=== PATIENT | male | born 1960 | race Caucasian/White ===

== ENCOUNTER 2022-05-31 23:31 | Emergency (ER) | payer OTHER, SELFPAY ==
[2022-05-31 23:40] VITALS: BP 111/84; PULSE 88; RESP 16; TEMP 36.9; O2SAT 94
[2022-06-01] MEDS: LIDOCAINE HCL 1% PF 30 ML VIAL (00:05)
[2022-06-01] MEDS: TETANUS/DIPHTHERIA TOXOIDS ADSORB 0.5 ML VIAL (*BKC) IM (00:41)
--- NOTE | 2022-06-01 00:49 | ED.WOUNDLAC ---
HPI - Wound/Laceration General Chief Complaint: Wound/Laceration Stated Complaint: laceration R hand Time Seen by Provider: 05/31/22 23:42 History of Present Illness HPI narrative: 62-year-old male presents the emergency room for evaluation of laceration to his left hand. Patient states that he was using a rubber grinder, when his hand slipped cutting the webbing of his left hand. Patient states he has full range of motion with his index and thumb fingers. Tetanus is not up-to-date injury occurred approximately 7 hours prior to arrival. Related Data Allergies Allergy/AdvReac Type Severity Reaction Status Date / Time latex Allergy Unknown Hives Verified 06/01/22 00:03 Review of Systems Review of Systems: CONSTITUTIONAL: Denies fever, chills, or sweats. EYES: Denies visual changes, redness, or discharge. ENT: Denies rhinorrhea, congestion, sore throat, or otalgia. CARDIOVASCULAR: Denies chest pain, palpitations, or edema. RESPIRATORY: Denies cough or dyspnea. GASTROINTESTINAL: Denies abdominal pain, nausea, vomiting, or diarrhea. GENITOURINARY: Denies dysuria or hematuria. SKIN: Reports laceration to left hand MUSCULOSKELETAL: Denies back pain, joint pain, or myalgia. NEUROLOGIC: Denies headache, numbness, dizziness, or weakness. PSYCHIATRIC: Denies anxiety or depression. [facility] Family History Family History Other Acute myocardial infarction Diabetes mellitus Family history of alcoholism Hypertension Exam Narrative: GENERAL: Well-appearing, well-nourished, no physical limitations, and in no acute distress. HEAD: Normocephalic, atraumatic. EYES: Conjunctivae normal, PERRLA and EOMI. ENT: External nose normal, Nares clear, no rhinorrhea or epistaxis. Mucous membranes moist. Oropharynx without tonsillar hypertrophy exudate or other lesions. External ears normal, bilateral TMs normal bilaterally NECK: Supple. No meningeal signs. No adenopathy or masses. No carotid bruits or JVD CHEST: Clear to auscultation. No respiratory distress. No wheezes rales or rhonchi. No tenderness. HEART: Regular rate and rhythm. No murmur heard. Normal peripheral pulses. EXTREMITIES: Normal range of motion. No edema. No clubbing or cyanosis left hand: Full range of motion of the thumb and index fingers actively and passively. Neurovascular is intact distally SKIN: Left hand: 5 cm laceration to the dorsal aspect of the webbing. NEURO: No focal deficits. Alert and oriented x3. MAEW. CN's II-XI intact bilaterally, normal gait PSYCH: Cooperative. Normal mood and affect. Course Vital Signs Vital signs: Vital Signs Temperature 36.9 C 05/31/22 23:40 Pulse Rate 88 05/31/22 23:40 Respiratory Rate 16 05/31/22 23:40 Blood Pressure 111/84 05/31/22 23:40 Pulse Oximetry 94 05/31/22 23:40 Oxygen Delivery Room Air 05/31/22 23:40 Temperature 36.9 C 05/31/22 23:40 Pulse Rate 88 05/31/22 23:40 Respiratory Rate 16 05/31/22 23:40 Blood Pressure 111/84 05/31/22 23:40 Pulse Oximetry 94 05/31/22 23:40 Oxygen Delivery Room Air 05/31/22 23:40 Procedures Laceration Laceration 1: Date: 06/01/22 Time: 00:53 Site: hand Side (If applicable): left Size (cm): 5 Description: irregular and contaminated Depth: simple, single layer and involves muscle layer Local Anesthetic: lidocaine 1% Amount of anesthesia used (mL): 15 Pre-repair: irrigated, irrigated extensively and extensive debridement ====== Skin Level ====== Skin layer closed with: nylon Size (cm): 4-0 Number of sutures: 11 Technique: simple, interrupted ====== Subcutaneous Layer ====== Subcutaneous layer closed with: vicryl Size: 3-0 Number of sutures: 3 Technique: simple, interrupted ====== Muscle Layer ====== ====== Tendon Layer ====== Discharge Plan Discharge Clini
[2022-06-01 01:20] VITALS: BP 110/74; PULSE 84; RESP 16; O2SAT 96
== END 2022-06-01 01:21 | disposition home or self-care (01) ==
PROVIDERS: Emergency Provider Nurse Practitioner Family
DX: S61.411A Laceration without foreign body of right hand, initial encounter (principal); W31.1XXA Contact with metalworking machines, initial encounter; Z23 Encounter for immunization
CPT/HCPCS: 12042; 90471; 90714; 96365; 99284; J0696

== ENCOUNTER 2023-11-11 06:42 | Inpatient (IN) | payer OTHER, SELFPAY ==
[2023-11-11] VITALS (37 sets, daily range): BP systolic 119–152; BP diastolic 74–105; PULSE 73–98; RESP 13–47; TEMP 36.2–36.7; O2SAT 95–100; BMI 20.8
--- NOTE | ~2023-11-11 | XR_ITS ---
EXAMINATION: XR chest 2V DATE: 11/11/2023 07:43 INDICATION: Hypoxia and shortness of breath TECHNIQUE: frontal and lateral views of the chest were obtained. COMPARISON: None FINDINGS: Increased interstitial pattern and peripheral curly B lines in the bilateral mid and lower lung zones consistent with mild pulmonary edema. There are small bilateral pleural effusions at the posterior s ulci. No pneumothorax. Heart size is normal. Mild to moderate thoracic spondylosis with mild anterior wedging of a couple lower thoracic vertebral bodies. IMPRESSION: 1. Likely congestive heart failure with mild pulmonary edema versus less likely pneumonia. 2. small bilateral pleural effusions. Reviewed, dictated and finalized at location B. PT DEVELOPER
--- NOTE | 2023-11-11 06:46 | ECG_ITS ---
Measurements Intervals [place] Rate: 100 P: [place]: 0 QRS: 102 QRSD: 102 T: 221 QT: 366 QTc: 472 Interpretive Statements ATRIAL FIBRILLATION WITH RAPID VENTRICULAR RESPONSE BASELINE ARTIFACT LIMITS INTERPRETATION NO PREVIOUS ECG AVAILABLE FOR COMPARISON Electronically Signed On 11-11-2023 16:32:38 JET INSPECTOR by Alicia Mena M.D.
--- NOTE | 2023-11-11 07:11 | PC.NURSE ---
Report given to SRI Ro at this time.
[2023-11-11 07:14] LABS: Basophils Absolute Auto 0.1 K/mm3 (0.0-0.1); Basophils Percent Auto 0.9 % (0.2-1.2); Eosinophils Absolute Auto 0.2 K/mm3 (0-0.3); Eosinophils Percent Auto 1.6 % (0-4.4); Hematocrit 41.9 % (42.0-52.0); Hemoglobin 12.9 g/dL (14.0-18.0); Immature Granulocyte Absolute 0.03 K/mm3 (0.00-0.031); Immature Granulocyte Percent A 0.3 % (0-0.5); Lymphocytes Absolute Auto 2.85 K/mm3 (0.9-3.2); Lymphocytes Percent Auto 30.4 % (18.3-44.2); Mean Corpuscular HGB Conc 30.8 g/dl (32-36); Mean Corpuscular Hemoglobin 31.9 pg (26-34); Mean Corpuscular Volume 103.7 fl (80-100); Mean Platelet Volume 9.8 fl (7.4-10.4); Monocytes Absolute Auto 0.8 K/mm3 (0.1-0.6); Monocytes Percent Auto 8.7 % (2.6-8.5); Neutrophils Absolute Auto 5.5 K/mm3 (1.3-6.7); Neutrophils Percent Auto 58.1 % (45.5-73.1); Platelet Count Result 295 k/mm3 (150-375); Red Blood Count 4.04 M/mm3 (4.6-6.20); Red Cell Distribution Width 14.3 % (11.5-14.5); White Blood Count 9.4 K/mm3 (4.5-10.0)
[2023-11-11 07:22] LABS: Alanine Aminotransferase 50 U/L (6-50); Albumin Level 4.2 g/dL (3.5-5.1); Alkaline Phosphatase 91 U/L (38-126); Anion Gap 6 mmol/L (8-16); Aspartate Amino Transferase 78 U/L (17-59); Bilirubin,Total 0.8 mg/dL (0.2-1.3); Blood Urea Nitrogen 12 mg/dL (9-20); Carbon Dioxide 28 mmol/L (22-30); Chloride 106 mmol/L (98-107); Estimated CRCL calculation 71 ml/min; Estimated Glomerular Filt Rate > 60; Glucose 179 mg/dL (65-110); Potassium 4.1 mmol/L (3.4-5.0); Sodium 140 mmol/L (137-145)
--- NOTE | 2023-11-11 07:38 | ED_ITS ---
HPI - General Adult General Chief complaint: Shortness of Breath/Dyspnea Stated complaint: SOB Time Seen by Provider: 11/11/23 06:58 History of Present Illness HPI narrative: Patient is a 63-year-old male who presents ER with shortness of breath. Reports that has been occurring more frequently over last week. It will occur with exertion. Also wakes him mouth out of sleep and he will be sweating and dyspnea. He reports he has history of COPD and this is typical of a flare. No fevers or chills or sweats. Has no chest discomfort. He has tried inhalers without improvement. Related Data Allergies Allergy/AdvReac Type Severity Reaction Status Date / Time latex Allergy Unknown Hives Verified 11/11/23 07:03 Review of Systems Review of Systems: All systems reviewed & are unremarkable except as noted in HPI and below Constitutional: Constitutional: Denies chills, Reports fatigue and Denies fever(s) Comments: Sweats ENT: Reports system reviewed and no additional complaints, except as documented Cardiovascular: Cardiovascular: Reports no additional cardiovascular complaints Respiratory: Respiratory: Denies cough, Reports dyspnea and Denies wheezing Gastrointestinal: Gastrointestinal: Reports no additional gastrointestinal complaints [facility] Past Medical History Medical History (Updated 11/11/23 @ 15:17 by Alec Loera MD) Atrial fibrillation COPD (chronic obstructive pulmonary disease) Family History Family History Other Acute myocardial infarction Diabetes mellitus Family history of alcoholism Hypertension Exam Narrative: GENERAL: Well-appearing, well-nourished, and in no acute distress. HEAD: Normocephalic, atraumatic. ENT: Mucous membranes moist. NECK: Supple. CHEST: diminished bilaterally. No respiratory distress. HEART: irregularly irregular rate and rhythm. Normal peripheral pulses. ABDOMEN: Soft, nontender, nondistended. EXTREMITIES: Normal range of motion. +1 edema. SKIN: Warm, dry, no rash. NEURO: Alert and oriented x3. PSYCH: Normal mood and affect. Course Course Emergency Course: Patient informed of lab and imaging results. Diuresis ordered. Admit to hospitalist service for further treatment evaluation. Patient does not have a char filter tank tender head nor does he report history of heart failure. Vital Signs Vital signs: Vital Signs Temperature 97.8 F 11/11/23 06:42 Pulse Rate 91 11/11/23 06:42 Respiratory Rate 22 H 11/11/23 06:42 Blood Pressure 148/93 H 11/11/23 06:42 Pulse Oximetry 97 11/11/23 06:42 Oxygen Delivery Nasal Cannula 11/11/23 06:42 Oxygen Flow Rate 4 11/11/23 06:42 Temperature 97.9 F 11/11/23 13:47 Pulse Rate 81 11/11/23 13:47 Respiratory Rate 15 11/11/23 13:47 Blood Pressure 135/101 H 11/11/23 13:47 Pulse Oximetry 99 11/11/23 13:47 Oxygen Delivery Nasal Cannula 11/11/23 07:12 Oxygen Flow Rate 3 11/11/23 07:12 Medical Decision Making Vital Signs Vital Signs: Vital Signs Temperature 97.8 F 11/11/23 06:42 Pulse Rate 91 11/11/23 06:42 Respiratory Rate 22 H 11/11/23 06:42 Blood Pressure 148/93 H 11/11/23 06:42 Pulse Oximetry 97 11/11/23 06:42 Oxygen Delivery Nasal Cannula 11/11/23 06:42 Oxygen Flow Rate 4 11/11/23 06:42 Temperature 97.9 F 11/11/23 13:47 Pulse Rate 81 11/11/23 13:47 Respiratory Rate 15 11/11/23 13:47 Blood Pressure 135/101 H 11/11/23 13:47 Pulse Oximetry 99 11/11/23 13:47 Oxygen Delivery Nasal Cannula 11/11/23 07:12 Oxygen Flow Rate 3 11/11/23 07:12 Lab Data 11/11/23 07:05 11/11/23 07:05 Labs: Lab Results 11/11/23 Range/Units 07:05 WBC 9.4 (4.5-10.0) K/mm3 RBC 4.04 L (4.6-6.20) M/mm3 Hgb 12.9 L (14.0-18.0) g/dL Hct 41.9 L (42.0-52.0) % MCV 103.7 H (80-100) fl MCH 31.9 (26-34) pg MCHC 30.8 L (32-36) g/dl RDW 14.3 (11.5-14.5) % Plt Count 295 (150-375) k/mm3 MPV 9.8 (7.4-10.4) fl Immature Gran % (Auto) 0.3 (0-0.5) % Neut % (Auto) 58.1 (45.5-73.1) % Lymph % (Auto) 30.4 (18.3-44.2) % [facility] % (Auto) 8.7 H (2.6-8.5) % Eos % (Auto) 1.6 (0-4.4) % Baso % (Auto) 0.9 (0.2-1.2) % Lymph # (Auto) 2.85 (0.9-3.2) K/mm3 [facility] # (Auto) 0.8 H (0.1-0.6) K/mm3 Eos # (Auto) 0.2 (0-0.3) K/mm3 Baso # (Auto) 0.1 (0.0-0.1) K/mm3 Abs Immat Gran (auto) 0.03 (0.00-0.031) K/mm3 Absolute Neuts (auto) 5.5 (1.3-6.7) K/mm3 Absolute Nucleated RBC 0.0 (0.0-0.012) K/mm3 Nucleated RBC % 0.0 (0.0-0.2) % Sodium 140 (137-145) mmol/L Potassium 4.1 (3.4-5.0) mmol/L Chloride 106 (98-107) mmol/L Carbon Dioxide 28 (22-30) mmol/L Anion Gap 6 L (8-16) mmol/L BUN 12 (9-20) mg/dL Creatinine 0.90 (0.7-1.3) mg/dL Estim Creat Clear Calc 71 ml/min Estimated GFR > 60 (59 - ) Glucose 179 H (65-110) mg/dL Calcium 9.0 (8.4-10.2) mg/dL Total Bilirubin 0.8 (0.2-1.3) mg/dL AST 78 H (17-59) U/L ALT 50 (6-50) U/L Alkaline Phosphatase 91 (38-126) U/L NT-Pro-B Natriuret Pep 6560 H (19.9-100) pg/mL Total Protein 8.0 (6.3-8.2) g/dL Albumin 4.2 (3.5-5.1) g/dL Imaging Data Radiologist's impression: ITS Impressions Chest X-Ray 11/11/23 08:21 IMPRESSION: 1. Likely congestive heart failure with mild pulmonary edema versus less likely pneumonia. 2. small bilateral pleural effusions. ECG Data EKG #1: ECG completion date: 11/11/23 ECG completion time: 06:55 EKG Interpretation: tachycardia (100), atrial fibrillation, non-specific ST changes, normal QRS, normal QT and left axis Critical Care Time Critical Care Time Critical Care Time: Yes Total Critical Care Time: 35 Discharge Plan Discharge Clinical Impression: New onset of congestive heart failure, Acute hypoxic respiratory failure, COPD (chronic obstructive pulmonary disease) Patient Disposition: Still a Patient Condition: Stable
[2023-11-11] MEDS: IPRATROPIUM 0.5 MG/ALBUTEROL SULFATE 2.5 MG AMPUL.NEB 3 ML INHALATION (08:00)
[2023-11-11 10:11] LABS: NT Pro B Type Natriuretic Pept 6560 pg/mL (19.9-100)
[2023-11-11] MEDS: FUROSEMIDE INJ 40 MG/4 ML VIAL IV PUSH ×2 (11:24→20:19)
--- NOTE | 2023-11-11 12:21 | P.HP_ITS ---
H&P: HPI History of Present Illness Date/Time: 11/11/23 12:21 Chief Complaint: shortness of breath Narrative: This is a 63-year-old male with a significant past medical history of COPD, atrial fibrillation who presented to the emergency for evaluation of his shortness of breath. Patient states that he has experiencing worsening shortness of breath over the last week. He also has been experiencing orthopnea sweating and dyspnea at night that wakes him up out of his sleep. Patient does state that he lays flat in the bed and has noticed that he does not have the symptoms whenever he is in the recliner. He tried using his inhalers at home without any improvement in his symptoms. On examination today patient is alert and oriented x3, lying in the bed. He denies any fever, chills, headache, nausea, vomiting, diarrhea, constipation, abdominal pain, chest pain. He endorses shortness of breath, diaphoresis Workup in the hospital includes a chest x-ray which is showing congestive heart failure with mild pulmonary edema, small bilateral pleural effusions, peripheral [place] B lines in the bilateral mid and lower lung zones. EKG showing AFib with RVR with a rate of 100. Labs revealed hemoglobin of 12.9, hematocrit 41.9, AST 78, proBNP 6560. Patient was given a DuoNeb and 40 mg of IV Lasix while in the ED. Patient is afebrile, B/P ranging 129/81-147/96, currently on 3L NC. Cardiology consulted. Plan for echo tomorrow. Review of Systems Review of Systems: All systems reviewed & are unremarkable except as noted in HPI and below Constitutional: Constitutional: Reports as per HPI and Reports no additional constitutional complaints Eyes: Eyes: Reports as per HPI and Reports no additional eye complaints ENT: Reports system reviewed and no additional complaints, except as documented and Reports as per HPI Cardiovascular: Cardiovascular: Reports as per HPI and Reports no additional cardiovascular complaints Respiratory: Respiratory: Reports as per HPI and Reports no additional respiratory complaints Gastrointestinal: Gastrointestinal: Reports as per HPI and Reports no additional gastrointestinal complaints Genitourinary: Genitourinary: Reports no additional male genitourinary complaints and Reports as per HPI Musculoskeletal: Musculoskeletal: Reports no additional musculoskeletal complaints and Reports as per HPI Integumentary/Breasts: Skin/Breast: Reports system reviewed and no additional complaints, except as docu and Reports as per HPI Neurologic: Reports system reviewed and no additional complaints, except as documented and Reports as per HPI Psychiatric: Psychiatric: Reports no additional psychiatric complaints and Reports as per HPI [facility] Past Medical History Medical History (Updated 11/11/23 @ 17:04 by Marce Webb APRN) Alcohol abuse Atrial fibrillation COPD (chronic obstructive pulmonary disease) Opioid abuse Surgical History Surgical History History of hernia surgery Family History Family History Father Diabetes mellitus Hypertension Acute myocardial infarction Sibling Family history of alcoholism Mother Dementia Social History Social History Smoking status: Current some day smoker Alcohol intake: former Substance use: former Substance use type: painkillers Other substance usage details: October 24 was discharge date from hospital for alcoholism. 2 drinks since Do You Feel Safe in your Home?: Yes Lack of Transportation: YES Lack of Food: Never True Current Housing: I Have Housing Concerned About Future Housing: No Difficulty Paying Gas/Electric Bills: No Difficulty Paying for Meds: No Currently Unemployed: No Education: High School Diploma/GED Difficulty w/ Childcare or Family Care: No Spiritual care concerns: No Meds Home Medications and Allergies Home Medications Medication Instructions Recorded Confirmed Type cephalexin 500 mg capsule 500 mg PO Q8H #21 caps 06/01/22 Rx meloxicam 15 mg tablet 15 mg PO DAILY #14 tabs 06/01/22 Rx Allergies Allergy/AdvReac Type Severity Reaction Status Date / Time latex Allergy Unknown Hives Verified 11/11/23 07:03 Vital Signs Vital Signs - 24 hr 11/11/23 06:42 11/11/23 06:58 11/11/23 07:02 Temperature 97.8 F Pulse Rate 91 Respiratory Rate 22 H Blood Pressure 148/93 H Pulse Oximetry 97 96 97 Oxygen Delivery Nasal Cannula Nasal Cannula Nasal Cannula Oxygen Flow Rate 4 4 4 11/11/23 07:02 11/11/23 07:12 11/11/23 07:33 Temperature Pulse Rate 93 83 Respiratory Rate 28 H Blood Pressure 144/99 H Pulse Oximetry 100 99 Oxygen Delivery Nasal Cannula Oxygen Flow Rate 3 11/11/23 08:00 11/11/23 08:10 11/11/23 08:53 Temperature Pulse Rate 86 81 80 Respiratory Rate 24 H 24 H 21 H Blood Pressure 139/100 H Pulse Oximetry 98 Oxygen Delivery Oxygen Flow Rate 11/11/23 09:59 11/11/23 07:42 11/11/23 07:44 Temperature Pulse Rate 90 88 96 Respiratory Rate 19 26 H 24 H Blood Pressure 129/81 152/105 H Pulse Oximetry 97 96 97 Oxygen Delivery Oxygen Flow Rate 11/11/23 07:45 11/11/23 07:46 11/11/23 08:00 Temperature Pulse Rate 92 90 92 Respiratory Rate 25 H 29 H 22 H Blood Pressure 135/102 H Pulse Oximetry 99 99 Oxygen Delivery Oxygen Flow Rate 11/11/23 08:15 11/11/23 08:30 11/11/23 08:31 Temperature Pulse Rate 98 80 73 Respiratory Rate 22 H 47 H 29 H Blood Pressure 139/100 H Pulse Oximetry Oxygen Delivery Oxygen Flow Rate 11/11/23 08:45 11/11/23 09:00 11/11/23 09:15 Temperature Pulse Rate 79 90 83 Respiratory Rate 16 18 18 Blood Pressure Pulse Oximetry 100 96 Oxygen Delivery Oxygen Flow Rate 11/11/23 09:16 11/11/23 09:30 11/11/23 09:45 Temperature Pulse Rate 81 84 77 Respiratory Rate 17 16 15 Blood Pressure 129/81 Pulse Oximetry 99 100 100 Oxygen Delivery Oxygen Flow Rate 11/11/23 10:00 11/11/23 10:01 11/11/23 10:15 Temperature Pulse Rate 79 84 81 Respiratory Rate 19 21 H 16 Blood Pressure 147/96 H Pulse Oximetry 98 98 99 Oxygen Delivery Oxygen Flow Rate 11/11/23 10:34 11/11/23 10:53 11/11/23 11:05 Temperature Pulse Rate 81 78 85 Respiratory Rate 14 13 14 Blood Pressure Pulse Oximetry 99 100 100 Oxygen Delivery Oxygen Flow Rate 11/11/23 11:15 Temperature Pulse Rate 77 Respiratory Rate 13 Blood Pressure 135/97 H Pulse Oximetry 100 Oxygen Delivery Oxygen Flow Rate Exam Narrative: General: In no acute distress, well nourished Head: atraumatic, no encephalopathy Eyes: EOMI, right pupil 2mm and reactive, left pupil 3mm and reactive, sclera clear ENT: moist mucous membranes, nasal passages clear Neck: supple, no JVD, no adenopathy, trachea midline Cardiac: Normal S1 and S2. Currently in A fib No murmur, gallops or friction rubs, peripheral pulses intact. Respiratory: Lungs course, no adventitious lung sounds, no acute respiratory distress or use of accessory muscles, currently on 3L NC Gastrointestinal: soft, slightly distended, non-tender, normoactive bowel sounds. : voiding without difficulty. Extremities: moves all extremities well, no edema, good ROM, strength 5/5 Skin: clean, dry, intact. No wounds or lesions. Neuro: Alert and oriented x4, cranial nerves intact, no neuro deficits. Psych: normal mood, normal affect, interactive H&P: Results Labs Labs: Short CBC 11/11/23 Range/Units 07:05 WBC 9.4 (4.5-10.0) K/mm3 Hgb 12.9 L (14.0-18.0) g/dL Hct 41.9 L (42.0-52.0) % Plt Count 295 (150-375) k/mm3 BMP 11/11/23 07:05 Sodium 140 Potassium 4.1 Chloride 106 Carbon Dioxide 28 BUN 12 Creatinine 0.90 Glucose 179 H Calcium 9.0 Liver Function 11/11/23 Range/Units 07:05 Total Bilirubin 0.8 (0.2-1.3) mg/dL AST 78 H (17-59) U/L ALT 50 (6-50) U/L Alkaline Phosphatase 91 (38-126) U/L Albumin 4.2 (3.5-5.1) g/dL Imaging Chest x-ray: Radiologist's impression: EXAMINATION: XR chest 2V DATE: 11/11/2023 07:43 INDICATION: Hypoxia and shortness of breath TECHNIQUE: frontal and lateral views of the chest were obtained. COMPARISON: None FINDINGS: Increased interstitial pattern and peripheral curly B lines in the bilateral mid and lower lung zones consistent with mild pulmonary edema. There are small bilateral pleural effusions at the posterior sulci. No pneumothorax. Heart size is normal. Mild to moderate thoracic spondylosis with mild anterior wedging of a couple lower thoracic vertebral bodies. IMPRESSION: 1. Likely congestive heart failure with mild pulmonary edema versus less likely pneumonia. 2. small bilateral pleural effusions. Reviewed, dictated and finalized at location B. AL WORKER Assessment and Plan Assessment and plan (1) Acute hypoxic respiratory failure: Code(s): J96.01 - Acute respiratory failure with hypoxia Status: Acute Assessment and Plan: * likely secondary to new onset CHF * patient started on 3 L nasal cannula * wean O2 for an oxygen saturation of greater than 92% * chest x-ray showing congestive heart failure with mild pulmonary edema, small bilateral pleural effusions * he was given 40 mg of IV Lasix while in the ED and a DuoNeb * continue Lasix 40 mg IV push q.12 hour (2) New onset of congestive heart failure: Code(s): I50.9 - Heart failure, unspecified Status: Acute Assessment and Plan: * new onset, patient presented with shortness of breath, orthopnea that has been worsening over the last week * cardiology consult * patient currently on 3 L nasal cannula * he was given 40 mg of IV Lasix well in the ED along with a DuoNeb * continue Lasix 40 mg IV push q.12 hour * heart healthy diet * dietitian consult * EKG showing AFib with RVR with a rate of 100 * echo ordered * continuous cardiac monitoring ordered * daily weight * strict intake and output * Patient takes losartan 50 mg daily, we will go ahead and restart(information obtained pharmacy) (3) COPD (chronic obstructive pulmonary disease): Code(s): J44.9 - Chronic obstructive pulmonary disease, unspecified Status: Chronic Assessment and Plan: * Not on any home O2 or CPAP * Albuterol inhaler ordered shortness of breath p.r.n. (4) Atrial fibrillation: Code(s): I48.91 - Unspecified atrial fibrillation Status: Chronic Assessment and Plan: * EKG showing AFib with RVR, rate of 100 * Currently Xarelto 20 mg p.o. b.i.d. per pharmacy in [place] (5) Alcohol abuse: Code(s): F10.10 - Alcohol abuse, uncomplicated Status: Acute Assessment and Plan: * 175 ml of whiskey a day, recently quit * Patient has no history of withdrawal however he had a recent admission the beginning of October for alcohol intoxication and fentanyl abuse. He was at [facility]. States that he essentially stopped drinking at that point but he did a drinker to since then that he did report to us. * PAWSS score >5 noted by bedside nursing * CIRI protocol ordered * Started thiamin and folic acid * Will check vitamin and folic acid in the morning on lab * Recent admission at [facility] for alcohol intoxication fentanyl overdose * Currently on Suboxone however this is non formulary here and patient did not bring along with him (6) Opioid abuse: Code(s): F11.10 - Opioid abuse, uncomplicated Status: Acute Assessment and Plan: * History of fentanyl abuse * See above Quality VTE Prophylaxis VTE prophylaxis: pharmacologic ordered
[2023-11-11] MEDS: RIVAROXABAN 20 MG TABLET PO (18:15)
[2023-11-11] MEDS: chlordiazePOXIDE (*CRX) 25 MG CAPSULE PO ×2 (18:15→23:17)
--- NOTE | 2023-11-11 19:28 | ADMGEN ---
This patient, Javad Gant, was admitted to IMU Room 205-02 at 1605. Patient/family oriented to hospital policies and general routines including ID bracelet, bed and alarms, visiting hours, pain management, procedures, bathroom and other care routines, personal items, smoking policy, room service/diet, and visiting hours. Information on how to activate the Rapid Response Team has been discussed. Patient/Family are encouraged to report perceived risks to care and to ask questions if they do not understand what they are told or what they should do.
[2023-11-11] MEDS: MONTELUKAST SODIUM 10 MG TABLET PO (20:19)
[2023-11-11 21:00] LABS: Glucose Point of Care 203 mg/dl (65-105)
[2023-11-11] MEDS: NICOTINE (*PBKC) 21 MG PATCH 1 PATCH TRANSDERM (23:15)
[2023-11-11] MEDS: PANTOPRAZOLE 40 MG TABLET PO (23:17)
[2023-11-12] VITALS (18 sets, daily range): BP systolic 108–127; BP diastolic 62–74; PULSE 61–123; RESP 12–16; TEMP 36.1–36.6; O2SAT 92–98; BMI 21.7
[2023-11-12 04:46] LABS: Hematocrit 32.6 % (42.0-52.0); Hemoglobin 10.4 g/dL (14.0-18.0); Mean Corpuscular HGB Conc 31.9 g/dl (32-36); Mean Corpuscular Hemoglobin 31.8 pg (26-34); Mean Corpuscular Volume 99.7 fl (80-100); Mean Platelet Volume 9.7 fl (7.4-10.4); Platelet Count Result 258 k/mm3 (150-375); Red Blood Count 3.27 M/mm3 (4.6-6.20); White Blood Count 7.7 K/mm3 (4.5-10.0)
[2023-11-12 04:57] LABS: Alanine Aminotransferase 31 U/L (6-50); Albumin Level 3.4 g/dL (3.5-5.1); Alkaline Phosphatase 68 U/L (38-126); Anion Gap 3 mmol/L (8-16); Aspartate Amino Transferase 31 U/L (17-59); Bilirubin,Total 0.5 mg/dL (0.2-1.3); Blood Urea Nitrogen 18 mg/dL (9-20); Calcium 8.5 mg/dL (8.4-10.2); Carbon Dioxide 33 mmol/L (22-30); Chloride 100 mmol/L (98-107); Estimated CRCL calculation 77 ml/min; Estimated Glomerular Filt Rate > 60; Glucose 122 mg/dL (65-110); Magnesium 1.8 mg/dL (1.6-2.3); Potassium 3.3 mmol/L (3.4-5.0); Sodium 136 mmol/L (137-145)
[2023-11-12] MEDS: chlordiazePOXIDE (*CRX) 25 MG CAPSULE PO ×3 (05:33→17:27)
--- NOTE | 2023-11-12 06:00 | ECHO_ITS ---
Patient Info Name: Javad Gant Age: 63 years : 1960 Gender: Male Ht: 70 in Wt: 150 lbs BSA: 1.83 m2 HR: 89 bpm BP: 127 / 61 mmHg Heart Rhythm: Sinus Rhythm Technical Quality: Fair Exam Date: 11/12/2023 8:57 AM Exam Location: Echo Lab Patient Status: Inpatient Admit Date: 11/11/2023 Staff Ordering Physician: Alec Loera MD Bb Shot Packer: Vivienne Becerra RDCS Attending Provider: Ralph Velasquez MD Referring Physician: Evaristo TUCKER; Exam Type: CA echo dop color flow w con Study Info Indications - CHF Complete two-dimensional, color flow and Doppler transthoracic echocardiogram is performed with contrast to opacify the left ventricle and to improve the deliniation of the left ventricle endocardial borders. Contrast/Agitated Saline Contrast/Ag. Saline: Definity Amount: 3.00 ml Summary 1. Left ventricular chamber dimension is normal. 2. Left ventricular systolic function is normal, estimated at 50-55%. 3. There is moderately increased left ventricular wall thickness. 4. Right ventricular systolic function is normal. 5. Left atrial chamber dimension is severely enlarged. 6. Right atrial chamber dimension is moderately enlarged. 7. There is moderate to severe mitral valve regurgitation. 8. There is mild tricuspid valve regurgitation. 9. Pulmonary hypertension, estimated pulmonary arterial systolic pressure is 45 mmHg. Left Ventricle Left ventricular chamber dimension is normal. Left ventricular systolic function is normal, estimated at 50-55%. There is moderately increased left ventricular wall thickness. Right Ventricle Right ventricular chamber dimension is normal. Right ventricular systolic function is normal. Left Atria Left atrial chamber dimension is severely enlarged. Right Atria Right atrial chamber dimension is moderately enlarged. Atrial Septum Intact interatrial septum visualized by color flow imaging. Aortic Valve The aortic valve is not well visualized. There is no aortic valve stenosis. There is trace aortic valve regurgitation. There is mild aortic valve calcification. Pulmonic Valve The pulmonic valve is not well visualized. There is trace pulmonic regurgitation. Mitral Valve There is moderate to severe mitral valve regurgitation. Tricuspid Valve There is mild tricuspid valve regurgitation. Pulmonary hypertension, estimated pulmonary arterial systolic pressure is 45 mmHg. Pericardium/Pleural There is no pericardial effusion. Inferior Vena Cava Dilated inferior vena cava with <50% collapse upon inspiration consistent with elevated right atrial pressure, 15 mmHg. Aorta The aortic root size at the sinus of Valsalva is normal. Left Ventricular Outflow Tract Name Value Normal LVOT 2D LVOT Diameter 1.94 cm LVOT Doppler LVOT Peak Gradient 2 mmHg LVOT Mean Gradient 1 mmHg LVOT VTI 14.89 cm LVOT VTI/AV VTI Ratio 0.65 LVOT Stroke Volume 43.89 ml LVOT CO 2.77 l/min LVOT CI 1.51 L/min/m2 Pulmonic Valve Name Value Normal RVOT Doppler RVOT Peak Gradient 1 mmHg PV Doppler PV Peak Gradient 3 mmHg Mitral Valve Name Value Normal MV Doppler MV Decel [place] 323.00 cm/s2 MV PHT 0 s MV Area (PHT) 1.94 cm2 4.00-5.00 MV Regurgitation Doppler MR Peak Gradient 52 mmHg MV Diastolic Function MV E Peak Velocity 126.38 cm/s MV A Peak Velocity 82.20 cm/s MV E/A 1.54 MV Decel Time 0 s MV Annular TDI MV E/e' (Septal) 16.21 <=8.00 MV E/e' (Lateral) 14.34 <=8.00 MV E/e' (Average) 15.27 Tricuspid Valve Name Value Normal TV Regurgitation Doppler TR Peak Velocity 274.03 cm/s TR Peak Gradient 30 mmHg Estimated PAP/RSVP RA Pressure 15 mmHg <=5 PA Systolic Pressure 45 mmHg <36 RV Systolic Pressure 45 mmHg <36 Aortic Valve Name Value Normal AV Doppler AV Peak Velocity 126.03 cm/s AV Peak Gradient 6 mmHg AV Mean Gradient 4 mmHg AV VTI 23.04 cm AV Area (Cont Eq VTI) 1.91 cm2 >=3.00 AV Area (Cont Eq Nestor) 1.67 cm2 AV Regurgitation 2D LVOT Area 2.95 cm2 Ventricles Name Value Normal LV Dimensions 2D/MM IVS Diastolic Thickness (2D) 1.32 cm 0.60-1.00 LVID Diastole (2D) 4.39 cm 4.20-5.80 LVIW Diastolic Thickness (2D) 1.25 cm 0.60-1.00 LVID Systole (2D) 3.19 cm 2.50-4.00 LVOT Diameter 1.94 cm LV Mass (2D Cubed) 210.80 g 88.00-224.00 LV Mass Index (2D Cubed) 0.01 g/cm2 0.00-0.01 Relative Wall Thickness (2D) 0.57 LV Fractional Shortening/Ejection Fraction 2D/MM LV Fractional Shortening (2D) 27 % 25-43 LV EF (2D Teicholz) 53 % 52-72 LV Diastolic Volume (4C MOD) 196.41 ml LV EF (4C MOD) 50 % LV Diastolic Volume (2C MOD) 177.08 ml LV EF (2C MOD) 57 % LV Diastolic Volume (BP MOD) 200.09 ml 62.00-150.00 LV Diastolic Volume Index (BP MOD) 0.11 l/m2 0.03-0.07 LV Systolic Volume (BP MOD) 88.85 ml 21.00-61.00 LV Systolic Volume Index (BP MOD) 0.05 l/m2 0.01-0.03 LV EF (BP MOD) 56 % 52-72 LV Diastolic Length (4C) 11.27 cm LV Systolic Length (4C) 8.97 cm LV Stroke Volume (4C MOD) 98.46 ml Atria Name Value Normal LA Dimensions LA Volume (4C A-L) 106.88 ml RA Dimensions RA Area (4C) 25.62 cm2 <=18.00 Report Signatures
[2023-11-12 06:03] LABS: Folic Acid 12.5 ng/mL (2.76->20)
[2023-11-12 06:40] LABS: Glucose Point of Care 155 mg/dl (65-105)
[2023-11-12] MEDS: NICOTINE (*PBKC) 21 MG PATCH 1 PATCH TRANSDERM (08:08)
[2023-11-12] MEDS: POTASSIUM CHLORIDE 20 MEQ ER TABLET 40 MEQ PO (08:08)
[2023-11-12] MEDS: LOSARTAN POTASSIUM 50 MG TABLET PO (08:08)
[2023-11-12] MEDS: FOLIC ACID 1 MG TABLET PO (08:08)
[2023-11-12] MEDS: GABAPENTIN 300 MG CAPSULE PO (08:08)
[2023-11-12] MEDS: THIAMINE HCL 100 MG TABLET PO (08:08)
[2023-11-12] MEDS: FUROSEMIDE INJ 40 MG/4 ML VIAL IV PUSH ×2 (08:08→20:05)
[2023-11-12] MEDS: PANTOPRAZOLE 40 MG TABLET PO (08:08)
--- NOTE | 2023-11-12 08:55 | P.CONCA_ITS ---
Assessment and Plan Assessment and plan (1) Cardiomyopathy: Code(s): I42.9 - Cardiomyopathy, unspecified Status: Acute Assessment and Plan: EF 40% on previous echo from September. Repeat echo today showed EF 50-55%, mod-severe MR * Etiology unclear - alcohol induced CMY, or 2/2 valvular disease. * Cannot exclude underlying CAD * Continue losartan * Will also add spironolactone (2) New onset of congestive heart failure: Code(s): I50.9 - Heart failure, unspecified Status: Acute Assessment and Plan: Secondary to above. Improving with IV furosemide. * Monitor I&O * Daily weights * Heart healthy diet * CHF counseling (3) Atrial fibrillation: Code(s): I48.91 - Unspecified atrial fibrillation Status: Chronic Assessment and Plan: Atrial fibrillation with controlled ventricular response. Continue Xarelto for cardioembolic risk reduction. (4) Acute hypoxic respiratory failure: Code(s): J96.01 - Acute respiratory failure with hypoxia Status: Acute Assessment and Plan: Improved with furosemide and DuoNebs. History of Present Illness History of Present Illness Consult date/time: 11/12/23 08:55 Reason For Visit: New onset CHF, Hypoxia, Pulmonary edema Narrative: Javad Gant is a 63 year old male with history of alcohol abuse, opiate abuse, COPD, hypertension, atrial fibrillation, and systolic heart failure, EF 40%. He comes to the hospital with significant shortness of breath. States he has been experiencing orthopnea and paroxysmal nocturnal dyspnea for a few nights but day of presentation was very short of breath during the day. Patient states he couldn't get any air. He does have intermittent lower extremity edema. Denies any chest pain or palpitations. He has been given IV furosemide and his breathing has improved. Currently lying comfortably in bed with no complaints. Review of Systems Review of Systems: All systems reviewed & are unremarkable except as noted in HPI and below PMFSH Past Medical History Medical History Alcohol abuse Atrial fibrillation COPD (chronic obstructive pulmonary disease) Opioid abuse Surgical History Surgical History History of hernia surgery Family History Family History Father Diabetes mellitus Hypertension Acute myocardial infarction Sibling Family history of alcoholism Mother Dementia Social History Social History Smoking status: Current some day smoker Alcohol intake: former Substance use: former Substance use type: painkillers Other substance usage details: October 24 was discharge date from hospital for alcoholism. 2 drinks since Do You Feel Safe in your Home?: Yes Lack of Transportation: YES Lack of Food: Never True Current Housing: I Have Housing Concerned About Future Housing: No Difficulty Paying Gas/Electric Bills: No Difficulty Paying for Meds: No Currently Unemployed: No Education: High School Diploma/GED Difficulty w/ Childcare or Family Care: No Spiritual care concerns: No Meds Home Medications and Allergies Home Medications Medication Instructions Recorded Confirmed Type albuterol sulfate 90 mcg/actuation 2 puff inhalation DAILY 11/11/23 11/11/23 History aerosol inhaler buprenorphine 8 mg-naloxone 2 mg 1 tablet sublingual DAILY 11/11/23 11/11/23 History sublingual tablet gabapentin 300 mg capsule 300 mg PO DAILY 11/11/23 11/11/23 History losartan 50 mg tablet 50 mg PO DAILY 11/11/23 11/11/23 History rivaroxaban 20 mg tablet (Xarelto) 20 mg PO DAILY 11/11/23 11/11/23 History umeclidinium 62.5 mcg-vilanterol 1 inh inhalation DAILY 11/11/23 11/11/23 History 25 mcg/actuation powdr for inhalation (Anoro Ellipta) Allergies Allergy/AdvReac Type Severity Reaction Status Date / Time latex Allergy Unknown Hives Verified 11/11/23 07:03 Vital Signs Vital Signs - 24 hr 11/11/23 09:59 11/11/23 09:00 11/11/23 09:15 Temperature Pulse Rate 90 90 83 Respiratory Rate 19 18 18 Blood Pressure 129/81 Pulse Oximetry 97 100 96 Oxygen Delivery Oxygen Flow Rate 11/11/23 09:16 11/11/23 09:30 11/11/23 09:45 Temperature Pulse Rate 81 84 77 Respiratory Rate 17 16 15 Blood Pressure 129/81 Pulse Oximetry 99 100 100 Oxygen Delivery Oxygen Flow Rate 11/11/23 10:00 11/11/23 10:01 11/11/23 10:15 Temperature Pulse Rate 79 84 81 Respiratory Rate 19 21 H 16 Blood Pressure 147/96 H Pulse Oximetry 98 98 99 Oxygen Delivery Oxygen Flow Rate 11/11/23 10:34 11/11/23 10:53 11/11/23 11:05 Temperature Pulse Rate 81 78 85 Respiratory Rate 14 13 14 Blood Pressure Pulse Oximetry 99 100 100 Oxygen Delivery Oxygen Flow Rate 11/11/23 11:15 11/11/23 12:53 11/11/23 13:47 Temperature 36.6 C Pulse Rate 77 91 81 Respiratory Rate 13 14 15 Blood Pressure 135/97 H 144/87 H 135/101 H Pulse Oximetry 100 99 99 Oxygen Delivery Oxygen Flow Rate 11/11/23 15:52 11/11/23 16:05 11/11/23 18:00 Temperature 36.2 C L Pulse Rate 78 77 78 Respiratory Rate 20 17 Blood Pressure 119/74 130/74 Pulse Oximetry 99 99 Oxygen Delivery Oxygen Flow Rate 11/11/23 20:00 11/11/23 20:00 11/11/23 20:00 Temperature 36.7 C Pulse Rate 85 76 Respiratory Rate 16 Blood Pressure 123/77 Pulse Oximetry 99 95 Oxygen Delivery Nasal Cannula Oxygen Flow Rate 3 11/12/23 00:00 11/11/23 21:26 11/11/23 22:00 Temperature 36.3 C L Pulse Rate 69 75 Respiratory Rate 16 Blood Pressure 108/62 Pulse Oximetry 98 95 Oxygen Delivery Nasal Cannula Oxygen Flow Rate 3 11/12/23 00:00 11/12/23 00:00 11/12/23 02:00 Temperature Pulse Rate 71 78 Respiratory Rate Blood Pressure Pulse Oximetry 97 Oxygen Delivery Nasal Cannula Oxygen Flow Rate 3 11/12/23 04:00 11/12/23 04:00 11/12/23 04:00 Temperature 36.4 C Pulse Rate 62 61 Respiratory Rate 16 Blood Pressure 127/63 Pulse Oximetry 98 98 Oxygen Delivery Nasal Cannula Oxygen Flow Rate 3 11/12/23 06:00 11/12/23 07:42 Temperature 36.6 C Pulse Rate 66 73 Respiratory Rate 16 Blood Pressure 115/71 Pulse Oximetry 98 Oxygen Delivery Oxygen Flow Rate Exam Const: General: comfortable, no acute distress, alert and awake Orientat ion/consciousness: patient oriented x3 HENMT: Head: normal to inspection Eyes: General: appearance normal, both eyes and all related structures Pupils: Equal, round and reactive pupils present Neck: Neck: normal visual inspection, supple and no JVD Carotids: normal carotid upstroke Resp: Effort & Inspection: normal respiratory effort Auscultation: not clear to auscultation bilaterally and rales Cardio: Rate: regular rate Rhythm: abnormal rhythm irregularly irregular Heart sounds: S1 normal heart sound present, S2 normal heart sound present and Murmur heart sound present GI: Auscultation: normal bowel sounds Skin: General skin exam: normal color Neuro: General: patient oriented x3 Cranial nerves: Yes Equal, round and reactive pupils present Extrem: General: normal to inspection Psych: Appearance: grossly normal Mental Status: mental status grossly normal Results Labs and Meds 11/13/23 04:05 11/13/23 04:05 Lab results: Cardiac Enzymes 11/12/23 Range/Units 04:23 AST 31 (17-59) U/L CBC 11/12/23 Range/Units 04:23 WBC 7.7 (4.5-10.0) K/mm3 RBC 3.27 L (4.6-6.20) M/mm3 Hgb 10.4 L (14.0-18.0) g/dL Hct 32.6 L (42.0-52.0) % Plt Count 258 (150-375) k/mm3 Comprehensive Metabolic Panel 11/12/23 Range/Units 04:23 Sodium 136 L (137-145) mmol/L Potassium 3.3 L (3.4-5.0) mmol/L Chloride 100 (98-107) mmol/L Carbon Dioxide 33 H (22-30) mmol/L BUN 18 (9-20) mg/dL Creatinine 0.80 (0.7-1.3) mg/dL Glucose 122 H (65-110) mg/dL Calcium 8.5 (8.4-10.2) mg/dL AST 31 (17-59) U/L ALT 31 (6-50) U/L Alkaline Phosphatase 68 (38-126) U/L Total Protein 6.0 L (6.3-8.2) g/dL Albumin 3.4 L (3.5-5.1) g/dL Intake and Output 11/11/23 11/12/23 11/12/23 23:59 07:59 15:59 Intake Total 490 644 Output Total 700 1300 Balance -210 -656 Intake: Oral 490 644 Output: Urine 700 1300 Patient Weight 11/12/23 23:59 Weight 68.6 kg
[2023-11-12] MEDS: PERFLUTREN LIPID MICROSPHERES 1.5 ML VIAL DILUTED TO 10 ML TOTAL VOLUME IV PUSH (09:30)
--- NOTE | 2023-11-12 11:09 | IVDEFINITY ---
Prior to administration of IV Definity the patient was educated on the risks and benefits of the imaging enhancing agent including potential adverse side effects. The patient verbalized understanding. Allergies were verified. No exclusion criteria were identified and at least one of the following inclusion criteria were met: 1) physician request, 2) patient technically difficult to image (per the [place] [employer] guidelines of two or more segments not discernable within the apical view), or 3) questionable left ventricular function. ?
[2023-11-12 11:46] LABS: Glucose Point of Care 94 mg/dl (65-105)
[2023-11-12 16:27] LABS: Glucose Point of Care 105 mg/dl (65-105)
[2023-11-12] MEDS: RIVAROXABAN 20 MG TABLET PO (17:27)
--- NOTE | 2023-11-12 17:31 | PM.IMPN ---
Progress Note: A&P Assessment and Plan (1) Acute hypoxic respiratory failure: Code(s): J96.01 - Acute respiratory failure with hypoxia Status: Acute Assessment and Plan: Patient presents with SOB and found to be hypoxic. CXR showing pulmonary edema vs PNA. Likely hypoxia secondary to new onset CHF lasix IV started Patient started on 4L nasal cannula but weaned to 3L so far. Wean O2 for an oxygen saturation of greater than 92% (2) New onset of congestive heart failure: Code(s): I50.9 - Heart failure, unspecified Status: Acute Assessment and Plan: Patient presented with shortness of breath and orthopnea that has been worsening over the last week. He was found to be hypoxic and CXR consistent with pulmonary edema. BNP 6560 EKG showing AFib with RVR (100) with baseline artifact. Lasix started with good UOP. Heart healthy diet and dietitian consulted Echo EF 50-55%, normal RV fxn, biatrial enlargement, mod-severe MR and pHTN (45) Strict I/Os. Daily weights. CHF related to valvular disease? Cardiology consulted. Wean O2 as tolerated (3) COPD (chronic obstructive pulmonary disease): Code(s): J44.9 - Chronic obstructive pulmonary disease, unspecified Status: Chronic Assessment and Plan: Patient with COPD but not on any home O2 or CPAP Albuterol inhaler ordered PRN for shortness of breath (4) Atrial fibrillation: Code(s): I48.91 - Unspecified atrial fibrillation Status: Chronic Assessment and Plan: Patient with known chronic AFib. EKG showing AFib with RVR, rate of 100 Not on rate controlling agents. On Xarelto which was continued (5) Alcohol abuse: Code(s): F10.10 - Alcohol abuse, uncomplicated Status: Acute Assessment and Plan: Patient drinks about 175 ml of whiskey a day and has recently quit Patient has no history of withdrawal however he had a recent admission the beginning of October for alcohol intoxication and fentanyl abuse. He was at [facility]. States that he essentially stopped drinking at that point but he did have a drink since then that he did report to us. PAWSS score >5 noted by bedside nursing CIWA protocol ordered Started thiamin and folic acid Vitamin B12 and folic acid were normal Librium scheduled. Monitor (6) Opioid abuse: Code(s): F11.10 - Opioid abuse, uncomplicated Status: Acute Assessment and Plan: Recent admission at [facility] for alcohol intoxication and fentanyl overdose Currently on Suboxone however this is non formulary here and patient did not bring along with him As above Home with Narcan Rx Plan DVT prophylaxis - Xarelto Code status - full Subjective Date/time seen: 11/12/23 17:31 Interval history: 63yo male with COPD, alcoholism and AFib who presented to the emergency for evaluation of his shortness of breath.?? He feels well today. No SOB or RIVERA. No CP. Was hospitalized 10/03-10/24/23 for detox from alcohol and fentanyl. He admits to last drinking on 10/26/23 but nothing since. He was having orthopnea prior to admission but slept better last night. Exam Narrative: AF 97.2 115/74 74 16 95% 3L Gen - NARD Chest - distant BS, nml RR CV - irregularly irregular. Abd - Soft, NT/ND, Positive BS Ext - No pedal edema Psych - Nml mood and affect. no tremors Skin - Warm and dry Objective Data Vital Signs Vital Signs: Vital Signs - 24 hr 11/11/23 18:00 11/11/23 20:00 11/11/23 20:00 Temperature 98.1 F Pulse Rate 78 85 76 Respiratory Rate 16 Blood Pressure 123/77 Pulse Oximetry 99 Oxygen Delivery Oxygen Flow Rate 11/11/23 20:00 11/12/23 00:00 11/11/23 21:26 Temperature 97.4 F L Pulse Rate 69 Respiratory Rate 16 Blood Pressure 108/62 Pulse Oximetry 95 98 95 Oxygen Delivery Nasal Cannula Nasal Cannula Oxygen Flow Rate 3 3 11/11/23 22:00 11/12/23 00:00 11/12/23 00:00 Temperature Pulse Rate 75 71 Respiratory Rate Blood Pressure Pulse Oximetry 97 Oxygen Delivery Nasal Cannula Oxygen Flow Rate 3 11/12/23 02:00 11/12/23 04:00 11/12/23 04:00 Temperature Pulse Rate 78 62 Respiratory Rate Blood Pressure Pulse Oximetry 98 Oxygen Delivery Nasal Cannula Oxygen Flow Rate 3 11/12/23 04:00 11/12/23 06:00 11/12/23 07:42 Temperature 97.6 F 97.8 F Pulse Rate 61 66 73 Respiratory Rate 16 16 Blood Pressure 127/63 115/71 Pulse Oximetry 98 98 Oxygen Delivery Oxygen Flow Rate 11/12/23 08:00 11/12/23 08:00 11/12/23 10:00 Temperature Pulse Rate 71 72 Respiratory Rate Blood Pressure Pulse Oximetry 98 Oxygen Delivery Nasal Cannula Oxygen Flow Rate 3 11/12/23 11:25 11/12/23 12:00 11/12/23 12:00 Temperature 97.4 F L Pulse Rate 86 123 H Respiratory Rate 16 Blood Pressure 116/73 Pulse Oximetry 95 95 Oxygen Delivery Nasal Cannula Oxygen Flow Rate 3 11/12/23 14:00 11/12/23 16:00 11/12/23 16:00 Temperature Pulse Rate 81 74 Respiratory Rate Blood Pressure Pulse Oximetry 95 Oxygen Delivery Nasal Cannula Oxygen Flow Rate 3 11/12/23 15:36 Temperature 97.2 F L Pulse Rate 75 Respiratory Rate 16 Blood Pressure 115/74 Pulse Oximetry 97 Oxygen Delivery Oxygen Flow Rate Intake/Output Intake/Output: Intake & Output 11/09/23 11/10/23 11/11/23 11/12/23 23:59 23:59 23:59 23:59 Intake Total 490 1674 Output Total 2807 7715 Balance -2310 -1201 Meds/Results Medications: Active Medications Generic Name Dose Route Start Last Admin Trade Name Freq PRN Reason Stop Dose Admin Acetaminophen 650 mg 11/11/23 12:45 Acetaminophen 325 Mg Tablet PO Q4H PRN Mild Pain (1-3) or Fever Hydrocodone Bitart/Acetaminophen 1 tab 11/11/23 10:44 Hydrocodone/Acetaminophen (*Crx) 5-325 Mg Tablet PO Q4H PRN Pain Rated 4-6 Albuterol 2 puff 11/11/23 16:58 Albuterol Sulfate (*Sp) Aerosol 1 Puff INHALATION Q6HRT PRN Shortness Of Breath Bisacodyl 10 mg 11/11/23 12:45 Bisacodyl 10 Mg Suppository RECTAL ONCE PRN Constipation Bisacodyl 5 mg 11/11/23 12:45 Bisacodyl 5 Mg Tablet Ec PO DAILY PRN Constipation Chlordiazepoxide HCl 25 mg 11/11/23 18:00 11/12/23 17:27 Chlordiazepoxide (*Crx) 25 Mg Capsule PO 25 mg Q6HR MIGUEL A Administration Folic Acid 1 mg 11/12/23 09:00 11/12/23 08:08 Folic Acid 1 Mg Tablet PO 1 mg DAILY MIGUEL A Administration Furosemide 40 mg 11/11/23 21:00 11/12/23 08:08 Furosemide Inj 40 Mg/4 Ml Vial IV PUSH 40 mg Q12HR MIGUEL A Administration Gabapentin 300 mg 11/12/23 09:00 11/12/23 08:08 Gabapentin 300 Mg Capsule PO 300 mg DAILY MIGUEL A Administration Haloperidol Lactate 2 mg 11/11/23 17:28 Haloperidol Lactate 5 Mg/Ml Vial IV PUSH Q2H PRN Delirium Lorazepam 2 mg 11/11/23 17:28 Lorazepam Inj (*Crx) 2 Mg/Ml Vial IV PUSH Q2H PRN CIWA > 15 Losartan Potassium 50 mg 11/12/23 09:00 11/12/23 08:08 Losartan Potassium 50 Mg Tablet PO 50 mg DAILY MIGUEL A Administration Montelukast Sodium 10 mg 11/11/23 21:00 11/11/23 20:19 Montelukast Sodium 10 Mg Tablet PO 10 mg HS MIGUEL A Administration Morphine Sulfate 2 mg 11/11/23 10:44 Morphine Sulfate (*Crx) 2 Mg/Ml Inj IV PUSH Q2H PRN Pain Rated 7-10 Nicotine 1 patch 11/11/23 20:35 11/12/23 08:08 Nicotine (*Pbkc) 21 Mg Patch TRANSDERM 1 patch DAILY [facility] Administration Ondansetron HCl 4 mg 11/11/23 17:28 Ondansetron Inj 4 Mg/2 Ml Vial IV PUSH Q6H PRN Nausea And Vomiting Pantoprazole Sodium 40 mg 11/11/23 20:35 11/12/23 08:08 Pantoprazole 40 Mg Tablet PO 40 mg QAM MIGUEL A Administration Rivaroxaban 20 mg 11/11/23 17:00 11/12/23 17:27 Rivaroxaban 20 Mg Tablet PO 20 mg DAILY@1700 [facility] Administration Spironolactone 12.5 mg 11/13/23 09:00 Spironolactone 12.5 Mg Tablet PO QAM [facility] Thiamine HCl 100 mg 11/12/23 09:00 11/12/23 08:08 Thiamine Hcl 100 Mg Tablet PO 100 mg QAM [facility] Administration Radiology Results: ITS Impressions Chest X-Ray 11/11/23 08:21 IMPRESSION: 1. Likely congestive heart failure with mild pulmonary edema versus less likely pneumonia. 2. small bilateral pleural effusions. Labs Labs: Laboratory Results - last 24 hr 11/11/23 11/12/23 11/12/23 20:42 00:28 04:23 WBC 7.7 RBC 3.27 L Hgb 10.4 L Hct 32.6 L MCV 99.7 MCH 31.8 MCHC 31.9 L RDW 14.0 Plt Count 258 MPV 9.7 Sodium 136 L Potassium 3.3 L Chloride 100 Carbon Dioxide 33 H Anion Gap 3 L BUN 18 Creatinine 0.80 Estim Creat Clear Calc 77 Estimated GFR > 60 Glucose 122 H POC Capillary Glucose 203 H 155 H Calcium 8.5 Magnesium 1.8 Total Bilirubin 0.5 AST 31 ALT 31 Alkaline Phosphatase 68 Total Protein 6.0 L Albumin 3.4 L Vitamin B12 446.0 Folate 12.5 11/12/23 11/12/23 11:16 16:15 WBC RBC Hgb Hct MCV MCH MCHC RDW Plt Count MPV Sodium Potassium Chloride Carbon Dioxide Anion Gap BUN Creatinine Estim Creat Clear Calc Estimated GFR Glucose POC Capillary Glucose 94 105 Calcium Magnesium Total Bilirubin AST ALT Alkaline Phosphatase Total Protein Albumin Vitamin B12 Folate
[2023-11-12] MEDS: MONTELUKAST SODIUM 10 MG TABLET PO (20:05)
[2023-11-12 20:25] LABS: Glucose Point of Care 101 mg/dl (65-105)
[2023-11-13] VITALS (19 sets, daily range): BP systolic 105–127; BP diastolic 60–94; PULSE 75–114; RESP 16–20; TEMP 35.9–36.3; O2SAT 93–97
[2023-11-13] MEDS: chlordiazePOXIDE (*CRX) 25 MG CAPSULE PO ×2 (00:09→11:47)
[2023-11-13 04:41] LABS: Hematocrit 38.7 % (42.0-52.0); Hemoglobin 12.2 g/dL (14.0-18.0); Mean Corpuscular HGB Conc 31.5 g/dl (32-36); Mean Corpuscular Hemoglobin 31.4 pg (26-34); Mean Corpuscular Volume 99.5 fl (80-100); Mean Platelet Volume 9.6 fl (7.4-10.4); Platelet Count Result 276 k/mm3 (150-375); Red Blood Count 3.89 M/mm3 (4.6-6.20); Red Cell Distribution Width 13.6 % (11.5-14.5); White Blood Count 6.6 K/mm3 (4.5-10.0)
[2023-11-13 04:53] LABS: Alanine Aminotransferase 31 U/L (6-50); Albumin Level 3.6 g/dL (3.5-5.1); Alkaline Phosphatase 72 U/L (38-126); Anion Gap 5 mmol/L (8-16); Aspartate Amino Transferase 26 U/L (17-59); Bilirubin,Total 0.5 mg/dL (0.2-1.3); Blood Urea Nitrogen 24 mg/dL (9-20); Calcium 9.1 mg/dL (8.4-10.2); Carbon Dioxide 36 mmol/L (22-30); Chloride 97 mmol/L (98-107); Estimated CRCL calculation 80 ml/min; Estimated Glomerular Filt Rate > 60; Glucose 87 mg/dL (65-110); Magnesium 1.8 mg/dL (1.6-2.3); Potassium 3.3 mmol/L (3.4-5.0); Sodium 138 mmol/L (137-145)
[2023-11-13 07:43] LABS: Glucose Point of Care 111 mg/dl (65-105)
[2023-11-13] MEDS: SPIRONOLACTONE 12.5 MG TABLET PO (08:26)
[2023-11-13] MEDS: THIAMINE HCL 100 MG TABLET PO (08:26)
[2023-11-13] MEDS: NICOTINE (*PBKC) 21 MG PATCH 1 PATCH TRANSDERM (08:26)
[2023-11-13] MEDS: PANTOPRAZOLE 40 MG TABLET PO (08:26)
[2023-11-13] MEDS: LOSARTAN POTASSIUM 50 MG TABLET PO (08:27)
[2023-11-13] MEDS: FUROSEMIDE INJ 40 MG/4 ML VIAL IV PUSH (08:27)
[2023-11-13] MEDS: GABAPENTIN 300 MG CAPSULE PO (08:27)
[2023-11-13] MEDS: POTASSIUM CHLORIDE 20 MEQ PACKET (FOR LIQUID) 40 MEQ PO (08:27)
[2023-11-13] MEDS: FOLIC ACID 1 MG TABLET PO (08:27)
--- NOTE | 2023-11-13 09:34 | P.CDI_ITS ---
CDI Query Clarification Request CHF noted in the assessment and plan. Elevated BNP on 11/11/23 lab work. 11/11/23 chest xray notes pulmonary edema. Patient presented with increasing shortness of breath and orthopnea. Patient receiving Lasix IV. 11/12/23 Echo notes EF 50-55%. Please specify type and acuity of heart failure if known. * Acute * Chronic * Acute on Chronic * Unknown * Systolic * Diastolic * Combined Systolic and Diastolic * Unknown
--- NOTE | 2023-11-13 10:47 | P.PNCA_ITS ---
Progress Note: A&P Assessment and Plan (1) New onset of congestive heart failure: Code(s): I50.9 - Heart failure, unspecified Status: Acute Assessment and Plan: Secondary to above. Improving with IV furosemide. * Will shift to p.o. furosemide today 40mg b.i.d. * Monitor I&O * Daily weights * Heart healthy diet * CHF counseling * Wean O2 as tolerated, goal SpO2 >92% * Check BMP in a.m. (2) Cardiomyopathy: Code(s): I42.9 - Cardiomyopathy, unspecified Status: Acute Assessment and Plan: EF 40% on previous echo from September. Repeat echo today showed EF 50-55%, mod-severe MR * Continue losartan * Continue spironolactone * Could consider jardiance if affordable (3) Atrial fibrillation: Code(s): I48.91 - Unspecified atrial fibrillation Status: Chronic Assessment and Plan: Had been rate controlled, but has had some RVR in the past 24 hours, rates up to 150's. He denies any symptoms. * Will add metoprolol tartrate 25mg q12h. This can be titrated as needed * Continue Xarelto for cardioembolic risk reduction. * Continue telemetry (4) Acute hypoxic respiratory failure: Code(s): J96.01 - Acute respiratory failure with hypoxia Status: Acute Assessment and Plan: Improved with furosemide and DuoNebs. Wean O2 as tolerated Subjective Date/time seen: 11/13/23 10:47 Interval history: Cardiology follow up for CHF, AF, MR Feeling better today. Remains on O2 per nasal cannula. States he took oxygen off to go to the bathroom and became short of breath. No chest pain or palpitations. Review of Systems Review of Systems: All systems reviewed & are unremarkable except as noted in HPI and below Exam Const: General: comfortable, no acute distress, alert and awake Orientation/consciousness: patient oriented x3 HENMT: Head: normal to inspection Eyes: General: appearance normal, both eyes and all related structures Pupils: Equal, round and reactive pupils present Neck: Neck: normal visual inspection, supple and no JVD Carotids: normal carotid upstroke Resp: Effort & Inspection: normal respiratory effort Auscultation: not clear to auscultation bilaterally and rales Cardio: Rate: regular rate Rhythm: regular rhythm and abnormal rhythm irregularly irregular Heart sounds: S1 normal heart sound present, S2 normal heart sound present and Murmur heart sound present GI: Auscultation: normal bowel sounds Skin: General skin exam: normal color Neuro: General: patient oriented x3 Cranial nerves: Yes Equal, round and reactive pupils present Extrem: General: normal to inspection Psych: Appearance: grossly normal Mental Status: mental status grossly normal Objective Data Vital Signs Vital Signs: Vital Signs - 24 hr 11/12/23 11:25 11/12/23 12:00 11/12/23 12:00 Temperature 36.3 C L Pulse Rate 86 123 H Pulse Rate [Bilateral Pedal (Dorsalis Pedis)] Respiratory Rate 16 Blood Pressure 116/73 Pulse Oximetry 95 95 Oxygen Delivery Nasal Cannula Oxygen Flow Rate 3 11/12/23 14:00 11/12/23 16:00 11/12/23 16:00 Temperature Pulse Rate 81 74 Pulse Rate [Bilateral Pedal (Dorsalis Pedis)] Respiratory Rate Blood Pressure Pulse Oximetry 95 Oxygen Delivery Nasal Cannula Oxygen Flow Rate 3 11/12/23 15:36 11/12/23 18:00 11/12/23 19:55 Temperature 36.2 C L 36.2 C L Pulse Rate 75 87 83 Pulse Rate [Bilateral Pedal (Dorsalis Pedis)] Respiratory Rate 16 16 Blood Pressure 115/74 116/71 Pulse Oximetry 97 92 Oxygen Delivery Oxygen Flow Rate 11/12/23 19:58 11/12/23 20:00 11/12/23 23:44 Temperature 36.1 C L Pulse Rate 87 Pulse Rate [Bilateral Pedal (Dorsalis Pedis)] 81 Respiratory Rate 12 Blood Pressure 118/71 Pulse Oximetry 95 94 Oxygen Delivery Nasal Cannula Oxygen Flow Rate 3 11/13/23 00:00 11/12/23 20:00 11/12/23 22:00 Temperature Pulse Rate 78 87 Pulse Rate [Bilateral Pedal (Dorsalis Pedis)] Respiratory Rate Blood Pressure Pulse Oximetry 95 Oxygen Delivery Nasal Cannula Oxygen Flow Rate 3 11/13/23 00:00 11/13/23 02:00 11/13/23 04:00 Temperature 36.3 C L Pulse Rate 97 82 85 Pulse Rate [Bilateral Pedal (Dorsalis Pedis)] Respiratory Rate 16 Blood Pressure 127/94 H Pulse Oximetry 94 Oxygen Delivery Oxygen Flow Rate 11/13/23 04:00 11/13/23 04:00 11/13/23 04:00 Temperature Pulse Rate 82 Pulse Rate [Bilateral Pedal (Dorsalis Pedis)] 76 Respiratory Rate Blood Pressure Pulse Oximetry 96 Oxygen Delivery Nasal Cannula Oxygen Flow Rate 3 11/13/23 06:00 11/13/23 07:44 11/13/23 08:00 Temperature 35.9 C L Pulse Rate 77 77 Pulse Rate [Bilateral Pedal (Dorsalis Pedis)] Respiratory Rate 20 Blood Pressure 125/75 Pulse Oximetry 95 95 Oxygen Delivery Nasal Cannula Oxygen Flow Rate 2 Intake/Output Intake/Output: Intake & Output 11/10/23 11/11/23 11/12/23 11/13/23 23:59 23:59 23:59 23:59 Intake Total 490 1914 720 Output Total 2800 2075 Balance -2310 -961 720 Meds/Results Medications: Active Medications Generic Name Dose Route Start Last Admin Trade Name Freq PRN Reason Stop Dose Admin Acetaminophen 650 mg 11/11/23 12:45 Acetaminophen 325 Mg Tablet PO Q4H PRN Mild Pain (1-3) or Fever Hydrocodone Bitart/Acetaminophen 1 tab 11/11/23 10:44 Hydrocodone/Acetaminophen (*Crx) 5-325 Mg Tablet PO Q4H PRN Pain Rated 4-6 Albuterol 2 puff 11/11/23 16:58 Albuterol Sulfate (*Sp) Aerosol 1 Puff INHALATION Q6HRT PRN Shortness Of Breath Bisacodyl 10 mg 11/11/23 12:45 Bisacodyl 10 Mg Suppository RECTAL ONCE PRN Constipation Bisacodyl 5 mg 11/11/23 12:45 Bisacodyl 5 Mg Tablet Ec PO DAILY PRN Constipation Chlordiazepoxide HCl 25 mg 11/11/23 18:00 11/13/23 08:19 Chlordiazepoxide (*Crx) 25 Mg Capsule PO Not Given Q6HR MIGUEL A Folic Acid 1 mg 11/12/23 09:00 11/13/23 08:27 Folic Acid 1 Mg Tablet PO 1 mg DAILY MIGUEL A Administration Furosemide 40 mg 11/11/23 21:00 11/13/23 08:27 Furosemide Inj 40 Mg/4 Ml Vial IV PUSH 40 mg Q12HR MIGUEL A Administration Gabapentin 300 mg 11/12/23 09:00 11/13/23 08:27 Gabapentin 300 Mg Capsule PO 300 mg DAILY MIGUEL A Administration Haloperidol Lactate 2 mg 11/11/23 17:28 Haloperidol Lactate 5 Mg/Ml Vial IV PUSH Q2H PRN Delirium Lorazepam 2 mg 11/11/23 17:28 Lorazepam Inj (*Crx) 2 Mg/Ml Vial IV PUSH Q2H PRN CIWA > 15 Losartan Potassium 50 mg 11/12/23 09:00 11/13/23 08:27 Losartan Potassium 50 Mg Tablet PO 50 mg DAILY MIGUEL A Administration Montelukast Sodium 10 mg 11/11/23 21:00 11/12/23 20:05 Montelukast Sodium 10 Mg Tablet PO 10 mg HS MIGUEL A Administration Morphine Sulfate 2 mg 11/11/23 10:44 Morphine Sulfate (*Crx) 2 Mg/Ml Inj IV PUSH Q2H PRN Pain Rated 7-10 Nicotine 1 patch 11/11/23 20:35 11/13/23 08:26 Nicotine (*Pbkc) 21 Mg Patch TRANSDERM 1 patch DAILY MIGUEL A Administration Ondansetron HCl 4 mg 11/11/23 17:28 Ondansetron Inj 4 Mg/2 Ml Vial IV PUSH Q6H PRN Nausea And Vomiting Pantoprazole Sodium 40 mg 11/11/23 20:35 11/13/23 08:26 Pantoprazole 40 Mg Tablet PO 40 mg QAM MIGUEL A Administration Rivaroxaban 20 mg 11/11/23 17:00 11/12/23 17:27 Rivaroxaban 20 Mg Tablet PO 20 mg DAILY@1700 [facility] Administration Spironolactone 12.5 mg 11/13/23 09:00 11/13/23 08:26 Spironolactone 12.5 Mg Tablet PO 12.5 mg QAM [facility] Administration Thiamine HCl 100 mg 11/12/23 09:00 11/13/23 08:26 Thiamine Hcl 100 Mg Tablet PO 100 mg QAM [facility] Administration Radiology Results: ITS Impressions Chest X-Ray 11/11/23 08:21 IMPRESSION: 1. Likely congestive heart failure with mild pulmonary edema versus less likely pneumonia. 2. small bilateral pleural effusions. Labs Labs: Laboratory Results - last 24 hr 11/12/23 11/12/23 11/12/23 11:16 16:15 19:58 WBC RBC Hgb Hct MCV MCH MCHC RDW Plt Count MPV Sodium Potassium Chloride Carbon Dioxide Anion Gap BUN Creatinine Estim Creat Clear Calc Estimated GFR Glucose POC Capillary Glucose 94 105 101 Calcium Magnesium Total Bilirubin AST ALT Alkaline Phosphatase Total Protein Albumin 11/13/23 11/13/23 04:05 07:38 WBC 6.6 RBC 3.89 L Hgb 12.2 L Hct 38.7 L MCV 99.5 MCH 31.4 MCHC 31.5 L RDW 13.6 Plt Count 276 MPV 9.6 Sodium 138 Potassium 3.3 L Chloride 97 L Carbon Dioxide 36 H Anion Gap 5 L BUN 24 H Creatinine 0.80 Estim Creat Clear Calc 80 Estimated GFR > 60 Glucose 87 POC Capillary Glucose 111 H Calcium 9.1 Magnesium 1.8 Total Bilirubin 0.5 AST 26 ALT 31 Alkaline Phosphatase 72 Total Protein 7.0 Albumin 3.6 Quality VTE Prophylaxis VTE prophylaxis: pharmacologic ordered
[2023-11-13] MEDS: METOPROLOL TARTRATE 25 MG TABLET PO ×2 (11:47→20:11)
[2023-11-13 12:31] LABS: Glucose Point of Care 90 mg/dl (65-105)
--- NOTE | 2023-11-13 15:46 | PM.IMPN ---
Progress Note: A&P Assessment and Plan (1) Acute hypoxic respiratory failure: Code(s): J96.01 - Acute respiratory failure with hypoxia Status: Acute Assessment and Plan: Patient presents with SOB and found to be hypoxic. CXR showing pulmonary edema vs PNA. Likely hypoxia secondary to new onset CHF Lasix IV started Patient started on 4L nasal cannula but weaned to 1L Wean O2 for an oxygen saturation of greater than 92% (2) New onset of congestive heart failure: Code(s): I50.9 - Heart failure, unspecified Status: Acute Assessment and Plan: Patient presented with shortness of breath and orthopnea that has been worsening over the last week. He was found to be hypoxic and CXR consistent with pulmonary edema. BNP 6560 EKG showing AFib with RVR (100) with baseline artifact. Echo EF 50-55%, normal RV fxn, biatrial enlargement, mod-severe MR and pHTN (45) Lasix started with good UOP. [place] has acute diastolic CHF. CHF related to valvular disease? Heart healthy diet and dietitian consulted Strict I/Os. Daily weights. Cardiology consulted and appreciate their input Wean O2 as tolerated (3) Mitral regurgitation: Code(s): I34.0 - Nonrheumatic mitral (valve) insufficiency Status: Acute Assessment and Plan: Patient found to have moderte to sever MR. Could be playing a part in his CHF. Will need to be followed for this with serial checks. (4) COPD (chronic obstructive pulmonary disease): Code(s): J44.9 - Chronic obstructive pulmonary disease, unspecified Status: Chronic Assessment and Plan: Patient with COPD but not on any home O2 or CPAP Albuterol inhaler ordered PRN for shortness of breath (5) Atrial fibrillation: Code(s): I48.91 - Unspecified atrial fibrillation Status: Chronic Assessment and Plan: Patient with known chronic AFib. EKG showing AFib with RVR, rate of 100 Home meds clarified: he is on Metoprolol succinate 100mg daily and Digoxin 0.125mg daily at home On Xarelto which was continued Metoprolol added back at lower dose. Follow (6) Alcohol abuse: Code(s): F10.10 - Alcohol abuse, uncomplicated Status: Acute Assessment and Plan: Patient drinks about 175 ml of whiskey a day and has recently quit Patient has no history of withdrawal however he had a recent admission the beginning of October for alcohol intoxication and fentanyl abuse. He was at [facility]. States that he did have a drink since discharge then that he did report to us. Vitamin B12 and folic acid were normal PAWSS score >5 noted by bedside nursing. CIWA score = 0 Continue thiamine and folic acid Librium scheduled but will change this to prn Monitor (7) Opioid abuse: Code(s): F11.10 - Opioid abuse, uncomplicated Status: Acute Assessment and Plan: Recent admission at [facility] for alcohol intoxication and fentanyl overdose Currently on Suboxone however this is non formulary here and patient did not bring along with him As above Home with Narcan Rx Plan DVT prophylaxis - Xarelto Code status - full Subjective Date/time seen: 11/13/23 15:46 Interval history: 63yo male with COPD, alcoholism and AFib who presented to the emergency for evaluation of his shortness of breath.?? No problems overnight. Voiding well. SOB improved. Exam Narrative: AF 97.1 119/66 75 20 97% 1L Gen - NARD Chest - distant BS, nml RR CV - irregularly irregular. Tele showing AFib with mostly controlled rate. Abd - Soft, NT/ND, Positive BS Ext - No pedal edema Psych - Nml mood and affect. Skin - Warm and dry Objective Data Vital Signs Vital Signs: Vital Signs - 24 hr 11/12/23 16:00 11/12/23 16:00 11/12/23 18:00 Temperature Pulse Rate 74 87 Pulse Rate [Bilateral Pedal (Dorsalis Pedis)] Respiratory Rate Blood Pressure Pulse Oximetry 95 Oxygen Delivery Nasal Cannula Oxygen Flow Rate 3 11/12/23 19:55 11/12/23 19:58 11/12/23 20:00 Temperature 97.1 F L Pulse Rate 83 Pulse Rate [Bilateral Pedal (Dorsalis Pedis)] 81 Respiratory Rate 16 Blood Pressure 116/71 Pulse Oximetry 92 95 Oxygen Delivery Nasal Cannula Oxygen Flow Rate 3 11/12/23 23:44 11/13/23 00:00 11/12/23 20:00 Temperature 96.9 F L Pulse Rate 87 78 Pulse Rate [Bilateral Pedal (Dorsalis Pedis)] Respiratory Rate 12 Blood Pressure 118/71 Pulse Oximetry 94 95 Oxygen Delivery Nasal Cannula Oxygen Flow Rate 3 11/12/23 22:00 11/13/23 00:00 11/13/23 02:00 Temperature Pulse Rate 87 97 82 Pulse Rate [Bilateral Pedal (Dorsalis Pedis)] Respiratory Rate Blood Pressure Pulse Oximetry Oxygen Delivery Oxygen Flow Rate 11/13/23 04:00 11/13/23 04:00 11/13/23 04:00 Temperature 97.3 F L Pulse Rate 85 Pulse Rate [Bilateral Pedal (Dorsalis Pedis)] 76 Respiratory Rate 16 Blood Pressure 127/94 H Pulse Oximetry 94 96 Oxygen Delivery Nasal Cannula Oxygen Flow Rate 3 11/13/23 04:00 11/13/23 06:00 11/13/23 07:44 Temperature 96.6 F L Pulse Rate 82 77 77 Pulse Rate [Bilateral Pedal (Dorsalis Pedis)] Respiratory Rate 20 Blood Pressure 125/75 Pulse Oximetry 95 Oxygen Delivery Oxygen Flow Rate 11/13/23 08:00 11/13/23 08:00 11/13/23 10:00 Temperature Pulse Rate 103 H 97 Pulse Rate [Bilateral Pedal (Dorsalis Pedis)] Respiratory Rate Blood Pressure Pulse Oximetry 95 Oxygen Delivery Nasal Cannula Oxygen Flow Rate 2 11/13/23 11:38 11/13/23 11:47 11/13/23 12:00 Temperature 97.1 F L Pulse Rate 99 103 H 114 H Pulse Rate [Bilateral Pedal (Dorsalis Pedis)] Respiratory Rate 20 Blood Pressure 119/66 Pulse Oximetry 97 Oxygen Delivery Oxygen Flow Rate 11/13/23 12:00 11/13/23 14:00 Temperature Pulse Rate 75 Pulse Rate [Bilateral Pedal (Dorsalis Pedis)] Respiratory Rate Blood Pressure Pulse Oximetry 97 Oxygen Delivery Nasal Cannula Oxygen Flow Rate 1 Intake/Output Intake/Output: Intake & Output 11/10/23 11/11/23 11/12/23 11/13/23 23:59 23:59 23:59 23:59 Intake Total 730 4954 1440 Output Total 8252 5951 Pkxaobt -1369 -477 1440 Meds/Results Medications: Active Medications Generic Name Dose Route Start Last Admin Trade Name Freq PRN Reason Stop Dose Admin Acetaminophen 650 mg 11/11/23 12:45 Acetaminophen 325 Mg Tablet PO Q4H PRN Mild Pain (1-3) or Fever Hydrocodone Bitart/Acetaminophen 1 tab 11/11/23 10:44 Hydrocodone/Acetaminophen (*Crx) 5-325 Mg Tablet PO Q4H PRN Pain Rated 4-6 Albuterol 2 puff 11/11/23 16:58 Albuterol Sulfate (*Sp) Aerosol 1 Puff INHALATION Q6HRT PRN Shortness Of Breath Bisacodyl 10 mg 11/11/23 12:45 Bisacodyl 10 Mg Suppository RECTAL ONCE PRN Constipation Bisacodyl 5 mg 11/11/23 12:45 Bisacodyl 5 Mg Tablet Ec PO DAILY PRN Constipation Chlordiazepoxide HCl 25 mg 11/11/23 18:00 11/13/23 11:47 Chlordiazepoxide (*Crx) 25 Mg Capsule PO 25 mg Q6HR MIGUEL A Administration Folic Acid 1 mg 11/12/23 09:00 11/13/23 08:27 Folic Acid 1 Mg Tablet PO 1 mg DAILY MIGUEL A Administration Furosemide 40 mg 11/13/23 17:00 Furosemide 40 Mg Tablet PO BID MIGUEL A Gabapentin 300 mg 11/12/23 09:00 11/13/23 08:27 Gabapentin 300 Mg Capsule PO 300 mg DAILY MIGUEL A Administration Haloperidol Lactate 2 mg 11/11/23 17:28 Haloperidol Lactate 5 Mg/Ml Vial IV PUSH Q2H PRN Delirium Lorazepam 2 mg 11/11/23 17:28 Lorazepam Inj (*Crx) 2 Mg/Ml Vial IV PUSH Q2H PRN CIWA > 15 Losartan Potassium 50 mg 11/12/23 09:00 11/13/23 08:27 Losartan Potassium 50 Mg Tablet PO 50 mg DAILY MIGUEL A Administration Metoprolol Tartrate 25 mg 11/13/23 11:05 11/13/23 11:47 Metoprolol Tartrate 25 Mg Tablet PO 25 mg Q12HR MIGUEL A Administration Montelukast Sodium 10 mg 11/11/23 21:00 11/12/23 20:05 Montelukast Sodium 10 Mg Tablet PO 10 mg HS MIGUEL A Administration Morphine Sulfate 2 mg 11/11/23 10:44 Morphine Sulfate (*Crx) 2 Mg/Ml Inj IV PUSH Q2H PRN Pain Rated 7-10 Nicotine 1 patch 11/11/23 20:35 11/13/23 08:26 Nicotine (*Pbkc) 21 Mg Patch TRANSDERM 1 patch DAILY MIGUEL A Administration Ondansetron HCl 4 mg 11/11/23 17:28 Ondansetron Inj 4 Mg/2 Ml Vial IV PUSH Q6H PRN Nausea And Vomiting Pantoprazole Sodium 40 mg 11/11/23 20:35 11/13/23 08:26 Pantoprazole 40 Mg Tablet PO 40 mg QAM [facility] Administration Rivaroxaban 20 mg 11/11/23 17:00 11/12/23 17:27 Rivaroxaban 20 Mg Tablet PO 20 mg DAILY@1700 [facility] Administration Spironolactone 12.5 mg 11/13/23 09:00 11/13/23 08:26 Spironolactone 12.5 Mg Tablet PO 12.5 mg QAM [facility] Administration Thiamine HCl 100 mg 11/12/23 09:00 11/13/23 08:26 Thiamine Hcl 100 Mg Tablet PO 100 mg QAM [facility] Administration Radiology Results: ITS Impressions Chest X-Ray 11/11/23 08:21 IMPRESSION: 1. Likely congestive heart failure with mild pulmonary edema versus less likely pneumonia. 2. small bilateral pleural effusions. Labs Labs: Laboratory Results - last 24 hr 11/12/23 11/12/23 11/13/23 16:15 19:58 04:05 WBC 6.6 RBC 3.89 L Hgb 12.2 L Hct 38.7 L MCV 99.5 MCH 31.4 MCHC 31.5 L RDW 13.6 Plt Count 276 MPV 9.6 Sodium 138 Potassium 3.3 L Chloride 97 L Carbon Dioxide 36 H Anion Gap 5 L BUN 24 H Creatinine 0.80 Estim Creat Clear Calc 80 Estimated GFR > 60 Glucose 87 POC Capillary Glucose 105 101 Calcium 9.1 Magnesium 1.8 Total Bilirubin 0.5 AST 26 ALT 31 Alkaline Phosphatase 72 Total Protein 7.0 Albumin 3.6 11/13/23 11/13/23 07:38 11:36 WBC RBC Hgb Hct MCV MCH MCHC RDW Plt Count MPV Sodium Potassium Chloride Carbon Dioxide Anion Gap BUN Creatinine Estim Creat Clear Calc Estimated GFR Glucose POC Capillary Glucose 111 H 90 Calcium Magnesium Total Bilirubin AST ALT Alkaline Phosphatase Total Protein Albumin
[2023-11-13 16:06] LABS: Glucose Point of Care 112 mg/dl (65-105)
[2023-11-13] MEDS: FUROSEMIDE 40 MG TABLET PO (17:50)
[2023-11-13] MEDS: RIVAROXABAN 20 MG TABLET PO (17:50)
[2023-11-13] MEDS: MONTELUKAST SODIUM 10 MG TABLET PO (20:12)
[2023-11-13 20:35] LABS: Glucose Point of Care 130 mg/dl (65-105)
[2023-11-14] VITALS (19 sets, daily range): BP systolic 98–140; BP diastolic 44–90; PULSE 64–122; RESP 15–28; TEMP 35.9–36.6; O2SAT 93–97
[2023-11-14 05:10] LABS: Hemoglobin 13.4 g/dL (14.0-18.0); Mean Corpuscular HGB Conc 31.9 g/dl (32-36); Mean Corpuscular Hemoglobin 31.8 pg (26-34); Mean Corpuscular Volume 99.5 fl (80-100); Mean Platelet Volume 9.8 fl (7.4-10.4); Platelet Count Result 300 k/mm3 (150-375); Red Blood Count 4.22 M/mm3 (4.6-6.20); Red Cell Distribution Width 13.6 % (11.5-14.5); White Blood Count 7.3 K/mm3 (4.5-10.0)
[2023-11-14 05:16] LABS: Alanine Aminotransferase 24 U/L (6-50); Albumin Level 3.7 g/dL (3.5-5.1); Alkaline Phosphatase 73 U/L (38-126); Anion Gap 4 mmol/L (8-16); Aspartate Amino Transferase 24 U/L (17-59); Bilirubin,Total 0.5 mg/dL (0.2-1.3); Blood Urea Nitrogen 32 mg/dL (9-20); Calcium 9.2 mg/dL (8.4-10.2); Carbon Dioxide 35 mmol/L (22-30); Chloride 96 mmol/L (98-107); Estimated CRCL calculation 72 ml/min; Estimated Glomerular Filt Rate > 60; Glucose 115 mg/dL (65-110); Potassium 3.7 mmol/L (3.4-5.0); Sodium 135 mmol/L (137-145)
[2023-11-14] MEDS: THIAMINE HCL 100 MG TABLET PO (09:16)
[2023-11-14] MEDS: NICOTINE (*PBKC) 21 MG PATCH 1 PATCH TRANSDERM (09:17)
[2023-11-14] MEDS: SPIRONOLACTONE 12.5 MG TABLET PO (09:17)
[2023-11-14] MEDS: PANTOPRAZOLE 40 MG TABLET PO (09:17)
[2023-11-14] MEDS: METOPROLOL TARTRATE 25 MG TABLET PO (09:17)
[2023-11-14] MEDS: FUROSEMIDE 40 MG TABLET PO ×2 (09:18→17:31)
[2023-11-14] MEDS: GABAPENTIN 300 MG CAPSULE PO (09:18)
[2023-11-14] MEDS: FOLIC ACID 1 MG TABLET PO (09:18)
[2023-11-14] MEDS: LOSARTAN POTASSIUM 50 MG TABLET PO (09:18)
--- NOTE | 2023-11-14 11:32 | PM.PNCARD ---
Progress Note: A&P Assessment and Plan (1) New onset of congestive heart failure: Code(s): I50.9 - Heart failure, unspecified Status: Acute Assessment and Plan: Secondary to above. Continue current b.i.d. dosing of furosemide today Monitor I&O Daily weights Heart healthy diet CHF counseling Wean O2 as tolerated, goal SpO2 >92% Potassium 3.7 today. KCL 40 mEq p.o. times (2) Cardiomyopathy: Code(s): I42.9 - Cardiomyopathy, unspecified Status: Acute Assessment and Plan: EF 40% on previous echo from September. Repeat echo today showed EF 50-55%, mod-severe MR Continue losartan Continue spironolactone Could consider jardiance if affordable (3) Atrial fibrillation: Code(s): I48.91 - Unspecified atrial fibrillation Status: Chronic Assessment and Plan: Had been rate controlled, but has had some RVR in the past 24 hours, rates up to 150's. He denies any symptoms. Will transition to long-acting Toprol succinate 50 mg p.o. daily Continue Xarelto for cardioembolic risk reduction. Continue telemetry (4) Acute hypoxic respiratory failure: Code(s): J96.01 - Acute respiratory failure with hypoxia Status: Acute Assessment and Plan: Improved with furosemide and DuoNebs. Wean O2 as tolerated Subjective Date/time seen: 11/14/23 11:32 Interval history: Cardiology follow up for CHF, AF, MR Date of service 11/14/2023: Anxious to go home. No chest pain or significant shortness of breath. Breathing has significantly improved Review of Systems Review of Systems: All systems reviewed & are unremarkable except as noted in HPI and below Constitutional: Constitutional: Denies body ache(s) ENT: Denies epistaxis Cardiovascular: Cardiovascular: Denies chest pain and Denies palpitations Respiratory: Respiratory: Reports dyspnea Gastrointestinal: Gastrointestinal: Denies abdominal pain Neurologic: Denies confusion Hematologic/Lymphatic: Hematologic/Lymphatic: Denies easy bleeding Exam Narrative: Unkempt Const: General: comfortable, no acute distress, alert and awake Orientation/consciousness: patient oriented x3 HENMT: Head: normal to inspection Eyes: General: appearance normal, both eyes and all related structures Sclera: sclerae normal Neck: Neck: normal visual inspection, supple and no JVD Carotids: normal carotid upstroke Resp: Effort & Inspection: normal respiratory effort Auscultation: not clear to auscultation bilaterally, rales and wheezes Cardio: Rate: tachycardic Rhythm: abnormal rhythm irregularly irregular Heart sounds: S1 normal heart sound present, S2 normal heart sound present and Murmur heart sound present GI: Auscultation: normal bowel sounds Skin: General skin exam: normal color Neuro: General: patient oriented x3 and gait normal Extrem: General: normal to inspection Psych: Appearance: grossly normal Mental Status: mental status grossly normal Objective Data Vital Signs Vital Signs: Vital Signs - 24 hr 11/13/23 11:38 11/13/23 11:47 11/13/23 12:00 Temperature 36.2 C L Pulse Rate 99 103 H 114 H Respiratory Rate 20 Blood Pressure 119/66 Pulse Oximetry 97 Oxygen Delivery Oxygen Flow Rate 11/13/23 12:00 11/13/23 14:00 11/13/23 15:51 Temperature 36.3 C L Pulse Rate 75 80 Respiratory Rate 20 Blood Pressure 108/73 Pulse Oximetry 97 93 Oxygen Delivery Nasal Cannula Oxygen Flow Rate 1 11/13/23 16:00 11/13/23 18:21 11/13/23 16:00 Temperature 35.9 C L Pulse Rate 90 81 Respiratory Rate 18 Blood Pressure 105/60 Pulse Oximetry 93 94 Oxygen Delivery Nasal Cannula Oxygen Flow Rate 1 11/13/23 18:00 11/13/23 19:45 11/13/23 20:11 Temperature Pulse Rate 87 97 Respiratory Rate Blood Pressure Pulse Oximetry 93 Oxygen Delivery Nasal Cannula Oxygen Flow Rate 1 11/14/23 00:00 11/14/23 00:00 11/14/23 04:00 Temperature 35.9 C L 36.3 C L Pulse Rate 87 79 Respiratory Rate 18 15 Blood Pressure 113/68 140/90 Pulse Oximetry 93 93 97 Oxygen Delivery Nasal Cannula Oxygen Flow Rate 1 11/13/23 20:00 11/13/23 22:00 11/14/23 00:00 Temperature Pulse Rate 107 H 91 86 Respiratory Rate Blood Pressure Pulse Oximetry Oxygen Delivery Oxygen Flow Rate 11/14/23 02:00 11/14/23 04:00 11/14/23 05:27 Temperature Pulse Rate 77 86 88 Respiratory Rate Blood Pressure Pulse Oximetry Oxygen Delivery Oxygen Flow Rate 11/14/23 04:00 11/14/23 09:05 11/14/23 09:09 Temperature 36.6 C Pulse Rate 84 Respiratory Rate 20 Blood Pressure 119/58 L Pulse Oximetry 95 93 94 Oxygen Delivery Nasal Cannula Room Air Oxygen Flow Rate 1 11/14/23 09:17 11/14/23 08:00 11/14/23 10:00 Temperature Pulse Rate 109 H 93 122 H Respiratory Rate Blood Pressure Pulse Oximetry Oxygen Delivery Oxygen Flow Rate 11/14/23 08:00 Temperature Pulse Rate Respiratory Rate Blood Pressure Pulse Oximetry 93 Oxygen Delivery Room Air Oxygen Flow Rate Intake/Output Intake/Output: Intake & Output 11/11/23 11/12/23 11/13/23 11/14/23 23:59 23:59 23:59 23:59 Intake Total 490 1914 2180 540 Output Total 2800 2875 Balance -2310 -961 2180 540 Meds/Results Medications: Active Medications Generic Name Dose Route Start Last Admin Trade Name Freq PRN Reason Stop Dose Admin Acetaminophen 650 mg 11/11/23 12:45 Acetaminophen 325 Mg Tablet PO Q4H PRN Mild Pain (1-3) or Fever Hydrocodone Bitart/Acetaminophen 1 tab 11/11/23 10:44 Hydrocodone/Acetaminophen (*Crx) 5-325 Mg Tablet PO Q4H PRN Pain Rated 4-6 Albuterol 2 puff 11/11/23 16:58 Albuterol Sulfate (*Sp) Aerosol 1 Puff INHALATION Q6HRT PRN Shortness Of Breath Bisacodyl 10 mg 11/11/23 12:45 Bisacodyl 10 Mg Suppository RECTAL ONCE PRN Constipation Bisacodyl 5 mg 11/11/23 12:45 Bisacodyl 5 Mg Tablet Ec PO DAILY PRN Constipation Chlordiazepoxide HCl 25 mg 11/13/23 15:53 Chlordiazepoxide (*Crx) 25 Mg Capsule PO Q6HR PRN Alcohol Withdrawal Folic Acid 1 mg 11/12/23 09:00 11/14/23 09:18 Folic Acid 1 Mg Tablet PO 1 mg DAILY MIGEUL A Administration Furosemide 40 mg 11/13/23 17:00 11/14/23 09:18 Furosemide 40 Mg Tablet PO 40 mg BID MIGUEL A Administration Gabapentin 300 mg 11/12/23 09:00 11/14/23 09:18 Gabapentin 300 Mg Capsule PO 300 mg DAILY MIGUEL A Administration Haloperidol Lactate 2 mg 11/11/23 17:28 Haloperidol Lactate 5 Mg/Ml Vial IV PUSH Q2H PRN Delirium Lorazepam 2 mg 11/11/23 17:28 Lorazepam Inj (*Crx) 2 Mg/Ml Vial IV PUSH Q2H PRN CIWA > 15 Losartan Potassium 50 mg 11/12/23 09:00 11/14/23 09:18 Losartan Potassium 50 Mg Tablet PO 50 mg DAILY MIGUEL A Administration Metoprolol Tartrate 25 mg 11/13/23 11:05 11/14/23 09:17 Metoprolol Tartrate 25 Mg Tablet PO 25 mg Q12HR MIGUEL A Administration Montelukast Sodium 10 mg 11/11/23 21:00 11/13/23 20:12 Montelukast Sodium 10 Mg Tablet PO 10 mg HS MIGUEL A Administration Morphine Sulfate 2 mg 11/11/23 10:44 Morphine Sulfate (*Crx) 2 Mg/Ml Inj IV PUSH Q2H PRN Pain Rated 7-10 Nicotine 1 patch 11/11/23 20:35 11/14/23 09:17 Nicotine (*Pbkc) 21 Mg Patch TRANSDERM 1 patch DAILY MIGUEL A Administration Ondansetron HCl 4 mg 11/11/23 17:28 Ondansetron Inj 4 Mg/2 Ml Vial IV PUSH Q6H PRN Nausea And Vomiting Pantoprazole Sodium 40 mg 11/11/23 20:35 11/14/23 09:17 Pantoprazole 40 Mg Tablet PO 40 mg QAM [facility] Administration Rivaroxaban 20 mg 11/11/23 17:00 11/13/23 17:50 Rivaroxaban 20 Mg Tablet PO 20 mg DAILY@1700 [facility] Administration Spironolactone 12.5 mg 11/13/23 09:00 11/14/23 09:17 Spironolactone 12.5 Mg Tablet PO 12.5 mg QAM MIGUEL A Administration Thiamine HCl 100 mg 11/12/23 09:00 11/14/23 09:16 Thiamine Hcl 100 Mg Tablet PO 100 mg QAM [facility] Administration Radiology Results: ITS Impressions Chest X-Ray 11/11/23 08:21 IMPRESSION: 1. Likely congestive heart failure with mild pulmonary edema versus less likely pneumonia. 2. small bilateral pleural effusions. Labs Labs: Laboratory Results - last 24 hr 11/13/23 11/13/23 11/13/23 11:36 15:41 20:32 WBC RBC Hgb Hct MCV MCH MCHC RDW Plt Count MPV Sodium Potassium Chloride Carbon Dioxide Anion Gap BUN Creatinine Estim Creat Clear Calc Estimated GFR Glucose POC Capillary Glucose 90 112 H 130 H Calcium Total Bilirubin AST ALT Alkaline Phosphatase Total Protein Albumin 11/14/23 04:12 WBC 7.3 RBC 4.22 L Hgb 13.4 L Hct 42.0 MCV 99.5 MCH 31.8 MCHC 31.9 L RDW 13.6 Plt Count 300 MPV 9.8 Sodium 135 L Potassium 3.7 Chloride 96 L Carbon Dioxide 35 H Anion Gap 4 L BUN 32 H Creatinine 0.90 Estim Creat Clear Calc 72 Estimated GFR > 60 Glucose 115 H POC Capillary Glucose Calcium 9.2 Total Bilirubin 0.5 AST 24 ALT 24 Alkaline Phosphatase 73 Total Protein 7.0 Albumin 3.7
[2023-11-14] MEDS: METOPROLOL SUCCINATE EXT REL 50 MG TABCR PO (12:20)
[2023-11-14] MEDS: POTASSIUM CHLORIDE 20 MEQ ER TABLET 40 MEQ PO (12:21)
--- NOTE | 2023-11-14 14:12 | PM.IMPN ---
Progress Note: A&P Assessment and Plan (1) Acute hypoxic respiratory failure: Code(s): J96.01 - Acute respiratory failure with hypoxia Status: Acute Assessment and Plan: Patient presents with SOB and found to be hypoxic. CXR showing pulmonary edema vs PNA. Likely hypoxia secondary to new onset CHF Lasix IV started Patient started on 4L nasal cannula but weaned to room air (but now back to 1L) Wean O2 for an oxygen saturation of greater than 92% (2) New onset of congestive heart failure: Code(s): I50.9 - Heart failure, unspecified Status: Acute Assessment and Plan: Patient presented with shortness of breath and orthopnea that has been worsening over the last week. He was found to be hypoxic and CXR consistent with pulmonary edema. BNP 6560 EKG showing AFib with RVR (100) with baseline artifact. Echo EF 50-55%, normal RV fxn, biatrial enlargement, mod-severe MR and pHTN (45) Lasix started with good UOP. [place] has acute diastolic CHF. CHF related to valvular disease? Related to uncontrolled AFib? Heart healthy diet and dietitian consulted Strict I/Os. Daily weights. Cardiology consulted and appreciate their input Lasix changed to oral route. Wean O2 as tolerated (3) Atrial fibrillation: Code(s): I48.91 - Unspecified atrial fibrillation Status: Chronic Assessment and Plan: Patient with known chronic AFib. EKG showing AFib with RVR, rate of 100 Home meds clarified: he is on Metoprolol succinate 100mg daily and Digoxin 0.125mg daily at home On Xarelto which was continued Metoprolol added back at lower dose. HR higher today probably related to patient being more active. Follow for now but if persistent, will advance metoprolol to his home dose of 100mg if BP okay (4) Mitral regurgitation: Code(s): I34.0 - Nonrheumatic mitral (valve) insufficiency Status: Acute Assessment and Plan: Patient found to have moderate to severe MR. Could be playing a part in his CHF. Will need to be followed for this with serial checks. (5) COPD (chronic obstructive pulmonary disease): Code(s): J44.9 - Chronic obstructive pulmonary disease, unspecified Status: Chronic Assessment and Plan: Patient with COPD but not on any home O2 or CPAP Albuterol inhaler ordered PRN for shortness of breath No wheezing to suggest acute flare (6) Alcohol abuse: Code(s): F10.10 - Alcohol abuse, uncomplicated Status: Acute Assessment and Plan: Patient drinks about 175 ml of whiskey a day and has recently quit Patient has no history of withdrawal however he had a recent admission the beginning of October for alcohol intoxication and fentanyl abuse. He was at [facility]. States that he did have a drink since discharge then that he did report to us. Vitamin B12 and folic acid were normal PAWSS score >5 noted by bedside nursing. CIWA score = 0 Continue thiamine and folic acid Librium scheduled but now changed to prn Patient was educated about the benefits of abstaining from alcohol Monitor (7) Opioid abuse: Code(s): F11.10 - Opioid abuse, uncomplicated Status: Acute Assessment and Plan: Recent admission at [facility] for alcohol intoxication and fentanyl overdose Currently on Suboxone however this is non formulary here and patient did not bring along with him Patient was educated about the benefits of abstaining from drug use Home with Narcan Rx Plan DVT prophylaxis - Xarelto Code status - full Subjective Date/time seen: 11/14/23 14:12 Interval history: 63yo male with COPD, alcoholism and AFib who presented to the emergency for evaluation of his shortness of breath.?? Feels weak. hs had weakness in the legs prior to admission. [place] related to recent prolonged hospitalization. Has been up walking to the bathroom her No CP or SOB. +RIVERA. Off o2 today earlier today. Exam Narrative: AF 97.8 107/44 100 20 96% 1L Gen - NARD Chest - scattered expiratory rhonchi o/w clear. nml RR CV - irregularly irregular. Tele showing AFib with elevated heart rate Abd - Soft, NT/ND, Positive BS Ext - No pedal edema Psych - Nml mood and affect. Skin - Warm and dry Objective Data Vital Signs Vital Signs: Vital Signs - 24 hr 11/13/23 15:51 11/13/23 16:00 11/13/23 18:21 Temperature 97.3 F L 96.6 F L Pulse Rate 80 90 Respiratory Rate 20 18 Blood Pressure 108/73 105/60 Pulse Oximetry 93 93 94 Oxygen Delivery Nasal Cannula Oxygen Flow Rate 1 11/13/23 16:00 11/13/23 18:00 11/13/23 19:45 Temperature Pulse Rate 81 87 Respiratory Rate Blood Pressure Pulse Oximetry 93 Oxygen Delivery Nasal Cannula Oxygen Flow Rate 1 11/13/23 20:11 11/14/23 00:00 11/14/23 00:00 Temperature 96.7 F L Pulse Rate 97 87 Respiratory Rate 18 Blood Pressure 113/68 Pulse Oximetry 93 93 Oxygen Delivery Nasal Cannula Oxygen Flow Rate 1 11/14/23 04:00 11/13/23 20:00 11/13/23 22:00 Temperature 97.3 F L Pulse Rate 79 107 H 91 Respiratory Rate 15 Blood Pressure 140/90 Pulse Oximetry 97 Oxygen Delivery Oxygen Flow Rate 11/14/23 00:00 11/14/23 02:00 11/14/23 04:00 Temperature Pulse Rate 86 77 86 Respiratory Rate Blood Pressure Pulse Oximetry Oxygen Delivery Oxygen Flow Rate 11/14/23 05:27 11/14/23 04:00 11/14/23 09:05 Temperature Pulse Rate 88 Respiratory Rate Blood Pressure Pulse Oximetry 95 93 Oxygen Delivery Nasal Cannula Room Air Oxygen Flow Rate 1 11/14/23 09:09 11/14/23 09:17 11/14/23 08:00 Temperature 97.9 F Pulse Rate 84 109 H 93 Respiratory Rate 20 Blood Pressure 119/58 L Pulse Oximetry 94 Oxygen Delivery Oxygen Flow Rate 11/14/23 10:00 11/14/23 08:00 11/14/23 12:00 Temperature 97.8 F Pulse Rate 122 H 64 Respiratory Rate 20 Blood Pressure 107/44 L Pulse Oximetry 93 96 Oxygen Delivery Room Air Oxygen Flow Rate 11/14/23 12:20 11/14/23 12:00 11/14/23 12:00 Temperature Pulse Rate 100 101 H Respiratory Rate Blood Pressure Pulse Oximetry 96 Oxygen Delivery Nasal Cannula Oxygen Flow Rate 1 Intake/Output Intake/Output: Intake & Output 11/11/23 11/12/23 11/13/23 11/14/23 23:59 23:59 23:59 23:59 Intake Total 376 2004 2180 540 Output Total 9079 8773 Balance -3831 -961 2180 540 Meds/Results Medications: Active Medications Generic Name Dose Route Start Last Admin Trade Name Freq PRN Reason Stop Dose Admin Acetaminophen 650 mg 11/11/23 12:45 Acetaminophen 325 Mg Tablet PO Q4H PRN Mild Pain (1-3) or Fever Hydrocodone Bitart/Acetaminophen 1 tab 11/11/23 10:44 Hydrocodone/Acetaminophen (*Crx) 5-325 Mg Tablet PO Q4H PRN Pain Rated 4-6 Albuterol 2 puff 11/11/23 16:58 Albuterol Sulfate (*Sp) Aerosol 1 Puff INHALATION Q6HRT PRN Shortness Of Breath Bisacodyl 10 mg 11/11/23 12:45 Bisacodyl 10 Mg Suppository RECTAL ONCE PRN Constipation Bisacodyl 5 mg 11/11/23 12:45 Bisacodyl 5 Mg Tablet Ec PO DAILY PRN Constipation Chlordiazepoxide HCl 25 mg 11/13/23 15:53 Chlordiazepoxide (*Crx) 25 Mg Capsule PO Q6HR PRN Alcohol Withdrawal Folic Acid 1 mg 11/12/23 09:00 11/14/23 09:18 Folic Acid 1 Mg Tablet PO 1 mg DAILY MIGUEL A Administration Furosemide 40 mg 11/13/23 17:00 11/14/23 09:18 Furosemide 40 Mg Tablet PO 40 mg BID MIGUEL A Administration Gabapentin 300 mg 11/12/23 09:00 11/14/23 09:18 Gabapentin 300 Mg Capsule PO 300 mg DAILY MIGUEL A Administration Haloperidol Lactate 2 mg 11/11/23 17:28 Haloperidol Lactate 5 Mg/Ml Vial IV PUSH Q2H PRN Delirium Lorazepam 2 mg 11/11/23 17:28 Lorazepam Inj (*Crx) 2 Mg/Ml Vial IV PUSH Q2H PRN CIWA > 15 Losartan Potassium 50 mg 11/12/23 09:00 11/14/23 09:18 Losartan Potassium 50 Mg Tablet PO 50 mg DAILY MIGUEL A Administration Metoprolol Succinate 50 mg 11/14/23 11:40 11/14/23 12:20 Metoprolol Succinate Ext Rel 50 Mg Tabcr PO 50 mg QAM MIGUEL A Administration Montelukast Sodium 10 mg 11/11/23 21:00 11/13/23 20:12 Montelukast Sodium 10 Mg Tablet PO 10 mg HS MIGUEL A Administration Morphine Sulfate 2 mg 11/11/23 10:44 Morphine Sulfate (*Crx) 2 Mg/Ml Inj IV PUSH Q2H PRN Pain Rated 7-10 Nicotine 1 patch 11/11/23 20:35 11/14/23 09:17 Nicotine (*Pbkc) 21 Mg Patch TRANSDERM 1 patch DAILY MIGUEL A Administration Ondansetron HCl 4 mg 11/11/23 17:28 Ondansetron Inj 4 Mg/2 Ml Vial IV PUSH Q6H PRN Nausea And Vomiting Pantoprazole Sodium 40 mg 11/11/23 20:35 11/14/23 09:17 Pantoprazole 40 Mg Tablet PO 40 mg QAM [facility] Administration Rivaroxaban 20 mg 11/11/23 17:00 11/13/23 17:50 Rivaroxaban 20 Mg Tablet PO 20 mg DAILY@1700 [facility] Administration Spironolactone 12.5 mg 11/13/23 09:00 11/14/23 09:17 Spironolactone 12.5 Mg Tablet PO 12.5 mg QAM [facility] Administration Thiamine HCl 100 mg 11/12/23 09:00 11/14/23 09:16 Thiamine Hcl 100 Mg Tablet [facility] Radiology Results: ITS Impressions Chest X-Ray 11/11/23 08:21 IMPRESSION: 1. Likely congestive heart failure with mild pulmonary edema versus less likely pneumonia. 2. small bilateral pleural effusions. Labs Labs: Laboratory Results - last 24 hr 11/13/23 11/13/23 11/14/23 15:41 20:32 04:12 WBC 7.3 RBC 4.22 L Hgb 13.4 L Hct 42.0 MCV 99.5 MCH 31.8 MCHC 31.9 L RDW 13.6 Plt Count 300 MPV 9.8 Sodium 135 L Potassium 3.7 Chloride 96 L Carbon Dioxide 35 H Anion Gap 4 L BUN 32 H Creatinine 0.90 Estim Creat Clear Calc 72 Estimated GFR > 60 Glucose 115 H POC Capillary Glucose 112 H 130 H Calcium 9.2 Total Bilirubin 0.5 AST 24 ALT 24 Alkaline Phosphatase 73 Total Protein 7.0 Albumin 3.7
[2023-11-14] MEDS: RIVAROXABAN 20 MG TABLET PO (17:31)
[2023-11-14] MEDS: MONTELUKAST SODIUM 10 MG TABLET PO (20:14)
[2023-11-15] VITALS (9 sets, daily range): BP systolic 105–121; BP diastolic 60–89; PULSE 82–97; RESP 18–19; TEMP 36.1–36.9; O2SAT 92–98
[2023-11-15 04:33] LABS: Hematocrit 38.5 % (42.0-52.0); Hemoglobin 12.3 g/dL (14.0-18.0); Mean Corpuscular HGB Conc 31.9 g/dl (32-36); Mean Corpuscular Hemoglobin 31.3 pg (26-34); Mean Platelet Volume 9.1 fl (7.4-10.4); Platelet Count Result 274 k/mm3 (150-375); Red Blood Count 3.93 M/mm3 (4.6-6.20); Red Cell Distribution Width 13.4 % (11.5-14.5); White Blood Count 7.7 K/mm3 (4.5-10.0)
[2023-11-15 04:43] LABS: Alanine Aminotransferase 20 U/L (6-50); Albumin Level 3.7 g/dL (3.5-5.1); Alkaline Phosphatase 69 U/L (38-126); Anion Gap 6 mmol/L (8-16); Aspartate Amino Transferase 19 U/L (17-59); Bilirubin,Total 0.5 mg/dL (0.2-1.3); Blood Urea Nitrogen 26 mg/dL (9-20); Calcium 9.3 mg/dL (8.4-10.2); Carbon Dioxide 31 mmol/L (22-30); Chloride 99 mmol/L (98-107); Estimated CRCL calculation 71 ml/min; Estimated Glomerular Filt Rate > 60; Glucose 126 mg/dL (65-110); Potassium 4.1 mmol/L (3.4-5.0); Sodium 136 mmol/L (137-145)
[2023-11-15] MEDS: PANTOPRAZOLE 40 MG TABLET PO (09:30)
[2023-11-15] MEDS: GABAPENTIN 300 MG CAPSULE PO (09:30)
[2023-11-15] MEDS: METOPROLOL SUCCINATE EXT REL 50 MG TABCR PO (09:30)
[2023-11-15] MEDS: FOLIC ACID 1 MG TABLET PO (09:30)
[2023-11-15] MEDS: NICOTINE (*PBKC) 21 MG PATCH 1 PATCH TRANSDERM (09:30)
[2023-11-15] MEDS: THIAMINE HCL 100 MG TABLET PO (09:30)
[2023-11-15] MEDS: LOSARTAN POTASSIUM 50 MG TABLET PO (09:30)
[2023-11-15] MEDS: SPIRONOLACTONE 12.5 MG TABLET PO (09:30)
--- NOTE | 2023-11-15 09:53 | PM.PNCARD ---
Progress Note: A&P Assessment and Plan (1) New onset of congestive heart failure: Code(s): I50.9 - Heart failure, unspecified Status: Acute Assessment and Plan: Secondary to above. Will reduce his furosemide down to 40 mg once daily. Continue metoprolol at current dose. Continue losartan. (2) Cardiomyopathy: Code(s): I42.9 - Cardiomyopathy, unspecified Status: Acute Assessment and Plan: EF 40% on previous echo from September. Repeat echo today showed EF 50-55%, mod-severe MR Continue losartan Continue spironolactone Could consider jardiance if affordable Continue meds as detailed above (3) Atrial fibrillation: Code(s): I48.91 - Unspecified atrial fibrillation Status: Chronic Assessment and Plan: Had been rate controlled, but has had some RVR in the past 24 hours, rates up to 150's. He denies any symptoms. Continue Toprol XL Continue Xarelto for cardioembolic risk reduction. Continue telemetry (4) Acute hypoxic respiratory failure: Code(s): J96.01 - Acute respiratory failure with hypoxia Status: Acute Assessment and Plan: Improved with furosemide and DuoNebs. Wean O2 as tolerated Subjective Date/time seen: 11/15/23 09:53 Interval history: Cardiology follow up for CHF, AF, MR Date of service 11/14/2023: Anxious to go home. No chest pain or significant shortness of breath. Breathing has significantly improved Date of service 11/15/2023: He feels okay today. No chest pain. Teen breathing better. No swelling. Review of Systems Review of Systems: All systems reviewed & are unremarkable except as noted in HPI and below Constitutional: Constitutional: Denies body ache(s) ENT: Denies epistaxis Cardiovascular: Cardiovascular: Denies chest pain, Denies palpitations and Reports dyspnea Respiratory: Respiratory: Reports dyspnea Gastrointestinal: Gastrointestinal: Denies abdominal pain Neurologic: Denies confusion Psychiatric: Psychiatric: Denies confusion Endocrine: Endocrine: Denies palpitations Hematologic/Lymphatic: Hematologic/Lymphatic: Denies easy bleeding Exam Narrative: Unkempt Const: General: comfortable, no acute distress, alert and awake; No confusion Orientation/consciousness: patient oriented x3 and No confusion HENMT: Head: normal to inspection Eyes: General: appearance normal, both eyes and all related structures Sclera: sclerae normal Neck: Neck: normal visual inspection, supple and no JVD Carotids: normal carotid upstroke Resp: Effort & Inspection: normal respiratory effort Auscultation: not clear to auscultation bilaterally and wheezes Cardio: Rate: regular rate Rhythm: abnormal rhythm irregularly irregular Heart sounds: S1 normal heart sound present, S2 normal heart sound present and Murmur heart sound present GI: Auscultation: normal bowel sounds Skin: General skin exam: normal color Neuro: General: patient oriented x3, gait normal and No confusion Speech: normal speech Extrem: General: normal to inspection Psych: Appearance: grossly normal Mental Status: mental status grossly normal Objective Data Vital Signs Vital Signs: Vital Signs - 24 hr 11/14/23 10:00 11/14/23 12:00 11/14/23 12:20 Temperature 36.6 C Pulse Rate 122 H 64 100 Respiratory Rate 20 Blood Pressure 107/44 L Pulse Oximetry 96 Oxygen Delivery Oxygen Flow Rate Fraction of Inspired Oxygen 11/14/23 12:00 11/14/23 12:00 11/14/23 14:01 Temperature Pulse Rate 101 H Respiratory Rate Blood Pressure Pulse Oximetry 96 Oxygen Delivery Nasal Cannula Room Air Oxygen Flow Rate 1 Fraction of Inspired Oxygen 11/14/23 15:18 11/14/23 14:00 11/14/23 17:30 Temperature Pulse Rate 107 H Respiratory Rate Blood Pressure 102/68 Pulse Oximetry Oxygen Delivery Room Air Oxygen Flow Rate Fraction of Inspired Oxygen 11/14/23 16:00 11/14/23 18:00 11/14/23 19:23 Temperature 36.5 C Pulse Rate 92 93 96 Respiratory Rate 28 H Blood Pressure 98/57 L Pulse Oximetry 94 Oxygen Delivery Oxygen Flow Rate Fraction of Inspired Oxygen 11/14/23 16:00 11/14/23 20:00 11/14/23 22:00 Temperature Pulse Rate 98 92 Respiratory Rate Blood Pressure Pulse Oximetry 96 Oxygen Delivery Nasal Cannula Oxygen Flow Rate 1 Fraction of Inspired Oxygen 11/15/23 00:48 11/15/23 00:00 11/15/23 02:00 Temperature 36.5 C Pulse Rate 91 97 92 Respiratory Rate 18 Blood Pressure 105/60 Pulse Oximetry 98 Oxygen Delivery Oxygen Flow Rate Fraction of Inspired Oxygen 11/15/23 04:00 11/14/23 21:49 11/15/23 06:00 Temperature Pulse Rate 82 84 Respiratory Rate Blood Pressure Pulse Oximetry 95 Oxygen Delivery Nasal Cannula Oxygen Flow Rate 1 Fraction of Inspired Oxygen 11/15/23 04:00 11/15/23 07:24 11/15/23 08:44 Temperature 36.1 C L 36.9 C Pulse Rate 83 85 Respiratory Rate 18 19 Blood Pressure 111/75 121/89 Pulse Oximetry 98 95 92 Oxygen Delivery Room Air Oxygen Flow Rate Fraction of Inspired Oxygen 21 Intake/Output Intake/Output: Intake & Output 11/12/23 11/13/23 11/14/23 11/15/23 23:59 23:59 23:59 23:59 Intake Total 1914 2180 1320 Output Total 2875 700 1500 Balance -961 2180 620 -1500 Meds/Results Medications: Active Medications Generic Name Dose Route Start Last Admin Trade Name Freq PRN Reason Stop Dose Admin Acetaminophen 650 mg 11/11/23 12:45 Acetaminophen 325 Mg Tablet PO Q4H PRN Mild Pain (1-3) or Fever Hydrocodone Bitart/Acetaminophen 1 tab 11/11/23 10:44 Hydrocodone/Acetaminophen (*Crx) 5-325 Mg Tablet PO Q4H PRN Pain Rated 4-6 Albuterol 2 puff 11/11/23 16:58 Albuterol Sulfate (*Sp) Aerosol 1 Puff INHALATION Q6HRT PRN Shortness Of Breath Bisacodyl 10 mg 11/11/23 12:45 Bisacodyl 10 Mg Suppository RECTAL ONCE PRN Constipation Bisacodyl 5 mg 11/11/23 12:45 Bisacodyl 5 Mg Tablet Ec PO DAILY PRN Constipation Chlordiazepoxide HCl 25 mg 11/13/23 15:53 Chlordiazepoxide (*Crx) 25 Mg Capsule PO Q6HR PRN Alcohol Withdrawal Folic Acid 1 mg 11/12/23 09:00 11/14/23 09:18 Folic Acid 1 Mg Tablet PO 1 mg DAILY MIGUEL A Administration Furosemide 40 mg 11/13/23 17:00 11/14/23 17:31 Furosemide 40 Mg Tablet PO 40 mg BID MIGUEL A Administration Gabapentin 300 mg 11/12/23 09:00 11/14/23 09:18 Gabapentin 300 Mg Capsule PO 300 mg DAILY MIGUEL A Administration Haloperidol Lactate 2 mg 11/11/23 17:28 Haloperidol Lactate 5 Mg/Ml Vial IV PUSH Q2H PRN Delirium Lorazepam 2 mg 11/11/23 17:28 Lorazepam Inj (*Crx) 2 Mg/Ml Vial IV PUSH Q2H PRN CIWA > 15 Losartan Potassium 50 mg 11/12/23 09:00 11/14/23 09:18 Losartan Potassium 50 Mg Tablet PO 50 mg DAILY MIGUEL A Administration Metoprolol Succinate 50 mg 11/14/23 11:40 11/14/23 12:20 Metoprolol Succinate Ext Rel 50 Mg Tabcr PO 50 mg QAM MIGUEL A Administration Montelukast Sodium 10 mg 11/11/23 21:00 11/14/23 20:14 Montelukast Sodium 10 Mg Tablet PO 10 mg HS MIGUEL A Administration Morphine Sulfate 2 mg 11/11/23 10:44 Morphine Sulfate (*Crx) 2 Mg/Ml Inj IV PUSH Q2H PRN Pain Rated 7-10 Nicotine 1 patch 11/11/23 20:35 11/14/23 09:17 Nicotine (*Pbkc) 21 Mg Patch TRANSDERM 1 patch DAILY [facility] Administration Ondansetron HCl 4 mg 11/11/23 17:28 Ondansetron Inj 4 Mg/2 Ml Vial IV PUSH Q6H PRN Nausea And Vomiting Pantoprazole Sodium 40 mg 11/11/23 20:35 11/14/23 09:17 Pantoprazole 40 Mg Tablet PO 40 mg QAM [facility] Administration Rivaroxaban 20 mg 11/11/23 17:00 11/14/23 17:31 Rivaroxaban 20 Mg Tablet PO 20 mg DAILY@1700 [facility] Administration Spironolactone 12.5 mg 11/13/23 09:00 11/14/23 09:17 Spironolactone 12.5 Mg Tablet PO 12.5 mg QAM [facility] Administration Thiamine HCl 100 mg 11/12/23 09:00 11/14/23 09:16 Thiamine Hcl 100 Mg Tablet PO 100 mg QAM [facility] Administration Radiology Results: ITS Impressions Chest X-Ray 11/11/23 08:21 IMPRESSION: 1. Likely congestive heart failure with mild pulmonary edema versus less likely pneumonia. 2. small bilateral pleural effusions. Labs Labs: Laboratory Results - last 24 hr 11/15/23 04:20 WBC 7.7 RBC 3.93 L Hgb 12.3 L Hct 38.5 L MCV 98.0 MCH 31.3 MCHC 31.9 L RDW 13.4 Plt Count 274 MPV 9.1 Sodium 136 L Potassium 4.1 Chloride 99 Carbon Dioxide 31 H Anion Gap 6 L BUN 26 H Creatinine 0.90 Estim Creat Clear Calc 71 Estimated GFR > 60 Glucose 126 H Calcium 9.3 Total Bilirubin 0.5 AST 19 ALT 20 Alkaline Phosphatase 69 Total Protein 7.0 Albumin 3.7
--- NOTE | 2023-11-15 10:31 | P.DS_ITS ---
DS: Admitting Diagnosis Discharge Date 11/15/23 Admitting Diagnosis Shortness of breath DS: Discharge Diagnosis Discharge Diagnosis (1) Acute hypoxic respiratory failure: Code(s): J96.01 - Acute respiratory failure with hypoxia Status: Acute (2) New onset of congestive heart failure: Code(s): I50.9 - Heart failure, unspecified Status: Acute (3) Atrial fibrillation: Code(s): I48.91 - Unspecified atrial fibrillation Status: Chronic (4) Mitral regurgitation: Code(s): I34.0 - Nonrheumatic mitral (valve) insufficiency Status: Acute (5) COPD (chronic obstructive pulmonary disease): Code(s): J44.9 - Chronic obstructive pulmonary disease, unspecified Status: Chronic (6) Alcohol abuse: Code(s): F10.10 - Alcohol abuse, uncomplicated Status: Acute (7) Opioid abuse: Code(s): F11.10 - Opioid abuse, uncomplicated Status: Acute DS: Summary Hospital Course Reason for hospitalization: 63yo male with COPD, alcoholism and AFib who presented to the emergency for evaluation of his shortness of breath. Please see H&P for details. Hospital Course: Patient presents with SOB and orthopnea and found to be hypoxic. CXR showing pulmonary edema vs PNA. BNP 6560. Likely hypoxia secondary to new onset CHF. Lasix IV started. Patient was started on 4L nasal cannula but weaned to room air. EKG showing AFib with RVR (100) with baseline artifact. Echo EF 50-55%, normal RV fxn, biatrial enlargement, mod-severe MR and pHTN (45). [place] he has? acute diastolic CHF.?CHF related to valvular disease? Related to uncontrolled AFib? Heart healthy diet and dietitian consulted. We did strict I/Os. Daily weights. Cardiology consulted and appreciate their input. Patient with known chronic AFib. EKG showing AFib with RVR, rate of 100. He was on Digoxin and Metoprolol at home. On Xarelto at home which was continued. Metoprolol added back at lower dose. Other medications started for his CHF. Patient found to have moderate to severe MR. Could be playing a part in his CHF. He was informed of this. He will need to be followed for this with serial checks. Patient with COPD but not on home O2 or NIV. Albuterol inhaler ordered PRN for shortness of breath. No wheezing to suggest acute flare. Patient drinks about 175 ml of whiskey a day and has recently quit.Patient has no history of withdrawal however he had a recent admission the beginning of October for alcohol intoxication and fentanyl abuse.? He was at [facility].? States that he did drink alcohol since discharge that he did report to us. Vitamin B12 and folic acid were normal. PAWSS score >5 noted by bedside nursing.? CIWA score = 0. Treated with thiamine and folic acid. He was started on Librium scheduled but then changed to prn. Patient was educated about the benefits of abstaining from alcohol. Recent had a recent admission at [facility] for alcohol intoxication and fentanyl abuse. Currently on Suboxone however this is non formulary here and patient did not bring it along with him (later discovered that wojciech may be out of this medication altogether). Patient was educated about the benefits of abstaining from drug use. Home with Narcan Rx. He overall did well and was able to be discharged home on 11/15/23. Status at Discharge Cognitive/behavioral status at discharge: stable Time Spent with Patient Time attestation: Total time spent providing and/or coordinating discharge services: 35 minutes Time spent: Greater than 30 minutes Specific discharge activities: patient education Exam Narrative: AF 98.5 121/89 85 19 92% ra Gen - NARD Chest - CTA bilaterally, nml RR CV - irregularly irregular. Tele showing AFib with controlled rate Abd - Soft, NT/ND, Positive BS Ext - No pedal edema Psych - Nml mood and affect. Skin - Warm and dry DS: Data Data Completed and Pending Labs on day of discharge: Labs from last 24 hours 11/15/23 04:20 WBC 7.7 RBC 3.93 L Hgb 12.3 L Hct 38.5 L MCV 98.0 MCH 31.3 MCHC 31.9 L RDW 13.4 Plt Count 274 MPV 9.1 Sodium 136 L Potassium 4.1 Chloride 99 Carbon Dioxide 31 H Anion Gap 6 L BUN 26 H Creatinine 0.90 Estim Creat Clear Calc 71 Estimated GFR > 60 Glucose 126 H Calcium 9.3 Total Bilirubin 0.5 AST 19 ALT 20 Alkaline Phosphatase 69 Total Protein 7.0 Albumin 3.7 Discharge Plan Discharge Attending physician on discharge: Toni Pardo Consulting providers: Nella Barillas Discharging Clinician: Toni Pardo Anticipated Discharge Date/Time: 11/15/23 10:41 Patient Disposition: Home, Self-Care Activity: as tolerated Diet: heart healthy Discharge Instructions: Take precautions to avoid falls. Rise slowly from a lying or sitting position. Pause before standing or walking. Check daily morning weights after voiding. Call your doctor if you gain more than 3 lb in 2 days or 5 lb in 1 week. Contact your doctor or call 911 and come to the Emergency Room if you have fevers, lightheadedness with standing or other worrisome symptoms. Avoid NSAIDs (ibuprofen, naproxen, Aleve). Tylenol is safe to take. Follow-up with your primary care provider in 1-2 weeks. Please call for appointment. Follow-up with Cardiology i 2-3 weeks. Please call for an appointment. Thank you for using [facility] for your health care needs. Patient Instructions: Antibiotic Form, Rivaroxaban (By mouth) Stand Alone Forms: General Discharge Information Follow-up/Referrals: UNKNOWN,DOCTOR [Primary Care Provider] - Call for Appointment Nella Barillas MD [Physician] - Call for Appointment Discharge Medications: New thiamine HCl (vitamin B1) [Vitamin B-1] 100 mg Tablet 100 mg PO QAM Qty: 30 0RF metoprolol succinate 50 mg Tablet Extended Release 24 Hr 50 mg PO QAM Qty: 30 1RF furosemide 40 mg Tablet 40 mg PO DAILY Qty: 30 1RF folic acid 1 mg Tablet 1 mg PO DAILY Qty: 30 0RF naloxone [Narcan] 4 mg/actuation spray,non-aerosol 4 mg intranasal Q2M PRN (Reason: opioid overdose) Qty: 2 0RF Rx Instructions: spray 1 dose into ONE nostril; alternate nostrils w each dose until help arrives spironolactone 25 mg tablet 12.5 mg PO DAILY Qty: 30 1RF Continued losartan 50 mg tablet 50 mg PO DAILY gabapentin 300 mg capsule 300 mg PO DAILY albuterol sulfate 90 mcg/actuation HFA aerosol inhaler 2 puff INHALATION DAILY buprenorphine-naloxone 8-2 mg tablet, sublingual 1 tablet SUBLINGUAL DAILY Xarelto 20 mg tablet 20 mg PO DAILY Anoro Ellipta 62.5-25 mcg/actuation blister with device 1 inh INHALATION DAILY Date of admission: 11/12/23 16:21 Primary Care Provider: UNKNOWN,DOCTOR Admitting Provider: Ralph Velasquez Attending physician on admission: Ralph Velasquez Condition: Stable
== END 2023-11-15 12:29 | disposition home or self-care (01) | DRG 194 ==
LOC: ANHED 07:50 → ANHIMU 11:18
PROVIDERS: Nurse Practitioner Acute Care; Admitting Provider Family Medicine; Emergency Provider Emergency Medicine; Visit Provider Internal Medicine
DX: I50.31 Acute diastolic (congestive) heart failure (principal); I48.20 Chronic atrial fibrillation, unspecified; I34.0 Nonrheumatic mitral (valve) insufficiency; I42.9 Cardiomyopathy, unspecified; J44.9 Chronic obstructive pulmonary disease, unspecified; F10.10 Alcohol abuse, uncomplicated; F11.10 Opioid abuse, uncomplicated
CPT/HCPCS: 36415; 71046; 80053; 82607; 82746; 82948; 83735; 83880; 85025; 85027; 93005; 94640; 96374; 96375; 97161; 97165; 99291; A9270; C8929; G0378; G0379; J1940; Q9957

== ENCOUNTER 2024-05-12 17:32 | Emergency (ER) | payer OTHER, SELFPAY ==
--- NOTE | ~2024-05-12 | XR_ITS ---
EXAMINATION: XR finger 4th LT min 2V DATE: 05/12/2024 18:05 INDICATION: Fracture of left hand fourth digit. TECHNIQUE: 3 views of left hand fourth digit were obtained. COMPARISON: None. FINDINGS: There is an open comminuted fracture of tuft of fourth distal phalanx. The main distal frac ture fragment demonstrates 1 mm distraction. 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 There are punctate periarticular calcificati ons at fourth proximal and distal interphalangeal joints. IMPRESSION: 1. Open comminuted fracture of tuft of fourth distal phalanx. Reviewed, dictated and finalized at location A.
[2024-05-12 17:43] VITALS: BP 151/110; PULSE 91; RESP 18; TEMP 36.3; O2SAT 96
--- NOTE | 2024-05-12 17:58 | ED.UPPEXIN ---
HPI - Extremity Injury (Upper) General Chief Complaint: Extremity Injury, Upper Stated Complaint: cut finger Time Seen by Provider: 05/12/24 17:58 Source: patient Mode of arrival: ambulatory Limitations: no limitations History of Present Illness HPI narrative: Patient came by private car complaining of electric fan injury to left ring finger prior to arrival. He denies other injuries Related Data Home Medications Medication Instructions Recorded Confirmed albuterol sulfate 90 mcg/actuation 2 puff inhalation DAILY 11/11/23 11/11/23 aerosol inhaler buprenorphine 8 mg-naloxone 2 mg 1 tablet sublingual DAILY 11/11/23 11/11/23 sublingual tablet gabapentin 300 mg capsule 300 mg PO DAILY 11/11/23 11/11/23 losartan 50 mg tablet 50 mg PO DAILY 11/11/23 11/11/23 rivaroxaban 20 mg tablet (Xarelto) 20 mg PO DAILY 11/11/23 11/11/23 umeclidinium 62.5 mcg-vilanterol 1 inh inhalation DAILY 11/11/23 11/11/23 25 mcg/actuation powdr for inhalation (Anoro Ellipta) Allergies Allergy/AdvReac Type Severity Reaction Status Date / Time latex Allergy Unknown Hives Verified 05/12/24 17:43 Review of Systems Review of Systems: All systems reviewed & are unremarkable except as noted in HPI and below PMFSH Past Medical History Medical History Alcohol abuse Atrial fibrillation COPD (chronic obstructive pulmonary disease) Mitral regurgitation Opioid abuse Surgical History Surgical History History of hernia surgery Family History Family History Father Diabetes mellitus Hypertension Acute myocardial infarction Sibling Family history of alcoholism Mother Dementia Social History Social History Smoking status: Current some day smoker Alcohol intake: former Substance use: former Substance use type: painkillers Other substance usage details: October 24 was discharge date from hospital for alcoholism. 2 drinks since Do You Feel Safe in your Home?: Yes Lack of Transportation: YES Lack of Food: Never True Current Housing: I Have Housing Concerned About Future Housing: No Difficulty Paying Gas/Electric Bills: No Difficulty Paying for Meds: No Currently Unemployed: No Education: High School Diploma/GED Difficulty w/ Childcare or Family Care: No Spiritual care concerns: No Exam Narrative: General appearance: Well-developed, well-nourished Skin: Normal color Head: Normocephalic, nontraumatic Vascular: Normal peripheral pulses, normal capillary refill. Musculoskeletal: Left ring finger showed laceration at the tip almost old way around. Neurologic: Alert and oriented ?3, Course Consultations Consultation #1: Dr. Marino, hand surgeon at [facility] Date: 05/12/24 Consultation #2: Dr. Cantu, ED at [facility] who accepted patient transfer Date: 05/12/24 Vital Signs Vital signs: Vital Signs Temperature 36.3 C L 05/12/24 17:43 Pulse Rate 91 05/12/24 17:43 Respiratory Rate 18 05/12/24 17:43 Blood Pressure 151/110 H 05/12/24 17:43 Pulse Oximetry 96 05/12/24 17:43 Oxygen Delivery Room Air 05/12/24 17:43 Temperature 36.3 C L 05/12/24 17:43 Pulse Rate 91 05/12/24 17:43 Respiratory Rate 18 05/12/24 17:43 Blood Pressure 151/110 H 05/12/24 17:43 Pulse Oximetry 96 05/12/24 17:43 Oxygen Delivery Room Air 05/12/24 17:43 MDM - Extremity Injury (Upper) MDM Narrative Medical decision making narrative: Left ring finger injury by an electric fan, Unknown last tetanus shot X-ray showed comminuted fracture of the tuft, The ED patient received Dilaudid, Zofran,
[2024-05-12] MEDS: ceFAZolin SODIUM 1 GM VIAL 2 GM IV PUSH (18:55)
[2024-05-12] MEDS: ONDANSETRON INJ 4 MG/2 ML VIAL IV PUSH (18:55)
[2024-05-12] MEDS: TETANUS,DIPHTHERIA,AC PERTUSSIS ADULT (0.5 ML) BOOSTRIX IM (18:55)
[2024-05-12] MEDS: WATER, STERILE FOR INJECTION 10 ML VIAL XX (18:55)
[2024-05-12] MEDS: HYDROmorphone HCL INJ (*CRX) 1 MG/ML SYR 0.5 MG IV PUSH (19:00)
[2024-05-12 19:56] VITALS: BP 153/99; PULSE 73; RESP 16; TEMP 36.7; O2SAT 95
== END 2024-05-12 20:00 | disposition short-term general hospital (02) ==
PROVIDERS: Emergency Provider Emergency Medicine; PCP Hospitalist
DX: S62.635B Displaced fracture of distal phalanx of left ring finger, initial encounter for open fracture (principal); Z23 Encounter for immunization; I48.91 Unspecified atrial fibrillation; I34.0 Nonrheumatic mitral (valve) insufficiency; J44.9 Chronic obstructive pulmonary disease, unspecified; F17.200 Nicotine dependence, unspecified, uncomplicated; Z79.899 Other long term (current) drug therapy; Z79.01 Long term (current) use of anticoagulants; W29.2XXA Contact with other powered household machinery, initial encounter
CPT/HCPCS: 73140; 90471; 90715; 96374; 96375; 99284; J0690; J1170; J2405

== ENCOUNTER 2024-11-25 18:23 | Inpatient (IN) | payer OTHER, SELFPAY ==
[2024-11-25] VITALS (12 sets, daily range): BP systolic 128–160; BP diastolic 82–105; PULSE 97–154; RESP 16–28; O2SAT 92–99
--- NOTE | ~2024-11-25 | XR_ITS ---
CHEST RADIOGRAPH CLINICAL HISTORY: overdose . COMPARISON: 11/11/2023 TECHNIQUE: Single portable view of the chest. FINDINGS The cardiomediastinal silhouette is unremarkable. Centrilobular emphysematous change is detected bilaterally with bibasilar bulla. The remainder the lungs are clear. IMPRESSION: Severe centrilobular emphysema without focal infiltrate or effusion. Reviewed, dictated and finalized at location A.
--- NOTE | ~2024-11-25 | XR_ITS ---
XR chest 1V portable Ordering provider: Flip Lilly MD History: 64 years Male with . CHF . Comparison: None November 25, 2024 FINDINGS: MEDIASTINUM: The cardiac silhouette is not enlarged. LUNGS: No infiltrates, effusions or pneumothorax. Underlying emphysematous changes. OTHER: No free air under the diaphragm. Degenerative changes of the spine. IMPRESSION: Emphysematous changes of the lungs. No acute cardiopulmonary pathology. Reviewed, dictated and finalized at location A.
--- NOTE | 2024-11-25 18:27 | ECG_ITS ---
Test Date: 2024-11-25 18:31:00 Measurements Intervals [place] Rate: 116 P: 0 WI: 0 QRS: 91 QRSD: 88 T: 62 QT: 323 QTc: 450 Interpretive Statements ATRIAL FIBRILLATION WITH RAPID VENTRICULAR RESPONSE WITH ABERRANT CONDUCTION OR VENTRICULAR PREMATURE COMPLEXES ANTEROLATERAL MYOCARDIAL INFARCTION , OF INDETERMINATE AGE Electronically Signed On 11-27-2024 13:53:05 CDT by Puma Vazquez D.O
--- OUTSIDE RECORDS SUMMARY | 2024-11-25 19:11 | XMS_ITS | Clinical Summary ---
Author Organization [facility] Address [address] [place] [address] Care Team Providers Care Clinical Director Name Role Phone Rios Samuel MD Primary Care Provider [phone] Allergies Active Allergy Reactions Criticality Noted Date Comments Latex Rash Medium 06/10/2024 Medications acetaminophen (TYLENOL) 325 mg tablet Take 2 tablets (650 mg total) by mouth every 4 (four) hours as needed for pain 30 tablet 12/06/19 23 Active Additional Information Patient not taking.Reported on 10/27/2024 naloxone (NARCAN) 4 mg/actuation spray,non-aeros ol Administer 1 spray into affected nostril(s) as needed for opioid reversal or respiratory depression Call 911. Administer a single spray in one nostril. Repeat every 3 minutes as needed if no or minimal response. 2 each 10/29/19 24 Active fluticasone-ume clidin-vilanter (Trelegy Ellipta) 200-62.5-25 mcg inhaler Inhale 1 puff daily 30 each 5 12/07/19 24 Active spironolactone (ALDACTONE) 25 mg tablet Take 1 tablet (25 mg total) by mouth daily 30 tablet 11 12/07/19 24 025 Active rivaroxaban (XARELTO) 20 mg tabletIndicatio ns:Paroxysmal atrial fibrillation (HCC) Take 1 tablet (20 mg total) by mouth daily with dinner 30 tablet 11 12/07/19 24 025 Active metoprolol XL (TOPROL-XL) 100 mg 24 hr tablet Take 1 tablet (100 mg total) by mouth daily 30 tablet 11 12/07/19 24 025 Active lisinopriL (PRINIVIL,ZESTR IL) 5 mg tablet Take 1 tablet (5 mg total) by mouth daily 30 tablet 12/07/19 24 025 Active gabapentin (NEURONTIN) 300 mg capsuleIndicati ons:Numbness and tingling of lower extremity,Sciat ic nerve pain, left Take 1 capsule (300 mg total) by mouth 3 (three) times a day 90 capsule 12/07/19 24 025 Active digoxin (LANOXIN) 125 mcg (0.125 mg) tablet Take 1 tablet (125 mcg total) by mouth daily 30 tablet 11 12/07/19 24 025 Active tamsulosin (FLOMAX) 0.4 mg extended release capsule Take 2 capsules (0.8 mg total) by mouth daily with dinner 01/01/20 24 025 Active albuterol HFA (PROVENTIL HFA,VENTOLIN HFA,PROAIR HFA) 90 mcg/actuation inhalerIndicati ons:Pulmonary emphysema, unspecified emphysema type (HCC) Inhale 2 puffs every 4 (four) hours as needed for wheezing or shortness of breath 3 each 3 05/09/20 24 Active topiramate (TOPAMAX) 25 mg tablet TAKE 1 TABLET(25 MG) BY MOUTH TWICE DAILY 120 tablet 06/29/20 24 Active Additional Information Patient taking differently:25 mg oralDaily, Reported on 10/27/2024 folic acid (FOLVITE) 1 mg tablet Take 1 tablet (1 mg total) by mouth daily 30 tablet 06/30/20 24 Active thiamine (VITAMIN B-1) 250 mg tablet Take 1 tablet (250 mg total) by mouth daily for 5 days 5 tablet 06/30/20 24 Active mirtazapine (REMERON) 15 mg tablet Take 1 tablet (15 mg total) by mouth nightly 90 tablet 4 07/14/20 24 026 Active buprenorphine-n aloxone (SUBOXONE) 8-[address] 1 Film under the tongue 4 (four) times a day for 28 days 112 Film 09/22/19 25 Active sertraline (ZOLOFT) 100 mg tablet Take 2 tablets (200 mg total) by mouth daily 180 tablet 3 09/22/19 25 026 Active sulfamethoxazol e-trimethoprim (BACTRIM DS) 800-160 mg per tablet Take 1 tablet by mouth 2 (two) times a day for 7 days 14 tablet 10/27/19 25 025 Discontinued sulfamethoxazol e-trimethoprim (BACTRIM DS) 800-160 mg per tablet Take 1 tablet by mouth 2 (two) times a day for 14 days 28 tablet 10/27/19 25 025 Active Problems Problem Noted Date Diagnosed Date Opioid dependence 07/04/2024 Assessment & Plan (10/27/2024 8:57 PM JEWELRY COATER): Not well controlled; patient reports recent use of fentanyl; has sensation if currently breathing better, likely opioid side effects of decreasing oxygen Recommend discontinuing fentanyl; continue Suboxone 8 mg q.i.d. Assessment & Plan (09/29/2024 1:23 PM JEWELRY COATER): Stable, well controlled; no use of any fentanyl; no desire to use Good relief with medications Continue buprenorphine 8 mg q.i.d. 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 Cramping and weakness in legs, poss iron deficiency. - Check for anemia, vitamin/electrolyte deficiencies - Resume supplementation, encouraged increased po nutritional intake - Suspect underlying PVD, 1+ PD and PT pulses, check arterial dopplers. 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 Assessment & Plan (10/27/2024 8:57 PM JEWELRY COATER): Stable, patient reports some improvement in cognition; though has acute worsening due to recent fentanyl use Assessment & Plan (06/13/2024 3:34 PM CDT): Stable, susan Barney; has some forgetfulness and difficulty with organization focus Assessment & Plan (05/27/2024 3:55 PM CDT): Not well controlled, continues to have some difficulty with word finding, difficulty with names; mental changes have occurred since hospitalization Continue to encourage cessation of alcohol and other substances Assessment & Plan (01/28/2024 1:35 PM CDT): Not well controlled, patient continues to have difficulty with completing thoughts; poor memory in organization Will continue to monitor Assessment & Plan (01/01/2024 4:41 PM CDT): Continues to have difficulty with focus and concentration; Continue folate, thiamine and B12 supplements Assessment & Plan (11/17/2023 2:51 PM JEWELRY COATER): Not well controlled, patient continues to have some confusion, difficulty with focus and concentration; unclear if related to multiple prolonged hospitalizations verses prolonged encephalopathy Will continue to monitor, encouraged continued alcohol cessation Alcohol abuse 10/10/2023 Elevated brain natriuretic peptide (BNP) level 0 10/10/2023 New onset of congestive heart failure 10/10/2023 Assessment & Plan (07/28/2024 1:27 PM JEWELRY COATER): Stable, no significant peripheral edema; has some shortness of breath, unclear if related to COPD versus heart failure; will continue to optimize medications to reduce symptoms Normocytic anemia 10/09/2023 Thrombocytosis 10/09/2023 Acute systolic congestive heart failure 10/09/19 Assessment & Plan (05/27/2024 3:55 PM CDT): Stable, no major worsening disease; no peripheral edema Last echo demonstrated global systolic dysfunction with an LVEF of 40%; may be toxic cardiomyopathy secondary to alcohol or other substances Continue spironolactone 25 mg daily Assessment & Plan (01/28/2024 1:35 PM CDT): Gets short of breath easily; difficulty with walking or being engaged in activities for extended duration time Continue spironolactone 25 mg daily, metoprolol 100 mg daily, lisinopril 5 mg daily Would benefit from addition of Jardiance Assessment & Plan (01/01/2024 4:41 PM CDT): Stable, well controlled; no significant peripheral edema, has some dyspnea; but low concern for pleural effusions at this time Continue spironolactone 25 mg daily, metoprolol 100 mg daily, lisinopril 5 mg daily Assessment & Plan (11/17/2023 2:51 PM JEWELRY COATER): Stable, well controlled; no significant peripheral edema, LVEF was 40%, global systolic dysfunction; may be alcohol related heart disease Continue lisinopril 5 mg daily, metoprolol 100 mg daily, spironolactone 25 mg daily; may benefit from SGLT2 inhibitor Assessment & Plan (11/07/2023 5:41 PM JEWELRY COATER): - TTE (09/24/23)- mild LV systolic dysfunction; LVEF 40 %, moderate left atrial enlargement. - Meds as above, optimize nutrition; reduce Na+; avoid smoking, EtOH and illicit substances - No LE edema, pulmonary crackles - Needs f/up appt with cardiology Atrial fibrillation 09/23/2023 Assessment & Plan (06/13/2024 3:34 PM CDT): Regular rate and rhythm; will continue to monitor closely, continue Xarelto 20 mg daily Assessment & Plan (05/27/2024 3:54 PM CDT): Stable, rate controlled; continue digoxin 125 mcg daily, rivaroxaban 20 mg daily Assessment & Plan (01/28/2024 1:34 PM CDT): Rate controlled today; irregular rhythm Continue metoprolol 100 mg daily, digoxin 125 mcg daily Assessment & Plan (01/01/2024 4:40 PM CDT): Stable, rate and rhythm controlled today; continue digoxin 125 mcg daily; metoprolol 100 mg daily Has easy bruising or bleeding; continue Xarelto 20 mg daily Assessment & Plan (12/17/2023 4:02 PM CDT): Stable, rate controlled today; no major side effects from medications; continue digoxin 125 mcg daily, metoprolol 100 mg daily, Xarelto 20 mg daily Assessment & Plan (11/17/2023 2:50 PM JEWELRY COATER): Stable, rate controlled; no major side effects associated with medication Continue digoxin 125 mcg daily, Xarelto 20 mg daily, metoprolol 100 mg daily Moderate protein-calorie malnutrition 12/03/2022 Assessment & Plan (07/28/2024 1:27 PM JEWELRY COATER): Stable, improving; patient reports improving appetite, though still typically only eats 1 meal per day; encouraged patient to take meal supplements between meals are in replacement if he is not currently eating rare Pristiq Continue mirtazapine 15 mg nightly Assessment & Plan (11/07/2023 5:44 PM JEWELRY COATER): - Optimize diet, eat at least 3 meals daily - Continue supplementation w multivitamin, B12, folate, thiamine Opioid withdrawal 12/01/2022 Assessment & Plan (01/01/2024 4:40 PM CDT): Stable, well controlled; no use of opioids; continues to have some episodes of cravings for opioids due to chronic pain Will increase bupropion to 8 mg Sciatic nerve pain, left 01/21/2022 Assessment & Plan (12/17/2023 4:02 PM CDT): Continues to have left lower back pain; improved relief with Suboxone; encouraged continued physical activity exercises as tolerated Buprenorphine; gabapentin 300 mg t.i.d. Assessment & Plan (11/07/2023 5:44 PM JEWELRY COATER): - Start gabapentin 300 mg TID Alcohol dependence with withdrawal 01/16/2022 Assessment & Plan (10/27/2024 8:56 PM JEWELRY COATER): Not well controlled; patient reports recent use of alcohol, 1 pt for several days; patient reports use was related to wanting to limits withdrawal symptoms Recommend continued cessation of all alcohol given history of cardiomyopathy likely secondary to alcohol use Assessment & Plan (09/29/2024 1:23 PM JEWELRY COATER): Not well controlled; patient reports he has returned to drinking; drinking daily, though reports he has been drinking less than he used to; encourage work towards complete cessation; returned to regular meetings, especially with ability to distract patient from desire to drink Assessment & Plan (07/19/2024 3:16 PM JEWELRY COATER): Stable, has been alcohol and drug-free since hospitalization; starting to attend AA meetings Encouraged continued engagement with Peer neonatal specialist, mutual support groups to maintain sobriety Continue with treating underlying opioid use disorder Assessment & Plan (06/13/2024 3:33 PM CDT): Not well controlled; patient has increased stressors; caring for self, has been drinking more than prior Would recommend patient be evaluated for inpatient detox Assessment & Plan (01/28/2024 1:33 PM CDT): Stable, well controlled; no use of any alcohol since last visit; patient remains sober from alcohol Assessment & Plan (01/01/2024 4:39 PM CDT): Stable, improving; patient reports no use of alcohol since recent hospital stay; understands health risk associated with alcohol; who is friends who are engaged in AA; has good support system Not currently engaged in mutual support groups Will continue to monitor, encourage complete cessation from alcohol; would encourage follow-up with peer neonatal specialist; engagement mutual support Assessment & Plan (12/17/2023 4:03 PM CDT): Stable, improving; last use of alcohol was around October 29 Patient continues to work on complete cessation of alcohol use Continue treatment buprenorphine to help reduce cravings and desire for other substances and encourage abstinence Assessment & Plan (11/17/2023 2:50 PM JEWELRY COATER): Stable, generally well controlled; patient reports required 20 day hospitalization to detox from alcohol; after discharge had 2 drinks and has had no desire to drink since then Last alcohol use of approximately to 1224 Encouraged continued cessation of alcohol; encouraged patient to engage with individual therapy, continue gabapentin 300 mg t.i.d. Assessment & Plan (01/12/2023 5:14 PM CDT): Stable, continues to have difficulty, trouble sleeping; patient reports no alcohol in the last month, has been going to meetings, having difficulty with future, thinking about the day with not having a drink Encouraged patient to continue to engage with mutual support meetings, as well as individual counseling peer neonatal specialist Assessment & Plan (12/22/2022 12:07 PM CDT): Not well controlled; patient reports m issing alcohol; no current recovery engagement; unsure if he needs it, but does have people who can accompany him Previously drinking about 1/5 per day; passes by [employer] in every day for work Encouraged continue changes to reduce alcohol use Encouraged counseling with peer neonatal specialist Will evaluate opportunities to start other treatment options including naltrexone at future appointments Assessment & Plan (01/16/2022 1:03 AM CDT): Continue CIWA, MV, FA and thiamine. Warm handoff following. Polysubstance abuse 01/16/2022 Assessment & Plan (10/27/2024 8:55 PM JEWELRY COATER): Not well controlled, patient reports recent use of substances; continue to encourage cessation Assessment & Plan (09/29/2024 1:23 PM JEWELRY COATER): Check urine drug screen; continues to all:, No use of opioids Assessment & Plan (07/28/2024 1:26 PM JEWELRY COATER): Stable, generally well controlled, no use of alcohol or fentanyl; not as much relief from cravings, though does have improvement with breathing Continue Suboxone 8 mg q.i.d., gabapentin 300 mg t.i.d. Assessment & Plan (06/13/2024 3:32 PM CDT): Not well controlled; patient continues to use fentanyl regular; provide some relief from COPD; likely improves oxygen hunger similar to how morphine is used in end of life care Discussed with patient importance of better control of COPD to reduce need for fentanyl; would recommend patient be evaluated for inpatient detox and possible residential rehab Assessment & Plan (05/27/2024 3:53 PM CDT): Not well controlled; patient has been drinking, up to 6 pack of beer daily; occasional episodes with liquor Symptoms have been present over the past few months, drinking daily Patient also continues to use substances including fentanyl; patient has multiple complications which impacts his ability to get sober at this time Had initial relief with Suboxone; but had relapse Patient is not ready to go to detox at this time Encouraged continue limitations of use; would encourage patient to work on stressors as well as ability to go into hospital for medically assisted detox Assessment & Plan (01/28/2024 1:33 PM CDT): Not well controlled, has used fentanyl 3 times since last visit; patient reports he has been having some cravings at current dose; likely related to anxiety Patient reports limited engagement with mutual support groups, patient reports reluctance to re-engage Encouraged patient to engage with mutual support groups, engage in active recovery Continue Suboxone 8 mg t.i.d. Assessment & Plan (12/17/2023 4:01 PM CDT): Stable currently well controlled; no cravings or withdrawals for fentanyl; has improved management of pain Occasional taking 3 doses Suboxone Continue Suboxone 8 mg b.i.d. Assessment & Plan (01/16/2022 1:02 AM CDT): Patient also uses cocaine and benzos. Supportive care. He smokes 1.5PPD and has a nicotine patch. Anxiety and depression 01/16/2022 Assessment & Plan (09/29/2024 1:24 PM JEWELRY COATER): Well controlled, has been taking higher doses of sertraline Continue sertraline 200 mg daily Assessment & Plan (07/28/2024 1:28 PM JEWELRY COATER): Not well controlled, worsening; has sense of dread and anxiety Multiple complicated medical conditions; taking care of mother who has multiple physical issues Continue mirtazapine 50 mg nightly, increase sertraline to 100 mg daily, continue quetiapine 50 mg nightly Assessment & Plan (06/13/2024 3:34 PM CDT): Not well controlled, feels like the end as needed; feeling hopeless Currently on probation for substances; working with counselor [facility] Continue Seroquel 50 mg nightly, topiramate 25 mg b.i.d., sertraline 50 mg daily Assessment & Plan (01/28/2024 1:34 PM CDT): Stable, well controlled Continue sertraline 50 mg daily, quetiapine 150 mg nightly Assessment & Plan (11/07/2023 5:51 PM JEWELRY COATER): - On seroquel - Meds that were discontinued: clonidine, mirtazapine, duloxetine, and sertraline- continue to hold until evaluated by Dr. Samuel. Assessment & Plan (01/12/2023 5:14 PM CDT): Some improvement with mirtazapine; the patient reports some tolerance Increase mirtazapine to 30 mg daily COPD (chronic obstructive pulmonary disease) 01/2022 Assessment & Plan (10/27/2024 8:56 PM JEWELRY COATER): Not well controlled; continues to have difficulty with breathing; patient has not been using inhaler frequently; has been using fentanyl to control symptoms related to oxygen hunger Recommend continued use of inhalers for symptom relief Assessment & Plan (07/28/2024 1:27 PM JEWELRY COATER): Not well controlled; continues episodes of shortness of breaths; currently having productive cough Will start doxycycline; continue Trelegy Ellipta 1 puff daily, albuterol p.r.n. 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 No current wheezing; no need for acute inflammation Patient not using Trelegy Recommend patient to start Trelegy Ellipta 1 puff daily; would recommend PFTs to evaluate for benefit for possible oxygen therapy Assessment & Plan (05/27/2024 3:54 PM CDT): Stable, well controlled; patient continues to use inhaler regularly; has some difficulty with breathing; per patient it is improved with fentanyl, though that may due to opioid induced decreased respiratory rate Continue albuterol p.r.n., Trelegy Ellipta 1 puff daily Assessment & Plan (01/28/2024 1:34 PM CDT): Not well controlled, had episode 10 days ago, use fentanyl to help calm down Has episodes of breathing even sitting down; albuterol provides relief for 1-2 hours at a time Continue albuterol p.r.n.; continue Trelegy 1 puff daily Assessment & Plan (01/01/2024 4:39 PM CDT): Not well controlled, continues to have shortness of breath every day; occasional episodes of dizziness; improvement with rest Continue Trelegy Ellipta 1 puff daily; albuterol 2 puffs p.r.n. Assessment & Plan (12/17/2023 4:02 PM CDT): Not well controlled, has mixed issues; works closely in around a lot of dust which can trigger worsening symptoms Continue Trelegy Ellipta 1 puff daily; albuterol p.r.n. Assessment & Plan (01/12/2023 5:14 PM CDT): Stable, generally well controlled, improving per patient Accels through pursed lips Continue Anoro Ellipta 1 puff daily Assessment & Plan (01/16/2022 1:02 AM CDT): Continue prn albuterol Weakness 01/16/2022 Assessment & Plan (01/01/2024 4:40 PM CDT): Not well controlled; continues have significant weakness; episodes of vertigo; varies from day-to-day Living related to malnutrition; given patient has poor dietary intake; recommend patient eat at least 3-4 times per day; small snacks in 1 large meal Encouraged patient to look for convenient foods to eat in order to ensure that he is getting appropriate calories through the day Assessment & Plan (12/22/2022 12:08 PM CDT): Not well controlled; patient feels exhausted all the time; unclear if related to poor nutritional status due to alcohol and opioid use; verses other underlying conditions Will work on sobriety; begin to workup other causes of anorexia and fatigue Assessment & Plan (01/16/2022 1:00 AM CDT): Subjective weakness. Motor strength symmetric 5/5 B/L. Will consult PT for evaluation and check CK and TSH. HTN (hypertension) 01/16/2022 Assessment & Plan (10/27/2024 8:57 PM JEWELRY COATER): Stable, well controlled, blood pressure at goal Continue lisinopril 5 mg daily, metoprolol 100 mg daily, spironolactone 25 mg Assessment & Plan (07/28/2024 1:26 PM JEWELRY COATER): Stable, well controlled, blood pressure at goal; patient reports no chest pain or pressure Continue spironolactone 25 mg daily, metoprolol 100 mg daily, lisinopril 5 mg daily Assessment & Plan (06/13/2024 3:34 PM CDT): Stable, well controlled, blood pressure low, no orthostatics Continue lisinopril 5 mg daily, metoprolol 100 mg daily, will adjust medications to reduce side effects Assessment & Plan (05/27/2024 3:54 PM CDT): Stable, well controlled, blood pressure at goal; no chest pain or pressure , lisinopril 5 mg daily, spironolactone 25 mg daily Assessment & Plan (11/07/2023 5:46 PM JEWELRY COATER): - BP stable, meds as above Assessment & Plan (01/12/2023 5:13 PM CDT): Blood pressure mildly elevated this morning; patient reports he just recently woke up, had overslept; recently took DEXA alanine for sleep initiation Continue monitor closely, continue losartan 50 mg daily, clonidine 0.1 mg b.i.d. Assessment & Plan (12/22/2022 12:06 PM CDT): Blood pressure mildly elevated today; no chest pain Continue losartan 50 mg daily, clonidine 0.1 mg b.i.d. Assessment & Plan (01/16/2022 1:01 AM CDT): Continue lisinopril. Improved. Unintentional weight loss 01/16/2022 Assessment & Plan (07/19/2024 3:17 PM JEWELRY COATER): Patient continues to have poor appetite; depression; will start mirtazapine 15 mg daily to help with sleep initiation and appetite stimulation Assessment & Plan (01/16/2022 1:04 AM CDT): Patient states he lost 30lbs in 3months unintentionally. Will consult masonry inspector for malnutrition assessment. Opioid abuse 01/16/2022 Assessment & Plan (11/17/2023 2:49 PM JEWELRY COATER): Stable, well controlled; patient reports no current desire to use, tolerating current medication well Continue buprenorphine 8 mg b.i.d. Assessment & Plan (11/07/2023 5:45 PM JEWELRY COATER): - UDS today - F/up with Dr. Samuel for MAT appt later this week - On Suboxone Assessment & Plan (01/12/2023 5:13 PM CDT): Stable, improving; patient reports no use of any opioids in the past month Continue buprenorphine 8 mg b.i.d. Discussed with patient since he is still having cravings have a would not recommend tapering medication at this time, but will taper in future when patient is ready Assessment & Plan (12/22/2022 12:06 PM CDT): Stable, improving; currently taking Suboxone 2 mg b.i.d., had previously used up to 10 beats per day fentanyl; down to 4 beans prior to admission for detox Continue Suboxone 8 mg b.i.d.; will work with patient to taper as patient would like to switch to naltrexone long-term Assessment & Plan (01/16/2022 1:12 AM CDT): Patient uses up to 15 capsules of fentanyl daily. His last use was the morning of presentation. Continue supportive care. Resolved Problems Problem Noted Date Diagnosed Date Resolved Date Aspiration pneumonia 10/13/2023 02/02/2 024 Leg edema, right 10/10/2023 10/16/2023 Pleural effusion 10/10/2023 10/16/2023 Hypokalemia 10/09/2023 10/12/2023 Diarrhea 10/09/2023 10/13/2023 Urinary retention 10/09/2023 10/16/2023 Agitation 10/09/2023 10/16/2023 Acute respiratory failure with hypoxia 10/09/2023 10/09/2023 Moderate malnutrition 01/17/20222022 Delirium tremens 01/17/2022 12/03/2022 Encounters Date Type Department Care Team Description 11/25/2024 [facility] Initial Eligibility [facility] [address] [place], [place] [phone] Laura Ferreira 11/03/2024 Results Follow-Up [facility] [address] [phone] Rios Samuel MD 10/28/2024 Telephone [facility] [address] [phone] Rios Samuel MD Update on Test results 10/27/2024 2:30 PM JEWELRY COATER Office Visit [facility] [address] [phone] Rios Samuel MD Polysubstance abuse (HCC) (Primary Dx); Alcohol dependence with withdrawal delirium (HCC); Centrilobular emphysema (HCC); Uncomplicated opioid dependence (HCC); Primary hypertension; Alcoholic encephalopathy; Acute cystitis without hematuria 10/27/2024 Documentation [facility] [address] [place], [place] [phone] Partha Valle 10/25/2024 1:30 PM JEWELRY COATER Lab [facility] Outpatient Lab at [address] [phone] Antidepressant type abuse, continuous (HCC) (Primary Dx); Screening examination for poliomyelitis; Genitourinary symptoms 10/25/2024 1:26 PM JEWELRY COATER - 10/25/2024 11:59 PM JEWELRY COATER Hospital Encounter [address] [phone] Polysubstance abuse (HCC); Need for hepatitis B screening test; UTI symptoms Discharge Disposition: Discharge to home or self care 10/10/2024 Nurse Triage [facility] [address] [phone] Rios Samuel MD UTI symptoms (Primary Dx) 10/05/2024 Nurse Triage [facility] [address] [phone] Rios Samuel MD 09/22/2024 4:34 PM JEWELRY COATER - 09/22/2024 11:59 PM JEWELRY COATER Hospital Encounter [address] [phone] Polysubstance abuse (HCC) Discharge Disposition: Discharge to home or self care 09/22/2024 3:30 PM JEWELRY COATER Office Visit [facility] [address] [phone] Rios Samuel MD Polysubstance abuse (HCC) (Primary Dx); Alcohol dependence with withdrawal delirium (HCC); Uncomplicated opioid dependence (HCC); DCM (dilated cardiomyopathy) (HCC); Anxiety and depression 09/22/2024 Documentation [facility] [address] [place], [place] [phone] Partha Valle 09/13/2024 Nurse Triage [facility] [address] [phone] Rios Samuel MD from Last 3 Months Immunizations Immunization Administration Dates Next Due Influenza, Unspecified 10/27/2024(Deferr ed: Patient Refused),07/28/2024(Deferred: Patient Refused),07/14/2024(Deferred: Patient Refused),11/05/2023(Deferred: Patient Refused),08/24/2023(Deferred: Patient Refused),09/14/2022(Deferred: Patient Refused),09/14/2022(Deferred: Patient Refused),06/14/2022(Deferred: Patient Refused),09/14/2021(Deferred: Patient Refused),09/14/2021(Deferred: Patient Refused),06/14/2021(Deferred: Patient Refused) Surgical History Surgery Date Site/Laterality Comments HAND SURGERY left hand ring finger procedure Medical History Medical History Date Comments Delirium tremens (HCC) 01/17/2022 COPD (chronic obstructive pulmonary disease) (HC C) Social History Tobacco Use Types Packs/Day Years Used Date Smoking Tobacco: Every Day Cigarettes 1 15 Tobacco Cessation:Ready to Q uit: Yes; Counseling Given: Not Answered Alcohol Use Standard Drinks/Week Comments Yes 0 (1 standard drink = 0.6 oz pur e alcohol) fifth/day [facility] Utilities Answer Date Recorded In the past 12 months has e [employer], gas, oil, or water [employer] threatened to shut off services in your home? No 07/05/2024 Social Connection and Isolat ion Panel [NHANES] Answer Date Recorded In a typical week, how many times do you talk on the phone with family, friends, or neighbors? More than three times a week 07/05/2024 How often do you get togethe r with friends or relatives? More than three times a week 07/05/2024 How often do you attend chur ch or restorationism services? Never 07/05/2024 Do you belong to any clubs o r organizations such as baptist groups, unions, fraternal or athletic groups, or school groups? No 07/05/2024 How often do you attend meet ings of the clubs or organizations you belong to? Never 07/05/2024 Are you , , di vorced, , never , or living with a partner? Never 07/05/2024 Overall Financial Resource Strain (CARDIA) Answe r Date Recorded How hard is it for you to pa y for the very basics like food, housing, medical care, and heating? Very hard 07/05/2024 PHQ-2 Answer Date Recorded PHQ-2 Total Score (If total score is 3 or more points, staff should administer the PHQ-9) 2 07/14/2024 Hunger Vital Sign Answer Date Recorded Within the past 12 months, y ou worried that your food would run out before you got the money to buy more. Sometimes true Within the past 12 months, t he food you bought just didn't last and you didn't have money to get more. Sometimes true PRAPARE - Transportation Answer Date Re corded In the past 12 months, has l ack of transportation kept you from medical appointments or from getting medications? Yes 06/15 In the past 12 months, has l ack of transportation kept you from meetings, work, or from getting things needed for daily living? Yes 07/05/2024 Housing Stability Vital Sign Answer Jeffrey e Recorded In the last 12 months, was t here a time when you were not able to pay the mortgage or rent on time? No 09/24/2023 In the last 12 months, how many places have you lived? 1 09/24/2023 In the last 12 months, was t here a time when you did not have a steady place to sleep or slept in a nursing home (including now)? No 09/24/2023 Housing Stability Vital Sign Answer Jeffrey e Recorded In the last 12 months, was t here a time when you were not able to pay the mortgage or rent on time? No 07/05/2024 In the past 12 months, how m any times have you moved where you were living? 0 07/05/2024 At any time in the past 12 m [facility], were you homeless or living in a nursing home (including now)? No 07/05/2024 Personal Safety Answer Date Recorded Have you ever been in or are you currently in a harmful physical or emotional relationship or is someone making you feel afraid or unsafe? Denies 06/27/2024 Education Answer Date Recorded What is the highest level of school you have completed or the highest degree you have received? 12th grade 09/24/2023 Sex and Gender Information Value Date Recorded Sex Assigned at Not on file Legal Sex Male 4:58 AM JEWELRY COATER Gender Identity Not on file Sexual Orientation Not on file Obstetrics History Last Filed Vital Signs Vital Sign Reading Time Taken Comments Blood Pressure 96/60 10/27/2024 2:43 PM JEWELRY COATER Pulse 78 10/27/2024 2:43 PM JEWELRY COATER Temperature 36.7 C (98.1 F) 10/27/2024 2:43 PM JEWELRY COATER Respiratory Rate 18 10/27/2024 2:43 PM JEWELRY COATER Oxygen Saturation 94% 10/27/2024 2:4 3 PM JEWELRY COATER pt hands are cold Inhaled Oxygen Concentration - - Weight 60.8 kg (134 lb) 10/27/2024 2:43 PM JEWELRY COATER Height 177.8 cm (5' 10 ) 10/27/2024 2:4 3 PM JEWELRY COATER Body Mass Index 19.23 10/27/2024 2:43 PM JEWELRY COATER Plan of Treatment Health Maintenance Due Date Last Done Comments Colon Cancer Screening-Colonoscopy 1960 DTaP/Tdap/Td Vaccine (1 - Tdap) 1971 Hepatitis B Screening 1978 Regular Well Visit/Exam 18-64 1978 Pneumococcal vaccine <65 (1 of 2 - PCV) 1979 Zoster Vaccine (1 of 2) 2010 Covid-19 Vaccine (3 - 2023-2 5 season) 2024 08/22/2021, 11/20/2020 Influenza Vaccine (#1) 2024 Depression Screening 07/14/2025 07/14/2024, 01/12/2023, 12/10/2022, Additional history exists Prostate Cancer Screening-PSA 12/06/2025 12/07/2023 Hepatitis C Screening Completed 12/07/2023 Procedures Procedure Name Priority Date/Time Associated Diagnosis Comments FENTANYL CONFIRMATION, MS URINE Routine 10/25/2024 1:26 PM JEWELRY COATER Polysubstance abuse (HCC) URINALYSIS, MICROSCOPIC ONLY Routine 10/25/2024 1:26 PM JEWELRY COATER UTI symptoms DRUGS OF ABUSE SCREEN, URINE WITH REFLEX CONFIRMATION Routine 10/25/2024 1:26 PM JEWELRY COATER Polysubstance abuse (HCC) BUPRENORPHINE AND NORBUPRENORPHINE, RANDOM, URINE Routine 10/25/2024 1:26 PM JEWELRY COATER Polysubstance abuse (HCC) URINE CULTURE Routine 10/25/2024 1:26 PM JEWELRY COATER URINALYSIS AND REFLEX TO MICROSCOPIC AND CULTURE Routine 10/25/2024 1:26 PM JEWELRY COATER UTI symptoms HEPATITIS B SURFACE ANTIGEN Routine 10/25/2024 1:26 PM JEWELRY COATER Need for hepatitis B screening test DRUGS OF ABUSE SCREEN, URINE WITH REFLEX CONFIRMATION Routine 09/22/2024 4:34 PM JEWELRY COATER Polysubstance abuse (HCC) BUPRENORPHINE AND NORBUPRENORPHINE, RANDOM, URINE Routine 09/22/2024 4:34 PM JEWELRY COATER Polysubstance abuse (HCC) HEPATITIS C ANTIBODY Routine 12/07/2023 3:52 PM CDT Encounter for hepatitis C screening test for low risk patient PSA SCREEN Routine 12/07/2023 3:52 PM CDT Screening PSA (prostate specific antigen) from Last 3 Months or Most Recently Relevant to Health Maintenance Results * Fentanyl Confirmation, Urine (10/25/2024 1:26 PM JEWELRY COATER) Fentanyl Conf, Ur Does Not Confirm Cutoff 0.3ng/mL Comment:Testing performed by : [facility], [address] [place] [address]., [id number] Acetylfentanyl Conf, Ur Does Not Confirm Cutoff 1 ng/mL CERNER Comment:Testing performed by : [facility], [address] [place] [address]., [id number] Acrylfentanyl Conf, Ur Does Not Confirm Cutoff 1 ng/mL CERNER Comment:Testing performed by : [facility], [address] [place] [address], [place]., [address] Furanylfentanyl Conf, Ur Does Not Confirm Cutoff 1 ng/mL CERNER Comment:Testing performed by : [facility], [address] [place] [address]., [id number] Fentanyl Metabolite (Norfentanyl) Conf, Ur Does Not Confirm CutOff 5 ng/mL CERNER Comment:Testing performed by : [facility], [address] [place]., [address] Xylazine MS Does Not Confirm Cutoff 1 ng/mL CERNER Comment: Interpretive Data This test detects the presence or absence of drug compounds using LC Tandem mass spectrometry and is not intended to assess compliance with prescribed medications. While this test is highly specific, false positive and false negative results may occur in very rare circumstances. Contact the laboratory for consultation, if needed. Performance characteristics were determined by the [facility] in a manner consistent with CLIA requirement and has not been cleared or approved by the U.S. Food and Drug Administration. Current interpretive data was last revised 2020. Testing performed by: [facility], [address] [place]., [address] Urine 10/25/2024 1:26 PM JEWELRY COATER 10/26/2024 3:47 PM JEWELRY COATER us Rios Samuel MD LAB URINE ORDERABLES Tran killian Result KELSEY [id number] [address] Department [place] [address] * (ABNORMAL) Drugs of Abuse Screen, Urine with Reflex Confirmation (10/25/2024 1:26 PM JEWELRY COATER) Amphetamine, ur Not Detected CutOff 500ng/mL Comment: Interpretive Data - Amphetamines: Samples containing greater than 500 ng/mL d-methamphetamine or other cross-reacting amphetamine compounds are reported as positive. Amphetamine immunoassays are subject to significant false positive rates due to cross-reactivity of non-amphetamine drugs. Confirmatory testing required for definitive results. Current Interpretive Data was last reviewed 2023. Barbiturates, ur Not Detected CutOff 200ng/mL KELSEY SHELL Comment: Interpretive Data - Barbiturates: Samples containing greater than 200 ng/mL secobarbital or other cross-reacting barbiturate compounds are reported as positive. False positive and false negative results are possible. Confirmatory testing required for definitive results. Current Interpretive Data was last reviewed 2023. Benzodiazepines, ur Not Detected CutOff 100ng/mL KELSEY SHELL Comment: Interpretive Data - Benzodiazepines: Samples containing greater than 100 ng/mL nordiazepam or other cross-reacting compounds are reported as positive. False positive and false negative results are possible. Confirmatory testing required for definitive results. Current Interpretive Data was last reviewed 2023. Cannabinoids, ur Screen Positive, presumptive (A) CutOff 50 ng/mL CERNER Comment: Interpretive Data - Cannabinoids: Samples containing greater than 50 ng/mL delta-9 THC -COOH or other cross- reacting compounds are reported as positive. False positive and false negative results are possible. Confirmatory testing required for definitive results. Current Interpretive Data was last reviewed 2023. Cocaine, ur Not Detected CutOff 150ng/mL CERNER Comment: Interpretive Data - Cocaine: Samples containing greater than 150 ng/mL benzoylecgonine or other cross- reacting compounds are reported as positive. False positive and false negative results are possible. Confirmatory testing required for definitive results. Current Interpretive Data was last reviewed 2023. Fentanyl, Ur Screen Positive, presumptive (A) CutOff 5 ng/mL CERNER Comment: Interpretive Data - Fentanyl: Samples containing greater than 5 ng/mL norfentanyl, fentanyl, or other cross-reacting fentanyl compounds are reported as positive. False positive and false negative results are possible. Confirmatory testing required for definitive results. Current Interpretive Data was last reviewed 2024. Methadone, ur Not Detected CutOff 300ng/mL CERNER Comment: Interpretive Data - Methadone: Samples containing greater than 300 ng/mL d,l-methadone or other cross-reacting compounds are reported as positive. False positive and false negative results are possible. Confirmatory testing required for definitive results. Current Interpretive Data was last reviewed 2023. Opiates, ur Not Detected CutOff 300ng/mL CERNER Comment: Interpretive Data - Opiates: Samples containing greater than 300 ng/mL morphine or other cross-reacting compounds are reported as positive. False positive and false negative results are possible. Confirmatory testing required for definitive results. Current Interpretive Data was last reviewed 2023. Oxycodone, ur Not Detected CutOff 100ng/mL CERNER Comment: Interpretive Data - Oxycodone: Samples containing greater than 100 ng/mL oxycodone or other cross-reacting compounds are reported as positive. False positive and false negative results are possible. Confirmatory testing required for definitive results. Current Interpretive Data was last reviewed 2023. Phencyclidine, ur Not Detected CutOff 25 ng/mL CERNER Comment: Interpretive Data - Phencyclidine: Samples containing greater than 25 ng/mL phencyclidine or other cross-reacting compounds are reported as positive. False positive and false negative results are possible. Confirmatory testing required for definitive results. Current Interpretive Data was last reviewed 2023. Urine Creatinine 162 mg/dL KELSEY Comment: Interpretive Data Urine Creatinine: < 10 mg/dL is extremely dilute = or > 10 but < 20 mg/dL is dilute = or > 20 mg/dL is normal Current Interpretive Data was last revised on 2017. Urine 10/25/2024 1:26 PM JEWELRY COATER 10/25/2024 6:57 PM JEWELRY COATER Narrative [facility] - 10/25/2024 9:56 PM JEWELRY COATER Drug of Abuse screening is performed by immunoassay for medical purposes only. This is not to be used for Pain Management purposes. If Detected, confirmation testing will be performed for Amphetamines, Cocaine, Fentanyl, Methadone, Opiates, Oxycodone or Phencyclidine. Rios Samuel MD LAB URINE ORDERABLES Tran killian Result KELSEY [id number] [address] Department [place] [address] * Buprenorphine and Norbuprenorphine, Random, Urine (10/25/2024 1:26 PM JEWELRY COATER) [facility] Pain mgt Buprenorphine, Ur Negative Cutoff: 5.0 ng/mL [place] [facility] Pain mgt Buprenorphine metabolite (Norbuprenorphine), Ur 90.1 Cutoff: 2.5 ng/mL KELSEY Comment: ADDITIONAL INFORMATION Testing performed by Liquid Chromatography-Tandem Mass Spectrometry (LC-MS/MS). This test was developed and its performance characteristics determined by [facility] in a manner consistent with CLIA requirements. This test has not been cleared or approved by the U.S. Food and Drug Administration. Test Performed by: [facility] - [address] [address] Ladle Liner: Lyric Coronado Ph.D.; CLIA# [id number] Urine 10/25/2024 1:26 PM JEWELRY COATER 10/25/2024 6:57 PM JEWELRY COATER Rios Samuel MD LAB URINE ORDERABLES Tran l Result KELSEY [id number] [address] Department [place] [address] [facility] * (ABNORMAL) Urinalysis reflex to microscopic and culture Urine, clean voided (10/25/2024 1:26 PM JEWELRY COATER) Color, ur Dorene Yellow Clarity, ur Turbid(A) Clear CERNER CH Specific gravity, ur 1.022 1.003 - 1.030 CERNER CH pH, urine 6.5 CERNER CH Comment: Interpretive Data U rine pH is affected by diet, medications, systemic acid-base disturbances, and renal tubular function. pH may affect urinary stone formation. For example, urine pH below 6.0 may help reduce the tendency for calcium phosphate stones and pH greater than 6.0 may reduce the tendency for uric acid stone formation. Source: [facility] Current Interpretive Data was last revised on 2017 Protein, ur ql Trace Negative CERNER CH Glucose, ur ql Negative Negative CERNER CH Ketones, ur Negative Negative CERNER CH Bilirubin, ur Negative Negative CERNER CH Blood, ur Negative Negative CERNER CH Urobilinogen, ur <2.0 <2.0 mg/dL CERNER CH Nitrite, ur Positive(A) Negative CERNER CH Leukocyte esterase, ur 4+(A) Negative CERNER CH UA reflex comment Reflex to microscopic [facility] will be performed. [facility] Urine, clean voided 10/25/2024 1:26 PM JEWELRY COATER 10/25/2024 6:57 PM JEWELRY COATER Rios Samuel MD LAB MICROBIOLOGY - GENERA L ORDERABLES Final Result KELSEY [address] [address] Department [place] [address] * Hepatitis B Surface Antigen Blood (10/25/2024 1:26 PM JEWELRY COATER) HepBsAg Nonreactive Nonreactive Blood 10/25/2024 1:26 PM JEWELRY COATER 10/25/2024 6:57 PM JEWELRY COATER Rios Samuel MD LAB MICROBIOLOGY - GENERA L ORDERABLES Final Result Performing Organization Address [facility] Co de Phone Number KELSEY SHELL [phone] [address] Department Laboratories [place], [place] [id number] * (ABNORMAL) Urinalysis, microscopic only (10/25/2024 1:26 PM JEWELRY COATER) WBC, ur >50(A) 0 - 5 /HPF RBC, ur 0-2 0 - 2 /HPF CERNER Bacteria, ur 1+(A) CERNER Calcium oxalate crystals, ur 1+(A) CERNER Culture Reflex Comment Reflex to urine culture will be performed. [facility] Urine, clean voided 10/25/2024 1:26 PM JEWELRY COATER 10/25/2024 6:57 PM JEWELRY COATER Rios Samuel MD LAB URINE ORDERABLES Tran l Result Performing Organization Address [facility] Co de Phone Number YANHAYDEN SHELL [phone] [address] Department [place] [address] * (ABNORMAL) Urine culture Urine, clean voided (10/25/2024 1:26 PM JEWELRY COATER) Pathologist [facility] Report Final Report: Greater than or equal to 100,000 colonies/mL of Escherichia coli Greater than or equal to 100,000 colonies/mL of Proteus mirabilis (.) Comment:Testing performed by : [facility], [address] [place]., [address] Organism [facility]ERICHIA COLI [facility] Organism PROTEUS MIRABILIS CERNER Urine, clean voided 10/25/2024 1:26 PM JEWELRY COATER 10/26/2024 12:17 AM JEWELRY COATER Narrative CERNER - 10/28/2024 9:32 AM JEWELRY COATER Urine culture reflexed based upon urinalysis results. Testing performed by [facility] Microbiology Laboratory ([phone]) Organism Antibiotic Method Susceptibility Escherichia coli Ampicillin INTERPRETATION Intermediate Escherichia coli Cefazolin INTERPRETATION Susceptible Escherichia coli Nitrofurantoin INTERPRETATION Susceptible Escherichia coli Gentamicin INTERPRETATION Susceptible Escherichia coli Trimethoprim with Sulfamethoxazole IN TERPRETATION Susceptible Escherichia coli Meropenem INTERPRETATION Susceptible Escherichia coli Cefepime INTERPRETATION Susceptible Escherichia coli Ciprofloxacin INTERPRETATION Susceptible Escherichia coli Ceftazidime INTERPRETATION Susceptible Escherichia coli Ceftriaxone INTERPRETATION Susceptible Escherichia coli Piperacillin/Tazobactam INTERPRETATIO N Susceptible Escherichia coli Cephalexin INTERPRETATION Susceptible Escherichia coli Cefuroxime-axetil INTERPRETATION Susceptible Escherichia coli Cefdinir INTERPRETATION Susceptible Proteus mirabilis Ampicillin INTERPRETATION Susceptible Proteus mirabilis Cefazolin INTERPRETATION Susceptible Proteus mirabilis Nitrofurantoin INTERPRETATION Resistant Proteus mirabilis Gentamicin INTERPRETATION Susceptible Proteus mirabilis Trimethoprim with Sulfamethoxazole I NTERPRETATION Susceptible Proteus mirabilis Meropenem INTERPRETATION Susceptible Proteus mirabilis Cefepime INTERPRETATION Susceptible Proteus mirabilis Ciprofloxacin INTERPRETATION Susceptible Proteus mirabilis Ceftazidime INTERPRETATION Susceptible Proteus mirabilis Ceftriaxone INTERPRETATION Susceptible Proteus mirabilis Piperacillin/Tazobactam INTERPRETATI ON Susceptible Proteus mirabilis Cephalexin INTERPRETATION Susceptible Proteus mirabilis Cefuroxime-axetil INTERPRETATION Susceptible Proteus mirabilis Cefdinir INTERPRETATION Susceptible us Rios Samuel MD LAB MICROBIOLOGY - GENERA L ORDERABLES Final Result KELSEY SHELL [address] [address] Department [place] [address] * Drugs of Abuse Screen, Urine with Reflex Confirmation (09/22/2024 4:34 PM JEWELRY COATER) [facility] Amphetamine, ur Not Detected CutOff 500ng/mL Comment: Interpretive Data - Amphetamines: Samples containing greater than 500 ng/mL d-methamphetamine or other cross-reacting amphetamine compounds are reported as positive. Amphetamine immunoassays are subject to significant false positive rates due to cross-reactivity of non-amphetamine drugs. Confirmatory testing required for definitive results. Current Interpretive Data was last reviewed 2023. Barbiturates, ur Not Detected CutOff 200ng/mL KELSEY SHELL Comment: Interpretive Data - Barbiturates: Samples containing greater than 200 ng/mL secobarbital or other cross-reacting barbiturate compounds are reported as positive. False positive and false negative results are possible. Confirmatory testing required for definitive results. Current Interpretive Data was last reviewed 2023. Benzodiazepines, ur Not Detected CutOff 100ng/mL CERNER Comment: Interpretive Data - Benzodiazepines: Samples containing greater than 100 ng/mL nordiazepam or other cross-reacting compounds are reported as positive. False positive and false negative results are possible. Confirmatory testing required for definitive results. Current Interpretive Data was last reviewed 2023. Cannabinoids, ur Not Detected CutOff 50 ng/mL CERNER Comment: Interpretive Data - Cannabinoids: Samples containing greater than 50 ng/mL delta-9 THC -COOH or other cross- reacting compounds are reported as positive. False positive and false negative results are possible. Confirmatory testing required for definitive results. Current Interpretive Data was last reviewed 2023. Cocaine, ur Not Detected CutOff 150ng/mL CERNER Comment: Interpretive Data - Cocaine: Samples containing greater than 150 ng/mL benzoylecgonine or other cross- reacting compounds are reported as positive. False positive and false negative results are possible. Confirmatory testing required for definitive results. Current Interpretive Data was last reviewed 2023. Fentanyl, Ur Not Detected CutOff 5 ng/mL CERNER Comment: Interpretive Data - Fentanyl: Samples containing greater than 5 ng/mL norfentanyl, fentanyl, or other cross-reacting fentanyl compounds are reported as positive. False positive and false negative results are possible. Confirmatory testing required for definitive results. Current Interpretive Data was last reviewed 2024. Methadone, ur Not Detected CutOff 300ng/mL CERNER Comment: Interpretive Data - Methadone: Samples containing greater than 300 ng/mL d,l-methadone or other cross-reacting compounds are reported as positive. False positive and false negative results are possible. Confirmatory testing required for definitive results. Current Interpretive Data was last reviewed 2023. Opiates, ur Not Detected CutOff 300ng/mL CERNER Comment: Interpretive Data - Opiates: Samples containing greater than 300 ng/mL morphine or other cross-reacting compounds are reported as positive. False positive and false negative results are possible. Confirmatory testing required for definitive results. Current Interpretive Data was last reviewed 2023. Oxycodone, ur Not Detected CutOff 100ng/mL [facility] Comment: Interpretive Data - Oxycodone: Samples containing greater than 100 ng/mL oxycodone or other cross-reacting compounds are reported as positive. False positive and false negative results are possible. Confirmatory testing required for definitive results. Current Interpretive Data was last reviewed 2023. Phencyclidine, ur Not Detected CutOff 25 ng/mL [facility] Comment: Interpretive Data - Phencyclidine: Samples containing greater than 25 ng/mL phencyclidine or other cross-reacting compounds are reported as positive. False positive and false negative results are possible. Confirmatory testing required for definitive results. Current Interpretive Data was last reviewed 2023. Urine Creatinine 86 mg/dL [facility] Comment: Interpretive Data Urine Creatinine: < 10 mg/dL is extremely dilute = or > 10 but < 20 mg/dL is dilute = or > 20 mg/dL is normal Current Interpretive Data was last revised on 2017. Urine 09/22/2024 4:34 PM JEWELRY COATER 09/22/2024 8:28 PM JEWELRY COATER Narrative [facility] - 09/22/2024 9:21 PM JEWELRY COATER Drug of Abuse screening is performed by immunoassay for medical purposes only. This is not to be used for Pain Management purposes. If Detected, confirmation testing will be performed for Amphetamines, Cocaine, Fentanyl, Methadone, Opiates, Oxycodone or Phencyclidine. Rios Samuel MD LAB URINE ORDERABLES Tran killian Result [facility] [id number] Department [place] [address] * Buprenorphine and Norbuprenorphine, Random, Urine (09/22/2024 4:34 PM JEWELRY COATER) [facility] Pain mgt Buprenorphine metabolite (Norbuprenorphine), Ur 1847.4 Cutoff: 2.5 ng/mL [facility] Comment: ADDITIONAL INFORMATION Testing performed by Liquid Chromatography-Tandem Mass Spectrometry (LC-MS/MS). This test was developed and its performance characteristics determined by [facility] in a manner consistent with CLIA requirements. This test has not been cleared or approved by the U.S. Food and Drug Administration. Test Performed by: [facility] [address] [place] [address] Ladle Liner: Lyric Coronado Ph.D.; CLIA# [id number] Pain mgt Buprenorphine, Ur 293.9 Cutoff: 5.0 ng/mL [facility] Urine 09/22/2024 4:34 PM JEWELRY COATER 09/22/2024 8:28 PM JEWELRY COATER Rios Samuel MD LAB URINE ORDERABLES Tran l Result [facility] [id number] [employer] [place] [address] [facility] * (ABNORMAL) PSA screen (12/07/2023 3:52 PM CDT) Pathologist [facility] PSA-Total 6.18(H) <=5.40 ng/mL Comment: Interpretive Data AGE SEX REFERENCE INTERVAL 0 minutes-150 years Female None 0 minutes-49 years Male None 50-59 years Male 0-3.90 60-69 years Male 0-5.40 70-79 years Male 0-6.20 80-150 years Male 0-6.20 The Yesi PSA Total assay procedure was used. Results from different manufacturers or methods may not be comparable. Serial testing should be performed using the same method. Current interpretive data last revised 22. Blood 12/07/2023 3:52 PM CDT 12/07/2023 8:51 PM CDT Rios Samuel MD LAB BLOOD ORDERABLES Tran l Result [facility] [id number] [employer] [place] [address] * (ABNORMAL) Hepatitis C antibody Blood (12/07/2023 3:52 PM CDT) Hep C Ab Reactive( A) Nonreactive Comment: Critical Result Interpretive Data Nonreactive: Antibodies to HCV not detected. Does NOT exclude the possibility of recent exposure to HCV. Equivocal: Equivocal for HCV antibodies. Supplemental molecular testing will be automatically performed to determine infection status in accordance with current CDC screening recommendations. Reactive: Positive for HCV antibodies. This may represent current or past HCV infection. Supplemental molecular testing will be automatically performed to determine current infection status in accordance with current CDC screening recommendations. Interpretive data was last revised on 2019. Blood 12/07/2023 3:52 PM CDT 12/07/2023 8:51 PM CDT us Rios Samuel MD LAB MICROBIOLOGY - GENERA L ORDERABLES Final Result [facility] [id number] Department of Laboratories [place], [place] [id number] from Last 3 Months or Most Recently Relevant to Health Maintenance Insurance [facility] Advance Directives For more information, please contact: [phone] * Full Code (Latest Code Status on File) Date Activated Date Inactivated Comments 06/27/2024 10:56 PM 06/30/2024 6:25 PM * Full Code Date Activated Date Inactivated Comments 06/23/2024 4:09 PM 06/26/2024 12:49 PM * Full Code Date Activated Date Inactivated Comments 09/24/2023 12:54 AM 10/16/2023 9:19 PM * Full Code Date Activated Date Inactivated Comments 12/01/2022 9:30 PM 12/05/2022 7:19 PM * Full Code Date Activated Date Inactivated Comments 12/01/2022 5:36 PM 12/01/2022 9:30 PM Care Teams Clinical Director Relationship Specialty Start Date End [place] [address] PCP - General Family Medicine 12/11/22
--- OUTSIDE RECORDS SUMMARY | 2024-11-25 19:11 | XMS_ITS | Referral Summary ---
Author Organization [facility] Address [address] [place] [address] Care Team Providers Care Health Manager Name Role Phone Rios Samuel MD Primary Care Provider [phone] Encounters Date Type Department Care Team Description 11/25/2024 [facility] Initial Eligibility [facility] [address] [place], [place] [phone] Laura Ferreira 11/03/2024 Results Follow-Up [facility] [address] [phone] Rios Samuel MD 10/28/2024 Telephone [facility] [address] [phone] Rios Samuel MD Update on Test results 10/27/2024 Documentation [facility] [address] [place], [place] [phone] Partha Valle 10/27/2024 2:30 PM UNDERGROUND PRODUCTION FOREPERSON Office Visit [facility] [address] [phone] Rios Samuel MD Polysubstance abuse (HCC) (Primary Dx); Alcohol dependence with withdrawal delirium (HCC); Centrilobular emphysema (HCC); Uncomplicated opioid dependence (HCC); Primary hypertension; Alcoholic encephalopathy; Acute cystitis without hematuria 10/25/2024 1:26 PM UNDERGROUND PRODUCTION FOREPERSON - 10/25/2024 11:59 PM UNDERGROUND PRODUCTION FOREPERSON Hospital Encounter [address] [address] Polysubstance abuse (HCC); Need for hepatitis B screening test; UTI symptoms Discharge Disposition: Discharge to home or self care 10/25/2024 1:30 PM UNDERGROUND PRODUCTION FOREPERSON Lab [facility] at [address] [phone] Antidepressant type abuse, continuous (HCC) (Primary Dx); Screening examination for poliomyelitis; Genitourinary symptoms 10/10/2024 Nurse Triage [facility] [address] [phone] Rios Samuel MD UTI symptoms (Primary Dx) 10/05/2024 Nurse Triage [facility] [address] [phone] Rios Samuel MD 09/22/2024 4:34 PM UNDERGROUND PRODUCTION FOREPERSON - 09/22/2024 11:59 PM UNDERGROUND PRODUCTION FOREPERSON Hospital Encounter [address] [address] Polysubstance abuse (HCC) Discharge Disposition: Discharge to home or self care 09/22/2024 Documentation [facility] [address] [place], [place] [phone] Partha Valle 09/22/2024 3:30 PM UNDERGROUND PRODUCTION FOREPERSON Office Visit [facility] [address] [phone] Rios Samuel MD Polysubstance abuse (HCC) (Primary Dx); Alcohol dependence with withdrawal delirium (HCC); Uncomplicated opioid dependence (HCC); DCM (dilated cardiomyopathy) (HCC); Anxiety and depression 09/13/2024 Nurse Triage [facility] [address] [phone] Rios Samuel MD from Last 3 Months Allergies Active Allergy Reactions Criticality Noted Date [...] no or minimal response. 2 each 10/29/19 Active fluticasone-ume clidin-vilanter (Trelegy Ellipta) 200-62.5-25 mcg inhaler Inhale 1 puff daily 30 each 12/07/19 Active spironolactone (ALDACTONE) 25 mg tablet Take 1 tablet (25 mg total) by mouth daily 30 tablet 12/07/19 Active rivaroxaban (XARELTO) 20 mg tabletIndicatio ns:Paroxysmal atrial fibrillation (HCC) Take 1 tablet (20 mg total) by mouth daily with dinner 30 tablet 12/07/19 Active metoprolol XL (TOPROL-XL) 100 mg 24 hr tablet Take 1 tablet (100 mg total) by mouth daily 30 tablet 12/07/19 Active lisinopriL (PRINIVIL,ZESTR IL) 5 mg tablet Take 1 tablet (5 mg total) by mouth daily 30 tablet 12/07/19 025 Active gabapentin (NEURONTIN) 300 mg capsuleIndicati ons:Numbness and tingling of lower extremity,Sciat ic nerve pain, left Take 1 capsule (300 mg total) by mouth 3 (three) times a day 90 capsule 12/07/19 025 Active digoxin (LANOXIN) 125 mcg (0.125 mg) tablet Take 1 tablet (125 mcg total) by mouth daily 30 tablet 12/07/19 025 Active tamsulosin (FLOMAX) 0.4 mg extended release capsule Take 2 capsules (0.8 mg total) by mouth daily with dinner 01/01/20 025 Active albuterol HFA (PROVENTIL HFA,VENTOLIN HFA,PROAIR [...] 07/04/2024 Assessment & Plan (10/27/2024 8:57 PM UNDERGROUND PRODUCTION FOREPERSON): Not well controlled; patient reports recent use of fentanyl; has sensation if currently breathing better, likely opioid side effects of decreasing oxygen Recommend discontinuing fentanyl; continue Suboxone 8 mg q.i.d. Assessment & Plan (09/29/2024 1:23 PM UNDERGROUND PRODUCTION FOREPERSON): Stable, well controlled; no use of any fentanyl; no desire to use Good relief with medications Continue buprenorphine 8 mg q.i.d. 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 Cramping and weakness in legs, poss iron deficiency. - Check for anemia, vitamin/electrolyte deficiencies - Resume supplementation, encouraged increased po nutritional intake - Suspect underlying PVD, 1+ PD and PT pulses, check arterial dopplers. DCM (dilated cardiomyopathy) 10/26/2023 Assessment & Plan (09/29/2024 1:24 PM UNDERGROUND PRODUCTION FOREPERSON): No peripheral edema, last echo demonstrated global [...] 10/10/2023 Assessment & Plan (10/27/2024 8:57 PM UNDERGROUND PRODUCTION FOREPERSON): Stable, patient reports some improvement in cognition; though has acute worsening due to recent fentanyl use Assessment & Plan (06/13/2024 3:34 PM CDT): Stable, low Dr.; has some forgetfulness and difficulty with organization [...] supplements Assessment & Plan (11/17/2023 2:51 PM UNDERGROUND PRODUCTION FOREPERSON): Not well controlled, patient continues to have some confusion, difficulty with focus and concentration; unclear if related to multiple prolonged hospitalizations verses prolonged encephalopathy Will continue to monitor, encouraged continued alcohol cessation Alcohol abuse 10/10/2023 Elevated brain natriuretic peptide (BNP) level 0 10/10/2023 New onset of congestive heart failure 10/10/2023 Assessment & Plan (07/28/2024 1:27 PM UNDERGROUND PRODUCTION FOREPERSON): Stable, no significant peripheral edema; has some shortness of breath, unclear if related to COPD versus heart failure; will continue to optimize medications to reduce symptoms Normocytic anemia 10/09/2023 Thrombocytosis 10/09/2023 Acute systolic congestive heart failure 10/09/19 24 Assessment & Plan (05/27/2024 3:55 PM CDT): [...] daily Assessment & Plan (11/17/2023 2:51 PM UNDERGROUND PRODUCTION FOREPERSON): Stable, well controlled; no significant peripheral edema, LVEF was 40%, global systolic dysfunction; may be alcohol related heart disease Continue lisinopril 5 mg daily, metoprolol 100 mg daily, spironolactone 25 mg daily; may benefit from SGLT2 inhibitor Assessment & Plan (11/07/2023 5:41 PM UNDERGROUND PRODUCTION FOREPERSON): - TTE (09/24/23)- mild LV systolic dysfunction; [...] daily Assessment & Plan (11/17/2023 2:50 PM UNDERGROUND PRODUCTION FOREPERSON): Stable, rate controlled; no major side effects associated with medication Continue digoxin 125 mcg daily, Xarelto 20 mg daily, metoprolol 100 mg daily Moderate protein-calorie malnutrition 12/03/2022 Assessment & Plan (07/28/2024 1:27 PM UNDERGROUND PRODUCTION FOREPERSON): Stable, improving; patient reports improving appetite, though still typically only eats 1 meal per day; encouraged patient to take meal supplements between meals are in replacement if he is not currently eating rare Pristiq Continue mirtazapine 15 mg nightly Assessment & Plan (11/07/2023 5:44 PM UNDERGROUND PRODUCTION FOREPERSON): - Optimize diet, eat at least 3 [...] t.i.d. Assessment & Plan (11/07/2023 5:44 PM UNDERGROUND PRODUCTION FOREPERSON): - Start gabapentin 300 mg TID Alcohol dependence with withdrawal 01/16/2022 Assessment & Plan (10/27/2024 8:56 PM UNDERGROUND PRODUCTION FOREPERSON): Not well controlled; patient reports recent use of alcohol, 1 pt for several days; patient reports use was related to wanting to limits withdrawal symptoms Recommend continued cessation of all alcohol given history of cardiomyopathy likely secondary to alcohol use Assessment & Plan (09/29/2024 1:23 PM UNDERGROUND PRODUCTION FOREPERSON): Not well controlled; patient reports he has returned to drinking; drinking daily, though reports he has been drinking less than he used to; encourage work towards complete cessation; returned to regular meetings, especially with ability to distract patient from desire to drink Assessment & Plan (07/19/2024 3:16 PM UNDERGROUND PRODUCTION FOREPERSON): Stable, has been alcohol and drug-free since hospitalization; starting to attend AA meetings Encouraged continued engagement with Peer recovery operator helper, mutual support groups to maintain sobriety Continue [...] from alcohol; would encourage follow-up with peer recovery operator helper; engagement mutual support Assessment & Plan (12/17/2023 4:03 PM CDT): Stable, improving; last use of alcohol was around October 29 Patient continues to work on complete cessation of alcohol use Continue treatment buprenorphine to help reduce cravings and desire for other substances and encourage abstinence Assessment & Plan (11/17/2023 2:50 PM UNDERGROUND PRODUCTION FOREPERSON): Stable, generally well controlled; patient reports required [...] meetings, as well as individual counseling peer recovery operator helper Assessment & Plan (12/22/2022 12:07 PM CDT): Not well controlled; patient reports m issing alcohol; no current recovery engagement; unsure if he needs it, but does have people who can accompany him Previously drinking about 1/5 per day; passes by [employer] in every day for work Encouraged continue changes to reduce alcohol use Encouraged counseling with peer recovery operator helper Will evaluate opportunities to start other treatment options including naltrexone at future appointments Assessment & Plan (01/16/2022 1:03 AM CDT): Continue CIWA, MV, FA and thiamine. Warm handoff following. Polysubstance abuse 01/16/2022 Assessment & Plan (10/27/2024 8:55 PM UNDERGROUND PRODUCTION FOREPERSON): Not well controlled, patient reports recent use of substances; continue to encourage cessation Assessment & Plan (09/29/2024 1:23 PM UNDERGROUND PRODUCTION FOREPERSON): Check urine drug screen; continues to all:, No use of opioids Assessment & Plan (07/28/2024 1:26 PM UNDERGROUND PRODUCTION FOREPERSON): Stable, generally well controlled, no use of [...] 01/16/2022 Assessment & Plan (09/29/2024 1:24 PM UNDERGROUND PRODUCTION FOREPERSON): Well controlled, has been taking higher doses of sertraline Continue sertraline 200 mg daily Assessment & Plan (07/28/2024 1:28 PM UNDERGROUND PRODUCTION FOREPERSON): Not well controlled, worsening; has sense of [...] on probation for substances; working with counselor [facility] Continue Seroquel 50 mg nightly, topiramate 25 mg b.i.d., sertraline 50 mg daily Assessment & Plan (01/28/2024 1:34 PM CDT): Stable, well controlled Continue sertraline 50 mg daily, quetiapine 150 mg nightly Assessment & Plan (11/07/2023 5:51 PM UNDERGROUND PRODUCTION FOREPERSON): - On seroquel - Meds that were discontinued: clonidine, mirtazapine, duloxetine, and sertraline- continue to hold until evaluated by Dr. Samuel. Assessment & Plan (01/12/2023 5:14 PM CDT): Some improvement with mirtazapine; the patient reports some tolerance Increase mirtazapine to 30 mg daily COPD (chronic obstructive pulmonary disease) 01/2022 Assessment & Plan (10/27/2024 8:56 PM UNDERGROUND PRODUCTION FOREPERSON): Not well controlled; continues to have difficulty with breathing; patient has not been using inhaler frequently; has been using fentanyl to control symptoms related to oxygen hunger Recommend continued use of inhalers for symptom relief Assessment & Plan (07/28/2024 1:27 PM UNDERGROUND PRODUCTION FOREPERSON): Not well controlled; continues episodes of shortness of breaths; currently having productive cough Will start doxycycline; continue Trelegy Ellipta 1 puff daily, albuterol p.r.n. Assessment & Plan (07/19/2024 3:16 PM UNDERGROUND PRODUCTION FOREPERSON): Has been having irritation with limited chest; [...] 01/16/2022 Assessment & Plan (10/27/2024 8:57 PM UNDERGROUND PRODUCTION FOREPERSON): Stable, well controlled, blood pressure at goal Continue lisinopril 5 mg daily, metoprolol 100 mg daily, spironolactone 25 mg Assessment & Plan (07/28/2024 1:26 PM UNDERGROUND PRODUCTION FOREPERSON): Stable, well controlled, blood pressure at goal; [...] daily Assessment & Plan (11/07/2023 5:46 PM UNDERGROUND PRODUCTION FOREPERSON): - BP stable, meds as above Assessment [...] 01/16/2022 Assessment & Plan (07/19/2024 3:17 PM UNDERGROUND PRODUCTION FOREPERSON): Patient continues to have poor appetite; depression; will start mirtazapine 15 mg daily to help with sleep initiation and appetite stimulation Assessment & Plan (01/16/2022 1:04 AM CDT): Patient states he lost 30lbs in 3months unintentionally. Will consult floor clerk for malnutrition assessment. Opioid abuse 01/16/2022 Assessment & Plan (11/17/2023 2:49 PM UNDERGROUND PRODUCTION FOREPERSON): Stable, well controlled; patient reports no current desire to use, tolerating current medication well Continue buprenorphine 8 mg b.i.d. Assessment & Plan (11/07/2023 5:45 PM UNDERGROUND PRODUCTION FOREPERSON): - UDS today - F/up with Dr. [...] Diagnosed Date Resolved Date Aspiration pneumonia 10/13/2023 024 Leg edema, right 10/10/2023 10/16/2023 Pleural effusion 10/10/2023 10/16/2023 Hypokalemia 10/09/2023 10/12/2023 Diarrhea 10/09/2023 10/13/2023 Urinary retention 10/09/2023 10/16/2023 Agitation 10/09/2023 10/16/2023 Acute respiratory failure with hypoxia 10/09/2023 10/09/2023 Moderate malnutrition 01/17/20222022 Delirium tremens 01/17/2022 12/03/2022 Immunizations Immunization Administration Dates Next Due Influenza, Unspecified 10/27/2024(Deferr ed: Patient Refused),07/28/2024(Deferred: Patient Refused),07/14/2024(Deferred: Patient Refused),11/05/2023(Deferred: Patient Refused),08/24/2023(Deferred: Patient Refused),09/14/2022(Deferred: Patient Refused),09/14/2022(Deferred: Patient Refused),06/14/2022(Deferred: Patient Refused),09/14/2021(Deferred: Patient Refused),09/14/2021(Deferred: Patient Refused),06/14/2021(Deferred: Patient Refused) Social History Tobacco Use Types Packs/Day Years Used Date Smoking Tobacco: Every Day Cigarettes 1 15 Tobacco Cessation:Ready to Q uit: Yes; Counseling Given: Not Answered Alcohol Use Standard Drinks/Week Comments Yes 0 (1 standard drink = 0.6 oz pur e alcohol) fifth/day [facility] Utilities Answer Date Recorded In the past 12 months has e [employer], gas, oil, or water [employer] threatened to shut off services in your [...] often do you attend chur ch or church services? Never 07/05/2024 Do you belong to any clubs o r organizations such as congregational groups, unions, fraternal or athletic groups, or [...] place to sleep or slept in a penitentiary (including now)? No 09/24/2023 Housing Stability Vital Sign Answer Jeffrey e Recorded In the last 12 months, was t here a time when you were not able to pay the mortgage or rent on time? No 07/05/2024 In the past 12 months, how m any times have you moved where you were living? 0 07/05/2024 At any time in the past 12 m [facility], were you homeless or living in a penitentiary (including now)? No 07/05/2024 Personal Safety Answer [...] on file Legal Sex Male 4:58 AM UNDERGROUND PRODUCTION FOREPERSON Gender Identity Not on file Sexual Orientation Not on file Last Filed Vital Signs Vital Sign Reading Time Taken Comments Blood Pressure 96/60 10/27/2024 2:43 PM UNDERGROUND PRODUCTION FOREPERSON Pulse 78 10/27/2024 2:43 PM UNDERGROUND PRODUCTION FOREPERSON Temperature 36.7 C (98.1 F) 10/27/2024 2:43 PM UNDERGROUND PRODUCTION FOREPERSON Respiratory Rate 18 10/27/2024 2:43 PM UNDERGROUND PRODUCTION FOREPERSON Oxygen Saturation 94% 10/27/2024 2:4 3 PM UNDERGROUND PRODUCTION FOREPERSON pt hands are cold Inhaled Oxygen Concentration - - Weight 60.8 kg (134 lb) 10/27/2024 2:43 PM UNDERGROUND PRODUCTION FOREPERSON Height 177.8 cm (5' 10 ) 10/27/2024 2:4 3 PM UNDERGROUND PRODUCTION FOREPERSON Body Mass Index 19.23 10/27/2024 2:43 PM UNDERGROUND PRODUCTION FOREPERSON Plan of Treatment Not on file Procedures Procedure Name Priority Date/Time Associated Diagnosis Comments FENTANYL CONFIRMATION, MS URINE Routine 10/25/2024 1:26 PM UNDERGROUND PRODUCTION FOREPERSON Polysubstance abuse (HCC) URINALYSIS, MICROSCOPIC ONLY Routine 10/25/2024 1:26 PM UNDERGROUND PRODUCTION FOREPERSON UTI symptoms DRUGS OF ABUSE SCREEN, URINE WITH REFLEX CONFIRMATION Routine 10/25/2024 1:26 PM UNDERGROUND PRODUCTION FOREPERSON Polysubstance abuse (HCC) BUPRENORPHINE AND NORBUPRENORPHINE, RANDOM, URINE Routine 10/25/2024 1:26 PM UNDERGROUND PRODUCTION FOREPERSON Polysubstance abuse (HCC) URINE CULTURE Routine 10/25/2024 1:26 PM UNDERGROUND PRODUCTION FOREPERSON URINALYSIS AND REFLEX TO MICROSCOPIC AND CULTURE Routine 10/25/2024 1:26 PM UNDERGROUND PRODUCTION FOREPERSON UTI symptoms HEPATITIS B SURFACE ANTIGEN Routine 10/25/2024 1:26 PM UNDERGROUND PRODUCTION FOREPERSON Need for hepatitis B screening test DRUGS OF ABUSE SCREEN, URINE WITH REFLEX CONFIRMATION Routine 09/22/2024 4:34 PM UNDERGROUND PRODUCTION FOREPERSON Polysubstance abuse (HCC) BUPRENORPHINE AND NORBUPRENORPHINE, RANDOM, URINE Routine 09/22/2024 4:34 PM UNDERGROUND PRODUCTION FOREPERSON Polysubstance abuse (HCC) HEPATITIS C ANTIBODY Routine 12/07/2023 3:52 PM CDT Encounter for hepatitis C screening test for low risk patient PSA SCREEN Routine 12/07/2023 3:52 PM CDT Screening PSA (prostate specific antigen) from Last 3 Months or Most Recently Relevant to Health Maintenance Results * Fentanyl Confirmation, Urine (10/25/2024 1:26 PM UNDERGROUND PRODUCTION FOREPERSON) Fentanyl Conf, Ur Does Not Confirm Cutoff 0.3ng/mL Comment:Testing performed by : [facility], [address] [place]., [address] Acetylfentanyl Conf, Ur Does Not Confirm Cutoff 1 ng/mL [facility]ERNER CH Comment:Testing performed by : [facility], [address] [place]., [address] Acrylfentanyl Conf, Ur Does Not Confirm Cutoff 1 ng/mL [facility] CH Comment:Testing performed by : [facility], [address] [place]., [address] Furanylfentanyl Conf, Ur Does Not Confirm Cutoff 1 ng/mL [facility] CH Comment:Testing performed by : [facility], [address] [place]., [address] Fentanyl Metabolite (Norfentanyl) Conf, Ur Does Not Confirm CutOff 5 ng/mL [facility] CH Comment:Testing performed by : [facility], [address] [place]., [address] Xylazine MS Does Not Confirm Cutoff 1 ng/mL [facility] Comment: Interpretive Data This test detects the presence or absence of drug compounds using LC Tandem mass spectrometry and is not intended to assess compliance with prescribed medications. While this test is highly specific, false positive and false negative results may occur in very rare circumstances. Contact the laboratory for consultation, if needed. Performance characteristics were determined by the [facility] in a manner consistent with CLIA requirement and has not been cleared or approved by the U.S. Food and Drug Administration. Current interpretive data was last revised 2020. Testing performed by: [facility], [address] [place]., [address] Urine 10/25/2024 1:26 PM UNDERGROUND PRODUCTION FOREPERSON 10/26/2024 3:47 PM UNDERGROUND PRODUCTION FOREPERSON us Rios Samuel MD LAB URINE ORDERABLES Tran killian Result KLESE[facility] [id number] [address] [place] [address] * (ABNORMAL) Drugs of Abuse Screen, Urine with Reflex Confirmation (10/25/2024 1:26 PM UNDERGROUND PRODUCTION FOREPERSON) Amphetamine, ur Not Detected CutOff 500ng/mL Comment: Interpretive Data - Amphetamines: Samples containing greater than 500 ng/mL d-methamphetamine or other cross-reacting amphetamine compounds are reported as positive. Amphetamine immunoassays are subject to significant false positive rates due to cross-reactivity of non-amphetamine drugs. Confirmatory testing required for definitive results. Current Interpretive Data was last reviewed 2023. Barbiturates, ur Not Detected CutOff 200ng/mL CERNER Comment: Interpretive Data - Barbiturates: Samples containing [...] 2024. Methadone, ur Not Detected CutOff 300ng/mL [facility] Comment: Interpretive Data - Methadone: Samples containing greater than 300 ng/mL d,l-methadone or other cross-reacting compounds are reported as positive. False positive and false negative results are possible. Confirmatory testing required for definitive results. Current Interpretive Data was last reviewed 2023. Opiates, ur Not Detected CutOff 300ng/mL [facility] Comment: Interpretive Data - Opiates: Samples containing greater than 300 ng/mL morphine or other cross-reacting compounds are reported as positive. False positive and false negative results are possible. Confirmatory testing required for definitive results. Current Interpretive Data was last reviewed 2023. Oxycodone, ur Not Detected CutOff 100ng/mL [facility] Comment: Interpretive Data - Oxycodone: Samples containing greater than 100 ng/mL oxycodone or other cross-reacting compounds are reported as positive. False positive and false negative results are possible. Confirmatory testing required for definitive results. Current Interpretive Data was last reviewed 2023. Phencyclidine, ur Not Detected CutOff 25 ng/mL [facility] Comment: Interpretive Data - Phencyclidine: Samples containing greater than 25 ng/mL phencyclidine or other cross-reacting compounds are reported as positive. False positive and false negative results are possible. Confirmatory testing required for definitive results. Current Interpretive Data was last reviewed 2023. Urine Creatinine 162 mg/dL [facility] Comment: Interpretive Data Urine Creatinine: < 10 mg/dL is extremely dilute = or > 10 but < 20 mg/dL is dilute = or > 20 mg/dL is normal Current Interpretive Data was last revised on 2017. Urine 10/25/2024 1:26 PM UNDERGROUND PRODUCTION FOREPERSON 10/25/2024 6:57 PM UNDERGROUND PRODUCTION FOREPERSON Narrative [facility] - 10/25/2024 9:56 PM UNDERGROUND PRODUCTION FOREPERSON Drug of Abuse screening is performed by immunoassay for medical purposes only. This is not to be used for Pain Management purposes. If Detected, confirmation testing will be performed for Amphetamines, Cocaine, Fentanyl, Methadone, Opiates, Oxycodone or Phencyclidine. Rios Samuel MD LAB URINE ORDERABLES Tran l Result Performing Organization Address [facility] Co de Phone Number KELSEY [id number] [address] Department [place] [address] * Buprenorphine and Norbuprenorphine, Random, Urine (10/25/2024 1:26 PM UNDERGROUND PRODUCTION FOREPERSON) Pain mgt Buprenorphine, Ur Negative Cutoff: 5.0 ng/mL [facility] Lab Pain mgt Buprenorphine metabolite (Norbuprenorphine), Ur 90.1 Cutoff: 2.5 ng/mL [facility] Comment: ADDITIONAL INFORMATION Testing performed by Liquid Chromatography-Tandem Mass Spectrometry (LC-MS/MS). This test was developed and its performance characteristics determined by [facility] in a manner consistent with CLIA requirements. This test has not been cleared or approved by the U.S. Food and Drug Administration. Test Performed by: [place] [address] Senior Media Buyer: Lyric Coronado Ph.D.; CLIA# [id number] Urine 10/25/2024 1:26 PM UNDERGROUND PRODUCTION FOREPERSON 10/25/2024 6:57 PM UNDERGROUND PRODUCTION FOREPERSON Rios Samuel MD LAB URINE ORDERABLES Tran l Result Performing Organization Address [facility] Co de Phone Number KELSEY SHELL [address] [place] [address] [facility] * (ABNORMAL) Urinalysis reflex to microscopic and culture Urine, clean voided (10/25/2024 1:26 PM UNDERGROUND PRODUCTION FOREPERSON) Color, ur Dorene Yellow Clarity, ur Turbid(A) Clear [facility] Specific gravity, ur 1.022 1.003 - 1.030 [facility] pH, urine 6.5 [facility] Comment: Interpretive Data U rine pH is affected by diet, medications, systemic acid-base disturbances, and renal tubular function. pH may affect urinary stone formation. For example, urine pH below 6.0 may help reduce the tendency for calcium phosphate stones and pH greater than 6.0 may reduce the tendency for uric acid stone formation. Source: [facility] Current Interpretive Data was last revised on 2017 Protein, ur ql Trace Negative [facility] Glucose, ur ql Negative Negative [facility] Ketones, ur Negative Negative [facility] Bilirubin, ur Negative Negative [facility] Blood, ur Negative Negative [facility] Urobilinogen, ur <2.0 <2.0 mg/dL [facility] Nitrite, ur Positive(A) Negative [facility] Leukocyte esterase, ur 4+(A) Negative [facility] UA reflex comment Reflex to microscopic UA will be performed. [facility] Urine, clean voided 10/25/2024 1:26 PM UNDERGROUND PRODUCTION FOREPERSON 10/25/2024 6:57 PM UNDERGROUND PRODUCTION FOREPERSON Rios Samuel MD LAB MICROBIOLOGY - GENERA L ORDERABLES Final Result Performing Organization Address [facility] de Phone Number [facility] [address] [facility] [place] [address] * Hepatitis B Surface Antigen Blood (10/25/2024 1:26 PM UNDERGROUND PRODUCTION FOREPERSON) HepBsAg Nonreactive Nonreactive Blood 10/25/2024 1:26 PM UNDERGROUND PRODUCTION FOREPERSON 10/25/2024 6:57 PM UNDERGROUND PRODUCTION FOREPERSON Rios Samuel MD LAB MICROBIOLOGY - GENERA L ORDERABLES Final Result Performing Organization Address [facility] de Phone Number [facility] [address] [place] [address] * (ABNORMAL) Urinalysis, microscopic only (10/25/2024 1:26 PM UNDERGROUND PRODUCTION FOREPERSON) WBC, ur >50(A) 0 - 5 /HPF RBC, ur 0-2 0 - 2 /HPF [facility] Bacteria, ur 1+(A) CERNER Calcium oxalate crystals, ur 1+(A) [facility] Culture Reflex Comment Reflex to urine culture will be performed. [facility] Urine, clean voided 10/25/2024 1:26 PM UNDERGROUND PRODUCTION FOREPERSON 10/25/2024 6:57 PM UNDERGROUND PRODUCTION FOREPERSON us Rios Samuel MD LAB URINE ORDERABLES Tran maria d Result KELSEY [address] [place] [address] * (ABNORMAL) Urine culture Urine, clean voided (10/25/2024 1:26 PM UNDERGROUND PRODUCTION FOREPERSON) Report Final Report: Greater than or equal to 100,000 colonies/mL of Escherichia coli Greater than or equal to 100,000 colonies/mL of Proteus mirabilis (.) Comment:Testing performed by : [facility], [address] [place]., [address] Organism ESCHERICHIA COLI [facility] Organism PROTEUS MIRABILIS [facility] Urine, clean voided 10/25/2024 1:26 PM UNDERGROUND PRODUCTION FOREPERSON 10/26/2024 12:17 AM UNDERGROUND PRODUCTION FOREPERSON Narrative KELSEY - 10/28/2024 9:32 AM UNDERGROUND PRODUCTION FOREPERSON Urine culture reflexed based upon urinalysis results. Testing performed by [facility] ([phone]) Organism Antibiotic Method Susceptibility Escherichia coli Ampicillin [...] MICROBIOLOGY - GENERA L ORDERABLES Final Result [facility] [address] [facility] [place] [address] * Drugs of Abuse Screen, Urine with Reflex Confirmation (09/22/2024 4:34 PM UNDERGROUND PRODUCTION FOREPERSON) Amphetamine, ur Not Detected CutOff 500ng/mL Comment: Interpretive Data - Amphetamines: Samples containing greater than 500 ng/mL d-methamphetamine or other cross-reacting amphetamine compounds are reported as positive. Amphetamine immunoassays are subject to significant false positive rates due to cross-reactivity of non-amphetamine drugs. Confirmatory testing required for definitive results. Current Interpretive Data was last reviewed 2023. Barbiturates, ur Not Detected CutOff 200ng/mL KELSEY Comment: Interpretive Data - Barbiturates: Samples containing greater than 200 ng/mL secobarbital or other cross-reacting barbiturate compounds are reported as positive. False positive and false negative results are possible. Confirmatory testing required for definitive results. Current Interpretive Data was last reviewed 2023. Benzodiazepines, ur Not Detected CutOff 100ng/mL KELSEY Comment: Interpretive Data - Benzodiazepines: Samples containing greater than 100 ng/mL nordiazepam or other cross-reacting compounds are reported as positive. False positive and false negative results are possible. Confirmatory testing required for definitive results. Current Interpretive Data was last reviewed 2023. Cannabinoids, ur Not Detected CutOff 50 ng/mL KELSEY Comment: Interpretive Data - Cannabinoids: Samples containing greater than 50 ng/mL delta-9 THC -COOH or other cross- reacting compounds are reported as positive. False positive and false negative results are possible. Confirmatory testing required for definitive results. Current Interpretive Data was last reviewed 2023. Cocaine, ur Not Detected CutOff 150ng/mL KELSEY Comment: Interpretive Data - Cocaine: Samples containing greater than 150 ng/mL benzoylecgonine or other cross- reacting compounds are reported as positive. False positive and false negative results are possible. Confirmatory testing required for definitive results. Current Interpretive Data was last reviewed 2023. Fentanyl, Ur Not Detected CutOff 5 ng/mL [facility] Comment: Interpretive Data - Fentanyl: Samples containing greater than 5 ng/mL norfentanyl, fentanyl, or other cross-reacting fentanyl compounds are reported as positive. False positive and false negative results are possible. Confirmatory testing required for definitive results. Current Interpretive Data was last reviewed 2024. Methadone, ur Not Detected CutOff 300ng/mL [facility] Comment: Interpretive Data - Methadone: Samples containing greater than 300 ng/mL d,l-methadone or other cross-reacting compounds are reported as positive. False positive and false negative results are possible. Confirmatory testing required for definitive results. Current Interpretive Data was last reviewed 2023. Opiates, ur Not Detected CutOff 300ng/mL [facility] Comment: Interpretive Data - Opiates: Samples containing greater than 300 ng/mL morphine or other cross-reacting compounds are reported as positive. False positive and false negative results are possible. Confirmatory testing required for definitive results. Current Interpretive Data was last reviewed 2023. Oxycodone, ur Not Detected CutOff 100ng/mL [facility] Comment: Interpretive Data - Oxycodone: Samples containing greater than 100 ng/mL oxycodone or other cross-reacting compounds are reported as positive. False positive and false negative results are possible. Confirmatory testing required for definitive results. Current Interpretive Data was last reviewed 2023. Phencyclidine, ur Not Detected CutOff 25 ng/mL [facility] Comment: Interpretive Data - Phencyclidine: Samples containing greater than 25 ng/mL phencyclidine or other cross-reacting compounds are reported as positive. False positive and false negative results are possible. Confirmatory testing required for definitive results. Current Interpretive Data was last reviewed 2023. Urine Creatinine 86 mg/dL [facility] Comment: Interpretive Data Urine Creatinine: < 10 mg/dL is extremely dilute = or > 10 but < 20 mg/dL is dilute = or > 20 mg/dL is normal Current Interpretive Data was last revised on 2017. Urine 09/22/2024 4:34 PM UNDERGROUND PRODUCTION FOREPERSON 09/22/2024 8:28 PM UNDERGROUND PRODUCTION FOREPERSON Narrative [facility] - 09/22/2024 9:21 PM UNDERGROUND PRODUCTION FOREPERSON Drug of Abuse screening is performed by immunoassay for medical purposes only. This is not to be used for Pain Management purposes. If Detected, confirmation testing will be performed for Amphetamines, Cocaine, Fentanyl, Methadone, Opiates, Oxycodone or Phencyclidine. Rios Samuel MD LAB URINE ORDERABLES Tran l Result Performing Organization Address City/[facility] Co de Phone Number KELSEY [address] [employer] [place], [place] [id number] * Buprenorphine and Norbuprenorphine, Random, Urine (09/22/2024 4:34 PM UNDERGROUND PRODUCTION FOREPERSON) [facility] Pain mgt Buprenorphine metabolite (Norbuprenorphine), Ur 1847.4 Cutoff: 2.5 ng/mL [facility] Comment: ADDITIONAL INFORMATION Testing performed by Liquid Chromatography-Tandem Mass Spectrometry (LC-MS/MS). This test was developed and its performance characteristics determined by [facility] in a manner consistent with CLIA requirements. This test has not been cleared or approved by the U.S. Food and Drug Administration. Test Performed by: [facility] [place] [address] Senior Media Buyer: Lyric Coronado Ph.D.; CLIA# [id number] Pain mgt Buprenorphine, Ur 293.9 Cutoff: 5.0 ng/mL [facility] Urine 09/22/2024 4:34 PM UNDERGROUND PRODUCTION FOREPERSON 09/22/2024 8:28 PM UNDERGROUND PRODUCTION FOREPERSON Rios Samuel MD LAB URINE ORDERABLES Tran l Result Performing Organization Address City/[facility] Co de Phone Number KELSEY [address] Department [place], [place] [id number] [place] * (ABNORMAL) PSA screen (12/07/2023 3:52 PM CDT) PSA-Total 6.18(H) <=5.40 ng/mL Comment: Interpretive Data [...] MD LAB BLOOD ORDERABLES Tran l Result Performing Organization Address [facility] de Phone Number [facility] [address] [place] [address] * (ABNORMAL) Hepatitis C antibody [...] 8:51 PM CDT Rios Samuel MD LAB MICROBIOLOGY - GENERA L ORDERABLES Final Result Performing Organization Address [facility] Co de Phone Number [facility] [address] [place] [address] from Last 3 Months or Most Recently Relevant to Health Maintenance Insurance [facility] Advance Directives For more information, please contact: [phone] * Full Code (Latest Code Status on [...] 5:36 PM 12/01/2022 9:30 PM Care Teams Health Manager Relationship Specialty Start Date End Date Rios Samuel MD [address] [place] [address] PCP - General Family Medicine 12/11/22
--- OUTSIDE RECORDS SUMMARY | 2024-11-25 19:11 | XMS_ITS | Encounter Summary ---
Author Organization [facility] Healthcare Address [address] [place] [id number] Care Team Providers Care Biofuels Production Technician Name Role Phone Rios Samuel MD Primary Care Provider [phone] Encounter Details Date Type Department Care Team (Late st Contact Info) Description 11/25/2024 [facility] Initial Eligibility [facility] [address] [place], [place] [phone] Laura Ferreira Social History Tobacco Use Types Packs/Day Years Used Date Smoking Tobacco: Every Day Cigarettes 1 15 Alcohol Use Standard Drinks/Week Comments Yes 0 (1 standard drink = 0.6 oz pur e alcohol) fifth/day [facility] Utilities Answer Date Recorded In the past 12 months has e electric, gas, oil, or water company threatened to shut off services in your [...] often do you attend chur ch or zoroastrianism services? Never 07/05/2024 Do you belong to any clubs o r organizations such as worship groups, unions, fraternal or athletic groups, or [...] place to sleep or slept in a half-way (including now)? No 09/24/2023 Housing Stability Vital Sign Answer Jeffrey e Recorded In the last 12 months, was t here a time when you were not able to pay the mortgage or rent on time? No 07/05/2024 In the past 12 months, how m any times have you moved where you were living? 0 07/05/2024 At any time in the past 12 m [facility], were you homeless or living in a half-way (including now)? 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 Pt &brother are well-known to [facility] Hand[facility] program from several previous admissions & Dr. Samuel. I requested to speak to Pt to complete screening. Pt states he is actively vomiting and would like to call an ambulance to bring him to ED for evaluation for admission. Pt has cardiac hx. Also noted thatPt has opioid & alcohol w/d hx w/significant delirium - has required restraints during admissions. Pt states he may request ambulance to [facility] or [facility]. Pt & brother bothseem confused throughout phone call, requires several prompts and repeat sentences. documented in this encounter Plan of Treatment Not on file documented as of this encounter Visit Diagnoses Not on filedocumented in this encounter Care Teams Biofuels Production Technician Relationship Specialty Start Date End [place] [address] PCP - General Family Medicine 12/11/22 documented as of this encounter
--- OUTSIDE RECORDS SUMMARY | 2024-11-25 19:11 | XMS_ITS | Encounter Summary ---
Author Organization [facility] Healthcare Address [address] [place] [address] Care Team Providers Care Hydraulic Corrugating Machine Operator Name Role Phone Rios Samuel MD Primary Care Provider [phone] Encounter Details Date Type Department Care Team (Late st Contact Info) Description 11/03/2024 Results Follow-Up [facility] [place] [address] [facility] [place] [address] Rios Samuel MD [address] [facility] [place] [address] Social History Tobacco Use Types Packs/Day Years Used Date Smoking Tobacco: Every Day Cigarettes 1 15 Alcohol Use Standard Drinks/Week Comments Yes 0 (1 standard drink = 0.6 oz pur e alcohol) fifth/day [facility] Utilities Answer Date Recorded In the past 12 months has [employer], gas, oil, or water company threatened to [...] often do you attend chur ch or pentecostal services? Never 07/05/2024 Do you belong to any clubs o r organizations such as episcopalian groups, unions, fraternal or athletic groups, or [...] place to sleep or slept in a longterm (including now)? No 09/24/2023 Housing Stability Vital Sign Answer Jeffrey e Recorded In the last 12 months, was t here a time when you were not able to pay the mortgage or rent on time? No 07/05/2024 In the past 12 months, how m any times have you moved where you were living? 0 07/05/2024 At any time in the past 12 m [facility], were you homeless or living in a longterm (including now)? 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
--- OUTSIDE RECORDS SUMMARY | 2024-11-25 19:12 | XMS_ITS | Clinical Summary ---
Author Organization [facility] Address [address] [facility] [place] [address] Care Team Providers Care Orthopedics Pediatric Physician Name Role Phone Unavailable Primary Care Provider Unavailabl e Source Comments [facility],non-owned Affiliates and Associated Physician Practices is amultiple site organization consisting of ambulatory clinics and hospital sitesin [place], [place], [place] and [place]. This disclosure is being madepursuant to the Care Everywhere program and may not contain all information available regarding this patient. Last updated 18.[facility] [employer] Allergies No known active allergies Medications * Be aware that medications may not be up to date on this document. Alwaysverify current medications with the patient. Medication Sig Dispensed Refills Start Date End Date Status Ibuprofen 200 MG CAPS Take by mouth. Active IMITREX 50 MG TABS Take 50 mg by mouth once as needed for Migraine. Active metaxalone (SKELAXIN) 800 MG tablet Take 1 Tab by mouth 3 times daily as needed for Muscle Spasms. 30 0 11/29/2008 Active terazosin (HYTRIN) 1 MG capsule Take 1 Cap by mouth at bedtime. Week 1: 1 tablet nightly. Week 2: 2 tablets nightly. Week 3: 3 tablets nightly 42 0 12/07/2008 Active sumatriptan (IMITREX) 100 MG tablet Take 1 Tab by mouth once as needed for Migraine. 9 5 03/19/2010 Active paroxetine (PAXIL) 10 MG tablet Take 1 Tab by mouth daily. 30 Tab 0 08/12/2010 Active Family History Medical History Relation Name Comments Diabetes Father Heart Failure Father Relation Name Status Comments Father Social History Tobacco Use Types Packs/Day Years Used Date Smoking Tobacco: Every Day Cigarettes 2 30 Alcohol Use Standard Drinks/Week Comments No 0 (1 standard drink = 0.6 oz pur e alcohol) Sex and Gender Information Value Date Recorded Sex Assigned at Not on file Gender Identity Not on file Sexual Orientation Not on file Last Filed Vital Signs Vital Sign Reading Time Taken Comments Blood Pressure 110/70 12/26/2009 4:06 PM CDT Pulse 75 12/26/2009 4:06 PM CDT Temperature 36.8 C (98.3 F) 12/26/2009 4:06 PM CDT Respiratory Rate - - Oxygen Saturation 96% 12/26/2009 4:06 PM CDT Inhaled Oxygen Concentration - - Weight 69.4 kg (153 lb) 12/26/2009 4:06 PM CDT Height 180.3 cm (5' 11 ) 12/26/2009 4:06 PM CDT Body Mass Index 21.34 12/26/2009 4:06 PM CDT Plan of Treatment Health Maintenance Due Date Last Done Comments COLOGUARD (AGES 45-75) - COL ON CA SCREENING 1960 COLON MONITORING 1960 COLONOSCOPY - COLON CA SCREENING 1960 CT COLONOGRAPHY - COLON CA SCREENING 1960 Colorectal Cancer Screening 1960 FIT - COLON CA SCREENING 1960 FLEX SIG - COLON CA SCREENING 1960 LIPID TESTING 1960 HIV SCREENING 1975 HEPATITIS C SCREENING 04/08/1978 DTAP/TDAP/TD VACCINES (1 - Tdap) 1979 PNEUMOCOCCAL VACCINE 50+ (1 of 2 - PCV) 1979 PNEUMOCOCCAL VACCINE (1 of 2 - PCV) 1979 ZOSTER VACCINE (1 of 2) 2010 COVID-19 VACCINE ( - 2023-2 5 season) 2024 INFLUENZA VACCINE (#1) 2024 DEPRESSION SCREENING 09/14/2024 Respiratory Syncytial Virus (RSV) Vaccine Pt: or over 60 yrs (1 - 1-dose 75+ series) 2035 HEPATITIS B VACCINE Aged Out No longe r eligible based on patient's age to complete this topic HIB VACCINE Aged Out No longer eligi ble based on patient's age to complete this topic HPV VACCINE Aged Out No longer eligi ble based on patient's age to complete this topic MENINGOCOCCAL (Group B) VACC INE SHARED DECISION-MAKING Aged Out No longer eligibl e based on patient's age to complete this topic MENINGOCOCCAL GROUPS A/C/Y/W VACCINE Aged Out No longer eligible b ased on patient's age to complete this topic
--- OUTSIDE RECORDS SUMMARY | 2024-11-25 19:12 | XMS_ITS | Encounter Summary ---
Author Organization [facility] Healthcare Address [address] [place] [address] Care Team Providers Care Public Employment Mediator Name Role Phone Rios Samuel MD Primary Care Provider [phone] Velma Peña RN Unavailable [phone] Naheed Mayers LCSW Unavailable Unavaila ble Encounter Details Date Type Department Care Team (Late st Contact Info) Description 09/23/2023 [facility] Enrollment [facility] Warm Hand Off Program [address] [place] [address] Pablito Ochoa Social History Tobacco Use Types Packs/Day Years Used Date Smoking Tobacco: Every Day Cigarettes 1 15 [facility] Utilities Answer Date Recorded In the past 12 months has e electric, gas, oil, or water company threatened to shut off services in your home? No 09/24/2023 Social Connection and Isolat ion Panel [NHANES] Answer Date Recorded In a typical week, how many times do you talk on the phone with family, friends, or neighbors? More than three times a week 09/24/2023 How often do you get togethe r with friends or relatives? More than three times a week 09/24/2023 How often do you attend chur ch or sabianist services? Never 09/24/2023 Do you belong to any clubs o r organizations such as worship groups, unions, fraternal or athletic groups, or school groups? Yes 09/24/2023 How often do you attend meet ings of the clubs or organizations you belong to? More than 4 times per year 09/24/2023 Are you , , di vorced, , never , or living with a partner? Never 09/24/2023 Overall Financial Resource Strain (CARDIA) Answe r Date Recorded How hard is it for you to pa y for the very basics like food, housing, medical care, and heating? Very hard 09/24/2023 PHQ-2 Answer Date Recorded PHQ-2 Total Score (If total score is 3 or more points, staff should administer the PHQ-9) 0 01/12/2023 Hunger Vital Sign Answer Date Recorded Within the past 12 months, y ou worried that your food would run out before you got the money to buy more. Never true 09/24/19 24 Within the past 12 months, t he food you bought just didn't last and you didn't have money to get more. Never true 09/24/2023 PRAPARE - Transportation Answer Date Re corded In the past 12 months, has l ack of transportation kept you from medical appointments or from getting medications? Yes 09/14 In the past 12 months, has l ack of transportation kept you from meetings, work, or from getting things needed for daily living? Yes 09/24/2023 Housing Stability Vital Sign Answer Jeffrey [...] place to sleep or slept in a skilled nursing (including now)? No 09/24/2023 Personal Safety Answer Date Recorded Have you ever been in or are you currently in a harmful physical or emotional relationship or is someone making you feel afraid or unsafe? 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 Gender Identity Not on file Sexual Orientation Not on file documented as of this encounter Last Filed Vital Signs Vital Sign Reading Time Taken Comments Blood Pressure 122/89 09/23/2023 2:12 PM STEEL SPAR OPERATOR Pulse 121 09/23/2023 2:12 PM STEEL SPAR OPERATOR Temperature - - Respiratory Rate - - Oxygen Saturation - - Inhaled Oxygen Concentration - - Weight - - Height - - Body Mass Index - - documented in this encounter Plan of Treatment Not on file documented as of this encounter Visit Diagnoses Not on filedocumented in this encounter Additional Health Concerns Infection Onset Date Last Indicated Resolved Time Diarrhea 10/08/2023 10/08/2023 10/15/2023 9:46 AM STEEL SPAR OPERATOR COVID: Suspected 10/13/2023 10/13/2023 10/13/2023 3:37 AM STEEL SPAR OPERATOR documented as of this encounter Care Teams Public Employment Mediator Relationship Specialty Start Date End Date [place] [address] PCP - General Family Medicine 12/11/22 Velma Peña, RN [address] [place] [address] DR DUNN [address] [place] [id number] Asbestos Shingle Roofer 07/01/24 08/04/24 Naheed Mayers LCSW Chipper Machine Operator 07/05/24 08/17/24 documented as of this encounter
--- OUTSIDE RECORDS SUMMARY | 2024-11-25 19:12 | XMS_ITS | Referral Summary ---
Author Organization [facility] Address [address] [facility] [place] [address] Care Team Providers Care Casing Man Name Role Phone Unavailable Primary Care Provider Unavailabl e Source Comments [facility],non-owned Affiliates and Associated Physician Practices is amultiple site organization consisting of ambulatory clinics and hospital sitesin [place], [place], [place] and [place]. This disclosure is being madepursuant to the Care Everywhere program and may not contain all information available regarding this patient. Last updated 18.[facility] [employer] Allergies No known active allergies Medications * [...] mouth daily. 30 Tab 0 08/12/2010 Active Social History Tobacco Use Types Packs/Day Years [...] 12/26/2009 4:06 PM CDT Plan of Treatment Not on file
--- OUTSIDE RECORDS SUMMARY | 2024-11-25 19:12 | XMS_ITS | Patient Health Record ---
Author Organization [facility] Address [address] [place] [address] Care Team Providers Care Scale Model Maker Name Role Phone Yvonne Majornica Primary Care Provider [phone] Allergies No Known Allergies Reason For Referral No Information Medications Medication SIG (Take, Route, Fr equency, Duration) Notes Start Date End Date Status Mirtazapine 15 MG 1 tablet at bedtime Orally Once a day 08/01/2022 Active Losartan Potassium A ctive Sertraline HCl 100 MG 2 tablet Orally Once a day Active Social History Tobacco Use: Social History Observation Description Date Details (start date - stop date) Current Smoker NA - NA Sex Assigned At : Social History Observation Description Sex Assigned At Male Dont use, Tobacco Use/Smoking Question Answer Notes Are you a current every day smoker Additional Findings: Tobacco User Moderate cigar ette smoker (10-19 cigs/day) Problems Problem Type SNOMED Code ICD Code Onset Dates Problem Status W/U Status Risk Notes Problem Major depressive disorder (937945755) Major depressive disorder (F32.9) Active confirmed Problem Generalized anxiety disorder (64786717) BLANCA (generalized anxiety disorder) (F41.1) Active confirmed Problem Alcohol dependence (33207210) Alcohol dependence (F10.20) Active confirmed Problem Opioid dependence (84148086) Opioid dependence (F11.20) Active confirmed Problem Sedative, 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) Active confirmed Problem Opioid abuse (0997731) Opioid abuse (F11.10) Active confirmed Plan Of Treatment No Information Insurance Providers Payer Name Payer Address Payer Phone Subscriber Number Group Number Insured Name Patient Relationship to Insured Coverage Start Date Coverage End Date [facility] Claims Department [address] [place] [phone] [facility] [id number] Javad Gant Self - patient is the insured 3 MEDICAID [facility] [place] [address] [id number] Javad Gant Self - patient is the insured 1 [employer] [address] [place] [address] [id number] Javad Gant Self - patient is the insured 2 [facility] Claims Department [address] [place] [address] [phone] Javad Gant Self - patient is the insured 3 Medical (General) History Medical History History ICD Code hypertension Surgical History Surgery Date(Month/Year) hernia repair 2015 Hospitalization History Reason Date(Month/Year)
--- OUTSIDE RECORDS SUMMARY | 2024-11-25 19:12 | XMS_ITS | Patient Health Summary ---
Author Organization [facility] Address [address] [facility] [place] [address] Care Team Providers Care Parachute Mender Name Role Phone Unavailable Primary Care Provider Unavailabl e Note from [facility],non-owned Affiliates and Associated Physician Practices is amultiple site organization consisting of ambulatory clinics and hospital sitesin [place], [place], [place] and [place]. This disclosure is being madepursuant to the Care Everywhere program and may not contain all information available regarding this patient. Last updated 18.[facility] Allergies No known active allergies Medications * Be aware that medications may not be up to date on this document. Alwaysverify current medications with the patient. * Ibuprofen 200 MG CAPS Take by mouth. * IMITREX 50 MG TABS Take 50 mg by mouth once as needed for Migraine. * metaxalone (SKELAXIN) 800 MG tablet(Started 11/29/2008) Take 1 Tab by mouth 3 times daily as needed for Muscle Spasms. * terazosin (HYTRIN) 1 MG capsule(Started 12/07/2008) Take 1 Cap by mouth at bedtime. Week 1: 1 tablet nightly. Week 2: 2 tablets nightly. Week 3: 3 tablets nightly * sumatriptan (IMITREX) 100 MG tablet(Started 03/19/2010) Take 1 Tab by mouth once as needed for Migraine. 5 refills left * paroxetine (PAXIL) 10 MG tablet(Started 08/12/2010) Take 1 Tab by mouth daily. Social History Tobacco Use Types Packs/Day Years [...] Mass Index 21.34 12/26/2009 4:06 PM CDT Procedures * CHLAMYDIA + GC AMPLIFIED PROBE(Performed 12/26/2009) Performed for Exposure to Sexually Transmitted Disease (STD) * RPR W REFLEX CONFIRM(Performed 12/26/2009) Performed for Exposure to Sexually Transmitted Disease (STD) * URINE MICROSCOPIC ONLY(Performed 12/06/2008) Performed for Dysuria * UA/M W REFLEX CULTURE(Performed 12/06/2008) Performed for Dysuria Results * CHLAMYDIA + GC DNA PROBE AMPLIFIED (12/26/2009 5:05 PM CDT) Chlamydia BRITTNY Urine Negative Negative [facility] ACCOUNT BILL GC BRITTNY Urine Negative Negative [facility] ACCOUNT BILL Please Note [facility] ACCOUNT BILL Comment: Acceptable specimens for this test are male urethral swab, endocervical swab and liquid based pap specimens, vaginal swabs in APTIMA transports and first void urine. See online Directory of Services for test number for rectal and pharyngeal specimens. URINE / Unknown 12/26/2009 5 :05 PM CDT 12/26/2009 10:41 PM CDT Narrative Resulting Agency Comment [facility] [address] [facility] [id number] Kyle Frye MD LAB - MICROBIOLOGY O RDERABLES [facility] ACCOUNT BILL * RPR W REFLEX CONFIRM (12/26/2009 4:42 PM CDT) RPR Non Reactive Non Reactive [facility] ACCOUNT BILL BLOOD SPECIMEN / Unknown 12/26/2009 4:42 PM CDT 12/26/2009 9:20 PM CDT Narrative Resulting Agency Comment [facility] [address] [facility] [id number] Kyle Frye MD LAB - CHEMISTRY ORDE BA Performing Organization Address City/[facility]/ZIP Co de Phone Number [facility] ACCOUNT BILL * (ABNORMAL) UA/M W REFLEX CULTURE (PO REF LAB) (12/06/2008 12:36 PM CDT) Urinalysis Gross Exam [facility] ACCOUNT BILL Specific Ono UA 1.022 1.005 - 1.030 [facility] ACCOUNT BILL pH UA 7.0 5.0 - 7.5 [facility] ACCOUNT BILL Color UA Yellow Yellow [facility] ACCOUNT BILL Appearance Cloudy(A) Clear [facility] ACCOUNT BILL Leukocyte UA Negative Negative [facility] ACCOUNT BILL Protein UA Negative Negative/Tra ce [facility] ACCOUNT BILL Glucose UA Negative Negative [facility] ACCOUNT BILL Ketone UA Negative Negative [facility] ACCOUNT BILL Occult Blood Urine Negative Negative [facility] ACCOUNT BILL Bilirubin UA Negative Negative [facility] ACCOUNT BILL Urobilinogen 0.2 0.0 - 1.9 mg/dL [facility] ACCOUNT BILL Nitrite UA Negative Negative [facility] ACCOUNT BILL Microscopic Examination Urine See below: [facility] ACCOUNT BILL Microscopic Examination Urine NOT AVAIL. [facility] ACCOUNT BILL Urinalysis Reflex [facility] ACCOUNT BILL Comment:This specimen will n ot reflex to a Urine Culture. URINE / Unknown 12/06/2008 1 2:36 PM CDT 12/06/2008 5:24 PM CDT Narrative [facility] ACCOUNT BILL - 12/07/2008 6:09 AM CDT Additional Result Information MICROSCOPIC EXAMINATION URINE ([facility]): RESULT NOT AVAILABLE Resulting Agency Comment [facility] [address] [facility] [id number] Kyle Frye MD LAB - URINE CHEMISTR Y ORDERABLES [facility] ACCOUNT BILL * (ABNORMAL) URINALYSIS MICROSCOPIC ONLY (12/06/2008 12:36 PM CDT) WBC UA None seen 0 - 5 /hpf [facility] ACCOUNT BILL RBC UA 0-3 0 - 3 /hpf [facility] ACCOUNT BILL Epithelial Cells (non renal) None seen 0 - 10 /hpf [facility] ACCOUNT BILL Epithelial Cells (renal) NOT AVAIL. [facility] ACCOUNT BILL Casts ua NOT AVAIL. [facility] ACCOUNT BILL Casts UA NOT AVAIL. [facility] ACCOUNT BILL Crystals UA Present(A) N/A [facility] ACCOUNT BILL Crystals UA Amorphous Sediment N/A [facility] ACCOUNT BILL Mucus UA NOT AVAIL. [facility] ACCOUNT BILL Bacteria UA None seen None seen/Few [facility] ACCOUNT BILL Yeast UA NOT AVAIL. [facility] ACCOUNT BILL Sperm UA NOT AVAIL. [facility] ACCOUNT BILL Trichomonas UA NOT AVAIL. [facility] ACCOUNT BILL Comment Urine NOT AVAIL. [facility] ACCOUNT BILL 12/06/2008 12:3 6 PM CDT 12/06/2008 5:24 PM CDT Narrative [facility] ACCOUNT BILL - 12/07/2008 6:09 AM CDT Additional Result Information EPITHELIAL CELLS (RENAL) /HPF URINE ([facility]): RESULT NOT AVAILABLE CASTS /LPF URINE ([facility]): RESULT NOT AVAILABLE CAST TYPE URINE ([facility]): RESULT NOT AVAILABLE MUCUS THREADS URINE ([facility]): RESULT NOT AVAILABLE YEAST URINE ([facility]): RESULT NOT AVAILABLE SPERM URINE ([facility]): RESULT NOT AVAILABLE TRICHOMONAS URINE ([facility]): RESULT NOT AVAILABLE COMMENT URINE ([facility]): RESULT NOT AVAILABLE Resulting Agency Comment [facility] [address] [id number] Kyle Frye MD LAB - URINALYSIS ORD ERABLES [facility] ACCOUNT BILL
--- OUTSIDE RECORDS SUMMARY | 2024-11-25 19:12 | XMS_ITS | Encounter Summary ---
Author Organization [facility] Healthcare Address [address] [place] [address] Care Team Providers Care Rope Silica Machine Operator Name Role Phone Rios Samuel MD Primary Care Provider [phone] Velma Peña RN Unavailable [phone] Naheed Mayers LCSW Unavailable Unavaila ble Encounter Details Date Type Department Care Team (Late st Contact Info) Description 10/30/2023 Documentation [facility] Warm Hand Off Program [address] [place] [address] Laura Ferreira Social History Tobacco Use Types Packs/Day Years Used Date Smoking Tobacco: Every Day Cigarettes 1 15 [facility] Utilities Answer Date Recorded In the past 12 months has [employer] electric, gas, oil, or water company threatened [...] often do you attend chur ch or temple services? Never 09/24/2023 Do you belong to any clubs o r organizations such as sikhism groups, unions, fraternal or athletic groups, or [...] in a penitentiary (including now)? No 09/24/2023 Personal Safety Answer Date Recorded Have you ever been in or are you currently in a harmful physical or emotional relationship or is someone making you feel afraid or unsafe? Denies 09/24/2023 Education Answer Date Recorded What is the highest level of school you have completed or the highest degree you have received? 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 Gender Identity Not on file Sexual Orientation Not on file documented as of this encounter Plan of Treatment Not on file documented as of this encounter Visit Diagnoses Not on filedocumented in this encounter Care Teams Rope Silica Machine Operator Relationship Specialty Start Date End [place] [address] PCP - General Family Medicine 12/11/22 Velma Peña, RN [address] [place] [address] DR DUNN [address] [place] [id number] Book Publisher 07/01/24 08/04/24 Naheed Mayers, SOFTLINES SUPERVISOR Sustainable Design Coordinator 07/05/24 08/17/24 documented as of this encounter
[2024-11-25] MEDS: SODIUM CHLORIDE 0.9% IV 1,000 ML 999 ML IV CONT ×3 (19:28→22:48)
[2024-11-25] MEDS: ONDANSETRON INJ 4 MG/2 ML VIAL IV PUSH ×2 (19:30→21:58)
[2024-11-25] MEDS: METOPROLOL TARTRATE INJ 5 MG/5 ML VIAL IV PUSH ×3 (19:32→21:55)
--- NOTE | 2024-11-25 19:39 | ED.OVERDOSE ---
HPI - Overdose General Chief Complaint: Overdose Stated Complaint: overdose Time Seen by Provider: 11/25/24 18:24 History of Present Illness HPI Narrative: 64-year-old male with a past medical history including atrial fibrillation, COPD, chronic alcohol and opiate abuse, congestive heart failure. Patient presents to the emergency department today with an opiate overdose. He was found at home after a wellness check with police arrival. Patient was administered a total 6 mg of intravenous Narcan by EMS with return of mentation and spontaneous breathing. Found to be tachycardic in the 180s, diaphoretic, nauseous and vomiting. Patient admits to using fentanyl into his venous system earlier today with left upper extremity injection. Previously on Suboxone for long time. Endorses alcohol use today but no other substances aside from fentanyl. No headache, vision changes, chest pain, shortness a breath. He states he has a history of heart failure and AFib, not taking his medications. On review of the EMR patient has been on metoprolol and Xarelto for rate control and anticoagulation. Patient denies any injury or falls. He was otherwise in his normal state of health. Related Data Home Medications ?Medication ?Instructions ?Recorded ?Confirmed ?Last Taken ?Type albuterol sulfate 90 mcg/actuation 2 puff inhalation DAILY 11/11/23 11/11/23 Unknown History aerosol inhaler buprenorphine 8 mg-naloxone 2 mg 1 tablet sublingual DAILY 11/11/23 11/11/23 Unknown History sublingual tablet gabapentin 300 mg capsule 300 mg PO DAILY 11/11/23 11/11/23 Unknown History losartan 50 mg tablet 50 mg PO DAILY 11/11/23 11/11/23 Unknown History rivaroxaban 20 mg tablet (Xarelto) 20 mg PO DAILY 11/11/23 11/11/23 11/11/23 History umeclidinium 62.5 mcg-vilanterol 1 inh inhalation DAILY 11/11/23 11/11/23 Unknown History 25 mcg/actuation powdr for inhalation (Anoro Ellipta) Allergies Allergy/AdvReac Type Severity Reaction Status Date / Time latex Allergy Unknown Hives Verified 05/12/24 17:43 Review of Systems Review of Systems: As reviewed above in HPI [facility] Past Medical History Medical History Mitral regurgitation Opioid abuse Alcohol abuse Atrial fibrillation COPD (chronic obstructive pulmonary disease) Surgical History Surgical History History of hernia surgery Family History Family History Father Diabetes mellitus Hypertension Acute myocardial infarction Sibling Family history of alcoholism Mother Dementia Social History Social History Smoking status: Current some day smoker Alcohol intake: former Substance use: former Substance use type: other Other substance usage details: October 24 was discharge date from hospital for alcoholism. 2 drinks since Do You Feel Safe in your Home?: Yes Lack of Transportation: YES Lack of Food: Never True Current Housing: I Have Housing Concerned About Future Housing: No Difficulty Paying Gas/Electric Bills: No Difficulty Paying for Meds: No Currently Unemployed: No Education: High School Diploma/GED Difficulty w/ Childcare or Family Care: No Spiritual care concerns: No Exam Narrative: GENERAL: Uncomfortable appearing, mildly tachypneic, not any acute distress. Awake alert answering questions. HEAD: [Normocephalic, atraumatic.] EYES: [PERRLA and EOMI.] ENT: Nares clear, no rhinorrhea or epistaxis. Mucous membranes moist. NECK: Supple. CHEST: Coarse bibasilar breath sounds, no respiratory distress, mild tachypnea HEART: Tachycardic rate, irregular rhythm. No murmur heard. [Normal peripheral pulses.] ABDOMEN: [Soft, nondistended], [nontender], [No rigidity or guarding] EXTREMITIES: Normal range of motion. [No edema.] SKIN: Dirt and grime on his extremities but otherwise warm without any rash NEURO: [No focal deficits]. Alert and oriented [x3.] PSYCH: [Normal mood and affect.] Course Vital Signs Vital signs: Vital Signs Pulse Rate 140 H 11/25/24 18:27 Respiratory Rate 20 11/25/24 18:27 Blood Pressure 138/84 11/25/24 18:27 Pulse Oximetry 92 11/25/24 18:27 Oxygen Delivery Room Air 11/25/24 18:27 Pulse Rate 131 H 11/25/24 21:55 Respiratory Rate 18 11/25/24 21:52 Blood Pressure 128/82 11/25/24 21:52 Pulse Oximetry 97 11/25/24 21:52 Oxygen Delivery Room Air 11/25/24 18:41 Procedures EJ/Peripheral Line Arm R: EJ/Peripheral Line Date: 11/25/24 EJ/Peripheral Line Time: 19:43 Time Out Performed: Yes Skin Cleansed in Sterile Fashion: Yes Ultrasound Guided: Yes Size (gauge): 20 IV Secured and Dressing Applied: Yes Patient Tolerated Procedure: well and no complications MDM - Overdose MDM Narrative Medical decision making narrative: 64-year-old male presenting for opiate overdose with intravenous Narcan administered by EMS. Total 6 mg of Narcan was given approximately 10 minutes prior to arrival to the ED. Patient presently is anxious appearing, nauseous, tachycardic and tachypneic. He denies any chest pain shortness a breath but is tachycardic in the 120s to 180s. Blood pressure within normal limits, no hypoxia. He appears unwell and likely and precipitated withdrawal as he was just using fentanyl. Patient is tachycardic but has a history of atrial fibrillation. Appears to be in rapid ventricular response. Given he is hemodynamically stable his heart rate could be secondary to his acute withdrawal. Will dose him with 5 mg IV Lopressor to see if his heart rate comes down to appropriate range. IV was established with ultrasound guidance in the right upper extremity. He was given a fluid bolus and Zofran and placed on plant operations engineer. Laboratory studies were obtained including toxicological screenings, alcohol level, CBC, CMP. Chest x-ray and EKG ordered. Patient was frequently re-evaluated, did received 2 doses of 5 mg Lopressor with improvement in his heart rate down into the 80s to 90s but he did have rebound back into the 130s. Was given oral dose of his home medications that he has missed including 50 mg of metoprolol and Xarelto. Additional fluid boluses were provided is his laboratory studies show severe dehydration a clinically appears very dry. Patient upon re-evaluation felt significantly improved but still some nausea from the withdrawal. He was provide additional Zofran with improvement. Patient's laboratory studies show hemoconcentration with elevated hemoglobin of 18.1, white count of 14.5 likely concentrated not actually true infection. Normal coagulation panel. Electrolytes show high anion gap, likely combination starvation ketosis and potentially lactic acidosis for which he lactic acid was drawn. Normal glucose. Normal creatinine and elevated BUN consistent with dehydration. Normal LFTs. Urinalysis without any overt convincing infection. Some ketosis and protein consistent with dehydration. Toxicological panel shows he is intoxicated with alcohol of 203. Amphetamines positive but negative UDS otherwise. Fentanyl usually does not show up on UDS however. Negative salicylate and Tylenol. Chest x-ray shows emphysema but no infiltrate. Initial EKG shows AFib RVR consistent with monitor and his pulse rate. Spoke to the hospitalist to accept the patient for an observation admission to the IMU for continued evaluation treatment of his AFib RVR and to monitor him for his opiate withdrawal and overdose requiring high-dose Narcan. Did not receive any additional Narcan while here in the emergency department and presently mentating appropriately without any deficits. Breathing comfortably. Medical Records Attestation: I reviewed the patient's medical records. Lab Data Attestation: I reviewed the patient's lab results. 11/25/24 19:26 11/25/24 19:26 Labs: Lab Results 11/25/24 11/25/24 Range/Units 19:26 20:59 WBC 14.5 H (4.5-10.0) K/mm3 RBC 6.02 (4.6-6.20) M/mm3 Hgb 18.1 H D (14.0-18.0) g/dL Hct 53.9 H (42.0-52.0) % MCV 89.5 (80-100) fl MCH 30.1 (26-34) pg MCHC 33.6 (32-36) g/dl RDW 16.0 H (11.5-14.5) % Plt Count 280 (150-375) k/mm3 MPV 9.6 (7.4-10.4) fl Immature Gran % (Auto) 0.3 (0-0.5) % Neut % (Auto) 79.3 H (45.5-73.1) % Lymph % (Auto) 14.0 L (18.3-44.2) % [place] % (Auto) 6.1 (2.6-8.5) % Eos % (Auto) 0.0 (0-4.4) % Baso % (Auto) 0.3 (0.2-1.2) % Lymph # (Auto) 2.03 (0.9-3.2) K/mm3 [place] # (Auto) 0.9 H (0.1-0.6) K/mm3 Eos # (Auto) 0.0 (0-0.3) K/mm3 Baso # (Auto) 0.0 (0.0-0.1) K/mm3 Abs Immat Gran (auto) 0.05 H (0.00-0.031) K/mm3 Absolute Neuts (auto) 11.5 H (1.3-6.7) K/mm3 Absolute Nucleated RBC 0.000 (0.0-0.012) K/mm3 Nucleated RBC % 0.0 (0.0-0.2) % PT 14.1 (11.1-14.7) Seconds INR 1.0 APTT 27.2 (22.3-36.8) Seconds Sodium 139 (137-145) mmol/L Potassium 3.7 (3.4-5.0) mmol/L Chloride 95 L (98-107) mmol/L Carbon Dioxide 18 L (22-30) mmol/L Anion Gap 26 H (4-12) mmol/L BUN 41 H D (9-20) mg/dL Creatinine 0.97 (0.7-1.3) mg/dL Estim Creat Clear Calc Not Reportable Estimated GFR > 60 (59 - ) Glucose 105 (65-110) mg/dL Calcium 9.1 (8.4-10.2) mg/dL Magnesium 1.9 (1.6-2.3) mg/dL Total Bilirubin 0.9 (0.2-1.3) mg/dL AST 42 (17-59) U/L ALT 28 (6-50) U/L Alkaline Phosphatase 98 (38-126) U/L Total Protein 9.0 H (6.3-8.2) g/dL Albumin 4.8 (3.5-5.1) g/dL Urine Color Yellow (Yellow) Urine Appearance Clear (Clear) Urine pH 5.5 (5.0-9.0) Ur Specific [place] 1.020 (1.001-1.035) Urine Protein 2+ H (Negative) mg/dL Urine Glucose (UA) Negative (Negative) mg/dL Urine Ketones 1+ H (Negative) mg/dL Ur Blood (Man) 1+ H (Negative) Urine Nitrate Positive H (Negative) Urine Bilirubin Negative (Negative) Urine Urobilinogen 0.2 (<2.0) mg/dL Leukocyte Esterase Rfl Trace H (Negative) MEAGHAN/UL Urine RBC 0-2 (0-2) /hpf Urine WBC 6-10 H (0-3) /hpf Ur Squamous Epith Cells None seen (Few) /hpf Urine Bacteria 1+ H /hpf Urine Casts 3-5 Salicylates < 1.0 L (2-20) mg/dL Urine Opiates Screen Negative (Negative) Urine Methadone Screen Negative (Negative) Acetaminophen < 10 L (10-30) ug/mL Ur Barbiturates Screen Negative (Negative) Ur Phencyclidine Scrn Negative (Negative) Ur Amphetamine Screen Positive A (Negative) U Benzodiazepines Scrn Negative (Negative) Urine Cocaine Screen Negative (Negative) U Cannabinoids Screen Negative (Negative) Ethyl Alcohol 203 (<10) mg/dL Imaging Data Attestation: I personally reviewed and interpreted this imaging study as follows: My impression: Impressions Chest X-Ray 11/25/24 19:08 IMPRESSION: Severe centrilobular emphysema without focal infiltrate or effusion. Critical Care Time Critical Care Time Critical Care Time: Yes Total Critical Care Time: 75 Discharge Plan Discharge Clinical Impression: Atrial fibrillation with rapid ventricular response, Opiate overdose, Opiate withdrawal, Acute dehydration Patient Disposition: Still a Patient Condition: Stable Patient Language: Malaysian Prescriptions: No Action losartan 50 mg tablet 50 mg PO DAILY gabapentin 300 mg capsule 300 mg PO DAILY albuterol sulfate 90 mcg/actuation HFA aerosol inhaler 2 puff INHALATION DAILY buprenorphine-naloxone 8-2 mg tablet, sublingual 1 tablet SUBLINGUAL DAILY Xarelto 20 mg tablet 20 mg PO DAILY Anoro Ellipta 62.5-25 mcg/actuation blister with device 1 inh INHALATION DAILY naloxone [Narcan] 4 mg/actuation spray,non-aerosol 4 mg intranasal Q2M PRN (Reason: opioid overdose) Qty: 2 0RF Rx Instructions: spray 1 dose into ONE nostril; alternate nostrils w each dose until help arrives spironolactone 25 mg tablet 12.5 mg PO DAILY Qty: 30 1RF furosemide 40 mg Tablet 40 mg PO DAILY Qty: 30 1RF metoprolol succinate 50 mg Tablet Extended Release 24 Hr 50 mg PO QAM Qty: 30 1RF thiamine HCl (vitamin B1) [Vitamin B-1] 100 mg Tablet 100 mg PO QAM Qty: 30 0RF folic acid 1 mg Tablet 1 mg PO DAILY Qty: 30 0RF Follow-up/Referrals: Lizzie,MD Rios [Primary Care Provider] - Time of Disposition: 22:47
[2024-11-25 19:52] LABS: Basophils Percent Auto 0.3 % (0.2-1.2); Hematocrit 53.9 % (42.0-52.0); Hemoglobin 18.1 g/dL (14.0-18.0); Immature Granulocyte Absolute 0.05 K/mm3 (0.00-0.031); Immature Granulocyte Percent A 0.3 % (0-0.5); Lymphocytes Absolute Auto 2.03 K/mm3 (0.9-3.2); Mean Corpuscular HGB Conc 33.6 g/dl (32-36); Mean Corpuscular Hemoglobin 30.1 pg (26-34); Mean Corpuscular Volume 89.5 fl (80-100); Mean Platelet Volume 9.6 fl (7.4-10.4); Monocytes Absolute Auto 0.9 K/mm3 (0.1-0.6); Monocytes Percent Auto 6.1 % (2.6-8.5); Neutrophils Absolute Auto 11.5 K/mm3 (1.3-6.7); Neutrophils Percent Auto 79.3 % (45.5-73.1); Platelet Count Result 280 k/mm3 (150-375); Red Blood Count 6.02 M/mm3 (4.6-6.20); White Blood Count 14.5 K/mm3 (4.5-10.0)
[2024-11-25 20:03] LABS: Acetaminophen < 10 ug/mL (10-30); Ethanol 203 mg/dL (<10); Partial Thromboplastin Time 27.2 Seconds (22.3-36.8); Prothrombin Time 14.1 Seconds (11.1-14.7); Salicylate < 1.0 mg/dL (2-20)
[2024-11-25 20:05] LABS: Alanine Aminotransferase 28 U/L (6-50); Albumin Level 4.8 g/dL (3.5-5.1); Alkaline Phosphatase 98 U/L (38-126); Anion Gap 26 mmol/L (4-12); Aspartate Amino Transferase 42 U/L (17-59); Bilirubin,Total 0.9 mg/dL (0.2-1.3); Blood Urea Nitrogen 41 mg/dL (9-20); Calcium 9.1 mg/dL (8.4-10.2); Carbon Dioxide 18 mmol/L (22-30); Chloride 95 mmol/L (98-107); Estimated Glomerular Filt Rate > 60; Glucose 105 mg/dL (65-110); Magnesium 1.9 mg/dL (1.6-2.3); Potassium 3.7 mmol/L (3.4-5.0); Sodium 139 mmol/L (137-145)
--- NOTE | 2024-11-25 20:56 | PC.NURSE ---
Patiet unable to provide urine sample despite multiple attempts with urinal.
[2024-11-25 21:17] LABS: Add Urine Microscopic? YES; Appearance Urine Clear (Clear); Bacteria Urine 1+ /hpf; Bilirubin Urine Negative (Negative); Blood Urine 1+ (Negative); Color Urine Yellow (Yellow); Glucose Urine UA Negative (Negative); Ketones Urine 1+ mg/dL (Negative); Leukocyte Esterase Ur Trace LEU/UL (Negative); Nitrate Urine Positive (Negative); Protein Urine 2+ mg/dL (Negative); RBC Urine 0-2 /hpf (0-2); Squamous Epithelial Cell Urine None Seen /hpf (Few); Urobilinogen Urine 0.2 mg/dL (<2.0); pH Urine 5.5 (5.0-9.0)
[2024-11-25 21:30] LABS: Amphetamine Screen Urine Positive (Negative); Barbiturate Screen Urine Negative (Negative); Benzodiazepines Screen Urine Negative (Negative); Cannabinoid Screen Urine Negative (Negative); Cocaine Screen Urine Negative (Negative); Methadone Screen Urine Negative (Negative); Opiate Screen Urine Negative (Negative); Phencyclidine Screen Urine Negative (Negative)
--- NOTE | 2024-11-25 22:32 | PC.NURSE ---
Patient to BR via wheelchair with tech. Pt tolerated well. Pt returned to monitor and bed alarm.
[2024-11-25] MEDS: RIVAROXABAN 20 MG TABLET PO (23:37)
[2024-11-25] MEDS: METOPROLOL SUCCINATE EXT REL 50 MG TABCR PO (23:37)
[2024-11-26] VITALS (32 sets, daily range): BP systolic 110–159; BP diastolic 72–110; PULSE 58–129; RESP 16–37; TEMP 36.6–37.9; O2SAT 88–97; BMI 18.3
[2024-11-26 00:26] LABS: Anion Gap 22 mmol/L (4-12); Blood Urea Nitrogen 37 mg/dL (9-20); Calcium 7.7 mg/dL (8.4-10.2); Carbon Dioxide 14 mmol/L (22-30); Chloride 102 mmol/L (98-107); Estimated CRCL calculation 84 ml/min; Estimated Glomerular Filt Rate > 60; Glucose 106 mg/dL (65-110); Potassium 4.2 mmol/L (3.4-5.0); Sodium 138 mmol/L (137-145)
[2024-11-26 01:00] LABS: Lactic Acid Reflex 4.9 mmol/L (0.7-2.0)
--- NOTE | 2024-11-26 01:11 | ADMGEN ---
This patient, Javad Gant, was admitted to IMU Room 205-01 on 11/26/24 at 0107. Patient/family oriented to hospital policies and general routines including ID bracelet, bed and alarms, visiting hours, pain management, procedures, bathroom and other care routines, personal items, smoking policy, room service/diet, and visiting hours. Information on how to activate the Rapid Response Team has been discussed. Patient/Family are encouraged to report perceived risks to care and to ask questions if they do not understand what they are told or what they should do.
[2024-11-26] MEDS: SODIUM BICARBONATE 8.4% 150 MEQ in DEXTROSE 5% 1,000 ML 950 ML 100 MEQ IV CONT (01:50)
[2024-11-26 02:09] LABS: Reflex Lactic Acid Yes or No Add Lactic
[2024-11-26 02:41] LABS: Basophils Percent Auto 0.1 % (0.2-1.2); Hematocrit 46.8 % (42.0-52.0); Hemoglobin 15.9 g/dL (14.0-18.0); Immature Granulocyte Absolute 0.04 K/mm3 (0.00-0.031); Immature Granulocyte Percent A 0.3 % (0-0.5); Lymphocytes Percent Auto 8.9 % (18.3-44.2); Mean Corpuscular Hemoglobin 30.6 pg (26-34); Mean Corpuscular Volume 90.2 fl (80-100); Mean Platelet Volume 9.3 fl (7.4-10.4); Monocytes Absolute Auto 0.8 K/mm3 (0.1-0.6); Monocytes Percent Auto 5.9 % (2.6-8.5); Neutrophils Absolute Auto 11.4 K/mm3 (1.3-6.7); Neutrophils Percent Auto 84.8 % (45.5-73.1); Platelet Count Result 201 k/mm3 (150-375); Red Blood Count 5.19 M/mm3 (4.6-6.20); Red Cell Distribution Width 15.6 % (11.5-14.5); White Blood Count 13.4 K/mm3 (4.5-10.0)
[2024-11-26 02:54] LABS: Lactic Acid 3.9 mmol/L (0.7-2.0)
[2024-11-26 02:55] LABS: Alanine Aminotransferase 26 U/L (6-50); Alkaline Phosphatase 80 U/L (38-126); Anion Gap 17 mmol/L (4-12); Aspartate Amino Transferase 36 U/L (17-59); Bilirubin,Total 0.8 mg/dL (0.2-1.3); Blood Urea Nitrogen 38 mg/dL (9-20); Calcium 8.1 mg/dL (8.4-10.2); Carbon Dioxide 17 mmol/L (22-30); Chloride 101 mmol/L (98-107); Estimated CRCL calculation 70 ml/min; Estimated Glomerular Filt Rate > 60; Glucose 154 mg/dL (65-110); Potassium 4.3 mmol/L (3.4-5.0); Sodium 135 mmol/L (137-145)
[2024-11-26] MEDS: dilTIAZem HCl INJ 25 MG/5 ML VIAL 10 MG IV PUSH (03:47)
[2024-11-26] MEDS: dilTIAZem 100 MG/100 ML 100 MG/100 ML BAG IV CONT ×2 (03:52→19:10)
--- NOTE | 2024-11-26 05:17 | PM.IMHP ---
H&P: HPI History of Present Illness Date/Time: 11/26/24 05:17 Chief Complaint: Unintentional Fentanyl overdose Narrative: 64-year-old male with a past medical history of polysubstance abuse, alcohol abuse, tobacco dependence cardiomyopathy, atrial fibrillation and COPD who presented to the ER from home via EMS due to being found unresponsive. Patient has history of fentanyl abuse either snorting or IV injection. He denies history of amphetamine abuse but urine drug screen was also positive for amphetamines. Evidently used fentanyl this morning and overdosed. Someone called for a wellness check and found the patient unresponsive he received 6 mg of IV Narcan with return of mentation and breathing. He was noted to be tachycardic with heart rates in the 180s in the field. After he received Narcan he began having anticipated nausea vomiting as well as diaphoresis. The patient had been treated previously with Suboxone but this had not been refilled since September 22. The patient also has history of heavy alcohol use and was actively intoxicated on arrival to the ER with alcohol level greater than 200. He reports that he drinks at least a pt of whiskey a day The patient had not been taking his medications since at least November 17 but he thinks is been more likely close to 1 month. He reports chronic sinus congestion due to snorting fentanyl. He has had significant sinus drainage but no purulence. He reports that he has been struggling with UTIs on and off since August. Your last treated with Bactrim for UTI in October. He reports chronic sensation of incomplete bladder emptying. At the time my evaluation the patient reported that his bladder was full. He used the urinal but still had over 600 in residual on bladder scan. He has been having dysuria with occasional hematuria. He reports hard time starting his urine stream. He states he does have a history of BPH looks like his Flomax has not been filled since February. Review of Systems Review of Systems: 12 systems were reviewed with pertinent positives and negatives per HPI. Except as documented in the HPI, all other systems were reviewed and are negative. [facility] Past Medical History Medical History (Updated 11/26/24 @ 09:24 by Ginny Zepeda DO) BPH (benign prostatic hyperplasia) Tobacco abuse disorder Cardiomyopathy Mitral regurgitation Opioid abuse Alcohol abuse Atrial fibrillation COPD (chronic obstructive pulmonary disease) Surgical History Surgical History History of hernia surgery Family History Family History Father Diabetes mellitus Hypertension Acute myocardial infarction Sibling Family history of alcoholism Mother Dementia Social History Social History (Updated 11/26/24 @ 07:00 by Ginny Zepeda DO) Social History: The patient lives with his mother. 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 He smoked a pack of cigarettes per day since he was a teenager. He has had difficulty with alcohol dependence since he was young. He reports that he was in recovery for 20 years but started drinking again within the last year. He reports that he was on Suboxone but her started using fentanyl again October 2024. Code status: Full code Surrogate decision maker: Mother Smoking packs per day: 1 Smoking cigarettes per day: 20.0 Years smoked: 20 Smoking pack-years: 20.00 Smoking status: Current every day smoker Tobacco type: cigarettes Alcohol intake: current Substance use: current Substance use type: marijuana and opiates Other substance usage details: Fentanyl IV last use 11/24/24 at 12pm, marijuana last use 11/17/24. Last use: Pt drinks 1/5 whiskey daily. Last drink was on 11/25/24 at 12pm. Do You Feel Safe in your Home?: Yes Lack of Transportation: No Lack of Food: Never True Current Housing: I Have Housing Concerned About Future Housing: No Difficulty Paying Gas/Electric Bills: No Difficulty Paying for Meds: No Currently Unemployed: No Education: High School Diploma/GED Difficulty w/ Childcare or Family Care: No Spiritual care concerns: No Meds Home Medications and Allergies Home Medications ?Medication ?Instructions ?Recorded ?Confirmed ?Type albuterol sulfate 90 mcg/actuation 2 puff inhalation DAILY PRN 11/11/23 11/26/24 History aerosol inhaler shortness of breath or wheezing buprenorphine 8 mg-naloxone 2 mg 1 tablet sublingual DAILY 11/11/23 11/26/24 History sublingual tablet losartan 50 mg tablet 50 mg PO DAILY 11/11/23 11/26/24 History rivaroxaban 20 mg tablet (Xarelto) 20 mg PO DAILY 11/11/23 11/26/24 History umeclidinium 62.5 mcg-vilanterol 1 inh inhalation DAILY 11/11/23 11/26/24 History 25 mcg/actuation powdr for inhalation (Anoro Ellipta) folic acid 1 mg tablet 1 mg PO DAILY #30 tabs 11/15/23 11/26/24 Rx furosemide 40 mg tablet 40 mg PO DAILY #30 tabs 11/15/23 11/26/24 Rx metoprolol succinate 50 mg 50 mg PO QAM #30 tabs 11/15/23 11/26/24 Rx tablet,extended release 24 hr naloxone 4 mg/actuation nasal 4 mg intranasal Q2M PRN opioid 11/15/23 11/26/24 Rx spray (Narcan) overdose #2 ea thiamine HCl (vitamin B1) 100 mg 100 mg PO QAM #30 tabs 11/15/23 11/26/24 Rx tablet (Vitamin B-1) digoxin 125 mcg (0.125 mg) tablet 0.125 mg PO DAILY 11/26/24 11/26/24 History fluticasone fur. 200 mcg-umeclid 1 inh inhalation Q24H 11/26/24 11/26/24 History 62.5 mcg-vilant 25 mcg inhalat.powder (Trelegy Ellipta) gabapentin 300 mg capsule 300 mg PO DAILY 11/26/24 11/26/24 History mirtazapine 15 mg tablet 15 mg PO DAILY 11/26/24 11/26/24 History sertraline 100 mg tablet 100 mg PO DAILY 11/26/24 11/26/24 History spironolactone 25 mg tablet 12.5 mg PO DAILY 11/26/24 11/26/24 History Allergies Allergy/AdvReac Type Severity Reaction Status Date / Time latex Allergy Unknown Hives Verified 11/26/24 01:27 Vital Signs Vital Signs - 24 hr 11/25/24 18:27 11/25/24 18:41 11/25/24 18:41 Temperature Pulse Rate 140 H Respiratory Rate 20 16 Blood Pressure 138/84 Pulse Oximetry 92 95 Oxygen Delivery Room Air Room Air 11/25/24 19:31 11/25/24 19:32 11/25/24 20:24 Temperature Pulse Rate 147 H 154 H 133 H Respiratory Rate 16 28 H Blood Pressure 150/100 H 160/96 H Pulse Oximetry 98 99 Oxygen Delivery 11/25/24 21:11 11/25/24 21:20 11/25/24 21:52 Temperature Pulse Rate 122 H 97 122 H Respiratory Rate 18 Blood Pressure 139/105 H 128/82 Pulse Oximetry 98 97 Oxygen Delivery 11/25/24 21:55 11/25/24 22:40 11/25/24 22:46 Temperature Pulse Rate 131 H 107 H 110 H Respiratory Rate Blood Pressure Pulse Oximetry Oxygen Delivery 11/25/24 23:37 11/26/24 01:10 11/26/24 01:11 Temperature 98.4 F Pulse Rate 108 H 129 H Respiratory Rate Blood Pressure Pulse Oximetry Oxygen Delivery 11/26/24 01:15 11/26/24 01:16 11/26/24 02:00 Temperature 98.3 F Pulse Rate 71 71 123 H Respiratory Rate 18 18 Blood Pressure 156/81 H Pulse Oximetry 94 94 Oxygen Delivery Room Air 11/26/24 03:46 11/26/24 03:52 11/26/24 03:52 Temperature 100.3 F H Pulse Rate 119 H 119 H 119 H Respiratory Rate 16 16 Blood Pressure 156/110 H 156/110 H Pulse Oximetry 95 95 Oxygen Delivery Room Air Exam Narrative: Weight 59.6 kg BMI 18.3 Const: Other: Appears older than stated age, thin body habitus, disheveled HENMT: Other: Mucous membranes are tacky, no oral pharyngeal erythema, poor dentition Eyes: Other: Pupils are equal and reactive, no scleral icterus, no conjunctival pallor Neck: Other: No lymphadenopathy, trachea midline, no JVD Resp: Other: Clear to auscultation bilaterally, no increased work of breathing Cardio: Other: Irregularly irregular, tachycardic, 2+ bilateral radial pedal pulses GI: Other: Soft, hypoactive bowel sounds, markedly distended bladder on palpation : Other: Markedly distended bladder on palpation Skin: Other: Scab to the posterior left hand, scattered bruising to the arms, multiple areas of scarring could be consistent with track ly Neuro: Other: Alert oriented, speech is clear, no facial asymmetry Extrem: Other: No clubbing, cyanosis or edema, Psych: Other: Mildly anxious, restless, otherwise pleasant and cooperative, poor judgment and insight H&P: Results Labs Labs: Short CBC 11/25/24 11/26/24 Range/Units 19:26 02:37 WBC 14.5 H 13.4 H (4.5-10.0) K/mm3 Hgb 18.1 H D 15.9 (14.0-18.0) g/dL Hct 53.9 H 46.8 (42.0-52.0) % Plt Count 280 201 (150-375) k/mm3 BMP 11/25/24 11/26/24 11/26/24 19:26 00:01 02:37 Sodium 139 138 135 L Potassium 3.7 4.2 4.3 Chloride 95 L 102 101 Carbon Dioxide 18 L 14 L 17 L BUN 41 H D 37 H 38 H Creatinine 0.97 0.83 0.78 Glucose 105 106 154 H Calcium 9.1 7.7 L 8.1 L Liver Function 11/25/24 11/26/24 Range/Units 19:26 02:37 Total Bilirubin 0.9 0.8 (0.2-1.3) mg/dL AST 42 36 (17-59) U/L ALT 28 26 (6-50) U/L Alkaline Phosphatase 98 80 (38-126) U/L Albumin 4.8 4.0 (3.5-5.1) g/dL Urine 11/25/24 Range/Units 20:59 Urine Color Yellow (Yellow) Urine Appearance Clear (Clear) Urine pH 5.5 (5.0-9.0) Ur Specific [place] 1.020 (1.001-1.035) Urine Protein 2+ H (Negative) mg/dL Urine Glucose (UA) Negative (Negative) mg/dL Laboratory Tests 11/25/24 11/25/24 11/26/24 19:26 20:59 00:01 WBC 14.5 H RBC 6.02 Hgb 18.1 H D Hct 53.9 H MCV 89.5 MCH 30.1 MCHC 33.6 RDW 16.0 H Plt Count 280 MPV 9.6 Immature Gran % (Auto) 0.3 Neut % (Auto) 79.3 H Lymph % (Auto) 14.0 L [place] % (Auto) 6.1 Eos % (Auto) 0.0 Baso % (Auto) 0.3 Lymph # (Auto) 2.03 Norman # (Auto) 0.9 H Eos # (Auto) 0.0 Baso # (Auto) 0.0 Abs Immat Gran (auto) 0.05 H Absolute Neuts (auto) 11.5 H Absolute Nucleated RBC 0.000 Nucleated RBC % 0.0 PT 14.1 INR 1.0 APTT 27.2 Sodium 139 138 Potassium 3.7 4.2 Chloride 95 L 102 Carbon Dioxide 18 L 14 L Anion Gap 26 H 22 H BUN 41 H D 37 H Creatinine 0.97 0.83 Estim Creat Clear Calc Not Reportable 84 Estimated GFR > 60 > 60 Glucose 105 106 Lactic Acid 4.9 H* Calcium 9.1 7.7 L Magnesium 1.9 Total Bilirubin 0.9 AST 42 ALT 28 Alkaline Phosphatase 98 Total Protein 9.0 H Albumin 4.8 Urine Color Yellow Urine Appearance Clear Urine pH 5.5 Ur Specific [place] 1.020 Urine Protein 2+ H Urine Glucose (UA) Negative Urine Ketones 1+ H Ur Blood (Man) 1+ H Urine Nitrate Positive H Urine Bilirubin Negative Urine Urobilinogen 0.2 Leukocyte Esterase Rfl Trace H Urine RBC 0-2 Urine WBC 6-10 H Ur Squamous Epith Cells None seen Urine Bacteria 1+ H Urine Casts 3-5 Salicylates < 1.0 L Urine Opiates Screen Negative Urine Methadone Screen Negative Acetaminophen < 10 L Ur Barbiturates Screen Negative Ur Phencyclidine Scrn Negative Ur Amphetamine Screen Positive A U Benzodiazepines Scrn Negative Urine Cocaine Screen Negative U Cannabinoids Screen Negative Ethyl Alcohol 203 11/26/24 02:37 WBC 13.4 H RBC 5.19 Hgb 15.9 Hct 46.8 MCV 90.2 MCH 30.6 MCHC 34.0 RDW 15.6 H Plt Count 201 MPV 9.3 Immature Gran % (Auto) 0.3 Neut % (Auto) 84.8 H Lymph % (Auto) 8.9 L Norman % (Auto) 5.9 Eos % (Auto) 0.0 Baso % (Auto) 0.1 L Lymph # (Auto) 1.20 Norman # (Auto) 0.8 H Eos # (Auto) 0.0 Baso # (Auto) 0.0 Abs Immat Gran (auto) 0.04 H Absolute Neuts (auto) 11.4 H Absolute Nucleated RBC 0.000 Nucleated RBC % 0.0 PT INR APTT Sodium 135 L Potassium 4.3 Chloride 101 Carbon Dioxide 17 L Anion Gap 17 H BUN 38 H Creatinine 0.78 Estim Creat Clear Calc 70 Estimated GFR > 60 Glucose 154 H Lactic Acid 3.9 H Calcium 8.1 L Magnesium Total Bilirubin 0.8 AST 36 ALT 26 Alkaline Phosphatase 80 Total Protein 7.0 Albumin 4.0 Urine Color Urine Appearance Urine pH Ur Specific [place] Urine Protein Urine Glucose (UA) Urine Ketones Ur Blood (Man) Urine Nitrate Urine Bilirubin Urine Urobilinogen Leukocyte Esterase Rfl Urine RBC Urine WBC Ur Squamous Epith Cells Urine Bacteria Urine Casts Salicylates Urine Opiates Screen Urine Methadone Screen Acetaminophen Ur Barbiturates Screen Ur Phencyclidine Scrn Ur Amphetamine Screen U Benzodiazepines Scrn Urine Cocaine Screen U Cannabinoids Screen Ethyl Alcohol Impressions Chest X-Ray 11/25/24 19:08 IMPRESSION: Severe centrilobular emphysema without focal infiltrate or effusion. EKG: AFib RVR rate 116 QTC 450 premature ventricular complexes right axis deviation anterior lateral HI age indeterminate All imaging and EKGs personally reviewed and interpreted. And unless stated otherwise agree with radiologic and cardiology interpretation. Assessment and Plan Assessment and plan (1) Atrial fibrillation with rapid ventricular response: Code(s): I48.91 - Unspecified atrial fibrillation Status: Acute (2) Sepsis: Qualifiers: Sepsis type: sepsis due to unspecified organism Sepsis acute organ dysfunction status: without acute organ dysfunction Qualified Code(s): A41.9 - Sepsis, unspecified organism Code(s): A41.9 - Sepsis, unspecified organism Status: Acute (3) Acute dehydration: Code(s): E86.0 - Dehydration Status: Acute (4) Lactic acidosis: Code(s): E87.20 - Acidosis, unspecified Status: Acute (5) BPH with urinary obstruction: Code(s): N40.1 - Benign prostatic hyperplasia with lower urinary tract symptoms; N13.8 - Other obstructive and reflux uropathy Status: Acute (6) Opiate overdose: Qualifiers: Encounter type: initial encounter Injury intent: accidental or unintentional Qualified Code(s): T40.601A - Poisoning by unspecified narcotics, accidental (unintentional), initial encounter Code(s): T40.601A - Poisoning by unspecified narcotics, accidental (unintentional), initial encounter Status: Acute (7) Cardiomyopathy: Qualifiers: Cardiomyopathy type: unspecified Qualified Code(s): I42.9 - Cardiomyopathy, unspecified Code(s): I42.9 - Cardiomyopathy, unspecified Status: Acute (8) Alcohol abuse: Code(s): F10.10 - Alcohol abuse, uncomplicated Status: Acute (9) Tobacco abuse disorder: Code(s): Z72.0 - Tobacco use Status: Acute Plan Patient has sepsis likely due to UTI. Will start patient on Rocephin. Will obtain blood cultures. Urine cultures already obtained and pending. The patient had postvoid residual greater than 600 mL Lua catheter has subsequently been placed. Will start the patient on Flomax. Patient appears to be markedly volume depleted with elevation in hemoglobin of 6 g above his baseline from last year. The patient. Clinically volume depleted with dry mucous membranes as well. He received 30 mL/kilos bolus in the ER and when admission was discussed I recommended 1/3 L bolus which he also received. With bolus patient's heart rate did improve but he still remained in AFib RVR due to medication noncompliance. He was given a dose of his oral metoprolol after he had already received 2 doses of IV Lopressor. His heart rate did improve with medications. However by the time the patient arrived to the IMU he was still having intermittent tachycardia with heart rate up into the 140s. Subsequently patient was placed on a Cardizem drip. Labs did demonstrate marked metabolic acidosis with a serum bicarb of 14 with lactic acidosis and anion gap. The patient was subsequently started on a bicarb drip. Patient has had subsequent improvement in serum bicarb and lactic acidosis. Will resume the patient's home metoprolol. The importance of compliance with medication cold therapy was discussed with patient in detail. The patient does have known history of atrial fibrillation and is tachycardia is likely due to component of dehydration, medication nonadherence and utilization of street drugs and or withdrawal from both opiate and alcohol. The patient had BPH and had urinary retention Lau catheter was placed. Will monitor strict I&O's and daily weights. The patient does have history of opiate dependence with both IV and snorting of fentanyl. Urine drug screen was also positive for amphetamines which is not helping the patient's underlying atrial fibrillation. It patient also is at acutely intoxicated with alcohol but at the time my evaluation he was also diaphoretic and slightly tremulous. The patient is demonstrating early symptoms of alcohol withdrawal and does have heavy daily alcohol use. Patient has been started on thiamin and folic acid supplementation. Will order Ativan based on CIWA scores and will start the patient on scheduled Librium. Care coordination consult has been ordered. Will provide nicotine patch as needed. Will repeat CBC, CMP and lactic acid levels with a.m. labs. 45 minute spent in critical care activities Due to a high probability of clinically significant, life threatening deterioration, the patient required my highest level of preparedness to intervene emergently and I personally spent this critical care time directly and personally managing the patient. This critical care time included obtaining a history; examining the patient; pulse oximetry; ordering and review of studies; arranging urgent treatment with development of a management plan; evaluation of patient's response to treatment; frequent reassessment; and discussions with other providers. It was exclusive of separately billable procedures and treating other patients and teaching time. Please see Assessment and Plan section and the rest of the note for further information on patient assessment and treatment. Quality VTE Prophylaxis VTE prophylaxis: pharmacologic ordered (Resume home Xarelto.) Hospitalist [facility] Advance Care Plan I have confirmed that the patient's Advanced Care Plan is present, code status is documented, or surrogate decision maker is listed in patient medical record.: Yes Medication Reconciliation I have utilized all available resources to obtain, update and review the patients current medications (includes all prescriptions, OTC, herbals, cannabis, and nutritional supplements).: Yes
[2024-11-26] MEDS: LIDOCAINE 2% GEL UROJET 10 ML PKG MUCOUS MEM (07:05)
--- NOTE | 2024-11-26 08:21 | PM.IMPN ---
Progress Note: A&P Assessment and Plan (1) Atrial fibrillation with rapid ventricular response: Code(s): I48.91 - Unspecified atrial fibrillation Status: Acute (2) Sepsis: Code(s): A41.9 - Sepsis, unspecified organism Status: Acute (3) Opiate overdose: Code(s): T40.601A - Poisoning by unspecified narcotics, accidental (unintentional), initial encounter Status: Acute (4) Acute dehydration: Code(s): E86.0 - Dehydration Status: Acute (5) Alcohol abuse: Code(s): F10.10 - Alcohol abuse, uncomplicated Status: Acute (6) Lactic acidosis: Code(s): E87.20 - Acidosis, unspecified Status: Acute (7) Cardiomyopathy: Qualifiers: Cardiomyopathy type: unspecified Qualified Code(s): I42.9 - Cardiomyopathy, unspecified Code(s): I42.9 - Cardiomyopathy, unspecified Status: Acute (8) Tobacco abuse disorder: Code(s): Z72.0 - Tobacco use Status: Acute (9) BPH with urinary obstruction: Code(s): N40.1 - Benign prostatic hyperplasia with lower urinary tract symptoms; N13.8 - Other obstructive and reflux uropathy Status: Acute (10) Opiate withdrawal: Code(s): F11.93 - Opioid use, unspecified with withdrawal Status: Acute (11) Alcohol withdrawal: Code(s): F10.939 - Alcohol use, unspecified with withdrawal, unspecified Status: Acute (12) Atrial fibrillation: Code(s): I48.91 - Unspecified atrial fibrillation Status: Chronic Plan 64-year-old male with a past medical history of polysubstance abuse, alcohol abuse, tobacco dependence cardiomyopathy, atrial fibrillation and COPD who presented to the ER from home via EMS due to being found unresponsive. Patient has history of fentanyl abuse either snorting or IV injection. he received 6 mg of IV Narcan with return of mentation and breathing. He was noted to be tachycardic with heart rates in the 180s in the field. 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 Patient still agitated, diaphoretic Discussed the case with accountant auditor, move patient to ICU for close monitoring and start better diet as for sedation Also provide thiamine folic acid Sepsis Patient is a tachycardia tachypnea, leukocytosis, lactic acidosis, meeting criteria of sepsis UA shows pyuria Pending blood culture urine culture Provide fluid resuscitation Ceftriaxone 1 mg IV daily Complicated UTI Patient has BPH UA showed pyuria Antibiotics see above Pending urine culture AFib RVR Uncontrolled heart rate Likely secondary to alcohol withdrawal, opioid withdrawal, dehydration, infection Start Cardizem drip Continue Xarelto p.o. Continue metoprolol p.o. COPD exacerbation Start bronchodilators Start O2 therapy to keep pulse of 92 Dehydration ELEVATED BUN CREATININE RATIO 41/0.68 Started lactated Ringer IV 100 mL/hour Appreciate accountant auditor consultation, continue monitor patient closely in ICU Subjective Date/time seen: 11/26/24 08:21 Exam Narrative: GENERAL: Ill-appearing, diaphoresis,, in no acute distress. Well-nourished. - EYES: EOMI. Anicteric. - HENT: Moist mucous membranes. - LUNGS: Clear to auscultation bilaterally, no wheezing, rhonchi, or rales. - CARDIOVASCULAR: Irregular irregular rhythm, tachycardia. No murmur. No JVD. - ABDOMEN: Soft, non-tender and non-distended. No palpable masses. - EXTREMITIES: No edema. Peripheral pulses 2+. Non-tender. - NEUROLOGIC: No focal neurological deficits. CN II-XII grossly intact. - PSYCHIATRIC: Somnolent,, Alert and oriented x 3. mood and affect: Agitated. - SKIN: No rashes or lesions. Warm. - LYMPH: No cervical lymphadenopathy. Objective Data Vital Signs Vital Signs: Vital Signs - 24 hr 11/25/24 18:27 11/25/24 18:41 11/25/24 18:41 Temperature Pulse Rate 140 H Pulse Rate [Monitor] Respiratory Rate 20 16 Blood Pressure 138/84 Pulse Oximetry 92 95 Oxygen Delivery Room Air Room Air 11/25/24 19:31 11/25/24 19:32 11/25/24 20:24 Temperature Pulse Rate 147 H 154 H 133 H Pulse Rate [Monitor] Respiratory Rate 16 28 H Blood Pressure 150/100 H 160/96 H Pulse Oximetry 98 99 Oxygen Delivery 11/25/24 21:11 11/25/24 21:20 11/25/24 21:52 Temperature Pulse Rate 122 H 97 122 H Pulse Rate [Monitor] Respiratory Rate 18 Blood Pressure 139/105 H 128/82 Pulse Oximetry 98 97 Oxygen Delivery 11/25/24 21:55 11/25/24 22:40 11/25/24 22:46 Temperature Pulse Rate 131 H 107 H 110 H Pulse Rate [Monitor] Respiratory Rate Blood Pressure Pulse Oximetry Oxygen Delivery 11/25/24 23:37 11/26/24 01:10 11/26/24 01:11 Temperature 98.4 F Pulse Rate 108 H 129 H Pulse Rate [Monitor] Respiratory Rate Blood Pressure Pulse Oximetry Oxygen Delivery 11/26/24 01:15 11/26/24 01:16 11/26/24 02:00 Temperature 98.3 F Pulse Rate 71 71 123 H Pulse Rate [Monitor] Respiratory Rate 18 18 Blood Pressure 156/81 H Pulse Oximetry 94 94 Oxygen Delivery Room Air 11/26/24 03:46 11/26/24 03:52 11/26/24 03:52 Temperature 100.3 F H Pulse Rate 119 H 119 H 119 H Pulse Rate [Monitor] Respiratory Rate 16 16 Blood Pressure 156/110 H 156/110 H Pulse Oximetry 95 95 Oxygen Delivery Room Air 11/26/24 04:00 11/26/24 05:52 11/26/24 05:52 Temperature Pulse Rate 99 115 H 102 H Pulse Rate [Monitor] Respiratory Rate Blood Pressure 159/94 H 159/94 H Pulse Oximetry 90 Oxygen Delivery 11/26/24 06:00 11/26/24 07:10 11/26/24 07:36 Temperature 98.6 F Pulse Rate 102 H 95 Pulse Rate [Monitor] 102 H Respiratory Rate 16 Blood Pressure 152/90 H Pulse Oximetry 94 Oxygen Delivery Intake/Output Intake/Output: Intake & Output 11/23/24 11/24/24 11/25/24 11/26/24 23:59 23:59 23:59 23:59 Intake Total 1999 1232 Output Total 180 Balance 1999 1052 Meds/Results Medications: Active Medications Generic Name Dose Route Start Last Admin Trade Name Freq PRN Reason Stop Dose Admin Acetaminophen 650 mg 11/25/24 22:08 Acetaminophen 325 Mg Tablet PO Q4H PRN Mild Pain (1-3) or Fever Chlordiazepoxide HCl 25 mg 11/26/24 12:00 Chlordiazepoxide (*Crx) 25 Mg Capsule PO Q6HR [facility] Digoxin 125 mcg 11/26/24 09:00 Digoxin Tab 125 Mcg Tablet PO DAILY [facility] Fluticasone/Umeclidinium/Vilanterol 1 puff 11/26/24 08:00 Fluticasone/Umeclidin/Vilanter 200-62.5-25 Mcg Ellipta INHALATION DAILYRT [facility] Folic Acid 1 mg 11/26/24 09:00 Folic Acid 1 Mg Tablet PO DAILY [facility] Gabapentin 300 mg 11/26/24 09:00 Gabapentin 300 Mg Capsule PO DAILY [facility] Sodium Bicarbonate 150 meq/ 1,100 mls @ 100 mls/hr 11/26/24 01:05 11/26/24 01:50 Dextrose IV CONT 100 mls/hr .Q11H MIGUEL A Administration Diltiazem HCl 100 mg in 100 mls @ 5 mls/hr 11/26/24 03:10 11/26/24 05:52 Cardizem 100 Mg/100 Ml IV CONT 5 mg/hr .Q20H MIGUEL A 5 mls/hr Infusion 5 MG/HR Ceftriaxone Sodium 1 gm in 50 mls @ 100 mls/hr 11/26/24 07:00 Rocephin 1 Gm/Ns 50 Ml IVPB Q24H [facility] Lorazepam 2 mg 11/26/24 07:10 Lorazepam Inj (*Crx) 2 Mg/Ml Vial IV PUSH Q2H PRN CIWA > 15 Lorazepam 2 mg 11/26/24 07:10 Lorazepam Inj (*Crx) 2 Mg/Ml Vial IV PUSH Q4H PRN CIWA 8-15 Losartan Potassium 50 mg 11/26/24 09:00 Losartan Potassium 50 Mg Tablet PO DAILY [facility] Metoprolol Succinate 50 mg 11/26/24 09:00 Metoprolol Succinate Ext Rel 50 Mg Tabcr PO QAM [facility] Metoprolol Tartrate 5 mg 11/25/24 19:26 11/25/24 21:55 Metoprolol Tartrate Inj 5 Mg/5 Ml Vial IV PUSH 5 mg Q5M PRN Administration Afib RVR HR >110 Mirtazapine 15 mg 11/26/24 09:00 Mirtazapine 15 Mg Tablet PO DAILY [facility] Ondansetron HCl 4 mg 11/25/24 22:08 Ondansetron Inj 4 Mg/2 Ml Vial IV PUSH Q4H PRN Nausea Rivaroxaban 20 mg 11/26/24 09:00 Rivaroxaban 20 Mg Tablet PO DAILY [facility] Sertraline HCl 100 mg 11/26/24 09:00 Sertraline Hcl 50 Mg Tablet PO DAILY [facility] Thiamine HCl 100 mg 11/26/24 09:00 Thiamine Hcl 100 Mg Tablet PO QAM [facility] Radiology Results: ITS Impressions Chest X-Ray 11/25/24 19:08 IMPRESSION: Severe centrilobular emphysema without focal infiltrate or effusion. Labs Labs: Laboratory Results - last 24 hr 11/25/24 11/25/24 11/26/24 19:26 20:59 00:01 WBC 14.5 H RBC 6.02 Hgb 18.1 H D Hct 53.9 H MCV 89.5 MCH 30.1 MCHC 33.6 RDW 16.0 H Plt Count 280 MPV 9.6 Immature Gran % (Auto) 0.3 Neut % (Auto) 79.3 H Lymph % (Auto) 14.0 L [place] % (Auto) 6.1 Eos % (Auto) 0.0 Baso % (Auto) 0.3 Lymph # (Auto) 2.03 [place] # (Auto) 0.9 H Eos # (Auto) 0.0 Baso # (Auto) 0.0 Abs Immat Gran (auto) 0.05 H Absolute Neuts (auto) 11.5 H Absolute Nucleated RBC 0.000 Nucleated RBC % 0.0 PT 14.1 INR 1.0 APTT 27.2 Sodium 139 138 Potassium 3.7 4.2 Chloride 95 L 102 Carbon Dioxide 18 L 14 L Anion Gap 26 H 22 H BUN 41 H D 37 H Creatinine 0.97 0.83 Estim Creat Clear Calc Not Reportable 84 Estimated GFR > 60 > 60 Glucose 105 106 Lactic Acid 4.9 H* Calcium 9.1 7.7 L Magnesium 1.9 Total Bilirubin 0.9 AST 42 ALT 28 Alkaline Phosphatase 98 Total Protein 9.0 H Albumin 4.8 Urine Color Yellow Urine Appearance Clear Urine pH 5.5 Ur Specific [place] 1.020 Urine Protein 2+ H Urine Glucose (UA) Negative Urine Ketones 1+ H Ur Blood (Man) 1+ H Urine Nitrate Positive H Urine Bilirubin Negative Urine Urobilinogen 0.2 Leukocyte Esterase Rfl Trace H Urine RBC 0-2 Urine WBC 6-10 H Ur Squamous Epith Cells None seen Urine Bacteria 1+ H Urine Casts 3-5 Salicylates < 1.0 L Urine Opiates Screen Negative Urine Methadone Screen Negative Acetaminophen < 10 L Ur Barbiturates Screen Negative Ur Phencyclidine Scrn Negative Ur Amphetamine Screen Positive A U Benzodiazepines Scrn Negative Urine Cocaine Screen Negative U Cannabinoids Screen Negative Ethyl Alcohol 203 11/26/24 02:37 WBC 13.4 H RBC 5.19 Hgb 15.9 Hct 46.8 MCV 90.2 MCH 30.6 MCHC 34.0 RDW 15.6 H Plt Count 201 MPV 9.3 Immature Gran % (Auto) 0.3 Neut % (Auto) 84.8 H Lymph % (Auto) 8.9 L [place] % (Auto) 5.9 Eos % (Auto) 0.0 Baso % (Auto) 0.1 L Lymph # (Auto) 1.20 [place] # (Auto) 0.8 H Eos # (Auto) 0.0 Baso # (Auto) 0.0 Abs Immat Gran (auto) 0.04 H Absolute Neuts (auto) 11.4 H Absolute Nucleated RBC 0.000 Nucleated RBC % 0.0 PT INR APTT Sodium 135 L Potassium 4.3 Chloride 101 Carbon Dioxide 17 L Anion Gap 17 H BUN 38 H Creatinine 0.78 Estim Creat Clear Calc 70 Estimated GFR > 60 Glucose 154 H Lactic Acid 3.9 H Calcium 8.1 L Magnesium Total Bilirubin 0.8 AST 36 ALT 26 Alkaline Phosphatase 80 Total Protein 7.0 Albumin 4.0 Urine Color Urine Appearance Urine pH Ur Specific [place] Urine Protein Urine Glucose (UA) Urine Ketones Ur Blood (Man) Urine Nitrate Urine Bilirubin Urine Urobilinogen Leukocyte Esterase Rfl Urine RBC Urine WBC Ur Squamous Epith Cells Urine Bacteria Urine Casts Salicylates Urine Opiates Screen Urine Methadone Screen Acetaminophen Ur Barbiturates Screen Ur Phencyclidine Scrn Ur Amphetamine Screen U Benzodiazepines Scrn Urine Cocaine Screen U Cannabinoids Screen Ethyl Alcohol
[2024-11-26] MEDS: chlordiazePOXIDE (*CRX) 25 MG CAPSULE PO ×3 (09:01→17:40)
[2024-11-26] MEDS: RIVAROXABAN 20 MG TABLET PO (09:01)
[2024-11-26] MEDS: FOLIC ACID 1 MG TABLET PO (09:01)
[2024-11-26] MEDS: SERTRALINE HCL 50 MG TABLET 100 MG PO (09:01)
[2024-11-26] MEDS: DIGOXIN TAB 125 MCG TABLET PO (09:01)
[2024-11-26] MEDS: THIAMINE HCL 100 MG TABLET PO (09:02)
[2024-11-26] MEDS: MIRTAZAPINE 15 MG TABLET PO (09:02)
[2024-11-26] MEDS: GABAPENTIN 300 MG CAPSULE PO (09:02)
[2024-11-26] MEDS: METOPROLOL SUCCINATE EXT REL 50 MG TABCR PO (09:02)
[2024-11-26] MEDS: LOSARTAN POTASSIUM 50 MG TABLET PO (09:02)
[2024-11-26] MEDS: LORazepam INJ (*CRX) 2 MG/ML VIAL IV PUSH ×2 (09:21→11:49)
[2024-11-26 10:47] LABS: Lactic Acid Reflex 2.9 mmol/L (0.7-2.0)
[2024-11-26] MEDS: TAMSULOSIN HCL 0.4 MG CAPSULE PO (11:52)
[2024-11-26 12:18] LABS: Glucose Point of Care 162 mg/dl (65-105)
[2024-11-26 12:28] LABS: MRSA (PCR) NOT DETECTED (NOT DETECTE)
[2024-11-26 12:31] LABS: Anion Gap 12 mmol/L (4-12); Blood Urea Nitrogen 37 mg/dL (9-20); Calcium 8.2 mg/dL (8.4-10.2); Carbon Dioxide 28 mmol/L (22-30); Chloride 94 mmol/L (98-107); Estimated CRCL calculation 80 ml/min; Estimated Glomerular Filt Rate > 60; Glucose 166 mg/dL (65-110); Potassium 3.6 mmol/L (3.4-5.0); Sodium 134 mmol/L (137-145)
[2024-11-26] MEDS: LORazepam INJ (*CRX) 2 MG/ML VIAL 1 MG IV PUSH (13:31)
--- NOTE | 2024-11-26 14:00 | PC.NURSE ---
Pt experiencing worsening of withdrawl symptoms. Found attempting to climb out of bed and covered in blood. The IV was was pulled out. Visibly sweating, disoriented to place and time and agitated. CIWA score 20. Dr. Arreola called to bedside. PT transferred to ICU 6, report to [facility]
--- NOTE | 2024-11-26 14:05 | P.CONIN_ITS ---
Assessment and Plan Assessment and plan (1) Sepsis: Code(s): A41.9 - Sepsis, unspecified organism Status: Acute Assessment and Plan: Patient presented with dehydration, opioid overdose, was given Narcan 6 mg by EMS after which she woke up and had normal respirations. -patient had leukocytosis, lactic acidosis, tachypnea, nausea, vomiting -UA reflective of UTI -patient started on ceftriaxone (11/26) -blood pressures remained stable -renal function is normal -11/26: Blood cultures have been obtained and pending -11/25: Urine cultures have been obtained and pending (2) Alcohol withdrawal: Code(s): F10.939 - Alcohol use, unspecified with withdrawal, unspecified Status: Acute Assessment and Plan: Patient now in alcohol withdrawal for which he is being transferred to the ICU -CIWA scores have gone from 8 to22 patient has received multiple doses of Ativan, also on Librium -patient is getting agitated, trying to pull on lines and has removed 1 line, removing leads as well as O2 sat monitor -patient brought to the ICU, started on Precedex infusion will maintain RASS of 0 to -1 -continue folic acid and thiamine (3) Opiate withdrawal: Code(s): F11.93 - Opioid use, unspecified with withdrawal Status: Acute Assessment and Plan: Will continue to monitor for opiate withdrawal -according to the records, patient had been treated previously with Suboxone but this had not been refilled since September 22. (4) Atrial fibrillation with rapid ventricular response: Code(s): I48.91 - Unspecified atrial fibrillation Status: Acute Assessment and Plan: Patient has a history of AFib, patient was in AFib RVR on admission, improved with IV fluids as patient was dehydrated, also methamphetamine use along with opioid use. -patient started on Cardizem infusion after receiving IV fluids -continue Xarelto -continue metoprolol (5) BPH with urinary obstruction: Code(s): N40.1 - Benign prostatic hyperplasia with lower urinary tract symptoms; N13.8 - Other obstructive and reflux uropathy Status: Acute Assessment and Plan: Patient's bladder scan at over 600 mL in urine, Lau catheter was inserted. (6) COPD (chronic obstructive pulmonary disease): Code(s): J44.9 - Chronic obstructive pulmonary disease, unspecified Status: Chronic Assessment and Plan: Patient with history of COPD -will start bronchodilators, -patient also on Eliquis the at home (7) Acute dehydration: Code(s): E86.0 - Dehydration Status: Acute (8) Hypertension: Code(s): I10 - Essential (primary) hypertension Status: Acute Assessment and Plan: Continue losartan and metoprolol Plan DVT prophylaxis: Xarelto Stress ulcer prophylaxis: Not indicated Nutrition: Heart healthy diet Code Status: Full code Critical Care Time Spent: 48 minutes Due to a high probability of clinically significant, life threatening deterioration, the patient required my highest level of preparedness to intervene emergently and I personally spent this critical care time directly and personally managing the patient. This critical care time included obtaining a history; examining the patient; pulse oximetry; ordering and review of studies; arranging urgent treatment with development of a management plan; evaluation of patient's response to treatment; frequent reassessment; and discussions with other providers. It was exclusive of separately billable procedures and treating other patients and teaching time. Please see Assessment and Plan section and the rest of the note for further information on patient assessment and treatment This dictation may have been done utilizing a voice recognition system. Attempts have been made to correct errors. However, there may be uncorrected grammatical, spelling, and recognitions errors present. Sales Coordinator Consult Note Consult date: 11/26/24 Reason for consult: Alcohol withdrawal, methamphetamine abuse, AFib RVR HPI: Javad Gant is a 64 year old male polysubstance abuse, alcohol abuse, drinks 1/5 of cheap whiskey daily, tobacco dependence, cardiomyopathy, atrial fibrillation, COPD after being found unresponsive at home after wellness check with police arrival. Once EMS arrived to 8 minutes says 6 mg of intravenous Narcan with return of mentation and spontaneous breathing. Patient was tachycardic in the 180s, diaphoretic, also had some nausea and vomiting. He told me that patient admitted to using fentanyl IV, otherwise he puts it on a hour glass and snorts it. Patient was started on Cardizem infusion, given 2.5 L IV fluid bolus in the ED patient was also given Lopressor 5 mg IV x1 in the ER. Patient's hemoglobin was 18.1, WBC 14.5, platelets 280, BUN of 41 and creatinine of 0.97, CO2 of 18. UA was positive for urine nitrates, trace leukocyte esterase, 1+ urine bacteria. Urine drug screen was positive for amphetamines. Chest x-ray on admission showed severe centrilobular emphysema without focal infiltrate or effusion. Patient was started on ceftriaxone, CIWA protocol with Librium and Ativan and transferred to intermediate Unit for further management. Over the course of the day patient has become more agitated, pulling on lines and removed 1 of them. A CIWA gem from 8 to 2, he has received multiple doses of Ativan, also started on Librium. I was asked to evaluate the patient, transferred him to the ICU for Precedex infusion Patient seen and examined in the ICU on arrival, is awake, alert, oriented x3, able to answer questions appropriately with sometimes is tangential and incoherent. He states that he has drinks 1/5 of a cheap whiskey on a daily basis, inhales fentanyl. He has smoked weed in the past but not anymore. He does not remember if he took methamphetamine when I asked him it was positive in his urine drug screen. 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 Patient does get little confusion was to get out of the bed, pulling on his O2 sat monitor. Denies any chest pain, shortness of breath, nausea vomiting at this time Review of Systems 2 Review of Systems: All systems reviewed & are unremarkable except as noted in HPI and below PMFSH Past Medical History Medical History (Updated 11/26/24 @ 14:40 by Flip Lilly MD) BPH (benign prostatic hyperplasia) Tobacco abuse disorder Cardiomyopathy Mitral regurgitation Opioid abuse Alcohol abuse Atrial fibrillation COPD (chronic obstructive pulmonary disease) Surgical History Surgical History History of hernia surgery Family History Family History Father Diabetes mellitus Hypertension Acute myocardial infarction Sibling Family history of alcoholism Mother Dementia Social History Social History (Updated 11/26/24 @ 07:00 by Ginny Zepeda DO) Social History: The patient lives with his mother. 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 He smoked a pack of cigarettes per day since he was a teenager. He has had difficulty with alcohol dependence since he was young. He reports that he was in recovery for 20 years but started drinking again within the last year. He reports that he was on Suboxone but her started using fentanyl again October 2024. Code status: Full code Surrogate decision maker: Mother Smoking packs per day: 1 Smoking cigarettes per day: 20.0 Years smoked: 20 Smoking pack-years: 20.00 Smoking status: Current every day smoker Tobacco type: cigarettes Alcohol intake: current Substance use: current Substance use type: marijuana and opiates Other substance usage details: Fentanyl IV last use 11/24/24 at 12pm, marijuana last use 11/17/24. Last use: Pt drinks 1/5 whiskey daily. Last drink was on 11/25/24 at 12pm. Do You Feel Safe in your Home?: Yes Lack of Transportation: No Lack of Food: Never True Current Housing: I Have Housing Concerned About Future Housing: No Difficulty Paying Gas/Electric Bills: No Difficulty Paying for Meds: No Currently Unemployed: No Education: High School Diploma/GED Difficulty w/ Childcare or Family Care: No Spiritual care concerns: No Meds Home Medications and Allergies Home Medications ?Medication ?Instructions ?Recorded ?Confirmed ?Type albuterol sulfate 90 mcg/actuation 2 puff inhalation DAILY PRN 11/11/23 11/26/24 History aerosol inhaler shortness of breath or wheezing buprenorphine 8 mg-naloxone 2 mg 1 tablet sublingual DAILY 11/11/23 11/26/24 History sublingual tablet losartan 50 mg tablet 50 mg PO DAILY 11/11/23 11/26/24 History rivaroxaban 20 mg tablet (Xarelto) 20 mg PO DAILY 11/11/23 11/26/24 History umeclidinium 62.5 mcg-vilanterol 1 inh inhalation DAILY 11/11/23 11/26/24 History 25 mcg/actuation powdr for inhalation (Anoro Ellipta) folic acid 1 mg tablet 1 mg PO DAILY #30 tabs 11/15/23 11/26/24 Rx furosemide 40 mg tablet 40 mg PO DAILY #30 tabs 11/15/23 11/26/24 Rx metoprolol succinate 50 mg 50 mg PO QAM #30 tabs 11/15/23 11/26/24 Rx tablet,extended release 24 hr naloxone 4 mg/actuation nasal 4 mg intranasal Q2M PRN opioid 11/15/23 11/26/24 Rx spray (Narcan) overdose #2 ea thiamine HCl (vitamin B1) 100 mg 100 mg PO QAM #30 tabs 11/15/23 11/26/24 Rx tablet (Vitamin B-1) digoxin 125 mcg (0.125 mg) tablet 0.125 mg PO DAILY 11/26/24 11/26/24 History fluticasone fur. 200 mcg-umeclid 1 inh inhalation Q24H 11/26/24 11/26/24 History 62.5 mcg-vilant 25 mcg inhalat.powder (Trelegy Ellipta) gabapentin 300 mg capsule 300 mg PO DAILY 11/26/24 11/26/24 History mirtazapine 15 mg tablet 15 mg PO DAILY 11/26/24 11/26/24 History sertraline 100 mg tablet 100 mg PO DAILY 11/26/24 11/26/24 History spironolactone 25 mg tablet 12.5 mg PO DAILY 11/26/24 11/26/24 History Allergies Allergy/AdvReac Type Severity Reaction Status Date / Time latex Allergy Unknown Hives Verified 11/26/24 01:27 Vital Signs Vital Signs - 24 hr 11/25/24 18:27 11/25/24 18:41 11/25/24 18:41 Temperature Pulse Rate 140 H Pulse Rate [Monitor] Respiratory Rate 20 16 Blood Pressure 138/84 Pulse Oximetry 92 95 Oxygen Delivery Room Air Room Air 11/25/24 19:31 11/25/24 19:32 11/25/24 20:24 Temperature Pulse Rate 147 H 154 H 133 H Pulse Rate [Monitor] Respiratory Rate 16 28 H Blood Pressure 150/100 H 160/96 H Pulse Oximetry 98 99 Oxygen Delivery 11/25/24 21:11 11/25/24 21:20 11/25/24 21:52 Temperature Pulse Rate 122 H 97 122 H Pulse Rate [Monitor] Respiratory Rate 18 Blood Pressure 139/105 H 128/82 Pulse Oximetry 98 97 Oxygen Delivery 11/25/24 21:55 11/25/24 22:40 11/25/24 22:46 Temperature Pulse Rate 131 H 107 H 110 H Pulse Rate [Monitor] Respiratory Rate Blood Pressure Pulse Oximetry Oxygen Delivery 11/25/24 23:37 11/26/24 01:10 11/26/24 01:11 Temperature 98.4 F Pulse Rate 108 H 129 H Pulse Rate [Monitor] Respiratory Rate Blood Pressure Pulse Oximetry Oxygen Delivery 11/26/24 01:15 11/26/24 01:16 11/26/24 02:00 Temperature 98.3 F Pulse Rate 71 71 123 H Pulse Rate [Monitor] Respiratory Rate 18 18 Blood Pressure 156/81 H Pulse Oximetry 94 94 Oxygen Delivery Room Air 11/26/24 03:46 11/26/24 03:52 11/26/24 03:52 Temperature 100.3 F H Pulse Rate 119 H 119 H 119 H Pulse Rate [Monitor] Respiratory Rate 16 16 Blood Pressure 156/110 H 156/110 H Pulse Oximetry 95 95 Oxygen Delivery Room Air 11/26/24 04:00 11/26/24 05:52 11/26/24 05:52 Temperature Pulse Rate 99 115 H 102 H Pulse Rate [Monitor] Respiratory Rate Blood Pressure 159/94 H 159/94 H Pulse Oximetry 90 Oxygen Delivery 11/26/24 06:00 11/26/24 07:10 11/26/24 07:36 Temperature 98.6 F Pulse Rate 102 H 95 Pulse Rate [Monitor] 102 H Respiratory Rate 16 Blood Pressure 152/90 H Pulse Oximetry 94 Oxygen Delivery 11/26/24 08:00 11/26/24 08:00 11/26/24 08:00 Temperature Pulse Rate 104 H 87 Pulse Rate [Monitor] 104 H Respiratory Rate Blood Pressure 152/90 H Pulse Oximetry 97 Oxygen Delivery Room Air 11/26/24 10:00 11/26/24 10:00 11/26/24 10:04 Temperature 98.1 F Pulse Rate 98 98 84 Pulse Rate [Monitor] Respiratory Rate 24 H Blood Pressure 152/97 H 152/97 H 140/91 H Pulse Oximetry 97 Oxygen Delivery 11/26/24 10:18 11/26/24 11:28 11/26/24 12:00 Temperature 98.3 F Pulse Rate 87 Pulse Rate [Monitor] 87 Respiratory Rate 16 Blood Pressure 154/96 H Pulse Oximetry 94 97 Oxygen Delivery Room Air 11/26/24 12:00 11/26/24 12:00 Temperature Pulse Rate 87 Pulse Rate [Monitor] 83 Respiratory Rate Blood Pressure 154/96 H Pulse Oximetry Oxygen Delivery Exam 2 Narrative: General: Disheveled and malnourished individual currently in no acute distress HEENT:? Pupils equal and reactive, sclerae is flushed, dry oral mucosa Neck:? Supple Respiratory:? Clear to auscultation bilateral, no wheezing, adequate air entry Cardiac:? Irregularly irregular, rate controlled Abdomen:? Soft, nontender, nondistended, normoactive bowel sounds Extremities:? No edema, palpable pedal pulses Neuro:? Patient is awake, alert, oriented x3, intermittently incoherent and gets confused, easily redirectable Skin:? Scabs on lower extremities, bruising on upper extremities, Psych:? Intermittently confused and agitated Results Labs 11/26/24 02:37 11/26/24 12:13 Labs: Short CBC 11/25/24 11/26/24 Range/Units 19:26 02:37 WBC 14.5 H 13.4 H (4.5-10.0) K/mm3 Hgb 18.1 H D 15.9 (14.0-18.0) g/dL Hct 53.9 H 46.8 (42.0-52.0) % Plt Count 280 201 (150-375) k/mm3 BMP 11/25/24 11/26/24 11/26/24 19:26 00:01 02:37 Sodium 139 138 135 L Potassium 3.7 4.2 4.3 Chloride 95 L 102 101 Carbon Dioxide 18 L 14 L 17 L BUN 41 H D 37 H 38 H Creatinine 0.97 0.83 0.78 Glucose 105 106 154 H Calcium 9.1 7.7 L 8.1 L 11/26/24 12:13 Sodium 134 L Potassium 3.6 Chloride 94 L Carbon Dioxide 28 BUN 37 H Creatinine 0.68 L Glucose 166 H Calcium 8.2 L Liver Function 11/25/24 11/26/24 Range/Units 19:26 02:37 Total Bilirubin 0.9 0.8 (0.2-1.3) mg/dL AST 42 36 (17-59) U/L ALT 28 26 (6-50) U/L Alkaline Phosphatase 98 80 (38-126) U/L Albumin 4.8 4.0 (3.5-5.1) g/dL Urine 11/25/24 Range/Units 20:59 Urine Color Yellow (Yellow) Urine Appearance Clear (Clear) Urine pH 5.5 (5.0-9.0) Ur Specific [place] 1.020 (1.001-1.035) Urine Protein 2+ H (Negative) mg/dL Urine Glucose (UA) Negative (Negative) mg/dL Quality VTE Prophylaxis VTE prophylaxis: pharmacologic ordered Hospitalist MIPS Advance Care Plan I have confirmed that the patient's Advanced Care Plan is present, code status is documented, or surrogate decision maker is listed in patient medical record.: Yes Medication Reconciliation I have utilized all available resources to obtain, update and review the patients current medications (includes all prescriptions, OTC, herbals, cannabis, and nutritional supplements).: Yes
[2024-11-26] MEDS: dexmedeTOMIDine 400 MCG/100 ML 400 MCG/100 ML BAG IV CONT (14:09)
[2024-11-26] MEDS: LACTATED RINGERS 1,000 ML 100 ML IV CONT (15:09)
[2024-11-26 17:28] LABS: Glucose Point of Care 158 mg/dl (65-105)
[2024-11-26] MEDS: IPRATROPIUM BR 0.02% INH SOLN 0.5 MG/2.5 ML VIAL INHALATION (20:40)
[2024-11-26] MEDS: LEVALBUTEROL NEB 1.25 MG/3 ML 0.63 MG INHALATION (20:40)
[2024-11-27] VITALS (29 sets, daily range): BP systolic 97–144; BP diastolic 62–123; PULSE 57–117; RESP 16–28; TEMP 36.5–36.8; O2SAT 90–98
[2024-11-27] MEDS: chlordiazePOXIDE (*CRX) 25 MG CAPSULE PO ×2 (00:03→06:07)
[2024-11-27] MEDS: ONDANSETRON INJ 4 MG/2 ML VIAL IV PUSH ×2 (00:08→09:15)
[2024-11-27 00:09] LABS: Glucose Point of Care 148 mg/dl (65-105)
[2024-11-27] MEDS: LACTATED RINGERS 1,000 ML 100 ML IV CONT (01:00)
[2024-11-27] MEDS: NICOTINE (*PBKC) 21 MG PATCH 1 PATCH TRANSDERM (02:14)
[2024-11-27] MEDS: LEVALBUTEROL NEB 1.25 MG/3 ML 0.63 MG INHALATION ×4 (02:37→20:10)
[2024-11-27] MEDS: IPRATROPIUM BR 0.02% INH SOLN 0.5 MG/2.5 ML VIAL INHALATION ×4 (02:37→20:10)
[2024-11-27 06:15] LABS: Basophils Percent Auto 0.2 % (0.2-1.2); Eosinophils Percent Auto 0.1 % (0-4.4); Hematocrit 44.9 % (42.0-52.0); Hemoglobin 15.2 g/dL (14.0-18.0); Immature Granulocyte Absolute 0.07 K/mm3 (0.00-0.031); Immature Granulocyte Percent A 0.6 % (0-0.5); Lymphocytes Absolute Auto 1.82 K/mm3 (0.9-3.2); Lymphocytes Percent Auto 14.5 % (18.3-44.2); Mean Corpuscular HGB Conc 33.9 g/dl (32-36); Mean Corpuscular Hemoglobin 30.3 pg (26-34); Mean Corpuscular Volume 89.6 fl (80-100); Monocytes Absolute Auto 1.2 K/mm3 (0.1-0.6); Monocytes Percent Auto 9.8 % (2.6-8.5); Neutrophils Absolute Auto 9.4 K/mm3 (1.3-6.7); Neutrophils Percent Auto 74.8 % (45.5-73.1); Platelet Count Result 170 k/mm3 (150-375); Red Blood Count 5.01 M/mm3 (4.6-6.20); Red Cell Distribution Width 14.8 % (11.5-14.5); White Blood Count 12.5 K/mm3 (4.5-10.0)
[2024-11-27 06:28] LABS: Lactic Acid Reflex 1.2 mmol/L (0.7-2.0)
[2024-11-27 06:31] LABS: Alanine Aminotransferase 20 U/L (6-50); Albumin Level 3.2 g/dL (3.5-5.1); Alkaline Phosphatase 68 U/L (38-126); Anion Gap 6 mmol/L (4-12); Aspartate Amino Transferase 27 U/L (17-59); Bilirubin,Total 1.7 mg/dL (0.2-1.3); Blood Urea Nitrogen 28 mg/dL (9-20); Calcium 8.2 mg/dL (8.4-10.2); Carbon Dioxide 29 mmol/L (22-30); Chloride 98 mmol/L (98-107); Estimated CRCL calculation 80 ml/min; Estimated Glomerular Filt Rate > 60; Glucose 139 mg/dL (65-110); Magnesium 1.8 mg/dL (1.6-2.3); Phosphorus 2.8 mg/dL (2.5-4.5); Potassium 3.7 mmol/L (3.4-5.0); Sodium 133 mmol/L (137-145)
[2024-11-27] MEDS: dexmedeTOMIDine 400 MCG/100 ML 400 MCG/100 ML BAG IV CONT (06:38)
--- NOTE | 2024-11-27 07:56 | P.PNINT_ITS ---
Progress Note: A&P Assessment and Plan (1) Sepsis: Code(s): A41.9 - Sepsis, unspecified organism Status: Acute Assessment and Plan: Patient presented with dehydration, opioid overdose, was given Narcan 6 mg by EMS after which she woke up and had normal respirations. -patient had leukocytosis, lactic acidosis, tachypnea, nausea, vomiting -UA reflective of UTI -patient started on ceftriaxone (11/26) -blood pressures remained stable -renal function is normal -11/26: Blood cultures have been obtained and pending -11/25: Urine cultures have been obtained and pending (2) Alcohol withdrawal: Code(s): F10.939 - Alcohol use, unspecified with withdrawal, unspecified Status: Acute Assessment and Plan: Patient now in alcohol withdrawal for which he is being transferred to the ICU -CIWA scores have gone from 8 to22 patient has received multiple doses of Ati van, also on Librium -patient is getting agitated, trying to pull on lines and has removed 1 line, removing leads as well as O2 sat monitor -patient brought to the ICU, started on Precedex infusion will maintain RASS of 0 to -1 11/27: Continue to wean Precedex infusion, increased Librium -continue folic acid and thiamine (3) Opiate withdrawal: Code(s): F11.93 - Opioid use, unspecified with withdrawal Status: Acute Assessment and Plan: Will continue to monitor for opiate withdrawal -according to the records, patient had been treated previously with Suboxone but this had not been refilled since September 22. -will restart Suboxone at half the dose, discussed with pharmacy, to avoid withdrawal (4) Atrial fibrillation with rapid ventricular response: Code(s): I48.91 - Unspecified atrial fibrillation Status: Acute Assessment and Plan: Patient has a history of AFib, patient was in AFib RVR on admission, improved with IV fluids as patient was dehydrated, also methamphetamine use along with opioid use. -OFF Cardizem infusion -continue Xarelto -continue metoprolol (5) BPH with urinary obstruction: Code(s): N40.1 - Benign prostatic hyperplasia with lower urinary tract symptoms; N13.8 - Other obstructive and reflux uropathy Status: Acute Assessment and Plan: Patient's bladder scan at over 600 mL in urine, Lau catheter was inserted. (6) COPD (chronic obstructive pulmonary disease): Code(s): J44.9 - Chronic obstructive pulmonary disease, unspecified Status: Chronic Assessment and Plan: Patient with history of COPD -continue bronchodilators, -continue Ellipta (7) Acute dehydration: Code(s): E86.0 - Dehydration Status: Acute Assessment and Plan: Adequately fluid-resuscitated (8) Hypertension: Code(s): I10 - Essential (primary) hypertension Status: Acute Assessment and Plan: Continue losartan and metoprolol Plan DVT prophylaxis: Xarelto Stress ulcer prophylaxis: Not indicated Nutrition: Heart healthy diet Code Status: Full code Critical Care Time Spent: 32 minutes Due to a high probability of clinically significant, life threatening deterioration, the patient required my highest level of preparedness to intervene emergently and I personally spent this critical care time directly and personally managing the patient. This critical care time included obtaining a history; examining the patient; pulse oximetry; ordering and review of studies; arranging urgent treatment with development of a management plan; evaluation of patient's response to treatment; frequent reassessment; and discussions with other providers. It was exclusive of separately billable procedures and treating other patients and teaching time. Please see Assessment and Plan section and the rest of the note for further information on patient assessment and treatment This dictation may have been done utilizing a voice recognition system. Attempts have been made to correct errors. However, there may be uncorrected grammatical, spelling, and recognitions errors present. Subjective Date/time seen: 11/27/24 07:56 Interval history: Reason for consult: Alcohol withdrawal, methamphetamine abuse, AFib RVR 11/27/2024: Patient seen and examined the ICU, remains on Precedex infusion, is calm, not agitated, more awake, alert, oriented x3. Patient states he feels much better, had a good night sleep, requesting for Suboxone. Is off Cardizem infusion, remains in AFib, rate controlled. Adequate urine output, afebrile, hemodynamically stable Review of Systems Review of Systems: All systems reviewed & are unremarkable except as noted in HPI and below Exam Narrative: General: Disheveled and malnourished individual currently in no acute distress HEENT:? Pupils equal and reactive, sclerae is flushed, dry oral mucosa Neck:? Supple Respiratory:? Clear to auscultation bilateral, no wheezing, adequate air entry Cardiac:? Irregularly irregular, rate controlled Abdomen:? Soft, nontender, nondistended, normoactive bowel sounds Extremities:? No edema, palpable pedal pulses Neuro:? Patient is awake, alert, oriented x3, intermittently incoherent and gets confused, easily redirectable Skin:? Scabs on lower extremities, bruising on upper extremities, Psych:? Intermittently confused and agitated Objective Data Vital Signs Vital Signs: Vital Signs - 24 hr 11/26/24 08:00 11/26/24 08:00 11/26/24 08:00 Temperature Pulse Rate 104 H 87 Pulse Rate [Monitor] 104 H Respiratory Rate Blood Pressure 152/90 H Pulse Oximetry 97 Oxygen Delivery Room Air Oxygen Flow Rate 11/26/24 08:00 11/26/24 10:00 11/26/24 10:00 Temperature 98.1 F Pulse Rate 92 98 98 Pulse Rate [Monitor] Respiratory Rate 24 H Blood Pressure 152/97 H 152/97 H Pulse Oximetry 97 Oxygen Delivery Oxygen Flow Rate 11/26/24 10:00 11/26/24 10:04 11/26/24 10:18 Temperature Pulse Rate 92 84 Pulse Rate [Monitor] Respiratory Rate Blood Pressure 140/91 H Pulse Oximetry 94 Oxygen Delivery Room Air Oxygen Flow Rate 11/26/24 11:28 11/26/24 12:00 11/26/24 12:00 Temperature 98.3 F Pulse Rate 87 87 Pulse Rate [Monitor] 87 Respiratory Rate 16 Blood Pressure 154/96 H 154/96 H Pulse Oximetry 97 Oxygen Delivery Oxygen Flow Rate 11/26/24 12:00 11/26/24 12:00 11/26/24 12:00 Temperature Pulse Rate 87 Pulse Rate [Monitor] 83 Respiratory Rate Blood Pressure Pulse Oximetry 88 L Oxygen Delivery Nasal Cannula Oxygen Flow Rate 2 11/26/24 14:00 11/26/24 14:00 11/26/24 14:00 Temperature Pulse Rate 97 91 89 Pulse Rate [Monitor] Respiratory Rate Blood Pressure 156/110 H 145/100 H Pulse Oximetry Oxygen Delivery Oxygen Flow Rate 11/26/24 14:09 11/26/24 14:53 11/26/24 16:00 Temperature 98.4 F Pulse Rate 81 90 85 Pulse Rate [Monitor] Respiratory Rate 21 H 37 H 29 H Blood Pressure 129/79 Pulse Oximetry 92 Oxygen Delivery Oxygen Flow Rate 11/26/24 16:00 11/26/24 16:00 11/26/24 16:00 Temperature Pulse Rate 91 Pulse Rate [Monitor] 97 Respiratory Rate Blood Pressure Pulse Oximetry Oxygen Delivery Room Air Oxygen Flow Rate 11/26/24 16:00 11/26/24 16:00 11/26/24 17:24 Temperature Pulse Rate 81 79 81 Pulse Rate [Monitor] Respiratory Rate 31 H 26 H Blood Pressure 137/100 H Pulse Oximetry Oxygen Delivery Oxygen Flow Rate 11/26/24 18:00 11/26/24 18:00 11/26/24 18:04 Temperature Pulse Rate 75 70 71 Pulse Rate [Monitor] Respiratory Rate 20 Blood Pressure 116/82 116/82 Pulse Oximetry 93 Oxygen Delivery Oxygen Flow Rate 11/26/24 18:05 11/26/24 19:10 11/26/24 19:10 Temperature Pulse Rate 71 70 70 Pulse Rate [Monitor] Respiratory Rate 20 Blood Pressure 110/83 110/83 Pulse Oximetry Oxygen Delivery Oxygen Flow Rate 11/26/24 20:00 11/26/24 20:00 11/26/24 20:00 Temperature 98 F Pulse Rate 73 73 Pulse Rate [Monitor] 69 Respiratory Rate 24 H 24 H Blood Pressure 114/72 114/72 Pulse Oximetry 94 Oxygen Delivery Oxygen Flow Rate 11/26/24 20:00 11/26/24 20:00 11/26/24 20:00 Temperature Pulse Rate 73 58 L Pulse Rate [Monitor] Respiratory Rate Blood Pressure 114/72 Pulse Oximetry Oxygen Delivery Room Air Oxygen Flow Rate 11/26/24 20:45 11/26/24 21:34 11/26/24 21:34 Temperature Pulse Rate 72 69 69 Pulse Rate [Monitor] Respiratory Rate 20 22 H 22 H Blood Pressure Pulse Oximetry 96 Oxygen Delivery Room Air Oxygen Flow Rate 11/26/24 22:00 11/26/24 22:00 11/26/24 22:00 Temperature Pulse Rate 62 62 62 Pulse Rate [Monitor] Respiratory Rate 25 H Blood Pressure 112/85 Pulse Oximetry Oxygen Delivery Oxygen Flow Rate 11/26/24 22:00 11/26/24 23:20 11/27/24 00:00 Temperature Pulse Rate 62 61 Pulse Rate [Monitor] 62 Respiratory Rate 25 H 21 H Blood Pressure 112/85 102/75 Pulse Oximetry 92 Oxygen Delivery Oxygen Flow Rate 11/27/24 00:00 11/27/24 00:00 11/27/24 00:00 Temperature Pulse Rate 57 L 57 L 65 Pulse Rate [Monitor] Respiratory Rate 23 H Blood Pressure 102/75 Pulse Oximetry Oxygen Delivery Oxygen Flow Rate 11/27/24 00:00 11/27/24 00:01 11/27/24 02:00 Temperature Pulse Rate 71 65 Pulse Rate [Monitor] Respiratory Rate 24 H 25 H Blood Pressure 102/75 Pulse Oximetry 94 Oxygen Delivery Room Air Oxygen Flow Rate 11/27/24 02:00 11/27/24 02:00 11/27/24 02:37 Temperature Pulse Rate 65 65 67 Pulse Rate [Monitor] Respiratory Rate 25 H 20 Blood Pressure 116/73 Pulse Oximetry 93 Oxygen Delivery Oxygen Flow Rate 11/27/24 02:45 11/27/24 04:00 11/27/24 04:00 Temperature 97.9 F Pulse Rate 76 68 68 Pulse Rate [Monitor] Respiratory Rate 20 24 H Blood Pressure 125/86 Pulse Oximetry 93 Oxygen Delivery Oxygen Flow Rate 11/27/24 04:00 11/27/24 04:00 11/27/24 04:00 Temperature Pulse Rate 68 Pulse Rate [Monitor] 68 Respiratory Rate 24 H Blood Pressure 125/86 Pulse Oximetry Oxygen Delivery Room Air Oxygen Flow Rate 11/27/24 06:00 11/27/24 06:00 11/27/24 06:00 Temperature Pulse Rate 80 89 89 Pulse Rate [Monitor] Respiratory Rate 25 H 25 H Blood Pressure 125/102 H Pulse Oximetry 95 Oxygen Delivery Oxygen Flow Rate 11/27/24 06:19 11/27/24 06:38 11/27/24 06:38 Temperature Pulse Rate 84 84 Pulse Rate [Monitor] Respiratory Rate 23 H 23 H Blood Pressure 136/99 H Pulse Oximetry Oxygen Delivery Oxygen Flow Rate Intake/Output Intake/Output: Intake & Output 11/24/24 11/25/24 11/26/24 11/27/24 23:59 23:59 23:59 23:59 Intake Total 1999 1570.0 1642.5 Output Total 405 600 Balance 1999 1165.0 1042.5 Meds/Results Medications: Active Medications Generic Name Dose Route Start Last Admin Trade Name Freq PRN Reason Stop Dose Admin Acetaminophen 650 mg 11/25/24 22:08 Acetaminophen 325 Mg Tablet PO Q4H PRN Mild Pain (1-3) or Fever Chlordiazepoxide HCl 50 mg 11/27/24 12:00 Chlordiazepoxide (*Crx) 25 Mg Capsule PO Q6HR MIGUEL A Digoxin 125 mcg 11/26/24 09:00 11/26/24 09:01 Digoxin Tab 125 Mcg Tablet PO 125 mcg DAILY MIGUEL A Administration Fluticasone/Umeclidinium/Vilanterol 1 puff 11/26/24 08:00 11/26/24 15:56 Fluticasone/Umeclidin/Vilanter 200-62.5-25 Mcg Ellipta INHALATION Not Given DAILYRT MIGUEL A Folic Acid 1 mg 11/26/24 09:00 11/26/24 09:01 Folic Acid 1 Mg Tablet PO 1 mg DAILY MIGUEL A Administration Gabapentin 300 mg 11/26/24 09:00 11/26/24 09:02 Gabapentin 300 Mg Capsule PO 300 mg DAILY MIGUEL A Administration Diltiazem HCl 100 mg in 100 mls @ 0 mls/hr 11/26/24 03:10 11/27/24 00:00 Cardizem 100 Mg/100 Ml IV CONT 0 mg/hr .Q0M MIGUEL A 0 mls/hr Infusion 0 MG/HR Ceftriaxone Sodium 1 gm in 50 mls @ 100 mls/hr 11/26/24 07:00 11/27/24 06:38 Rocephin 1 Gm/Ns 50 Ml IVPB Infused Q24H MIGUEL A Infusion Dexmedetomidine HCl 400 mcg in 100 mls @ 4.47 mls/hr 11/26/24 13:35 11/27/24 06:38 Precedex 400 Mcg/100 Ml IV CONT 0.3 mcg/kg/hr .[id number] MIGUEL A 4.47 mls/hr Administration Protocol 0.3 MCG/KG/HR Ipratropium [place] 0.5 mg 11/26/24 20:00 11/27/24 02:37 Ipratropium Br 0.02% Inh Soln 0.5 Mg/2.5 Ml Vial INHALATION 0.5 mg Q6HRT MIGUEL A Administration Levalbuterol HCl 0.63 mg 11/26/24 20:00 11/27/24 02:37 Levalbuterol Neb 1.25 Mg/3 Ml INHALATION 0.63 mg Q6HRT MIGUEL A Administration Lorazepam 2 mg 11/26/24 07:10 11/26/24 11:49 Lorazepam Inj (*Crx) 2 Mg/Ml Vial IV PUSH 2 mg Q2H PRN Administration CIWA > 15 Lorazepam 2 mg 11/26/24 07:10 11/26/24 09:21 Lorazepam Inj (*Crx) 2 Mg/Ml Vial IV PUSH 2 mg Q4H PRN Administration CIWA 8-15 Lorazepam 1 mg 11/26/24 08:30 11/26/24 13:31 Lorazepam Inj (*Crx) 2 Mg/Ml Vial IV PUSH 1 mg ONCE PRN Administration Anxiety Losartan Potassium 50 mg 11/26/24 09:00 11/26/24 09:02 Losartan Potassium 50 Mg Tablet PO 50 mg DAILY MIGUEL A Administration Metoprolol Succinate 50 mg 11/26/24 09:00 11/26/24 09:02 Metoprolol Succinate Ext Rel 50 Mg Tabcr PO 50 mg QAM MIGUEL A Administration Metoprolol Tartrate 5 mg 11/25/24 19:26 11/25/24 21:55 Metoprolol Tartrate Inj 5 Mg/5 Ml Vial IV PUSH 5 mg Q5M PRN Administration Afib RVR HR >110 Mirtazapine 15 mg 11/26/24 09:00 11/26/24 09:02 Mirtazapine 15 Mg Tablet PO 15 mg DAILY MIGUEL A Administration Multi-Ingred Cream/Lotion/Oil/Oint 1 applic 11/26/24 13:40 11/26/24 20:00 Mineral Oil/White Petrolatum Ointment EACH EYE Not Given Q12HR MIGUEL A Nicotine 1 patch 11/26/24 09:27 11/27/24 02:14 Nicotine (*Pbkc) 21 Mg Patch TRANSDERM 1 patch DAILY PRN Administration Nicotine withdrawal Ondansetron HCl 4 mg 11/25/24 22:08 11/27/24 00:08 Ondansetron Inj 4 Mg/2 Ml Vial IV PUSH 4 mg Q4H PRN Administration Nausea Rivaroxaban 20 mg 11/26/24 09:00 11/26/24 09:01 Rivaroxaban 20 Mg Tablet PO 20 mg DAILY MIGUEL A Administration Sertraline HCl 100 mg 11/26/24 09:00 11/26/24 09:01 Sertraline Hcl 50 Mg Tablet PO 100 mg DAILY MIGUEL A Administration Tamsulosin HCl 0.4 mg 11/26/24 09:20 11/26/24 11:52 Tamsulosin Hcl 0.4 Mg Capsule PO 0.4 mg QAM MIGUEL A Administration Thiamine HCl 100 mg 11/26/24 09:00 11/26/24 09:02 Thiamine Hcl 100 Mg Tablet PO 100 mg QAM MIGUEL A Administration Radiology Results: ITS Impressions Chest X-Ray 11/25/24 19:08 IMPRESSION: Severe centrilobular emphysema without focal infiltrate or effusion. Labs Labs: Laboratory Results - last 24 hr 11/26/24 11/26/24 11/26/24 07:08 08:25 12:13 WBC RBC Hgb Hct MCV MCH MCHC RDW Plt Count MPV Immature Gran % (Auto) Neut % (Auto) Lymph % (Auto) [place] % (Auto) Eos % (Auto) Baso % (Auto) Lymph # (Auto) [place] # (Auto) Eos # (Auto) Baso # (Auto) Abs Immat Gran (auto) Absolute Neuts (auto) Absolute Nucleated RBC Nucleated RBC % Sodium 134 L Potassium 3.6 Chloride 94 L Carbon Dioxide 28 Anion Gap 12 BUN 37 H Creatinine 0.68 L Estim Creat Clear Calc 80 Estimated GFR > 60 Glucose 166 H POC Capillary Glucose Lactic Acid 2.9 H Calcium 8.2 L Phosphorus Magnesium 2.0 Total Bilirubin AST ALT Alkaline Phosphatase Total Protein Albumin Nasal MRSA (PCR) Not detected 11/26/24 11/26/24 11/27/24 12:16 17:16 00:02 WBC RBC Hgb Hct MCV MCH MCHC RDW Plt Count MPV Immature Gran % (Auto) Neut % (Auto) Lymph % (Auto) [place] % (Auto) Eos % (Auto) Baso % (Auto) Lymph # (Auto) [place] # (Auto) Eos # (Auto) Baso # (Auto) Abs Immat Gran (auto) Absolute Neuts (auto) Absolute Nucleated RBC Nucleated RBC % Sodium Potassium Chloride Carbon Dioxide Anion Gap BUN Creatinine Estim Creat Clear Calc Estimated GFR Glucose POC Capillary Glucose 162 H 158 H 148 H Lactic Acid Calcium Phosphorus Magnesium Total Bilirubin AST ALT Alkaline Phosphatase Total Protein Albumin Nasal MRSA (PCR) 11/27/24 06:07 WBC 12.5 H RBC 5.01 Hgb 15.2 Hct 44.9 MCV 89.6 MCH 30.3 MCHC 33.9 RDW 14.8 H Plt Count 170 MPV 9.0 Immature Gran % (Auto) 0.6 H Neut % (Auto) 74.8 H Lymph % (Auto) 14.5 L [place] % (Auto) 9.8 H Eos % (Auto) 0.1 Baso % (Auto) 0.2 Lymph # (Auto) 1.82 [place] # (Auto) 1.2 H Eos # (Auto) 0.0 Baso # (Auto) 0.0 Abs Immat Gran (auto) 0.07 H Absolute Neuts (auto) 9.4 H Absolute Nucleated RBC 0.000 Nucleated RBC % 0.0 Sodium 133 L Potassium 3.7 Chloride 98 Carbon Dioxide 29 Anion Gap 6 BUN 28 H Creatinine 0.67 L Estim Creat Clear Calc 80 Estimated GFR > 60 Glucose 139 H POC Capillary Glucose Lactic Acid 1.2 Calcium 8.2 L Phosphorus 2.8 Magnesium 1.8 Total Bilirubin 1.7 H AST 27 ALT 20 Alkaline Phosphatase 68 Total Protein 6.0 L Albumin 3.2 L Nasal MRSA (PCR) Quality VTE Prophylaxis VTE prophylaxis: pharmacologic ordered
[2024-11-27] MEDS: FLUTICASONE/UMECLIDIN/VILANTER 200-62.5-25 MCG ELLIPTA 1 PUFF INHALATION (08:27)
[2024-11-27] MEDS: RIVAROXABAN 20 MG TABLET PO (09:19)
[2024-11-27] MEDS: SERTRALINE HCL 50 MG TABLET 100 MG PO (09:19)
[2024-11-27] MEDS: GABAPENTIN 300 MG CAPSULE PO (09:19)
[2024-11-27] MEDS: THIAMINE HCL 100 MG TABLET PO (09:19)
[2024-11-27] MEDS: METOPROLOL SUCCINATE EXT REL 50 MG TABCR PO (09:19)
[2024-11-27] MEDS: MIRTAZAPINE 15 MG TABLET PO (09:19)
[2024-11-27] MEDS: TAMSULOSIN HCL 0.4 MG CAPSULE PO (09:19)
[2024-11-27] MEDS: DIGOXIN TAB 125 MCG TABLET PO (09:19)
[2024-11-27] MEDS: LOSARTAN POTASSIUM 50 MG TABLET PO (09:19)
[2024-11-27] MEDS: FOLIC ACID 1 MG TABLET PO (09:19)
[2024-11-27] MEDS: BUPRENORPHINE/NALOXONE (*CRX) 4 MG/1 MG SL FILM 1 EACH SUBLINGUAL ×4 (09:20→20:59)
[2024-11-27] MEDS: ACETAMINOPHEN 325 MG TABLET 650 MG PO ×2 (09:22→17:27)
[2024-11-27] MEDS: chlordiazePOXIDE (*CRX) 25 MG CAPSULE 50 MG PO ×3 (11:13→23:57)
[2024-11-27 11:47] LABS: Anion Gap 5 mmol/L (4-12); Blood Urea Nitrogen 27 mg/dL (9-20); Calcium 8.5 mg/dL (8.4-10.2); Carbon Dioxide 30 mmol/L (22-30); Chloride 98 mmol/L (98-107); Estimated CRCL calculation 73 ml/min; Estimated Glomerular Filt Rate > 60; Glucose 166 mg/dL (65-110); Potassium 3.6 mmol/L (3.4-5.0); Sodium 133 mmol/L (137-145)
[2024-11-27 12:39] LABS: Glucose Point of Care 184 mg/dl (65-105)
--- NOTE | 2024-11-27 14:03 | PM.IMPN ---
Progress Note: A&P Assessment and Plan (1) Atrial fibrillation with rapid ventricular response: Code(s): I48.91 - Unspecified atrial fibrillation Status: Acute (2) Sepsis: Qualifiers: Sepsis type: sepsis due to unspecified organism Sepsis acute organ dysfunction status: without acute organ dysfunction Qualified Code(s): A41.9 - Sepsis, unspecified organism Code(s): A41.9 - Sepsis, unspecified organism Status: Acute (3) Opiate overdose: Qualifiers: Encounter type: initial encounter Injury intent: accidental or unintentional Qualified Code(s): T40.601A - Poisoning by unspecified narcotics, accidental (unintentional), initial encounter Code(s): T40.601A - Poisoning by unspecified narcotics, accidental (unintentional), initial encounter Status: Acute (4) Acute dehydration: Code(s): E86.0 - Dehydration Status: Acute (5) Alcohol abuse: Code(s): F10.10 - Alcohol abuse, uncomplicated Status: Acute (6) Lactic acidosis: Code(s): E87.20 - Acidosis, unspecified Status: Acute (7) Cardiomyopathy: Qualifiers: Cardiomyopathy type: unspecified Qualified Code(s): I42.9 - Cardiomyopathy, unspecified Code(s): I42.9 - Cardiomyopathy, unspecified Status: Acute (8) Tobacco abuse disorder: Code(s): Z72.0 - Tobacco use Status: Acute (9) BPH with urinary obstruction: Code(s): N40.1 - Benign prostatic hyperplasia with lower urinary tract symptoms; N13.8 - Other obstructive and reflux uropathy Status: Acute (10) Opiate withdrawal: Code(s): F11.93 - Opioid use, unspecified with withdrawal Status: Acute (11) Alcohol withdrawal: Code(s): F10.939 - Alcohol use, unspecified with withdrawal, unspecified Status: Acute (12) Atrial fibrillation: Code(s): I48.91 - Unspecified atrial fibrillation Status: Chronic Plan 64-year-old male with a past medical history of polysubstance abuse, alcohol abuse, tobacco dependence cardiomyopathy, atrial fibrillation and COPD who presented to the ER from home via EMS due to being found unresponsive. Patient has history of fentanyl abuse either snorting or IV injection. he received 6 mg of IV Narcan with return of mentation and breathing. He was noted to be tachycardic with heart rates in the 180s in the field. Alcohol withdrawal and fentanyl withdrawal When I saw exam patient, patient was somnolent, agitated, patient was diaphoretic,pulling lines Patient also has a tachycardia tachypnea, patient has visual hallucination Patient has severe high alcohol withdrawal and opiate withdrawal Patient received different p.o., Ativan push 2 mg x 2 and 1 mg IV push in public transportation inspector Patient still agitated, diaphoretic Discussed the case with golf cart repairer, move patient to ICU for close monitoring and start better diet as for sedation Also provide thiamine folic acid Anxiety is well controlled today, patient is still Precedex infusion that is tapered down 11/27 Sepsis Patient is a tachycardia tachypnea, leukocytosis, lactic acidosis, meeting criteria of sepsis UA shows pyuria No bacterial growth from blood culture urine culture Provide fluid resuscitation Ceftriaxone 1 mg IV daily Complicated UTI Patient has BPH UA showed pyuria Antibiotics see above No growth from urine culture AFib RVR Uncontrolled heart rate Likely secondary to alcohol withdrawal, opioid withdrawal, dehydration, infection Started Cardizem drip Continue Xarelto p.o. Continue metoprolol p.o. rate is controlled off Cardizem drip 11/27 COPD exacerbation Start bronchodilators Start O2 therapy to keep pulse of 92 Dehydration ELEVATED BUN CREATININE RATIO 41/0.68 Started lactated Ringer IV 100 mL/hour Corrected Appreciate golf cart repairer consultation, continue monitor patient closely in ICU today Subjective Date/time seen: 11/27/24 14:03 Interval history: I saw examined patient today, patient is lethargic but able cancer question, oriented x3, patient feels anxiety is well controlled, denies flow sedation. Patient is not diaphoretic. Telemetry showed AFib RVR but rated better controlled. Patient afebrile. Exam Narrative: GENERAL: Ill-appearing, diaphoresis,, in no acute distress. Well-nourished. - EYES: EOMI. Anicteric. - HENT: Moist mucous membranes. - LUNGS: Clear to auscultation bilaterally, no wheezing, rhonchi, or rales. - CARDIOVASCULAR: Irregular irregular rhythm, tachycardia. No murmur. No JVD. - ABDOMEN: Soft, non-tender and non-distended. No palpable masses. - EXTREMITIES: No edema. Peripheral pulses 2+. Non-tender. - NEUROLOGIC: No focal neurological deficits. CN II-XII grossly intact. - PSYCHIATRIC: Somnolent,, Alert and oriented x 3. mood and affect: Agitated. - SKIN: No rashes or lesions. Warm. - LYMPH: No cervical lymphadenopathy. Objective Data Vital Signs Vital Signs: Vital Signs - 24 hr 11/26/24 14:09 11/26/24 14:53 11/26/24 16:00 Temperature 98.4 F Pulse Rate 81 90 85 Pulse Rate [Bilateral Radial Palpation] Pulse Rate [Monitor] Respiratory Rate 21 H 37 H 29 H Blood Pressure 129/79 Pulse Oximetry 92 Oxygen Delivery 11/26/24 16:00 11/26/24 16:00 11/26/24 16:00 Temperature Pulse Rate 91 Pulse Rate [Bilateral Radial Palpation] Pulse Rate [Monitor] 97 Respiratory Rate Blood Pressure Pulse Oximetry Oxygen Delivery Room Air 11/26/24 16:00 11/26/24 16:00 11/26/24 17:24 Temperature Pulse Rate 81 79 81 Pulse Rate [Bilateral Radial Palpation] Pulse Rate [Monitor] Respiratory Rate 31 H 26 H Blood Pressure 137/100 H Pulse Oximetry Oxygen Delivery 11/26/24 18:00 11/26/24 18:00 11/26/24 18:04 Temperature Pulse Rate 75 70 71 Pulse Rate [Bilateral Radial Palpation] Pulse Rate [Monitor] Respiratory Rate 20 Blood Pressure 116/82 116/82 Pulse Oximetry 93 Oxygen Delivery 11/26/24 18:05 11/26/24 19:10 11/26/24 19:10 Temperature Pulse Rate 71 70 70 Pulse Rate [Bilateral Radial Palpation] Pulse Rate [Monitor] Respiratory Rate 20 Blood Pressure 110/83 110/83 Pulse Oximetry Oxygen Delivery 11/26/24 20:00 11/26/24 20:00 11/26/24 20:00 Temperature 98 F Pulse Rate 73 73 Pulse Rate [Bilateral Radial Palpation] Pulse Rate [Monitor] 69 Respiratory Rate 24 H 24 H Blood Pressure 114/72 114/72 Pulse Oximetry 94 Oxygen Delivery 11/26/24 20:00 11/26/24 20:00 11/26/24 20:00 Temperature Pulse Rate 73 58 L Pulse Rate [Bilateral Radial Palpation] Pulse Rate [Monitor] Respiratory Rate Blood Pressure 114/72 Pulse Oximetry Oxygen Delivery Room Air 11/26/24 20:45 11/26/24 21:34 11/26/24 21:34 Temperature Pulse Rate 72 69 69 Pulse Rate [Bilateral Radial Palpation] Pulse Rate [Monitor] Respiratory Rate 20 22 H 22 H Blood Pressure Pulse Oximetry 96 Oxygen Delivery Room Air 11/26/24 22:00 11/26/24 22:00 11/26/24 22:00 Temperature Pulse Rate 62 62 62 Pulse Rate [Bilateral Radial Palpation] Pulse Rate [Monitor] Respiratory Rate 25 H Blood Pressure 112/85 Pulse Oximetry Oxygen Delivery 11/26/24 22:00 11/26/24 23:20 11/27/24 00:00 Temperature Pulse Rate 62 61 Pulse Rate [Bilateral Radial Palpation] Pulse Rate [Monitor] 62 Respiratory Rate 25 H 21 H Blood Pressure 112/85 102/75 Pulse Oximetry 92 Oxygen Delivery 11/27/24 00:00 11/27/24 00:00 11/27/24 00:00 Temperature Pulse Rate 57 L 57 L 65 Pulse Rate [Bilateral Radial Palpation] Pulse Rate [Monitor] Respiratory Rate 23 H Blood Pressure 102/75 Pulse Oximetry Oxygen Delivery 11/27/24 00:00 11/27/24 00:01 11/27/24 02:00 Temperature Pulse Rate 71 65 Pulse Rate [Bilateral Radial Palpation] Pulse Rate [Monitor] Respiratory Rate 24 H 25 H Blood Pressure 102/75 Pulse Oximetry 94 Oxygen Delivery Room Air 11/27/24 02:00 11/27/24 02:00 11/27/24 02:37 Temperature Pulse Rate 65 65 67 Pulse Rate [Bilateral Radial Palpation] Pulse Rate [Monitor] Respiratory Rate 25 H 20 Blood Pressure 116/73 Pulse Oximetry 93 Oxygen Delivery 11/27/24 02:45 11/27/24 04:00 11/27/24 04:00 Temperature 97.9 F Pulse Rate 76 68 68 Pulse Rate [Bilateral Radial Palpation] Pulse Rate [Monitor] Respiratory Rate 20 24 H Blood Pressure 125/86 Pulse Oximetry 93 Oxygen Delivery 11/27/24 04:00 11/27/24 04:00 11/27/24 04:00 Temperature Pulse Rate 68 Pulse Rate [Bilateral Radial Palpation] Pulse Rate [Monitor] 68 Respiratory Rate 24 H Blood Pressure 125/86 Pulse Oximetry Oxygen Delivery Room Air 11/27/24 06:00 11/27/24 06:00 11/27/24 06:00 Temperature Pulse Rate 80 89 89 Pulse Rate [Bilateral Radial Palpation] Pulse Rate [Monitor] Respiratory Rate 25 H 25 H Blood Pressure 125/102 H Pulse Oximetry 95 Oxygen Delivery 11/27/24 06:19 11/27/24 06:38 11/27/24 06:38 Temperature Pulse Rate 84 84 Pulse Rate [Bilateral Radial Palpation] Pulse Rate [Monitor] Respiratory Rate 23 H 23 H Blood Pressure 136/99 H Pulse Oximetry Oxygen Delivery 11/27/24 08:00 11/27/24 08:00 11/27/24 08:00 Temperature Pulse Rate 88 Pulse Rate [Bilateral Radial Palpation] Pulse Rate [Monitor] 85 Respiratory Rate Blood Pressure 136/106 H Pulse Oximetry 95 Oxygen Delivery Room Air 11/27/24 08:00 11/27/24 08:00 11/27/24 08:00 Temperature 98.1 F 98.1 F Pulse Rate 85 93 85 Pulse Rate [Bilateral Radial Palpation] Pulse Rate [Monitor] Respiratory Rate 16 28 H 16 Blood Pressure 136/106 H 144/123 H Pulse Oximetry 96 94 Oxygen Delivery 11/27/24 08:28 11/27/24 08:28 11/27/24 08:38 Temperature Pulse Rate 83 85 Pulse Rate [Bilateral Radial Palpation] Pulse Rate [Monitor] Respiratory Rate 21 H 17 Blood Pressure Pulse Oximetry 95 Oxygen Delivery Room Air 11/27/24 09:19 11/27/24 09:19 11/27/24 10:00 Temperature Pulse Rate 96 91 91 Pulse Rate [Bilateral Radial Palpation] Pulse Rate [Monitor] Respiratory Rate Blood Pressure Pulse Oximetry Oxygen Delivery 11/27/24 10:00 11/27/24 10:00 11/27/24 12:00 Temperature 98.1 F Pulse Rate 91 91 97 Pulse Rate [Bilateral Radial Palpation] Pulse Rate [Monitor] Respiratory Rate 28 H 28 H 18 Blood Pressure 144/123 H 132/78 Pulse Oximetry 94 94 Oxygen Delivery 11/27/24 12:00 11/27/24 12:00 11/27/24 12:00 Temperature Pulse Rate 104 H Pulse Rate [Bilateral Radial Palpation] 97 Pulse Rate [Monitor] 94 Respiratory Rate 16 Blood Pressure 132/78 Pulse Oximetry 94 Oxygen Delivery Room Air Intake/Output Intake/Output: Intake & Output 11/24/24 11/25/24 11/26/24 11/27/24 23:59 23:59 23:59 23:59 Intake Total 1999 1570.0 1666.4 Output Total 405 600 Balance 1999 1165.0 1066.4 Meds/Results Medications: Active Medications Generic Name Dose Route Start Last Admin Trade Name Fidelq PRN Reason Stop Dose Admin Acetaminophen 650 mg 11/25/24 22:08 11/27/24 09:22 Acetaminophen 325 Mg Tablet PO 650 mg Q4H PRN Administration Mild Pain (1-3) or Fever Buprenorphine/Naloxone 1 each 11/27/24 09:00 11/27/24 13:51 Buprenorphine/Naloxone (*Crx) 4 Mg/1 Mg Sl Film SUBLINGUAL 1 each QID MIGUEL A Administration Chlordiazepoxide HCl 50 mg 11/27/24 12:00 11/27/24 11:13 Chlordiazepoxide (*Crx) 25 Mg Capsule PO 50 mg Q6HR MIGUEL A Administration Digoxin 125 mcg 11/26/24 09:00 11/27/24 09:19 Digoxin Tab 125 Mcg Tablet PO 125 mcg DAILY MIGUEL A Administration Fluticasone/Umeclidinium/Vilanterol 1 puff 11/26/24 08:00 11/27/24 08:27 Fluticasone/Umeclidin/Vilanter 200-62.5-25 Mcg Ellipta INHALATION 1 puff DAILYRT MIGUEL A Administration Folic Acid 1 mg 11/26/24 09:00 11/27/24 09:19 Folic Acid 1 Mg Tablet PO 1 mg DAILY MIGUEL A Administration Gabapentin 300 mg 11/26/24 09:00 11/27/24 09:19 Gabapentin 300 Mg Capsule PO 300 mg DAILY MIGUEL A Administration Diltiazem HCl 100 mg in 100 mls @ 0 mls/hr 11/26/24 03:10 11/27/24 00:00 Cardizem 100 Mg/100 Ml IV CONT 0 mg/hr .Q0M MIGUEL A 0 mls/hr Infusion 0 MG/HR Ceftriaxone Sodium 1 gm in 50 mls @ 100 mls/hr 11/26/24 07:00 11/27/24 06:38 Rocephin 1 Gm/Ns 50 Ml IVPB Infused Q24H MIGUEL A Infusion Dexmedetomidine HCl 400 mcg in 100 mls @ 2.98 mls/hr 11/26/24 13:35 11/27/24 12:00 Precedex 400 Mcg/100 Ml IV CONT 0.2 mcg/kg/hr .[id number] MIGUEL A 2.98 mls/hr Titration Protocol 0.2 MCG/KG/HR Ipratropium [place] 0.5 mg 11/26/24 20:00 11/27/24 08:27 Ipratropium Br 0.02% Inh Soln 0.5 Mg/2.5 Ml Vial INHALATION 0.5 mg Q6HRT MIGUEL A Administration Levalbuterol HCl 0.63 mg 11/26/24 20:00 11/27/24 08:27 Levalbuterol Neb 1.25 Mg/3 Ml INHALATION 0.63 mg Q6HRT MIGUEL A Administration Lorazepam 2 mg 11/26/24 07:10 11/26/24 11:49 Lorazepam Inj (*Crx) 2 Mg/Ml Vial IV PUSH 2 mg Q2H PRN Administration CIWA > 15 Lorazepam 2 mg 11/26/24 07:10 11/26/24 09:21 Lorazepam Inj (*Crx) 2 Mg/Ml Vial IV PUSH 2 mg Q4H PRN Administration CIWA 8-15 Lorazepam 1 mg 11/26/24 08:30 11/26/24 13:31 Lorazepam Inj (*Crx) 2 Mg/Ml Vial IV PUSH 1 mg ONCE PRN Administration Anxiety Losartan Potassium 50 mg 11/26/24 09:00 11/27/24 09:19 Losartan Potassium 50 Mg Tablet PO 50 mg DAILY MIGUEL A Administration Metoprolol Succinate 50 mg 11/26/24 09:00 11/27/24 09:19 Metoprolol Succinate Ext Rel 50 Mg Tabcr PO 50 mg QAM MIGUEL A Administration Metoprolol Tartrate 5 mg 11/25/24 19:26 11/25/24 21:55 Metoprolol Tartrate Inj 5 Mg/5 Ml Vial IV PUSH 5 mg Q5M PRN Administration Afib RVR HR >110 Mirtazapine 15 mg 11/26/24 09:00 11/27/24 09:19 Mirtazapine 15 Mg Tablet PO 15 mg DAILY MIGUEL A Administration Multi-Ingred Cream/Lotion/Oil/Oint 1 applic 11/26/24 13:40 11/27/24 09:20 Mineral Oil/White Petrolatum Ointment EACH EYE Not Given Q12HR [facility] Nicotine 1 patch 11/26/24 09:27 11/27/24 02:14 Nicotine (*Pbkc) 21 Mg Patch TRANSDERM 1 patch DAILY PRN Administration Nicotine withdrawal Ondansetron HCl 4 mg 11/25/24 22:08 11/27/24 09:15 Ondansetron Inj 4 Mg/2 Ml Vial IV PUSH 4 mg Q4H PRN Administration Nausea Rivaroxaban 20 mg 11/26/24 09:00 11/27/24 09:19 Rivaroxaban 20 Mg Tablet PO 20 mg DAILY MIGUEL A Administration Sertraline HCl 100 mg 11/26/24 09:00 11/27/24 09:19 Sertraline Hcl 50 Mg Tablet PO 100 mg DAILY MIGUEL A Administration Tamsulosin HCl 0.4 mg 11/26/24 09:20 11/27/24 09:19 Tamsulosin Hcl 0.4 Mg Capsule PO 0.4 mg QAM MIGUEL A Administration Thiamine HCl 100 mg 11/26/24 09:00 11/27/24 09:19 Thiamine Hcl 100 Mg Tablet PO 100 mg QAM MIGUEL A Administration Radiology Results: ITS Impressions Chest X-Ray 11/25/24 19:08 IMPRESSION: Severe centrilobular emphysema without focal infiltrate or effusion. Labs Labs: Laboratory Results - last 24 hr 11/26/24 11/27/24 11/27/24 17:16 00:02 06:07 WBC 12.5 H RBC 5.01 Hgb 15.2 Hct 44.9 MCV 89.6 MCH 30.3 MCHC 33.9 RDW 14.8 H Plt Count 170 MPV 9.0 Immature Gran % (Auto) 0.6 H Neut % (Auto) 74.8 H Lymph % (Auto) 14.5 L [place] % (Auto) 9.8 H Eos % (Auto) 0.1 Baso % (Auto) 0.2 Lymph # (Auto) 1.82 [place] # (Auto) 1.2 H Eos # (Auto) 0.0 Baso # (Auto) 0.0 Abs Immat Gran (auto) 0.07 H Absolute Neuts (auto) 9.4 H Absolute Nucleated RBC 0.000 Nucleated RBC % 0.0 Sodium 133 L Potassium 3.7 Chloride 98 Carbon Dioxide 29 Anion Gap 6 BUN 28 H Creatinine 0.67 L Estim Creat Clear Calc 80 Estimated GFR > 60 Glucose 139 H POC Capillary Glucose 158 H 148 H Lactic Acid 1.2 Calcium 8.2 L Phosphorus 2.8 Magnesium 1.8 Total Bilirubin 1.7 H AST 27 ALT 20 Alkaline Phosphatase 68 Total Protein 6.0 L Albumin 3.2 L 11/27/24 11/27/24 11:26 12:35 WBC RBC Hgb Hct MCV MCH MCHC RDW Plt Count MPV Immature Gran % (Auto) Neut % (Auto) Lymph % (Auto) [place] % (Auto) Eos % (Auto) Baso % (Auto) Lymph # (Auto) [place] # (Auto) Eos # (Auto) Baso # (Auto) Abs Immat Gran (auto) Absolute Neuts (auto) Absolute Nucleated RBC Nucleated RBC % Sodium 133 L Potassium 3.6 Chloride 98 Carbon Dioxide 30 Anion Gap 5 BUN 27 H Creatinine 0.74 Estim Creat Clear Calc 73 Estimated GFR > 60 Glucose 166 H POC Capillary Glucose 184 H Lactic Acid Calcium 8.5 Phosphorus Magnesium Total Bilirubin AST ALT Alkaline Phosphatase Total Protein Albumin
[2024-11-27] MEDS: LORazepam INJ (*CRX) 2 MG/ML VIAL IV PUSH (21:05)
[2024-11-27] MEDS: METOPROLOL TARTRATE INJ 5 MG/5 ML VIAL IV PUSH (23:22)
--- NOTE | 2024-11-27 23:26 | PC.NURSE ---
[address] Zepeda about heart rate 120-130s as high as 155. Order received for metoprolol 5mg IV push q5min over 15min PRN and to make sure potassium and mag were drawn today.
[2024-11-28] VITALS (18 sets, daily range): BP systolic 121–148; BP diastolic 79–102; PULSE 69–117; RESP 14–18; TEMP 36.7–37.2; O2SAT 91–97
[2024-11-28 00:08] LABS: Glucose Point of Care 133 mg/dl (65-105)
[2024-11-28] MEDS: LEVALBUTEROL NEB 1.25 MG/3 ML 0.63 MG INHALATION ×3 (02:02→20:30)
[2024-11-28] MEDS: IPRATROPIUM BR 0.02% INH SOLN 0.5 MG/2.5 ML VIAL INHALATION ×4 (02:02→20:30)
[2024-11-28 03:59] LABS: Basophils Percent Auto 0.5 % (0.2-1.2); Eosinophils Absolute Auto 0.1 K/mm3 (0-0.3); Eosinophils Percent Auto 0.8 % (0-4.4); Hematocrit 42.3 % (42.0-52.0); Immature Granulocyte Absolute 0.02 K/mm3 (0.00-0.031); Immature Granulocyte Percent A 0.2 % (0-0.5); Lymphocytes Absolute Auto 2.45 K/mm3 (0.9-3.2); Lymphocytes Percent Auto 29.2 % (18.3-44.2); Mean Corpuscular HGB Conc 33.1 g/dl (32-36); Mean Corpuscular Hemoglobin 30.1 pg (26-34); Mean Platelet Volume 9.9 fl (7.4-10.4); Monocytes Absolute Auto 0.8 K/mm3 (0.1-0.6); Monocytes Percent Auto 9.1 % (2.6-8.5); Neutrophils Percent Auto 60.2 % (45.5-73.1); Platelet Count Result 150 k/mm3 (150-375); Red Blood Count 4.65 M/mm3 (4.6-6.20); Red Cell Distribution Width 14.6 % (11.5-14.5); White Blood Count 8.4 K/mm3 (4.5-10.0)
[2024-11-28 04:12] LABS: Alanine Aminotransferase 21 U/L (6-50); Albumin Level 3.2 g/dL (3.5-5.1); Alkaline Phosphatase 62 U/L (38-126); Anion Gap 7 mmol/L (4-12); Aspartate Amino Transferase 26 U/L (17-59); Bilirubin,Total 1.1 mg/dL (0.2-1.3); Blood Urea Nitrogen 30 mg/dL (9-20); Calcium 8.2 mg/dL (8.4-10.2); Carbon Dioxide 30 mmol/L (22-30); Chloride 98 mmol/L (98-107); Estimated CRCL calculation 65 ml/min; Estimated Glomerular Filt Rate > 60; Glucose 129 mg/dL (65-110); Magnesium 1.9 mg/dL (1.6-2.3); Phosphorus 2.9 mg/dL (2.5-4.5); Potassium 3.2 mmol/L (3.4-5.0); Sodium 135 mmol/L (137-145)
[2024-11-28] MEDS: ACETAMINOPHEN 325 MG TABLET 650 MG PO (04:33)
[2024-11-28] MEDS: chlordiazePOXIDE (*CRX) 25 MG CAPSULE 50 MG PO ×3 (06:10→18:05)
[2024-11-28 06:20] LABS: Glucose Point of Care 154 mg/dl (65-105)
[2024-11-28] MEDS: METOPROLOL SUCCINATE EXT REL 25 MG TABCR 75 MG PO (08:09)
[2024-11-28] MEDS: THIAMINE HCL 100 MG TABLET PO (08:09)
[2024-11-28] MEDS: RIVAROXABAN 20 MG TABLET PO (08:09)
[2024-11-28] MEDS: SERTRALINE HCL 50 MG TABLET 100 MG PO (08:09)
[2024-11-28] MEDS: GABAPENTIN 300 MG CAPSULE PO (08:09)
[2024-11-28] MEDS: FOLIC ACID 1 MG TABLET PO (08:09)
[2024-11-28] MEDS: DIGOXIN TAB 125 MCG TABLET PO (08:09)
[2024-11-28] MEDS: LOSARTAN POTASSIUM 50 MG TABLET PO (08:10)
[2024-11-28] MEDS: MIRTAZAPINE 15 MG TABLET PO (08:10)
[2024-11-28] MEDS: FUROSEMIDE 40 MG TABLET PO (08:10)
[2024-11-28] MEDS: POTASSIUM CHLORIDE 20 MEQ ER TABLET PO (08:10)
[2024-11-28] MEDS: TAMSULOSIN HCL 0.4 MG CAPSULE PO (08:10)
[2024-11-28] MEDS: POTASSIUM CHLORIDE 20 MEQ ER TABLET 40 MEQ PO (08:10)
[2024-11-28] MEDS: BUPRENORPHINE/NALOXONE (*CRX) 4 MG/1 MG SL FILM 1 EACH SUBLINGUAL ×4 (08:11→22:01)
[2024-11-28] MEDS: FLUTICASONE/UMECLIDIN/VILANTER 200-62.5-25 MCG ELLIPTA 1 PUFF INHALATION (08:33)
[2024-11-28] MEDS: ONDANSETRON INJ 4 MG/2 ML VIAL IV PUSH (08:38)
--- NOTE | 2024-11-28 09:04 | WPDINTPN ---
Progress Note: A&P Assessment and Plan (1) Sepsis: Code(s): A41.9 - Sepsis, unspecified organism Status: Acute Assessment and Plan: Patient presented with dehydration, opioid overdose, was given Narcan 6 mg by EMS after which she woke up and had normal respirations. -patient had leukocytosis, lactic acidosis, tachypnea, nausea, vomiting -UA reflective of UTI -continue ceftriaxone (11/26) -blood pressures remained stable -renal function is normal -11/26: Blood cultures negative x2 so far -11/25: Urine cultures: Gram-negative bacilli (2) Alcohol withdrawal: Code(s): F10.939 - Alcohol use, unspecified with withdrawal, unspecified Status: Acute Assessment and Plan: Patient now in alcohol withdrawal for which he is being transferred to the ICU -CIWA scores have gone from 8 to22 patient has received multiple doses of Ativan, also on Librium -patient is getting agitated, trying to pull on lines and has removed 1 line, removing leads as well as O2 sat monitor -patient brought to the ICU, started on Precedex infusion will maintain RASS of 0 to -1 11/27: Continue to wean Precedex infusion, increased Librium 11/28: Has been off Precedex infusion since 3:00 p.m. on 11/27. Continue CIWA protocol, Librium, p.r.n. Ativan -continue folic acid and thiamine (3) Opiate withdrawal: Code(s): F11.93 - Opioid use, unspecified with withdrawal Status: Acute Assessment and Plan: Will continue to monitor for opiate withdrawal -according to the records, patient had been treated previously with Suboxone but this had not been refilled since September 22. -continue Suboxone at half the dose, discussed with pharmacy, to avoid withdrawal (4) Atrial fibrillation with rapid ventricular response: Code(s): I48.91 - Unspecified atrial fibrillation Status: Acute Assessment and Plan: Patient has a history of AFib, patient was in AFib RVR on admission, improved with IV fluids as patient was dehydrated, also methamphetamine use along with opioid use. -OFF Cardizem infusion -continue Xarelto, digoxin and Lasix -increase metoprolol (5) BPH with urinary obstruction: Code(s): N40.1 - Benign prostatic hyperplasia with lower urinary tract symptoms; N13.8 - Other obstructive and reflux uropathy Status: Acute Assessment and Plan: Patient's bladder scan at over 600 mL in urine, Lau catheter was inserted. (6) COPD (chronic obstructive pulmonary disease): Code(s): J44.9 - Chronic obstructive pulmonary disease, unspecified Status: Chronic Assessment and Plan: Patient with history of COPD -continue bronchodilators, -continue Ellipta (7) Acute dehydration: Code(s): E86.0 - Dehydration Status: Acute Assessment and Plan: Adequately fluid-resuscitated (8) Hypertension: Code(s): I10 - Essential (primary) hypertension Status: Acute Assessment and Plan: Continue losartan and metoprolol Plan DVT prophylaxis: Xarelto Stress ulcer prophylaxis: Not indicated Nutrition: Heart healthy diet Code Status: Full code Critical Care Time Spent: 32 minutes Patient may transfer the ICU if okay with hospitalist Due to a high probability of clinically significant, life threatening deterioration, the patient required my highest level of preparedness to intervene emergently and I personally spent this critical care time directly and personally managing the patient. This critical care time included obtaining a history; examining the patient; pulse oximetry; ordering and review of studies; arranging urgent treatment with development of a management plan; evaluation of patient's response to treatment; frequent reassessment; and discussions with other providers. It was exclusive of separately billable procedures and treating other patients and teaching time. Please see Assessment and Plan section and the rest of the note for further information on patient assessment and treatment This dictation may have been done utilizing a voice recognition system. Attempts have been made to correct errors. However, there may be uncorrected grammatical, spelling, and recognitions errors present. Subjective Date/time seen: 11/28/24 09:04 Interval history: Reason for consult: Alcohol withdrawal, methamphetamine abuse, AFib RVR 11/28/2024: Patient seen and examined the ICU, has been off Precedex infusion since 3:00 p.m. on 11/27/2024. Is awake, alert, oriented x3, pleasant gentleman in no acute distress, not agitated, is calm and answers to questions appropriately. Denies any chest pain, shortness of breath, abdominal pain, nausea, vomiting at this time. Urine output has been adequate, patient is afebrile and hemodynamically stable. Patient is tachycardic Review of Systems Review of Systems: All systems reviewed & are unremarkable except as noted in HPI and below Exam Narrative: General: Disheveled and malnourished individual currently in no acute distress HEENT:? Pupils equal and reactive, sclerae is flushed, dry oral mucosa Neck:? Supple Respiratory:? Clear to auscultation bilateral, no wheezing, adequate air entry Cardiac:? Irregularly irregular, tachycardia Abdomen:? Soft, nontender, nondistended, normoactive bowel sounds Extremities:? No edema, palpable pedal pulses Neuro:? Patient is awake, alert, oriented x3, is able to answer questions appropriately, follows simple commands Skin:? Scabs on lower extremities, bruising on upper extremities, Psych:? Control mentation and affect Objective Data Vital Signs Vital Signs: Vital Signs - 24 hr 11/27/24 09:19 11/27/24 09:19 11/27/24 10:00 Temperature Pulse Rate 96 91 91 Pulse Rate [Bilateral Radial Palpation] Pulse Rate [Monitor] Respiratory Rate Blood Pressure Pulse Oximetry Oxygen Delivery Oxygen Flow Rate 11/27/24 10:00 11/27/24 10:00 11/27/24 12:00 Temperature 98.1 F Pulse Rate 91 91 97 Pulse Rate [Bilateral Radial Palpation] Pulse Rate [Monitor] Respiratory Rate 28 H 28 H 18 Blood Pressure 144/123 H 132/78 Pulse Oximetry 94 94 Oxygen Delivery Oxygen Flow Rate 11/27/24 12:00 11/27/24 12:00 11/27/24 12:00 Temperature Pulse Rate 104 H Pulse Rate [Bilateral Radial Palpation] 97 Pulse Rate [Monitor] 94 Respiratory Rate 16 Blood Pressure 132/78 Pulse Oximetry 94 Oxygen Delivery Room Air Oxygen Flow Rate 11/27/24 12:00 11/27/24 14:00 11/27/24 14:00 Temperature 97.9 F Pulse Rate 102 H 111 H 111 H Pulse Rate [Bilateral Radial Palpation] Pulse Rate [Monitor] Respiratory Rate 19 19 Blood Pressure 97/68 L Pulse Oximetry 95 Oxygen Delivery Oxygen Flow Rate 11/27/24 14:00 11/27/24 14:44 11/27/24 14:57 Temperature Pulse Rate 105 H 94 91 Pulse Rate [Bilateral Radial Palpation] Pulse Rate [Monitor] Respiratory Rate 16 17 Blood Pressure Pulse Oximetry Oxygen Delivery Oxygen Flow Rate 11/27/24 15:00 11/27/24 16:00 11/27/24 16:00 Temperature Pulse Rate 108 H 97 Pulse Rate [Bilateral Radial Palpation] Pulse Rate [Monitor] 97 Respiratory Rate 18 21 H Blood Pressure 117/80 Pulse Oximetry Oxygen Delivery Oxygen Flow Rate 11/27/24 16:00 11/27/24 16:00 11/27/24 16:00 Temperature 98.3 F Pulse Rate 94 97 Pulse Rate [Bilateral Radial Palpation] Pulse Rate [Monitor] Respiratory Rate 21 H Blood Pressure 117/80 Pulse Oximetry 95 98 Oxygen Delivery Room Air Oxygen Flow Rate 11/27/24 18:00 11/27/24 18:00 11/27/24 18:35 Temperature Pulse Rate 94 94 94 Pulse Rate [Bilateral Radial Palpation] Pulse Rate [Monitor] Respiratory Rate 20 20 Blood Pressure 124/75 Pulse Oximetry 97 Oxygen Delivery Oxygen Flow Rate 11/27/24 20:00 11/27/24 20:00 11/27/24 20:00 Temperature Pulse Rate 93 99 Pulse Rate [Bilateral Radial Palpation] Pulse Rate [Monitor] 116 H Respiratory Rate 18 Blood Pressure 123/90 127/90 Pulse Oximetry Oxygen Delivery Oxygen Flow Rate 11/27/24 20:00 11/27/24 20:10 11/27/24 20:13 Temperature Pulse Rate 71 Pulse Rate [Bilateral Radial Palpation] Pulse Rate [Monitor] Respiratory Rate 20 Blood Pressure Pulse Oximetry 94 93 Oxygen Delivery Room Air Room Air Oxygen Flow Rate 11/27/24 20:28 11/27/24 21:00 11/27/24 22:00 Temperature 97.7 F Pulse Rate 96 115 H 105 H Pulse Rate [Bilateral Radial Palpation] Pulse Rate [Monitor] Respiratory Rate 22 H 18 Blood Pressure 123/90 Pulse Oximetry 94 Oxygen Delivery Oxygen Flow Rate 11/27/24 22:00 11/27/24 23:22 11/28/24 00:00 Temperature Pulse Rate 105 H 117 H Pulse Rate [Bilateral Radial Palpation] Pulse Rate [Monitor] 101 H Respiratory Rate 17 Blood Pressure 108/62 134/88 Pulse Oximetry 90 Oxygen Delivery Oxygen Flow Rate 11/28/24 00:00 11/28/24 00:00 11/28/24 00:00 Temperature 98.4 F Pulse Rate 99 101 H Pulse Rate [Bilateral Radial Palpation] Pulse Rate [Monitor] Respiratory Rate 15 Blood Pressure 134/88 Pulse Oximetry 94 94 Oxygen Delivery Room Air Oxygen Flow Rate 11/28/24 01:46 11/28/24 02:00 11/28/24 02:00 Temperature Pulse Rate 101 H 101 H Pulse Rate [Bilateral Radial Palpation] Pulse Rate [Monitor] Respiratory Rate 17 Blood Pressure 132/96 H Pulse Oximetry 93 96 Oxygen Delivery Nasal Cannula Oxygen Flow Rate 2 11/28/24 02:02 11/28/24 02:20 11/28/24 04:35 Temperature Pulse Rate 103 H 69 101 H Pulse Rate [Bilateral Radial Palpation] Pulse Rate [Monitor] Respiratory Rate 15 18 15 Blood Pressure Pulse Oximetry 97 Oxygen Delivery Room Air Oxygen Flow Rate 11/28/24 04:35 11/28/24 04:35 11/28/24 04:35 Temperature 98.4 F Pulse Rate 101 H 101 H Pulse Rate [Bilateral Radial Palpation] Pulse Rate [Monitor] 101 H Respiratory Rate 15 Blood Pressure 135/81 135/81 Pulse Oximetry 97 Oxygen Delivery Oxygen Flow Rate 11/28/24 06:00 11/28/24 06:00 11/28/24 08:00 Temperature 98.1 F Pulse Rate 106 H 106 H 117 H Pulse Rate [Bilateral Radial Palpation] Pulse Rate [Monitor] Respiratory Rate 18 14 Blood Pressure 148/102 H 141/82 H Pulse Oximetry 91 92 Oxygen Delivery Oxygen Flow Rate 11/28/24 08:00 11/28/24 08:00 11/28/24 08:39 Temperature Pulse Rate 112 H 108 H Pulse Rate [Bilateral Radial Palpation] Pulse Rate [Monitor] Respiratory Rate 15 Blood Pressure Pulse Oximetry Oxygen Delivery Room Air Oxygen Flow Rate 11/28/24 08:40 Temperature Pulse Rate Pulse Rate [Bilateral Radial Palpation] Pulse Rate [Monitor] Respiratory Rate Blood Pressure Pulse Oximetry 97 Oxygen Delivery Room Air Oxygen Flow Rate Intake/Output Intake/Output: Intake & Output 11/25/24 11/26/24 11/27/24 11/28/24 23:59 23:59 23:59 23:59 Intake Total 1999 1570.0 2273.9 530 Output Total 405 1075 325 Balance 1999 1165.0 1198.9 205 Meds/Results Medications: Active Medications Generic Name Dose Route Start Last Admin Trade Name Freq PRN Reason Stop Dose Admin Acetaminophen 650 mg 11/25/24 22:08 11/28/24 04:33 Acetaminophen 325 Mg Tablet PO 650 mg Q4H PRN Administration Mild Pain (1-3) or Fever Buprenorphine/Naloxone 1 each 11/27/24 09:00 11/28/24 08:11 Buprenorphine/Naloxone (*Crx) 4 Mg/1 Mg Sl Film SUBLINGUAL 1 each QID MIGUEL A Administration Chlordiazepoxide HCl 50 mg 11/27/24 12:00 11/28/24 06:10 Chlordiazepoxide (*Crx) 25 Mg Capsule PO 50 mg Q6HR MIGUEL A Administration Digoxin 125 mcg 11/26/24 09:00 11/28/24 08:09 Digoxin Tab 125 Mcg Tablet PO 125 mcg DAILY MIGUEL A Administration Fluticasone/Umeclidinium/Vilanterol 1 puff 11/26/24 08:00 11/28/24 08:33 Fluticasone/Umeclidin/Vilanter 200-62.5-25 Mcg Ellipta INHALATION 1 puff DAILYRT MIGUEL A Administration Folic Acid 1 mg 11/26/24 09:00 11/28/24 08:09 Folic Acid 1 Mg Tablet PO 1 mg DAILY MIGUEL A Administration Furosemide 40 mg 11/28/24 09:00 11/28/24 08:10 Furosemide 40 Mg Tablet PO 40 mg DAILY MIGUEL A Administration Gabapentin 300 mg 11/26/24 09:00 11/28/24 08:09 Gabapentin 300 Mg Capsule PO 300 mg DAILY MIGUEL A Administration Diltiazem HCl 100 mg in 100 mls @ 0 mls/hr 11/26/24 03:10 11/27/24 00:00 Cardizem 100 Mg/100 Ml IV CONT 0 mg/hr .Q0M MIGUEL A 0 mls/hr Infusion 0 MG/HR Ceftriaxone Sodium 1 gm in 50 mls @ 100 mls/hr 11/26/24 07:00 11/28/24 06:59 Rocephin 1 Gm/Ns 50 Ml IVPB Infused Q24H MIGUEL A Infusion Ipratropium [place] 0.5 mg 11/26/24 20:00 11/28/24 08:33 Ipratropium Br 0.02% Inh Soln 0.5 Mg/2.5 Ml Vial INHALATION 0.5 mg Q6HRT MIGUEL A Administration Levalbuterol HCl 0.63 mg 11/26/24 20:00 11/28/24 08:33 Levalbuterol Neb 1.25 Mg/3 Ml INHALATION 0.63 mg Q6HRT MIGUEL A Administration Lorazepam 2 mg 11/26/24 07:10 11/26/24 11:49 Lorazepam Inj (*Crx) 2 Mg/Ml Vial IV PUSH 2 mg Q2H PRN Administration CIWA > 15 Lorazepam 2 mg 11/26/24 07:10 11/27/24 21:05 Lorazepam Inj (*Crx) 2 Mg/Ml Vial IV PUSH 2 mg Q4H PRN Administration CIWA 8-15 Lorazepam 1 mg 11/26/24 08:30 11/26/24 13:31 Lorazepam Inj (*Crx) 2 Mg/Ml Vial IV PUSH 1 mg ONCE PRN Administration Anxiety Losartan Potassium 50 mg 11/26/24 09:00 11/28/24 08:10 Losartan Potassium 50 Mg Tablet PO 50 mg DAILY MIGUEL A Administration Metoprolol Succinate 75 mg 11/28/24 09:00 11/28/24 08:09 Metoprolol Succinate Ext Rel 25 Mg Tabcr PO 75 mg QAM MIGUEL A Administration Metoprolol Tartrate 5 mg 11/28/24 07:56 Metoprolol Tartrate Inj 5 Mg/5 Ml Vial IV PUSH Q4H PRN Tachyarrhythmias Mirtazapine 15 mg 11/26/24 09:00 11/28/24 08:10 Mirtazapine 15 Mg Tablet PO 15 mg DAILY MIGUEL A Administration Multi-Ingred Cream/Lotion/Oil/Oint 1 applic 11/26/24 13:40 11/28/24 08:10 Mineral Oil/White Petrolatum Ointment EACH EYE Not Given Q12HR [facility] Nicotine 1 patch 11/26/24 09:27 11/27/24 02:14 Nicotine (*Pbkc) 21 Mg Patch TRANSDERM 1 patch DAILY PRN Administration Nicotine withdrawal Ondansetron HCl 4 mg 11/25/24 22:08 11/28/24 08:38 Ondansetron Inj 4 Mg/2 Ml Vial IV PUSH 4 mg Q4H PRN Administration Nausea Rivaroxaban 20 mg 11/26/24 09:00 11/28/24 08:09 Rivaroxaban 20 Mg Tablet PO 20 mg DAILY MIGUEL A Administration Sertraline HCl 100 mg 11/26/24 09:00 11/28/24 08:09 Sertraline Hcl 50 Mg Tablet PO 100 mg DAILY MIGUEL A Administration Tamsulosin HCl 0.4 mg 11/26/24 09:20 11/28/24 08:10 Tamsulosin Hcl 0.4 Mg Capsule PO 0.4 mg QAM MIGUEL A Administration Thiamine HCl 100 mg 11/26/24 09:00 11/28/24 08:09 Thiamine Hcl 100 Mg Tablet PO 100 mg QAM MIGUEL A Administration Radiology Results: ITS Impressions Chest X-Ray 11/25/24 19:08 IMPRESSION: Severe centrilobular emphysema without focal infiltrate or effusion. Labs Labs: Laboratory Results - last 24 hr 11/27/24 11/27/24 11/27/24 11:26 12:35 23:56 WBC RBC Hgb Hct MCV MCH MCHC RDW Plt Count MPV Immature Gran % (Auto) Neut % (Auto) Lymph % (Auto) [place] % (Auto) Eos % (Auto) Baso % (Auto) Lymph # (Auto) [place] # (Auto) Eos # (Auto) Baso # (Auto) Abs Immat Gran (auto) Absolute Neuts (auto) Absolute Nucleated RBC Nucleated RBC % Sodium 133 L Potassium 3.6 Chloride 98 Carbon Dioxide 30 Anion Gap 5 BUN 27 H Creatinine 0.74 Estim Creat Clear Calc 73 Estimated GFR > 60 Glucose 166 H POC Capillary Glucose 184 H 133 H Calcium 8.5 Phosphorus Magnesium Total Bilirubin AST ALT Alkaline Phosphatase Total Protein Albumin 11/28/24 11/28/24 03:31 06:14 WBC 8.4 RBC 4.65 Hgb 14.0 Hct 42.3 MCV 91.0 MCH 30.1 MCHC 33.1 RDW 14.6 H Plt Count 150 MPV 9.9 Immature Gran % (Auto) 0.2 Neut % (Auto) 60.2 Lymph % (Auto) 29.2 [place] % (Auto) 9.1 H Eos % (Auto) 0.8 Baso % (Auto) 0.5 Lymph # (Auto) 2.45 [place] # (Auto) 0.8 H Eos # (Auto) 0.1 Baso # (Auto) 0.0 Abs Immat Gran (auto) 0.02 Absolute Neuts (auto) 5.0 Absolute Nucleated RBC 0.000 Nucleated RBC % 0.0 Sodium 135 L Potassium 3.2 L Chloride 98 Carbon Dioxide 30 Anion Gap 7 BUN 30 H Creatinine 0.84 Estim Creat Clear Calc 65 Estimated GFR > 60 Glucose 129 H POC Capillary Glucose 154 H Calcium 8.2 L Phosphorus 2.9 Magnesium 1.9 Total Bilirubin 1.1 AST 26 ALT 21 Alkaline Phosphatase 62 Total Protein 6.0 L Albumin 3.2 L Quality VTE Prophylaxis VTE prophylaxis: pharmacologic ordered
--- NOTE | 2024-11-28 09:18 | PM.IMPN ---
Progress Note: A&P Assessment and Plan (1) Atrial fibrillation with rapid ventricular response: Code(s): I48.91 - Unspecified atrial fibrillation Status: Acute (2) Sepsis: Qualifiers: Sepsis acute organ dysfunction status: without acute organ dysfunction Sepsis type: sepsis due to unspecified organism Qualified Code(s): A41.9 - Sepsis, unspecified organism Code(s): A41.9 - Sepsis, unspecified organism Status: Acute (3) Opiate overdose: Qualifiers: Encounter type: initial encounter Injury intent: accidental or unintentional Qualified Code(s): T40.601A - Poisoning by unspecified narcotics, accidental (unintentional), initial encounter Code(s): T40.601A - Poisoning by unspecified narcotics, accidental (unintentional), initial encounter Status: Acute (4) Acute dehydration: Code(s): E86.0 - Dehydration Status: Acute (5) Alcohol abuse: Code(s): F10.10 - Alcohol abuse, uncomplicated Status: Acute (6) Lactic acidosis: Code(s): E87.20 - Acidosis, unspecified Status: Acute (7) Cardiomyopathy: Qualifiers: Cardiomyopathy type: unspecified Qualified Code(s): I42.9 - Cardiomyopathy, unspecified Code(s): I42.9 - Cardiomyopathy, unspecified Status: Acute (8) Tobacco abuse disorder: Code(s): Z72.0 - Tobacco use Status: Acute (9) BPH with urinary obstruction: Code(s): N40.1 - Benign prostatic hyperplasia with lower urinary tract symptoms; N13.8 - Other obstructive and reflux uropathy Status: Acute (10) Opiate withdrawal: Code(s): F11.93 - Opioid use, unspecified with withdrawal Status: Acute (11) Alcohol withdrawal: Code(s): F10.939 - Alcohol use, unspecified with withdrawal, unspecified Status: Acute (12) Atrial fibrillation: Code(s): I48.91 - Unspecified atrial fibrillation Status: Chronic Plan 64-year-old male with a past medical history of polysubstance abuse, alcohol abuse, tobacco dependence cardiomyopathy, atrial fibrillation and COPD who presented to the ER from home via EMS due to being found unresponsive. Patient has history of fentanyl abuse either snorting or IV injection. he received 6 mg of IV Narcan with return of mentation and breathing. He was noted to be tachycardic with heart rates in the 180s in the field. 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 on 11/27. Continue CIWA protocol, Librium, p.r.n. Ativan. continue folic acid and thiamine 11/28 Sepsis Patient is a tachycardia tachypnea, leukocytosis, lactic acidosis, meeting criteria of sepsis UA shows pyuria No bacterial growth from blood culture urine culture Provide fluid resuscitation Ceftriaxone 1 mg IV daily Complicated UTI Patient has BPH UA showed pyuria Antibiotics see above No growth from urine culture AFib RVR Uncontrolled heart rate Likely secondary to alcohol withdrawal, opioid withdrawal, dehydration, infection Started Cardizem drip Continue Xarelto p.o. Continue metoprolol p.o. rate is controlled off Cardizem drip 11/27 COPD exacerbation Start bronchodilators Start O2 therapy to keep pulse of 92 Dehydration ELEVATED BUN CREATININE RATIO 41/0.68 Started lactated Ringer IV 100 mL/hour Corrected Appreciate inspector repairer consultation, continue monitor patient closely in ICU today Subjective Date/time seen: 11/28/24 09:18 Interval history: off Precedex infusion. he denies visual hallucination, anxiety, chest pain, shortness of breath, abdominal pain, nausea, vomiting at this time. Urine output has been adequate, patient is afebrile and hemodynamically stable. Patient is tachycardic Exam Narrative: GENERAL: Ill-appearing, diaphoresis,, in no acute distress. Well-nourished. - EYES: EOMI. Anicteric. - HENT: Moist mucous membranes. - LUNGS: Clear to auscultation bilaterally, no wheezing, rhonchi, or rales. - CARDIOVASCULAR: Irregular irregular rhythm. No murmur. No JVD. - ABDOMEN: Soft, non-tender and non-distended. No palpable masses. - EXTREMITIES: No edema. Peripheral pulses 2+. Non-tender. - NEUROLOGIC: No focal neurological deficits. CN II-XII grossly intact. - PSYCHIATRIC: Somnolent,, Alert and oriented x 3. mood and affect: Normal - SKIN: No rashes or lesions. Warm. - LYMPH: No cervical lymphadenopathy. Objective Data Vital Signs Vital Signs: Vital Signs - 24 hr 11/27/24 09:19 11/27/24 09:19 11/27/24 10:00 Temperature Pulse Rate 96 91 91 Pulse Rate [Bilateral Radial Palpation] Pulse Rate [Monitor] Respiratory Rate Blood Pressure Pulse Oximetry Oxygen Delivery Oxygen Flow Rate 11/27/24 10:00 11/27/24 10:00 11/27/24 12:00 Temperature 98.1 F Pulse Rate 91 91 97 Pulse Rate [Bilateral Radial Palpation] Pulse Rate [Monitor] Respiratory Rate 28 H 28 H 18 Blood Pressure 144/123 H 132/78 Pulse Oximetry 94 94 Oxygen Delivery Oxygen Flow Rate 11/27/24 12:00 11/27/24 12:00 11/27/24 12:00 Temperature Pulse Rate 104 H Pulse Rate [Bilateral Radial Palpation] 97 Pulse Rate [Monitor] 94 Respiratory Rate 16 Blood Pressure 132/78 Pulse Oximetry 94 Oxygen Delivery Room Air Oxygen Flow Rate 11/27/24 12:00 11/27/24 14:00 11/27/24 14:00 Temperature 97.9 F Pulse Rate 102 H 111 H 111 H Pulse Rate [Bilateral Radial Palpation] Pulse Rate [Monitor] Respiratory Rate 19 19 Blood Pressure 97/68 L Pulse Oximetry 95 Oxygen Delivery Oxygen Flow Rate 11/27/24 14:00 11/27/24 14:44 11/27/24 14:57 Temperature Pulse Rate 105 H 94 91 Pulse Rate [Bilateral Radial Palpation] Pulse Rate [Monitor] Respiratory Rate 16 17 Blood Pressure Pulse Oximetry Oxygen Delivery Oxygen Flow Rate 11/27/24 15:00 11/27/24 16:00 11/27/24 16:00 Temperature Pulse Rate 108 H 97 Pulse Rate [Bilateral Radial Palpation] Pulse Rate [Monitor] 97 Respiratory Rate 18 21 H Blood Pressure 117/80 Pulse Oximetry Oxygen Delivery Oxygen Flow Rate 11/27/24 16:00 11/27/24 16:00 11/27/24 16:00 Temperature 98.3 F Pulse Rate 94 97 Pulse Rate [Bilateral Radial Palpation] Pulse Rate [Monitor] Respiratory Rate 21 H Blood Pressure 117/80 Pulse Oximetry 95 98 Oxygen Delivery Room Air Oxygen Flow Rate 11/27/24 18:00 11/27/24 18:00 11/27/24 18:35 Temperature Pulse Rate 94 94 94 Pulse Rate [Bilateral Radial Palpation] Pulse Rate [Monitor] Respiratory Rate 20 20 Blood Pressure 124/75 Pulse Oximetry 97 Oxygen Delivery Oxygen Flow Rate 11/27/24 20:00 11/27/24 20:00 11/27/24 20:00 Temperature Pulse Rate 93 99 Pulse Rate [Bilateral Radial Palpation] Pulse Rate [Monitor] 116 H Respiratory Rate 18 Blood Pressure 123/90 127/90 Pulse Oximetry Oxygen Delivery Oxygen Flow Rate 11/27/24 20:00 11/27/24 20:10 11/27/24 20:13 Temperature Pulse Rate 71 Pulse Rate [Bilateral Radial Palpation] Pulse Rate [Monitor] Respiratory Rate 20 Blood Pressure Pulse Oximetry 94 93 Oxygen Delivery Room Air Room Air Oxygen Flow Rate 11/27/24 20:28 11/27/24 21:00 11/27/24 22:00 Temperature 97.7 F Pulse Rate 96 115 H 105 H Pulse Rate [Bilateral Radial Palpation] Pulse Rate [Monitor] Respiratory Rate 22 H 18 Blood Pressure 123/90 Pulse Oximetry 94 Oxygen Delivery Oxygen Flow Rate 11/27/24 22:00 11/27/24 23:22 11/28/24 00:00 Temperature Pulse Rate 105 H 117 H Pulse Rate [Bilateral Radial Palpation] Pulse Rate [Monitor] 101 H Respiratory Rate 17 Blood Pressure 108/62 134/88 Pulse Oximetry 90 Oxygen Delivery Oxygen Flow Rate 11/28/24 00:00 11/28/24 00:00 11/28/24 00:00 Temperature 98.4 F Pulse Rate 99 101 H Pulse Rate [Bilateral Radial Palpation] Pulse Rate [Monitor] Respiratory Rate 15 Blood Pressure 134/88 Pulse Oximetry 94 94 Oxygen Delivery Room Air Oxygen Flow Rate 11/28/24 01:46 11/28/24 02:00 11/28/24 02:00 Temperature Pulse Rate 101 H 101 H Pulse Rate [Bilateral Radial Palpation] Pulse Rate [Monitor] Respiratory Rate 17 Blood Pressure 132/96 H Pulse Oximetry 93 96 Oxygen Delivery Nasal Cannula Oxygen Flow Rate 2 11/28/24 02:02 11/28/24 02:20 11/28/24 04:35 Temperature Pulse Rate 103 H 69 101 H Pulse Rate [Bilateral Radial Palpation] Pulse Rate [Monitor] Respiratory Rate 15 18 15 Blood Pressure Pulse Oximetry 97 Oxygen Delivery Room Air Oxygen Flow Rate 11/28/24 04:35 11/28/24 04:35 11/28/24 04:35 Temperature 98.4 F Pulse Rate 101 H 101 H Pulse Rate [Bilateral Radial Palpation] Pulse Rate [Monitor] 101 H Respiratory Rate 15 Blood Pressure 135/81 135/81 Pulse Oximetry 97 Oxygen Delivery Oxygen Flow Rate 11/28/24 06:00 11/28/24 06:00 11/28/24 08:00 Temperature 98.1 F Pulse Rate 106 H 106 H 117 H Pulse Rate [Bilateral Radial Palpation] Pulse Rate [Monitor] Respiratory Rate 18 14 Blood Pressure 148/102 H 141/82 H Pulse Oximetry 91 92 Oxygen Delivery Oxygen Flow Rate 11/28/24 08:00 11/28/24 08:00 11/28/24 08:39 Temperature Pulse Rate 112 H 108 H Pulse Rate [Bilateral Radial Palpation] Pulse Rate [Monitor] Respiratory Rate 15 Blood Pressure Pulse Oximetry Oxygen Delivery Room Air Oxygen Flow Rate 11/28/24 08:40 Temperature Pulse Rate Pulse Rate [Bilateral Radial Palpation] Pulse Rate [Monitor] Respiratory Rate Blood Pressure Pulse Oximetry 97 Oxygen Delivery Room Air Oxygen Flow Rate Intake/Output Intake/Output: Intake & Output 11/25/24 11/26/24 11/27/24 11/28/24 23:59 23:59 23:59 23:59 Intake Total 1999 1570.0 2273.9 530 Output Total 405 1075 325 Balance 1999 1165.0 1198.9 205 Meds/Results Medications: Active Medications Generic Name Dose Route Start Last Admin Trade Name Freq PRN Reason Stop Dose Admin Acetaminophen 650 mg 11/25/24 22:08 11/28/24 04:33 Acetaminophen 325 Mg Tablet PO 650 mg Q4H PRN Administration Mild Pain (1-3) or Fever Buprenorphine/Naloxone 1 each 11/27/24 09:00 11/28/24 08:11 Buprenorphine/Naloxone (*Crx) 4 Mg/1 Mg Sl Film SUBLINGUAL 1 each QID MIGUEL A Administration Chlordiazepoxide HCl 50 mg 11/27/24 12:00 11/28/24 06:10 Chlordiazepoxide (*Crx) 25 Mg Capsule PO 50 mg Q6HR MIGUEL A Administration Digoxin 125 mcg 11/26/24 09:00 11/28/24 08:09 Digoxin Tab 125 Mcg Tablet PO 125 mcg DAILY MIGUEL A Administration Fluticasone/Umeclidinium/Vilanterol 1 puff 11/26/24 08:00 11/28/24 08:33 Fluticasone/Umeclidin/Vilanter 200-62.5-25 Mcg Ellipta INHALATION 1 puff DAILYRT MIGUEL A Administration Folic Acid 1 mg 11/26/24 09:00 11/28/24 08:09 Folic Acid 1 Mg Tablet PO 1 mg DAILY MIGUEL A Administration Furosemide 40 mg 11/28/24 09:00 11/28/24 08:10 Furosemide 40 Mg Tablet PO 40 mg DAILY MIGUEL A Administration Gabapentin 300 mg 11/26/24 09:00 11/28/24 08:09 Gabapentin 300 Mg Capsule PO 300 mg DAILY MIGUEL A Administration Diltiazem HCl 100 mg in 100 mls @ 0 mls/hr 11/26/24 03:10 11/27/24 00:00 Cardizem 100 Mg/100 Ml IV CONT 0 mg/hr .Q0M MIGUEL A 0 mls/hr Infusion 0 MG/HR Ceftriaxone Sodium 1 gm in 50 mls @ 100 mls/hr 11/26/24 07:00 11/28/24 06:59 Rocephin 1 Gm/Ns 50 Ml IVPB Infused Q24H MIGUEL A Infusion Ipratropium [place] 0.5 mg 11/26/24 20:00 11/28/24 08:33 Ipratropium Br 0.02% Inh Soln 0.5 Mg/2.5 Ml Vial INHALATION 0.5 mg Q6HRT MIGUEL A Administration Levalbuterol HCl 0.63 mg 11/26/24 20:00 11/28/24 08:33 Levalbuterol Neb 1.25 Mg/3 Ml INHALATION 0.63 mg Q6HRT MIGUEL A Administration Lorazepam 2 mg 11/26/24 07:10 11/26/24 11:49 Lorazepam Inj (*Crx) 2 Mg/Ml Vial IV PUSH 2 mg Q2H PRN Administration CIWA > 15 Lorazepam 2 mg 11/26/24 07:10 11/27/24 21:05 Lorazepam Inj (*Crx) 2 Mg/Ml Vial IV PUSH 2 mg Q4H PRN Administration CIWA 8-15 Lorazepam 1 mg 11/26/24 08:30 11/26/24 13:31 Lorazepam Inj (*Crx) 2 Mg/Ml Vial IV PUSH 1 mg ONCE PRN Administration Anxiety Losartan Potassium 50 mg 11/26/24 09:00 11/28/24 08:10 Losartan Potassium 50 Mg Tablet PO 50 mg DAILY MIGUEL A Administration Metoprolol Succinate 75 mg 11/28/24 09:00 11/28/24 08:09 Metoprolol Succinate Ext Rel 25 Mg Tabcr PO 75 mg QAM MIGUEL A Administration Metoprolol Tartrate 5 mg 11/28/24 07:56 Metoprolol Tartrate Inj 5 Mg/5 Ml Vial IV PUSH Q4H PRN Tachyarrhythmias Mirtazapine 15 mg 11/26/24 09:00 11/28/24 08:10 Mirtazapine 15 Mg Tablet PO 15 mg DAILY MIGUEL A Administration Multi-Ingred Cream/Lotion/Oil/Oint 1 applic 11/26/24 13:40 11/28/24 08:10 Mineral Oil/White Petrolatum Ointment EACH EYE Not Given Q12HR [facility] Nicotine 1 patch 11/26/24 09:27 11/27/24 02:14 Nicotine (*Pbkc) 21 Mg Patch TRANSDERM 1 patch DAILY PRN Administration Nicotine withdrawal Ondansetron HCl 4 mg 11/25/24 22:08 11/28/24 08:38 Ondansetron Inj 4 Mg/2 Ml Vial IV PUSH 4 mg Q4H PRN Administration Nausea Rivaroxaban 20 mg 11/26/24 09:00 11/28/24 08:09 Rivaroxaban 20 Mg Tablet PO 20 mg DAILY MIGUEL A Administration Sertraline HCl 100 mg 11/26/24 09:00 11/28/24 08:09 Sertraline Hcl 50 Mg Tablet PO 100 mg DAILY MIGUEL A Administration Tamsulosin HCl 0.4 mg 11/26/24 09:20 11/28/24 08:10 Tamsulosin Hcl 0.4 Mg Capsule PO 0.4 mg QAM MIGUEL A Administration Thiamine HCl 100 mg 11/26/24 09:00 11/28/24 08:09 Thiamine Hcl 100 Mg Tablet PO 100 mg QAM MIGUEL A Administration Radiology Results: ITS Impressions Chest X-Ray 11/25/24 19:08 IMPRESSION: Severe centrilobular emphysema without focal infiltrate or effusion. Labs Labs: Laboratory Results - last 24 hr 11/27/24 11/27/24 11/27/24 11:26 12:35 23:56 WBC RBC Hgb Hct MCV MCH MCHC RDW Plt Count MPV Immature Gran % (Auto) Neut % (Auto) Lymph % (Auto) [place] % (Auto) Eos % (Auto) Baso % (Auto) Lymph # (Auto) [place] # (Auto) Eos # (Auto) Baso # (Auto) Abs Immat Gran (auto) Absolute Neuts (auto) Absolute Nucleated RBC Nucleated RBC % Sodium 133 L Potassium 3.6 Chloride 98 Carbon Dioxide 30 Anion Gap 5 BUN 27 H Creatinine 0.74 Estim Creat Clear Calc 73 Estimated GFR > 60 Glucose 166 H POC Capillary Glucose 184 H 133 H Calcium 8.5 Phosphorus Magnesium Total Bilirubin AST ALT Alkaline Phosphatase Total Protein Albumin 11/28/24 11/28/24 03:31 06:14 WBC 8.4 RBC 4.65 Hgb 14.0 Hct 42.3 MCV 91.0 MCH 30.1 MCHC 33.1 RDW 14.6 H Plt Count 150 MPV 9.9 Immature Gran % (Auto) 0.2 Neut % (Auto) 60.2 Lymph % (Auto) 29.2 [place] % (Auto) 9.1 H Eos % (Auto) 0.8 Baso % (Auto) 0.5 Lymph # (Auto) 2.45 [place] # (Auto) 0.8 H Eos # (Auto) 0.1 Baso # (Auto) 0.0 Abs Immat Gran (auto) 0.02 Absolute Neuts (auto) 5.0 Absolute Nucleated RBC 0.000 Nucleated RBC % 0.0 Sodium 135 L Potassium 3.2 L Chloride 98 Carbon Dioxide 30 Anion Gap 7 BUN 30 H Creatinine 0.84 Estim Creat Clear Calc 65 Estimated GFR > 60 Glucose 129 H POC Capillary Glucose 154 H Calcium 8.2 L Phosphorus 2.9 Magnesium 1.9 Total Bilirubin 1.1 AST 26 ALT 21 Alkaline Phosphatase 62 Total Protein 6.0 L Albumin 3.2 L
[2024-11-28 11:43] LABS: Anion Gap 3 mmol/L (4-12); Blood Urea Nitrogen 23 mg/dL (9-20); Calcium 8.4 mg/dL (8.4-10.2); Carbon Dioxide 33 mmol/L (22-30); Chloride 98 mmol/L (98-107); Estimated CRCL calculation 68 ml/min; Estimated Glomerular Filt Rate > 60; Glucose 127 mg/dL (65-110); Potassium 3.7 mmol/L (3.4-5.0); Sodium 134 mmol/L (137-145)
[2024-11-28 12:32] LABS: Glucose Point of Care 129 mg/dl (65-105)
--- NOTE | 2024-11-28 18:01 | PCRCNOTE ---
Window of time for administration has passed. See next scheduled administration.
[2024-11-28 18:14] LABS: Glucose Point of Care 185 mg/dl (65-105)
[2024-11-28] MEDS: MINERAL OIL/WHITE PETROLATUM OINTMENT 1 APPLIC EACH EYE (22:01)
[2024-11-29] VITALS (14 sets, daily range): BP systolic 107–128; BP diastolic 71–83; PULSE 86–123; RESP 11–20; TEMP 36.6–37.1; O2SAT 92–100; BMI 18.1
[2024-11-29] MEDS: chlordiazePOXIDE (*CRX) 25 MG CAPSULE 50 MG PO ×4 (00:40→17:43)
[2024-11-29] MEDS: IPRATROPIUM BR 0.02% INH SOLN 0.5 MG/2.5 ML VIAL INHALATION ×4 (01:55→19:39)
[2024-11-29] MEDS: LEVALBUTEROL NEB 1.25 MG/3 ML 0.63 MG INHALATION ×4 (01:55→19:39)
[2024-11-29 04:39] LABS: Basophils Absolute Auto 0.1 K/mm3 (0.0-0.1); Basophils Percent Auto 0.5 % (0.2-1.2); Eosinophils Absolute Auto 0.3 K/mm3 (0-0.3); Eosinophils Percent Auto 2.8 % (0-4.4); Hematocrit 41.3 % (42.0-52.0); Hemoglobin 13.2 g/dL (14.0-18.0); Immature Granulocyte Absolute 0.04 K/mm3 (0.00-0.031); Immature Granulocyte Percent A 0.4 % (0-0.5); Lymphocytes Absolute Auto 2.78 K/mm3 (0.9-3.2); Lymphocytes Percent Auto 29.9 % (18.3-44.2); Mean Corpuscular Hemoglobin 30.5 pg (26-34); Mean Corpuscular Volume 95.4 fl (80-100); Mean Platelet Volume 9.8 fl (7.4-10.4); Monocytes Absolute Auto 0.8 K/mm3 (0.1-0.6); Monocytes Percent Auto 8.2 % (2.6-8.5); Neutrophils Absolute Auto 5.4 K/mm3 (1.3-6.7); Neutrophils Percent Auto 58.2 % (45.5-73.1); Platelet Count Result 156 k/mm3 (150-375); Red Blood Count 4.33 M/mm3 (4.6-6.20); Red Cell Distribution Width 14.5 % (11.5-14.5); White Blood Count 9.3 K/mm3 (4.5-10.0)
[2024-11-29 04:53] LABS: Alanine Aminotransferase 23 U/L (6-50); Albumin Level 3.4 g/dL (3.5-5.1); Alkaline Phosphatase 58 U/L (38-126); Anion Gap 6 mmol/L (4-12); Aspartate Amino Transferase 25 U/L (17-59); Bilirubin,Total 0.5 mg/dL (0.2-1.3); Blood Urea Nitrogen 27 mg/dL (9-20); Calcium 8.7 mg/dL (8.4-10.2); Carbon Dioxide 31 mmol/L (22-30); Chloride 99 mmol/L (98-107); Estimated CRCL calculation 66 ml/min; Estimated Glomerular Filt Rate > 60; Glucose 132 mg/dL (65-110); Magnesium 1.9 mg/dL (1.6-2.3); Phosphorus 3.8 mg/dL (2.5-4.5); Potassium 4.1 mmol/L (3.4-5.0); Sodium 136 mmol/L (137-145)
--- NOTE | 2024-11-29 08:34 | PM.IMPN ---
Progress Note: A&P Assessment and Plan (1) Sepsis: Code(s): A41.9 - Sepsis, unspecified organism Status: Acute Assessment and Plan: Patient presented with dehydration, opioid overdose, was given Narcan 6 mg by EMS after which she woke up and had normal respirations. -patient had leukocytosis, lactic acidosis, tachypnea, nausea, vomiting -UA reflective of UTI -continue ceftriaxone (11/26) -blood pressures remained stable -renal function is normal -11/26: Blood cultures negative x2 so far -11/25: Urine cultures: Proteus mirabilis - pansensitive (2) Alcohol withdrawal: Code(s): F10.939 - Alcohol use, unspecified with withdrawal, unspecified Status: Acute Assessment and Plan: Patient now in alcohol withdrawal for which he is being transferred to the ICU -CIWA scores have gone from 8 to22 patient has received multiple doses of Ativan, also on Librium -patient is getting agitated, trying to pull on lines and has removed 1 line, removing leads as well as O2 sat monitor -patient brought to the ICU, started on Precedex infusion will maintain RASS of 0 to -1 11/27: Continue to wean Precedex infusion, increased Librium 11/28: Has been off Precedex infusion since 3:00 p.m. on 11/27. Continue CIWA protocol, Librium, p.r.n. Ativan -remains off Precedex infusion, continue CIWA protocol, Librium and p.r.n. Ativan -continue folic acid and thiamine (3) Opiate withdrawal: Code(s): F11.93 - Opioid use, unspecified with withdrawal Status: Acute Assessment and Plan: Will continue to monitor for opiate withdrawal -according to the records, patient had been treated previously with Suboxone but this had not been refilled since September 22. -continue Suboxone at half the dose, discussed with pharmacy, to avoid withdrawal (4) Atrial fibrillation with rapid ventricular response: Code(s): I48.91 - Unspecified atrial fibrillation Status: Acute Assessment and Plan: Patient has a history of AFib, patient was in AFib RVR on admission, improved with IV fluids as patient was dehydrated, also methamphetamine use along with opioid use. -OFF Cardizem infusion -continue Xarelto, digoxin and Lasix -metoprolol was increased, will have Cardiology evaluate the patient (5) BPH with urinary obstruction: Code(s): N40.1 - Benign prostatic hyperplasia with lower urinary tract symptoms; N13.8 - Other obstructive and reflux uropathy Status: Acute Assessment and Plan: Patient's bladder scan at over 600 mL in urine, Lau catheter was inserted. -urine output has been good (6) COPD (chronic obstructive pulmonary disease): Code(s): J44.9 - Chronic obstructive pulmonary disease, unspecified Status: Chronic Assessment and Plan: Patient with history of COPD -continue bronchodilators, -continue Ellipta (7) Acute dehydration: Code(s): E86.0 - Dehydration Status: Acute Assessment and Plan: Adequately fluid-resuscitated (8) Hypertension: Code(s): I10 - Essential (primary) hypertension Status: Acute Assessment and Plan: Continue losartan and metoprolol Plan DVT prophylaxis: Xarelto Stress ulcer prophylaxis: Not indicated Nutrition: Heart healthy diet Code Status: Full code Due to a high probability of clinically significant, life threatening deterioration, the patient required my highest level of preparedness to intervene emergently and I personally spent this critical care time directly and personally managing the patient. This critical care time included obtaining a history; examining the patient; pulse oximetry; ordering and review of studies; arranging urgent treatment with development of a management plan; evaluation of patient's response to treatment; frequent reassessment; and discussions with other providers. It was exclusive of separately billable procedures and treating other patients and teaching time. Please see Assessment and Plan section and the rest of the note for further information on patient assessment and treatment This dictation may have been done utilizing a voice recognition system. Attempts have been made to correct errors. However, there may be uncorrected grammatical, spelling, and recognitions errors present. Subjective Date/time seen: 11/29/24 08:34 Interval history: Interval history: Reason for consult: Alcohol withdrawal, methamphetamine abuse, AFib RVR, status post Precedex 11/29/2024: Patient being seen for the hospitalist group Patient is awake, alert, pleasant, denies any chest pain, shortness of breath, abdominal pain, nausea, vomiting at this time. States he feels better, no tremors noted, patient is calm and coherent. Able to answer questions appropriately and follows simple commands Review of Systems Review of Systems: All systems reviewed & are unremarkable except as noted in HPI and below Exam Narrative: General: Disheveled and malnourished individual currently in no acute distress HEENT:? Pupils equal and reactive, sclerae is flushed, dry oral mucosa Neck:? Supple Respiratory:? Clear to auscultation bilateral, no wheezing, adequate air entry Cardiac:? Irregularly irregular, tachycardia Abdomen:? Soft, nontender, nondistended, normoactive bowel sounds Extremities:? No edema, palpable pedal pulses Neuro:? Patient is awake, alert, oriented x3, is able to answer questions appropriately, follows simple commands Skin:? Scabs on lower extremities, bruising on upper extremities, Psych:? Normal mentation and affect Objective Data Vital Signs Vital Signs: Vital Signs - 24 hr 11/28/24 08:39 11/28/24 08:40 11/28/24 10:00 Temperature Pulse Rate 108 H 96 Pulse Rate [Bilateral Radial Palpation] Pulse Rate [Monitor] Respiratory Rate 15 Blood Pressure Pulse Oximetry 97 Oxygen Delivery Room Air 11/28/24 12:00 11/28/24 12:00 11/28/24 14:00 Temperature Pulse Rate 99 96 Pulse Rate [Bilateral Radial Palpation] Pulse Rate [Monitor] 107 H Respiratory Rate Blood Pressure 144/95 H Pulse Oximetry Oxygen Delivery 11/28/24 16:00 11/28/24 16:00 11/28/24 16:00 Temperature 98.9 F Pulse Rate 101 H 112 H Pulse Rate [Bilateral Radial Palpation] Pulse Rate [Monitor] 112 H Respiratory Rate 18 Blood Pressure 121/79 121/79 Pulse Oximetry 93 Oxygen Delivery 11/28/24 18:00 11/28/24 20:00 11/28/24 20:30 Temperature Pulse Rate 99 74 74 Pulse Rate [Bilateral Radial Palpation] Pulse Rate [Monitor] Respiratory Rate 18 18 Blood Pressure Pulse Oximetry 93 Oxygen Delivery Room Air 11/28/24 20:51 11/28/24 20:51 11/29/24 00:00 Temperature Pulse Rate 74 Pulse Rate [Bilateral Radial Palpation] 97 Pulse Rate [Monitor] 112 H Respiratory Rate 18 Blood Pressure 121/79 Pulse Oximetry 93 Oxygen Delivery Room Air 11/29/24 00:00 11/29/24 00:00 11/29/24 01:55 Temperature 98.8 F Pulse Rate 108 H 108 H 95 Pulse Rate [Bilateral Radial Palpation] Pulse Rate [Monitor] Respiratory Rate 11 L 16 Blood Pressure 107/77 Pulse Oximetry 100 Oxygen Delivery 11/29/24 02:05 11/29/24 04:00 11/29/24 04:00 Temperature Pulse Rate 95 95 Pulse Rate [Bilateral Radial Palpation] 97 Pulse Rate [Monitor] 112 H Respiratory Rate 16 Blood Pressure 107/77 Pulse Oximetry Oxygen Delivery 11/29/24 07:55 11/29/24 07:55 11/29/24 08:12 Temperature Pulse Rate 86 89 Pulse Rate [Bilateral Radial Palpation] Pulse Rate [Monitor] Respiratory Rate 20 20 Blood Pressure Pulse Oximetry 96 Oxygen Delivery Room Air Intake/Output Intake/Output: Intake & Output 11/26/24 11/27/24 11/28/24 11/29/24 23:59 23:59 23:59 23:59 Intake Total 1570.0 2273.9 980 Output Total 405 1075 2325 650 Balance 1165.0 1198.9 -1345 -650 Meds/Results Medications: Active Medications Generic Name Dose Route Start Last Admin Trade Name Freq PRN Reason Stop Dose Admin Acetaminophen 650 mg 11/25/24 22:08 11/28/24 04:33 Acetaminophen 325 Mg Tablet PO 650 mg Q4H PRN Administration Mild Pain (1-3) or Fever Amoxicillin/Clavulanate Potassium 1 tablet 11/29/24 09:00 Amoxicillin/Clavulanate K 875-125 Mg Tab PO 12/02/24 21:01 Q12HR [facility] Buprenorphine/Naloxone 1 each 11/27/24 09:00 11/28/24 22:01 Buprenorphine/Naloxone (*Crx) 4 Mg/1 Mg Sl Film SUBLINGUAL 1 each QID MIGUEL A Administration Chlordiazepoxide HCl 50 mg 11/27/24 12:00 11/29/24 06:35 Chlordiazepoxide (*Crx) 25 Mg Capsule PO 50 mg Q6HR MIGUEL A Administration Digoxin 125 mcg 11/26/24 09:00 11/28/24 08:09 Digoxin Tab 125 Mcg Tablet PO 125 mcg DAILY MIGUEL A Administration Fluticasone/Umeclidinium/Vilanterol 1 puff 11/26/24 08:00 11/29/24 08:20 Fluticasone/Umeclidin/Vilanter 200-62.5-25 Mcg Ellipta INHALATION Not Given DAILYRT [facility] Folic Acid 1 mg 11/26/24 09:00 11/28/24 08:09 Folic Acid 1 Mg Tablet PO 1 mg DAILY MIGUEL A Administration Furosemide 40 mg 11/28/24 09:00 11/28/24 08:10 Furosemide 40 Mg Tablet PO 40 mg DAILY MIGUEL A Administration Gabapentin 300 mg 11/26/24 09:00 11/28/24 08:09 Gabapentin 300 Mg Capsule PO 300 mg DAILY MIGUEL A Administration Diltiazem HCl 100 mg in 100 mls @ 0 mls/hr 11/26/24 03:10 11/27/24 00:00 Cardizem 100 Mg/100 Ml IV CONT 0 mg/hr .Q0M MIGUEL A 0 mls/hr Infusion 0 MG/HR Ipratropium [place] 0.5 mg 11/26/24 20:00 11/29/24 07:53 Ipratropium Br 0.02% Inh Soln 0.5 Mg/2.5 Ml Vial INHALATION 0.5 mg Q6HRT MIGUEL A Administration Levalbuterol HCl 0.63 mg 11/26/24 20:00 11/29/24 07:53 Levalbuterol Neb 1.25 Mg/3 Ml INHALATION 0.63 mg Q6HRT MIGUEL A Administration Lorazepam 2 mg 11/26/24 07:10 11/26/24 11:49 Lorazepam Inj (*Crx) 2 Mg/Ml Vial IV PUSH 2 mg Q2H PRN Administration CIWA > 15 Lorazepam 2 mg 11/26/24 07:10 11/27/24 21:05 Lorazepam Inj (*Crx) 2 Mg/Ml Vial IV PUSH 2 mg Q4H PRN Administration CIWA 8-15 Lorazepam 1 mg 11/26/24 08:30 11/26/24 13:31 Lorazepam Inj (*Crx) 2 Mg/Ml Vial IV PUSH 1 mg ONCE PRN Administration Anxiety Losartan Potassium 50 mg 11/26/24 09:00 11/28/24 08:10 Losartan Potassium 50 Mg Tablet PO 50 mg DAILY MIGUEL A Administration Metoprolol Succinate 75 mg 11/28/24 09:00 11/28/24 08:09 Metoprolol Succinate Ext Rel 25 Mg Tabcr PO 75 mg QAM MIGUEL A Administration Metoprolol Tartrate 5 mg 11/28/24 07:56 Metoprolol Tartrate Inj 5 Mg/5 Ml Vial IV PUSH Q4H PRN Tachyarrhythmias Mirtazapine 15 mg 11/26/24 09:00 11/28/24 08:10 Mirtazapine 15 Mg Tablet PO 15 mg DAILY MIGUEL A Administration Multi-Ingred Cream/Lotion/Oil/Oint 1 applic 11/26/24 13:40 11/28/24 22:01 Mineral Oil/White Petrolatum Ointment EACH EYE 1 applic Q12HR MIGUEL A Administration Nicotine 1 patch 11/26/24 09:27 11/27/24 02:14 Nicotine (*Pbkc) 21 Mg Patch TRANSDERM 1 patch DAILY PRN Administration Nicotine withdrawal Ondansetron HCl 4 mg 11/25/24 22:08 11/28/24 08:38 Ondansetron Inj 4 Mg/2 Ml Vial IV PUSH 4 mg Q4H PRN Administration Nausea Rivaroxaban 20 mg 11/26/24 09:00 11/28/24 08:09 Rivaroxaban 20 Mg Tablet PO 20 mg DAILY MIGUEL A Administration Sertraline HCl 100 mg 11/26/24 09:00 11/28/24 08:09 Sertraline Hcl 50 Mg Tablet PO 100 mg DAILY MIGUEL A Administration Tamsulosin HCl 0.4 mg 11/26/24 09:20 11/28/24 08:10 Tamsulosin Hcl 0.4 Mg Capsule PO 0.4 mg QAM MIGUEL A Administration Thiamine HCl 100 mg 11/26/24 09:00 11/28/24 08:09 Thiamine Hcl 100 Mg Tablet PO 100 mg QAM MIGUEL A Administration Radiology Results: ITS Impressions Chest X-Ray 11/25/24 19:08 IMPRESSION: Severe centrilobular emphysema without focal infiltrate or effusion. Labs Labs: Laboratory Results - last 24 hr 11/28/24 11/28/24 11/28/24 11:21 12:25 17:57 WBC RBC Hgb Hct MCV MCH MCHC RDW Plt Count MPV Immature Gran % (Auto) Neut % (Auto) Lymph % (Auto) [place] % (Auto) Eos % (Auto) Baso % (Auto) Lymph # (Auto) [place] # (Auto) Eos # (Auto) Baso # (Auto) Abs Immat Gran (auto) Absolute Neuts (auto) Absolute Nucleated RBC Nucleated RBC % Sodium 134 L Potassium 3.7 Chloride 98 Carbon Dioxide 33 H Anion Gap 3 L BUN 23 H Creatinine 0.84 Estim Creat Clear Calc 68 Estimated GFR > 60 Glucose 127 H POC Capillary Glucose 129 H 185 H Calcium 8.4 Phosphorus Magnesium Total Bilirubin AST ALT Alkaline Phosphatase Total Protein Albumin 11/29/24 04:20 WBC 9.3 RBC 4.33 L Hgb 13.2 L Hct 41.3 L MCV 95.4 MCH 30.5 MCHC 32.0 RDW 14.5 Plt Count 156 MPV 9.8 Immature Gran % (Auto) 0.4 Neut % (Auto) 58.2 Lymph % (Auto) 29.9 [place] % (Auto) 8.2 Eos % (Auto) 2.8 Baso % (Auto) 0.5 Lymph # (Auto) 2.78 [place] # (Auto) 0.8 H Eos # (Auto) 0.3 Baso # (Auto) 0.1 Abs Immat Gran (auto) 0.04 H Absolute Neuts (auto) 5.4 Absolute Nucleated RBC 0.000 Nucleated RBC % 0.0 Sodium 136 L Potassium 4.1 Chloride 99 Carbon Dioxide 31 H Anion Gap 6 BUN 27 H Creatinine 0.87 Estim Creat Clear Calc 66 Estimated GFR > 60 Glucose 132 H POC Capillary Glucose Calcium 8.7 Phosphorus 3.8 Magnesium 1.9 Total Bilirubin 0.5 AST 25 ALT 23 Alkaline Phosphatase 58 Total Protein 6.0 L Albumin 3.4 L Quality VTE Prophylaxis VTE prophylaxis: pharmacologic ordered
[2024-11-29] MEDS: SERTRALINE HCL 50 MG TABLET 100 MG PO (09:46)
[2024-11-29] MEDS: TAMSULOSIN HCL 0.4 MG CAPSULE PO (09:46)
[2024-11-29] MEDS: LOSARTAN POTASSIUM 50 MG TABLET PO (09:46)
[2024-11-29] MEDS: THIAMINE HCL 100 MG TABLET PO (09:46)
[2024-11-29] MEDS: DIGOXIN TAB 125 MCG TABLET PO (09:46)
[2024-11-29] MEDS: GABAPENTIN 300 MG CAPSULE PO (09:46)
[2024-11-29] MEDS: AMOXICILLIN/CLAVULANATE K 875-125 MG TAB 1 TABLET PO ×2 (09:47→20:23)
[2024-11-29] MEDS: FUROSEMIDE 40 MG TABLET PO (09:47)
[2024-11-29] MEDS: RIVAROXABAN 20 MG TABLET PO (09:47)
[2024-11-29] MEDS: FOLIC ACID 1 MG TABLET PO (09:47)
[2024-11-29] MEDS: BUPRENORPHINE/NALOXONE (*CRX) 4 MG/1 MG SL FILM 1 EACH SUBLINGUAL ×4 (09:47→20:23)
[2024-11-29] MEDS: MIRTAZAPINE 15 MG TABLET PO (09:47)
[2024-11-29] MEDS: ACETAMINOPHEN 325 MG TABLET 650 MG PO (09:47)
[2024-11-29] MEDS: METOPROLOL SUCCINATE EXT REL 25 MG TABCR 75 MG PO (09:47)
--- NOTE | 2024-11-29 10:35 | P.CONCA_ITS ---
Assessment and Plan Assessment and plan (1) Atrial fibrillation with rapid ventricular response: Code(s): I48.91 - Unspecified atrial fibrillation Status: Acute Plan 1. Atrial fibrillation with RVR. In setting of alcohol withdrawal, amphetamine use, sepsis. 2. Sepsis 3. Alcohol withdrawal 4. Cardiomyopathy. LVEF in the past in the 40s, last echo with LVEF 50-55%. 5. Hypertension 6. COPD 7. Alcohol abuse 8. Polysubstance abuse. UDS this admission positive for amphetamine. PLAN: -I am going to stop Digoxin. Given alcohol abuse, polysubstance abuse, concern for medication noncompliance, would prefer not to use Digoxin in this patient. -Proceed with rate control strategy. Will increase Toprol to 100mg once daily. Can uptitrate it for additional rate control if needed. -Continue Xarelto. -Will check TSH level. -Continue Losartan, Toprol, Lasix for cardiomyopathy. Currently appears euvolemic. Recommendations and plan discussed with ICU Physician. History of Present Illness History of Present Illness Consult date/time: 11/29/24 10:35 Requesting physician: Flip Lilly MD Consult reason: atrial fibrillation Reason For Visit: Opiate overdose, AFib RVR, dehydration Narrative: We are consulted for atrial fibrillation with RVR. Javad is a 64 year old male with cardiomyopathy, atrial fibrillation, hypertension, COPD, alcohol abuse, polysubstance abuse who was admitted to [facility] on 11/26 after being found unresponsive at home after a wellness check. Given Narcan with improvement. Admitted to the ICU for alcohol withdrawal, sepsis, atrial fibrillation with RVR. Initially started on IV Diltiazem drip, which is now off. UDS positive for amphetamine. Last echocardiogram 11/12/2023 shows LVEF 50-55%, severe left atrial enlargement, moderate right atrial enlargement, moderate-severe mitral regurgitation. Patient states he feels lazy today. Denies chest pain, palpitations. Overall fairly decently rate controlled on tele, occasional RVR. Review of Systems 2 Review of Systems: All systems reviewed & are unremarkable except as noted in HPI and below (HPI) [facility] Past Medical History Medical History BPH (benign prostatic hyperplasia) Tobacco abuse disorder Cardiomyopathy Mitral regurgitation Opioid abuse Alcohol abuse Atrial fibrillation COPD (chronic obstructive pulmonary disease) Surgical History Surgical History History of hernia surgery Family History Family History Father Diabetes mellitus Hypertension Acute myocardial infarction Sibling Family history of alcoholism Mother Dementia Social History Social History Social History: The patient lives with his mother. 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 He smoked a pack of cigarettes per day since he was a teenager. He has had difficulty with alcohol dependence since he was young. He reports that he was in recovery for 20 years but started drinking again within the last year. He reports that he was on Suboxone but her started using fentanyl again October 2024. Code status: Full code Surrogate decision maker: Mother Smoking packs per day: 1 Smoking cigarettes per day: 20.0 Years smoked: 20 Smoking pack-years: 20.00 Smoking status: Current every day smoker Tobacco type: cigarettes Alcohol intake: current Substance use: current Substance use type: marijuana and opiates Other substance usage details: Fentanyl IV last use 11/24/24 at 12pm, marijuana last use 11/17/24. Last use: Pt drinks 1/5 whiskey daily. Last drink was on 11/25/24 at 12pm. Do You Feel Safe in your Home?: Yes Lack of Transportation: No Lack of Food: Never True Current Housing: I Have Housing Concerned About Future Housing: No Difficulty Paying Gas/Electric Bills: No Difficulty Paying for Meds: No Currently Unemployed: No Education: High School Diploma/GED Difficulty w/ Childcare or Family Care: No Spiritual care concerns: No Meds Home Medications and Allergies Home Medications ?Medication ?Instructions ?Recorded ?Confirmed ?Type albuterol sulfate 90 mcg/actuation 2 puff inhalation DAILY PRN 11/11/23 11/26/24 History aerosol inhaler shortness of breath or wheezing buprenorphine 8 mg-naloxone 2 mg 1 tablet sublingual DAILY 11/11/23 11/26/24 History sublingual tablet losartan 50 mg tablet 50 mg PO DAILY 11/11/23 11/26/24 History rivaroxaban 20 mg tablet (Xarelto) 20 mg PO DAILY 11/11/23 11/26/24 History umeclidinium 62.5 mcg-vilanterol 1 inh inhalation DAILY 11/11/23 11/26/24 History 25 mcg/actuation powdr for inhalation (Anoro Ellipta) folic acid 1 mg tablet 1 mg PO DAILY #30 tabs 11/15/23 11/26/24 Rx furosemide 40 mg tablet 40 mg PO DAILY #30 tabs 11/15/23 11/26/24 Rx metoprolol succinate 50 mg 50 mg PO QAM #30 tabs 11/15/23 11/26/24 Rx tablet,extended release 24 hr naloxone 4 mg/actuation nasal 4 mg intranasal Q2M PRN opioid 11/15/23 11/26/24 Rx spray (Narcan) overdose #2 ea thiamine HCl (vitamin B1) 100 mg 100 mg PO QAM #30 tabs 11/15/23 11/26/24 Rx tablet (Vitamin B-1) digoxin 125 mcg (0.125 mg) tablet 0.125 mg PO DAILY 11/26/24 11/26/24 History fluticasone fur. 200 mcg-umeclid 1 inh inhalation Q24H 11/26/24 11/26/24 History 62.5 mcg-vilant 25 mcg inhalat.powder (Trelegy Ellipta) gabapentin 300 mg capsule 300 mg PO DAILY 11/26/24 11/26/24 History mirtazapine 15 mg tablet 15 mg PO DAILY 11/26/24 11/26/24 History sertraline 100 mg tablet 100 mg PO DAILY 11/26/24 11/26/24 History spironolactone 25 mg tablet 12.5 mg PO DAILY 11/26/24 11/26/24 History Allergies Allergy/AdvReac Type Severity Reaction Status Date / Time latex Allergy Unknown Hives Verified 11/26/24 01:27 Vital Signs Vital Signs - 24 hr 11/28/24 12:00 11/28/24 12:00 11/28/24 14:00 Temperature Pulse Rate 99 96 Pulse Rate [Bilateral Radial Palpation] Pulse Rate [Monitor] 107 H Respiratory Rate Blood Pressure 144/95 H Pulse Oximetry Oxygen Delivery 11/28/24 16:00 11/28/24 16:00 11/28/24 16:00 Temperature 37.2 C Pulse Rate 101 H 112 H Pulse Rate [Bilateral Radial Palpation] Pulse Rate [Monitor] 112 H Respiratory Rate 18 Blood Pressure 121/79 121/79 Pulse Oximetry 93 Oxygen Delivery 11/28/24 18:00 11/28/24 20:00 11/28/24 20:30 Temperature Pulse Rate 99 74 74 Pulse Rate [Bilateral Radial Palpation] Pulse Rate [Monitor] Respiratory Rate 18 18 Blood Pressure Pulse Oximetry 93 Oxygen Delivery Room Air 11/28/24 20:51 11/28/24 20:51 11/29/24 00:00 Temperature Pulse Rate 74 Pulse Rate [Bilateral Radial Palpation] 97 Pulse Rate [Monitor] 112 H Respiratory Rate 18 Blood Pressure 121/79 Pulse Oximetry 93 Oxygen Delivery Room Air 11/29/24 00:00 11/29/24 00:00 11/29/24 01:55 Temperature 37.1 C Pulse Rate 108 H 108 H 95 Pulse Rate [Bilateral Radial Palpation] Pulse Rate [Monitor] Respiratory Rate 11 L 16 Blood Pressure 107/77 Pulse Oximetry 100 Oxygen Delivery 11/29/24 02:05 11/29/24 04:00 11/29/24 04:00 Temperature Pulse Rate 95 95 Pulse Rate [Bilateral Radial Palpation] 97 Pulse Rate [Monitor] 112 H Respiratory Rate 16 Blood Pressure 107/77 Pulse Oximetry Oxygen Delivery 11/29/24 07:55 11/29/24 07:55 11/29/24 08:00 Temperature Pulse Rate 86 Pulse Rate [Bilateral Radial Palpation] Pulse Rate [Monitor] 109 H Respiratory Rate 20 Blood Pressure Pulse Oximetry 96 Oxygen Delivery Room Air 11/29/24 08:00 11/29/24 08:00 11/29/24 08:12 Temperature 36.6 C Pulse Rate 107 H 89 Pulse Rate [Bilateral Radial Palpation] Pulse Rate [Monitor] Respiratory Rate 16 20 Blood Pressure 128/71 Pulse Oximetry 94 Oxygen Delivery Room Air Exam 2 Const: General: no acute distress Eyes: General: appearance normal, both eyes and all related structures S clera: sclerae normal Cardio: Rate: tachycardic Rhythm: abnormal rhythm irregularly irregular Heart sounds: Murmur heart sound present systolic Neuro: Speech: normal speech Psych: Mental Status: mental status grossly normal Affect: normal affect Results Labs and Meds 11/29/24 04:20 11/29/24 04:20 Lab results: Cardiac Enzymes 11/29/24 Range/Units 04:20 AST 25 (17-59) U/L CBC 11/29/24 Range/Units 04:20 WBC 9.3 (4.5-10.0) K/mm3 RBC 4.33 L (4.6-6.20) M/mm3 Hgb 13.2 L (14.0-18.0) g/dL Hct 41.3 L (42.0-52.0) % Plt Count 156 (150-375) k/mm3 Lymph # (Auto) 2.78 (0.9-3.2) K/mm3 [place] # (Auto) 0.8 H (0.1-0.6) K/mm3 Eos # (Auto) 0.3 (0-0.3) K/mm3 Baso # (Auto) 0.1 (0.0-0.1) K/mm3 Comprehensive Metabolic Panel 11/28/24 11/29/24 Range/Units 11:21 04:20 Sodium 134 L 136 L (137-145) mmol/L Potassium 3.7 4.1 (3.4-5.0) mmol/L Chloride 98 99 (98-107) mmol/L Carbon Dioxide 33 H 31 H (22-30) mmol/L BUN 23 H 27 H (9-20) mg/dL Creatinine 0.84 0.87 (0.7-1.3) mg/dL Glucose 127 H 132 H (65-110) mg/dL Calcium 8.4 8.7 (8.4-10.2) mg/dL AST 25 (17-59) U/L ALT 23 (6-50) U/L Alkaline Phosphatase 58 (38-126) U/L Total Protein 6.0 L (6.3-8.2) g/dL Albumin 3.4 L (3.5-5.1) g/dL Intake and Output 11/28/24 11/29/24 11/29/24 23:59 07:59 15:59 Intake Total 150 500 Output Total 1999 650 Balance -1850 -650 500 Intake: Oral 150 500 Output: Catheter Urine 1999 650 Urethral Catheter 1999 650 Patient Weight 11/29/24 23:59 Weight 59 kg
[2024-11-29 11:49] LABS: Glucose Point of Care 144 mg/dl (65-105)
[2024-11-29 12:55] LABS: Thyroid Stimulating Hormone 0.729 uIU/mL (0.465-4.680)
--- NOTE | 2024-11-29 14:12 | P.CDI_ITS ---
CDI Query Clarification Request BMI: 18.1 Nutritional Diagnostic Statement: Please refer to the comprehensive nutrition assessment for further information. If you agree with diagnosis of Severe Protein Calorie Malnutrition as related to inadequate protein-energy intake with increased protein-energy needs in setting of chronic disease as evidenced by minimal oral intake for > 1-2 months; severe subcutaneous fat loss (orbital pads) and muscle wasting (temporalis, clavicle). Please specify severity if known: * Mild * Moderate * Severe * Other/Unknown <Laura Liriano RN - Last Filed: 11/29/24 14:14> Clarified Diagnosis Clarified Diagnosis: mild to moderate <Rudolph Arreola MD - Last Filed: 11/29/24 15:21>
[2024-11-29 18:15] LABS: Glucose Point of Care 155 mg/dl (65-105)
[2024-11-29] MEDS: MINERAL OIL/WHITE PETROLATUM OINTMENT 1 APPLIC EACH EYE (20:23)
[2024-11-30] VITALS (20 sets, daily range): BP systolic 74–102; BP diastolic 53–68; PULSE 85–103; RESP 12–21; TEMP 36.6–36.7; O2SAT 93–96
[2024-11-30] MEDS: chlordiazePOXIDE (*CRX) 25 MG CAPSULE 50 MG PO ×4 (00:03→18:09)
[2024-11-30 00:08] LABS: Glucose Point of Care 243 mg/dl (65-105)
[2024-11-30] MEDS: INSULIN ASPART (*BKC) 100 UNITS/ML SUB-Q (01:02)
[2024-11-30] MEDS: LORazepam INJ (*CRX) 2 MG/ML VIAL 1 MG IV PUSH (01:20)
[2024-11-30] MEDS: IPRATROPIUM BR 0.02% INH SOLN 0.5 MG/2.5 ML VIAL INHALATION ×4 (01:31→20:11)
[2024-11-30] MEDS: LEVALBUTEROL NEB 1.25 MG/3 ML 0.63 MG INHALATION ×4 (01:31→20:10)
[2024-11-30 04:45] LABS: Basophils Absolute Auto 0.1 K/mm3 (0.0-0.1); Basophils Percent Auto 0.5 % (0.2-1.2); Eosinophils Absolute Auto 0.5 K/mm3 (0-0.3); Eosinophils Percent Auto 4.5 % (0-4.4); Hematocrit 41.7 % (42.0-52.0); Immature Granulocyte Absolute 0.04 K/mm3 (0.00-0.031); Immature Granulocyte Percent A 0.4 % (0-0.5); Lymphocytes Absolute Auto 3.29 K/mm3 (0.9-3.2); Lymphocytes Percent Auto 32.4 % (18.3-44.2); Mean Corpuscular HGB Conc 31.2 g/dl (32-36); Mean Corpuscular Hemoglobin 29.7 pg (26-34); Mean Corpuscular Volume 95.2 fl (80-100); Mean Platelet Volume 9.3 fl (7.4-10.4); Monocytes Absolute Auto 0.8 K/mm3 (0.1-0.6); Neutrophils Absolute Auto 5.5 K/mm3 (1.3-6.7); Neutrophils Percent Auto 54.2 % (45.5-73.1); Platelet Count Result 154 k/mm3 (150-375); Red Blood Count 4.38 M/mm3 (4.6-6.20); Red Cell Distribution Width 14.1 % (11.5-14.5); White Blood Count 10.1 K/mm3 (4.5-10.0)
[2024-11-30 05:03] LABS: Alanine Aminotransferase 22 U/L (6-50); Albumin Level 3.6 g/dL (3.5-5.1); Alkaline Phosphatase 63 U/L (38-126); Anion Gap 4 mmol/L (4-12); Aspartate Amino Transferase 24 U/L (17-59); Bilirubin,Total 0.4 mg/dL (0.2-1.3); Blood Urea Nitrogen 41 mg/dL (9-20); Calcium 8.9 mg/dL (8.4-10.2); Carbon Dioxide 36 mmol/L (22-30); Chloride 94 mmol/L (98-107); Estimated CRCL calculation 53 ml/min; Estimated Glomerular Filt Rate > 60; Glucose 103 mg/dL (65-110); Phosphorus 4.9 mg/dL (2.5-4.5); Potassium 4.5 mmol/L (3.4-5.0); Sodium 134 mmol/L (137-145)
[2024-11-30 05:26] LABS: Glucose Point of Care 117 mg/dl (65-105)
[2024-11-30] MEDS: SERTRALINE HCL 50 MG TABLET 100 MG PO (08:03)
[2024-11-30] MEDS: GABAPENTIN 300 MG CAPSULE PO (08:03)
[2024-11-30] MEDS: RIVAROXABAN 20 MG TABLET PO (08:03)
[2024-11-30] MEDS: AMOXICILLIN/CLAVULANATE K 875-125 MG TAB 1 TABLET PO ×2 (08:03→21:36)
[2024-11-30] MEDS: FOLIC ACID 1 MG TABLET PO (08:04)
[2024-11-30] MEDS: THIAMINE HCL 100 MG TABLET PO (08:04)
[2024-11-30] MEDS: METOPROLOL SUCCINATE EXT REL 100 MG TABCR PO (08:33)
[2024-11-30] MEDS: BUPRENORPHINE/NALOXONE (*CRX) 4 MG/1 MG SL FILM 1 EACH SUBLINGUAL ×4 (08:33→21:36)
[2024-11-30] MEDS: TAMSULOSIN HCL 0.4 MG CAPSULE PO (08:33)
--- NOTE | 2024-11-30 08:34 | PC.NURSE ---
Spoke with Dr. Oro regarding pt's blood pressure of 91/62. Order received to administer the 100 mg PO Metoprolol now and to hold on the other medications at this time (40mg PO Furosemide, 50mg PO Losartan). May administer other medications as BP tolerates throughout the day.
--- NOTE | 2024-11-30 09:34 | P.PNCA_ITS ---
Progress Note: A&P Assessment and Plan (1) Atrial fibrillation with rapid ventricular response: Code(s): I48.91 - Unspecified atrial fibrillation Status: Acute Assessment and Plan: Continue metoprolol and Xarelto. Heart rate seems to be controlled without digoxin (2) Hypertension: Code(s): I10 - Essential (primary) hypertension Status: Acute Assessment and Plan: Continue losartan 50 mg daily. Metoprolol was increased and will need to assess tolerance given hypotension. (3) Cardiomyopathy: Qualifiers: Cardiomyopathy type: unspecified Qualified Code(s): I42.9 - Cardiomyopathy, unspecified Code(s): I42.9 - Cardiomyopathy, unspecified Status: Acute Assessment and Plan: Improved. Add back spironolactone when able. Will reduce his furosemide at 20 mg daily. Plan 1. Atrial fibrillation with RVR. In setting of alcohol withdrawal, amphetamine use, sepsis. 2. Sepsis 3. Alcohol withdrawal 4. Cardiomyopathy. LVEF in the past in the 40s, last echo with LVEF 50-55%. 5. Hypertension 6. COPD 7. Alcohol abuse 8. Polysubstance abuse. UDS this admission positive for amphetamine. Subjective Date/time seen: 11/30/24 09:34 Interval history: Interval history: Reason for consult: Alcohol withdrawal, methamphetamine abuse, AFib RVR, status post Precedex Date of service 11/30/2024: Heart rate generally controlled. Patient feels better. No chest pain or shortness of breath. Review of Systems Review of Systems: All systems reviewed & are unremarkable except as noted in HPI and below Cardiovascular: Cardiovascular: Denies chest pain and Denies palpitations Respiratory: Respiratory: Denies chest congestion Gastrointestinal: Gastrointestinal: Denies abdominal pain Exam Const: General: no acute distress Eyes: General: appearance normal, both eyes and all related structures Sclera: sclerae normal Cardio: Rate: tachycardic Rhythm: abnormal rhythm irregularly irregular Heart sounds: Murmur heart sound present systolic Neuro: Speech: normal speech Psych: Mental Status: mental status grossly normal Affect: normal affect Objective Data Vital Signs Vital Signs: Vital Signs - 24 hr 11/29/24 12:00 11/29/24 12:00 11/29/24 14:35 Temperature Pulse Rate 101 H 110 H Pulse Rate [Monitor] 96 Respiratory Rate 20 Blood Pressure Pulse Oximetry Oxygen Delivery Oxygen Flow Rate Fraction of Inspired Oxygen 11/29/24 14:53 11/29/24 16:00 11/29/24 16:00 Temperature Pulse Rate 101 H 117 H Pulse Rate [Monitor] 117 H Respiratory Rate 20 Blood Pressure 107/83 Pulse Oximetry Oxygen Delivery Oxygen Flow Rate Fraction of Inspired Oxygen 11/29/24 16:00 11/29/24 19:39 11/29/24 19:39 Temperature 36.8 C Pulse Rate 123 H 102 H Pulse Rate [Monitor] Respiratory Rate 19 18 Blood Pressure 107/83 Pulse Oximetry 92 95 Oxygen Delivery Room Air Oxygen Flow Rate Fraction of Inspired Oxygen 21 11/29/24 19:52 11/29/24 20:00 11/29/24 20:00 Temperature Pulse Rate 98 Pulse Rate [Monitor] 106 H Respiratory Rate 18 Blood Pressure Pulse Oximetry 92 Oxygen Delivery Room Air Oxygen Flow Rate Fraction of Inspired Oxygen 11/29/24 20:00 11/30/24 00:00 11/30/24 00:00 Temperature 36.6 C Pulse Rate 102 H 101 H Pulse Rate [Monitor] 101 H Respiratory Rate 14 Blood Pressure 96/66 L Pulse Oximetry 96 Oxygen Delivery Oxygen Flow Rate Fraction of Inspired Oxygen 11/30/24 00:00 11/30/24 01:31 11/30/24 01:31 Temperature Pulse Rate 101 H 99 Pulse Rate [Monitor] Respiratory Rate 18 Blood Pressure Pulse Oximetry 94 Oxygen Delivery Nasal Cannula Oxygen Flow Rate 2 Fraction of Inspired Oxygen 28 11/30/24 01:40 11/30/24 04:00 11/30/24 04:00 Temperature Pulse Rate 99 99 Pulse Rate [Monitor] 99 Respiratory Rate 16 Blood Pressure Pulse Oximetry Oxygen Delivery Oxygen Flow Rate Fraction of Inspired Oxygen 11/30/24 08:00 11/30/24 08:00 11/30/24 08:33 Temperature 36.7 C Pulse Rate 86 97 92 Pulse Rate [Monitor] Respiratory Rate 17 14 Blood Pressure 91/62 L Pulse Oximetry 93 93 Oxygen Delivery Room Air Oxygen Flow Rate Fraction of Inspired Oxygen 11/30/24 08:43 11/30/24 08:56 Temperature Pulse Rate 87 97 Pulse Rate [Monitor] Respiratory Rate 14 14 Blood Pressure Pulse Oximetry Oxygen Delivery Oxygen Flow Rate Fraction of Inspired Oxygen Intake/Output Intake/Output: Intake & Output 11/27/24 11/28/24 11/29/24 11/30/24 23:59 23:59 23:59 23:59 Intake Total 2273.9 980 1050 740 Output Total 9695 8087 1400 550 Balance 1198.9 -1345 -350 190 Meds/Results Medications: Active Medications Generic Name Dose Route Start Last Admin Trade Name Freq PRN Reason Stop Dose Admin Acetaminophen 650 mg 11/25/24 22:08 11/29/24 09:47 Acetaminophen 325 Mg Tablet PO 650 mg Q4H PRN Administration Mild Pain (1-3) or Fever Amoxicillin/Clavulanate Potassium 1 tablet 11/29/24 09:00 11/30/24 08:03 Amoxicillin/Clavulanate K 875-125 Mg Tab PO 12/02/24 21:01 1 tablet Q12HR MIGUEL A Administration Buprenorphine/Naloxone 1 each 11/27/24 09:00 11/30/24 08:33 Buprenorphine/Naloxone (*Crx) 4 Mg/1 Mg Sl Film SUBLINGUAL 1 each QID MIGUEL A Administration Chlordiazepoxide HCl 50 mg 11/27/24 12:00 11/30/24 05:18 Chlordiazepoxide (*Crx) 25 Mg Capsule PO 50 mg Q6HR MIGUEL A Administration Dextrose 12.5 gm 11/30/24 00:34 Dextrose 50% 25 Gm/50 Ml Syringe IV PUSH PRN PRN Hypoglycemia Protocol Fluticasone/Umeclidinium/Vilanterol 1 puff 11/26/24 08:00 11/29/24 08:20 Fluticasone/Umeclidin/Vilanter 200-62.5-25 Mcg Ellipta INHALATION Not Given DAILYRT MIGUEL A Folic Acid 1 mg 11/26/24 09:00 11/30/24 08:04 Folic Acid 1 Mg Tablet PO 1 mg DAILY MIGUEL A Administration Furosemide 40 mg 11/28/24 09:00 11/29/24 09:47 Furosemide 40 Mg Tablet PO 40 mg DAILY MIGUEL A Administration Gabapentin 300 mg 11/26/24 09:00 11/30/24 08:03 Gabapentin 300 Mg Capsule PO 300 mg DAILY MIGUEL A Administration Glucagon 1 mg 11/30/24 00:34 Glucagon For Inj 1 Mg Vial IM PRN PRN Hypoglycemia Protocol Glucose 15 gm 11/30/24 00:34 Glucose Oral Gel 15 Gm Of Glucse In 37.5 Gm Tube PO PRN PRN Hypoglycemia Protocol Dextrose 1,000 mls @ 100 mls/hr 11/30/24 00:34 Dextrose 5% 1,000 Ml IVPB PRN PRN Hypoglycemia Protocol Insulin Aspart 3 - 6 units 11/30/24 01:00 11/30/24 05:22 Insulin Aspart (*Bkc) 100 Units/Ml SUB-Q Not Given Q6HR [facility] Protocol Ipratropium [place] 0.5 mg 11/26/24 20:00 11/30/24 08:39 Ipratropium Br 0.02% Inh Soln 0.5 Mg/2.5 Ml Vial INHALATION 0.5 mg Q6HRT MIGUEL A Administration Levalbuterol HCl 0.63 mg 11/26/24 20:00 11/30/24 08:40 Levalbuterol Neb 1.25 Mg/3 Ml INHALATION 0.63 mg Q6HRT MIGUEL A Administration Lorazepam 2 mg 11/26/24 07:10 11/26/24 11:49 Lorazepam Inj (*Crx) 2 Mg/Ml Vial IV PUSH 2 mg Q2H PRN Administration CIWA > 15 Lorazepam 2 mg 11/26/24 07:10 11/27/24 21:05 Lorazepam Inj (*Crx) 2 Mg/Ml Vial IV PUSH 2 mg Q4H PRN Administration CIWA 8-15 Losartan Potassium 50 mg 11/26/24 09:00 11/29/24 09:46 Losartan Potassium 50 Mg Tablet PO 50 mg DAILY MIGUEL A Administration Metoprolol Succinate 100 mg 11/30/24 09:00 11/30/24 08:33 Metoprolol Succinate Ext Rel 100 Mg Tabcr PO 100 mg QAM MIGUEL A Administration Metoprolol Tartrate 5 mg 11/28/24 07:56 Metoprolol Tartrate Inj 5 Mg/5 Ml Vial IV PUSH Q4H PRN Tachyarrhythmias Mirtazapine 15 mg 11/30/24 21:00 Mirtazapine 15 Mg Tablet PO HS MIGUEL A Nicotine 1 patch 11/26/24 09:27 11/27/24 02:14 Nicotine (*Pbkc) 21 Mg Patch TRANSDERM 1 patch DAILY PRN Administration Nicotine withdrawal Ondansetron HCl 4 mg 11/25/24 22:08 11/28/24 08:38 Ondansetron Inj 4 Mg/2 Ml Vial IV PUSH 4 mg Q4H PRN Administration Nausea Rivaroxaban 20 mg 11/26/24 09:00 11/30/24 08:03 Rivaroxaban 20 Mg Tablet PO 20 mg DAILY MIGUELA Administration Sertraline HCl 100 mg 11/26/24 09:00 11/30/24 08:03 Sertraline Hcl 50 Mg Tablet PO 100 mg DAILY MIGUEL A Administration Tamsulosin HCl 0.4 mg 11/26/24 09:20 11/30/24 08:33 Tamsulosin Hcl 0.4 Mg Capsule PO 0.4 mg QAM MIGUEL A Administration Thiamine HCl 100 mg 11/26/24 09:00 11/30/24 08:04 Thiamine Hcl 100 Mg Tablet PO 100 mg QAM MIGUEL A Administration Radiology Results: ITS Impressions Chest X-Ray 11/25/24 19:08 IMPRESSION: Severe centrilobular emphysema without focal infiltrate or effusion. Labs Labs: Laboratory Results - last 24 hr 11/29/24 11/29/24 11/29/24 10:48 11:46 17:46 WBC RBC Hgb Hct MCV MCH MCHC RDW Plt Count MPV Immature Gran % (Auto) Neut % (Auto) Lymph % (Auto) [place] % (Auto) Eos % (Auto) Baso % (Auto) Lymph # (Auto) [place] # (Auto) Eos # (Auto) Baso # (Auto) Abs Immat Gran (auto) Absolute Neuts (auto) Absolute Nucleated RBC Nucleated RBC % Sodium Potassium Chloride Carbon Dioxide Anion Gap BUN Creatinine Estim Creat Clear Calc Estimated GFR Glucose POC Capillary Glucose 144 H 155 H Calcium Phosphorus Magnesium Total Bilirubin AST ALT Alkaline Phosphatase Total Protein Albumin TSH 0.729 11/30/24 11/30/24 11/30/24 00:02 04:30 05:20 WBC 10.1 H RBC 4.38 L Hgb 13.0 L Hct 41.7 L MCV 95.2 MCH 29.7 MCHC 31.2 L RDW 14.1 Plt Count 154 MPV 9.3 Immature Gran % (Auto) 0.4 Neut % (Auto) 54.2 Lymph % (Auto) 32.4 [place] % (Auto) 8.0 Eos % (Auto) 4.5 H Baso % (Auto) 0.5 Lymph # (Auto) 3.29 H [place] # (Auto) 0.8 H Eos # (Auto) 0.5 H Baso # (Auto) 0.1 Abs Immat Gran (auto) 0.04 H Absolute Neuts (auto) 5.5 Absolute Nucleated RBC 0.000 Nucleated RBC % 0.0 Sodium 134 L Potassium 4.5 Chloride 94 L Carbon Dioxide 36 H Anion Gap 4 BUN 41 H D Creatinine 1.05 Estim Creat Clear Calc 53 Estimated GFR > 60 Glucose 103 POC Capillary Glucose 243 H 117 H Calcium 8.9 Phosphorus 4.9 H Magnesium 2.0 Total Bilirubin 0.4 AST 24 ALT 22 Alkaline Phosphatase 63 Total Protein 7.0 Albumin 3.6 TSH
[2024-11-30 11:27] LABS: Glucose Point of Care 139 mg/dl (65-105)
[2024-11-30 12:24] LABS: Hemoglobin A1C 5.6 % (<5.7)
[2024-11-30] MEDS: LOSARTAN POTASSIUM 50 MG TABLET PO (12:55)
--- NOTE | 2024-11-30 13:12 | PC.NURSE ---
Assumed care of this patient at 1230. Received report from Lis. Labs, medications, and orders reviewed. Upon assessment vital signs are stable, patient is alert and oriented, no acute distress note, skin warm and dry, no acute changes, pain assessed and managed per orders.. IVs intact and functioning as expected.
[2024-11-30 16:26] LABS: Glucose Point of Care 132 mg/dl (65-105)
--- NOTE | 2024-11-30 17:56 | P.PNIM_ITS ---
Progress Note: A&P Assessment and Plan (1) Atrial fibrillation with rapid ventricular response: Code(s): I48.91 - Unspecified atrial fibrillation Status: Acute (2) Sepsis: Qualifiers: Sepsis type: sepsis due to unspecified organism Sepsis acute organ dysfunction status: without acute organ dysfunction Qualified Code(s): A41.9 - Sepsis, unspecified organism Code(s): A41.9 - Sepsis, unspecified organism Status: Acute (3) Opiate overdose: Qualifiers: Encounter type: initial encounter Injury intent: accidental or unintentional Qualified Code(s): T40.601A - Poisoning by unspecified narcotics, accidental (unintentional), initial encounter Code(s): T40.601A - Poisoning by unspecified narcotics, accidental (unintentional), initial encounter Status: Acute (4) Acute dehydration: Code(s): E86.0 - Dehydration Status: Acute (5) Alcohol abuse: Code(s): F10.10 - Alcohol abuse, uncomplicated Status: Acute (6) Lactic acidosis: Code(s): E87.20 - Acidosis, unspecified Status: Acute (7) Cardiomyopathy: Qualifiers: Cardiomyopathy type: unspecified Qualified Code(s): I42.9 - Cardiomyopathy, unspecified Code(s): I42.9 - Cardiomyopathy, unspecified Status: Acute (8) Tobacco abuse disorder: Code(s): Z72.0 - Tobacco use Status: Acute (9) BPH with urinary obstruction: Code(s): N40.1 - Benign prostatic hyperplasia with lower urinary tract symptoms; N13.8 - Other obstructive and reflux uropathy Status: Acute (10) Opiate withdrawal: Code(s): F11.93 - Opioid use, unspecified with withdrawal Status: Acute (11) Alcohol withdrawal: Code(s): F10.939 - Alcohol use, unspecified with withdrawal, unspecified Status: Acute (12) Atrial fibrillation: Code(s): I48.91 - Unspecified atrial fibrillation Status: Chronic Plan 64-year-old male with a past medical history of polysubstance abuse, alcohol abuse, tobacco dependence cardiomyopathy, atrial fibrillation and COPD who presented to the ER from home via EMS due to being found unresponsive. Patient has history of fentanyl abuse either snorting or IV injection. he received 6 mg of IV Narcan with return of mentation and breathing. He was noted to be tachycardic with heart rates in the 180s in the field. Alcohol withdrawal and fentanyl withdrawal When I saw exam patient, patient was somnolent, agitated, patient was diaphoretic,pulling lines Patient also has a tachycardia tachypnea, patient has visual hallucination Patient has severe high alcohol withdrawal and opiate withdrawal Patient received different p.o., Ativan push 2 mg x 2 and 1 mg IV push in coke [place] Patient still agitated, diaphoretic Discussed the case with regional climate change analyst, move patient to ICU for close monitoring and start better diet as for sedation Also provide thiamine folic acid Anxiety is well controlled today, patient is still Precedex infusion that is tapered down 11/27 off Precedex infusion since 3:00 p.m. on 11/27. Continue CIWA protocol, Judy chowdhury p.r.nMigue Ativan. continue folic acid and thiamine 11/28 Sepsis Patient is a tachycardia tachypnea, leukocytosis, lactic acidosis, meeting criteria of sepsis UA shows pyuria No bacterial growth from blood culture urine culture Provide fluid resuscitation Ceftriaxone 1 mg IV daily Complicated UTI Patient has BPH UA showed pyuria Antibiotics see above No growth from urine culture AFib RVR Uncontrolled heart rate Likely secondary to alcohol withdrawal, opioid withdrawal, dehydration, infection Started Cardizem drip Continue Xarelto p.o. Continue metoprolol p.o. rate is controlled off Cardizem drip 11/27 COPD exacerbation Start bronchodilators Start O2 therapy to keep pulse of 92 Dehydration ELEVATED BUN CREATININE RATIO 41/0.68 Started lactated Ringer IV 100 mL/hour Corrected off Precedex infusion. he denies visual hallucination, anxiety, chest pain, shortness of breath, abdominal pain, nausea, vomiting at this time. Urine output has been adequate, patient is afebrile and hemodynamically stable. Patient is tachycardic patient is doing better today does not show any sign or symptoms of alcohol withdrawal, patient develped A. fib RVR now the rate is controlled, with BB and anticoagulated with Xarelto. patient is clinically stable. patient is seen by regional climate change analyst and assistant maintenance manager. Appreciate regional climate change analyst consultation, continue monitor patient closely in ICU today Subjective Date/time seen: 11/30/24 17:56 Interval history: off Precedex infusion. he denies visual hallucination, anxiety, chest pain, shortness of breath, abdominal pain, nausea, vomiting at this time. Urine output has been adequate, patient is afebrile and hemodynamically stable. Patient is tachycardic patient is doing better today does not show any sign or symptoms of alcohol withdrawal, patient develped A. fib RVR now the rate is controlled, with BB and anticoagulated with Xarelto. patient is clinically stable. patient is seen by regional climate change analyst and assistant maintenance manager. Review of Systems Review of Systems: 12 systems were reviewed with pertinent positives and negatives per HPI. Except as documented in the HPI, all other systems were reviewed and are negative. All systems reviewed & are unremarkable except as noted in HPI and below Exam Narrative: Patient is comfortable, NAD HEENT: eyes are clear and none icteric LUNGS:CTA HEART: RR S1S2 ABD: BS+, Soft and nontender Lower extremities: no edema SKIN: nonjaundiced Neuro: grossly intact. Objective Data Vital Signs Vital Signs: Vital Signs - 24 hr 11/29/24 19:39 11/29/24 19:39 11/29/24 19:52 Temperature Pulse Rate 102 H 98 Pulse Rate [Monitor] Respiratory Rate 18 18 Blood Pressure Pulse Oximetry 95 Oxygen Delivery Room Air Oxygen Flow Rate Fraction of Inspired Oxygen 21 11/29/24 20:00 11/29/24 20:00 11/29/24 20:00 Temperature Pulse Rate 102 H Pulse Rate [Monitor] 106 H Respiratory Rate Blood Pressure Pulse Oximetry 92 Oxygen Delivery Room Air Oxygen Flow Rate Fraction of Inspired Oxygen 11/30/24 00:00 11/30/24 00:00 11/30/24 00:00 Temperature 36.6 C Pulse Rate 101 H 101 H Pulse Rate [Monitor] 101 H Respiratory Rate 14 Blood Pressure 96/66 L Pulse Oximetry 96 Oxygen Delivery Oxygen Flow Rate Fraction of Inspired Oxygen 11/30/24 01:31 11/30/24 01:31 11/30/24 01:40 Temperature Pulse Rate 99 99 Pulse Rate [Monitor] Respiratory Rate 18 16 Blood Pressure Pulse Oximetry 94 Oxygen Delivery Nasal Cannula Oxygen Flow Rate 2 Fraction of Inspired Oxygen 28 11/30/24 04:00 11/30/24 04:00 11/30/24 08:00 Temperature 36.7 C Pulse Rate 99 86 Pulse Rate [Monitor] 99 Respiratory Rate 17 Blood Pressure 91/62 L Pulse Oximetry 93 Oxygen Delivery Oxygen Flow Rate Fraction of Inspired Oxygen 11/30/24 08:00 11/30/24 08:00 11/30/24 08:33 Temperature Pulse Rate 97 103 H 92 Pulse Rate [Monitor] Respiratory Rate 14 Blood Pressure Pulse Oximetry 93 Oxygen Delivery Room Air Oxygen Flow Rate Fraction of Inspired Oxygen 11/30/24 08:43 11/30/24 08:56 11/30/24 12:00 Temperature Pulse Rate 87 97 103 H Pulse Rate [Monitor] Respiratory Rate 14 14 Blood Pressure Pulse Oximetry Oxygen Delivery Oxygen Flow Rate Fraction of Inspired Oxygen 11/30/24 12:12 11/30/24 14:14 11/30/24 14:14 Temperature Pulse Rate 94 Pulse Rate [Monitor] Respiratory Rate 14 Blood Pressure 102/62 Pulse Oximetry 96 Oxygen Delivery Room Air Oxygen Flow Rate Fraction of Inspired Oxygen 11/30/24 14:30 11/30/24 16:00 11/30/24 16:00 Temperature 36.7 C Pulse Rate 91 90 97 Pulse Rate [Monitor] Respiratory Rate 14 12 Blood Pressure 90/68 L Pulse Oximetry 94 Oxygen Delivery Oxygen Flow Rate Fraction of Inspired Oxygen Intake/Output Intake/Output: Intake & Output 11/27/24 11/28/24 11/29/24 11/30/24 23:59 23:59 23:59 23:59 Intake Total 2273.9 980 1050 890 Output Total 1075 2325 1400 1000 Balance 1198.9 -1345 -350 -110 Meds/Results Medications: Active Medications Generic Name Dose Route Start Last Admin Trade Name Freq PRN Reason Stop Dose Admin Acetaminophen 650 mg 11/25/24 22:08 11/29/24 09:47 Acetaminophen 325 Mg Tablet PO 650 mg Q4H PRN Administration Mild Pain (1-3) or Fever Amoxicillin/Clavulanate Potassium 1 tablet 11/29/24 09:00 11/30/24 08:03 Amoxicillin/Clavulanate K 875-125 Mg Tab PO 12/02/24 21:01 1 tablet Q12HR MIGUEL A Administration Buprenorphine/Naloxone 1 each 11/27/24 09:00 11/30/24 12:55 Buprenorphine/Naloxone (*Crx) 4 Mg/1 Mg Sl Film SUBLINGUAL 1 each QID MIGUEL A Administration Chlordiazepoxide HCl 50 mg 11/27/24 12:00 11/30/24 12:55 Chlordiazepoxide (*Crx) 25 Mg Capsule PO 50 mg Q6HR MIGUEL A Administration Dextrose 12.5 gm 11/30/24 00:34 Dextrose 50% 25 Gm/50 Ml Syringe IV PUSH PRN PRN Hypoglycemia Protocol Fluticasone/Umeclidinium/Vilanterol 1 puff 11/26/24 08:00 11/30/24 14:17 Fluticasone/Umeclidin/Vilanter 200-62.5-25 Mcg Ellipta INHALATION Not Given DAILYRT MIGUEL A Folic Acid 1 mg 11/26/24 09:00 11/30/24 08:04 Folic Acid 1 Mg Tablet PO 1 mg DAILY MIGUEL A Administration Furosemide 20 mg 12/01/24 09:00 Furosemide 20 Mg Tablet PO DAILY MIGUEL A Gabapentin 300 mg 11/26/24 09:00 11/30/24 08:03 Gabapentin 300 Mg Capsule PO 300 mg DAILY MIGUEL A Administration Glucagon 1 mg 11/30/24 00:34 Glucagon For Inj 1 Mg Vial IM PRN PRN Hypoglycemia Protocol Glucose 15 gm 11/30/24 00:34 Glucose Oral Gel 15 Gm Of Glucse In 37.5 Gm Tube PO PRN PRN Hypoglycemia Protocol Dextrose 1,000 mls @ 100 mls/hr 11/30/24 00:34 Dextrose 5% 1,000 Ml IVPB PRN PRN Hypoglycemia Protocol Insulin Aspart 3 - 6 units 11/30/24 12:00 11/30/24 12:14 Insulin Aspart (*Bkc) 100 Units/Ml SUB-Q Not Given TIDWM [facility] Protocol Ipratropium [place] 0.5 mg 11/26/24 20:00 11/30/24 14:14 Ipratropium Br 0.02% Inh Soln 0.5 Mg/2.5 Ml Vial INHALATION 0.5 mg Q6HRT MIGUEL A Administration Levalbuterol HCl 0.63 mg 11/26/24 20:00 11/30/24 14:13 Levalbuterol Neb 1.25 Mg/3 Ml INHALATION 0.63 mg Q6HRT MIGUEL A Administration Lorazepam 2 mg 11/26/24 07:10 11/26/24 11:49 Lorazepam Inj (*Crx) 2 Mg/Ml Vial IV PUSH 2 mg Q2H PRN Administration CIWA > 15 Lorazepam 2 mg 11/26/24 07:10 11/27/24 21:05 Lorazepam Inj (*Crx) 2 Mg/Ml Vial IV PUSH 2 mg Q4H PRN Administration CIWA 8-15 Losartan Potassium 50 mg 11/26/24 09:00 11/30/24 12:55 Losartan Potassium 50 Mg Tablet PO 50 mg DAILY MIGUEL A Administration Metoprolol Succinate 100 mg 11/30/24 09:00 11/30/24 08:33 Metoprolol Succinate Ext Rel 100 Mg Tabcr PO 100 mg QAM MIGUEL A Administration Metoprolol Tartrate 5 mg 11/28/24 07:56 Metoprolol Tartrate Inj 5 Mg/5 Ml Vial IV PUSH Q4H PRN Tachyarrhythmias Mirtazapine 15 mg 11/30/24 21:00 Mirtazapine 15 Mg Tablet PO HS [facility] Nicotine 1 patch 11/26/24 09:27 11/27/24 02:14 Nicotine (*[place]) 21 Mg Patch TRANSDERM 1 patch DAILY PRN Administration Nicotine withdrawal Ondansetron HCl 4 mg 11/25/24 22:08 11/28/24 08:38 Ondansetron Inj 4 Mg/2 Ml Vial IV PUSH 4 mg Q4H PRN Administration Nausea Rivaroxaban 20 mg 11/26/24 09:00 11/30/24 08:03 Rivaroxaban 20 Mg Tablet PO 20 mg DAILY MIGUEL A Administration Sertraline HCl 100 mg 11/26/24 09:00 11/30/24 08:03 Sertraline Hcl 50 Mg Tablet PO 100 mg DAILY MIGUEL A Administration Tamsulosin HCl 0.4 mg 11/26/24 09:20 11/30/24 08:33 Tamsulosin Hcl 0.4 Mg Capsule PO 0.4 mg QAM MIGUEL A Administration Thiamine HCl 100 mg 11/26/24 09:00 11/30/24 08:04 Thiamine Hcl 100 Mg Tablet PO 100 mg QAM MIGUEL A Administration Radiology Results: ITS Impressions Chest X-Ray 11/25/24 19:08 IMPRESSION: Severe centrilobular emphysema without focal infiltrate or effusion. Labs Labs: Laboratory Results - last 24 hr 11/29/24 11/30/24 11/30/24 17:46 00:02 04:23 WBC RBC Hgb Hct MCV MCH MCHC RDW Plt Count MPV Immature Gran % (Auto) Neut % (Auto) Lymph % (Auto) [place] % (Auto) Eos % (Auto) Baso % (Auto) Lymph # (Auto) [place] # (Auto) Eos # (Auto) Baso # (Auto) Abs Immat Gran (auto) Absolute Neuts (auto) Absolute Nucleated RBC Nucleated RBC % Sodium Potassium Chloride Carbon Dioxide Anion Gap BUN Creatinine Estim Creat Clear Calc Estimated GFR Glucose POC Capillary Glucose 155 H 243 H Hemoglobin A1c 5.6 Calcium Phosphorus Magnesium Total Bilirubin AST ALT Alkaline Phosphatase Total Protein Albumin 11/30/24 11/30/24 11/30/24 04:30 05:20 11:25 WBC 10.1 H RBC 4.38 L Hgb 13.0 L Hct 41.7 L MCV 95.2 MCH 29.7 MCHC 31.2 L RDW 14.1 Plt Count 154 MPV 9.3 Immature Gran % (Auto) 0.4 Neut % (Auto) 54.2 Lymph % (Auto) 32.4 [place] % (Auto) 8.0 Eos % (Auto) 4.5 H Baso % (Auto) 0.5 Lymph # (Auto) 3.29 H [place] # (Auto) 0.8 H Eos # (Auto) 0.5 H Baso # (Auto) 0.1 Abs Immat Gran (auto) 0.04 H Absolute Neuts (auto) 5.5 Absolute Nucleated RBC 0.000 Nucleated RBC % 0.0 Sodium 134 L Potassium 4.5 Chloride 94 L Carbon Dioxide 36 H Anion Gap 4 BUN 41 H D Creatinine 1.05 Estim Creat Clear Calc 53 Estimated GFR > 60 Glucose 103 POC Capillary Glucose 117 H 139 H Hemoglobin A1c Calcium 8.9 Phosphorus 4.9 H Magnesium 2.0 Total Bilirubin 0.4 AST 24 ALT 22 Alkaline Phosphatase 63 Total Protein 7.0 Albumin 3.6 11/30/24 16:22 WBC RBC Hgb Hct MCV MCH MCHC RDW Plt Count MPV Immature Gran % (Auto) Neut % (Auto) Lymph % (Auto) [place] % (Auto) Eos % (Auto) Baso % (Auto) Lymph # (Auto) [place] # (Auto) Eos # (Auto) Baso # (Auto) Abs Immat Gran (auto) Absolute Neuts (auto) Absolute Nucleated RBC Nucleated RBC % Sodium Potassium Chloride Carbon Dioxide Anion Gap BUN Creatinine Estim Creat Clear Calc Estimated GFR Glucose POC Capillary Glucose 132 H Hemoglobin A1c Calcium Phosphorus Magnesium Total Bilirubin AST ALT Alkaline Phosphatase Total Protein Albumin Quality VTE Prophylaxis VTE prophylaxis: pharmacologic ordered
[2024-11-30] MEDS: SODIUM CHLORIDE 0.9% IV 500 ML IV CONT (20:22)
[2024-11-30] MEDS: MIRTAZAPINE 15 MG TABLET PO (21:36)
--- NOTE | 2024-11-30 22:00 | PC.NURSE ---
Patient able to void 500ml.
--- NOTE | 2024-11-30 22:15 | PC.NURSE ---
Nikky Ly PSYCHOLOGIST PERSONNEL notified regarding hypotension. Medications reviewed, new orders to be received. Patient also unable to void > 700 on bladder scan. Patient refusing catheter at this time.
--- NOTE | 2024-11-30 22:30 | PC.NURSE ---
Nikky Ly LINE REPAIRER TOWER notified regarding persistent Hypotension
[2024-12-01] VITALS (14 sets, daily range): BP systolic 83–116; BP diastolic 61–77; PULSE 80–101; RESP 12–22; TEMP 36.6–36.7; O2SAT 93–97
--- NOTE | 2024-12-01 00:01 | PC.NURSE ---
Updated Nikky Ly regarding current vital signs. Hold midnight dose of Librium
[2024-12-01] MEDS: LEVALBUTEROL NEB 1.25 MG/3 ML 0.63 MG INHALATION ×4 (02:15→21:00)
[2024-12-01] MEDS: IPRATROPIUM BR 0.02% INH SOLN 0.5 MG/2.5 ML VIAL INHALATION ×4 (02:15→21:20)
[2024-12-01] MEDS: AMOXICILLIN/CLAVULANATE K 875-125 MG TAB 1 TABLET PO ×2 (08:14→20:12)
[2024-12-01] MEDS: LACTATED RINGERS 500 ML IV CONT (08:14)
[2024-12-01] MEDS: ALBUMIN HUMAN 25% 25 GM/100 ML 100 ML IVPB ×3 (08:14→17:51)
[2024-12-01] MEDS: BUPRENORPHINE/NALOXONE (*CRX) 4 MG/1 MG SL FILM 1 EACH SUBLINGUAL ×4 (08:14→20:12)
[2024-12-01] MEDS: SERTRALINE HCL 50 MG TABLET 100 MG PO (08:15)
[2024-12-01] MEDS: THIAMINE HCL 100 MG TABLET PO (08:15)
[2024-12-01] MEDS: FOLIC ACID 1 MG TABLET PO (08:15)
[2024-12-01] MEDS: GABAPENTIN 300 MG CAPSULE PO (08:15)
[2024-12-01] MEDS: RIVAROXABAN 20 MG TABLET PO (08:15)
[2024-12-01] MEDS: TAMSULOSIN HCL 0.4 MG CAPSULE PO (08:15)
[2024-12-01 08:27] LABS: Glucose Point of Care 149 mg/dl (65-105)
[2024-12-01] MEDS: FLUTICASONE/UMECLIDIN/VILANTER 200-62.5-25 MCG ELLIPTA 1 PUFF INHALATION (09:43)
[2024-12-01 10:55] LABS: Lactic Acid Reflex 1.3 mmol/L (0.7-2.0)
[2024-12-01 11:38] LABS: Procalcitonin 0.1 ng/mL
[2024-12-01 11:42] LABS: Glucose Point of Care 188 mg/dl (65-105)
--- NOTE | 2024-12-01 12:01 | P.PNIM_ITS ---
Progress Note: A&P Assessment and Plan (1) Sepsis: Code(s): A41.9 - Sepsis, unspecified organism Status: Acute Assessment and Plan: Patient presented with dehydration, opioid overdose, was given Narcan 6 mg by EMS after which she woke up and had normal respirations. -patient had leukocytosis, lactic acidosis, tachypnea, nausea, vomiting -UA reflective of UTI -blood pressures have been low yesterday and overnight likely related to Cozaar, metoprolol and furosemide -renal function is normal -11/26: Blood cultures negative x2 so far -11/25: Urine cultures: Proteus mirabilis - pansensitive -patient was switched to Augmentin on 11/29 prior to which he was on ceftriaxone -12/01: Blood pressures are low, requiring IV fluids 500 mL bolus x2 and albumin for intravascular volume expansion. Likely related to increase in metoprolol by Cardiology and also adding Cozaar and furosemide. Patient has had adequate urine output -lactic acid 1.3 and procalcitonin 0.1, are within normal limits -continue to monitor blood pressures (2) Alcohol withdrawal: Code(s): F10.939 - Alcohol use, unspecified with withdrawal, unspecified Status: Acute Assessment and Plan: Patient now in alcohol withdrawal for which he is being transferred to the ICU -CIWA scores have gone from 8 to22 patient has received multiple doses of Ativan, also on Librium -patient is getting agitated, trying to pull on lines and has removed 1 line, removing leads as well as O2 sat monitor -patient brought to the ICU, started on Precedex infusion will maintain RASS of 0 to -1 11/27: Continue to wean Precedex infusion, increased Librium 11/28: Has been off Precedex infusion since 3:00 p.m. on 11/27. Continue CIWA protocol, Librium, p.r.n. Ativan -remains off Precedex infusion, continue CIWA protocol, Librium and p.r.n. Ativan -continue folic acid and thiamine (3) Opiate withdrawal: Code(s): F11.93 - Opioid use, unspecified with withdrawal Status: Acute Assessment and Plan: Will continue to monitor for opiate withdrawal -according to the records, patient had been treated previously with Suboxone but this had not been refilled since September 22. -continue Suboxone at half the dose, discussed with pharmacy, to avoid withdrawal (4) Atrial fibrillation with rapid ventricular response: Code(s): I48.91 - Unspecified atrial fibrillation Status: Acute Assessment and Plan: Patient has a history of AFib, patient was in AFib RVR on admission, improved with IV fluids as patient was dehydrated, also methamphetamine use along with opioid use. -OFF Cardizem infusion -continue Xarelto, -metoprolol was increased by Cardiology, digoxin was discontinued -Cozaar was added on 11/30 along with Lasix which currently on hold due to low blood pressure -heart rates a currently rate control, will continue to monitor (5) BPH with urinary obstruction: Code(s): N40.1 - Benign prostatic hyperplasia with lower urinary tract symptoms; N13.8 - Other obstructive and reflux uropathy Status: Acute Assessment and Plan: Patient's bladder scan at over 600 mL in urine, Lau catheter was inserted. 11/30: Lau catheter was removed, patient had 700 bladder scan, he did have good urine output after that -urine output has been good (6) COPD (chronic obstructive pulmonary disease): Code(s): J44.9 - Chronic obstructive pulmonary disease, unspecified Status: Chronic Assessment and Plan: Patient with history of COPD -continue bronchodilators, -continue Ellipta (7) Acute dehydration: Code(s): E86.0 - Dehydration Status: Acute Assessment and Plan: Adequately fluid-resuscitated (8) Hypertension: Code(s): I10 - Essential (primary) hypertension Status: Acute Assessment and Plan: Will hold losartan and metoprolol since blood pressures are low Plan DVT prophylaxis: Xarelto Stress ulcer prophylaxis: Not indicated Nutrition: Heart healthy diet Code Status: Full code Due to a high probability of clinically significant, life threatening deterioration, the patient required my highest level of preparedness to intervene emergently and I personally spent this critical care time directly and personally managing the patient. This critical care time included obtaining a history; examining the patient; pulse oximetry; ordering and review of studies; arranging urgent treatment with development of a management plan; evaluation of patient's response to treatment; frequent reassessment; and discussions with other providers. It was exclusive of separately billable procedures and treating other patients and teaching time. Please see Assessment and Plan section and the rest of the note for further information on patient assessment and treatment This dictation may have been done utilizing a voice recognition system. Attempts have been made to correct errors. However, there may be uncorrected grammatical, spelling, and recognitions errors present. Subjective Date/time seen: 12/01/24 12:01 Interval history: Patient remains off Precedex infusion for the last 3 days, feels better, denies any chest pain, shortness a breath, abdominal pain, nausea, vomiting at this time. Urine output has been adequate, patient is afebrile. Low blood pressures likely related to starting Cozaar yesterday and increasing metoprolol. Patient required 500 mL IV fluid bolus x2. Holding all antihypertensives and diuretics. Review of Systems Review of Systems: All systems reviewed & are unremarkable except as noted in HPI and below Exam Narrative: General: Disheveled and malnourished individual currently in no acute distress HEENT:? Pupils equal and reactive, sclerae is flushed, dry oral mucosa Neck:? Supple Respiratory:? Clear to auscultation bilateral, no wheezing, adequate air entry Cardiac:? Irregularly irregular, rate controlled Abdomen:? Soft, nontender, nondistended, normoactive bowel sounds Extremities:? No edema, palpable pedal pulses Neuro:? Patient is awake, alert, oriented x3, is able to answer questions appropriately, follows simple commands Skin:? Scabs on lower extremities, bruising on upper extremities, Psych:? Normal mentation and affect Objective Data Vital Signs Vital Signs: Vital Signs - 24 hr 11/30/24 12:12 11/30/24 14:14 11/30/24 14:14 Temperature Pulse Rate 94 Respiratory Rate 14 Blood Pressure 102/62 Pulse Oximetry 96 Oxygen Delivery Room Air 11/30/24 14:30 11/30/24 16:00 11/30/24 16:00 Temperature 98.1 F Pulse Rate 91 90 97 Respiratory Rate 14 12 Blood Pressure 90/68 L Pulse Oximetry 94 Oxygen Delivery 11/30/24 20:00 11/30/24 20:00 11/30/24 20:00 Temperature Pulse Rate 101 H 91 99 Respiratory Rate 18 21 H Blood Pressure 82/65 L Pulse Oximetry 94 95 Oxygen Delivery Room Air 11/30/24 20:03 11/30/24 20:12 11/30/24 20:12 Temperature Pulse Rate 101 H 85 Respiratory Rate 12 Blood Pressure 74/53 L Pulse Oximetry 94 Oxygen Delivery Room Air 11/30/24 20:21 11/30/24 21:00 11/30/24 22:00 Temperature Pulse Rate 101 H 90 86 Respiratory Rate 18 Blood Pressure 85/60 L 81/65 L Pulse Oximetry Oxygen Delivery 11/30/24 22:30 12/01/24 00:00 12/01/24 00:00 Temperature 97.8 F Pulse Rate 88 96 88 Respiratory Rate 17 Blood Pressure 76/56 L 83/62 L Pulse Oximetry 94 Oxygen Delivery 12/01/24 02:00 12/01/24 02:15 12/01/24 02:30 Temperature Pulse Rate 83 83 97 Respiratory Rate 15 12 18 Blood Pressure 90/67 L Pulse Oximetry 93 Oxygen Delivery 12/01/24 04:00 12/01/24 08:00 12/01/24 08:00 Temperature 97.8 F Pulse Rate 81 88 80 Respiratory Rate 16 Blood Pressure 85/62 L Pulse Oximetry 94 Oxygen Delivery 12/01/24 08:00 12/01/24 09:29 12/01/24 09:30 Temperature Pulse Rate 87 Respiratory Rate 16 Blood Pressure Pulse Oximetry 94 96 Oxygen Delivery Room Air Room Air 12/01/24 09:44 Temperature Pulse Rate 92 Respiratory Rate 22 H Blood Pressure Pulse Oximetry Oxygen Delivery Intake/Output Intake/Output: Intake & Output 11/28/24 11/29/24 11/30/24 12/01/24 23:59 23:59 23:59 23:59 Intake Total 980 1050 1240 1300 Output Total 2325 1400 1000 1900 Balance -1345 -350 240 -600 Meds/Results Medications: Active Medications Generic Name Dose Route Start Last Admin Trade Name Berto PRN Reason Stop Dose Admin Acetaminophen 650 mg 11/25/24 22:08 11/29/24 09:47 Acetaminophen 325 Mg Tablet PO 650 mg Q4H PRN Administration Mild Pain (1-3) or Fever Amoxicillin/Clavulanate Potassium 1 tablet 11/29/24 09:00 12/01/24 08:14 Amoxicillin/Clavulanate K 875-125 Mg Tab PO 12/02/24 21:01 1 tablet Q12HR MIGUEL A Administration Buprenorphine/Naloxone 1 each 11/27/24 09:00 12/01/24 08:14 Buprenorphine/Naloxone (*Crx) 4 Mg/1 Mg Sl Film SUBLINGUAL 1 each QID MIGUEL A Administration Chlordiazepoxide HCl 50 mg 11/27/24 12:00 12/01/24 06:18 Chlordiazepoxide (*Crx) 25 Mg Capsule PO Not Given Q6HR MIGUEL A Dextrose 12.5 gm 11/30/24 00:34 Dextrose 50% 25 Gm/50 Ml Syringe IV PUSH PRN PRN Hypoglycemia Protocol Fluticasone/Umeclidinium/Vilanterol 1 puff 11/26/24 08:00 12/01/24 09:43 Fluticasone/Umeclidin/Vilanter 200-62.5-25 Mcg Ellipta INHALATION 1 puff DAILYRT MIGUEL A Administration Folic Acid 1 mg 11/26/24 09:00 12/01/24 08:15 Folic Acid 1 Mg Tablet PO 1 mg DAILY MIGUEL A Administration Furosemide 20 mg 12/01/24 09:00 Furosemide 20 Mg Tablet PO DAILY MIGUEL A Gabapentin 300 mg 11/26/24 09:00 12/01/24 08:15 Gabapentin 300 Mg Capsule PO 300 mg DAILY MIGUEL A Administration Glucagon 1 mg 11/30/24 00:34 Glucagon For Inj 1 Mg Vial IM PRN PRN Hypoglycemia Protocol Glucose 15 gm 11/30/24 00:34 Glucose Oral Gel 15 Gm Of Glucse In 37.5 Gm Tube PO PRN PRN Hypoglycemia Protocol Dextrose 1,000 mls @ 100 mls/hr 11/30/24 00:34 Dextrose 5% 1,000 Ml IVPB PRN PRN Hypoglycemia Protocol Albumin Human 100 mls @ 60 mls/hr 12/01/24 07:46 12/01/24 11:37 Albutein IVPB 12/02/24 01:39 60 mls/hr Q6HR MIGUEL A Administration Insulin Aspart 3 - 6 units 11/30/24 12:00 12/01/24 11:37 Insulin Aspart (*Bkc) 100 Units/Ml SUB-Q Not Given TIDWM [facility] Protocol Ipratropium [place] 0.5 mg 11/26/24 20:00 12/01/24 09:25 Ipratropium Br 0.02% Inh Soln 0.5 Mg/2.5 Ml Vial INHALATION 0.5 mg Q6HRT MIGUEL A Administration Levalbuterol HCl 0.63 mg 11/26/24 20:00 12/01/24 09:25 Levalbuterol Neb 1.25 Mg/3 Ml INHALATION 0.63 mg Q6HRT MIGUEL A Administration Lorazepam 2 mg 11/26/24 07:10 11/26/24 11:49 Lorazepam Inj (*Crx) 2 Mg/Ml Vial IV PUSH 2 mg Q2H PRN Administration CIWA > 15 Lorazepam 2 mg 11/26/24 07:10 11/27/24 21:05 Lorazepam Inj (*Crx) 2 Mg/Ml Vial IV PUSH 2 mg Q4H PRN Administration CIWA 8-15 Losartan Potassium 50 mg 11/26/24 09:00 11/30/24 12:55 Losartan Potassium 50 Mg Tablet PO 50 mg DAILY MIGUEL A Administration Metoprolol Succinate 100 mg 11/30/24 09:00 11/30/24 08:33 Metoprolol Succinate Ext Rel 100 Mg Tabcr PO 100 mg QAM MIGUEL A Administration Metoprolol Tartrate 2.5 mg 12/01/24 07:46 Metoprolol Tartrate Inj 5 Mg/5 Ml Vial IV PUSH Q4H PRN Tachyarrhythmias Mirtazapine 15 mg 11/30/24 21:00 11/30/24 21:36 Mirtazapine 15 Mg Tablet PO 15 mg HS MIGUEL A Administration Nicotine 1 patch 11/26/24 09:27 11/27/24 02:14 Nicotine (*Pbkc) 21 Mg Patch TRANSDERM 1 patch DAILY PRN Administration Nicotine withdrawal Ondansetron HCl 4 mg 11/25/24 22:08 11/28/24 08:38 Ondansetron Inj 4 Mg/2 Ml Vial IV PUSH 4 mg Q4H PRN Administration Nausea Rivaroxaban 20 mg 11/26/24 09:00 12/01/24 08:15 Rivaroxaban 20 Mg Tablet PO 20 mg DAILY MIGUEL A Administration Sertraline HCl 100 mg 11/26/24 09:00 12/01/24 08:15 Sertraline Hcl 50 Mg Tablet PO 100 mg DAILY MIGUEL A Administration Tamsulosin HCl 0.4 mg 11/26/24 09:20 12/01/24 08:15 Tamsulosin Hcl 0.4 Mg Capsule PO 0.4 mg QAM MIGUEL A Administration Thiamine HCl 100 mg 11/26/24 09:00 12/01/24 08:15 Thiamine Hcl 100 Mg Tablet PO 100 mg QAM MIGUEL A Administration Radiology Results: ITS Impressions Chest X-Ray 12/01/24 08:10 IMPRESSION: Emphysematous changes of the lungs. No acute cardiopulmonary pathology. Labs Labs: Laboratory Results - last 24 hr 11/30/24 11/30/24 12/01/24 04:23 16:22 08:13 POC Capillary Glucose 132 H 149 H Hemoglobin A1c 5.6 Lactic Acid Procalcitonin 12/01/24 12/01/24 10:33 11:36 POC Capillary Glucose 188 H Hemoglobin A1c Lactic Acid 1.3 Procalcitonin 0.1 Quality VTE Prophylaxis VTE prophylaxis: pharmacologic ordered
--- NOTE | 2024-12-01 16:24 | P.PNIM_ITS ---
Subjective Date/time seen: 12/01/24 16:24 Objective Data Vital Signs Vital Signs: Vital Signs - 24 hr 11/30/24 20:00 11/30/24 20:00 11/30/24 20:00 Temperature Pulse Rate 101 H 91 99 Respiratory Rate 18 21 H Blood Pressure 82/65 L Pulse Oximetry 94 95 Oxygen Delivery Room Air 11/30/24 20:03 11/30/24 20:12 11/30/24 20:12 Temperature Pulse Rate 101 H 85 Respiratory Rate 12 Blood Pressure 74/53 L Pulse Oximetry 94 Oxygen Delivery Room Air 11/30/24 20:21 11/30/24 21:00 11/30/24 22:00 Temperature Pulse Rate 101 H 90 86 Respiratory Rate 18 Blood Pressure 85/60 L 81/65 L Pulse Oximetry Oxygen Delivery 11/30/24 22:30 12/01/24 00:00 12/01/24 00:00 Temperature 36.6 C Pulse Rate 88 96 88 Respiratory Rate 17 Blood Pressure 76/56 L 83/62 L Pulse Oximetry 94 Oxygen Delivery 12/01/24 02:00 12/01/24 02:15 12/01/24 02:30 Temperature Pulse Rate 83 83 97 Respiratory Rate 15 12 18 Blood Pressure 90/67 L Pulse Oximetry 93 Oxygen Delivery 12/01/24 04:00 12/01/24 08:00 12/01/24 08:00 Temperature 36.6 C Pulse Rate 81 88 80 Respiratory Rate 16 Blood Pressure 85/62 L Pulse Oximetry 94 Oxygen Delivery 12/01/24 08:00 12/01/24 09:29 12/01/24 09:30 Temperature Pulse Rate 87 Respiratory Rate 16 Blood Pressure Pulse Oximetry 94 96 Oxygen Delivery Room Air Room Air 12/01/24 09:44 12/01/24 12:00 12/01/24 12:00 Temperature Pulse Rate 92 93 93 Respiratory Rate 22 H 16 Blood Pressure 89/61 L Pulse Oximetry 94 Oxygen Delivery 12/01/24 13:50 12/01/24 14:02 12/01/24 16:00 Temperature Pulse Rate 89 86 89 Respiratory Rate 20 20 Blood Pressure Pulse Oximetry Oxygen Delivery Intake/Output Intake/Output: Intake & Output 11/28/24 11/29/24 11/30/24 12/01/24 23:59 23:59 23:59 23:59 Intake Total 980 1050 1240 1600 Output Total 2325 1400 1000 2400 Balance -1345 -350 240 -800 Meds/Results Medications: Active Medications Generic Name Dose Route Start Last Admin Trade Name Freq PRN Reason Stop Dose Admin Acetaminophen 650 mg 11/25/24 22:08 11/29/24 09:47 Acetaminophen 325 Mg Tablet PO 650 mg Q4H PRN Administration Mild Pain (1-3) or Fever Amoxicillin/Clavulanate Potassium 1 tablet 11/29/24 09:00 12/01/24 08:14 Amoxicillin/Clavulanate K 875-125 Mg Tab PO 12/02/24 21:01 1 tablet Q12HR MIGUEL A Administration Buprenorphine/Naloxone 1 each 11/27/24 09:00 12/01/24 12:43 Buprenorphine/Naloxone (*Crx) 4 Mg/1 Mg Sl Film SUBLINGUAL 1 each QID MIGUEL A Administration Chlordiazepoxide HCl 50 mg 11/27/24 12:00 12/01/24 12:44 Chlordiazepoxide (*Crx) 25 Mg Capsule PO Not Given Q6HR MIGUEL A Dextrose 12.5 gm 11/30/24 00:34 Dextrose 50% 25 Gm/50 Ml Syringe IV PUSH PRN PRN Hypoglycemia Protocol Fluticasone/Umeclidinium/Vilanterol 1 puff 11/26/24 08:00 12/01/24 09:43 Fluticasone/Umeclidin/Vilanter 200-62.5-25 Mcg Ellipta INHALATION 1 puff DAILYRT MIGUEL A Administration Folic Acid 1 mg 11/26/24 09:00 12/01/24 08:15 Folic Acid 1 Mg Tablet PO 1 mg DAILY MIGUEL A Administration Furosemide 20 mg 12/01/24 09:00 Furosemide 20 Mg Tablet PO DAILY MIGUEL A Gabapentin 300 mg 11/26/24 09:00 12/01/24 08:15 Gabapentin 300 Mg Capsule PO 300 mg DAILY MIGUEL A Administration Glucagon 1 mg 11/30/24 00:34 Glucagon For Inj 1 Mg Vial IM PRN PRN Hypoglycemia Protocol Glucose 15 gm 11/30/24 00:34 Glucose Oral Gel 15 Gm Of Glucse In 37.5 Gm Tube PO PRN PRN Hypoglycemia Protocol Dextrose 1,000 mls @ 100 mls/hr 11/30/24 00:34 Dextrose 5% 1,000 Ml IVPB PRN PRN Hypoglycemia Protocol Albumin Human 100 mls @ 60 mls/hr 12/01/24 07:46 12/01/24 13:20 Albutein IVPB 12/02/24 01:39 Infused Q6HR [facility] Infusion Insulin Aspart 3 - 6 units 11/30/24 12:00 12/01/24 11:37 Insulin Aspart (*Bkc) 100 Units/Ml SUB-Q Not Given TIDWM [facility] Protocol Ipratropium [place] 0.5 mg 11/26/24 20:00 12/01/24 13:49 Ipratropium Br 0.02% Inh Soln 0.5 Mg/2.5 Ml Vial INHALATION 0.5 mg Q6HRT [facility] Administration Levalbuterol HCl 0.63 mg 11/26/24 20:00 12/01/24 13:49 Levalbuterol Neb 1.25 Mg/3 Ml INHALATION 0.63 mg Q6HRT [facility] Administration Lorazepam 2 mg 11/26/24 07:10 11/26/24 11:49 Lorazepam Inj (*Crx) 2 Mg/Ml Vial IV PUSH 2 mg Q2H PRN Administration CIWA > 15 Lorazepam 2 mg 11/26/24 07:10 11/27/24 21:05 Lorazepam Inj (*Crx) 2 Mg/Ml Vial IV PUSH 2 mg Q4H PRN Administration CIWA 8-15 Losartan Potassium 50 mg 11/26/24 09:00 11/30/24 12:55 Losartan Potassium 50 Mg Tablet PO 50 mg DAILY [facility] Administration Metoprolol Succinate 100 mg 11/30/24 09:00 11/30/24 08:33 Metoprolol Succinate Ext Rel 100 Mg Tabcr PO 100 mg QAM [facility] Administration Metoprolol Tartrate 2.5 mg 12/01/24 07:46 Metoprolol Tartrate Inj 5 Mg/5 Ml Vial IV PUSH Q4H PRN Tachyarrhythmias Mirtazapine 15 mg 11/30/24 21:00 11/30/24 21:36 Mirtazapine 15 Mg Tablet PO 15 mg HS [facility] Administration Nicotine 1 patch 11/26/24 09:27 11/27/24 02:14 Nicotine (*Pbkc) 21 Mg Patch TRANSDERM 1 patch DAILY PRN Administration Nicotine withdrawal Ondansetron HCl 4 mg 11/25/24 22:08 11/28/24 08:38 Ondansetron Inj 4 Mg/2 Ml Vial IV PUSH 4 mg Q4H PRN Administration Nausea Rivaroxaban 20 mg 11/26/24 09:00 12/01/24 08:15 Rivaroxaban 20 Mg Tablet PO 20 mg DAILY MIGUEL A Administration Sertraline HCl 100 mg 11/26/24 09:00 12/01/24 08:15 Sertraline Hcl 50 Mg Tablet PO 100 mg DAILY MIGUEL A Administration Tamsulosin HCl 0.4 mg 11/26/24 09:20 12/01/24 08:15 Tamsulosin Hcl 0.4 Mg Capsule PO 0.4 mg QAM MIGUEL A Administration Thiamine HCl 100 mg 11/26/24 09:00 12/01/24 08:15 Thiamine Hcl 100 Mg Tablet PO 100 mg QAM MIGUEL A Administration Radiology Results: ITS Impressions Chest X-Ray 12/01/24 08:10 IMPRESSION: Emphysematous changes of the lungs. No acute cardiopulmonary pathology. Labs Labs: Laboratory Results - last 24 hr 11/30/24 12/01/24 12/01/24 16:22 08:13 10:33 POC Capillary Glucose 132 H 149 H Lactic Acid 1.3 Procalcitonin 0.1 12/01/24 11:36 POC Capillary Glucose 188 H Lactic Acid Procalcitonin
[2024-12-01 16:37] LABS: Glucose Point of Care 112 mg/dl (65-105)
[2024-12-01] MEDS: NICOTINE (*PBKC) 21 MG PATCH 1 PATCH TRANSDERM (18:57)
[2024-12-01] MEDS: MIRTAZAPINE 15 MG TABLET PO (20:12)
[2024-12-01 20:42] LABS: Glucose Point of Care 129 mg/dl (65-105)
[2024-12-02] VITALS (13 sets, daily range): BP systolic 106–151; BP diastolic 65–87; PULSE 90–122; RESP 14–22; TEMP 36.3–36.6; O2SAT 95–98
[2024-12-02] MEDS: ALBUMIN HUMAN 25% 25 GM/100 ML 100 ML IVPB (00:06)
[2024-12-02] MEDS: chlordiazePOXIDE (*CRX) 25 MG CAPSULE 50 MG PO ×4 (00:06→17:49)
[2024-12-02] MEDS: LEVALBUTEROL NEB 1.25 MG/3 ML 0.63 MG INHALATION ×3 (02:49→13:39)
[2024-12-02] MEDS: IPRATROPIUM BR 0.02% INH SOLN 0.5 MG/2.5 ML VIAL INHALATION ×3 (02:49→13:39)
[2024-12-02] MEDS: ACETAMINOPHEN 325 MG TABLET 650 MG PO (03:34)
[2024-12-02 03:57] LABS: Basophils Percent Auto 0.5 % (0.2-1.2); Eosinophils Absolute Auto 0.4 K/mm3 (0-0.3); Eosinophils Percent Auto 4.2 % (0-4.4); Hematocrit 34.7 % (42.0-52.0); Hemoglobin 11.3 g/dL (14.0-18.0); Immature Granulocyte Absolute 0.03 K/mm3 (0.00-0.031); Immature Granulocyte Percent A 0.4 % (0-0.5); Lymphocytes Absolute Auto 1.83 K/mm3 (0.9-3.2); Lymphocytes Percent Auto 21.5 % (18.3-44.2); Mean Corpuscular HGB Conc 32.6 g/dl (32-36); Mean Corpuscular Hemoglobin 30.6 pg (26-34); Mean Platelet Volume 9.9 fl (7.4-10.4); Monocytes Absolute Auto 0.9 K/mm3 (0.1-0.6); Monocytes Percent Auto 10.9 % (2.6-8.5); Neutrophils Absolute Auto 5.3 K/mm3 (1.3-6.7); Neutrophils Percent Auto 62.5 % (45.5-73.1); Platelet Count Result 170 k/mm3 (150-375); Red Blood Count 3.69 M/mm3 (4.6-6.20); Red Cell Distribution Width 14.3 % (11.5-14.5); White Blood Count 8.5 K/mm3 (4.5-10.0)
[2024-12-02 04:12] LABS: Alanine Aminotransferase 15 U/L (6-50); Albumin Level 4.5 g/dL (3.5-5.1); Alkaline Phosphatase 47 U/L (38-126); Anion Gap 8 mmol/L (4-12); Aspartate Amino Transferase 19 U/L (17-59); Bilirubin,Total 0.4 mg/dL (0.2-1.3); Blood Urea Nitrogen 29 mg/dL (9-20); Calcium 9.5 mg/dL (8.4-10.2); Carbon Dioxide 29 mmol/L (22-30); Chloride 98 mmol/L (98-107); Estimated CRCL calculation 63 ml/min; Estimated Glomerular Filt Rate > 60; Glucose 114 mg/dL (65-110); Magnesium 2.1 mg/dL (1.6-2.3); Phosphorus 3.3 mg/dL (2.5-4.5); Potassium 4.7 mmol/L (3.4-5.0); Sodium 135 mmol/L (137-145)
--- NOTE | 2024-12-02 06:33 | PC.NURSE ---
This patient, Javad Gant, was transferred to [facility] on 12/02/24 at 0600. Personal belongings sent with patient. Appropriate documentation sent with patient.
[2024-12-02 07:09] LABS: Glucose Point of Care 85 mg/dl (65-105)
[2024-12-02] MEDS: FLUTICASONE/UMECLIDIN/VILANTER 200-62.5-25 MCG ELLIPTA 1 PUFF INHALATION (08:43)
--- NOTE | 2024-12-02 10:18 | P.PNCA_ITS ---
Progress Note: A&P Assessment and Plan (1) Atrial fibrillation with rapid ventricular response: Code(s): I48.91 - Unspecified atrial fibrillation Status: Acute Assessment and Plan: Resume metoprolol as his blood pressure is now stable. Continue anticoagulation with Xarelto. Hold losartan to give blood pressure room for rate control medications. (2) Hypertension: Code(s): I10 - Essential (primary) hypertension Status: Acute Assessment and Plan: As above, hold losartan. Continue metoprolol. Resume spironolactone when able. (3) Cardiomyopathy: Qualifiers: Cardiomyopathy type: unspecified Qualified Code(s): I42.9 - Cardiomyopathy, unspecified Code(s): I42.9 - Cardiomyopathy, unspecified Status: Acute Assessment and Plan: Improved. Add back spironolactone when able. Will reduce his furosemide at 20 mg daily. Plan 1. Atrial fibrillation with RVR. In setting of alcohol withdrawal, amphetamine use, sepsis. 2. Sepsis 3. Alcohol withdrawal 4. Cardiomyopathy. LVEF in the past in the 40s, last echo with LVEF 50-55%. 5. Hypertension 6. COPD 7. Alcohol abuse 8. Polysubstance abuse. UDS this admission positive for amphetamine. Subjective Date/time seen: 12/02/24 10:18 Interval history: Interval history: Reason for consult: Alcohol withdrawal, methamphetamine abuse, AFib RVR, status post Precedex Date of service 11/30/2024: Heart rate generally controlled. Patient feels better. No chest pain or shortness of breath. Date of service 12/02/2024: Metoprolol was held because of hypotension and he is now back in A fib with RVR. He does not feel any chest pain, shortness of breath. He does feel palpitations occasionally. Review of Systems Review of Systems: All systems reviewed & are unremarkable except as noted in HPI and below Cardiovascular: Cardiovascular: Denies chest pain and Denies palpitations Respiratory: Respiratory: Denies chest congestion Gastrointestinal: Gastrointestinal: Denies abdominal pain Endocrine: Endocrine: Denies palpitations Exam Const: General: no acute distress Eyes: General: appearance normal, both eyes and all related structures Sclera: sclerae normal Cardio: Rate: tachycardic Rhythm: abnormal rhythm irregularly irregular Heart sounds: Murmur heart sound present systolic Neuro: Speech: normal speech Psych: Mental Status: mental status grossly normal Affect: normal affect Objective Data Vital Signs Vital Signs: Vital Signs - 24 hr 12/01/24 12:00 12/01/24 12:00 12/01/24 13:50 Temperature Pulse Rate 93 93 89 Respiratory Rate 16 20 Blood Pressure 89/61 L Pulse Oximetry 94 Oxygen Delivery 12/01/24 14:02 12/01/24 16:00 12/01/24 16:00 Temperature 36.7 C Pulse Rate 86 89 101 H Respiratory Rate 20 18 Blood Pressure 116/77 Pulse Oximetry 97 Oxygen Delivery 12/01/24 20:00 12/01/24 20:00 12/02/24 00:00 Temperature Pulse Rate 87 94 Respiratory Rate 22 H Blood Pressure 151/87 H Pulse Oximetry 94 98 Oxygen Delivery Room Air 12/02/24 00:00 12/02/24 02:49 12/02/24 03:00 Temperature Pulse Rate 119 H 95 97 Respiratory Rate 19 19 Blood Pressure Pulse Oximetry Oxygen Delivery 12/02/24 04:00 12/02/24 07:56 12/02/24 09:11 Temperature 36.3 C L Pulse Rate 122 H 93 Respiratory Rate 20 Blood Pressure 115/65 Pulse Oximetry 98 Oxygen Delivery Room Air Intake/Output Intake/Output: Intake & Output 11/29/24 11/30/24 12/01/24 12/02/24 23:59 23:59 23:59 23:59 Intake Total 1050 1240 1900 800 Output Total 1400 1000 3100 825 Balance -350 240 -1200 -25 Meds/Results Medications: Active Medications Generic Name Dose Route Start Last Admin Trade Name Freq PRN Reason Stop Dose Admin Acetaminophen 650 mg 11/25/24 22:08 12/02/24 03:34 Acetaminophen 325 Mg Tablet PO 650 mg Q4H PRN Administration Mild Pain (1-3) or Fever Amoxicillin/Clavulanate Potassium 1 tablet 11/29/24 09:00 12/01/24 20:12 Amoxicillin/Clavulanate K 875-125 Mg Tab PO 12/02/24 21:01 1 tablet Q12HR MIGUEL A Administration Buprenorphine/Naloxone 1 each 11/27/24 09:00 12/01/24 20:12 Buprenorphine/Naloxone (*Crx) 4 Mg/1 Mg Sl Film SUBLINGUAL 1 each QID MIGUEL A Administration Chlordiazepoxide HCl 50 mg 11/27/24 12:00 12/02/24 05:46 Chlordiazepoxide (*Crx) 25 Mg Capsule PO 50 mg Q6HR MIGUEL A Administration Dextrose 12.5 gm 11/30/24 00:34 Dextrose 50% 25 Gm/50 Ml Syringe IV PUSH PRN PRN Hypoglycemia Protocol Fluticasone/Umeclidinium/Vilanterol 1 puff 11/26/24 08:00 12/01/24 09:43 Fluticasone/Umeclidin/Vilanter 200-62.5-25 Mcg Ellipta INHALATION 1 puff DAILYRT MIGUEL A Administration Folic Acid 1 mg 11/26/24 09:00 12/01/24 08:15 Folic Acid 1 Mg Tablet PO 1 mg DAILY MIGUEL A Administration Furosemide 20 mg 12/01/24 09:00 Furosemide 20 Mg Tablet PO DAILY MIGUEL A Gabapentin 300 mg 11/26/24 09:00 12/01/24 08:15 Gabapentin 300 Mg Capsule PO 300 mg DAILY MIGUEL A Administration Glucagon 1 mg 11/30/24 00:34 Glucagon For Inj 1 Mg Vial IM PRN PRN Hypoglycemia Protocol Glucose 15 gm 11/30/24 00:34 Glucose Oral Gel 15 Gm Of Glucse In 37.5 Gm Tube PO PRN PRN Hypoglycemia Protocol Dextrose 1,000 mls @ 100 mls/hr 11/30/24 00:34 Dextrose 5% 1,000 Ml IVPB PRN PRN Hypoglycemia Protocol Insulin Aspart 3 - 6 units 11/30/24 12:00 12/02/24 09:13 Insulin Aspart (*Bkc) 100 Units/Ml SUB-Q Not Given TIDWM [facility] Protocol Ipratropium [place] 0.5 mg 11/26/24 20:00 12/02/24 08:33 Ipratropium Br 0.02% Inh Soln 0.5 Mg/2.5 Ml Vial INHALATION 0.5 mg Q6HRT MIGUEL A Administration Levalbuterol HCl 0.63 mg 11/26/24 20:00 12/02/24 08:33 Levalbuterol Neb 1.25 Mg/3 Ml INHALATION 0.63 mg Q6HRT MIGUEL A Administration Lorazepam 2 mg 11/26/24 07:10 11/26/24 11:49 Lorazepam Inj (*Crx) 2 Mg/Ml Vial IV PUSH 2 mg Q2H PRN Administration CIWA > 15 Lorazepam 2 mg 11/26/24 07:10 11/27/24 21:05 Lorazepam Inj (*Crx) 2 Mg/Ml Vial IV PUSH 2 mg Q4H PRN Administration CIWA 8-15 Losartan Potassium 50 mg 11/26/24 09:00 11/30/24 12:55 Losartan Potassium 50 Mg Tablet PO 50 mg DAILY MIGUEL A Administration Metoprolol Succinate 100 mg 11/30/24 09:00 11/30/24 08:33 Metoprolol Succinate Ext Rel 100 Mg Tabcr PO 100 mg QAM MIGUEL A Administration Metoprolol Tartrate 2.5 mg 12/01/24 07:46 Metoprolol Tartrate Inj 5 Mg/5 Ml Vial IV PUSH Q4H PRN Tachyarrhythmias Mirtazapine 15 mg 11/30/24 21:00 12/01/24 20:12 Mirtazapine 15 Mg Tablet PO 15 mg HS MIGUEL A Administration Nicotine 1 patch 11/26/24 09:27 12/01/24 18:57 Nicotine (*Pbkc) 21 Mg Patch TRANSDERM 1 patch DAILY PRN Administration Nicotine withdrawal Ondansetron HCl 4 mg 11/25/24 22:08 11/28/24 08:38 Ondansetron Inj 4 Mg/2 Ml Vial IV PUSH 4 mg Q4H PRN Administration Nausea Rivaroxaban 20 mg 11/26/24 09:00 12/01/24 08:15 Rivaroxaban 20 Mg Tablet PO 20 mg DAILY MIGUEL A Administration Sertraline HCl 100 mg 11/26/24 09:00 12/01/24 08:15 Sertraline Hcl 50 Mg Tablet PO 100 mg DAILY MIGUEL A Administration Tamsulosin HCl 0.4 mg 11/26/24 09:20 12/01/24 08:15 Tamsulosin Hcl 0.4 Mg Capsule PO 0.4 mg QAM MIGUEL A Administration Thiamine HCl 100 mg 11/26/24 09:00 12/01/24 08:15 Thiamine Hcl 100 Mg Tablet PO 100 mg QAM MIGUEL A Administration Radiology Results: ITS Impressions Chest X-Ray 12/01/24 08:10 IMPRESSION: Emphysematous changes of the lungs. No acute cardiopulmonary pathology. Labs Labs: Laboratory Results - last 24 hr 12/01/24 12/01/24 12/01/24 10:33 11:36 16:35 WBC RBC Hgb Hct MCV MCH MCHC RDW Plt Count MPV Immature Gran % (Auto) Neut % (Auto) Lymph % (Auto) [place] % (Auto) Eos % (Auto) Baso % (Auto) Lymph # (Auto) [place] # (Auto) Eos # (Auto) Baso # (Auto) Abs Immat Gran (auto) Absolute Neuts (auto) Absolute Nucleated RBC Nucleated RBC % Sodium Potassium Chloride Carbon Dioxide Anion Gap BUN Creatinine Estim Creat Clear Calc Estimated GFR Glucose POC Capillary Glucose 188 H 112 H Lactic Acid 1.3 Calcium Phosphorus Magnesium Total Bilirubin AST ALT Alkaline Phosphatase Total Protein Albumin Procalcitonin 0.1 12/01/24 12/02/24 12/02/24 20:39 03:29 07:07 WBC 8.5 RBC 3.69 L Hgb 11.3 L Hct 34.7 L MCV 94.0 MCH 30.6 MCHC 32.6 RDW 14.3 Plt Count 170 MPV 9.9 Immature Gran % (Auto) 0.4 Neut % (Auto) 62.5 Lymph % (Auto) 21.5 [place] % (Auto) 10.9 H Eos % (Auto) 4.2 Baso % (Auto) 0.5 Lymph # (Auto) 1.83 [place] # (Auto) 0.9 H Eos # (Auto) 0.4 H Baso # (Auto) 0.0 Abs Immat Gran (auto) 0.03 Absolute Neuts (auto) 5.3 Absolute Nucleated RBC 0.000 Nucleated RBC % 0.0 Sodium 135 L Potassium 4.7 Chloride 98 Carbon Dioxide 29 Anion Gap 8 BUN 29 H D Creatinine 0.85 Estim Creat Clear Calc 63 Estimated GFR > 60 Glucose 114 H POC Capillary Glucose 129 H 85 Lactic Acid 1.0 Calcium 9.5 Phosphorus 3.3 Magnesium 2.1 Total Bilirubin 0.4 AST 19 ALT 15 Alkaline Phosphatase 47 Total Protein 7.0 Albumin 4.5 Procalcitonin Quality VTE Prophylaxis VTE prophylaxis: pharmacologic ordered
[2024-12-02] MEDS: GABAPENTIN 300 MG CAPSULE PO (10:34)
[2024-12-02] MEDS: AMOXICILLIN/CLAVULANATE K 875-125 MG TAB 1 TABLET PO (10:34)
[2024-12-02] MEDS: SERTRALINE HCL 50 MG TABLET 100 MG PO (10:34)
[2024-12-02] MEDS: FOLIC ACID 1 MG TABLET PO (10:34)
[2024-12-02] MEDS: THIAMINE HCL 100 MG TABLET PO (10:35)
[2024-12-02] MEDS: METOPROLOL TARTRATE 25 MG TABLET PO (10:35)
[2024-12-02] MEDS: TAMSULOSIN HCL 0.4 MG CAPSULE PO (10:35)
[2024-12-02] MEDS: RIVAROXABAN 20 MG TABLET PO (10:35)
[2024-12-02] MEDS: BUPRENORPHINE/NALOXONE (*CRX) 4 MG/1 MG SL FILM 1 EACH SUBLINGUAL (10:37)
[2024-12-02 11:40] LABS: Glucose Point of Care 149 mg/dl (65-105)
--- NOTE | 2024-12-02 14:26 | P.PNIM_ITS ---
Progress Note: A&P Assessment and Plan (1) Atrial fibrillation with rapid ventricular response: Code(s): I48.91 - Unspecified atrial fibrillation Status: Acute (2) Sepsis: Qualifiers: Sepsis acute organ dysfunction status: without acute organ dysfunction Sepsis type: sepsis due to unspecified organism Qualified Code(s): A41.9 - Sepsis, unspecified organism Code(s): A41.9 - Sepsis, unspecified organism Status: Acute (3) Opiate overdose: Qualifiers: Encounter type: initial encounter Injury intent: accidental or unintentional Qualified Code(s): T40.601A - Poisoning by unspecified narcotics, accidental (unintentional), initial encounter Code(s): T40.601A - Poisoning by unspecified narcotics, accidental (unintentional), initial encounter Status: Acute (4) Acute dehydration: Code(s): E86.0 - Dehydration Status: Acute (5) Alcohol abuse: Code(s): F10.10 - Alcohol abuse, uncomplicated Status: Acute (6) Lactic acidosis: Code(s): E87.20 - Acidosis, unspecified Status: Acute (7) Cardiomyopathy: Qualifiers: Cardiomyopathy type: unspecified Qualified Code(s): I42.9 - Cardiomyopathy, unspecified Code(s): I42.9 - Cardiomyopathy, unspecified Status: Acute (8) Tobacco abuse disorder: Code(s): Z72.0 - Tobacco use Status: Acute (9) BPH with urinary obstruction: Code(s): N40.1 - Benign prostatic hyperplasia with lower urinary tract symptoms; N13.8 - Other obstructive and reflux uropathy Status: Acute (10) Opiate withdrawal: Code(s): F11.93 - Opioid use, unspecified with withdrawal Status: Acute (11) Alcohol withdrawal: Code(s): F10.939 - Alcohol use, unspecified with withdrawal, unspecified Status: Acute (12) Atrial fibrillation: Code(s): I48.91 - Unspecified atrial fibrillation Status: Chronic Plan 64-year-old male with a past medical history of polysubstance abuse, alcohol abuse, tobacco dependence cardiomyopathy, atrial fibrillation and COPD who presented to the ER from home via EMS due to being found unresponsive. Patient has history of fentanyl abuse either snorting or IV injection. he received 6 mg of IV Narcan with return of mentation and breathing. He was noted to be tachycardic with heart rates in the 180s in the field. Severe Alcohol withdrawal and fentanyl withdrawal Patient was initially admitted to IMU with Ativan p.r.n. CIWA protocol however patient continued to be agitated and diaphoretic. Patient was then moved to ICU and was placed on Precedex drip. Precedex drip has been off since 11/28/2024. Continue thiamine folic acid Sepsis Patient presented with leukocytosis lactic acidosis tachypnea. UA reflective of UTI. Urine culture Proteus mirabilis pansensitive. Treated with ceftriaxone and then switched to Augmentin. Complicated UTI Patient has BPH UA showed pyuria Antibiotics see above Urine culture with Proteus mirabilis pansensitive blood culture negative to date Lactic acidosis resolved with IV hydration AFib RVR Uncontrolled heart rate Likely secondary to alcohol withdrawal, opioid withdrawal, dehydration, infection Started Cardizem drip. Cardiology consulted Continue Xarelto p.o. Continue metoprolol p.o. Off Cardizem drip since 11/27/2024 COPD exacerbation Continue bronchodilators BPH: Patient had Lau catheter during hospital stay now removed and voiding well. Dehydration ELEVATED BUN CREATININE RATIO 41/0.68 Started lactated Ringer IV 100 mL/hour Corrected Hypertension losartan metoprolol per home DVT prophylaxis: Xarelto Code status full code Subjective Date/time seen: 12/02/24 14:26 Interval history: Patient moved out of the ICU today. Cardiology following. Went into AFib with RVR earlier today. Now controlled on metoprolol. History of AFib. Feels well. No signs of withdrawal currently. Used to be on Suboxone and plans to be back on it. Review of Systems Review of Systems: All systems reviewed & are unremarkable except as noted in HPI and below Exam Narrative: General: Disheveled and malnourished individual currently in no acute distress HEENT:? Pupils equal and reactive, Neck:? Supple Respiratory:? Clear to auscultation bilateral, no wheezing, adequate air entry Cardiac:? Irregularly irregular, rate controlled Abdomen:? Soft, nontender, nondistended, normoactive bowel sounds Extremities:? No edema, palpable pedal pulses Neuro:? Patient is awake, alert, oriented x3, is able to answer questions appropriately, follows simple commands Skin:? Scabs on lower extremities, bruising on upper extremities, Psych:? Normal mentation and affect Objective Data Vital Signs Vital Signs: Vital Signs - 24 hr 12/01/24 16:00 12/01/24 16:00 12/01/24 20:00 Temperature 98.0 F Pulse Rate 89 101 H Respiratory Rate 18 Blood Pressure 116/77 Pulse Oximetry 97 94 Oxygen Delivery Room Air 12/01/24 20:00 12/02/24 00:00 12/02/24 00:00 Temperature Pulse Rate 87 94 119 H Respiratory Rate 22 H Blood Pressure 151/87 H Pulse Oximetry 98 Oxygen Delivery 12/02/24 02:49 12/02/24 03:00 12/02/24 04:00 Temperature Pulse Rate 95 97 122 H Respiratory Rate 19 19 Blood Pressure Pulse Oximetry Oxygen Delivery 12/02/24 07:56 12/02/24 08:00 12/02/24 08:00 Temperature 97.3 F L Pulse Rate 93 117 H Respiratory Rate 20 Blood Pressure 115/65 Pulse Oximetry 98 Oxygen Delivery Room Air 12/02/24 08:36 12/02/24 08:49 12/02/24 09:11 Temperature Pulse Rate 97 95 Respiratory Rate 18 18 Blood Pressure Pulse Oximetry Oxygen Delivery Room Air 12/02/24 10:35 12/02/24 10:56 12/02/24 12:00 Temperature Pulse Rate 117 H 90 Respiratory Rate Blood Pressure Pulse Oximetry Oxygen Delivery Room Air 12/02/24 13:39 12/02/24 13:50 Temperature Pulse Rate 90 94 Respiratory Rate 18 18 Blood Pressure Pulse Oximetry Oxygen Delivery Intake/Output Intake/Output: Intake & Output 11/29/24 11/30/24 12/01/24 12/02/24 23:59 23:59 23:59 23:59 Intake Total 1050 1240 1900 1040 Output Total 1400 1000 3100 1325 Balance -350 240 1200 -245 Meds/Results Medications: Active Medications Generic Name Dose Route Start Last Admin Trade Name Freq PRN Reason Stop Dose Admin Acetaminophen 650 mg 11/25/24 22:08 12/02/24 03:34 Acetaminophen 325 Mg Tablet PO 650 mg Q4H PRN Administration Mild Pain (1-3) or Fever Amoxicillin/Clavulanate Potassium 1 tablet 11/29/24 09:00 12/02/24 10:34 Amoxicillin/Clavulanate K 875-125 Mg Tab PO 12/02/24 21:01 1 tablet Q12HR MIGUEL A Administration Buprenorphine/Naloxone 1 each 11/27/24 09:00 12/02/24 10:37 Buprenorphine/Naloxone (*Crx) 4 Mg/1 Mg Sl Film SUBLINGUAL 1 each QID MIGUEL A Administration Chlordiazepoxide HCl 50 mg 11/27/24 12:00 12/02/24 12:01 Chlordiazepoxide (*Crx) 25 Mg Capsule PO 50 mg Q6HR MIGUEL A Administration Dextrose 12.5 gm 11/30/24 00:34 Dextrose 50% 25 Gm/50 Ml Syringe IV PUSH PRN PRN Hypoglycemia Protocol Fluticasone/Umeclidinium/Vilanterol 1 puff 11/26/24 08:00 12/02/24 08:43 Fluticasone/Umeclidin/Vilanter 200-62.5-25 Mcg Ellipta INHALATION 1 puff DAILYRT MIGUEL A Administration Folic Acid 1 mg 11/26/24 09:00 12/02/24 10:34 Folic Acid 1 Mg Tablet PO 1 mg DAILY MIGUEL A Administration Furosemide 20 mg 12/01/24 09:00 Furosemide 20 Mg Tablet PO DAILY MIGUEL A Gabapentin 300 mg 11/26/24 09:00 12/02/24 10:34 Gabapentin 300 Mg Capsule PO 300 mg DAILY MIGUEL A Administration Glucagon 1 mg 11/30/24 00:34 Glucagon For Inj 1 Mg Vial IM PRN PRN Hypoglycemia Protocol Glucose 15 gm 11/30/24 00:34 Glucose Oral Gel 15 Gm Of Glucse In 37.5 Gm Tube PO PRN PRN Hypoglycemia Protocol Dextrose 1,000 mls @ 100 mls/hr 11/30/24 00:34 Dextrose 5% 1,000 Ml IVPB PRN PRN Hypoglycemia Protocol Insulin Aspart 3 - 6 units 11/30/24 12:00 12/02/24 12:02 Insulin Aspart (*Bkc) 100 Units/Ml SUB-Q Not Given TIDWM MIGUEL A Protocol Ipratropium [place] 0.5 mg 11/26/24 20:00 12/02/24 13:39 Ipratropium Br 0.02% Inh Soln 0.5 Mg/2.5 Ml Vial INHALATION 0.5 mg Q6HRT MIGUEL A Administration Levalbuterol HCl 0.63 mg 11/26/24 20:00 12/02/24 13:39 Levalbuterol Neb 1.25 Mg/3 Ml INHALATION 0.63 mg Q6HRT MIGUEL A Administration Lorazepam 2 mg 11/26/24 07:10 11/26/24 11:49 Lorazepam Inj (*Crx) 2 Mg/Ml Vial IV PUSH 2 mg Q2H PRN Administration CIWA > 15 Lorazepam 2 mg 11/26/24 07:10 11/27/24 21:05 Lorazepam Inj (*Crx) 2 Mg/Ml Vial IV PUSH 2 mg Q4H PRN Administration CIWA 8-15 Losartan Potassium 50 mg 11/26/24 09:00 11/30/24 12:55 Losartan Potassium 50 Mg Tablet PO 50 mg DAILY MIGUEL A Administration Metoprolol Succinate 100 mg 11/30/24 09:00 11/30/24 08:33 Metoprolol Succinate Ext Rel 100 Mg Tabcr PO 100 mg QAM MIGUEL A Administration Metoprolol Tartrate 2.5 mg 12/01/24 07:46 Metoprolol Tartrate Inj 5 Mg/5 Ml Vial IV PUSH Q4H PRN Tachyarrhythmias Metoprolol Tartrate 25 mg 12/02/24 10:20 12/02/24 10:35 Metoprolol Tartrate 25 Mg Tablet PO 25 mg Q12HR MIGUEL A Administration Mirtazapine 15 mg 11/30/24 21:00 12/01/24 20:12 Mirtazapine 15 Mg Tablet PO 15 mg HS MIGUEL A Administration Nicotine 1 patch 11/26/24 09:27 12/01/24 18:57 Nicotine (*Pbkc) 21 Mg Patch TRANSDERM 1 patch DAILY PRN Administration Nicotine withdrawal Ondansetron HCl 4 mg 11/25/24 22:08 11/28/24 08:38 Ondansetron Inj 4 Mg/2 Ml Vial IV PUSH 4 mg Q4H PRN Administration Nausea Rivaroxaban 20 mg 11/26/24 09:00 12/02/24 10:35 Rivaroxaban 20 Mg Tablet PO 20 mg DAILY MIGUEL A Administration Sertraline HCl 100 mg 11/26/24 09:00 12/02/24 10:34 Sertraline Hcl 50 Mg Tablet PO 100 mg DAILY MIGUEL A Administration Tamsulosin HCl 0.4 mg 11/26/24 09:20 12/02/24 10:35 Tamsulosin Hcl 0.4 Mg Capsule PO 0.4 mg QAM MIGUEL A Administration Thiamine HCl 100 mg 11/26/24 09:00 12/02/24 10:35 Thiamine Hcl 100 Mg Tablet PO 100 mg QAM MIGUEL A Administration Radiology Results: ITS Impressions Chest X-Ray 12/01/24 08:10 IMPRESSION: Emphysematous changes of the lungs. No acute cardiopulmonary pathology. Labs Labs: Laboratory Results - last 24 hr 12/01/24 12/01/24 12/02/24 16:35 20:39 03:29 WBC 8.5 RBC 3.69 L Hgb 11.3 L Hct 34.7 L MCV 94.0 MCH 30.6 MCHC 32.6 RDW 14.3 Plt Count 170 MPV 9.9 Immature Gran % (Auto) 0.4 Neut % (Auto) 62.5 Lymph % (Auto) 21.5 [place] % (Auto) 10.9 H Eos % (Auto) 4.2 Baso % (Auto) 0.5 Lymph # (Auto) 1.83 [place] # (Auto) 0.9 H Eos # (Auto) 0.4 H Baso # (Auto) 0.0 Abs Immat Gran (auto) 0.03 Absolute Neuts (auto) 5.3 Absolute Nucleated RBC 0.000 Nucleated RBC % 0.0 Sodium 135 L Potassium 4.7 Chloride 98 Carbon Dioxide 29 Anion Gap 8 BUN 29 H D Creatinine 0.85 Estim Creat Clear Calc 63 Estimated GFR > 60 Glucose 114 H POC Capillary Glucose 112 H 129 H Lactic Acid 1.0 Calcium 9.5 Phosphorus 3.3 Magnesium 2.1 Total Bilirubin 0.4 AST 19 ALT 15 Alkaline Phosphatase 47 Total Protein 7.0 Albumin 4.5 12/02/24 12/02/24 07:07 11:08 WBC RBC Hgb Hct MCV MCH MCHC RDW Plt Count MPV Immature Gran % (Auto) Neut % (Auto) Lymph % (Auto) [place] % (Auto) Eos % (Auto) Baso % (Auto) Lymph # (Auto) [place] # (Auto) Eos # (Auto) Baso # (Auto) Abs Immat Gran (auto) Absolute Neuts (auto) Absolute Nucleated RBC Nucleated RBC % Sodium Potassium Chloride Carbon Dioxide Anion Gap BUN Creatinine Estim Creat Clear Calc Estimated GFR Glucose POC Capillary Glucose 85 149 H Lactic Acid Calcium Phosphorus Magnesium Total Bilirubin AST ALT Alkaline Phosphatase Total Protein Albumin
[2024-12-02 16:13] LABS: Glucose Point of Care 112 mg/dl (65-105)
--- NOTE | 2024-12-02 16:51 | PM.DS ---
DS: Admitting Diagnosis Discharge Date 12/02/2024 Admitting Diagnosis Alcohol withdrawal DS: Discharge Diagnosis Discharge Diagnosis (1) Atrial fibrillation with rapid ventricular response: Code(s): I48.91 - Unspecified atrial fibrillation Status: Acute (2) Sepsis: Qualifiers: Sepsis type: sepsis due to unspecified organism Sepsis acute organ dysfunction status: without acute organ dysfunction Qualified Code(s): A41.9 - Sepsis, unspecified organism Code(s): A41.9 - Sepsis, unspecified organism Status: Acute (3) Opiate overdose: Qualifiers: Encounter type: initial encounter Injury intent: accidental or unintentional Qualified Code(s): T40.601A - Poisoning by unspecified narcotics, accidental (unintentional), initial encounter Code(s): T40.601A - Poisoning by unspecified narcotics, accidental (unintentional), initial encounter Status: Acute (4) Acute dehydration: Code(s): E86.0 - Dehydration Status: Acute (5) Alcohol abuse: Code(s): F10.10 - Alcohol abuse, uncomplicated Status: Acute (6) Lactic acidosis: Code(s): E87.20 - Acidosis, unspecified Status: Acute (7) Cardiomyopathy: Qualifiers: Cardiomyopathy type: unspecified Qualified Code(s): I42.9 - Cardiomyopathy, unspecified Code(s): I42.9 - Cardiomyopathy, unspecified Status: Acute (8) Tobacco abuse disorder: Code(s): Z72.0 - Tobacco use Status: Acute (9) BPH with urinary obstruction: Code(s): N40.1 - Benign prostatic hyperplasia with lower urinary tract symptoms; N13.8 - Other obstructive and reflux uropathy Status: Acute (10) Opiate withdrawal: Code(s): F11.93 - Opioid use, unspecified with withdrawal Status: Acute (11) Alcohol withdrawal: Code(s): F10.939 - Alcohol use, unspecified with withdrawal, unspecified Status: Acute (12) Atrial fibrillation: Code(s): I48.91 - Unspecified atrial fibrillation Status: Chronic DS: Summary Hospital Course Hospital Course: 64-year-old male with a past medical history of polysubstance abuse, alcohol abuse, tobacco dependence cardiomyopathy, atrial fibrillation and COPD who presented to the ER from home via EMS due to being found unresponsive. Patient has history of fentanyl abuse either snorting or IV injection. he received 6 mg of IV Narcan with return of mentation and breathing. He was noted to be tachycardic with heart rates in the 180s in the field. Severe Alcohol withdrawal and fentanyl withdrawal Patient was initially admitted to IMU with Ativan p.r.n. CIWA protocol however patient continued to be agitated and diaphoretic. Patient was then moved to ICU and was placed on Precedex drip. Precedex drip has been off since 11/28/2024. Continue thiamine folic acid On scheduled Librium will be tapered at discharge Sepsis Patient presented with leukocytosis lactic acidosis tachypnea. UA reflective of UTI. Urine culture Proteus mirabilis pansensitive. Treated with ceftriaxone and then switched to Augmentin. Completed course of antibiotic during the hospital stay Complicated UTI Patient has BPH UA showed pyuria Antibiotics see above Urine culture with Proteus mirabilis pansensitive blood culture negative to date Lactic acidosis resolved with IV hydration AFib RVR Uncontrolled heart rate Likely secondary to alcohol withdrawal, opioid withdrawal, dehydration, infection Started Cardizem drip. Cardiology consulted Continue Xarelto p.o. Continue metoprolol p.o. was switched to metoprolol tartrate 25 b.i.d. due to hypotension. Off Cardizem drip since 11/27/2024 COPD exacerbation Continue bronchodilators BPH: Patient had Lau catheter during hospital stay now removed and voiding well. Dehydration ELEVATED BUN CREATININE RATIO 41/0.68 Started lactated Ringer IV 100 mL/hour Corrected Hypertension losartan metoprolol per home however on hold due to hypotension during the hospital. Only on metoprolol tartrate at discharge along with spironolactone. DVT prophylaxis: Xarelto Code status full code Time Spent with Patient Time attestation: Total time spent providing and/or coordinating discharge services: 40 minutes Exam Narrative: General: Disheveled and malnourished individual currently in no acute distress HEENT:? Pupils equal and reactive, Neck:? Supple Respiratory:? Clear to auscultation bilateral, no wheezing, adequate air entry Cardiac:? Irregularly irregular, rate controlled Abdomen:? Soft, nontender, nondistended, normoactive bowel sounds Extremities:? No edema, palpable pedal pulses Neuro:? Patient is awake, alert, oriented x3, is able to answer questions appropriately, follows simple commands Skin:? Scabs on lower extremities, bruising on upper extremities, Psych:? Normal mentation and affect DS: Data Data Completed and Pending Labs on day of discharge: Labs from last 24 hours 12/02/24 12/02/24 12/02/24 16:11 11:08 07:07 WBC RBC Hgb Hct MCV MCH MCHC RDW Plt Count MPV Immature Gran % (Auto) Neut % (Auto) Lymph % (Auto) Collier % (Auto) Eos % (Auto) Baso % (Auto) Lymph # (Auto) Collier # (Auto) Eos # (Auto) Baso # (Auto) Abs Immat Gran (auto) Absolute Neuts (auto) Absolute Nucleated RBC Nucleated RBC % Sodium Potassium Chloride Carbon Dioxide Anion Gap BUN Creatinine Estim Creat Clear Calc Estimated GFR Glucose POC Capillary Glucose 112 H 149 H 85 Lactic Acid Calcium Phosphorus Magnesium Total Bilirubin AST ALT Alkaline Phosphatase Total Protein Albumin 12/02/24 12/01/24 03:29 20:39 WBC 8.5 RBC 3.69 L Hgb 11.3 L Hct 34.7 L MCV 94.0 MCH 30.6 MCHC 32.6 RDW 14.3 Plt Count 170 MPV 9.9 Immature Gran % (Auto) 0.4 Neut % (Auto) 62.5 Lymph % (Auto) 21.5 Collier % (Auto) 10.9 H Eos % (Auto) 4.2 Baso % (Auto) 0.5 Lymph # (Auto) 1.83 Collier # (Auto) 0.9 H Eos # (Auto) 0.4 H Baso # (Auto) 0.0 Abs Immat Gran (auto) 0.03 Absolute Neuts (auto) 5.3 Absolute Nucleated RBC 0.000 Nucleated RBC % 0.0 Sodium 135 L Potassium 4.7 Chloride 98 Carbon Dioxide 29 Anion Gap 8 BUN 29 H D Creatinine 0.85 Estim Creat Clear Calc 63 Estimated GFR > 60 Glucose 114 H POC Capillary Glucose 129 H Lactic Acid 1.0 Calcium 9.5 Phosphorus 3.3 Magnesium 2.1 Total Bilirubin 0.4 AST 19 ALT 15 Alkaline Phosphatase 47 Total Protein 7.0 Albumin 4.5 Imaging Radiologist's impression: ITS Impressions Chest X-Ray 11/25/24 19:08 IMPRESSION: Severe centrilobular emphysema without focal infiltrate or effusion. Chest X-Ray 12/01/24 08:10 IMPRESSION: Emphysematous changes of the lungs. No acute cardiopulmonary pathology. Discharge Plan Discharge Attending physician on discharge: Jack Barahona Consulting providers: Flip Lilly; Alicia Mena Discharging Clinician: Jack Barahona Anticipated Discharge Date/Time: 12/02/24 16:53 Patient Disposition: Home, Self-Care Activity: as tolerated Diet: heart healthy Discharge Instructions: Most to be blood pressure medications are hold. These need to be slowly resumed as an outpatient basis. Follow-up with PCP in 1 week call for appointment. Follow up with Cardiology as an outpatient basis for your AFib and cardiomyopathy Patient Instructions: Antibiotic Form, Rivaroxaban (By mouth), Heart Failure (DC), A-fib (Atrial Fibrillation) (DC), Opioid Withdrawal (DC), Opioid Safety (DC) Patient Language: Maori Stand Alone Forms: General Discharge Information Follow-up/Referrals: Lizzie,MD Rios [Primary Care Provider] - 1 Week Alicia Mena MD [Physician] - 4 Weeks Discharge Medications: New chlordiazepoxide HCl 25 mg capsule See Rx Instructions .ROUTE .COMPLEX PRN (Reason: anxiety) Qty: 6 0RF Rx Instructions: 25 mg orally three times daily x 1 day then 25 mg twice daily x 1 day then once daily x 1 day metoprolol tartrate 25 mg Tablet 25 mg PO Q12HR Qty: 60 0RF tamsulosin 0.4 mg Capsule 0.4 mg PO QAM Qty: 30 0RF Continued albuterol sulfate 90 mcg/actuation HFA aerosol inhaler 2 puff INHALATION DAILY PRN (Reason: shortness of breath or wheezing) buprenorphine-naloxone 8-2 mg tablet, sublingual 1 tablet SUBLINGUAL DAILY Xarelto 20 mg tablet 20 mg PO DAILY Anoro Ellipta 62.5-25 mcg/actuation blister with device 1 inh INHALATION DAILY naloxone [Narcan] 4 mg/actuation spray,non-aerosol 4 mg intranasal Q2M PRN (Reason: opioid overdose) Qty: 2 0RF Rx Instructions: spray 1 dose into ONE nostril; alternate nostrils w each dose until help arrives thiamine HCl (vitamin B1) [Vitamin B-1] 100 mg Tablet 100 mg PO QAM Qty: 30 0RF folic acid 1 mg Tablet 1 mg PO DAILY Qty: 30 0RF Trelegy Ellipta 200-62.5-25 mcg blister with device 1 inh INHALATION Q24H mirtazapine 15 mg tablet 15 mg PO DAILY sertraline 100 mg tablet 100 mg PO DAILY spironolactone 25 mg tablet 12.5 mg PO DAILY gabapentin 300 mg capsule 300 mg PO DAILY Discontinued losartan 50 mg tablet 50 mg PO DAILY furosemide 40 mg Tablet 40 mg PO DAILY Qty: 30 1RF metoprolol succinate 50 mg Tablet Extended Release 24 Hr 50 mg PO QAM Qty: 30 1RF digoxin 125 mcg (0.125 mg) tablet 0.125 mg PO DAILY Date of admission: 11/27/24 12:39 Primary Care Provider: LizzieRios Admitting Provider: Ginny Zepeda Attending physician on admission: Ginny Zepeda Condition: Stable Hospitalist MIPS Heart Failure (Exclusion) Patient has history of Heart Transplant or Left Ventricular Assistive Device?: No IF YES, STOP HERE Heart Failure (Qualifier) Patient has current or prior documentation of LVEF less than or equal to 40%, or mod/servere depressed LVSF?: No IF NO, STOP HERE
== END 2024-12-02 17:57 | disposition home or self-care (01) | DRG 812 ==
LOC: ANHED 22:47 → ANHIMU 11-26 00:52 → ANHICU 11-26 13:54 → ANHIMU 12-02 16:53 → ANHICU 12-05 09:31 → ANHIMU 12-05 09:31
PROVIDERS: Family Medicine; Hospitalist; Internal Medicine; Admitting Provider Internal Medicine; Emergency Provider Student in an Organized Health Care Education/Training Program; PCP Hospitalist; Visit Provider Internal Medicine
DX: T40.411A Poisoning by fentanyl or fentanyl analogs, accidental (unintentional), initial encounter (principal); A41.9 Sepsis, unspecified organism; N39.0 Urinary tract infection, site not specified; F10.139 Alcohol abuse with withdrawal, unspecified; F11.13 Opioid abuse with withdrawal; F19.10 Other psychoactive substance abuse, uncomplicated; F10.10 Alcohol abuse, uncomplicated; I48.20 Chronic atrial fibrillation, unspecified; R44.1 Visual hallucinations; J44.1 Chronic obstructive pulmonary disease with (acute) exacerbation; B96.4 Proteus (mirabilis) (morganii) as the cause of diseases classified elsewhere; I42.8 Other cardiomyopathies; F17.210 Nicotine dependence, cigarettes, uncomplicated; E86.0 Dehydration; E87.21 Acute metabolic acidosis; N40.1 Benign prostatic hyperplasia with lower urinary tract symptoms; N13.8 Other obstructive and reflux uropathy; R33.8 Other retention of urine; I42.9 Cardiomyopathy, unspecified; Z91.148 Patient's other noncompliance with medication regimen for other reason; E44.0 Moderate protein-calorie malnutrition; Z68.1 Body mass index [BMI] 19.9 or less, adult
CPT/HCPCS: 36415; 71045; 80048; 80053; 80143; 80179; 80307; 81001; 82077; 82948; 83036; 83605; 83735; 84100; 84145; 84443; 85025; 85610; 85730; 87040; 87086; 87186; 87641; 93005; 94640; 96361; 96365; 96366; 96368; 96374; 96375; 96376; 97161; 97165; 99285; A9270; G0378; G0379; J0696; J1815; J2060; J2250; J2405; J3010; J7030; J7040; J7070; J7120; P9047

== ENCOUNTER 2025-07-15 20:52 | Inpatient (IN) | payer MEDICARE, MEDICAID, SELFPAY ==
[2025-07-15] VITALS (27 sets, daily range): BP systolic 133–165; BP diastolic 90–120; PULSE 108–165; RESP 14–33; TEMP 35.8–36.6; O2SAT 97–100
--- NOTE | ~2025-07-15 | XR_ITS ---
EXAMINATION: XR chest 1V portable 07/20/2025 10:22 INDICATION: Respiratory distress PROCEDURE: AP portable chest COMPARISON: Comparison to multiple prior studies sequentially, with oldest reviewed study dated 07/17/2025. FINDINGS: There is a left-sided chest tube, position unchanged. No pneumothorax identified. There is subcutaneous gas left lateral chest wall. The lungs are hyperinflated which is consistent with, but not diagnostic of chronic obstructive pulmonary disease. Left IJ central line tip in the SVC. No focal air space disease, pulmonary edema, pleural effusion or suspected pneumothorax. IMPRESSION: 1: NO ACUTE CARDIOPULMONARY DISEASE. Reviewed, dictated and finalized at location O. ICIAN PRESIDENT
--- NOTE | ~2025-07-15 | XR_ITS ---
EXAMINATION: XR chest 1V portable COMPARISON: Comparison 07/18/2025. HISTORY: Resp Failure FINDINGS: Mild pulmonary venous congestion. Scattered small infiltrates. No pneumothorax. Heart is normal size. Mediastinal and hilar contours are within normal limits. Bony thorax no acute abnormality. Miscellaneous: ETT 3 cm above the ang[place], nasogastric tube in the stomach, left central line in the SVC. Impression: No significant change Reviewed, dictated and finalized at location P. ROOM HELPER Impression: No significant change
--- NOTE | ~2025-07-15 | CT_ITS ---
EXAMINATION: CTA chest PE protocol DATE: 07/15/2025 23:21 INDICATION: Respiratory distress. TECHNIQUE: Computed tomography angiography (CTA) of the chest was performed with 100 mL Omnipaque-350 intravenous contrast timed to evaluate the pulmonary arteries. Coronal maximum intensity projection 3D-reconstructions were created by the technologist. Automated exposure control and iterative reconstruction technique were employed. The dose-length product was 447.16 mGy-cm. COMPARISON: None. FINDINGS: There is moderate emphysema. There is a moderate-sized left pneumothorax. There is septal thickening lungs, consistent with mild pulmonary edema. There is mild atelectasis bilaterally. There is a 1.9 cm nodule in left upper lobe. There is a 1.8 cm nodule in left upper lobe. There are 7 mm and 8 mm nodules left upper lobe. There is a trace left pleural effusion. The heart size is normal. No pericardial effusion. There is no pulmonary embolus. The central pulmonary arteries are enlarged, consistent with pulmonary arterial hypertension. There is a gallstone in the gallbladder. The nasogastric tube tip is beyond the inferior margin of the scan, but at least to the stomach. There is an endotracheal tube tip in expected position. A left internal jugular central venous catheter is seen with tip in the superior vena cava. There is moderate thoracic spondylosis. There is mild chronic anterior wedging of multiple vertebral bodies. IMPRESSION: 1. No pulmonary embolus. 2. Moderate-sized left pneumothorax. 3. Mild pulmonary edema. 4. Left lung upper lobe nodules, which may be infection or less likely metastatic disease. 5. Moderate emphysema. Reviewed, dictated and finalized at location E. ATIONS PROJECT MANAGER IMPRESSION: 1. No pulmonary embolus. 2. Moderate-sized left pneumothorax. 3. Mild pulmonary edema. 4. Left lung upper lobe nodules, which may be infection or less likely metastat ic disease. 5. Moderate emphysema.
--- NOTE | ~2025-07-15 | XR_ITS ---
Examination: XR chest 1V portable Clinical History: Acute SOB Comparison: 2 hour prior Technique: Portable AP Findings: Heart size normal. No pneumothorax identified. Lungs otherwise clear, with hyperinflation. Subcutaneous emphysema along left lateral chest wall and neck. No acute bony abnormality. IMPRESSION: 1. No pneumothorax or other acute cardiopulmonary findings given portable technique. Reviewed, dictated and finalized at location R. PEDIATRIC ALLERGIST IMPRESSION: 1. No pneumothorax or other acute cardiopulmonary findings given portable tech nique.
--- NOTE | ~2025-07-15 | XR_ITS ---
EXAMINATION: XR chest 1V portable DATE: 07/22/2025 10:50 INDICATION: Status post chest tube removal TECHNIQUE: frontal view of the chest was obtained. COMPARISON: 07/22/2025 FINDINGS: Interval removal of the left chest tube with reaccumulation of a small left pleural effusion with 2.3 cm separation of the pleural margins at the apex. Hyperexpansion lungs with increased lucency and architectural torsion in the right lower lung zones consistent with emphysema. No airspace opacities, p ulmonary edema, pleural effusion or right-sided pneumothorax. The cardiomediastinal silhouette is normal and midline. IMPRESSION: 1. Reaccumulation of a small left pneumothorax post left chest tube removal. 2. Emphysema. Reviewed, dictated and finalized at location A. ITY ASSURANCE ANALYST
--- NOTE | ~2025-07-15 | XR_ITS ---
Examination: XR chest 1V portable Clinical History: f/u left PTX, chest tube Comparison: 1 day prior Technique: Portable AP Findings: Left chest tube. Heart size normal. Lungs clear. No acute bony abnormality. IMPRESSION: 1. No change or acute cardiopulmonary findings given portable technique. 2. No pneumothorax identified with chest tube in place. Reviewed, dictated and finalized at location R. WORKER
--- NOTE | ~2025-07-15 | XR_ITS ---
Examination: XR chest ET placement Clinical History: ET PLACEMENT Comparison: 1 hour prior Technique: Portable AP Findings/impression: 1. ET tube tip between clavicles and angeles. 2. Lower thorax excluded from exam. Reviewed, dictated and finalized at location R. FICIAL BREEDING RANCH SUPERVISOR
--- NOTE | ~2025-07-15 | XR_ITS ---
Examination: XR chest port-a-cath/central Clinical History: CENTRAL LINE Comparison: 10 minutes prior Technique: Portable AP Findings: ET tube, NG tube, left neck central line. Heart size normal. Left apical pneumothorax. No acute bony abnormality. IMPRESSION: 1. New left apical pneumothorax. Reviewed, dictated and finalized at location R. RACT MODELER
--- NOTE | ~2025-07-15 | XR_ITS ---
Examination: XR chest-chest tube insert/pos Clinical History: CHEST TUBE PLACEMENT Comparison: X-ray and CT 1 day prior Technique: Portable AP Findings: ET tube, NG tube, left neck central line, left chest tube. Heart size normal. Left pneumothorax persists. Severe emphysema with hyperinflation. No acute bony abnormality. IMPRESSION: 1. Left pneumothorax persists despite chest tube placement. Reviewed, dictated and finalized at location R. ESSOR OF JOURNALISM
--- NOTE | ~2025-07-15 | XR_ITS ---
Examination: XR chest 1V portable Clinical History: pneumothorax (left)/ INTUBATED Comparison: Several hours prior Technique: Portable AP Findings: ET tube, NG tube, left neck central line, left chest tube. Heart size normal. Small left apical pneumothorax persists. Severe emphysema with hyperinflation. No acute bony abnormality. IMPRESSION: 1. Small left pneumothorax persists. Reviewed, dictated and finalized at location R. RUMENT INSPECTOR
--- NOTE | ~2025-07-15 | XR_ITS ---
Examination: XR chest 1V portable Clinical History: f/u left PTX, RECENT chest tube Comparison: 1 day prior Technique: Portable AP Findings: Heart size normal. Curvilinear interface left lateral upper lobe. Mild hyperinflation. Persistent subcutaneous emphysema left lateral chest wall. No acute bony abnormality. IMPRESSION: 1. Probably skinfold rather than pneumothorax along left upper lobe. But recommend repeat films with deep inspiration and expiration. Reviewed, dictated and finalized at location R. FIC SIGN ERECTION SUPERVISOR IMPRESSION: 1. Probably skinfold rather than pneumothorax along left upper lobe. But recom mend repeat films with deep inspiration and expiration.
--- NOTE | ~2025-07-15 | XR_ITS ---
EXAMINATION: XR chest 1V portable COMPARISON: No comparisons available. HISTORY: CHEST TUBE CHANGED TO WATER SEAL FINDINGS: The lungs are clear, no effusion. No pneumothorax. Heart is normal size. Mediastinal and hilar contours are within normal limits. Bony thorax no acute abnormality. Miscellaneous: Left central line terminates in the SVC. Left chest tube terminates in the left hemithorax. Impression: Chest tube placement detailed above, no pneumothorax is identified Reviewed, dictated and finalized at location P. SYCHOLOGIST Impression: Chest tube placement detailed above, no pneumothorax is identified
--- NOTE | ~2025-07-15 | XR_ITS ---
EXAMINATION: XR chest 1V portable DATE: 07/21/2025 05:34 INDICATION: Pneumothorax TECHNIQUE: A single frontal view of the chest was obtained. COMPARISON: Yesterday FINDINGS: Left-sided chest tube remains in place. No pneumothorax seen. Subcutaneous emphysema in the left chest wall again noted. Left internal jugular central catheter unchanged in position. No pneumothorax or subphrenic free air seen. Heart size normal. IMPRESSION: 1. Stable exam compared to yesterday. No pneumothorax seen and left-sided chest tube remains unchanged in position. Reviewed, dictated and finalized at location A. TRICAL ASSEMBLER
--- NOTE | ~2025-07-15 | XR_ITS ---
EXAMINATION: XR chest 1V portable COMPARISON: No comparisons available. HISTORY: Resp Failure FINDINGS: Mild pulmonary venous congestion. No pneumothorax. Mild cardiomegaly. Mediastinal and hilar contours are within normal limits. Bony thorax no acute abnormality. Miscellaneous: ET tube 3 cm above the angeles, nasogastric tube in the stomach, left central line in the SVC. Impression: Mild CHF Reviewed, dictated and finalized at location P. HANDLER Impression: Mild CHF
--- NOTE | ~2025-07-15 | XR_ITS ---
EXAMINATION: XR chest 1V portable COMPARISON: No comparisons available. HISTORY: Resp Failure FINDINGS: Mild pulmonary venous congestion. No pneumothorax. Heart is normal size. Mediastinal and hilar contours are within normal limits. Bony thorax no acute abnormality. Miscellaneous: Nasogastric tube terminates in the stomach. ET tube 2 cm above the angeles. Left chest tube in the upper hemithorax. A central line terminates in the SVC. Impression: Mild CHF Reviewed, dictated and finalized at location P. RTING CONSULTANT Impression: Mild CHF
--- NOTE | ~2025-07-15 | XR_ITS ---
Examination: XR chest 1V portable Clinical History: COPD Comparison: 12/01/2024 Technique: Portable AP Findings: Heart size normal. Emphysema, hyperinflation. No acute bony abnormality. IMPRESSION: 1. No acute cardiopulmonary findings given portable technique. Reviewed, dictated and finalized at location R. ELLER TESTER
--- NOTE | ~2025-07-15 | XR_ITS ---
Examination: XR chest 1V portable Clinical History: Resp Failure Comparison: 1 day prior Technique: Portable AP Findings: Left neck central line, left chest tube. Heart size normal. Emphysema. No large pleural effusion or pneumothorax identified. No acute bony abnormality. IMPRESSION: 1. No change or acute cardiopulmonary findings given portable technique. Reviewed, dictated and finalized at location R. AL TECHNICIAN
--- NOTE | 2025-07-15 21:00 | ECG_ITS ---
Test Date: 2025-07-15 21:02:36 Measurements Intervals [place] Rate: 144 P: 0 WA: 0 QRS: 89 QRSD: 93 T: 102 QT: 333 QTc: 517 Interpretive Statements ATRIAL FIBRILLATION WITH RAPID VENTRICULAR RESPONSE POSSIBLE RIGHT VENTRICULAR CONDUCTION DELAY [RSR (QR) IN V1/V2] ANTERIOR MYOCARDIAL INFARCTION , PROBABLY RECENT [40+ ms Q WAVE AND/OR ST/T ABNORMALITY IN V3/V4] ACUTE AL Compared to ECG 11/25/2024 18:31:00 Ventricular premature complex(es) no longer present Aberrant conduction of supraventricular beat(s) no longer present Myocardial infarct finding still present Electronically Signed On 07-16-2025 03:10:28 [employer] by Jordana Joshua M.D.
--- NOTE | 2025-07-15 21:01 | ED.SOB ---
HPI - SOB/Dyspnea General Chief Complaint: Shortness of Breath/Dyspnea Stated Complaint: sob Time Seen by Provider: 07/15/25 20:59 History of Present Illness HPI Narrative: 65-year-old male with history of significant COPD, atrial fibrillation on Xarelto metoprolol noncompliant with treatment. Patient also has a history of drug and alcohol abuse. Drinks daily for last few days and history of opiate addiction. Presents to the emergency department in respiratory extremis. Patient initially called EMS earlier today for respiratory distress but refuse transport after evaluation. Later on the day he was having worsening respiratory distress and EMS arrived to find the patient diaphoretic, tripod positioning, barely able to converse without significant dyspnea with retractions. They administered albuterol, ipratropium, magnesium and Solu-Medrol and placed patient on CPAP with significant improvement prior to arrival to the ED. Patient presently is still retracting but conversational. No longer conversationally dyspneic and feels much improved. Heart rate between 150 and 180 with AFib RVR on the monitor. States that he does not know medications he is supposed to be taking and tells me he has not been taking them regularly. Denies any cough, chest pain, abdominal pain, back pain, fever, chills. Feels much better after interventions. RT called to bedside for transition to BiPAP therapy for continued treatment. Related Data Home Medications ?Medication ?Instructions ?Recorded ?Confirmed ?Last Taken ?Type albuterol sulfate 90 mcg/actuation 2 puff inhalation DAILY PRN 11/11/23 11/26/24 11/25/24 History aerosol inhaler shortness of breath or wheezing buprenorphine 8 mg-naloxone 2 mg 1 tablet sublingual DAILY 11/11/23 11/26/24 Unknown History sublingual tablet rivaroxaban 20 mg tablet (Xarelto) 20 mg PO DAILY 11/11/23 11/26/24 11/25/24 23:40 History umeclidinium 62.5 mcg-vilanterol 1 inh inhalation DAILY 11/11/23 11/26/24 11/17/24 History 25 mcg/actuation powdr for inhalation (Anoro Ellipta) fluticasone fur. 200 mcg-umeclid 1 inh inhalation Q24H 11/26/24 11/26/24 11/25/24 History 62.5 mcg-vilant 25 mcg inhalat.powder (Trelegy Ellipta) gabapentin 300 mg capsule 300 mg PO DAILY 11/26/24 11/26/24 Unknown History mirtazapine 15 mg tablet 15 mg PO DAILY 11/26/24 11/26/24 11/17/24 History sertraline 100 mg tablet 100 mg PO DAILY 11/26/24 11/26/24 11/17/24 History spironolactone 25 mg tablet 12.5 mg PO DAILY 11/26/24 11/26/24 11/17/24 History Allergies Allergy/AdvReac Type Severity Reaction Status Date / Time latex Allergy Unknown Hives Verified 07/15/25 21:54 Review of Systems Review of Systems: As reviewed above in HPI [facility] Past Medical History Medical History BPH (benign prostatic hyperplasia) Tobacco abuse disorder Cardiomyopathy Mitral regurgitation Opioid abuse Alcohol abuse Atrial fibrillation COPD (chronic obstructive pulmonary disease) Surgical History Surgical History History of hernia surgery Family History Family History Father Diabetes mellitus Hypertension Acute myocardial infarction Sibling Family history of alcoholism Mother Dementia Social History Social History Social History: The patient lives with his mother. 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 He smoked a pack of cigarettes per day since he was a teenager. He has had difficulty with alcohol dependence since he was young. He reports that he was in recovery for 20 years but started drinking again within the last year. He reports that he was on Suboxone but her started using fentanyl again October 2024. Code status: Full code Surrogate decision maker: Mother Smoking packs per day: 1 Smoking cigarettes per day: 20.0 Years smoked: 20 Smoking pack-years: 20.00 Smoking status: Current every day smoker Tobacco type: cigarettes Alcohol intake: current Substance use: current Substance use type: marijuana and opiates Other substance usage details: Fentanyl IV last use 11/24/24 at 12pm, marijuana last use 11/17/24. Last use: Pt drinks 1/5 whiskey daily. Last drink was on 11/25/24 at 12pm. Do You Feel Safe in your Home?: Yes Lack of Transportation: No Lack of Food: Never True Current Housing: I Have Housing Concerned About Future Housing: No Difficulty Paying Gas/Electric Bills: No Difficulty Paying for Meds: No Currently Unemployed: No Education: High School Diploma/GED Difficulty w/ Childcare or Family Care: No Spiritual care concerns: No Exam Narrative: GENERAL: Ill-appearing, dyspneic with retractions, able to converse. HEAD: Normocephalic and atraumatic EYES: [PERRLA and EOMI.] ENT: Nares clear, no rhinorrhea or epistaxis. Mucous membranes moist. NECK: Supple. CHEST: Coarse bilateral breath sounds with wheezing and retractions noted. No conversational dyspnea. HEART: Irregular rate and rapid rhythm]. No murmur heard. [Normal peripheral pulses.] ABDOMEN: [Soft, nondistended], [nontender], [No rigidity or guarding] EXTREMITIES: Normal range of motion. No extremity edema SKIN: Warm, dry, no rash. NEURO: [No focal deficits]. Alert and oriented [x3.] PSYCH: [Normal mood and affect.] Course Vital Signs Vital signs: Vital Signs Temperature 36.4 C L 07/15/25 20:52 Pulse Rate 141 H 07/15/25 20:52 Respiratory Rate 15 07/15/25 20:52 Blood Pressure 141/106 H 07/15/25 20:52 Pulse Oximetry 98 07/15/25 20:52 Oxygen Delivery BiPAP 07/15/25 20:52 Temperature 36.2 C L 07/16/25 00:31 Pulse Rate 105 H 07/16/25 01:00 CHEESE SUPERVISOR Respiratory Rate 20 07/16/25 01:00 CHEESE SUPERVISOR Blood Pressure 95/62 L 07/16/25 01:45 CDT Pulse Oximetry 100 07/16/25 00:22 Oxygen Delivery Mechanical Ventilation 07/15/25 23:55 Fraction of Inspired Oxygen 100 07/15/25 23:55 Procedures Central Line Placement Left IJ: Central Line Date: 07/15/25 Central Line Time: 22:57 Performed Emergently - Given emergent patient condition, temporal constraints may have precluded informed consent.: Yes Time Out Performed: Yes Patient Placed on Monitor/Pulse Ox: Yes Max. Sterile Barrier Technique: Caps, large sterile sheet and hand hygiene Central Line Prep: 2% chlorhexidine scrub and sterile drapes applied Technique: US-Guided Local Anesthetic: none Ultrasound Used for Placement: Yes Central Line Lumen Inserted: triple Post Procedure: sutured in place, good blood return, all ports aspirated, flushed, capped and sterile dressing applied Post Procedure X-Ray: tip of catheter in good position and no pneumothorax seen Patient Tolerated Procedure: well and no complications Complications: none Additional Comments: Two left-sided subclavian catheter attempts unsuccessful after kinking of wire. Chest Tube Chest Tube 1: Chest Tube Date: 07/16/25 Chest Tube Time: 00:05 Chest Tube Location: left, anterior axillary line and fifth interspace Tube Type: standard Size of Tube (cm): 15 Chest Tube Prep: Yes betadine prep and sterile drapes applied Anesthetic: none Incision Made With: #10 blade Procedure: sterile prep/drape Post Procedure: sutured to skin, sterile dressing applied and connected to Pluero Vac Tube Drainage: beard of air Post Procedure CXR?: Yes Post Procedure: post CXR reviewed, placement appropriate and pneumo resolved Patient Tolerated Procedure: Yes Intubation Intubation #1: Intubation Date: 07/15/25 Intubation Time: 22:30 Time out performed: Yes sedative: Ketamine Mg Given: 120 paralytic: Rocuronium Mg Given: 100 Laryngoscope: fiber optic video scope Tube Size (cm): 8.0 Method of Intubation: orotracheal Number of Attempts: 1 Tube Secured Depth (cm): 24 Tube Secured Location: lips Tube Placement Confirmation: visualized tube passing through cords, equal breath sounds bilaterally, no breath sounds over epigastrium and confirmation by capnometry Patient Tolerated Procedure: well and no complications Intubation Complications: none MDM - SOB/Dyspnea MDM Narrative Medical decision making narrative: 65-year-old male with history of significant COPD, atrial fibrillation on Xarelto metoprolol noncompliant with treatment. Patient also has a history of drug and alcohol abuse. Drinks daily for last few days and history of opiate addiction. Presents to the emergency department in respiratory extremis. Patient initially called EMS earlier today for respiratory distress but refuse transport after evaluation. Later on the day he was having worsening respiratory distress and EMS arrived to find the patient diaphoretic, tripod positioning, barely able to converse without significant dyspnea with retractions. They administered albuterol, ipratropium, magnesium and Solu-Medrol and placed patient on CPAP with significant improvement prior to arrival to the ED. Patient presently is still retracting but conversational. No longer conversationally dyspneic and feels much improved. Heart rate between 150 and 180 with AFib RVR on the monitor. States that he does not know medications he is supposed to be taking and tells me he has not been taking them regularly. Denies any cough, chest pain, abdominal pain, back pain, fever, chills. Feels much better after interventions. RT called to bedside for transition to BiPAP therapy for continued treatment. Patient is noted to be AFib RVR on the monitor. Hypoxic he for EMS 70% on room air improved to 97% on CPAP/BiPAP. Will hold off on treatment of the rapid AFib is likely reactive and not because of source at this time given his significant COPD history and improvement with current therapies. Will evaluate and see if his heart rate slows down with continued treatment. If patient does not have any significant improvement will consider regions for rate/rhythm control but currently he is much improved and stabilizing with current interventions. BiPAP applied with continuous albuterol and Atrovent. Laboratory studies troponin EKG and chest x-ray obtained. Patient placed on quality assurance monitor chassis infrequently reassessed. On repeat evaluation did request medications for withdrawal symptoms as he was thinking he was going through opiate in alcohol withdrawal. IV buprenorphine administer given he is on BiPAP with improvement. Heart rate still in the 140s to 160s. Given him a low-dose diltiazem infusion which dropped him down to the 120s heart rate and blood pressure remains still in the 160s. Patient also inquired about leaving against medical advice as he felt improved but was still on BiPAP and heart rate still high. Told him that that would be a poor choice and that he would decompensate further. Agreed to stay for further evaluation. Patient re-evaluated and states he is having more difficulty breathing even on BiPAP. RT at bedside and titrating vent settings at this time. Patient ripping off the BiPAP and having difficulty breathing. Wheezing seems improveded but still very tachypneic and now very dyspneic with 2 word dyspnea. He was given Versed IV for some anxiolysis to help him breathe better and this did not have any affect. Given IM epi to help open him up as he was still wheezing on auscultation. No improvement. Patient now head bobbing and not able to answer questions decision made to emergently intubate patient for respiratory distress. Heart rate spiking into the 150s to 170s. Improved after additional bolus of diltiazem and started on effusion heparin. Intubated with an 8-0 tube on 1st pass success. Left-sided subclavian central venous catheter failed x2 with kinking of the wire likely from distorted anatomy, successfully placed left-sided IJ under ultrasound guidance. X-ray confirms placement of central line and catheter as well as ET tube and OG tube. No pneumothorax evident. Stat CTA ordered to rule out thromboembolic event given he is having worsening respiratory function and AFib. Sedation with Versed drip, diltiazem drip and heparin drip ongoing for AFib RVR. Tidal volumes improving on ventilator. Settings of 16, 400, 100, peep 5. Repeat ABG obtained afterwards. After patient returned from CT scan I did review the imaging and he does have a left-sided pneumothorax. Went and re-evaluated patient and he is hemodynamically stable and saturating well. Placement of a 28 [place] chest tube with sterile technique on the left side returned beard of air and decompression of pneumothorax on repeat imaging with slight persistent apical component, air-leak present. He does have emphysematous blebs on both lungs on the CT scan and likely one had burst leading to his sudden decompensation and worsening respiratory/cardiac status prior to the intubation and central line placement, however cannot exclude central line complication. Postprocedural ABG obtained and chest x-ray shows improvement in pneumothorax with tidling on the Pleur-evac with appropriate suction. No bleeding. Sutured to skin sterilely and consulted General surgery for management of chest tube in patient. Dr. Yen agreed to see the patient in the ICU for management of this. Spoke to the hospitalist Dr. Menendez and the hvac mechanical engineer Dr. Hernandez. Melting Operator recommended starting him on antibiotics including Levaquin empirically and will see him in the ICU. Patient is waking up after sedation and still requiring higher doses of sedation to keep him comfortable. Does a history of significant drug abuse likely why he is undergoing high doses of Versed and currently getting fentanyl bolus and drip. Did respond nicely to ketamine during induction so might benefit from a ketamine infusion. Additional fluids given as well as maintenance infusion started. Awaiting ICU bed at this time. Patient did require escalating doses of sedation as he is thrashing about and trying to rip out his support system lines and ET/chest tube. Given fentanyl Versed and given a bolus of ketamine as that he seemed to help him previously while he was markell intubation. Diltiazem infusion stopped given rate control and underlying process improvement. Patient transferred upstairs to ICU at this time. Medical Records Attestation: I reviewed the patient's medical records. Lab Data Attestation: I reviewed the patient's lab results. 07/16/25 00:41 07/15/25 21:11 Labs: Lab Results 07/15/25 07/15/25 07/15/25 Range/Units 21:11 23:42 23:50 WBC 12.2 H Pending (4.5-10.0) K/mm3 RBC 5.11 Pending (4.6-6.20) M/mm3 Hgb 14.9 D Pending (14.0-18.0) g/dL Hct 47.9 Pending (42.0-52.0) % MCV 93.7 Pending (80-100) fl MCH 29.2 Pending (26-34) pg MCHC 31.1 L Pending (32-36) g/dl RDW 16.1 H Pending (11.5-14.5) % Plt Count 209 Pending (150-375) k/mm3 MPV 9.2 Pending (7.4-10.4) fl Immature Gran % (Auto) 0.4 Pending (0-0.5) % Neut % (Auto) 59.6 Pending (45.5-73.1) % Lymph % (Auto) 29.3 Pending (18.3-44.2) % [place] % (Auto) 8.3 Pending (2.6-8.5) % Eos % (Auto) 1.6 Pending (0-4.4) % Baso % (Auto) 0.8 Pending (0.2-1.2) % Lymph # (Auto) 3.56 H Pending (0.9-3.2) K/mm3 [place] # (Auto) 1.0 H Pending (0.1-0.6) K/mm3 Eos # (Auto) 0.2 Pending (0-0.3) K/mm3 Baso # (Auto) 0.1 Pending (0.0-0.1) K/mm3 Abs Immat Gran (auto) 0.05 H Pending (0.00-0.031) K/mm3 Absolute Neuts (auto) 7.3 H Pending (1.3-6.7) K/mm3 Absolute Nucleated RBC 0.000 Pending (0.0-0.012) K/mm3 Nucleated RBC % 0.0 Pending (0.0-0.2) % PT 13.6 (11.1-14.7) Seconds INR 1.0 APTT 27.3 (22.3-36.8) Seconds Methemoglobin 0.3 0.6 (0-1.5) %THb Minute Volume Not Reportable Vent Mode Cmv Expiratory Pressure Pending Tidal Volume 400 ml PEEP 5 cmH2O Inspiratory Pressure Pending Peak Inspir Pressure Not Reportable Pressure Support Not Reportable Sodium 136 L (137-145) mmol/L Potassium 4.6 (3.4-5.0) mmol/L Chloride 99 (98-107) mmol/L Carbon Dioxide 25 (22-30) mmol/L Anion Gap 12 (4-12) mmol/L BUN 19 D (9-20) mg/dL Creatinine 0.72 (0.7-1.3) mg/dL Estim Creat Clear Calc 80 ml/min Estimated GFR > 60 (59 - ) Glucose 86 (65-110) mg/dL Calcium 9.0 (8.4-10.2) mg/dL Total Bilirubin 0.9 (0.2-1.3) mg/dL AST 73 H (17-59) U/L ALT 39 (6-50) U/L Alkaline Phosphatase 83 (38-126) U/L Troponin I 0.022 (0.000-0.034) ng/mL Total Protein 8.2 (6.3-8.2) g/dL Albumin 4.6 (3.5-5.1) g/dL Lipase 42 (23-300) U/L ABG Data ABG results: 07/15/25 07/15/25 21:11 23:50 Puncture Site Right radial Right radial ABG pH 7.314 L 7.008 L* ABG pCO2 40.4 103.9 H* ABG pO2 140.2 H 489.5 H ABG PO2/FiO2 Ratio 4.67 4.89 ABG HCO3 20.1 L 25.5 ABG O2 Saturation 98.6 99.7 ABG O2 Content 20.1 22.2 H ABG Base Excess -5.7 -8.5 A-a Gradient 26.2 119.6 Oxyhemoglobin 97.0 97.8 Carboxyhemoglobin 1.4 1.3 Reduced Hemoglobin 1.3 0.3 Total Hemoglobin 14.6 15.2 O2 Delivery Device Bipap Ventilator O2 Liters/Min Not Reportable Not Reportable Vent Rate 16 FiO2 30 100 Attestation: I personally reviewed and interpreted this ABG as follows: Interpretation: Respiratory acidosis pCO2 100, pH 7.0, increase tidal volumes and nebs. That ABG was pre chest tube, repeating afterwards with an changes and continuous nebs. Imaging Data Attestation: I personally reviewed and interpreted this imaging study as follows: My impression: Initial chest x-ray unremarkable. CTA shows left apical pneumothorax and appropriate positioning ET tube and central venous catheter. Postprocedural x-ray shows improvement in pneumothorax with residual apical in component and chest tube in appropriate position. Critical Care Time Critical Care Time Critical Care Time: Yes Total Critical Care Time: 145 (Critical care time is exclusive of the separately billable procedures above.) Discharge Plan Discharge Clinical Impression: Respiratory failure requiring intubation, Acute exacerbation of chronic obstructive pulmonary disease, Atrial fibrillation with rapid ventricular response, Pneumothorax, left, Opiate withdrawal, Polysubstance abuse, Alcohol abuse Patient Disposition: Still a Patient Condition: Serious Time of Disposition: 01:20
[2025-07-15] MEDS: IPRATROPIUM BR 0.02% INH SOLN 0.5 MG/2.5 ML VIAL 1 MG INHALATION (21:13)
[2025-07-15] MEDS: ALBUTEROL SULFATE NEB 2.5 MG/3 ML INH 10 MG INHALATION (21:13)
[2025-07-15 21:18] LABS: Hematocrit 47.9 % (42.0-52.0); Hemoglobin 14.9 g/dL (14.0-18.0); Immature Granulocyte Percent A 0.4 % (0-0.5); Lymphocytes Absolute Auto 3.56 K/mm3 (0.9-3.2); Mean Corpuscular HGB Conc 31.1 g/dl (32-36); Mean Corpuscular Hemoglobin 29.2 pg (26-34); Mean Corpuscular Volume 93.7 fl (80-100); Nucleated Red Blood Cells Absolute Auto 0.000 K/mm3 (0.0-0.012); Nucleated Red Blood Cells Perc 0.0 % (0.0-0.2); Platelet Count Result 209 k/mm3 (150-375); Red Blood Count 5.11 M/mm3 (4.6-6.20); White Blood Count 12.2 K/mm3 (4.5-10.0)
[2025-07-15 21:28] LABS: Alveolar/Arterial O2 Gradient 26.2 mmHg; Carboxyhemoglobin 1.4 % THb (0-2.0); Fractional Inspired Oxygen 30 %; HCO3 ABG 20.1 mEq/l (22.0-26.0); Methemoglobin ABG 0.3 %THb (0-1.5); Oxygen Content ABG 20.1 %vol (16.0-22.0); Oxygen Saturation ABG 98.6 % (95.0-100.0); PCO2 ABG 40.4 mmHg (35.0-45.0); PO2 ABG 140.2 mmHg (80.0-100.0); PO2 FiO2 Ratio Arterial Blood 4.67 %; Reduced Hemoglobin 1.3 %THb (0-5.0)
[2025-07-15 21:29] LABS: INR 1.0; Prothrombin Time 13.6 Seconds (11.1-14.7)
[2025-07-15] MEDS: LACTATED RINGERS 1,000 ML 999 ML IV CONT (21:29)
[2025-07-15 21:30] LABS: Partial Thromboplastin Time 27.3 Seconds (22.3-36.8)
[2025-07-15 21:31] LABS: Alanine Aminotransferase 39 U/L (6-50); Albumin Level 4.6 g/dL (3.5-5.1); Alkaline Phosphatase 83 U/L (38-126); Anion Gap 12 mmol/L (4-12); Aspartate Amino Transferase 73 U/L (17-59); Bilirubin,Total 0.9 mg/dL (0.2-1.3); Blood Urea Nitrogen 19 mg/dL (9-20); Calcium 9.0 mg/dL (8.4-10.2); Carbon Dioxide 25 mmol/L (22-30); Chloride 99 mmol/L (98-107); Estimated CRCL calculation 80 ml/min; Estimated Glomerular Filt Rate > 60; Glucose 86 mg/dL (65-110); Lipase 42 U/L (23-300); Potassium 4.6 mmol/L (3.4-5.0); Sodium 136 mmol/L (137-145); Total Protein 8.2 g/dL (6.3-8.2)
[2025-07-15 21:43] LABS: Troponin I 0.022 ng/mL (0.000-0.034)
[2025-07-15] MEDS: BUPRENORPHINE 0.3 MG/ML IV PUSH (21:58)
[2025-07-15] MEDS: MIDAZOLAM HCL (*CRX) 2 MG/2 ML VIAL (22:10)
[2025-07-15] MEDS: EPINEPHrine HCL INJ 1 MG/ML AMPUL (22:10)
--- NOTE | 2025-07-15 22:19 | PC.NURSE ---
Pt called out stating he could not breathe @ 2204 Pt labored with severe retractions and heavy labor in breathing Per MD Pt recieved 2 of versed and 0.35 IM Epi @ 2209 Decision to intubate made @ 2219 120 mg Ketamine @2219 100 Rocc 10 ml total @ 2222 Pt Intubated @ 2222 24 at the lip Bilateral breath sounds and color change noted by MD Garvin drip ordered for sedation
[2025-07-15] MEDS: RAPID SEQUENCE INTUBATION KIT 1 EACH (22:30)
[2025-07-15] MEDS: KETAMINE HCL (*CRX) 500 MG/10 ML VIAL (22:30)
--- NOTE | 2025-07-15 22:32 | PC.NURSE ---
Pt recieved 25 of Dilt 2229 Dilt drip started at 5 mL/ per hr
[2025-07-15] MEDS: HEPARIN SOD/D5W 100 UNITS/ML 25,000 UNITS/250 ML BAG 12 UNITS IV CONT (22:57)
[2025-07-15] MEDS: dilTIAZem 100 MG/100 ML 100 MG/100 ML BAG IV CONT (22:58)
[2025-07-15] MEDS: MIDAZOLAM 100MG/NS 100ML(*CRX) 100 MG/100 ML BAG IV CONT (22:59)
--- NOTE | 2025-07-15 23:41 | PC.NURSE ---
Pt ET tube advanced to 27 at the [facility] @ 1257
--- NOTE | 2025-07-15 23:48 | PC.NURSE ---
Per MD decision for chest tubes made based on CT findings @ 8286
--- NOTE | 2025-07-15 23:59 | PC.NURSE ---
left chest tube placed in the 5th intercostal space. set to suction at 20
[2025-07-16] VITALS (80 sets, daily range): BP systolic 79–161; BP diastolic 62–107; PULSE 73–147; RESP 15–37; TEMP 36.2–38.2; O2SAT 95–100; BMI 18.6
--- NOTE | 2025-07-16 00:10 | PC.NURSE ---
chest tube at 15vat chest wall. 18 at dressing line
[2025-07-16] MEDS: MIDAZOLAM HCL (*CRX) 2 MG/2 ML VIAL 4 MG (00:15)
[2025-07-16] MEDS: levoFLOXacin 750 MG/D5W 150 ML 750 MG/150 ML BAG 100 MG IVPB (00:23)
[2025-07-16 00:28] LABS: HCO3 ABG 25.5 mEq/l (22.0-26.0); PCO2 ABG 103.9 mmHg (35.0-45.0); PO2 ABG 489.5 mmHg (80.0-100.0)
[2025-07-16 00:29] LABS: Alveolar/Arterial O2 Gradient 119.6 mmHg; Carboxyhemoglobin 1.3 % THb (0-2.0); Fractional Inspired Oxygen 100 %; Methemoglobin ABG 0.6 %THb (0-1.5); Oxygen Content ABG 22.2 %vol (16.0-22.0); Oxygen Saturation ABG 99.7 % (95.0-100.0); PO2 FiO2 Ratio Arterial Blood 4.89 %; Reduced Hemoglobin 0.3 %THb (0-5.0)
[2025-07-16 00:30] LABS: Modified Allen's Test Pass; Site Drawn RIGHT RADIAL
[2025-07-16 00:33] LABS: Arterial Blood Gas Tidal Volume 400 ml; Arterial Blood Gas Ventilator rate 16 /MIN
[2025-07-16] MEDS: FENTANYL 2,500MCG/NS250ML(*CRX 2,500 MCG/250 ML BAG IV CONT (00:40)
[2025-07-16 00:47] LABS: Hematocrit 45.5 % (42.0-52.0); Hemoglobin 13.9 g/dL (14.0-18.0); Immature Granulocyte Percent A 0.8 % (0-0.5); Lymphocytes Absolute Auto 1.22 K/mm3 (0.9-3.2); Mean Corpuscular HGB Conc 30.5 g/dl (32-36); Mean Corpuscular Hemoglobin 28.9 pg (26-34); Mean Corpuscular Volume 94.6 fl (80-100); Nucleated Red Blood Cells Absolute Auto 0.000 K/mm3 (0.0-0.012); Nucleated Red Blood Cells Perc 0.0 % (0.0-0.2); Platelet Count Result 216 k/mm3 (150-375); Red Blood Count 4.81 M/mm3 (4.6-6.20); White Blood Count 14.7 K/mm3 (4.5-10.0)
--- NOTE | 2025-07-16 00:53 | PC.NURSE ---
tracey lisether placed due to lowered temp
[2025-07-16] MEDS: KETAMINE HCL (*CRX) 500 MG/10 ML VIAL 120 MG IV PUSH (00:57)
[2025-07-16] MEDS: LACTATED RINGERS 1,000 ML 999 ML IV CONT (00:58)
--- NOTE | 2025-07-16 01:12 | PM.IMHP ---
H&P: HPI History of Present Illness Date/Time: 07/16/25 01:12 Chief Complaint: Shortness of breath Narrative: History is taken via chart review and report from ER physician. Patient intubated and unable to provide history. 65-year-old male with PMH BPH, tobacco use disorder, alcohol abuse, fentanyl abuse, AFib on Xarelto and metoprolol but noncompliant, cardiomyopathy, history of UTI, hypertension, presenting to [place] [facility] on 07/15/2025 complaining of shortness of breath. Apparently he had called EMS several times in the past few days for similar symptom but refused to be transferred to the hospital. EMS finally transferred him and the patient was tripoding with O2 saturation 70% on room air., in the ER he received albuterol, ipratropium, magnesium, Solu-Medrol, placed on BiPAP with significant improvement. Patient noted to be in AFib with RVR with heart rate 150-180. He was ready to check out of the ER in spite of being told to stay. Patient also thought he was going through opiate and alcohol withdrawal. IV buprenorphine administered. Patient given diltiazem 25 mg IV x1, eventually placed on 5 milligram/hour GTT due to refractory RVR. Given 1 L lactated Ringer bolus. Then, patient began to deteriorate reporting severe shortness of breath. Wheezing. He ripped off his BiPAP. Patient was given Versed IV for some anxiolysis but that did not work. Patient given IM epinephrine as he was wheezing. Started on heparin GTT for AFib. Patient was then intubated for respiratory failure. A left-sided subclavian central venous catheter failed x2 with kinking of the wire, afterwards a left IJ successfully placed under ultrasound guidance. X-ray confirmed placement of central line, ET tube, OG tube. Stat CTA ordered to rule out thromboembolic event. Patient started on Versed drip. Vent settings at 16, 400, 100 FiO2, peep 5. ABG shortly after demonstrated pH 7.00, pCO2 100, tidal volume increased to 500. Repeat ABG pending. PO2 489.5, FiO2 being weaned down. Otherwise is initial labs demonstrate white count 14.7, hemoglobin 13.9, platelets 209, sodium 136, BUN 19, serum creatinine 0.72, AST 73, troponin 0.022. The CT chest above did demonstrate left-sided pneumothorax. The ER physician and myself reviewed this. Patient also has emphysematous blebs. Official radiology interpretation pending. No PE apparent. Pulmonary edema or consolidations apparent. The patient was still saturating well on 100% FiO2 and hemodynamically stable on the vent. ER physician placed 28 [place] chest tube on left side, revealing decompression on repeat imaging. General surgery consulted for management of chest tube. Web Design Specialist consulted. Advised to start Levaquin empirically. While on max dose Versed 10 mg per hour patient has a RASS of 1-2. Fentanyl 50 mcg per hour started. Patient responded to ketamine well during rapid sequence induction, was given another dose by ER physician as he began to thrash. Blood pressure 96/60, second liter of isotonic fluid bolus being infused. Diltiazem GTT then stop due to improvement of heart rate and improvement of underlying process. Urinary catheter placed. Review of Systems Review of Systems: ROS unobtainable: Yes unobtainable due to endotracheal tube, unobtainable due to medical condition and unobtainable due to mental status PMFSH Past Medical History Medical History BPH (benign prostatic hyperplasia) Tobacco abuse disorder Cardiomyopathy Mitral regurgitation Opioid abuse Alcohol abuse Atrial fibrillation COPD (chronic obstructive pulmonary disease) Surgical History Surgical History History of hernia surgery Family History Family History Father Diabetes mellitus Hypertension Acute myocardial infarction Sibling Family history of alcoholism Mother Dementia Social History Social History Social History: The patient lives with his mother. 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 He smoked a pack of cigarettes per day since he was a teenager. He has had difficulty with alcohol dependence since he was young. He reports that he was in recovery for 20 years but started drinking again within the last year. He reports that he was on Suboxone but her started using fentanyl again October 2024. Code status: Full code Surrogate decision maker: Mother Smoking packs per day: 1 Smoking cigarettes per day: 20.0 Years smoked: 20 Smoking pack-years: 20.00 Smoking status: Current every day smoker Tobacco type: cigarettes Alcohol intake: current Substance use: current Substance use type: marijuana and opiates Other substance usage details: Fentanyl IV last use 11/24/24 at 12pm, marijuana last use 11/17/24. Last use: Pt drinks 1/5 whiskey daily. Last drink was on 11/25/24 at 12pm. Do You Feel Safe in your Home?: Yes Lack of Transportation: No Lack of Food: Never True Current Housing: I Have Housing Concerned About Future Housing: No Difficulty Paying Gas/Electric Bills: No Difficulty Paying for Meds: No Currently Unemployed: No Education: High School Diploma/GED Difficulty w/ Childcare or Family Care: No Spiritual care concerns: No Meds Home Medications and Allergies Home Medications ?Medication ?Instructions ?Recorded ?Confirmed ?Type albuterol sulfate 90 mcg/actuation 2 puff inhalation DAILY PRN 11/11/23 11/26/24 History aerosol inhaler shortness of breath or wheezing buprenorphine 8 mg-naloxone 2 mg 1 tablet sublingual DAILY 11/11/23 11/26/24 History sublingual tablet rivaroxaban 20 mg tablet (Xarelto) 20 mg PO DAILY 11/11/23 11/26/24 History umeclidinium 62.5 mcg-vilanterol 1 inh inhalation DAILY 11/11/23 11/26/24 History 25 mcg/actuation powdr for inhalation (Anoro Ellipta) folic acid 1 mg tablet 1 mg PO DAILY #30 tabs 11/15/23 11/26/24 Rx naloxone 4 mg/actuation nasal 4 mg intranasal Q2M PRN opioid 11/15/23 11/26/24 Rx spray (Narcan) overdose #2 ea thiamine HCl (vitamin B1) 100 mg 100 mg PO QAM #30 tabs 11/15/23 11/26/24 Rx tablet (Vitamin B-1) fluticasone fur. 200 mcg-umeclid 1 inh inhalation Q24H 11/26/24 11/26/24 History 62.5 mcg-vilant 25 mcg inhalat.powder (Trelegy Ellipta) gabapentin 300 mg capsule 300 mg PO DAILY 11/26/24 11/26/24 History mirtazapine 15 mg tablet 15 mg PO DAILY 11/26/24 11/26/24 History sertraline 100 mg tablet 100 mg PO DAILY 11/26/24 11/26/24 History spironolactone 25 mg tablet 12.5 mg PO DAILY 11/26/24 11/26/24 History chlordiazepoxide HCl 25 mg capsule See Rx Instructions .Route 12/02/24 Rx .COMPLEX PRN anxiety #6 caps metoprolol tartrate 25 mg tablet 25 mg PO Q12HR #60 tabs 12/02/24 Rx tamsulosin 0.4 mg capsule 0.4 mg PO QAM #30 caps 12/02/24 Rx Allergies Allergy/AdvReac Type Severity Reaction Status Date / Time latex Allergy Unknown Hives Verified 07/15/25 21:54 Vital Signs Vital Signs - 24 hr 07/15/25 20:52 07/15/25 20:55 07/15/25 21:03 Temperature 97.5 F L Pulse Rate 141 H 145 H 145 H Respiratory Rate 15 19 19 Blood Pressure 141/106 H Pulse Oximetry 98 97 100 Oxygen Delivery BiPAP BiPAP BiPAP Fraction of Inspired Oxygen 50 07/15/25 21:04 07/15/25 21:04 07/15/25 21:14 Temperature Pulse Rate 145 H Respiratory Rate 19 Blood Pressure Pulse Oximetry 100 Oxygen Delivery BiPAP BiPAP Fraction of Inspired Oxygen 07/15/25 22:00 07/15/25 22:10 07/15/25 22:15 Temperature Pulse Rate 149 H 145 H 142 H Respiratory Rate 33 H 33 H Blood Pressure 160/91 H Pulse Oximetry 100 100 Oxygen Delivery Mechanical Ventilation Fraction of Inspired Oxygen 100 07/15/25 22:16 07/15/25 22:17 07/15/25 22:26 Temperature Pulse Rate 147 H 140 H 163 H Respiratory Rate 33 H 31 H 17 Blood Pressure 159/120 H 165/111 H Pulse Oximetry 100 100 Oxygen Delivery Fraction of Inspired Oxygen 07/15/25 22:30 07/15/25 22:53 07/15/25 22:56 Temperature Pulse Rate 165 H 141 H 124 H Respiratory Rate 16 16 16 Blood Pressure 150/97 H Pulse Oximetry 100 100 100 Oxygen Delivery Fraction of Inspired Oxygen 07/15/25 22:58 07/15/25 22:59 07/15/25 23:00 Temperature 96.4 F L Pulse Rate 123 H 114 H 123 H Respiratory Rate 16 16 Blood Pressure Pulse Oximetry Oxygen Delivery Fraction of Inspired Oxygen 07/15/25 23:01 07/15/25 23:24 07/15/25 23:25 Temperature 96.7 F L 97.7 F 97.8 F Pulse Rate 108 H 117 H 118 H Respiratory Rate 16 16 16 Blood Pressure 155/94 H 147/104 H Pulse Oximetry 99 100 Oxygen Delivery Fraction of Inspired Oxygen 07/15/25 23:33 07/15/25 23:36 07/15/25 23:41 Temperature 97.8 F 97.8 F 97.8 F Pulse Rate 113 H 113 H 117 H Respiratory Rate 17 16 16 Blood Pressure 148/92 H 152/97 H Pulse Oximetry 100 99 99 Oxygen Delivery Fraction of Inspired Oxygen 07/15/25 23:45 07/15/25 23:46 07/15/25 23:55 Temperature 97.7 F 97.8 F Pulse Rate 114 H 128 H 109 H Respiratory Rate 16 14 Blood Pressure 140/90 Pulse Oximetry 99 99 98 Oxygen Delivery Mechanical Ventilation Fraction of Inspired Oxygen 100 07/15/25 23:56 07/16/25 00:00 07/16/25 00:01 Temperature 97.7 F 97.7 F 97.7 F Pulse Rate 116 H 105 H 107 H Respiratory Rate 14 19 19 Blood Pressure 133/90 130/88 Pulse Oximetry 99 99 99 Oxygen Delivery Fraction of Inspired Oxygen 07/16/25 00:14 07/16/25 00:21 07/16/25 00:22 Temperature 97.4 F L 97.3 F L Pulse Rate 112 H 130 H 124 H Respiratory Rate 26 H 23 H 24 H Blood Pressure 99/72 L Pulse Oximetry 100 100 Oxygen Delivery Fraction of Inspired Oxygen 07/16/25 00:26 07/16/25 00:30 07/16/25 00:31 Temperature 97.3 F L 97.2 F L 97.2 F L Pulse Rate 109 H 121 H 111 H Respiratory Rate 24 H 25 H 29 H Blood Pressure 94/66 L 79/65 L Pulse Oximetry Oxygen Delivery Fraction of Inspired Oxygen 07/16/25 00:40 07/16/25 00:59 07/16/25 01:00 CDT Temperature Pulse Rate 102 H 105 H 98 Respiratory Rate 15 24 H Blood Pressure Pulse Oximetry Oxygen Delivery Fraction of Inspired Oxygen Exam Const: Other: Cam positive, RASS 2 HENMT: Other: OG and ET tube in place Eyes: Pupils: Equal, round and reactive pupils present (5 mm bilaterally) Neck: Neck: supple Resp: Other: Mechanical breath sounds Cardio: Rate: tachycardic Rhythm: abnormal rhythm GI: Inspection: non-distended GI Palp: Yes Soft to palpation and No Tenderness to palpation present (GI) : General: Yes bladder normal to palpation Neuro: Other: Moves all 4 extremities freely Extrem: General: no edema Other: Pedal pulses faint, feet cool to touch. H&P: Results Labs Labs: Short CBC 07/15/25 07/16/25 Range/Units 21:11 00:41 WBC 12.2 H 14.7 H (4.5-10.0) K/mm3 Hgb 14.9 D 13.9 L (14.0-18.0) g/dL Hct 47.9 45.5 (42.0-52.0) % Plt Count 209 216 (150-375) k/mm3 BMP 07/15/25 21:11 Sodium 136 L Potassium 4.6 Chloride 99 Carbon Dioxide 25 BUN 19 D Creatinine 0.72 Glucose 86 Calcium 9.0 Cardiac Enzymes 07/15/25 Range/Units 21:11 Troponin I 0.022 (0.000-0.034) ng/mL Liver Function 07/15/25 Range/Units 21:11 Total Bilirubin 0.9 (0.2-1.3) mg/dL AST 73 H (17-59) U/L ALT 39 (6-50) U/L Alkaline Phosphatase 83 (38-126) U/L Albumin 4.6 (3.5-5.1) g/dL Assessment and Plan Assessment and plan (1) Alcohol abuse: Code(s): F10.10 - Alcohol abuse, uncomplicated Status: Acute (2) Opioid abuse: Code(s): F11.10 - Opioid abuse, uncomplicated Status: Acute (3) Hypertension: Code(s): I10 - Essential (primary) hypertension Status: Acute (4) Cardiomyopathy: Qualifiers: Cardiomyopathy type: unspecified Qualified Code(s): I42.9 - Cardiomyopathy, unspecified Code(s): I42.9 - Cardiomyopathy, unspecified Status: Acute (5) Atrial fibrillation with rapid ventricular response: Code(s): I48.91 - Unspecified atrial fibrillation Status: Acute (6) Acute dehydration: Code(s): E86.0 - Dehydration Status: Acute (7) COPD (chronic obstructive pulmonary disease): Code(s): J44.9 - Chronic obstructive pulmonary disease, unspecified Status: Chronic (8) Tobacco abuse disorder: Code(s): Z72.0 - Tobacco use Status: Acute (9) Respiratory failure with hypoxia and hypercapnia: Code(s): J96.91 - Respiratory failure, unspecified with hypoxia; J96.92 - Respiratory failure, unspecified with hypercapnia Status: Acute (10) Pneumothorax, left: Code(s): J93.9 - Pneumothorax, unspecified Status: Acute Plan History is taken via chart review and report from ER physician. Patient intubated and unable to provide history. 65-year-old male with PMH BPH, tobacco use disorder, alcohol abuse, fentanyl abuse, AFib on Xarelto and metoprolol but noncompliant, cardiomyopathy, history of UTI, hypertension, presenting to [place] [facility] on 07/15/2025 complaining of shortness of breath. Apparently he had called EMS several times in the past few days for similar symptom but refused to be transferred to the hospital. EMS finally transferred him and the patient was tripoding with O2 saturation 70% on room air., in the ER he received albuterol, ipratropium, magnesium, Solu-Medrol, placed on BiPAP with significant improvement. Patient noted to be in AFib with RVR with heart rate 150-180. He was ready to check out of the ER in spite of being told to stay. Patient also thought he was going through opiate and alcohol withdrawal. IV buprenorphine administered. Patient given diltiazem 25 mg IV x1, eventually placed on 5 milligram/hour GTT due to refractory RVR. Given 1 L lactated Ringer bolus. Then, patient began to deteriorate reporting severe shortness of breath. Wheezing. He ripped off his BiPAP. Patient was given Versed IV for some anxiolysis but that did not work. Patient given IM epinephrine as he was wheezing. Started on heparin GTT for AFib. Patient was then intubated for respiratory failure. A left-sided subclavian central venous catheter failed x2 with kinking of the wire, afterwards a left IJ successfully placed under ultrasound guidance. X-ray confirmed placement of central line, ET tube, OG tube. Stat CTA ordered to rule out thromboembolic event. Patient started on Versed drip. Vent settings at 16, 400, 100 FiO2, peep 5. ABG shortly after demonstrated pH 7.00, pCO2 100, tidal volume increased to 500. Repeat ABG pending. PO2 489.5, FiO2 being weaned down. Otherwise is initial labs demonstrate white count 14.7, hemoglobin 13.9, platelets 209, sodium 136, BUN 19, serum creatinine 0.72, AST 73, troponin 0.022. The CT chest above did demonstrate left-sided pneumothorax. The ER physician and myself reviewed this. Patient also has emphysematous blebs. Official radiology interpretation pending. No PE apparent. Pulmonary edema or consolidations apparent. The patient was still saturating well on 100% FiO2 and hemodynamically stable on the vent. ER physician placed 28 [place] chest tube on left side, revealing decompression on repeat imaging. General surgery consulted for management of chest tube. Web Design Specialist consulted. Advised to start Levaquin empirically. While on max dose Versed 10 mg per hour patient has a RASS of 1-2. Fentanyl 50 mcg per hour started. Patient responded to ketamine well during rapid sequence induction, was given another dose by ER physician as he began to thrash. Blood pressure 96/60, second liter of isotonic fluid bolus being infused. Diltiazem GTT then stop due to improvement of heart rate and improvement of underlying process. Urinary catheter placed. ----- Repeat chest x-ray daily. General surgery to manage chest tube. On max Versed GTT. Fentanyl GTT started. Received ketamine during rapid sequence intubation and again thereafter as patient was thrashing. Titrate to RASS -1 unless otherwise directed by assistant manager quality management. Appreciate assistant manager quality management recommendations and management. Currently vent settings at 500, 16, 100% FiO2 being titrated down, peep 5. Repeat ABG daily. Alcohol, fentanyl, tobacco use disorder. On Versed, fentanyl. Buprenorphine p.r.n. for withdrawal symptoms. Counseling to be provided when extubated. Check urine drug screen, serum ethanol level. Leukocytosis, no evidence of overt infection, afebrile, patient is on Levaquin. Could be reactive and/or due to Solu-Medrol use. Continue to trend. Check procalcitonin if needed. Continue Solu-Medrol. Ipratropium nebulization only for now. Check quad viral screen. AFib with RVR. Noncompliant. Continue heparin GTT. Diltiazem GTT discontinued due to lower blood pressure and improvement of heart rate after decompression of pneumothorax. Patient appeared clinically dehydrated on presentation, received 2 L isotonic fluid bolus, continue lactated Ringer's at 125 cc/hour. Monitor volume status, last echocardiogram 11/12/2023 with EF 50-55%, reportedly had a EF of 40% prior. Daily weights, strict intake/output monitoring. ----- ETT, OG, urinary catheter placed, intubated on 07/15/2025. Left-sided chest tube placed on 07/15/2025. Left IJ central venous catheter placed on 07/15/2025. Full code. Heparin GTT, SCDs. General surgery, assistant manager quality management consultation. Daily weights, strict intake and output monitoring. Polysubstance abuse, care coordination consultation when extubated. Admit to ICU. Hospitalist [facility] Advance Care Plan I have confirmed that the patient's Advanced Care Plan is present, code status is documented, or surrogate decision maker is listed in patient medical record.: Yes Medication Reconciliation I have utilized all available resources to obtain, update and review the patients current medications (includes all prescriptions, OTC, herbals, cannabis, and nutritional supplements).: No The patient is not eligible for med reconciliation; the patient is in a emergent medical situation where delaying treatment would jeopardize the patients health.: Yes
[2025-07-16 01:19] LABS: Modified Allen's Test Pass; Site Drawn RIGHT RADIAL
[2025-07-16] MEDS: LACTATED RINGERS 1,000 ML 125 ML IV CONT ×3 (01:23→17:12)
--- NOTE | 2025-07-16 01:25 | ADMGEN ---
This patient, Javad Gant, was admitted to Intensive Care Unit-6 at 0130. Patient (intubated/sedated)/family (not at bedside) oriented to hospital policies and general routines including ID bracelet, bed and alarms, visiting hours, pain management, procedures, bathroom and other care routines, personal items, smoking policy, room service/diet, and visiting hours. Information on how to activate the Rapid Response Team has been discussed. Patient/Family are encouraged to report perceived risks to care and to ask questions if they do not understand what they are told or what they should do.
[2025-07-16 01:26] LABS: Alveolar/Arterial O2 Gradient 96.7 mmHg; Carboxyhemoglobin 0.5 % THb (0-2.0); Fractional Inspired Oxygen 70 %; HCO3 ABG 23.0 mEq/l (22.0-26.0); Methemoglobin ABG 0.3 %THb (0-1.5); Oxygen Content ABG 18.7 %vol (16.0-22.0); Oxygen Saturation ABG 99.7 % (95.0-100.0); PCO2 ABG 48.9 mmHg (35.0-45.0); PO2 ABG 349.8 mmHg (80.0-100.0); PO2 FiO2 Ratio Arterial Blood 5.00 %; Reduced Hemoglobin 0.2 %THb (0-5.0)
[2025-07-16 01:30] LABS: Arterial Blood Gas Tidal Volume 500 ml; Arterial Blood Gas Ventilator rate 16 /MIN; Modified Allen's Test Pass; Site Drawn RIGHT RADIAL
[2025-07-16] MEDS: IPRATROPIUM BR 0.02% INH SOLN 0.5 MG/2.5 ML VIAL INHALATION ×2 (01:37→07:09)
--- NOTE | 2025-07-16 01:38 | PC.NURSE ---
0124 Spoke with patient's contact, brother, Carter Gant. Glendaaime states he does not think patient has been taking any home meds, although he does state patient has been prescribed some. Glendaaime states Javad lives at home with him as well as their mother. Carter states Javad drinks about a fifth of alcohol daily and uses drugs, stating mostly fentanyl. Carter believes the patient's last use was 07/15/25 just prior to admission. Unable to answer further admissions questions at this time.
--- NOTE | 2025-07-16 01:55 | PC.NURSE ---
Daylight Savings Time For Daylight Savings Time Ending in the Fall - Clocks are moved back. For Daylight Savings Time Beginning in the Spring - Clocks are moved ahead. For [facility], the time of change occurs at 0200 hrs. Time is taken from the toll service observer. This entry on the patient's chart recognizes the change in time reflected during documentation. Example: 2 entries for vital signs may be charted for 0200 hrs.
[2025-07-16] MEDS: ALBUTEROL SULFATE NEB 2.5 MG/3 ML INH 10 MG INHALATION (02:00)
[2025-07-16 02:08] LABS: MRSA (PCR) NOT DETECTED (NOT DETECTE)
[2025-07-16 02:11] LABS: Cannabinoid Screen Urine Negative (Negative)
[2025-07-16 02:15] LABS: Troponin I 0.016 ng/mL (0.000-0.034)
[2025-07-16 02:28] LABS: Influenza A QL RT-PCR Negative (Negative); Influenza B QL RT-PCR Negative (Negative); RSV RNA, RT-PCR Negative (Negative); SARS-CoV-2 RNA PCR Negative (Negative)
[2025-07-16 04:20] LABS: Hematocrit 37.7 % (42.0-52.0); Hemoglobin 11.8 g/dL (14.0-18.0); Immature Granulocyte Percent A 0.6 % (0-0.5); Lymphocytes Absolute Auto 0.42 K/mm3 (0.9-3.2); Mean Corpuscular HGB Conc 31.3 g/dl (32-36); Mean Corpuscular Hemoglobin 29.1 pg (26-34); Mean Corpuscular Volume 93.1 fl (80-100); Nucleated Red Blood Cells Absolute Auto 0.000 K/mm3 (0.0-0.012); Nucleated Red Blood Cells Perc 0.0 % (0.0-0.2); Platelet Count Result 163 k/mm3 (150-375); Red Blood Count 4.05 M/mm3 (4.6-6.20); White Blood Count 13.7 K/mm3 (4.5-10.0)
[2025-07-16 05:01] LABS: Anisocytosis 1+; Ovalocytes Occasional; Schistocytes None Seen
[2025-07-16 05:11] LABS: Alveolar/Arterial O2 Gradient 94.2 mmHg; Carboxyhemoglobin 0.4 % THb (0-2.0); Fractional Inspired Oxygen 40 %; HCO3 ABG 25.2 mEq/l (22.0-26.0); Methemoglobin ABG 0.4 %THb (0-1.5); Oxygen Content ABG 18.3 %vol (16.0-22.0); Oxygen Saturation ABG 98.8 % (95.0-100.0); PCO2 ABG 42.8 mmHg (35.0-45.0); PO2 ABG 141.8 mmHg (80.0-100.0); PO2 FiO2 Ratio Arterial Blood 3.55 %; Reduced Hemoglobin 1.2 %THb (0-5.0)
[2025-07-16 05:18] LABS: Arterial Blood Gas Ventilator rate 16 /MIN; Modified Allen's Test Pass; Site Drawn RIGHT RADIAL
[2025-07-16 05:19] LABS: Arterial Blood Gas Tidal Volume 500 ml
[2025-07-16] MEDS: PROPOFOL IV EMULSION 100 ML 1.87 MG IV CONT (05:40)
[2025-07-16] MEDS: dilTIAZem 100 MG/100 ML 100 MG/100 ML BAG IV CONT (05:45)
[2025-07-16 06:06] LABS: Partial Thromboplastin Time 91.3 Seconds (22.3-36.8)
[2025-07-16 06:10] LABS: Alanine Aminotransferase 51 U/L (6-50); Albumin Level 3.9 g/dL (3.5-5.1); Alkaline Phosphatase 68 U/L (38-126); Anion Gap 11 mmol/L (4-12); Aspartate Amino Transferase 74 U/L (17-59); Bilirubin,Total 1.0 mg/dL (0.2-1.3); Blood Urea Nitrogen 25 mg/dL (9-20); Calcium 8.4 mg/dL (8.4-10.2); Carbon Dioxide 23 mmol/L (22-30); Chloride 98 mmol/L (98-107); Estimated CRCL calculation 80 ml/min; Estimated Glomerular Filt Rate > 60; Glucose 224 mg/dL (65-110); Magnesium 1.5 mg/dL (1.6-2.3); Potassium 4.2 mmol/L (3.4-5.0); Sodium 132 mmol/L (137-145); Total Protein 6.9 g/dL (6.3-8.2); Troponin I 0.030 ng/mL (0.000-0.034)
[2025-07-16] MEDS: MIDAZOLAM 100MG/NS 100ML(*CRX) 100 MG/100 ML BAG 10 MG IV CONT (07:25)
[2025-07-16] MEDS: dilTIAZem 100 MG/100 ML 100 MG/100 ML BAG 15 MG IV CONT ×3 (07:30→17:20)
--- NOTE | 2025-07-16 08:15 | PM.IMPN ---
Progress Note: A&P Assessment and Plan (1) Respiratory failure with hypoxia and hypercapnia: Code(s): J96.91 - Respiratory failure, unspecified with hypoxia; J96.92 - Respiratory failure, unspecified with hypercapnia Status: Acute Assessment and Plan: Due to COPD, left pneumothorax, possible sepsis (fever, leukocytosis, respiratory failure, ABNL U/A) Continue support on vent with sedation 07/16 CXR reviewed Await culture results (2) Pneumothorax, left: Code(s): J93.9 - Pneumothorax, unspecified Status: Acute Assessment and Plan: Left chest tube managed by general surgery (3) COPD (chronic obstructive pulmonary disease): Code(s): J44.9 - Chronic obstructive pulmonary disease, unspecified Status: Chronic Assessment and Plan: Solu-Medrol, Levaquin SSI while on steroids (4) Alcohol abuse: Code(s): F10.10 - Alcohol abuse, uncomplicated Status: Acute Assessment and Plan: Continue propafol (5) Opioid abuse: Code(s): F11.10 - Opioid abuse, uncomplicated Status: Acute Assessment and Plan: Continue prn buprenorphine (6) Hypertension: Code(s): I10 - Essential (primary) hypertension Status: Acute Assessment and Plan: IV diltiazem, consider prn hydralazine (7) Cardiomyopathy: Qualifiers: Cardiomyopathy type: unspecified Qualified Code(s): I42.9 - Cardiomyopathy, unspecified Code(s): I42.9 - Cardiomyopathy, unspecified Status: Acute Assessment and Plan: Echo pending (8) Atrial fibrillation with rapid ventricular response: Code(s): I48.91 - Unspecified atrial fibrillation Status: Acute Assessment and Plan: Continue heparin, diltiazem (9) Acute dehydration: Code(s): E86.0 - Dehydration Status: Acute Assessment and Plan: IVF (10) Tobacco abuse disorder: Code(s): Z72.0 - Tobacco use Status: Acute Subjective Date/time seen: 07/16/25 08:15 Interval history: Intubated and sedated. History is taken via chart review. 65-year-old male with PMH BPH, tobacco use disorder, alcohol abuse, fentanyl abuse, AFib on Xarelto and metoprolol but noncompliant, cardiomyopathy, history of UTI, hypertension, presenting to [place] [facility] on 07/15/2025 complaining of shortness of breath. In ED, O2 saturation was 70% on room air and he received albuterol, ipratropium, magnesium, Solu-Medrol, placed on BiPAP with significant improvement. Patient noted to be in AFib with RVR with heart rate 150-180. Patient also thought he was going through opiate and alcohol withdrawal. IV buprenorphine was administered. Patient given diltiazem 25 mg IV x1, eventually placed on 5 milligram/hour GTT due to refractory RVR. Given 1 L lactated Ringer bolus. His respiratory status deteriorated and he required intubation. CT chest did demonstrate left-sided pneumothorax. ETT, OG, urinary catheter placed, intubated on 07/15/2025. Left-sided chest tube placed on 07/15/2025. Left IJ central venous catheter placed on 07/15/2025. Full code. Heparin GTT, SCDs. Review of Systems Review of Systems: ROS unobtainable: Yes unobtainable due to medical condition Exam Narrative: HEENT: Pupils meiotic, sclerae nonicteric, pharyngeal mucosa pink and intact, OG and ET tubes in place NECK: No JVD CHEST: Coarse BS HEART: NL S1/S2, irregular, no murmur ABDOMEN: BS hypoactive, soft, nontender, no mass, no bruits EXTREMITIES: No cyanosis, edema, or clubbing NEUROLOGIC: CN intact and symmetric to inspection. MUSCULOSKELETAL: No gross deformity PSYCH: Sedated and unresponsive to verbal or tactile stimuli Objective Data Vital Signs Vital Signs: Vital Signs - 24 hr 07/15/25 20:52 07/15/25 20:55 07/15/25 21:03 Temperature 97.5 F L Pulse Rate 141 H 145 H 145 H Respiratory Rate 15 19 19 Blood Pressure 141/106 H Pulse Oximetry 98 97 100 Oxygen Delivery BiPAP BiPAP BiPAP Fraction of Inspired Oxygen 50 07/15/25 21:04 07/15/25 21:04 07/15/25 21:14 Temperature Pulse Rate 145 H Respiratory Rate 19 Blood Pressure Pulse Oximetry 100 Oxygen Delivery BiPAP BiPAP Fraction of Inspired Oxygen 07/15/25 22:00 07/15/25 22:10 07/15/25 22:15 Temperature Pulse Rate 149 H 145 H 142 H Respiratory Rate 33 H 33 H Blood Pressure 160/91 H Pulse Oximetry 100 100 Oxygen Delivery Mechanical Ventilation Fraction of Inspired Oxygen 100 07/15/25 22:16 07/15/25 22:17 07/15/25 22:26 Temperature Pulse Rate 147 H 140 H 163 H Respiratory Rate 33 H 31 H 17 Blood Pressure 159/120 H 165/111 H Pulse Oximetry 100 100 Oxygen Delivery Fraction of Inspired Oxygen 07/15/25 22:30 07/15/25 22:53 07/15/25 22:56 Temperature Pulse Rate 165 H 141 H 124 H Respiratory Rate 16 16 16 Blood Pressure 150/97 H Pulse Oximetry 100 100 100 Oxygen Delivery Fraction of Inspired Oxygen 07/15/25 22:58 07/15/25 22:59 07/15/25 23:00 Temperature 96.4 F L Pulse Rate 123 H 114 H 123 H Respiratory Rate 16 16 Blood Pressure Pulse Oximetry Oxygen Delivery Fraction of Inspired Oxygen 07/15/25 23:01 07/15/25 23:24 07/15/25 23:25 Temperature 96.7 F L 97.7 F 97.8 F Pulse Rate 108 H 117 H 118 H Respiratory Rate 16 16 16 Blood Pressure 155/94 H 147/104 H Pulse Oximetry 99 100 Oxygen Delivery Fraction of Inspired Oxygen 07/15/25 23:33 07/15/25 23:36 07/15/25 23:41 Temperature 97.8 F 97.8 F 97.8 F Pulse Rate 113 H 113 H 117 H Respiratory Rate 17 16 16 Blood Pressure 148/92 H 152/97 H Pulse Oximetry 100 99 99 Oxygen Delivery Fraction of Inspired Oxygen 07/15/25 23:45 07/15/25 23:46 07/15/25 23:55 Temperature 97.7 F 97.8 F Pulse Rate 114 H 128 H 109 H Respiratory Rate 16 14 Blood Pressure 140/90 Pulse Oximetry 99 99 98 Oxygen Delivery Mechanical Ventilation Fraction of Inspired Oxygen 100 07/15/25 23:56 07/16/25 00:00 07/16/25 00:01 Temperature 97.7 F 97.7 F 97.7 F Pulse Rate 116 H 105 H 107 H Respiratory Rate 14 19 19 Blood Pressure 133/90 130/88 Pulse Oximetry 99 99 99 Oxygen Delivery Fraction of Inspired Oxygen 07/16/25 00:14 07/16/25 00:21 07/16/25 00:22 Temperature 97.4 F L 97.3 F L Pulse Rate 112 H 130 H 124 H Respiratory Rate 26 H 23 H 24 H Blood Pressure 99/72 L Pulse Oximetry 100 100 Oxygen Delivery Fraction of Inspired Oxygen 07/16/25 00:26 07/16/25 00:30 07/16/25 00:31 Temperature 97.3 F L 97.2 F L 97.2 F L Pulse Rate 109 H 121 H 111 H Respiratory Rate 24 H 25 H 29 H Blood Pressure 94/66 L 79/65 L Pulse Oximetry Oxygen Delivery Fraction of Inspired Oxygen 07/16/25 00:40 07/16/25 00:59 07/16/25 01:00 CDT Temperature Pulse Rate 102 H 105 H 98 Respiratory Rate 15 24 H Blood Pressure Pulse Oximetry Oxygen Delivery Fraction of Inspired Oxygen 07/16/25 01:42 CDT 07/16/25 01:45 CDT 07/16/25 01:00 PLASTERER JOURNEYMAN Temperature Pulse Rate 99 104 H 105 H Respiratory Rate 16 20 Blood Pressure 88/63 L 95/62 L Pulse Oximetry Oxygen Delivery Fraction of Inspired Oxygen 07/16/25 01:00 PLASTERER JOURNEYMAN 07/16/25 01:15 PLASTERER JOURNEYMAN 07/16/25 01:30 PLASTERER JOURNEYMAN Temperature 97.1 F L 97.4 F L Pulse Rate 105 H 106 H 102 H Respiratory Rate 20 16 17 Blood Pressure 103/68 112/71 Pulse Oximetry 100 100 Oxygen Delivery Fraction of Inspired Oxygen 07/16/25 01:38 PLASTERER JOURNEYMAN 07/16/25 01:39 PLASTERER JOURNEYMAN 07/16/25 01:45 PLASTERER JOURNEYMAN Temperature 97.6 F Pulse Rate 112 H 103 H 108 H Respiratory Rate 22 H 24 H Blood Pressure 115/74 Pulse Oximetry 100 100 Oxygen Delivery Mechanical Ventilation Fraction of Inspired Oxygen 70 07/16/25 02:00 07/16/25 02:00 07/16/25 02:00 Temperature 97.9 F Pulse Rate 103 H 103 H 103 H Respiratory Rate 23 H 23 H Blood Pressure 115/71 Pulse Oximetry 100 Oxygen Delivery Fraction of Inspired Oxygen 07/16/25 02:00 07/16/25 02:19 07/16/25 02:47 Temperature Pulse Rate 103 H 112 H 120 H Respiratory Rate 23 H 25 H 22 H Blood Pressure Pulse Oximetry Oxygen Delivery Fraction of Inspired Oxygen 07/16/25 03:00 07/16/25 04:00 07/16/25 04:00 Temperature 99.2 F Pulse Rate 112 H 122 H 122 H Respiratory Rate 24 H 24 H 24 H Blood Pressure 116/88 Pulse Oximetry 100 Oxygen Delivery Fraction of Inspired Oxygen 07/16/25 04:00 07/16/25 04:00 07/16/25 04:00 Temperature 99.7 F H Pulse Rate 128 H Respiratory Rate 25 H Blood Pressure 132/100 H Pulse Oximetry 100 100 Oxygen Delivery Mechanical Ventilation Fraction of Inspired Oxygen 40 40 07/16/25 04:00 07/16/25 04:15 07/16/25 04:22 Temperature Pulse Rate 116 H 130 H 136 H Respiratory Rate 28 H 34 H Blood Pressure 140/98 H Pulse Oximetry Oxygen Delivery Fraction of Inspired Oxygen 07/16/25 05:00 07/16/25 05:05 07/16/25 05:15 Temperature 100.1 F H Pulse Rate 131 H 132 H 147 H Respiratory Rate 34 H 29 H Blood Pressure 144/91 H 161/107 H Pulse Oximetry 100 100 Oxygen Delivery Mechanical Ventilation Fraction of Inspired Oxygen 40 07/16/25 05:30 07/16/25 05:40 07/16/25 05:45 Temperature Pulse Rate 136 H 138 H 133 H Respiratory Rate 23 H Blood Pressure 157/97 H 135/82 Pulse Oximetry Oxygen Delivery Fraction of Inspired Oxygen 07/16/25 06:00 07/16/25 06:00 07/16/25 06:00 Temperature Pulse Rate 130 H 130 H 130 H Respiratory Rate 22 H 22 H Blood Pressure 139/85 Pulse Oximetry Oxygen Delivery Fraction of Inspired Oxygen 07/16/25 06:00 07/16/25 06:00 07/16/25 06:00 Temperature 100.2 F H Pulse Rate 130 H 130 H 130 H Respiratory Rate 22 H 22 H Blood Pressure 139/85 Pulse Oximetry 99 Oxygen Delivery Fraction of Inspired Oxygen 07/16/25 07:00 07/16/25 07:05 07/16/25 07:11 Temperature 100.2 F H Pulse Rate 132 H 125 H 122 H Respiratory Rate 37 H 23 H Blood Pressure 144/94 H Pulse Oximetry 99 99 Oxygen Delivery Mechanical Ventilation Fraction of Inspired Oxygen 30 07/16/25 07:25 07/16/25 07:25 07/16/25 07:27 Temperature Pulse Rate 130 H 130 H 124 H Respiratory Rate 25 H 25 H 37 H Blood Pressure Pulse Oximetry Oxygen Delivery Fraction of Inspired Oxygen 07/16/25 07:37 Temperature 100.2 F H Pulse Rate 126 H Respiratory Rate 22 H Blood Pressure 148/99 H Pulse Oximetry 98 Oxygen Delivery Fraction of Inspired Oxygen Intake/Output Intake/Output: Intake & Output 07/13/25 07/14/25 07/15/25 07/16/25 23:59 23:59 23:59 22:59 Intake Total 1000 887.4 Output Total 673 Balance 1000 214.4 Meds/Results Medications: Active Medications Generic Name Dose Route Start Last Admin Trade Name Freq PRN Reason Stop Dose Admin Buprenorphine HCl 0.3 mg 07/15/25 21:37 07/15/25 21:58 Buprenorphine Hcl (*Crx) 0.3 Mg/Ml Vial IV PUSH 0.3 mg Q6H PRN Administration Withdrawal Heparin Sodium (Porcine) 5,000 units 07/15/25 22:25 Heparin Sodium 5,000 Units/Ml Vial IV PUSH PRN PRN aPTT less than 55 seconds Heparin Sodium (Porcine) 2,500 units 07/15/25 22:25 Heparin Sodium 5,000 Units/Ml Vial IV PUSH PRN PRN aPTT 55 - 70 seconds Midazolam HCl 100 mg in 100 mls @ 10 mls/hr 07/15/25 22:20 07/16/25 07:25 Versed 100 Mg/Ns 100 Ml IV CONT 10 mg/hr .Q10H MIGUEL A 10 mls/hr Protocol Administration 10 MG/HR Heparin Sodium/Dextrose 25,000 units in 250 mls @ 12 mls/hr 07/15/25 22:25 07/16/25 06:00 Heparin Sodium/D5w 100 Units/Ml IV CONT 1,200 units/hr .[id number] MIGUEL A 12 mls/hr Protocol Titration 1,200 UNITS/HR Lactated Ringer's 1,000 mls @ 125 mls/hr 07/16/25 00:25 07/16/25 04:00 Lr - Lactated Ringers Iv IV CONT 0 mls/hr .Q8H MIGUEL A Infusion Fentanyl Citrate 2,500 mcg in 250 mls @ 20 mls/hr 07/16/25 00:30 07/16/25 06:00 Fentanyl 2,500 Mcg/Ns 250 Ml IV CONT 200 mcg/hr .[id number] MIGUEL A 20 mls/hr Protocol Titration 200 MCG/HR Propofol 100 mls @ 13.062 mls/hr 07/16/25 05:25 07/16/25 07:27 Diprivan IV CONT 35 mcg/kg/min .[id number] MIGUEL A 13.06 mls/hr Protocol Titration 35 MCG/KG/MIN Diltiazem HCl 100 mg in 100 mls @ 5 mls/hr 07/16/25 05:25 07/16/25 06:00 Cardizem 100 Mg/100 Ml IV CONT 5 mg/hr .Q20H MIGUEL A 5 mls/hr 5 MG/HR Infusion Ipratropium [place] 0.5 mg 07/16/25 02:00 07/16/25 07:09 Ipratropium Br 0.02% Inh Soln 0.5 Mg/2.5 Ml Vial INHALATION 0.5 mg Q6HRT MIGUEL A Administration Methylprednisolone Sodium Succinate 80 mg 07/16/25 06:00 07/16/25 05:50 Methylprednisolone Sod Succ 125 Mg Vial IV PUSH 80 mg Q8HR MIGUEL A Administration Labs Labs: Laboratory Results - last 24 hr 07/15/25 07/15/25 07/16/25 21:11 23:50 00:41 WBC 12.2 H 14.7 H RBC 5.11 4.81 Hgb 14.9 D 13.9 L Hct 47.9 45.5 MCV 93.7 94.6 MCH 29.2 28.9 MCHC 31.1 L 30.5 L RDW 16.1 H 16.2 H Plt Count 209 216 MPV 9.2 9.3 Immature Gran % (Auto) 0.4 0.8 H Neut % (Auto) 59.6 88.1 H Lymph % (Auto) 29.3 8.3 L Dawson % (Auto) 8.3 1.7 L Eos % (Auto) 1.6 0.6 Baso % (Auto) 0.8 0.5 Lymph # (Auto) 3.56 H 1.22 Dawson # (Auto) 1.0 H 0.3 Eos # (Auto) 0.2 0.1 Baso # (Auto) 0.1 0.1 Abs Immat Gran (auto) 0.05 H 0.12 H Absolute Neuts (auto) 7.3 H 12.9 H Absolute Nucleated RBC 0.000 0.000 Band Neutrophils % Nucleated RBC % 0.0 0.0 Platelet Estimate Anisocytosis Ovalocytes Schistocytes PT 13.6 INR 1.0 APTT 27.3 Puncture Site Right radial Right radial ABG pH 7.314 L 7.008 L* ABG pCO2 40.4 103.9 H* ABG pO2 140.2 H 489.5 H ABG PO2/FiO2 Ratio 4.67 4.89 ABG HCO3 20.1 L 25.5 ABG O2 Saturation 98.6 99.7 ABG O2 Content 20.1 22.2 H ABG Base Excess -5.7 -8.5 A-a Gradient 26.2 119.6 Oxyhemoglobin 97.0 97.8 Carboxyhemoglobin 1.4 1.3 Methemoglobin 0.3 0.6 Reduced Hemoglobin 1.3 0.3 Total Hemoglobin 14.6 15.2 O2 Delivery Device Bipap Ventilator O2 Liters/Min Not Reportable Not Reportable Minute Volume Not Reportable Vent Rate 16 Vent Mode Cmv FiO2 30 100 Tidal Volume 400 PEEP 5 Peak Inspir Pressure Not Reportable Pressure Support Not Reportable Sodium 136 L Potassium 4.6 Chloride 99 Carbon Dioxide 25 Anion Gap 12 BUN 19 D Creatinine 0.72 Estim Creat Clear Calc 80 Estimated GFR > 60 Glucose 86 Calcium 9.0 Phosphorus Magnesium Total Bilirubin 0.9 AST 73 H ALT 39 Alkaline Phosphatase 83 Troponin I 0.022 Total Protein 8.2 Albumin 4.6 Lipase 42 Nasal MRSA (PCR) Urine Opiates Screen Urine Methadone Screen Ur Barbiturates Screen Ur Phencyclidine Scrn Ur Amphetamine Screen U Benzodiazepines Scrn Urine Cocaine Screen U Cannabinoids Screen Ethyl Alcohol Influenza A (RT-PCR) Influenza B (RT-PCR) RSV (RT-PCR) SARS-CoV-2 RNA (RT-PCR) 07/16/25 07/16/25 07/16/25 01:21 PLASTERER JOURNEYMAN 01:43 PLASTERER JOURNEYMAN 01:52 PLASTERER JOURNEYMAN WBC RBC Hgb Hct MCV MCH MCHC RDW Plt Count MPV Immature Gran % (Auto) Neut % (Auto) Lymph % (Auto) Dawson % (Auto) Eos % (Auto) Baso % (Auto) Lymph # (Auto) Dawson # (Auto) Eos # (Auto) Baso # (Auto) Abs Immat Gran (auto) Absolute Neuts (auto) Absolute Nucleated RBC Band Neutrophils % Nucleated RBC % Platelet Estimate Anisocytosis Ovalocytes Schistocytes PT INR APTT Puncture Site Right radial ABG pH 7.290 L* ABG pCO2 48.9 H ABG pO2 349.8 H ABG PO2/FiO2 Ratio 5.00 ABG HCO3 23.0 ABG O2 Saturation 99.7 ABG O2 Content 18.7 ABG Base Excess -3.8 A-a Gradient 96.7 Oxyhemoglobin 99.0 Carboxyhemoglobin 0.5 Methemoglobin 0.3 Reduced Hemoglobin 0.2 Total Hemoglobin 12.8 O2 Delivery Device Ventilator O2 Liters/Min Not Reportable Minute Volume Not Reportable Vent Rate 16 Vent Mode Cmv FiO2 70 Tidal Volume 500 PEEP 5 Peak Inspir Pressure Not Reportable Pressure Support Not Reportable Sodium Potassium Chloride Carbon Dioxide Anion Gap BUN Creatinine Estim Creat Clear Calc Estimated GFR Glucose Calcium Phosphorus Magnesium Total Bilirubin AST ALT Alkaline Phosphatase Troponin I 0.016 D Total Protein Albumin Lipase Nasal MRSA (PCR) Not detected Urine Opiates Screen Negative Urine Methadone Screen Negative Ur Barbiturates Screen Negative Ur Phencyclidine Scrn Negative Ur Amphetamine Screen Negative U Benzodiazepines Scrn Positive A Urine Cocaine Screen Negative U Cannabinoids Screen Negative Ethyl Alcohol < 10 Influenza A (RT-PCR) Negative Influenza B (RT-PCR) Negative RSV (RT-PCR) Negative SARS-CoV-2 RNA (RT-PCR) Negative 07/16/25 07/16/25 07/16/25 04:09 05:02 05:43 WBC 13.7 H RBC 4.05 L Hgb 11.8 L Hct 37.7 L MCV 93.1 MCH 29.1 MCHC 31.3 L RDW 16.2 H Plt Count 163 MPV 9.3 Immature Gran % (Auto) 0.6 H Neut % (Auto) 92.4 H Lymph % (Auto) 3.1 L Dawson % (Auto) 3.8 Eos % (Auto) 0.0 Baso % (Auto) 0.1 L Lymph # (Auto) 0.42 L Dawson # (Auto) 0.5 Eos # (Auto) 0.0 Baso # (Auto) 0.0 Abs Immat Gran (auto) 0.08 H Absolute Neuts (auto) 12.6 H Absolute Nucleated RBC 0.000 Band Neutrophils % Not Reportable Nucleated RBC % 0.0 Platelet Estimate Adequate Anisocytosis 1+ Ovalocytes Occasional Schistocytes None seen PT INR APTT 91.3 H Puncture Site Right radial ABG pH 7.387 ABG pCO2 42.8 ABG pO2 141.8 H ABG PO2/FiO2 Ratio 3.55 ABG HCO3 25.2 ABG O2 Saturation 98.8 ABG O2 Content 18.3 ABG Base Excess 0.0 A-a Gradient 94.2 Oxyhemoglobin 98.0 Carboxyhemoglobin 0.4 Methemoglobin 0.4 Reduced Hemoglobin 1.2 Total Hemoglobin 13.1 O2 Delivery Device Ventilator O2 Liters/Min Not Reportable Minute Volume Not Reportable Vent Rate 16 Vent Mode Cmv FiO2 40 Tidal Volume 500 PEEP 5 Peak Inspir Pressure Not Reportable Pressure Support Not Reportable Sodium 132 L Potassium 4.2 Chloride 98 Carbon Dioxide 23 Anion Gap 11 BUN 25 H Creatinine 0.70 Estim Creat Clear Calc 80 Estimated GFR > 60 Glucose 224 H Calcium 8.4 Phosphorus 3.6 Magnesium 1.5 L Total Bilirubin 1.0 AST 74 H ALT 51 H Alkaline Phosphatase 68 Troponin I Cancelled 0.030 D Total Protein 6.9 Albumin 3.9 Lipase Nasal MRSA (PCR) Urine Opiates Screen Urine Methadone Screen Ur Barbiturates Screen Ur Phencyclidine Scrn Ur Amphetamine Screen U Benzodiazepines Scrn Urine Cocaine Screen U Cannabinoids Screen Ethyl Alcohol Influenza A (RT-PCR) Influenza B (RT-PCR) RSV (RT-PCR) SARS-CoV-2 RNA (RT-PCR)
--- NOTE | 2025-07-16 08:43 | WPDCNINT ---
Assessment and Plan Assessment and plan (1) Respiratory failure with hypoxia and hypercapnia: Code(s): J96.91 - Respiratory failure, unspecified with hypoxia; J96.92 - Respiratory failure, unspecified with hypercapnia Status: Acute Assessment and Plan: Multifactorial acute on chronic respiratory failure secondary to acute exacerbation of COPD, left pneumothorax and AFib with RVR Patient now intubated and sedated Vent settings reviewed and I have increase the backup rate to 20 Left pneumothorax Status post chest tube placement which is to suction and there is no air leak at this time Empiric Levaquin for COPD exacerbation. No significant consolidation on infiltrates on the CT scan to suggest pneumonia., will check blood cultures Viral panel was negative Continue steroids and bronchodilators CT scan and chest x-ray reviewed Sedated with Versed fentanyl and propofol at this time (2) Acute exacerbation of chronic obstructive pulmonary disease: Code(s): J44.1 - Chronic obstructive pulmonary disease with (acute) exacerbation Status: Acute (3) Pneumothorax, left: Code(s): J93.9 - Pneumothorax, unspecified Status: Acute (4) Alcohol abuse: Code(s): F10.10 - Alcohol abuse, uncomplicated Status: Acute Assessment and Plan: Currently sedated with propofol and Versed. Add thiamine and folic acid (5) Hypertension: Code(s): I10 - Essential (primary) hypertension Status: Acute Assessment and Plan: Monitor at this time. Patient is sedated and on to Cardizem infusion. Hold other antihypertensives (6) Atrial fibrillation with rapid ventricular response: Code(s): I48.91 - Unspecified atrial fibrillation Status: Acute Assessment and Plan: AFib with RVR. Improved with Cardizem infusion. Continue at this time as long as blood pressure tolerates. Check echocardiogram. Switch heparin to Lovenox. (7) Cardiomyopathy: Qualifiers: Cardiomyopathy type: unspecified Qualified Code(s): I42.9 - Cardiomyopathy, unspecified Code(s): I42.9 - Cardiomyopathy, unspecified Status: Acute Assessment and Plan: Check echocardiogram. (8) Electrolyte abnormality: Code(s): E87.8 - Other disorders of electrolyte and fluid balance, not elsewhere classified Status: Acute Assessment and Plan: Magnesium replacement ordered Plan DVT prophylaxis -start Lovenox therapeutic Stress ulcer prophylaxis -PPI Nutrition -start Tube Feeds Code Status - Full Code Total Critical Care Time - 40 minutes Due to a high probability of clinically significant, life threatening deterioration, the patient required my highest level of preparedness to intervene emergently and I personally spent this critical care time directly and personally managing the patient. This critical care time included obtaining a history; examining the patient; pulse oximetry; ordering and review of studies; arranging urgent treatment with development of a management plan; evaluation of patient's response to treatment; frequent reassessment; and discussions with other providers. It was exclusive of separately billable procedures and treating other patients and teaching time. Please see Assessment and Plan section and the rest of the note for further information on patient assessment and treatment Inspector Technician Consult Note Consult date: 07/16/25 Reason for consult: Acute respiratory failure HPI: Javad Gant is a 65 year old male with past medical history of COPD secondary to smoking, alcohol abuse, fentanyl abuse, AFib on Xarelto and metoprolol but noncompliant, cardiomyopathy, history of UTI, hypertension, presented to ER 07/15/2025 with chief complaint of shortness of breath. Apparently he had called EMS several times in the past few days with similar symptom but refused to be transferred to the hospital. EMS finally t brought him last night and patient was in respiratory distress with hypoxia. Iin the ER patient was given albuterol, ipratropium, magnesium, Solu-Medrol and placed on BiPAP with significant improvement initial. Patient noted to be in AFib with RVR with heart rate 150-180. He was ready to check out of the ER in spite of being told to stay. Patient also thought he was going through opiate and alcohol withdrawal. IV buprenorphine administered to the base. Patient was started on Cardizem and heparin infusion. Patient was also given fluid bolus in the ER patient respiratory status continued to deteriorate further. Patient was intubated. In left subclavian central catheter was placed difficulty. Imaging showed patient had large pneumothorax on the left. A chest tube was inserted in the left side. Chest CTA was done which shows severe COPD with no significant pneumonia and a left pneumothorax Initial ABG showed pH 7.00, pCO2 100, tidal volume increased to 500. Labs showed white count 14.7, hemoglobin 13.9, platelets 209, sodium 136, BUN 19, serum creatinine 0.72, AST 73, troponin 0.022. Patient admitted to ICU. In ICU patient was sedated with Versed and fentanyl and still not adequately sedated. He was in AFib with RVR. Tachypneic. Patient was started on propofol and restarted on diltiazem infusion. This time in eyes evaluate the patient he is sedated intubated unable to provide any further history Review of Systems Review of Systems: ROS unobtainable: Yes unobtainable due to endotracheal tube, unobtainable due to medical condition and unobtainable due to mental status PMFSH Past Medical History Medical History BPH (benign prostatic hyperplasia) Tobacco abuse disorder Cardiomyopathy Mitral regurgitation Opioid abuse Alcohol abuse Atrial fibrillation COPD (chronic obstructive pulmonary disease) Surgical History Surgical History History of hernia surgery Family History Family History Father Diabetes mellitus Hypertension Acute myocardial infarction Sibling Family history of alcoholism Mother Dementia Social History Social History Social History: The patient lives with his mother. 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 He smoked a pack of cigarettes per day since he was a teenager. He has had difficulty with alcohol dependence since he was young. He reports that he was in recovery for 20 years but started drinking again within the last year. He reports that he was on Suboxone but her started using fentanyl again October 2024. Code status: Full code Surrogate decision maker: Mother Smoking packs per day: 1 Smoking cigarettes per day: 20.0 Years smoked: 20 Smoking pack-years: 20.00 Smoking status: Heavy tobacco smoker Tobacco type: cigarettes Alcohol intake: current Drinks per week: 119 Substance use: current Substance use type: other Other substance usage details: fentanyl Last use: 07/15/2025 Do You Feel Safe in your Home?: Yes Lack of Transportation: No Lack of Food: Never True Current Housing: I Have Housing Concerned About Future Housing: No Difficulty Paying Gas/Electric Bills: No Difficulty Paying for Meds: No Currently Unemployed: No Education: High School Diploma/GED Difficulty w/ Childcare or Family Care: No Spiritual care concerns: No Meds Home Medications and Allergies Home Medications ?Medication ?Instructions ?Recorded ?Confirmed ?Type No Home Medications 07/16/25 07/16/25 History Allergies Allergy/AdvReac Type Severity Reaction Status Date / Time latex Allergy Unknown Hives Verified 07/16/25 01:26 DIRECTOR OF DIGITAL TECHNOLOGY Vital Signs Vital Signs - 24 hr 07/15/25 20:52 07/15/25 20:55 07/15/25 21:03 Temperature 36.4 C L Pulse Rate 141 H 145 H 145 H Respiratory Rate 15 19 19 Blood Pressure 141/106 H Pulse Oximetry 98 97 100 Oxygen Delivery BiPAP BiPAP BiPAP Fraction of Inspired Oxygen 50 07/15/25 21:04 07/15/25 21:04 07/15/25 21:14 Temperature Pulse Rate 145 H Respiratory Rate 19 Blood Pressure Pulse Oximetry 100 Oxygen Delivery BiPAP BiPAP Fraction of Inspired Oxygen 07/15/25 22:00 07/15/25 22:10 07/15/25 22:15 Temperature Pulse Rate 149 H 145 H 142 H Respiratory Rate 33 H 33 H Blood Pressure 160/91 H Pulse Oximetry 100 100 Oxygen Delivery Mechanical Ventilation Fraction of Inspired Oxygen 100 07/15/25 22:16 07/15/25 22:17 07/15/25 22:26 Temperature Pulse Rate 147 H 140 H 163 H Respiratory Rate 33 H 31 H 17 Blood Pressure 159/120 H 165/111 H Pulse Oximetry 100 100 Oxygen Delivery Fraction of Inspired Oxygen 07/15/25 22:30 07/15/25 22:53 07/15/25 22:56 Temperature Pulse Rate 165 H 141 H 124 H Respiratory Rate 16 16 16 Blood Pressure 150/97 H Pulse Oximetry 100 100 100 Oxygen Delivery Fraction of Inspired Oxygen 07/15/25 22:58 07/15/25 22:59 07/15/25 23:00 Temperature 35.8 C L Pulse Rate 123 H 114 H 123 H Respiratory Rate 16 16 Blood Pressure Pulse Oximetry Oxygen Delivery Fraction of Inspired Oxygen 07/15/25 23:01 07/15/25 23:24 07/15/25 23:25 Temperature 35.9 C L 36.5 C 36.6 C Pulse Rate 108 H 117 H 118 H Respiratory Rate 16 16 16 Blood Pressure 155/94 H 147/104 H Pulse Oximetry 99 100 Oxygen Delivery Fraction of Inspired Oxygen 07/15/25 23:33 07/15/25 23:36 07/15/25 23:41 Temperature 36.6 C 36.6 C 36.6 C Pulse Rate 113 H 113 H 117 H Respiratory Rate 17 16 16 Blood Pressure 148/92 H 152/97 H Pulse Oximetry 100 99 99 Oxygen Delivery Fraction of Inspired Oxygen 07/15/25 23:45 07/15/25 23:46 07/15/25 23:55 Temperature 36.5 C 36.6 C Pulse Rate 114 H 128 H 109 H Respiratory Rate 16 14 Blood Pressure 140/90 Pulse Oximetry 99 99 98 Oxygen Delivery Mechanical Ventilation Fraction of Inspired Oxygen 100 07/15/25 23:56 07/16/25 00:00 07/16/25 00:01 Temperature 36.5 C 36.5 C 36.5 C Pulse Rate 116 H 105 H 107 H Respiratory Rate 14 19 19 Blood Pressure 133/90 130/88 Pulse Oximetry 99 99 99 Oxygen Delivery Fraction of Inspired Oxygen 07/16/25 00:14 07/16/25 00:21 07/16/25 00:22 Temperature 36.3 C L 36.3 C L Pulse Rate 112 H 130 H 124 H Respiratory Rate 26 H 23 H 24 H Blood Pressure 99/72 L Pulse Oximetry 100 100 Oxygen Delivery Fraction of Inspired Oxygen 07/16/25 00:26 07/16/25 00:30 07/16/25 00:31 Temperature 36.3 C L 36.2 C L 36.2 C L Pulse Rate 109 H 121 H 111 H Respiratory Rate 24 H 25 H 29 H Blood Pressure 94/66 L 79/65 L Pulse Oximetry Oxygen Delivery Fraction of Inspired Oxygen 07/16/25 00:40 07/16/25 00:59 07/16/25 01:00 CDT Temperature Pulse Rate 102 H 105 H 98 Respiratory Rate 15 24 H Blood Pressure Pulse Oximetry Oxygen Delivery Fraction of Inspired Oxygen 07/16/25 01:42 CDT 07/16/25 01:45 CDT 07/16/25 01:00 DIRECTOR OF DIGITAL TECHNOLOGY Temperature Pulse Rate 99 104 H 105 H Respiratory Rate 16 20 Blood Pressure 88/63 L 95/62 L Pulse Oximetry Oxygen Delivery Fraction of Inspired Oxygen 07/16/25 01:00 DIRECTOR OF DIGITAL TECHNOLOGY 07/16/25 01:15 DIRECTOR OF DIGITAL TECHNOLOGY 07/16/25 01:30 DIRECTOR OF DIGITAL TECHNOLOGY Temperature 36.2 C L 36.3 C L Pulse Rate 105 H 106 H 102 H Respiratory Rate 20 16 17 Blood Pressure 103/68 112/71 Pulse Oximetry 100 100 Oxygen Delivery Fraction of Inspired Oxygen 07/16/25 01:38 DIRECTOR OF DIGITAL TECHNOLOGY 07/16/25 01:39 DIRECTOR OF DIGITAL TECHNOLOGY 07/16/25 01:45 DIRECTOR OF DIGITAL TECHNOLOGY Temperature 36.4 C Pulse Rate 112 H 103 H 108 H Respiratory Rate 22 H 24 H Blood Pressure 115/74 Pulse Oximetry 100 100 Oxygen Delivery Mechanical Ventilation Fraction of Inspired Oxygen 70 07/16/25 02:00 07/16/25 02:00 07/16/25 02:00 Temperature 36.6 C Pulse Rate 103 H 103 H 103 H Respiratory Rate 23 H 23 H Blood Pressure 115/71 Pulse Oximetry 100 Oxygen Delivery Fraction of Inspired Oxygen 07/16/25 02:00 07/16/25 02:19 07/16/25 02:47 Temperature Pulse Rate 103 H 112 H 120 H Respiratory Rate 23 H 25 H 22 H Blood Pressure Pulse Oximetry Oxygen Delivery Fraction of Inspired Oxygen 07/16/25 03:00 07/16/25 04:00 07/16/25 04:00 Temperature 37.3 C Pulse Rate 112 H 122 H 122 H Respiratory Rate 24 H 24 H 24 H Blood Pressure 116/88 Pulse Oximetry 100 Oxygen Delivery Fraction of Inspired Oxygen 07/16/25 04:00 07/16/25 04:00 07/16/25 04:00 Temperature 37.6 C H Pulse Rate 128 H Respiratory Rate 25 H Blood Pressure 132/100 H Pulse Oximetry 100 100 Oxygen Delivery Mechanical Ventilation Fraction of Inspired Oxygen 40 40 07/16/25 04:00 07/16/25 04:15 07/16/25 04:22 Temperature Pulse Rate 116 H 130 H 136 H Respiratory Rate 28 H 34 H Blood Pressure 140/98 H Pulse Oximetry Oxygen Delivery Fraction of Inspired Oxygen 07/16/25 05:00 07/16/25 05:05 07/16/25 05:15 Temperature 37.8 C H Pulse Rate 131 H 132 H 147 H Respiratory Rate 34 H 29 H Blood Pressure 144/91 H 161/107 H Pulse Oximetry 100 100 Oxygen Delivery Mechanical Ventilation Fraction of Inspired Oxygen 40 07/16/25 05:30 07/16/25 05:40 07/16/25 05:45 Temperature Pulse Rate 136 H 138 H 133 H Respiratory Rate 23 H Blood Pressure 157/97 H 135/82 Pulse Oximetry Oxygen Delivery Fraction of Inspired Oxygen 07/16/25 06:00 07/16/25 06:00 07/16/25 06:00 Temperature Pulse Rate 130 H 130 H 130 H Respiratory Rate 22 H 22 H Blood Pressure 139/85 Pulse Oximetry Oxygen Delivery Fraction of Inspired Oxygen 07/16/25 06:00 07/16/25 06:00 07/16/25 06:00 Temperature 37.9 C H Pulse Rate 130 H 130 H 130 H Respiratory Rate 22 H 22 H Blood Pressure 139/85 Pulse Oximetry 99 Oxygen Delivery Fraction of Inspired Oxygen 07/16/25 07:00 07/16/25 07:05 07/16/25 07:11 Temperature 37.9 C H Pulse Rate 132 H 125 H 122 H Respiratory Rate 37 H 23 H Blood Pressure 144/94 H Pulse Oximetry 99 99 Oxygen Delivery Mechanical Ventilation Fraction of Inspired Oxygen 30 07/16/25 07:25 07/16/25 07:25 07/16/25 07:27 Temperature Pulse Rate 130 H 130 H 124 H Respiratory Rate 25 H 25 H 37 H Blood Pressure Pulse Oximetry Oxygen Delivery Fraction of Inspired Oxygen 07/16/25 07:37 Temperature 37.9 C H Pulse Rate 126 H Respiratory Rate 22 H Blood Pressure 148/99 H Pulse Oximetry 98 Oxygen Delivery Fraction of Inspired Oxygen Exam Narrative: General: Pt is sedated, intubated and on mechanical ventilation Lungs/Chest: Trachea central decreased breath sounds bilaterally. No wheezing or crackles heard Cardiac: Irregularly irregular tachycardic. Normal S1 S2. No murmurs Circulation: Pedal pulses are intact and symmetrical. Abdomen: Decreased bowel sounds. Soft. NT. ND. Extremities: No clubbing, cyanosis or edema. Warm : Lau in place Neurologic: Unable to assess due to sedation. Pupil slightly unequal with left slightly bigger than right of both are reactive to light Results Labs 07/16/25 04:09 07/16/25 05:43 Labs: Short CBC 07/15/25 07/16/25 07/16/25 Range/Units 21:11 00:41 04:09 WBC 12.2 H 14.7 H 13.7 H (4.5-10.0) K/mm3 Hgb 14.9 D 13.9 L 11.8 L (14.0-18.0) g/dL Hct 47.9 45.5 37.7 L (42.0-52.0) % Plt Count 209 216 163 (150-375) k/mm3 BMP 07/15/25 07/16/25 21:11 05:43 Sodium 136 L 132 L Potassium 4.6 4.2 Chloride 99 98 Carbon Dioxide 25 23 BUN 19 D 25 H Creatinine 0.72 0.70 Glucose 86 224 H Calcium 9.0 8.4 Cardiac Enzymes 07/15/25 07/16/25 07/16/25 Range/Units 21:11 01:52 DIRECTOR OF DIGITAL TECHNOLOGY 04:09 Troponin I 0.022 0.016 D Cancelled (0.000-0.034) ng/mL 07/16/25 Range/Units 05:43 Troponin I 0.030 D (0.000-0.034) ng/mL Liver Function 07/15/25 07/16/25 Range/Units 21:11 05:43 Total Bilirubin 0.9 1.0 (0.2-1.3) mg/dL AST 73 H 74 H (17-59) U/L ALT 39 51 H (6-50) U/L Alkaline Phosphatase 83 68 (38-126) U/L Albumin 4.6 3.9 (3.5-5.1) g/dL Quality VTE Prophylaxis VTE prophylaxis: pharmacologic ordered Hospitalist MIPS Advance Care Plan I have confirmed that the patient's Advanced Care Plan is present, code status is documented, or surrogate decision maker is listed in patient medical record.: Yes Medication Reconciliation I have utilized all available resources to obtain, update and review the patients current medications (includes all prescriptions, OTC, herbals, cannabis, and nutritional supplements).: Yes
[2025-07-16] MEDS: MAGNESIUM SULF 2 GM/WATER 50ML 2 GM/50 ML BAG IVPB (09:15)
[2025-07-16] MEDS: PANTOPRAZOLE SODIUM IV 40 MG VIAL IV PUSH (09:15)
[2025-07-16] MEDS: ENOXAPARIN 80 MG/0.8 ML SYRINGE 65 MG SUB-Q ×2 (09:15→20:04)
[2025-07-16 10:00] LABS: Add Urine Microscopic? YES; Appearance Urine Turbid (Clear); Glucose Urine UA 2+ mg/dL (Negative); Leukocyte Esterase Ur 2+ LEU/UL (Negative); Need Manual Microscopic Reviewed; Nitrate Urine Positive (Negative); Specific Grav Ur 1.044 (1.001-1.035)
[2025-07-16] MEDS: FOLIC ACID 1 MG TABLET FEED TUBE (10:39)
[2025-07-16] MEDS: THIAMINE HCL 100 MG TABLET FEED TUBE (10:39)
[2025-07-16] MEDS: cefTRIAXone 2 GM in SODIUM CHLORIDE 0.9% IV 100 ML 200 ML IVPB (11:29)
--- NOTE | 2025-07-16 11:54 | PM.CNGS ---
Assessment and Plan Assessment and plan (1) Pneumothorax, left: Code(s): J93.9 - Pneumothorax, unspecified Status: Acute Assessment and Plan: Chest tube in good position, lung appears fully respond expanded to me. O2 saturations on the ventilator with FiO2 of 30% looked very good. No pleural leaks seen. Continue chest tube to Pleur-evac suction. Follow chest x-ray and clinical eval daily. (2) Respiratory failure with hypoxia and hypercapnia: Qualifiers: Chronicity: acute Qualified Code(s): J96.01 - Acute respiratory failure with hypoxia; J96.02 - Acute respiratory failure with hypercapnia Code(s): J96.91 - Respiratory failure, unspecified with hypoxia; J96.92 - Respiratory failure, unspecified with hypercapnia Status: Acute (3) COPD (chronic obstructive pulmonary disease): Qualifiers: COPD type: emphysema Emphysema type: unspecified Qualified Code(s): J43.9 - Emphysema, unspecified Code(s): J44.9 - Chronic obstructive pulmonary disease, unspecified Status: Chronic (4) Sepsis: Qualifiers: Sepsis acute organ dysfunction status: without acute organ dysfunction Sepsis type: sepsis due to unspecified organism Qualified Code(s): A41.9 - Sepsis, unspecified organism Code(s): A41.9 - Sepsis, unspecified organism Status: Acute Assessment and Plan: Urinary source appears likely. Cultures are pending. (5) Atrial fibrillation with rapid ventricular response: Code(s): I48.91 - Unspecified atrial fibrillation Status: Acute Assessment and Plan: Improved on diltiazem drip (6) Polysubstance abuse: Code(s): F19.10 - Other psychoactive substance abuse, uncomplicated Status: Chronic Assessment and Plan: Noncompliance with treatment of his medical illnesses as well. History of Present Illness Consult details Consult date: 07/16/25 Reason for consult: chest tube Requesting physician: Meek Lucas MD Narrative: Patient completely obtunded with sedation on mechanical ventilator. History comes from the electronic health record as well as my conversation with the emergency room physician early this morning. Patient is a 65-year-old man with known bullous emphysema, chronic AFib, anticoagulation, polysubstance abuse, noncompliance. He came to the emergency room last night by ambulance with acute respiratory distress. In the emergency room he was thrashing and struggling to breathe. He was on some BiPAP but eventually had to be intubated. Central line was placed. He had a CTA to evaluate for pulmonary embolism. This was negative but did show a left pneumothorax. A left chest tube was placed with re-expansion of the lung. Patient had a very suspicious urinalysis for urinary tract infection as the cause of his sepsis. He is currently intubated in the intensive care unit and receiving IV Levaquin and Rocephin. He is also on a therapeutic dose of Lovenox, a diltiazem drip for his rapid atrial fibrillation, as well as steroids. He is seen now in consultation for any treatment of this of pneumothorax and chest tube. Chest x-ray this morning was read as severe emphysema and a tiny apical pneumothorax. By my review I did not see a pneumothorax. Review of Systems Review of Systems: ROS unobtainable: Yes unobtainable due to medical condition PMFSH Past Medical History Medical History BPH (benign prostatic hyperplasia) Tobacco abuse disorder Cardiomyopathy Mitral regurgitation Opioid abuse Alcohol abuse Atrial fibrillation COPD (chronic obstructive pulmonary disease) Surgical History Surgical History History of hernia surgery Family History Family History Father Diabetes mellitus Hypertension Acute myocardial infarction Sibling Family history of alcoholism Mother Dementia Social History Social History Social History: The patient lives with his mother. 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 He smoked a pack of cigarettes per day since he was a teenager. He has had difficulty with alcohol dependence since he was young. He reports that he was in recovery for 20 years but started drinking again within the last year. He reports that he was on Suboxone but her started using fentanyl again October 2024. Code status: Full code Surrogate decision maker: Mother Smoking packs per day: 1 Smoking cigarettes per day: 20.0 Years smoked: 20 Smoking pack-years: 20.00 Smoking status: Heavy tobacco smoker Tobacco type: cigarettes Alcohol intake: current Drinks per week: 119 Substance use: current Substance use type: other Other substance usage details: fentanyl Last use: 07/15/2025 Do You Feel Safe in your Home?: Yes Lack of Transportation: No Lack of Food: Never True Current Housing: I Have Housing Concerned About Future Housing: No Difficulty Paying Gas/Electric Bills: No Difficulty Paying for Meds: No Currently Unemployed: No Education: High School Diploma/GED Difficulty w/ Childcare or Family Care: No Spiritual care concerns: No Meds Home Medications and Allergies Home Medications ?Medication ?Instructions ?Recorded ?Confirmed ?Type No Home Medications 07/16/25 07/16/25 History Allergies Allergy/AdvReac Type Severity Reaction Status Date / Time latex Allergy Unknown Hives Verified 07/16/25 01:26 HYDRAULIC PRESS IN OPERATOR Vital Signs Vital Signs - 24 hr 07/15/25 20:52 07/15/25 20:55 07/15/25 21:03 Temperature 36.4 C L Pulse Rate 141 H 145 H 145 H Respiratory Rate 15 19 19 Blood Pressure 141/106 H Pulse Oximetry 98 97 100 Oxygen Delivery BiPAP BiPAP BiPAP Fraction of Inspired Oxygen 50 07/15/25 21:04 07/15/25 21:04 07/15/25 21:14 Temperature Pulse Rate 145 H Respiratory Rate 19 Blood Pressure Pulse Oximetry 100 Oxygen Delivery BiPAP BiPAP Fraction of Inspired Oxygen 07/15/25 22:00 07/15/25 22:10 07/15/25 22:15 Temperature Pulse Rate 149 H 145 H 142 H Respiratory Rate 33 H 33 H Blood Pressure 160/91 H Pulse Oximetry 100 100 Oxygen Delivery Mechanical Ventilation Fraction of Inspired Oxygen 100 07/15/25 22:16 07/15/25 22:17 07/15/25 22:26 Temperature Pulse Rate 147 H 140 H 163 H Respiratory Rate 33 H 31 H 17 Blood Pressure 159/120 H 165/111 H Pulse Oximetry 100 100 Oxygen Delivery Fraction of Inspired Oxygen 07/15/25 22:30 07/15/25 22:53 07/15/25 22:56 Temperature Pulse Rate 165 H 141 H 124 H Respiratory Rate 16 16 16 Blood Pressure 150/97 H Pulse Oximetry 100 100 100 Oxygen Delivery Fraction of Inspired Oxygen 07/15/25 22:58 07/15/25 22:59 07/15/25 23:00 Temperature 35.8 C L Pulse Rate 123 H 114 H 123 H Respiratory Rate 16 16 Blood Pressure Pulse Oximetry Oxygen Delivery Fraction of Inspired Oxygen 07/15/25 23:01 07/15/25 23:24 07/15/25 23:25 Temperature 35.9 C L 36.5 C 36.6 C Pulse Rate 108 H 117 H 118 H Respiratory Rate 16 16 16 Blood Pressure 155/94 H 147/104 H Pulse Oximetry 99 100 Oxygen Delivery Fraction of Inspired Oxygen 07/15/25 23:33 07/15/25 23:36 07/15/25 23:41 Temperature 36.6 C 36.6 C 36.6 C Pulse Rate 113 H 113 H 117 H Respiratory Rate 17 16 16 Blood Pressure 148/92 H 152/97 H Pulse Oximetry 100 99 99 Oxygen Delivery Fraction of Inspired Oxygen 07/15/25 23:45 07/15/25 23:46 07/15/25 23:55 Temperature 36.5 C 36.6 C Pulse Rate 114 H 128 H 109 H Respiratory Rate 16 14 Blood Pressure 140/90 Pulse Oximetry 99 99 98 Oxygen Delivery Mechanical Ventilation Fraction of Inspired Oxygen 100 07/15/25 23:56 07/16/25 00:00 07/16/25 00:01 Temperature 36.5 C 36.5 C 36.5 C Pulse Rate 116 H 105 H 107 H Respiratory Rate 14 19 19 Blood Pressure 133/90 130/88 Pulse Oximetry 99 99 99 Oxygen Delivery Fraction of Inspired Oxygen 07/16/25 00:14 07/16/25 00:21 07/16/25 00:22 Temperature 36.3 C L 36.3 C L Pulse Rate 112 H 130 H 124 H Respiratory Rate 26 H 23 H 24 H Blood Pressure 99/72 L Pulse Oximetry 100 100 Oxygen Delivery Fraction of Inspired Oxygen 07/16/25 00:26 07/16/25 00:30 07/16/25 00:31 Temperature 36.3 C L 36.2 C L 36.2 C L Pulse Rate 109 H 121 H 111 H Respiratory Rate 24 H 25 H 29 H Blood Pressure 94/66 L 79/65 L Pulse Oximetry Oxygen Delivery Fraction of Inspired Oxygen 07/16/25 00:40 07/16/25 00:59 07/16/25 01:00 CDT Temperature Pulse Rate 102 H 105 H 98 Respiratory Rate 15 24 H Blood Pressure Pulse Oximetry Oxygen Delivery Fraction of Inspired Oxygen 07/16/25 01:42 CDT 07/16/25 01:45 CDT 07/16/25 01:00 HYDRAULIC PRESS IN OPERATOR Temperature Pulse Rate 99 104 H 105 H Respiratory Rate 16 20 Blood Pressure 88/63 L 95/62 L Pulse Oximetry Oxygen Delivery Fraction of Inspired Oxygen 07/16/25 01:00 HYDRAULIC PRESS IN OPERATOR 07/16/25 01:15 HYDRAULIC PRESS IN OPERATOR 07/16/25 01:30 HYDRAULIC PRESS IN OPERATOR Temperature 36.2 C L 36.3 C L Pulse Rate 105 H 106 H 102 H Respiratory Rate 20 16 17 Blood Pressure 103/68 112/71 Pulse Oximetry 100 100 Oxygen Delivery Fraction of Inspired Oxygen 07/16/25 01:38 HYDRAULIC PRESS IN OPERATOR 07/16/25 01:39 HYDRAULIC PRESS IN OPERATOR 07/16/25 01:45 HYDRAULIC PRESS IN OPERATOR Temperature 36.4 C Pulse Rate 112 H 103 H 108 H Respiratory Rate 22 H 24 H Blood Pressure 115/74 Pulse Oximetry 100 100 Oxygen Delivery Mechanical Ventilation Fraction of Inspired Oxygen 70 07/16/25 02:00 07/16/25 02:00 07/16/25 02:00 Temperature 36.6 C Pulse Rate 103 H 103 H 103 H Respiratory Rate 23 H 23 H Blood Pressure 115/71 Pulse Oximetry 100 Oxygen Delivery Fraction of Inspired Oxygen 07/16/25 02:00 07/16/25 02:19 07/16/25 02:47 Temperature Pulse Rate 103 H 112 H 120 H Respiratory Rate 23 H 25 H 22 H Blood Pressure Pulse Oximetry Oxygen Delivery Fraction of Inspired Oxygen 07/16/25 03:00 07/16/25 04:00 07/16/25 04:00 Temperature 37.3 C Pulse Rate 112 H 122 H 122 H Respiratory Rate 24 H 24 H 24 H Blood Pressure 116/88 Pulse Oximetry 100 Oxygen Delivery Fraction of Inspired Oxygen 07/16/25 04:00 07/16/25 04:00 07/16/25 04:00 Temperature 37.6 C H Pulse Rate 128 H Respiratory Rate 25 H Blood Pressure 132/100 H Pulse Oximetry 100 100 Oxygen Delivery Mechanical Ventilation Fraction of Inspired Oxygen 40 40 07/16/25 04:00 07/16/25 04:15 07/16/25 04:22 Temperature Pulse Rate 116 H 130 H 136 H Respiratory Rate 28 H 34 H Blood Pressure 140/98 H Pulse Oximetry Oxygen Delivery Fraction of Inspired Oxygen 07/16/25 05:00 07/16/25 05:05 07/16/25 05:15 Temperature 37.8 C H Pulse Rate 131 H 132 H 147 H Respiratory Rate 34 H 29 H Blood Pressure 144/91 H 161/107 H Pulse Oximetry 100 100 Oxygen Delivery Mechanical Ventilation Fraction of Inspired Oxygen 40 07/16/25 05:30 07/16/25 05:40 07/16/25 05:45 Temperature Pulse Rate 136 H 138 H 133 H Respiratory Rate 23 H Blood Pressure 157/97 H 135/82 Pulse Oximetry Oxygen Delivery Fraction of Inspired Oxygen 07/16/25 06:00 07/16/25 06:00 07/16/25 06:00 Temperature Pulse Rate 130 H 130 H 130 H Respiratory Rate 22 H 22 H Blood Pressure 139/85 Pulse Oximetry Oxygen Delivery Fraction of Inspired Oxygen 07/16/25 06:00 07/16/25 06:00 07/16/25 06:00 Temperature 37.9 C H Pulse Rate 130 H 130 H 130 H Respiratory Rate 22 H 22 H Blood Pressure 139/85 Pulse Oximetry 99 Oxygen Delivery Fraction of Inspired Oxygen 07/16/25 07:00 07/16/25 07:05 07/16/25 07:11 Temperature 37.9 C H Pulse Rate 132 H 125 H 122 H Respiratory Rate 37 H 23 H Blood Pressure 144/94 H Pulse Oximetry 99 99 Oxygen Delivery Mechanical Ventilation Fraction of Inspired Oxygen 30 07/16/25 07:25 07/16/25 07:25 07/16/25 07:27 Temperature Pulse Rate 130 H 130 H 124 H Respiratory Rate 25 H 25 H 37 H Blood Pressure Pulse Oximetry Oxygen Delivery Fraction of Inspired Oxygen 07/16/25 07:30 07/16/25 07:30 07/16/25 07:30 Temperature Pulse Rate 125 H 125 H 125 H Respiratory Rate 21 H Blood Pressure 139/99 H 139/99 H Pulse Oximetry Oxygen Delivery Fraction of Inspired Oxygen 07/16/25 07:37 07/16/25 08:00 07/16/25 08:00 Temperature 37.9 C H Pulse Rate 126 H Respiratory Rate 22 H Blood Pressure 148/99 H Pulse Oximetry 98 99 Oxygen Delivery Mechanical Ventilation Fraction of Inspired Oxygen 30 30 07/16/25 08:00 07/16/25 08:00 07/16/25 08:00 Temperature Pulse Rate 120 H 120 H 99 Respiratory Rate 22 H 22 H Blood Pressure Pulse Oximetry Oxygen Delivery Fraction of Inspired Oxygen 07/16/25 08:30 07/16/25 08:43 07/16/25 09:30 Temperature 38.0 C H Pulse Rate 102 H 100 103 H Respiratory Rate 23 H 24 H 20 Blood Pressure 108/77 Pulse Oximetry 98 Oxygen Delivery Fraction of Inspired Oxygen 07/16/25 09:30 07/16/25 10:00 07/16/25 10:00 Temperature Pulse Rate 98 88 91 Respiratory Rate 21 H Blood Pressure 105/78 Pulse Oximetry Oxygen Delivery Fraction of Inspired Oxygen 07/16/25 10:00 07/16/25 10:00 07/16/25 10:09 Temperature 37.9 C H Pulse Rate 90 91 101 H Respiratory Rate 21 H 26 H Blood Pressure 102/76 Pulse Oximetry 98 99 Oxygen Delivery Mechanical Ventilation Fraction of Inspired Oxygen 30 07/16/25 10:30 07/16/25 10:41 07/16/25 11:00 Temperature 37.9 C H Pulse Rate 92 90 93 Respiratory Rate 21 H 20 19 Blood Pressure 102/77 Pulse Oximetry 97 Oxygen Delivery Fraction of Inspired Oxygen 07/16/25 11:30 07/16/25 11:30 07/16/25 11:36 Temperature Pulse Rate 84 84 82 Respiratory Rate 21 H 19 Blood Pressure 101/73 Pulse Oximetry Oxygen Delivery Fraction of Inspired Oxygen Exam Const: General: thin Orientation/consciousness: patient obtunded HENMT: Head: normal to inspection, normocephalic and atraumatic Face/Nose/Sinus: Normal external nose present and Normal nares present Face and sinus: normal facial exam Mouth: Yes dry mucous membranes Neck: Neck: normal visual inspection and no lymphadenopathy Thyroid: thyroid normal Chest: Chest palpation & inspection: abnormal inspection of the chest (Left chest tube noted, no pleural leak seen, on suction) Resp: Effort & Inspection: other (On mechanical ventilator) Auscultation: crackles and rhonchi Cardio: Rate: tachycardic Rhythm: regular rhythm Heart sounds: no murmurs and no rubs GI: Inspection: non-distended GI Palp: Yes Soft to palpation and No Tenderness to palpation present (GI) Urinary Catheter: Urinary Catheter: patent and draining Skin: General skin exam: normal color and turgor normal Lesions: no lesions Rashes: no rashes Neuro: General: patient obtunded Extrem: General: capillary refill normal, no clubbing, cyanosis or edema and no pedal edema Psych: Mental Status: other (Sedated on ventilator) Results Labs 07/16/25 04:09 07/16/25 05:43 Labs: Abnormal lab results 07/15/25 07/15/25 07/16/25 Range/Units 21:11 23:50 00:41 WBC 12.2 H 14.7 H (4.5-10.0) K/mm3 RBC (4.6-6.20) M/mm3 Hgb 13.9 L (14.0-18.0) g/dL Hct (42.0-52.0) % MCHC 31.1 L 30.5 L (32-36) g/dl RDW 16.1 H 16.2 H (11.5-14.5) % Immature Gran % (Auto) 0.8 H (0-0.5) % Neut % (Auto) 88.1 H (45.5-73.1) % Lymph % (Auto) 8.3 L (18.3-44.2) % [place] % (Auto) 1.7 L (2.6-8.5) % Baso % (Auto) (0.2-1.2) % Lymph # (Auto) 3.56 H (0.9-3.2) K/mm3 [place] # (Auto) 1.0 H (0.1-0.6) K/mm3 Abs Immat Gran (auto) 0.05 H 0.12 H (0.00-0.031) K/mm3 Absolute Neuts (auto) 7.3 H 12.9 H (1.3-6.7) K/mm3 APTT (22.3-36.8) Seconds ABG pH 7.314 L 7.008 L* (7.350-7.450) ABG pCO2 103.9 H* (35.0-45.0) mmHg ABG pO2 140.2 H 489.5 H (80.0-100.0) mmHg ABG HCO3 20.1 L (22.0-26.0) mEq/l ABG O2 Content 22.2 H (16.0-22.0) %vol Sodium 136 L (137-145) mmol/L BUN (9-20) mg/dL Glucose (65-110) mg/dL Magnesium (1.6-2.3) mg/dL AST 73 H (17-59) U/L ALT (6-50) U/L Urine Appearance (Clear) Ur Specific [place] (1.001-1.035) Urine Protein (Negative) mg/dL Urine Glucose (UA) (Negative) mg/dL Urine Ketones (Negative) mg/dL Ur Blood (Man) (Negative) Urine Nitrate (Negative) Leukocyte Esterase Rfl (Negative) MEAGHAN/UL Urine RBC (0-2) /hpf Urine WBC (0-3) /hpf Uric Acid Crystals (None) /hpf Urine Bacteria /hpf U Benzodiazepines Scrn (Negative) 07/16/25 07/16/25 07/16/25 Range/Units 01:21 HYDRAULIC PRESS IN OPERATOR 01:43 HYDRAULIC PRESS IN OPERATOR 04:09 WBC 13.7 H (4.5-10.0) K/mm3 RBC 4.05 L (4.6-6.20) M/mm3 Hgb 11.8 L (14.0-18.0) g/dL Hct 37.7 L (42.0-52.0) % MCHC 31.3 L (32-36) g/dl RDW 16.2 H (11.5-14.5) % Immature Gran % (Auto) 0.6 H (0-0.5) % Neut % (Auto) 92.4 H (45.5-73.1) % Lymph % (Auto) 3.1 L (18.3-44.2) % [place] % (Auto) (2.6-8.5) % Baso % (Auto) 0.1 L (0.2-1.2) % Lymph # (Auto) 0.42 L (0.9-3.2) K/mm3 [place] # (Auto) (0.1-0.6) K/mm3 Abs Immat Gran (auto) 0.08 H (0.00-0.031) K/mm3 Absolute Neuts (auto) 12.6 H (1.3-6.7) K/mm3 APTT (22.3-36.8) Seconds ABG pH 7.290 L* (7.350-7.450) ABG pCO2 48.9 H (35.0-45.0) mmHg ABG pO2 349.8 H (80.0-100.0) mmHg ABG HCO3 (22.0-26.0) mEq/l ABG O2 Content (16.0-22.0) %vol Sodium (137-145) mmol/L BUN (9-20) mg/dL Glucose (65-110) mg/dL Magnesium (1.6-2.3) mg/dL AST (17-59) U/L ALT (6-50) U/L Urine Appearance (Clear) Ur Specific [place] (1.001-1.035) Urine Protein (Negative) mg/dL Urine Glucose (UA) (Negative) mg/dL Urine Ketones (Negative) mg/dL Ur Blood (Man) (Negative) Urine Nitrate (Negative) Leukocyte Esterase Rfl (Negative) MEAGHAN/UL Urine RBC (0-2) /hpf Urine WBC (0-3) /hpf Uric Acid Crystals (None) /hpf Urine Bacteria /hpf U Benzodiazepines Scrn Positive A (Negative) 07/16/25 07/16/25 07/16/25 Range/Units 05:02 05:43 09:32 WBC (4.5-10.0) K/mm3 RBC (4.6-6.20) M/mm3 Hgb (14.0-18.0) g/dL Hct (42.0-52.0) % MCHC (32-36) g/dl RDW (11.5-14.5) % Immature Gran % (Auto) (0-0.5) % Neut % (Auto) (45.5-73.1) % Lymph % (Auto) (18.3-44.2) % [place] % (Auto) (2.6-8.5) % Baso % (Auto) (0.2-1.2) % Lymph # (Auto) (0.9-3.2) K/mm3 [place] # (Auto) (0.1-0.6) K/mm3 Abs Immat Gran (auto) (0.00-0.031) K/mm3 Absolute Neuts (auto) (1.3-6.7) K/mm3 APTT 91.3 H (22.3-36.8) Seconds ABG pH (7.350-7.450) ABG pCO2 (35.0-45.0) mmHg ABG pO2 141.8 H (80.0-100.0) mmHg ABG HCO3 (22.0-26.0) mEq/l ABG O2 Content (16.0-22.0) %vol Sodium 132 L (137-145) mmol/L BUN 25 H (9-20) mg/dL Glucose 224 H (65-110) mg/dL Magnesium 1.5 L (1.6-2.3) mg/dL AST 74 H (17-59) U/L ALT 51 H (6-50) U/L Urine Appearance Turbid H (Clear) Ur Specific [place] 1.044 H (1.001-1.035) Urine Protein 1+ H (Negative) mg/dL Urine Glucose (UA) 2+ H (Negative) mg/dL Urine Ketones Trace H (Negative) mg/dL Ur Blood (Man) 3+ H (Negative) Urine Nitrate Positive H (Negative) Leukocyte Esterase Rfl 2+ H (Negative) MEAGHAN/UL Urine RBC >100 H (0-2) /hpf Urine WBC >100 H (0-3) /hpf Uric Acid Crystals Present H (None) /hpf Urine Bacteria 4+ H /hpf U Benzodiazepines Scrn (Negative) Diabetes panel 07/15/25 07/16/25 Range/Units 21:11 05:43 Sodium 136 L 132 L (137-145) mmol/L Potassium 4.6 4.2 (3.4-5.0) mmol/L Chloride 99 98 (98-107) mmol/L Carbon Dioxide 25 23 (22-30) mmol/L BUN 19 D 25 H (9-20) mg/dL Creatinine 0.72 0.70 (0.7-1.3) mg/dL Glucose 86 224 H (65-110) mg/dL Calcium 9.0 8.4 (8.4-10.2) mg/dL AST 73 H 74 H (17-59) U/L ALT 39 51 H (6-50) U/L Alkaline Phosphatase 83 68 (38-126) U/L Total Protein 8.2 6.9 (6.3-8.2) g/dL Albumin 4.6 3.9 (3.5-5.1) g/dL Calcium panel 07/15/25 07/16/25 Range/Units 21:11 05:43 Calcium 9.0 8.4 (8.4-10.2) mg/dL Phosphorus 3.6 (2.5-4.5) mg/dL Albumin 4.6 3.9 (3.5-5.1) g/dL Pituitary panel 07/15/25 07/16/25 Range/Units 21:11 05:43 Sodium 136 L 132 L (137-145) mmol/L Potassium 4.6 4.2 (3.4-5.0) mmol/L Chloride 99 98 (98-107) mmol/L Carbon Dioxide 25 23 (22-30) mmol/L BUN 19 D 25 H (9-20) mg/dL Creatinine 0.72 0.70 (0.7-1.3) mg/dL Glucose 86 224 H (65-110) mg/dL Calcium 9.0 8.4 (8.4-10.2) mg/dL Adrenal panel 07/15/25 07/16/25 Range/Units 21:11 05:43 Sodium 136 L 132 L (137-145) mmol/L Potassium 4.6 4.2 (3.4-5.0) mmol/L Chloride 99 98 (98-107) mmol/L Carbon Dioxide 25 23 (22-30) mmol/L BUN 19 D 25 H (9-20) mg/dL Creatinine 0.72 0.70 (0.7-1.3) mg/dL Glucose 86 224 H (65-110) mg/dL Calcium 9.0 8.4 (8.4-10.2) mg/dL Total Bilirubin 0.9 1.0 (0.2-1.3) mg/dL AST 73 H 74 H (17-59) U/L ALT 39 51 H (6-50) U/L Alkaline Phosphatase 83 68 (38-126) U/L Total Protein 8.2 6.9 (6.3-8.2) g/dL Albumin 4.6 3.9 (3.5-5.1) g/dL All other labs normal. Imaging Chest x-ray: report reviewed and image reviewed (Left chest tube in good position, no pneumothorax seen by my review) CT scan - chest: report reviewed and image reviewed EKG: report reviewed
[2025-07-16] MEDS: INSULIN ASPART (*BKC) 100 UNITS/ML SUB-Q (12:10)
[2025-07-16] MEDS: PROPOFOL IV EMULSION 100 ML 9.33 MG IV CONT (13:29)
[2025-07-16] MEDS: FENTANYL 2,500MCG/NS250ML(*CRX 2,500 MCG/250 ML BAG 12.5 MCG IV CONT (14:14)
[2025-07-16] MEDS: MINERAL OIL/WHITE PETROLATUM OINTMENT 1 APPLIC EACH EYE (20:04)
[2025-07-17] VITALS (50 sets, daily range): BP systolic 109–136; BP diastolic 80–97; PULSE 72–94; RESP 11–30; TEMP 37.1–38.2; O2SAT 94–99; BMI 19.5
--- NOTE | 2025-07-17 | ECHO_ITS ---
Patient Info Name: Javad Cano Young Age: 65 years : 1960 Gender: Male Ht: 72 in Wt: 138 lbs BSA: 1.77 m2 HR: 85 bpm BP: 119 / 92 mmHg Heart Rhythm: Sinus Rhythm Technical Quality: Good Exam Date: 07/17/2025 8:30 AM Patient Status: I Admit Date: 07/16/2025 Exam Type: CA echo doppler color flow Complete two-dimensional, color flow and Doppler transthoracic echocardiogram is performed. Staff Referring Physician: Trent Hernandez MD Stroke Program Coordinator: Claudia Jeff Attending Provider: Yeni Menendez Summary 1. Complete two-dimensional, color flow and Doppler transthoracic echocardiogram is performed. 2. Left ventricular systolic function is normal, estimated at 50-55. 3. The mid anterior wall is hypokinetic. 4. Left atrial chamber dimension is mildly enlarged. 5. Right atrial chamber dimension is mildly enlarged. 6. There is mild to moderate mitral valve regurgitation. 7. There is mild to moderate tricuspid valve regurgitation. 8. Severe pulmonary hypertension, estimated pulmonary arterial systolic pressure is 55 mmHg. Left Ventricle Left ventricular chamber dimension is normal. Left ventricular systolic function is normal, estimated at 50-55. There is no increased left ventricular wall thickness. Left ventricular septal wall motion is normal. The left ventricular diastolic function is abnormal. The mid anterior wall is hypokinetic. Right Ventricle Right ventricular chamber dimension is normal. Right ventricular systolic function is normal. Left Atria Left atrial chamber dimension is mildly enlarged. Right Atria Right atrial chamber dimension is mildly enlarged. Aortic Valve The aortic valve is trileaflet. There is no aortic valve sclerosis. There is no aortic valve stenosis. There is no aortic valve regurgitation. Pulmonic Valve The pulmonic valve is normal. There is no pulmonic valve stenosis. There is no pulmonic regurgitation. Mitral Valve The mitral valve has normal leaflets. There is no mitral valve stenosis. There is mild to moderate mitral valve regurgitation. Tricuspid Valve The tricuspid valve leaflets are normal. There is no significant tricuspid valve stenosis. There is mild to moderate tricuspid valve regurgitation. Severe pulmonary hypertension, estimated pulmonary arterial systolic pressure is 55 mmHg. Pericardium/Pleural The pericardium appears normal. There is no pericardial effusion. Inferior Vena Cava Dilated inferior vena cava with <50% collapse upon inspiration consistent with elevated right atrial pressure, 15 mmHg. Aorta The aortic root size at the sinus of Valsalva is normal. The prox ascending aorta size is normal. Left Ventricular Outflow Tract Name Value Normal LVOT 2D LVOT Diameter 2.0 cm Pulmonic Valve Name Value Normal RVOT Doppler RVOT Peak Velocity 40 cm/s RVOT Peak Gradient 1 mmHg PV Doppler PV Peak Velocity 69 cm/s PV Peak Gradient 2 mmHg Mitral Valve Name Value Normal MV Regurgitation Doppler MR Peak Gradient 48 mmHg MV Diastolic Function MV E Peak Velocity 122 cm/s MV A Peak Velocity 2 cm/s MV E/A 75.3 MV Decel Time (PW) 116 ms MV Annular TDI MV E/e' (Septal) 14.9 MV E/e' (Lateral) 13.9 MV E/e' (Average) 14.4 Tricuspid Valve Name Value Normal TV Regurgitation Doppler TR Peak Velocity 317 cm/s TR Peak Gradient 36 mmHg Estimated PAP/RSVP RA Pressure 15 mmHg <=5 PA Systolic Pressure 55 mmHg <36 RV Systolic Pressure 55 mmHg <36 TV Annular TDI TV Lateral Giovana s' Velocity 8.2 cm/s >=9.5 Aorta Name Value Normal Ascending Aorta Ao Root Diameter (MM) 3.5 cm Ao Root Diam Index (MM) 2.0 cm/m2 Aortic Valve Name Value Normal AV Regurgitation 2D LVOT Area 3.2 cm2 Ventricles Name Value Normal LV Dimensions 2D/MM IVS Diastolic Thickness (2D) 0.9 cm 0.6-1.0 LVID Diastole (2D) 5.4 cm 4.2-5.8 LVIW Diastolic Thickness (2D) 0.9 cm 0.6-1.0 LVID Systole (2D) 3.6 cm 2.5-4.0 LVOT Diameter 2.0 cm LV Mass (2D Cubed) 168.62 g 88.00-224.00 LV Mass Index (2D Cubed) 95 g/m2 49-115 Relative Wall Thickness (2D) 0.32 <=0.42 LV Fractional Shortening/Ejection Fraction 2D/MM LV Fractional Shortening (2D) 32 % 25-43 LV EF (2D Teichholz) 60 % LV Diastolic Volume (4C MOD) 102 ml LV EF (4C MOD) 59 % LV Diastolic Volume (2C MOD) 113 ml LV EF (2C MOD) 61 % LV Diastolic Volume (BP MOD) 108 ml 62-150 LV Diastolic Volume Index (BP MOD) 61 ml/m2 34-74 LV Systolic Volume (BP MOD) 46 ml 21-61 LV Systolic Volume Index (BP MOD) 26 ml/m2 11-31 LV EF (BP MOD) 57 % 52-72 LV Diastolic Length (4C) 7.7 cm LV Systolic Length (4C) 6.6 cm LV Stroke Volume (4C MOD) 60 ml Atria Name Value Normal LA Dimensions LA Dimension (MM) 4.6 cm 3.0-4.0 LA Volume (4C A-L) 114 ml LA Volume (BP A-L) 119 ml RA Dimensions RA Area (4C) 23.4 cm2 <=18.0 Wall Motion Scoring Report Signatures
[2025-07-17] MEDS: INSULIN ASPART (*BKC) 100 UNITS/ML SUB-Q ×3 (00:12→17:23)
[2025-07-17] MEDS: PROPOFOL IV EMULSION 100 ML 7.46 MG IV CONT (03:55)
[2025-07-17 04:44] LABS: Hematocrit 37.0 % (42.0-52.0); Hemoglobin 12.2 g/dL (14.0-18.0); Mean Corpuscular HGB Conc 33.0 g/dl (32-36); Mean Corpuscular Hemoglobin 30.0 pg (26-34); Mean Corpuscular Volume 90.9 fl (80-100); Platelet Count Result 179 k/mm3 (150-375); Red Blood Count 4.07 M/mm3 (4.6-6.20); White Blood Count 21.9 K/mm3 (4.5-10.0)
[2025-07-17 05:04] LABS: Alanine Aminotransferase 40 U/L (6-50); Albumin Level 3.6 g/dL (3.5-5.1); Alkaline Phosphatase 58 U/L (38-126); Anion Gap 6 mmol/L (4-12); Aspartate Amino Transferase 59 U/L (17-59); Bilirubin,Total 0.6 mg/dL (0.2-1.3); Blood Urea Nitrogen 47 mg/dL (9-20); Calcium 8.5 mg/dL (8.4-10.2); Carbon Dioxide 28 mmol/L (22-30); Chloride 97 mmol/L (98-107); Estimated CRCL calculation 50 ml/min; Estimated Glomerular Filt Rate > 60; Glucose 185 mg/dL (65-110); Magnesium 2.2 mg/dL (1.6-2.3); Potassium 4.4 mmol/L (3.4-5.0); Sodium 131 mmol/L (137-145); Total Protein 6.6 g/dL (6.3-8.2)
[2025-07-17 05:20] LABS: Alveolar/Arterial O2 Gradient 63.6 mmHg; Carboxyhemoglobin 0.8 % THb (0-2.0); Fractional Inspired Oxygen 25 %; HCO3 ABG 24.8 mEq/l (22.0-26.0); Methemoglobin ABG 0.0 %THb (0-1.5); Oxygen Content ABG 17.8 %vol (16.0-22.0); Oxygen Saturation ABG 96.0 % (95.0-100.0); PCO2 ABG 33.9 mmHg (35.0-45.0); PO2 ABG 74.4 mmHg (80.0-100.0); PO2 FiO2 Ratio Arterial Blood 2.98 %; Reduced Hemoglobin 4.9 %THb (0-5.0)
[2025-07-17 05:21] LABS: Arterial Blood Gas Tidal Volume 500 ml; Arterial Blood Gas Ventilator rate 20 /MIN; Modified Allen's Test Unable to perform; Site Drawn RIGHT RADIAL
[2025-07-17] MEDS: dilTIAZem 100 MG/100 ML 100 MG/100 ML BAG 15 MG IV CONT ×4 (06:10→17:19)
[2025-07-17] MEDS: PANTOPRAZOLE SODIUM IV 40 MG VIAL IV PUSH (08:24)
[2025-07-17] MEDS: FOLIC ACID 1 MG TABLET FEED TUBE (08:24)
[2025-07-17] MEDS: ENOXAPARIN 80 MG/0.8 ML SYRINGE 65 MG SUB-Q ×2 (08:25→20:10)
[2025-07-17] MEDS: THIAMINE HCL 100 MG TABLET FEED TUBE (08:25)
--- NOTE | 2025-07-17 08:34 | WPDINTPN ---
Progress Note: A&P Assessment and Plan (1) Respiratory failure with hypoxia and hypercapnia: Qualifiers: Chronicity: acute Qualified Code(s): J96.01 - Acute respiratory failure with hypoxia; J96.02 - Acute respiratory failure with hypercapnia Code(s): J96.91 - Respiratory failure, unspecified with hypoxia; J96.92 - Respiratory failure, unspecified with hypercapnia Status: Acute Assessment and Plan: Multifactorial acute on chronic respiratory failure secondary to acute exacerbation of COPD, left pneumothorax and AFib with RVR Patient now intubated and sedated Vent settings reviewed and I have decreased the tidal volume to 450 and rate to 18 Left pneumothorax Status post chest tube placement which is to suction and there is no air leak at this time Empiric Rocephin for COPD exacerbation. No significant consolidation on infiltrates on the CT scan to suggest pneumonia., pending blood cultures Viral panel was negative Continue steroids but decrease the dose to q.a.m. Continue bronchodilators CT scan and chest x-ray reviewed Sedated with fentanyl and propofol at this time (2) Acute exacerbation of chronic obstructive pulmonary disease: Code(s): J44.1 - Chronic obstructive pulmonary disease with (acute) exacerbation Status: Acute Assessment and Plan: See above (3) Pneumothorax, left: Code(s): J93.9 - Pneumothorax, unspecified Status: Acute Assessment and Plan: See above (4) Alcohol abuse: Code(s): F10.10 - Alcohol abuse, uncomplicated Status: Acute Assessment and Plan: Currently sedated with propofol and fentanyl Continue thiamine and folic acid (5) Hypertension: Code(s): I10 - Essential (primary) hypertension Status: Acute Assessment and Plan: Monitor at this time. Patient is sedated and on to Cardizem infusion. Hold other antihypertensives (6) Atrial fibrillation with rapid ventricular response: Code(s): I48.91 - Unspecified atrial fibrillation Status: Acute Assessment and Plan: AFib with RVR. Improved with Cardizem infusion. Continue at this time as long as blood pressure tolerates. Pending echocardiogram. Continue Lovenox. (7) Cardiomyopathy: Qualifiers: Cardiomyopathy type: unspecified Qualified Code(s): I42.9 - Cardiomyopathy, unspecified Code(s): I42.9 - Cardiomyopathy, unspecified Status: Acute Assessment and Plan: Check echocardiogram. (8) Electrolyte abnormality: Code(s): E87.8 - Other disorders of electrolyte and fluid balance, not elsewhere classified Status: Acute Assessment and Plan: Magnesium replacement ordered (9) Hyperglycemia: Code(s): R73.9 - Hyperglycemia, unspecified Status: Acute Assessment and Plan: Continue sliding scale insulin. Add Lantus. (10) Sepsis: Qualifiers: Sepsis type: sepsis due to unspecified organism Sepsis acute organ dysfunction status: without acute organ dysfunction Qualified Code(s): A41.9 - Sepsis, unspecified organism Code(s): A41.9 - Sepsis, unspecified organism Status: Acute Assessment and Plan: Secondary to UTI Urine culture ordered and pending Continue IV fluids continue Rocephin History of Proteus UTI which was sensitive to Rocephin (11) UTI (urinary tract infection): Code(s): N39.0 - Urinary tract infection, site not specified Status: Acute Assessment and Plan: See above Plan DVT prophylaxis -continue Lovenox therapeutic dose Stress ulcer prophylaxis -PPI Nutrition - advance Tube Feeds Code Status - Full Code Total Critical Care Time - 30 minutes Due to a high probability of clinically significant, life threatening deterioration, the patient required my highest level of preparedness to intervene emergently and I personally spent this critical care time directly and personally managing the patient. This critical care time included obtaining a history; examining the patient; pulse oximetry; ordering and review of studies; arranging urgent treatment with development of a management plan; evaluation of patient's response to treatment; frequent reassessment; and discussions with other providers. It was exclusive of separately billable procedures and treating other patients and teaching time. Please see Assessment and Plan section and the rest of the note for further information on patient assessment and treatment Subjective Date/time seen: 07/17/25 Overnight events reviewed. Afebrile Continues to be on mechanical ventilation 25% FiO2 Continues to be on Cardizem infusion and in AFib with controlled ventricular rate Continues to be sedated with propofol and [place] Tolerating tube feeds at 20 mL/hour Urine output is on the lower side. Review of Systems Review of Systems: ROS unobtainable: Yes unobtainable due to endotracheal tube, unobtainable due to medical condition and unobtainable due to mental status Exam Narrative: General: Pt is sedated, intubated and on mechanical ventilation Lungs/Chest: Trachea central, overall significantly decreased breath sounds bilaterally. No wheezing or crackles heard chest tube on the left with no air leak Cardiac: Irregularly irregular tachycardic. Normal S1 S2. No murmurs Circulation: Pedal pulses are intact and symmetrical. Abdomen: Decreased bowel sounds. Soft. NT. ND. Extremities: No clubbing, cyanosis or edema. Warm : Lau in place Neurologic: Despite low sedation patient follows commands intermittently but moves all 4 extremities spontaneously. Nodes is head on calling his name. Pupil slightly unequal with left slightly bigger than right of both are reactive to light Objective Data Vital Signs Vital Signs: Vital Signs - 24 hr 07/16/25 08:43 07/16/25 09:30 07/16/25 09:30 Temperature 38.0 C H Pulse Rate 100 103 H 98 Respiratory Rate 24 H 20 Blood Pressure 108/77 105/78 Pulse Oximetry 98 Oxygen Delivery Fraction of Inspired Oxygen 07/16/25 10:00 07/16/25 10:00 07/16/25 10:00 Temperature Pulse Rate 88 91 90 Respiratory Rate 21 H 21 H Blood Pressure Pulse Oximetry Oxygen Delivery Fraction of Inspired Oxygen 07/16/25 10:00 07/16/25 10:09 07/16/25 10:30 Temperature 37.9 C H Pulse Rate 91 101 H 92 Respiratory Rate 26 H 21 H Blood Pressure 102/76 Pulse Oximetry 98 99 Oxygen Delivery Mechanical Ventilation Fraction of Inspired Oxygen 30 07/16/25 10:41 07/16/25 11:00 07/16/25 11:30 Temperature 37.9 C H Pulse Rate 90 93 84 Respiratory Rate 20 19 21 H Blood Pressure 102/77 Pulse Oximetry 97 Oxygen Delivery Fraction of Inspired Oxygen 07/16/25 11:30 07/16/25 11:36 07/16/25 12:00 Temperature Pulse Rate 84 82 84 Respiratory Rate 19 Blood Pressure 101/73 92/71 L Pulse Oximetry Oxygen Delivery Fraction of Inspired Oxygen 07/16/25 12:00 07/16/25 12:00 07/16/25 12:00 Temperature Pulse Rate 88 88 Respiratory Rate 21 H 21 H Blood Pressure Pulse Oximetry Oxygen Delivery Fraction of Inspired Oxygen 30 07/16/25 12:00 07/16/25 12:00 07/16/25 12:00 Temperature 37.8 C H Pulse Rate 81 83 Respiratory Rate 20 Blood Pressure 92/71 L Pulse Oximetry 99 99 Oxygen Delivery Mechanical Ventilation Fraction of Inspired Oxygen 30 07/16/25 12:21 07/16/25 12:21 07/16/25 12:30 Temperature Pulse Rate 79 79 82 Respiratory Rate 21 H Blood Pressure 98/72 L 98/72 L Pulse Oximetry Oxygen Delivery Fraction of Inspired Oxygen 07/16/25 12:45 07/16/25 12:49 07/16/25 13:00 Temperature 37.7 C H Pulse Rate 104 H 81 79 Respiratory Rate 21 H 21 H Blood Pressure 87/68 L Pulse Oximetry 99 99 Oxygen Delivery Mechanical Ventilation Fraction of Inspired Oxygen 30 07/16/25 13:29 07/16/25 13:29 07/16/25 13:30 Temperature Pulse Rate 73 73 86 Respiratory Rate 22 H 22 H 20 Blood Pressure Pulse Oximetry Oxygen Delivery Fraction of Inspired Oxygen 07/16/25 13:30 07/16/25 13:43 07/16/25 13:47 Temperature Pulse Rate 80 78 Respiratory Rate 21 H Blood Pressure 98/78 L Pulse Oximetry Oxygen Delivery Fraction of Inspired Oxygen 25 07/16/25 14:00 07/16/25 14:00 07/16/25 14:00 Temperature 37.7 C H Pulse Rate 79 83 76 Respiratory Rate 22 H 20 Blood Pressure 90/75 L 90/75 L Pulse Oximetry 97 Oxygen Delivery Fraction of Inspired Oxygen 07/16/25 14:00 07/16/25 14:14 07/16/25 14:14 Temperature Pulse Rate 78 79 79 Respiratory Rate 23 H 23 H Blood Pressure Pulse Oximetry Oxygen Delivery Fraction of Inspired Oxygen 07/16/25 14:15 07/16/25 15:00 07/16/25 15:30 Temperature 37.7 C H Pulse Rate 79 81 Respiratory Rate 21 H 20 Blood Pressure 93/75 L 92/77 L Pulse Oximetry 96 Oxygen Delivery Fraction of Inspired Oxygen 07/16/25 15:34 07/16/25 15:34 07/16/25 15:47 Temperature Pulse Rate 77 79 77 Respiratory Rate 20 20 20 Blood Pressure Pulse Oximetry Oxygen Delivery Fraction of Inspired Oxygen 07/16/25 16:00 07/16/25 16:00 07/16/25 16:00 Temperature 37.7 C H Pulse Rate 77 Respiratory Rate 21 H Blood Pressure 96/73 L Pulse Oximetry 97 97 Oxygen Delivery Mechanical Ventilation Fraction of Inspired Oxygen 25 07/16/25 16:00 07/16/25 16:00 07/16/25 16:00 Temperature Pulse Rate 80 79 82 Respiratory Rate 20 Blood Pressure 96/73 L Pulse Oximetry Oxygen Delivery Fraction of Inspired Oxygen 07/16/25 16:12 07/16/25 16:13 07/16/25 16:58 Temperature Pulse Rate 82 80 77 Respiratory Rate 23 H 21 H Blood Pressure 96/77 L Pulse Oximetry 97 97 Oxygen Delivery Mechanical Ventilation Fraction of Inspired Oxygen 25 07/16/25 17:05 07/16/25 17:20 07/16/25 17:20 Temperature Pulse Rate 80 86 86 Respiratory Rate 20 Blood Pressure 102/90 102/90 Pulse Oximetry Oxygen Delivery Fraction of Inspired Oxygen 07/16/25 17:44 07/16/25 18:00 07/16/25 18:00 Temperature Pulse Rate 86 84 84 Respiratory Rate 20 21 H 21 H Blood Pressure Pulse Oximetry Oxygen Delivery Fraction of Inspired Oxygen 07/16/25 18:00 07/16/25 18:00 07/16/25 18:00 Temperature 37.9 C H Pulse Rate 84 84 88 Respiratory Rate 19 Blood Pressure 107/87 109/87 Pulse Oximetry 97 Oxygen Delivery Fraction of Inspired Oxygen 07/16/25 18:50 07/16/25 19:58 07/16/25 20:00 Temperature 38.1 C H Pulse Rate 83 86 83 Respiratory Rate 27 H 20 Blood Pressure 106/90 110/86 Pulse Oximetry 97 97 97 Oxygen Delivery Mechanical Ventilation Fraction of Inspired Oxygen 25 07/16/25 20:00 07/16/25 20:00 07/16/25 20:00 Temperature Pulse Rate 90 Respiratory Rate Blood Pressure Pulse Oximetry 96 Oxygen Delivery Mechanical Ventilation Fraction of Inspired Oxygen 25 07/16/25 20:00 07/16/25 20:00 07/16/25 20:00 Temperature Pulse Rate 79 79 79 Respiratory Rate 21 H 21 H Blood Pressure 110/86 Pulse Oximetry Oxygen Delivery Fraction of Inspired Oxygen 07/16/25 21:00 07/16/25 22:00 07/16/25 22:00 Temperature 38.2 C H Pulse Rate 81 87 87 Respiratory Rate 18 21 H 21 H Blood Pressure 116/89 Pulse Oximetry 96 Oxygen Delivery Fraction of Inspired Oxygen 07/16/25 22:00 07/16/25 22:00 07/16/25 22:00 Temperature 38.2 C H Pulse Rate 87 87 87 Respiratory Rate 21 H Blood Pressure 118/91 H 118/91 H Pulse Oximetry 96 Oxygen Delivery Fraction of Inspired Oxygen 07/16/25 23:00 07/16/25 23:01 07/17/25 00:00 Temperature 38.2 C H Pulse Rate 83 85 83 Respiratory Rate 15 Blood Pressure 111/87 112/85 Pulse Oximetry 95 95 Oxygen Delivery Mechanical Ventilation Fraction of Inspired Oxygen 25 07/17/25 00:00 07/17/25 00:00 07/17/25 00:00 Temperature Pulse Rate 83 83 83 Respiratory Rate 15 15 Blood Pressure 112/85 Pulse Oximetry Oxygen Delivery Fraction of Inspired Oxygen 07/17/25 00:00 07/17/25 00:00 07/17/25 00:00 Temperature 38.1 C H Pulse Rate 81 91 Respiratory Rate 11 L Blood Pressure 112/85 Pulse Oximetry 95 Oxygen Delivery Fraction of Inspired Oxygen 25 07/17/25 00:00 07/17/25 01:00 07/17/25 02:00 Temperature 38.0 C H 38.0 C H Pulse Rate 89 82 Respiratory Rate 15 11 L Blood Pressure 121/84 112/90 Pulse Oximetry 95 95 96 Oxygen Delivery Mechanical Ventilation Fraction of Inspired Oxygen 25 07/17/25 02:00 07/17/25 02:00 07/17/25 02:00 Temperature Pulse Rate 82 82 82 Respiratory Rate 11 L 11 L Blood Pressure Pulse Oximetry Oxygen Delivery Fraction of Inspired Oxygen 07/17/25 02:00 07/17/25 02:12 07/17/25 03:00 Temperature 37.7 C H Pulse Rate 82 86 83 Respiratory Rate 20 Blood Pressure 112/90 115/90 Pulse Oximetry 96 96 Oxygen Delivery Mechanical Ventilation Fraction of Inspired Oxygen 07/17/25 03:55 07/17/25 03:55 07/17/25 04:00 Temperature Pulse Rate 77 77 83 Respiratory Rate 20 20 21 H Blood Pressure Pulse Oximetry Oxygen Delivery Fraction of Inspired Oxygen 07/17/25 04:00 07/17/25 04:00 07/17/25 04:00 Temperature 37.7 C H Pulse Rate 83 83 83 Respiratory Rate 21 H 21 H Blood Pressure 116/95 H 116/95 H Pulse Oximetry 96 Oxygen Delivery Fraction of Inspired Oxygen 07/17/25 04:00 07/17/25 04:00 07/17/25 04:00 Temperature Pulse Rate 83 Respiratory Rate Blood Pressure Pulse Oximetry 96 Oxygen Delivery Mechanical Ventilation Fraction of Inspired Oxygen 25 25 07/17/25 05:00 07/17/25 05:05 07/17/25 06:00 Temperature 37.7 C H Pulse Rate 84 86 85 Respiratory Rate 22 H Blood Pressure 122/91 H 119/92 H Pulse Oximetry 96 97 Oxygen Delivery Mechanical Ventilation Fraction of Inspired Oxygen 25 07/17/25 06:00 07/17/25 06:00 07/17/25 06:00 Temperature 37.7 C H Pulse Rate 85 85 85 Respiratory Rate 23 H 23 H 23 H Blood Pressure 119/92 H Pulse Oximetry 98 Oxygen Delivery Fraction of Inspired Oxygen 07/17/25 06:00 07/17/25 06:10 07/17/25 06:58 Temperature Pulse Rate 85 85 89 Respiratory Rate Blood Pressure 119/92 H Pulse Oximetry 95 Oxygen Delivery Mechanical Ventilation Fraction of Inspired Oxygen 25 07/17/25 07:00 07/17/25 07:30 07/17/25 08:00 Temperature 37.6 C H Pulse Rate 81 81 86 Respiratory Rate 24 H 23 H 25 H Blood Pressure 113/91 H Pulse Oximetry 95 Oxygen Delivery Fraction of Inspired Oxygen 07/17/25 08:00 07/17/25 08:00 07/17/25 08:20 Temperature 37.6 C Pulse Rate 87 88 Respiratory Rate 25 H 25 H Blood Pressure 121/96 H Pulse Oximetry 94 Oxygen Delivery Fraction of Inspired Oxygen 25 Intake/Output Intake/Output: Intake & Output 07/14/25 07/15/25 07/16/25 07/17/25 23:59 23:59 22:59 23:59 Intake Total 1000 2685.3 1656.5 Output Total 932 428 Balance 1000 1753.3 1228.5 Meds/Results Medications: Active Medications Generic Name Dose Route Start Last Admin Trade Name Freq PRN Reason Stop Dose Admin Albuterol/Ipratropium 3 ml 07/16/25 08:21 Ipratropium 0.5 Mg/Albuterol Sulfate 2.5 Mg (Base) Ampul.Neb 3 Ml INHALATION Q6HRT PRN Wheezing Buprenorphine HCl 0.3 mg 07/15/25 21:37 07/15/25 21:58 Buprenorphine Hcl (*Crx) 0.3 Mg/Ml Vial IV PUSH 0.3 mg On Hold: 07/16/25 08:20 Q6H PRN Administration Withdrawal Dextrose 12.5 gm 07/16/25 08:21 Dextrose 50% 25 Gm/50 Ml Syringe IV PUSH PRN PRN Hypoglycemia Protocol Enoxaparin Sodium 65 mg 07/16/25 09:00 07/17/25 08:25 Enoxaparin 80 Mg/0.8 Ml Syringe SUB-Q 65 mg Q12HR MIGUEL A Administration Folic Acid 1 mg 07/16/25 09:00 07/17/25 08:24 Folic Acid 1 Mg Tablet FEED TUBE 1 mg DAILY MIGUEL A Administration Glucagon 1 mg 07/16/25 08:21 Glucagon For Inj 1 Mg Vial IM PRN PRN Hypoglycemia Protocol Glucose 15 gm 07/16/25 08:21 Glucose Oral Gel 15 Gm Of Glucse In 37.5 Gm Tube PO PRN PRN Hypoglycemia Protocol Fentanyl Citrate 2,500 mcg in 250 mls @ 10 mls/hr 07/16/25 00:30 07/17/25 06:00 Fentanyl 2,500 Mcg/Ns 250 Ml IV CONT 100 mcg/hr .Q25H MIGUEL A 10 mls/hr Protocol Titration 100 MCG/HR Propofol 100 mls @ 13.062 mls/hr 07/16/25 05:25 07/17/25 08:20 Diprivan IV CONT 35 mcg/kg/min .Q7H40M MIGUEL A 13.06 mls/hr Protocol Titration 35 MCG/KG/MIN Dextrose 1,000 mls @ 100 mls/hr 07/16/25 08:21 Dextrose 5% 1,000 Ml IVPB PRN PRN Hypoglycemia Protocol Diltiazem HCl 100 mg in 100 mls @ 15 mls/hr 07/16/25 07:30 07/17/25 06:10 Cardizem 100 Mg/100 Ml IV CONT 15 mg/hr .Q6H40M MIGUEL A 15 mls/hr 15 MG/HR Administration Ceftriaxone Sodium 2 gm/ 100 mls @ 200 mls/hr 07/16/25 11:00 07/16/25 11:59 Sodium Chloride IVPB Infused Q24H MIGUEL A Infusion Insulin Aspart 3 - 6 units 07/16/25 12:00 07/17/25 06:18 Insulin Aspart (*Bkc) 100 Units/Ml SUB-Q 4 units Q6HR MIGUEL A Administration Protocol Insulin Glargine 20 units 07/17/25 09:00 Insulin Glargine (*Bkc) 100 Units/Ml SUB-Q QAM MIGUEL A Methylprednisolone Sodium Succinate 80 mg 07/18/25 09:00 Methylprednisolone Sod Succ 125 Mg Vial IV PUSH QAM MIGUEL A Multi-Ingred Cream/Lotion/Oil/Oint 1 applic 07/16/25 21:00 07/16/25 20:04 Mineral Oil/White Petrolatum Ointment EACH EYE 1 applic Q12HR MIGUEL A Administration Pantoprazole Sodium 40 mg 07/16/25 09:00 07/17/25 08:24 Pantoprazole Sodium Iv 40 Mg Vial IV PUSH 40 mg QAM MIGUEL A Administration Perflutren Lipid Microsphere 0 ml 07/16/25 08:17 Perflutren Lipid Microspheres 1.5 Ml Vial Diluted To 10 Ml Total Volume IV PUSH 07/19/25 08:18 ONCE PRN adequate visualization Protocol Sodium Chloride 10 ml 07/17/25 14:00 Central Line Flush IV PUSH Q8HR MIGUEL A Sodium Chloride 20 ml 07/17/25 06:35 Central Line Flush IV PUSH PRN PRN after blood draws Thiamine HCl 100 mg 07/16/25 09:00 07/17/25 08:25 Thiamine Hcl 100 Mg Tablet FEED TUBE 100 mg QAM MIGUEL A Administration Radiology Results: ITS Impressions Chest CTA 07/16/25 08:43 IMPRESSION: 1. No pulmonary embolus. 2. Moderate-sized left pneumothorax. 3. Mild pulmonary edema. 4. Left lung upper lobe nodules, which may be infection or less likely metastatic disease. 5. Moderate emphysema. Chest X-Ray 07/17/25 08:13 Impression: Mild CHF Labs Labs: Laboratory Results - last 24 hr 07/15/25 07/16/25 07/16/25 23:42 09:32 12:04 WBC Cancelled RBC Cancelled Hgb Cancelled Hct Cancelled MCV Cancelled MCH Cancelled MCHC Cancelled RDW Cancelled Plt Count Cancelled MPV Cancelled Immature Gran % (Auto) Cancelled Neut % (Auto) Cancelled Lymph % (Auto) Cancelled [place] % (Auto) Cancelled Eos % (Auto) Cancelled Baso % (Auto) Cancelled Lymph # (Auto) Cancelled [place] # (Auto) Cancelled Eos # (Auto) Cancelled Baso # (Auto) Cancelled Abs Immat Gran (auto) Cancelled Absolute Neuts (auto) Cancelled Absolute Nucleated RBC Cancelled Nucleated RBC % Cancelled % Immature Plt Fraction Cancelled Puncture Site ABG pH ABG pCO2 ABG pO2 ABG PO2/FiO2 Ratio ABG HCO3 ABG O2 Saturation ABG O2 Content ABG Base Excess A-a Gradient Oxyhemoglobin Carboxyhemoglobin Methemoglobin Reduced Hemoglobin Total Hemoglobin O2 Delivery Device O2 Liters/Min Minute Volume Vent Rate Vent Mode FiO2 Tidal Volume PEEP Peak Inspir Pressure Pressure Support Sodium Potassium Chloride Carbon Dioxide Anion Gap BUN Creatinine Estim Creat Clear Calc Estimated GFR Glucose POC Capillary Glucose 250 H Calcium Phosphorus Magnesium Total Bilirubin AST ALT Alkaline Phosphatase Total Protein Albumin Urine Color Yellow Urine Appearance Turbid H Urine pH 5.5 Ur Specific [place] 1.044 H Urine Protein 1+ H Urine Glucose (UA) 2+ H Urine Ketones Trace H Ur Blood (Man) 3+ H Urine Nitrate Positive H Urine Bilirubin Negative Urine Urobilinogen 1.0 Add Ur Microanalysis Reviewed Leukocyte Esterase Rfl 2+ H Urine RBC >100 H Urine WBC >100 H Ur Squamous Epith Cells None seen Uric Acid Crystals Present H Urine Bacteria 4+ H Urine Casts 6-10 07/16/25 07/16/25 07/17/25 17:11 18:11 00:10 WBC RBC Hgb Hct MCV MCH MCHC RDW Plt Count MPV Immature Gran % (Auto) Neut % (Auto) Lymph % (Auto) [place] % (Auto) Eos % (Auto) Baso % (Auto) Lymph # (Auto) [place] # (Auto) Eos # (Auto) Baso # (Auto) Abs Immat Gran (auto) Absolute Neuts (auto) Absolute Nucleated RBC Nucleated RBC % % Immature Plt Fraction Puncture Site ABG pH ABG pCO2 ABG pO2 ABG PO2/FiO2 Ratio ABG HCO3 ABG O2 Saturation ABG O2 Content ABG Base Excess A-a Gradient Oxyhemoglobin Carboxyhemoglobin Methemoglobin Reduced Hemoglobin Total Hemoglobin O2 Delivery Device O2 Liters/Min Minute Volume Vent Rate Vent Mode FiO2 Tidal Volume PEEP Peak Inspir Pressure Pressure Support Sodium Potassium Chloride Carbon Dioxide Anion Gap BUN Creatinine Estim Creat Clear Calc Estimated GFR Glucose POC Capillary Glucose 163 H 187 H 210 H Calcium Phosphorus Magnesium Total Bilirubin AST ALT Alkaline Phosphatase Total Protein Albumin Urine Color Urine Appearance Urine pH Ur Specific Brothers Urine Protein Urine Glucose (UA) Urine Ketones Ur Blood (Man) Urine Nitrate Urine Bilirubin Urine Urobilinogen Add Ur Microanalysis Leukocyte Esterase Rfl Urine RBC Urine WBC Ur Squamous Epith Cells Uric Acid Crystals Urine Bacteria Urine Casts 07/17/25 07/17/2507/17/25 04:37 05:05 06:15 WBC 21.9 H RBC 4.07 L Hgb 12.2 L Hct 37.0 L MCV 90.9 MCH 30.0 MCHC 33.0 RDW 16.8 H Plt Count 179 MPV 9.4 Immature Gran % (Auto) Neut % (Auto) Lymph % (Auto) [place] % (Auto) Eos % (Auto) Baso % (Auto) Lymph # (Auto) [place] # (Auto) Eos # (Auto) Baso # (Auto) Abs Immat Gran (auto) Absolute Neuts (auto) Absolute Nucleated RBC Nucleated RBC % % Immature Plt Fraction Puncture Site Right radial ABG pH 7.482 H ABG pCO2 33.9 L ABG pO2 74.4 L ABG PO2/FiO2 Ratio 2.98 ABG HCO3 24.8 ABG O2 Saturation 96.0 ABG O2 Content 17.8 ABG Base Excess 1.8 A-a Gradient 63.6 Oxyhemoglobin 94.3 Carboxyhemoglobin 0.8 Methemoglobin 0.0 Reduced Hemoglobin 4.9 Total Hemoglobin 13.4 O2 Delivery Device Ventilator O2 Liters/Min Not Reportable Minute Volume Not Reportable Vent Rate 20 Vent Mode Cmv FiO2 25 Tidal Volume 500 PEEP 5 Peak Inspir Pressure Not Reportable Pressure Support Not Reportable Sodium 131 L Potassium 4.4 Chloride 97 L Carbon Dioxide 28 Anion Gap 6 BUN 47 H D Creatinine 1.17 Estim Creat Clear Calc 50 Estimated GFR > 60 Glucose 185 H POC Capillary Glucose 256 H Calcium 8.5 Phosphorus 4.0 Magnesium 2.2 Total Bilirubin 0.6 AST 59 ALT 40 Alkaline Phosphatase 58 Total Protein 6.6 Albumin 3.6 Urine Color Urine Appearance Urine pH Ur Specific Brothers Urine Protein Urine Glucose (UA) Urine Ketones Ur Blood (Man) Urine Nitrate Urine Bilirubin Urine Urobilinogen Add Ur Microanalysis Leukocyte Esterase Rfl Urine RBC Urine WBC Ur Squamous Epith Cells Uric Acid Crystals Urine Bacteria Urine Casts Quality VTE Prophylaxis VTE prophylaxis: pharmacologic ordered
[2025-07-17] MEDS: INSULIN GLARGINE (*BKC) 100 UNITS/ML 20 UNITS SUB-Q (10:00)
[2025-07-17] MEDS: MINERAL OIL/WHITE PETROLATUM OINTMENT 1 APPLIC EACH EYE ×2 (10:00→20:11)
--- NOTE | 2025-07-17 10:59 | P.PNGS_ITS ---
Progress Note: A&P Assessment and Plan (1) Pneumothorax, left: Code(s): J93.9 - Pneumothorax, unspecified Status: Acute Assessment and Plan: * Patient remains on the ventilator with FiO2 of 25% and good oxygen saturation. Chest tube remains in good position with no air leak. CXR showed no pneumothorax this morning. * Continue to monitor with serial CXR daily (2) Respiratory failure with hypoxia and hypercapnia: Qualifiers: Chronicity: acute Qualified Code(s): J96.01 - Acute respiratory failure with hypoxia; J96.02 - Acute respiratory failure with hypercapnia Code(s): J96.91 - Respiratory failure, unspecified with hypoxia; J96.92 - Respiratory failure, unspecified with hypercapnia Status: Acute (3) COPD (chronic obstructive pulmonary disease): Qualifiers: COPD type: emphysema Emphysema type: unspecified Qualified Code(s): J43.9 - Emphysema, unspecified Code(s): J44.9 - Chronic obstructive pulmonary disease, unspecified Status: Chronic (4) Sepsis: Qualifiers: Sepsis type: sepsis due to unspecified organism Sepsis acute organ dysfunction status: without acute organ dysfunction Qualified Code(s): A41.9 - Sepsis, unspecified organism Code(s): A41.9 - Sepsis, unspecified organism Status: Acute Assessment and Plan: * Likely urinary source. Cultures still pending. * Continue IV antibiotics and critical care management (5) Atrial fibrillation with rapid ventricular response: Code(s): I48.91 - Unspecified atrial fibrillation Status: Acute (6) Polysubstance abuse: Code(s): F19.10 - Other psychoactive substance abuse, uncomplicated Status: Chronic Plan I have discussed the patient's case and plan of care with Dr. Yen. Subjective Subjective Date/Time Seen: 07/17/25 10:59 Patient reports: fever (T max 100.7F overnight, WBC up to 21k today) Interval history: Patient intubated and sedated in the ICU. Chest tube in place to -20 cm suction. No air leak. Dressing saturated and nursing brought supplies to the bedside for a dressing change. No acute changes overnight per nursing. Exam Const: General: patient obtunded Chest: Chest palpation & inspection: crepitus (small area of crepitus around the chest tube) Other: Left lateral chest tube in place with connections all secure and dressing saturated with dry bloody drainage. Minimal serosanguineous drainage in canister (80 cc out in the past 12 hours). No air leak. Sterile occlusive dressing changed at bedside. Resp: Effort & Inspection: abnormal respiratory effort (patient on mechanical ventilator) Auscultation: diminished lung sounds (throughout) Objective Data Vital Signs Vital Signs: Vital Signs - 24 hr 07/16/25 11:00 07/16/25 11:30 07/16/25 11:30 Temperature 100.2 F H Pulse Rate 93 84 84 Respiratory Rate 19 21 H Blood Pressure 102/77 101/73 Pulse Oximetry 97 Oxygen Delivery Fraction of Inspired Oxygen 07/16/25 11:36 07/16/25 12:00 07/16/25 12:00 Temperature Pulse Rate 82 84 88 Respiratory Rate 19 21 H Blood Pressure 92/71 L Pulse Oximetry Oxygen Delivery Fraction of Inspired Oxygen 07/16/25 12:00 07/16/25 12:00 07/16/25 12:00 Temperature Pulse Rate 88 Respiratory Rate 21 H Blood Pressure Pulse Oximetry 99 Oxygen Delivery Mechanical Ventilation Fraction of Inspired Oxygen 30 30 07/16/25 12:00 07/16/25 12:00 07/16/25 12:21 Temperature 100.0 F H Pulse Rate 81 83 79 Respiratory Rate 20 Blood Pressure 92/71 L 98/72 L Pulse Oximetry 99 Oxygen Delivery Fraction of Inspired Oxygen 07/16/25 12:21 07/16/25 12:30 07/16/25 12:45 Temperature Pulse Rate 79 82 104 H Respiratory Rate 21 H Blood Pressure 98/72 L Pulse Oximetry 99 Oxygen Delivery Mechanical Ventilation Fraction of Inspired Oxygen 30 07/16/25 12:49 07/16/25 13:00 07/16/25 13:29 Temperature 99.8 F H Pulse Rate 81 79 73 Respiratory Rate 21 H 21 H 22 H Blood Pressure 87/68 L Pulse Oximetry 99 Oxygen Delivery Fraction of Inspired Oxygen 07/16/25 13:29 07/16/25 13:30 07/16/25 13:30 Temperature Pulse Rate 73 86 80 Respiratory Rate 22 H 20 21 H Blood Pressure Pulse Oximetry Oxygen Delivery Fraction of Inspired Oxygen 07/16/25 13:43 07/16/25 13:47 07/16/25 14:00 Temperature Pulse Rate 78 79 Respiratory Rate 22 H Blood Pressure 98/78 L Pulse Oximetry Oxygen Delivery Fraction of Inspired Oxygen 25 07/16/25 14:00 07/16/25 14:00 07/16/25 14:00 Temperature 99.8 F H Pulse Rate 83 76 78 Respiratory Rate 20 Blood Pressure 90/75 L 90/75 L Pulse Oximetry 97 Oxygen Delivery Fraction of Inspired Oxygen 07/16/25 14:14 07/16/25 14:14 07/16/25 14:15 Temperature Pulse Rate 79 79 79 Respiratory Rate 23 H 23 H 21 H Blood Pressure Pulse Oximetry Oxygen Delivery Fraction of Inspired Oxygen 07/16/25 15:00 07/16/25 15:30 07/16/25 15:34 Temperature 99.9 F H Pulse Rate 81 77 Respiratory Rate 20 20 Blood Pressure 93/75 L 92/77 L Pulse Oximetry 96 Oxygen Delivery Fraction of Inspired Oxygen 07/16/25 15:34 07/16/25 15:47 07/16/25 16:00 Temperature 100 F H Pulse Rate 79 77 77 Respiratory Rate 20 20 21 H Blood Pressure 96/73 L Pulse Oximetry 97 Oxygen Delivery Fraction of Inspired Oxygen 07/16/25 16:00 07/16/25 16:00 07/16/25 16:00 Temperature Pulse Rate 80 Respiratory Rate 20 Blood Pressure Pulse Oximetry 97 Oxygen Delivery Mechanical Ventilation Fraction of Inspired Oxygen 25 25 07/16/25 16:00 07/16/25 16:00 07/16/25 16:12 Temperature Pulse Rate 79 82 82 Respiratory Rate 23 H Blood Pressure 96/73 L Pulse Oximetry Oxygen Delivery Fraction of Inspired Oxygen 07/16/25 16:13 07/16/25 16:58 07/16/25 17:05 Temperature Pulse Rate 80 77 80 Respiratory Rate 21 H 20 Blood Pressure 96/77 L Pulse Oximetry 97 97 Oxygen Delivery Mechanical Ventilation Fraction of Inspired Oxygen 25 07/16/25 17:20 07/16/25 17:20 07/16/25 17:44 Temperature Pulse Rate 86 86 86 Respiratory Rate 20 Blood Pressure 102/90 102/90 Pulse Oximetry Oxygen Delivery Fraction of Inspired Oxygen 07/16/25 18:00 07/16/25 18:00 07/16/25 18:00 Temperature Pulse Rate 84 84 84 Respiratory Rate 21 H 21 H Blood Pressure 107/87 Pulse Oximetry Oxygen Delivery Fraction of Inspired Oxygen 07/16/25 18:00 07/16/25 18:00 07/16/25 18:50 Temperature 100.3 F H Pulse Rate 84 88 83 Respiratory Rate 19 27 H Blood Pressure 109/87 106/90 Pulse Oximetry 97 97 Oxygen Delivery Fraction of Inspired Oxygen 07/16/25 19:58 07/16/25 20:00 07/16/25 20:00 Temperature 100.5 F H Pulse Rate 86 83 90 Respiratory Rate 20 Blood Pressure 110/86 Pulse Oximetry 97 97 Oxygen Delivery Mechanical Ventilation Fraction of Inspired Oxygen 25 07/16/25 20:00 07/16/25 20:00 07/16/25 20:00 Temperature Pulse Rate 79 Respiratory Rate 21 H Blood Pressure Pulse Oximetry 96 Oxygen Delivery Mechanical Ventilation Fraction of Inspired Oxygen 07/16/25 20:00 07/16/25 20:00 07/16/25 21:00 Temperature 100.7 F H Pulse Rate 79 79 81 Respiratory Rate 21 H 18 Blood Pressure 110/86 116/89 Pulse Oximetry 96 Oxygen Delivery Fraction of Inspired Oxygen 07/16/25 22:00 07/16/25 22:00 07/16/25 22:00 Temperature Pulse Rate 87 87 87 Respiratory Rate 21 H 21 H Blood Pressure 118/91 H Pulse Oximetry Oxygen Delivery Fraction of Inspired Oxygen 07/16/25 22:00 07/16/25 22:00 07/16/25 23:00 Temperature 100.7 F H 100.7 F H Pulse Rate 87 87 83 Respiratory Rate 21 H 15 Blood Pressure 118/91 H 111/87 Pulse Oximetry 96 95 Oxygen Delivery Fraction of Inspired Oxygen 07/16/25 23:01 07/17/25 00:00 07/17/25 00:00 Temperature Pulse Rate 85 83 83 Respiratory Rate Blood Pressure 112/85 112/85 Pulse Oximetry 95 Oxygen Delivery Mechanical Ventilation Fraction of Inspired Oxygen 07/17/25 00:00 07/17/25 00:00 07/17/25 00:00 Temperature 100.6 F H Pulse Rate 83 83 81 Respiratory Rate 15 15 11 L Blood Pressure 112/85 Pulse Oximetry 95 Oxygen Delivery Fraction of Inspired Oxygen 07/17/25 00:00 07/17/25 00:00 07/17/25 00:00 Temperature Pulse Rate 91 Respiratory Rate Blood Pressure Pulse Oximetry 95 Oxygen Delivery Mechanical Ventilation Fraction of Inspired Oxygen 07/17/25 01:00 07/17/25 02:00 07/17/25 02:00 Temperature 100.4 F H 100.4 F H Pulse Rate 89 82 82 Respiratory Rate 15 11 L Blood Pressure 121/84 112/90 Pulse Oximetry 95 96 Oxygen Delivery Fraction of Inspired Oxygen 07/17/25 02:00 07/17/25 02:00 07/17/25 02:00 Temperature Pulse Rate 82 82 82 Respiratory Rate 11 L 11 L Blood Pressure 112/90 Pulse Oximetry Oxygen Delivery Fraction of Inspired Oxygen 07/17/25 02:12 07/17/25 03:00 07/17/25 03:55 Temperature 100 F H Pulse Rate 86 83 77 Respiratory Rate 20 20 Blood Pressure 115/90 Pulse Oximetry 96 96 Oxygen Delivery Mechanical Ventilation Fraction of Inspired Oxygen 07/17/25 03:55 07/17/25 04:00 07/17/25 04:00 Temperature Pulse Rate 77 83 83 Respiratory Rate 20 21 H 21 H Blood Pressure Pulse Oximetry Oxygen Delivery Fraction of Inspired Oxygen 07/17/25 04:00 07/17/25 04:00 07/17/25 04:00 Temperature 99.9 F H Pulse Rate 83 83 Respiratory Rate 21 H Blood Pressure 116/95 H 116/95 H Pulse Oximetry 96 Oxygen Delivery Fraction of Inspired Oxygen 07/17/25 04:00 07/17/25 04:00 07/17/25 05:00 Temperature 99.8 F H Pulse Rate 83 84 Respiratory Rate 22 H Blood Pressure 122/91 H Pulse Oximetry 96 96 Oxygen Delivery Mechanical Ventilation Fraction of Inspired Oxygen 07/17/25 05:05 07/17/25 06:00 07/17/25 06:00 Temperature Pulse Rate 86 85 85 Respiratory Rate 23 H Blood Pressure 119/92 H Pulse Oximetry 97 Oxygen Delivery Mechanical Ventilation Fraction of Inspired Oxygen 07/17/25 06:00 07/17/25 06:00 07/17/25 06:00 Temperature 99.8 F H Pulse Rate 85 85 85 Respiratory Rate 23 H 23 H Blood Pressure 119/92 H Pulse Oximetry 98 Oxygen Delivery Fraction of Inspired Oxygen 07/17/25 06:10 07/17/25 06:58 07/17/25 07:00 Temperature 99.7 F H Pulse Rate 85 89 81 Respiratory Rate 24 H Blood Pressure 119/92 H 113/91 H Pulse Oximetry 95 95 Oxygen Delivery Mechanical Ventilation Fraction of Inspired Oxygen 07/17/25 07:30 07/17/25 08:00 07/17/25 08:00 Temperature 99.6 F Pulse Rate 81 86 87 Respiratory Rate 23 H 25 H 25 H Blood Pressure 121/96 H Pulse Oximetry 94 Oxygen Delivery Fraction of Inspired Oxygen 07/17/25 08:00 07/17/25 08:00 07/17/25 08:00 Temperature Pulse Rate 87 87 Respiratory Rate 25 H Blood Pressure 121/96 H Pulse Oximetry Oxygen Delivery Fraction of Inspired Oxygen 25 07/17/25 08:00 07/17/25 08:20 07/17/25 09:00 Temperature 99.6 F Pulse Rate 88 82 Respiratory Rate 25 H 27 H Blood Pressure 128/88 Pulse Oximetry 95 95 Oxygen Delivery Mechanical Ventilation Fraction of Inspired Oxygen 25 Intake/Output Intake/Output: Intake & Output 07/14/25 07/15/25 07/16/25 07/17/25 23:59 23:59 22:59 23:59 Intake Total 1000 2685.3 1704.0 Output Total 932 428 Balance 1000 1753.3 1276.0 Meds/Results Medications: Active Medications Generic Name Dose Route Start Last Admin Trade Name Freq PRN Reason Stop Dose Admin Albuterol/Ipratropium 3 ml 07/16/25 08:21 Ipratropium 0.5 Mg/Albuterol Sulfate 2.5 Mg (Base) Ampul.Neb 3 Ml INHALATION Q6HRT PRN Wheezing Buprenorphine HCl 0.3 mg 07/15/25 21:37 07/15/25 21:58 Buprenorphine Hcl (*Crx) 0.3 Mg/Ml Vial IV PUSH 0.3 mg On Hold: 07/16/25 08:20 Q6H PRN Administration Withdrawal Dextrose 12.5 gm 07/16/25 08:21 Dextrose 50% 25 Gm/50 Ml Syringe IV PUSH PRN PRN Hypoglycemia Protocol Enoxaparin Sodium 65 mg 07/16/25 09:00 07/17/25 08:25 Enoxaparin 80 Mg/0.8 Ml Syringe SUB-Q 65 mg Q12HR MIGUEL A Administration Folic Acid 1 mg 07/16/25 09:00 07/17/25 08:24 Folic Acid 1 Mg Tablet FEED TUBE 1 mg DAILY MIGUEL A Administration Glucagon 1 mg 07/16/25 08:21 Glucagon For Inj 1 Mg Vial IM PRN PRN Hypoglycemia Protocol Glucose 15 gm 07/16/25 08:21 Glucose Oral Gel 15 Gm Of Glucse In 37.5 Gm Tube PO PRN PRN Hypoglycemia Protocol Fentanyl Citrate 2,500 mcg in 250 mls @ 10 mls/hr 07/16/25 00:30 07/17/25 08:00 Fentanyl 2,500 Mcg/Ns 250 Ml IV CONT 100 mcg/hr .Q25H MIGUEL A 10 mls/hr Protocol Titration 100 MCG/HR Propofol 100 mls @ 13.062 mls/hr 07/16/25 05:25 07/17/25 08:20 Diprivan IV CONT 35 mcg/kg/min .Q7H40M MIGUEL A 13.06 mls/hr Protocol Titration 35 MCG/KG/MIN Dextrose 1,000 mls @ 100 mls/hr 07/16/25 08:21 Dextrose 5% 1,000 Ml IVPB PRN PRN Hypoglycemia Protocol Diltiazem HCl 100 mg in 100 mls @ 15 mls/hr 07/16/25 07:30 07/17/25 08:00 Cardizem 100 Mg/100 Ml IV CONT 15 mg/hr .Q6H40M MIGUEL A 15 mls/hr 15 MG/HR Infusion Ceftriaxone Sodium 2 gm/ 100 mls @ 200 mls/hr 07/16/25 11:00 07/16/25 11:59 Sodium Chloride IVPB Infused Q24H MIGUEL A Infusion Insulin Aspart 3 - 6 units 07/16/25 12:00 07/17/25 06:18 Insulin Aspart (*Bkc) 100 Units/Ml SUB-Q 4 units Q6HR MIGUEL A Administration Protocol Insulin Glargine 20 units 07/17/25 09:00 Insulin Glargine (*Bkc) 100 Units/Ml SUB-Q QAM MIGUEL A Methylprednisolone Sodium Succinate 80 mg 07/18/25 09:00 Methylprednisolone Sod Succ 125 Mg Vial IV PUSH QAM MIGUEL A Multi-Ingred Cream/Lotion/Oil/Oint 1 applic 07/16/25 21:00 07/16/25 20:04 Mineral Oil/White Petrolatum Ointment EACH EYE 1 applic Q12HR MIGUEL A Administration Pantoprazole Sodium 40 mg 07/16/25 09:00 07/17/25 08:24 Pantoprazole Sodium Iv 40 Mg Vial IV PUSH 40 mg QAM MIGUEL A Administration Perflutren Lipid Microsphere 0 ml 07/16/25 08:17 Perflutren Lipid Microspheres 1.5 Ml Vial Diluted To 10 Ml Total Volume IV PUSH 07/19/25 08:18 ONCE PRN adequate visualization Protocol Sodium Chloride 10 ml 07/17/25 14:00 Central Line Flush IV PUSH Q8HR MIGUEL A Sodium Chloride 20 ml 07/17/25 06:35 Central Line Flush IV PUSH PRN PRN after blood draws Thiamine HCl 100 mg 07/16/25 09:00 07/17/25 08:25 Thiamine Hcl 100 Mg Tablet FEED TUBE 100 mg QAM MIGUEL A Administration Radiology Results: ITS Impressions Chest CTA 07/16/25 08:43 IMPRESSION: 1. No pulmonary embolus. 2. Moderate-sized left pneumothorax. 3. Mild pulmonary edema. 4. Left lung upper lobe nodules, which may be infection or less likely metastatic disease. 5. Moderate emphysema. Chest X-Ray 07/17/25 08:13 Impression: Mild CHF Labs Labs: Laboratory Results - last 24 hr 07/15/25 07/16/25 07/16/25 23:42 12:04 17:11 WBC Cancelled RBC Cancelled Hgb Cancelled Hct Cancelled MCV Cancelled MCH Cancelled MCHC Cancelled RDW Cancelled Plt Count Cancelled MPV Cancelled Immature Gran % (Auto) Cancelled Neut % (Auto) Cancelled Lymph % (Auto) Cancelled [place] % (Auto) Cancelled Eos % (Auto) Cancelled Baso % (Auto) Cancelled Lymph # (Auto) Cancelled [place] # (Auto) Cancelled Eos # (Auto) Cancelled Baso # (Auto) Cancelled Abs Immat Gran (auto) Cancelled Absolute Neuts (auto) Cancelled Absolute Nucleated RBC Cancelled Nucleated RBC % Cancelled % Immature Plt Fraction Cancelled Puncture Site ABG pH ABG pCO2 ABG pO2 ABG PO2/FiO2 Ratio ABG HCO3 ABG O2 Saturation ABG O2 Content ABG Base Excess A-a Gradient Oxyhemoglobin Carboxyhemoglobin Methemoglobin Reduced Hemoglobin Total Hemoglobin O2 Delivery Device O2 Liters/Min Minute Volume Vent Rate Vent Mode FiO2 Tidal Volume PEEP Peak Inspir Pressure Pressure Support Sodium Potassium Chloride Carbon Dioxide Anion Gap BUN Creatinine Estim Creat Clear Calc Estimated GFR Glucose POC Capillary Glucose 250 H 163 H Calcium Phosphorus Magnesium Total Bilirubin AST ALT Alkaline Phosphatase Total Protein Albumin 07/16/25 07/17/25 07/17/25 18:11 00:10 04:37 WBC 21.9 H RBC 4.07 L Hgb 12.2 L Hct 37.0 L MCV 90.9 MCH 30.0 MCHC 33.0 RDW 16.8 H Plt Count 179 MPV 9.4 Immature Gran % (Auto) Neut % (Auto) Lymph % (Auto) [place] % (Auto) Eos % (Auto) Baso % (Auto) Lymph # (Auto) [place] # (Auto) Eos # (Auto) Baso # (Auto) Abs Immat Gran (auto) Absolute Neuts (auto) Absolute Nucleated RBC Nucleated RBC % % Immature Plt Fraction Puncture Site ABG pH ABG pCO2 ABG pO2 ABG PO2/FiO2 Ratio ABG HCO3 ABG O2 Saturation ABG O2 Content ABG Base Excess A-a Gradient Oxyhemoglobin Carboxyhemoglobin Methemoglobin Reduced Hemoglobin Total Hemoglobin O2 Delivery Device O2 Liters/Min Minute Volume Vent Rate Vent Mode FiO2 Tidal Volume PEEP Peak Inspir Pressure Pressure Support Sodium 131 L Potassium 4.4 Chloride 97 L Carbon Dioxide 28 Anion Gap 6 BUN 47 H D Creatinine 1.17 Estim Creat Clear Calc 50 Estimated GFR > 60 Glucose 185 H POC Capillary Glucose 187 H 210 H Calcium 8.5 Phosphorus 4.0 Magnesium 2.2 Total Bilirubin 0.6 AST 59 ALT 40 Alkaline Phosphatase 58 Total Protein 6.6 Albumin 3.6 07/17/25 07/17/25 05:05 06:15 WBC RBC Hgb Hct MCV MCH MCHC RDW Plt Count MPV Immature Gran % (Auto) Neut % (Auto) Lymph % (Auto) [place] % (Auto) Eos % (Auto) Baso % (Auto) Lymph # (Auto) [place] # (Auto) Eos # (Auto) Baso # (Auto) Abs Immat Gran (auto) Absolute Neuts (auto) Absolute Nucleated RBC Nucleated RBC % % Immature Plt Fraction Puncture Site Right radial ABG pH 7.482 H ABG pCO2 33.9 L ABG pO2 74.4 L ABG PO2/FiO2 Ratio 2.98 ABG HCO3 24.8 ABG O2 Saturation 96.0 ABG O2 Content 17.8 ABG Base Excess 1.8 A-a Gradient 63.6 Oxyhemoglobin 94.3 Carboxyhemoglobin 0.8 Methemoglobin 0.0 Reduced Hemoglobin 4.9 Total Hemoglobin 13.4 O2 Delivery Device Ventilator O2 Liters/Min Not Reportable Minute Volume Not Reportable Vent Rate 20 Vent Mode Cmv FiO2 25 Tidal Volume 500 PEEP 5 Peak Inspir Pressure Not Reportable Pressure Support Not Reportable Sodium Potassium Chloride Carbon Dioxide Anion Gap BUN Creatinine Estim Creat Clear Calc Estimated GFR Glucose POC Capillary Glucose 256 H Calcium Phosphorus Magnesium Total Bilirubin AST ALT Alkaline Phosphatase Total Protein Albumin
[2025-07-17] MEDS: cefTRIAXone 2 GM in SODIUM CHLORIDE 0.9% IV 100 ML 200 ML IVPB (11:34)
[2025-07-17] MEDS: PROPOFOL IV EMULSION 100 ML 13.06 MG IV CONT ×2 (11:50→17:18)
[2025-07-17] MEDS: CENTRAL LINE FLUSH 10 ML IV PUSH ×2 (13:04→22:29)
[2025-07-17] MEDS: FENTANYL 2,500MCG/NS250ML(*CRX 2,500 MCG/250 ML BAG 10 MCG IV CONT (14:41)
--- NOTE | 2025-07-17 14:49 | PM.IMPN ---
Progress Note: A&P Assessment and Plan (1) Respiratory failure with hypoxia and hypercapnia: Qualifiers: Chronicity: acute Qualified Code(s): J96.01 - Acute respiratory failure with hypoxia; J96.02 - Acute respiratory failure with hypercapnia Code(s): J96.91 - Respiratory failure, unspecified with hypoxia; J96.92 - Respiratory failure, unspecified with hypercapnia Status: Acute Assessment and Plan: Multifactorial acute on chronic respiratory failure secondary to acute exacerbation of COPD, left pneumothorax and AFib with RVR Patient now intubated and sedated Vent settings reviewed and I have decreased the tidal volume to 450 and rate to 18 Left pneumothorax Status post chest tube placement which is to suction and there is no air leak at this time Empiric Rocephin for COPD exacerbation. No significant consolidation on infiltrates on the CT scan to suggest pneumonia., pending blood cultures Viral panel was negative Continue steroids but decrease the dose to q.a.m. Continue bronchodilators CT scan and chest x-ray reviewed Sedated with fentanyl and propofol at this time continue care per steamship agent (2) Acute exacerbation of chronic obstructive pulmonary disease: Code(s): J44.1 - Chronic obstructive pulmonary disease with (acute) exacerbation Status: Acute Assessment and Plan: See above (3) Pneumothorax, left: Code(s): J93.9 - Pneumothorax, unspecified Status: Acute Assessment and Plan: on Chest tube and gen surgery following monitor (4) Alcohol abuse: Code(s): F10.10 - Alcohol abuse, uncomplicated Status: Acute Assessment and Plan: Currently sedated with propofol and fentanyl Continue thiamine and folic acid (5) Hypertension: Code(s): I10 - Essential (primary) hypertension Status: Acute Assessment and Plan: Monitor at this time. Patient is sedated and on to Cardizem infusion. Hold other antihypertensives (6) Atrial fibrillation with rapid ventricular response: Code(s): I48.91 - Unspecified atrial fibrillation Status: Acute Assessment and Plan: AFib with RVR. Improved with Cardizem infusion. Continue at this time as long as blood pressure tolerates. Pending echocardiogram. Continue Lovenox. (7) Cardiomyopathy: Qualifiers: Cardiomyopathy type: unspecified Qualified Code(s): I42.9 - Cardiomyopathy, unspecified Code(s): I42.9 - Cardiomyopathy, unspecified Status: Acute Assessment and Plan: Check echocardiogram. (8) Electrolyte abnormality: Code(s): E87.8 - Other disorders of electrolyte and fluid balance, not elsewhere classified Status: Acute Assessment and Plan: Magnesium replacement ordered (9) Hyperglycemia: Code(s): R73.9 - Hyperglycemia, unspecified Status: Acute Assessment and Plan: Continue sliding scale insulin. Add Lantus. (10) Sepsis: Qualifiers: Sepsis type: sepsis due to unspecified organism Sepsis acute organ dysfunction status: without acute organ dysfunction Qualified Code(s): A41.9 - Sepsis, unspecified organism Code(s): A41.9 - Sepsis, unspecified organism Status: Acute Assessment and Plan: Secondary to UTI Urine culture ordered and pending Continue IV fluids continue Rocephin History of Proteus UTI which was sensitive to Rocephin (11) UTI (urinary tract infection): Code(s): N39.0 - Urinary tract infection, site not specified Status: Acute Assessment and Plan: See above Plan DVT prophylaxis -continue Lovenox therapeutic dose Stress ulcer prophylaxis -PPI Nutrition - advance Tube Feeds Code Status - Full Code continue care per steamship agent Subjective Date/time seen: 07/17/25 14:49 Interval history: Intubated and sedated. Review of Systems Review of Systems: ROS unobtainable: Yes unobtainable due to endotracheal tube, unobtainable due to medical condition and unobtainable due to mental status Exam Narrative: General: Pt is sedated, intubated and on mechanical ventilation Lungs/Chest: Trachea central, overall significantly decreased breath sounds bilaterally. No wheezing or crackles heard chest tube on the left with no air leak Cardiac: Irregularly irregular tachycardic. Normal S1 S2. No murmurs Circulation: Pedal pulses are intact and symmetrical. Abdomen: Decreased bowel sounds. Soft. NT. ND. Extremities: No clubbing, cyanosis or edema. Warm : Lau in place Neurologic: Despite low sedation patient follows commands intermittently but moves all 4 extremities spontaneously. Nodes is head on calling his name. Pupil slightly unequal with left slightly bigger than right of both are reactive to light Const: Other: Cam positive, RASS 2 HENMT: Other: OG and ET tube in place Eyes: Pupils: Equal, round and reactive pupils present (5 mm bilaterally) Neck: Neck: supple Resp: Other: Mechanical breath sounds Cardio: Rate: tachycardic Rhythm: abnormal rhythm GI: Inspection: non-distended : General: Yes bladder normal to palpation Neuro: Cranial nerves: Yes Equal, round and reactive pupils present (5 mm bilaterally) Other: Moves all 4 extremities freely Extrem: General: no edema Other: Pedal pulses faint, feet cool to touch. Objective Data Vital Signs Vital Signs: Vital Signs - 24 hr 07/16/25 15:00 07/16/25 15:30 07/16/25 15:34 Temperature 99.9 F H Pulse Rate 81 77 Respiratory Rate 20 20 Blood Pressure 93/75 L 92/77 L Pulse Oximetry 96 Oxygen Delivery Fraction of Inspired Oxygen 07/16/25 15:34 07/16/25 15:47 07/16/25 16:00 Temperature 100 F H Pulse Rate 79 77 77 Respiratory Rate 20 20 21 H Blood Pressure 96/73 L Pulse Oximetry 97 Oxygen Delivery Fraction of Inspired Oxygen 07/16/25 16:00 07/16/25 16:00 07/16/25 16:00 Temperature Pulse Rate 80 Respiratory Rate 20 Blood Pressure Pulse Oximetry 97 Oxygen Delivery Mechanical Ventilation Fraction of Inspired Oxygen 07/16/25 16:00 07/16/25 16:00 07/16/25 16:12 Temperature Pulse Rate 79 82 82 Respiratory Rate 23 H Blood Pressure 96/73 L Pulse Oximetry Oxygen Delivery Fraction of Inspired Oxygen 07/16/25 16:13 07/16/25 16:58 07/16/25 17:05 Temperature Pulse Rate 80 77 80 Respiratory Rate 21 H 20 Blood Pressure 96/77 L Pulse Oximetry 97 97 Oxygen Delivery Mechanical Ventilation Fraction of Inspired Oxygen 07/16/25 17:20 07/16/25 17:20 07/16/25 17:44 Temperature Pulse Rate 86 86 86 Respiratory Rate 20 Blood Pressure 102/90 102/90 Pulse Oximetry Oxygen Delivery Fraction of Inspired Oxygen 07/16/25 18:00 07/16/25 18:00 07/16/25 18:00 Temperature Pulse Rate 84 84 84 Respiratory Rate 21 H 21 H Blood Pressure 107/87 Pulse Oximetry Oxygen Delivery Fraction of Inspired Oxygen 07/16/25 18:00 07/16/25 18:00 07/16/25 18:50 Temperature 100.3 F H Pulse Rate 84 88 83 Respiratory Rate 19 27 H Blood Pressure 109/87 106/90 Pulse Oximetry 97 97 Oxygen Delivery Fraction of Inspired Oxygen 07/16/25 19:58 07/16/25 20:00 07/16/25 20:00 Temperature 100.5 F H Pulse Rate 86 83 90 Respiratory Rate 20 Blood Pressure 110/86 Pulse Oximetry 97 97 Oxygen Delivery Mechanical Ventilation Fraction of Inspired Oxygen 25 07/16/25 20:00 07/16/25 20:00 07/16/25 20:00 Temperature Pulse Rate 79 Respiratory Rate 21 H Blood Pressure Pulse Oximetry 96 Oxygen Delivery Mechanical Ventilation Fraction of Inspired Oxygen 25 07/16/25 20:00 07/16/25 20:00 07/16/25 21:00 Temperature 100.7 F H Pulse Rate 79 79 81 Respiratory Rate 21 H 18 Blood Pressure 110/86 116/89 Pulse Oximetry 96 Oxygen Delivery Fraction of Inspired Oxygen 07/16/25 22:00 07/16/25 22:00 07/16/25 22:00 Temperature Pulse Rate 87 87 87 Respiratory Rate 21 H 21 H Blood Pressure 118/91 H Pulse Oximetry Oxygen Delivery Fraction of Inspired Oxygen 07/16/25 22:00 07/16/25 22:00 07/16/25 23:00 Temperature 100.7 F H 100.7 F H Pulse Rate 87 87 83 Respiratory Rate 21 H 15 Blood Pressure 118/91 H 111/87 Pulse Oximetry 96 95 Oxygen Delivery Fraction of Inspired Oxygen 07/16/25 23:01 07/17/25 00:00 07/17/25 00:00 Temperature Pulse Rate 85 83 83 Respiratory Rate Blood Pressure 112/85 112/85 Pulse Oximetry 95 Oxygen Delivery Mechanical Ventilation Fraction of Inspired Oxygen 07/17/25 00:00 07/17/25 00:00 07/17/25 00:00 Temperature 100.6 F H Pulse Rate 83 83 81 Respiratory Rate 15 15 11 L Blood Pressure 112/85 Pulse Oximetry 95 Oxygen Delivery Fraction of Inspired Oxygen 07/17/25 00:00 07/17/25 00:00 07/17/25 00:00 Temperature Pulse Rate 91 Respiratory Rate Blood Pressure Pulse Oximetry 95 Oxygen Delivery Mechanical Ventilation Fraction of Inspired Oxygen 07/17/25 01:00 07/17/25 02:00 07/17/25 02:00 Temperature 100.4 F H 100.4 F H Pulse Rate 89 82 82 Respiratory Rate 15 11 L Blood Pressure 121/84 112/90 Pulse Oximetry 95 96 Oxygen Delivery Fraction of Inspired Oxygen 07/17/25 02:00 07/17/25 02:00 07/17/25 02:00 Temperature Pulse Rate 82 82 82 Respiratory Rate 11 L 11 L Blood Pressure 112/90 Pulse Oximetry Oxygen Delivery Fraction of Inspired Oxygen 07/17/25 02:12 07/17/25 03:00 07/17/25 03:55 Temperature 100 F H Pulse Rate 86 83 77 Respiratory Rate 20 20 Blood Pressure 115/90 Pulse Oximetry 96 96 Oxygen Delivery Mechanical Ventilation Fraction of Inspired Oxygen 07/17/25 03:55 07/17/25 04:00 07/17/25 04:00 Temperature Pulse Rate 77 83 83 Respiratory Rate 20 21 H 21 H Blood Pressure Pulse Oximetry Oxygen Delivery Fraction of Inspired Oxygen 07/17/25 04:00 07/17/25 04:00 07/17/25 04:00 Temperature 99.9 F H Pulse Rate 83 83 Respiratory Rate 21 H Blood Pressure 116/95 H 116/95 H Pulse Oximetry 96 Oxygen Delivery Fraction of Inspired Oxygen 07/17/25 04:00 07/17/25 04:00 07/17/25 05:00 Temperature 99.8 F H Pulse Rate 83 84 Respiratory Rate 22 H Blood Pressure 122/91 H Pulse Oximetry 96 96 Oxygen Delivery Mechanical Ventilation Fraction of Inspired Oxygen 07/17/25 05:05 07/17/25 06:00 07/17/25 06:00 Temperature Pulse Rate 86 85 85 Respiratory Rate 23 H Blood Pressure 119/92 H Pulse Oximetry 97 Oxygen Delivery Mechanical Ventilation Fraction of Inspired Oxygen 07/17/25 06:00 07/17/25 06:00 07/17/25 06:00 Temperature 99.8 F H Pulse Rate 85 85 85 Respiratory Rate 23 H 23 H Blood Pressure 119/92 H Pulse Oximetry 98 Oxygen Delivery Fraction of Inspired Oxygen 07/17/25 06:10 07/17/25 06:58 07/17/25 07:00 Temperature 99.7 F H Pulse Rate 85 89 81 Respiratory Rate 24 H Blood Pressure 119/92 H 113/91 H Pulse Oximetry 95 95 Oxygen Delivery Mechanical Ventilation Fraction of Inspired Oxygen 07/17/25 07:30 07/17/25 08:00 07/17/25 08:00 Temperature 99.6 F Pulse Rate 81 86 87 Respiratory Rate 23 H 25 H 25 H Blood Pressure 121/96 H Pulse Oximetry 94 Oxygen Delivery Fraction of Inspired Oxygen 07/17/25 08:00 07/17/25 08:00 07/17/25 08:00 Temperature Pulse Rate 87 87 Respiratory Rate 25 H Blood Pressure 121/96 H Pulse Oximetry Oxygen Delivery Fraction of Inspired Oxygen 25 07/17/25 08:00 07/17/25 08:00 07/17/25 08:20 Temperature Pulse Rate 94 88 Respiratory Rate 25 H Blood Pressure Pulse Oximetry 95 Oxygen Delivery Mechanical Ventilation Fraction of Inspired Oxygen 25 07/17/25 09:00 07/17/25 10:00 07/17/25 10:00 Temperature 99.6 F Pulse Rate 82 84 84 Respiratory Rate 27 H 20 20 Blood Pressure 128/88 Pulse Oximetry 95 Oxygen Delivery Fraction of Inspired Oxygen 07/17/25 10:00 07/17/25 10:00 07/17/25 10:00 Temperature 99.3 F Pulse Rate 84 80 84 Respiratory Rate 23 H Blood Pressure 116/92 H 109/94 H Pulse Oximetry 95 Oxygen Delivery Fraction of Inspired Oxygen 07/17/25 10:59 07/17/25 11:00 07/17/25 11:50 Temperature 98.9 F Pulse Rate 92 79 81 Respiratory Rate 23 H 23 H Blood Pressure 115/90 Pulse Oximetry 95 96 Oxygen Delivery Mechanical Ventilation Fraction of Inspired Oxygen 25 07/17/25 11:50 07/17/25 11:56 07/17/25 11:56 Temperature 98.8 F Pulse Rate 81 79 Respiratory Rate 23 H 25 H Blood Pressure 124/91 H Pulse Oximetry 99 Oxygen Delivery Fraction of Inspired Oxygen 25 07/17/25 11:59 07/17/25 12:00 07/17/25 12:00 Temperature Pulse Rate 74 88 Respiratory Rate 22 H 22 H Blood Pressure Pulse Oximetry 99 Oxygen Delivery Mechanical Ventilation Fraction of Inspired Oxygen 25 07/17/25 12:00 07/17/25 12:00 07/17/25 12:35 Temperature Pulse Rate 75 80 85 Respiratory Rate Blood Pressure 120/97 H 122/93 H Pulse Oximetry Oxygen Delivery Fraction of Inspired Oxygen 07/17/25 12:35 07/17/25 13:00 07/17/25 14:00 Temperature 99.2 F Pulse Rate 85 78 76 Respiratory Rate 22 H 24 H Blood Pressure 122/93 H 117/88 Pulse Oximetry 97 Oxygen Delivery Fraction of Inspired Oxygen 07/17/25 14:00 07/17/25 14:00 07/17/25 14:00 Temperature Pulse Rate 79 78 77 Respiratory Rate 24 H Blood Pressure 124/92 H Pulse Oximetry Oxygen Delivery Fraction of Inspired Oxygen 07/17/25 14:00 07/17/25 14:33 07/17/25 14:41 Temperature 99.3 F Pulse Rate 77 88 84 Respiratory Rate 24 H 25 H Blood Pressure 124/92 H Pulse Oximetry 97 96 Oxygen Delivery Mechanical Ventilation Fraction of Inspired Oxygen 07/17/25 14:41 Temperature Pulse Rate 84 Respiratory Rate 25 H Blood Pressure Pulse Oximetry Oxygen Delivery Fraction of Inspired Oxygen Intake/Output Intake/Output: Intake & Output 07/14/25 07/15/25 07/16/25 07/17/25 23:59 23:59 22:59 23:59 Intake Total 1000 2685.3 2034.8 Output Total 932 428 Balance 1000 1753.3 1606.8 Meds/Results Medications: Active Medications Generic Name Dose Route Start Last Admin Trade Name Freq PRN Reason Stop Dose Admin Albuterol/Ipratropium 3 ml 07/16/25 08:21 Ipratropium 0.5 Mg/Albuterol Sulfate 2.5 Mg (Base) Ampul.Neb 3 Ml INHALATION Q6HRT PRN Wheezing Buprenorphine HCl 0.3 mg 07/15/25 21:37 07/15/25 21:58 Buprenorphine Hcl (*Crx) 0.3 Mg/Ml Vial IV PUSH 0.3 mg On Hold: 07/16/25 08:20 Q6H PRN Administration Withdrawal Dextrose 12.5 gm 07/16/25 08:21 Dextrose 50% 25 Gm/50 Ml Syringe IV PUSH PRN PRN Hypoglycemia Protocol Enoxaparin Sodium 65 mg 07/16/25 09:00 07/17/25 08:25 Enoxaparin 80 Mg/0.8 Ml Syringe SUB-Q 65 mg Q12HR MIGUEL A Administration Folic Acid 1 mg 07/16/25 09:00 07/17/25 08:24 Folic Acid 1 Mg Tablet FEED TUBE 1 mg DAILY MIGUEL A Administration Glucagon 1 mg 07/16/25 08:21 Glucagon For Inj 1 Mg Vial IM PRN PRN Hypoglycemia Protocol Glucose 15 gm 07/16/25 08:21 Glucose Oral Gel 15 Gm Of Glucse In 37.5 Gm Tube PO PRN PRN Hypoglycemia Protocol Fentanyl Citrate 2,500 mcg in 250 mls @ 10 mls/hr 07/16/25 00:30 07/17/25 14:41 Fentanyl 2,500 Mcg/Ns 250 Ml IV CONT 100 mcg/hr .Q25H MIGUEL A 10 mls/hr Protocol Administration 100 MCG/HR Propofol 100 mls @ 13.062 mls/hr 07/16/25 05:25 07/17/25 14:00 Diprivan IV CONT 35 mcg/kg/min .Q7H40M MIGUEL A 13.06 mls/hr Protocol Titration 35 MCG/KG/MIN Dextrose 1,000 mls @ 100 mls/hr 07/16/25 08:21 Dextrose 5% 1,000 Ml IVPB PRN PRN Hypoglycemia Protocol Diltiazem HCl 100 mg in 100 mls @ 15 mls/hr 07/16/25 07:30 07/17/25 14:00 Cardizem 100 Mg/100 Ml IV CONT 15 mg/hr .Q6H40M MIGUEL A 15 mls/hr 15 MG/HR Infusion Ceftriaxone Sodium 2 gm/ 100 mls @ 200 mls/hr 07/16/25 11:00 07/17/25 12:04 Sodium Chloride IVPB Infused Q24H MIGUEL A Infusion Insulin Aspart 3 - 6 units 07/16/25 12:00 07/17/25 11:50 Insulin Aspart (*Bkc) 100 Units/Ml SUB-Q Not Given Q6HR MIGUEL A Protocol Insulin Glargine 20 units 07/17/25 09:00 07/17/25 10:00 Insulin Glargine (*Bkc) 100 Units/Ml SUB-Q 20 units QAM MIGUEL A Administration Methylprednisolone Sodium Succinate 80 mg 07/18/25 09:00 Methylprednisolone Sod Succ 125 Mg Vial IV PUSH QAM MIGUEL A Multi-Ingred Cream/Lotion/Oil/Oint 1 applic 07/16/25 21:00 07/17/25 10:00 Mineral Oil/White Petrolatum Ointment EACH EYE 1 applic Q12HR MIGUEL A Administration Pantoprazole Sodium 40 mg 07/16/25 09:00 07/17/25 08:24 Pantoprazole Sodium Iv 40 Mg Vial IV PUSH 40 mg QAM MIGUEL A Administration Perflutren Lipid Microsphere 0 ml 07/16/25 08:17 Perflutren Lipid Microspheres 1.5 Ml Vial Diluted To 10 Ml Total Volume IV PUSH 07/19/25 08:18 ONCE PRN adequate visualization Protocol Sodium Chloride 10 ml 07/17/25 14:00 07/17/25 13:04 Central Line Flush IV PUSH 10 ml Q8HR MIGUEL A Administration Sodium Chloride 20 ml 07/17/25 06:35 Central Line Flush IV PUSH PRN PRN after blood draws Thiamine HCl 100 mg 07/16/25 09:00 07/17/25 08:25 Thiamine Hcl 100 Mg Tablet FEED TUBE 100 mg QAM MIGUEL A Administration Radiology Results: ITS Impressions Chest CTA 07/16/25 08:43 IMPRESSION: 1. No pulmonary embolus. 2. Moderate-sized left pneumothorax. 3. Mild pulmonary edema. 4. Left lung upper lobe nodules, which may be infection or less likely metastatic disease. 5. Moderate emphysema. Chest X-Ray 07/17/25 08:13 Impression: Mild CHF Labs Labs: Laboratory Results - last 24 hr 07/15/25 07/15/25 07/16/25 21:11 23:42 17:11 WBC Cancelled RBC Cancelled Hgb Cancelled Hct Cancelled MCV Cancelled MCH Cancelled MCHC Cancelled RDW Cancelled Plt Count Cancelled MPV Cancelled Immature Gran % (Auto) Cancelled Neut % (Auto) Cancelled Lymph % (Auto) Cancelled [place] % (Auto) Cancelled Eos % (Auto) Cancelled Baso % (Auto) Cancelled Lymph # (Auto) Cancelled [place] # (Auto) Cancelled Eos # (Auto) Cancelled Baso # (Auto) Cancelled Abs Immat Gran (auto) Cancelled Absolute Neuts (auto) Cancelled Absolute Nucleated RBC Cancelled Nucleated RBC % Cancelled % Immature Plt Fraction Cancelled Puncture Site ABG pH ABG pCO2 ABG pO2 ABG PO2/FiO2 Ratio ABG HCO3 ABG O2 Saturation ABG O2 Content ABG Base Excess A-a Gradient Oxyhemoglobin Carboxyhemoglobin Methemoglobin Reduced Hemoglobin Total Hemoglobin O2 Delivery Device O2 Liters/Min Minute Volume Vent Rate Vent Mode FiO2 Expiratory Pressure 6 Tidal Volume PEEP Inspiratory Pressure 12 Peak Inspir Pressure Pressure Support Sodium Potassium Chloride Carbon Dioxide Anion Gap BUN Creatinine Estim Creat Clear Calc Estimated GFR Glucose POC Capillary Glucose 163 H Calcium Phosphorus Magnesium Total Bilirubin AST ALT Alkaline Phosphatase Total Protein Albumin 07/16/25 07/17/25 07/17/25 18:11 00:10 04:37 WBC 21.9 H RBC 4.07 L Hgb 12.2 L Hct 37.0 L MCV 90.9 MCH 30.0 MCHC 33.0 RDW 16.8 H Plt Count 179 MPV 9.4 Immature Gran % (Auto) Neut % (Auto) Lymph % (Auto) [place] % (Auto) Eos % (Auto) Baso % (Auto) Lymph # (Auto) [place] # (Auto) Eos # (Auto) Baso # (Auto) Abs Immat Gran (auto) Absolute Neuts (auto) Absolute Nucleated RBC Nucleated RBC % % Immature Plt Fraction Puncture Site ABG pH ABG pCO2 ABG pO2 ABG PO2/FiO2 Ratio ABG HCO3 ABG O2 Saturation ABG O2 Content ABG Base Excess A-a Gradient Oxyhemoglobin Carboxyhemoglobin Methemoglobin Reduced Hemoglobin Total Hemoglobin O2 Delivery Device O2 Liters/Min Minute Volume Vent Rate Vent Mode FiO2 Expiratory Pressure Tidal Volume PEEP Inspiratory Pressure Peak Inspir Pressure Pressure Support Sodium 131 L Potassium 4.4 Chloride 97 L Carbon Dioxide 28 Anion Gap 6 BUN 47 H D Creatinine 1.17 Estim Creat Clear Calc 50 Estimated GFR > 60 Glucose 185 H POC Capillary Glucose 187 H 210 H Calcium 8.5 Phosphorus 4.0 Magnesium 2.2 Total Bilirubin 0.6 AST 59 ALT 40 Alkaline Phosphatase 58 Total Protein 6.6 Albumin 3.6 07/17/25 07/17/25 07/17/25 05:05 06:15 11:49 WBC RBC Hgb Hct MCV MCH MCHC RDW Plt Count MPV Immature Gran % (Auto) Neut % (Auto) Lymph % (Auto) [place] % (Auto) Eos % (Auto) Baso % (Auto) Lymph # (Auto) [place] # (Auto) Eos # (Auto) Baso # (Auto) Abs Immat Gran (auto) Absolute Neuts (auto) Absolute Nucleated RBC Nucleated RBC % % Immature Plt Fraction Puncture Site Right radial ABG pH 7.482 H ABG pCO2 33.9 L ABG pO2 74.4 L ABG PO2/FiO2 Ratio 2.98 ABG HCO3 24.8 ABG O2 Saturation 96.0 ABG O2 Content 17.8 ABG Base Excess 1.8 A-a Gradient 63.6 Oxyhemoglobin 94.3 Carboxyhemoglobin 0.8 Methemoglobin 0.0 Reduced Hemoglobin 4.9 Total Hemoglobin 13.4 O2 Delivery Device Ventilator O2 Liters/Min Not Reportable Minute Volume Not Reportable Vent Rate 20 Vent Mode Cmv FiO2 25 Expiratory Pressure Tidal Volume 500 PEEP 5 Inspiratory Pressure Peak Inspir Pressure Not Reportable Pressure Support Not Reportable Sodium Potassium Chloride Carbon Dioxide Anion Gap BUN Creatinine Estim Creat Clear Calc Estimated GFR Glucose POC Capillary Glucose 256 H 189 H Calcium Phosphorus Magnesium Total Bilirubin AST ALT Alkaline Phosphatase Total Protein Albumin Quality VTE Prophylaxis VTE prophylaxis: pharmacologic ordered
[2025-07-17] MEDS: IPRATROPIUM 0.5 MG/ALBUTEROL SULFATE 2.5 MG (BASE) AMPUL.NEB 3 ML INHALATION (19:36)
[2025-07-17] MEDS: PROPOFOL IV EMULSION 100 ML 18.66 MG IV CONT (23:20)
[2025-07-18] VITALS (102 sets, daily range): BP systolic 83–144; BP diastolic 56–110; PULSE 42–98; RESP 15–31; TEMP 36.6–37.4; O2SAT 91–100
[2025-07-18] MEDS: PROPOFOL IV EMULSION 100 ML 18.66 MG IV CONT ×2 (03:44→09:55)
[2025-07-18 04:22] LABS: Hematocrit 35.3 % (42.0-52.0); Hemoglobin 11.6 g/dL (14.0-18.0); Mean Corpuscular HGB Conc 32.9 g/dl (32-36); Mean Corpuscular Hemoglobin 29.6 pg (26-34); Mean Corpuscular Volume 90.1 fl (80-100); Platelet Count Result 149 k/mm3 (150-375); Red Blood Count 3.92 M/mm3 (4.6-6.20); White Blood Count 18.4 K/mm3 (4.5-10.0)
[2025-07-18 04:42] LABS: Alanine Aminotransferase 30 U/L (6-50); Albumin Level 3.2 g/dL (3.5-5.1); Alkaline Phosphatase 50 U/L (38-126); Anion Gap 3 mmol/L (4-12); Aspartate Amino Transferase 34 U/L (17-59); Bilirubin,Total 0.2 mg/dL (0.2-1.3); Blood Urea Nitrogen 48 mg/dL (9-20); Calcium 7.8 mg/dL (8.4-10.2); Carbon Dioxide 28 mmol/L (22-30); Chloride 101 mmol/L (98-107); Estimated CRCL calculation 65 ml/min; Estimated Glomerular Filt Rate > 60; Glucose 170 mg/dL (65-110); Magnesium 2.1 mg/dL (1.6-2.3); Potassium 4.0 mmol/L (3.4-5.0); Sodium 132 mmol/L (137-145); Total Protein 6.1 g/dL (6.3-8.2)
[2025-07-18 05:05] LABS: Alveolar/Arterial O2 Gradient 58.0 mmHg; Carboxyhemoglobin 0.6 % THb (0-2.0); Fractional Inspired Oxygen 25 %; HCO3 ABG 26.1 mEq/l (22.0-26.0); Methemoglobin ABG 0.1 %THb (0-1.5); Oxygen Content ABG 17.6 %vol (16.0-22.0); Oxygen Saturation ABG 96.1 % (95.0-100.0); PCO2 ABG 36.6 mmHg (35.0-45.0); PO2 ABG 76.8 mmHg (80.0-100.0); PO2 FiO2 Ratio Arterial Blood 3.07 %; Reduced Hemoglobin 4.8 %THb (0-5.0)
[2025-07-18 05:22] LABS: Arterial Blood Gas Tidal Volume 450 ml; Arterial Blood Gas Ventilator rate 18 /MIN; Modified Allen's Test Pass; Site Drawn LEFT RADIAL
[2025-07-18] MEDS: INSULIN ASPART (*BKC) 100 UNITS/ML SUB-Q (06:20)
[2025-07-18] MEDS: CENTRAL LINE FLUSH 10 ML IV PUSH ×3 (06:21→21:27)
[2025-07-18] MEDS: dilTIAZem 100 MG/100 ML 100 MG/100 ML BAG 15 MG IV CONT ×2 (06:42)
[2025-07-18] MEDS: FENTANYL 2,500MCG/NS250ML(*CRX 2,500 MCG/250 ML BAG 10 MCG IV CONT (08:45)
--- NOTE | 2025-07-18 09:20 | P.PNINT_ITS ---
Progress Note: A&P Assessment and Plan (1) Respiratory failure with hypoxia and hypercapnia: Qualifiers: Chronicity: acute Qualified Code(s): J96.01 - Acute respiratory failure with hypoxia; J96.02 - Acute respiratory failure with hypercapnia Code(s): J96.91 - Respiratory failure, unspecified with hypoxia; J96.92 - Respiratory failure, unspecified with hypercapnia Status: Acute Assessment and Plan: Multifactorial acute on chronic respiratory failure secondary to acute exacerbation of COPD, left pneumothorax and AFib with RVR Patient now intubated and sedated Vent settings reviewed and I have decreased the tidal volume to 420 and rate to 18 Left pneumothorax Status post chest tube placement which is to suction and there is no air leak at this time Empiric Rocephin for COPD exacerbation. No significant consolidation on infiltrates on the CT scan to suggest pneumonia. Negative blood cultures till now Viral panel was negative Continue steroids and bronchodilators CT scan and chest x-ray reviewed Sedated with fentanyl and propofol at this time. At Located Within [facility] 07/18 sedation holiday was performed to evaluate patient for weaning trial. Patient became tachypneic with respiratory rate in high 30s with increased respiratory distress and work of breathing. Patient was diaphoretic. Sedation holiday was aborted and patient was placed back on sedation. Patient never went on PSV (2) Acute exacerbation of chronic obstructive pulmonary disease: Code(s): J44.1 - Chronic obstructive pulmonary disease with (acute) exacerbation Status: Acute Assessment and Plan: See above (3) Pneumothorax, left: Code(s): J93.9 - Pneumothorax, unspecified Status: Acute Assessment and Plan: See above (4) Alcohol abuse: Code(s): F10.10 - Alcohol abuse, uncomplicated Status: Acute Assessment and Plan: Currently sedated with propofol and fentanyl Continue thiamine and folic acid (5) Hypertension: Code(s): I10 - Essential (primary) hypertension Status: Acute Assessment and Plan: Monitor at this time. Patient is sedated and on Cardizem infusion. Hold other antihypertensives (6) Atrial fibrillation with rapid ventricular response: Code(s): I48.91 - Unspecified atrial fibrillation Status: Acute Assessment and Plan: AFib with RVR. Improved with Cardizem infusion. Continue at this time as long as blood pressure tolerates. Continue Lovenox. EchoSummary 1. Left ventricular chamber dimension is normal. 2. Left ventricular systolic function is normal, estimated at 50-55%. 3. There is moderately increased left ventricular wall thickness. 4. Right ventricular systolic function is normal. 5. Left atrial chamber dimension is severely enlarged. 6. Right atrial chamber dimension is moderately enlarged. 7. There is moderate to severe mitral valve regurgitation. 8. There is mild tricuspid valve regurgitation. 9. Pulmonary hypertension, estimated pulmonary arterial systolic pressure is 45 mmHg. (7) Cardiomyopathy: Qualifiers: Cardiomyopathy type: unspecified Qualified Code(s): I42.9 - Cardiomyopathy, unspecified Code(s): I42.9 - Cardiomyopathy, unspecified Status: Acute Assessment and Plan: Echocardiogram as below (8) Electrolyte abnormality: Code(s): E87.8 - Other disorders of electrolyte and fluid balance, not elsewhere classified Status: Acute Assessment and Plan: Magnesium replacement ordered (9) Hyperglycemia: Code(s): R73.9 - Hyperglycemia, unspecified Status: Acute Assessment and Plan: Continue sliding scale insulin. Continue Lantus. (10) Sepsis: Qualifiers: Sepsis type: sepsis due to unspecified organism Sepsis acute organ dysfunction status: without acute organ dysfunction Qualified Code(s): A41.9 - Sepsis, unspecified organism Code(s): A41.9 - Sepsis, unspecified organism Status: Acute Assessment and Plan: Secondary to UTI Urine culture ordered and pending Continue IV fluids continue Rocephin History of Proteus UTI which was sensitive to Rocephin (11) UTI (urinary tract infection): Code(s): N39.0 - Urinary tract infection, site not specified Status: Acute Assessment and Plan: See above Plan DVT prophylaxis -continue Lovenox therapeutic dose Stress ulcer prophylaxis -PPI Nutrition -continue Tube Feeds Code Status - Full Code Total Critical Care Time - 32 minutes Due to a high probability of clinically significant, life threatening deterioration, the patient required my highest level of preparedness to intervene emergently and I personally spent this critical care time directly and personally managing the patient. This critical care time included obtaining a history; examining the patient; pulse oximetry; ordering and review of studies; arranging urgent treatment with development of a management plan; evaluation of patient's response to treatment; frequent reassessment; and discussions with other providers. It was exclusive of separately billable procedures and treating other patients and teaching time. Please see Assessment and Plan section and the rest of the note for further information on patient assessment and treatment Subjective Date/time seen: 07/18/25 Overnight events reviewed. Afebrile Continues to be on mechanical ventilation 25% FiO2 On Cardizem infusion Continues to be sedated with propofol and fentanyl Other Vitals acceptable Review of Systems Review of Systems: ROS unobtainable: Yes unobtainable due to endotracheal tube, unobtainable due to medical condition and unobtainable due to mental status Exam Narrative: General: Pt is sedated, intubated and on mechanical ventilation Lungs/Chest: Trachea central, overall significantly decreased breath sounds bilaterally. No wheezing or crackles heard chest tube on the left with no air leak Cardiac: Irregularly irregular tachycardic. Normal S1 S2. No murmurs Circulation: Pedal pulses are intact and symmetrical. Abdomen: Decreased bowel sounds. Soft. NT. ND. Extremities: No clubbing, cyanosis or edema. Warm : Lau in place Neurologic: Despite low sedation patient follows commands intermittently but moves all 4 extremities spontaneously. Nodes is head on calling his name. Pupil slightly unequal with left slightly bigger than right of both are reactive to light Objective Data Vital Signs Vital Signs: Vital Signs - 24 hr 07/17/25 10:00 07/17/25 10:00 07/17/25 10:00 Temperature Pulse Rate 84 84 84 Respiratory Rate 20 20 Blood Pressure 116/92 H Pulse Oximetry Oxygen Delivery Fraction of Inspired Oxygen 07/17/25 10:00 07/17/25 10:00 07/17/25 10:59 Temperature 37.4 C Pulse Rate 80 84 92 Respiratory Rate 23 H Blood Pressure 109/94 H Pulse Oximetry 95 95 Oxygen Delivery Mechanical Ventilation Fraction of Inspired Oxygen 07/17/25 11:00 07/17/25 11:50 07/17/25 11:50 Temperature 37.2 C Pulse Rate 79 81 81 Respiratory Rate 23 H 23 H 23 H Blood Pressure 115/90 Pulse Oximetry 96 Oxygen Delivery Fraction of Inspired Oxygen 07/17/25 11:56 07/17/25 11:56 07/17/25 11:59 Temperature 37.1 C Pulse Rate 79 Respiratory Rate 25 H Blood Pressure 124/91 H Pulse Oximetry 99 99 Oxygen Delivery Mechanical Ventilation Fraction of Inspired Oxygen 07/17/25 12:00 07/17/25 12:00 07/17/25 12:00 Temperature Pulse Rate 74 88 75 Respiratory Rate 22 H 22 H Blood Pressure 120/97 H Pulse Oximetry Oxygen Delivery Fraction of Inspired Oxygen 07/17/25 12:00 07/17/25 12:35 07/17/25 12:35 Temperature Pulse Rate 80 85 85 Respiratory Rate Blood Pressure 122/93 H 122/93 H Pulse Oximetry Oxygen Delivery Fraction of Inspired Oxygen 07/17/25 13:00 07/17/25 14:00 07/17/25 14:00 Temperature 37.3 C Pulse Rate 78 76 79 Respiratory Rate 22 H 24 H 24 H Blood Pressure 117/88 Pulse Oximetry 97 Oxygen Delivery Fraction of Inspired Oxygen 07/17/25 14:00 07/17/25 14:00 07/17/25 14:00 Temperature 37.4 C Pulse Rate 78 77 77 Respiratory Rate 24 H Blood Pressure 124/92 H 124/92 H Pulse Oximetry 97 Oxygen Delivery Fraction of Inspired Oxygen 07/17/25 14:33 07/17/25 14:41 07/17/25 14:41 Temperature Pulse Rate 88 84 84 Respiratory Rate 25 H 25 H Blood Pressure Pulse Oximetry 96 Oxygen Delivery Mechanical Ventilation Fraction of Inspired Oxygen 07/17/25 15:00 07/17/25 16:00 07/17/25 16:00 Temperature 37.4 C Pulse Rate 88 Respiratory Rate 24 H Blood Pressure 130/93 H Pulse Oximetry 98 97 Oxygen Delivery Mechanical Ventilation Fraction of Inspired Oxygen 25 07/17/25 16:00 07/17/25 16:00 07/17/25 16:00 Temperature 37.6 C Pulse Rate 76 81 81 Respiratory Rate 26 H 25 H 25 H Blood Pressure 130/90 Pulse Oximetry 97 Oxygen Delivery Fraction of Inspired Oxygen 07/17/25 16:00 07/17/25 16:00 07/17/25 17:00 Temperature 37.6 C Pulse Rate 75 75 83 Respiratory Rate 27 H Blood Pressure 130/90 136/86 Pulse Oximetry 96 Oxygen Delivery Fraction of Inspired Oxygen 07/17/25 17:18 07/17/25 17:18 07/17/25 17:19 Temperature Pulse Rate 81 81 78 Respiratory Rate 28 H 28 H Blood Pressure 126/86 Pulse Oximetry Oxygen Delivery Fraction of Inspired Oxygen 07/17/25 17:19 07/17/25 17:20 07/17/25 18:00 Temperature Pulse Rate 78 88 72 Respiratory Rate Blood Pressure 126/86 Pulse Oximetry 96 Oxygen Delivery Mechanical Ventilation Fraction of Inspired Oxygen 25 07/17/25 18:00 07/17/25 18:00 07/17/25 18:00 Temperature 37.4 C Pulse Rate 77 77 81 Respiratory Rate 26 H 26 H 25 H Blood Pressure 116/92 H Pulse Oximetry 95 Oxygen Delivery Fraction of Inspired Oxygen 07/17/25 18:00 07/17/25 18:30 07/17/25 19:00 Temperature 37.4 C Pulse Rate 78 74 74 Respiratory Rate 26 H 26 H Blood Pressure 116/92 H 132/81 Pulse Oximetry 96 Oxygen Delivery Fraction of Inspired Oxygen 07/17/25 19:41 07/17/25 19:45 07/17/25 20:00 Temperature Pulse Rate 74 74 80 Respiratory Rate 25 H 30 H Blood Pressure Pulse Oximetry 94 Oxygen Delivery Mechanical Ventilation Fraction of Inspired Oxygen 25 07/17/25 20:00 07/17/25 20:00 07/17/25 20:00 Temperature Pulse Rate 80 73 Respiratory Rate Blood Pressure 130/87 Pulse Oximetry 97 Oxygen Delivery Mechanical Ventilation Fraction of Inspired Oxygen 25 07/17/25 20:00 07/17/25 20:00 07/17/25 20:07 Temperature 37.5 C Pulse Rate 72 80 Respiratory Rate 29 H 30 H Blood Pressure 130/87 Pulse Oximetry 97 Oxygen Delivery Fraction of Inspired Oxygen 25 07/17/25 21:00 07/17/25 21:29 07/17/25 21:30 Temperature 37.4 C Pulse Rate 76 85 81 Respiratory Rate 25 H 27 H 28 H Blood Pressure 113/85 Pulse Oximetry Oxygen Delivery Fraction of Inspired Oxygen 07/17/25 22:00 07/17/25 22:00 07/17/25 22:00 Temperature Pulse Rate 75 75 75 Respiratory Rate 23 H 23 H Blood Pressure 111/80 Pulse Oximetry Oxygen Delivery Fraction of Inspired Oxygen 07/17/25 22:00 07/17/25 22:00 07/17/25 23:00 Temperature 37.4 C 37.4 C Pulse Rate 75 76 76 Respiratory Rate 23 H 23 H Blood Pressure 111/80 121/89 Pulse Oximetry 97 96 Oxygen Delivery Fraction of Inspired Oxygen 07/17/25 23:17 07/17/25 23:17 07/17/25 23:20 Temperature Pulse Rate 76 72 76 Respiratory Rate 21 H 21 H Blood Pressure Pulse Oximetry 98 Oxygen Delivery Mechanical Ventilation Fraction of Inspired Oxygen 25 /04/25 00:00 07/18/25 00:00 07/18/25 00:00 Temperature Pulse Rate 74 74 71 Respiratory Rate 23 H Blood Pressure 114/77 114/77 Pulse Oximetry Oxygen Delivery Fraction of Inspired Oxygen 07/18/25 00:00 07/18/25 00:00 07/18/25 00:00 Temperature 37.4 C Pulse Rate 76 77 Respiratory Rate 24 H Blood Pressure 114/77 Pulse Oximetry 98 98 Oxygen Delivery Mechanical Ventilation Fraction of Inspired Oxygen 07/18/25 00:00 07/18/25 00:01 07/18/25 01:00 Temperature Pulse Rate 79 90 Respiratory Rate 23 H 29 H Blood Pressure Pulse Oximetry Oxygen Delivery Fraction of Inspired Oxygen 07/18/25 01:00 07/18/25 02:00 07/18/25 02:00 Temperature 37.4 C Pulse Rate 81 73 73 Respiratory Rate 26 H 21 H 21 H Blood Pressure 144/84 H Pulse Oximetry 98 Oxygen Delivery Fraction of Inspired Oxygen 07/18/25 02:00 07/18/25 02:00 07/18/25 02:00 Temperature 37.3 C Pulse Rate 73 73 73 Respiratory Rate 21 H Blood Pressure 121/91 H 121/91 H Pulse Oximetry 98 Oxygen Delivery Fraction of Inspired Oxygen 07/18/25 03:00 07/18/25 03:12 07/18/25 03:44 Temperature 37.2 C Pulse Rate 68 71 82 Respiratory Rate 20 27 H Blood Pressure 111/75 Pulse Oximetry 99 99 Oxygen Delivery Mechanical Ventilation Fraction of Inspired Oxygen 07/18/25 03:44 07/18/25 03:53 07/18/25 04:00 Temperature Pulse Rate 82 87 70 Respiratory Rate 27 H 29 H 22 H Blood Pressure Pulse Oximetry Oxygen Delivery Fraction of Inspired Oxygen 07/18/25 04:00 07/18/25 04:00 07/18/25 04:00 Temperature 37.1 C Pulse Rate 70 70 70 Respiratory Rate 22 H 22 H Blood Pressure 121/73 121/73 Pulse Oximetry 98 Oxygen Delivery Fraction of Inspired Oxygen 07/18/25 04:00 07/18/25 04:00 07/18/25 04:00 Temperature Pulse Rate 70 Respiratory Rate Blood Pressure Pulse Oximetry 98 Oxygen Delivery Mechanical Ventilation Fraction of Inspired Oxygen 07/18/25 05:00 07/18/25 05:10 07/18/25 06:00 Temperature Pulse Rate 70 72 68 Respiratory Rate 23 H Blood Pressure 124/72 112/77 Pulse Oximetry 98 98 Oxygen Delivery Mechanical Ventilation Fraction of Inspired Oxygen 07/18/25 06:00 07/18/25 06:00 07/18/25 06:08 Temperature 36.6 C Pulse Rate 68 80 75 Respiratory Rate 25 H 27 H Blood Pressure 112/77 Pulse Oximetry 98 Oxygen Delivery Fraction of Inspired Oxygen 07/18/25 06:08 07/18/25 06:39 07/18/25 06:39 Temperature Pulse Rate 76 77 62 Respiratory Rate 27 H 21 H 24 H Blood Pressure Pulse Oximetry Oxygen Delivery Fraction of Inspired Oxygen 07/18/25 06:41 07/18/25 06:42 07/18/25 06:52 Temperature Pulse Rate 67 67 67 Respiratory Rate 21 H Blood Pressure 104/71 104/71 Pulse Oximetry Oxygen Delivery Fraction of Inspired Oxygen 07/18/25 06:53 07/18/25 07:00 07/18/25 07:00 Temperature Pulse Rate 67 62 76 Respiratory Rate 21 H 20 25 H Blood Pressure 122/76 Pulse Oximetry 98 98 Oxygen Delivery Fraction of Inspired Oxygen 07/18/25 07:01 07/18/25 07:03 07/18/25 07:30 Temperature Pulse Rate 81 71 66 Respiratory Rate 26 H 27 H 20 Blood Pressure 122/76 Pulse Oximetry 98 98 Oxygen Delivery Fraction of Inspired Oxygen 07/18/25 07:31 07/18/25 07:39 07/18/25 07:40 Temperature Pulse Rate 73 73 86 Respiratory Rate 20 24 H 25 H Blood Pressure 110/70 Pulse Oximetry 98 Oxygen Delivery Fraction of Inspired Oxygen 07/18/25 08:00 07/18/25 08:00 07/18/25 08:00 Temperature Pulse Rate 89 Respiratory Rate Blood Pressure Pulse Oximetry 98 Oxygen Delivery Mechanical Ventilation Fraction of Inspired Oxygen 07/18/25 08:00 07/18/25 08:02 07/18/25 08:24 Temperature 36.8 C Pulse Rate 82 83 98 Respiratory Rate 29 H 25 H Blood Pressure 137/90 Pulse Oximetry 100 99 91 Oxygen Delivery Mechanical Ventilation Fraction of Inspired Oxygen 07/18/25 08:42 Temperature Pulse Rate 79 Respiratory Rate 30 H Blood Pressure Pulse Oximetry Oxygen Delivery Fraction of Inspired Oxygen Intake/Output Intake/Output: Intake & Output 07/15/25 07/16/25 07/17/25 07/18/25 23:59 22:59 23:59 23:59 Intake Total 1000 2685.3 2791.0 1105.5 Output Total 932 810 845 Balance 1000 1753.3 1981.0 260.5 Meds/Results Medications: Active Medications Generic Name Dose Route Start Last Admin Trade Name Freq PRN Reason Stop Dose Admin Albuterol/Ipratropium 3 ml 07/16/25 08:21 07/17/25 19:36 Ipratropium 0.5 Mg/Albuterol Sulfate 2.5 Mg (Base) Ampul.Neb 3 Ml INHALATION 3 ml Q6HRT PRN Administration Wheezing Buprenorphine HCl 0.3 mg 07/15/25 21:37 07/15/25 21:58 Buprenorphine Hcl (*Crx) 0.3 Mg/Ml Vial IV PUSH 0.3 mg On Hold: 07/16/25 08:20 Q6H PRN Administration Withdrawal Dextrose 12.5 gm 07/16/25 08:21 Dextrose 50% 25 Gm/50 Ml Syringe IV PUSH PRN PRN Hypoglycemia Protocol Enoxaparin Sodium 65 mg 07/16/25 09:00 07/17/25 20:10 Enoxaparin 80 Mg/0.8 Ml Syringe SUB-Q 65 mg Q12HR MIGUEL A Administration Folic Acid 1 mg 07/16/25 09:00 07/17/25 08:24 Folic Acid 1 Mg Tablet FEED TUBE 1 mg DAILY MIGUEL A Administration Glucagon 1 mg 07/16/25 08:21 Glucagon For Inj 1 Mg Vial IM PRN PRN Hypoglycemia Protocol Glucose 15 gm 07/16/25 08:21 Glucose Oral Gel 15 Gm Of Glucse In 37.5 Gm Tube PO PRN PRN Hypoglycemia Protocol Fentanyl Citrate 2,500 mcg in 250 mls @ 0 mls/hr 07/16/25 00:30 07/18/25 07:39 Fentanyl 2,500 Mcg/Ns 250 Ml IV CONT 0 mcg/hr .Q0M MIGUEL A 0 mls/hr Protocol Titration Propofol 100 mls @ 18.66 mls/hr 07/16/25 05:25 07/18/25 08:42 Diprivan IV CONT 50 mcg/kg/min .Q5H22M MIGUEL A 18.66 mls/hr Protocol Titration 50 MCG/KG/MIN Dextrose 1,000 mls @ 100 mls/hr 07/16/25 08:21 Dextrose 5% 1,000 Ml IVPB PRN PRN Hypoglycemia Protocol Diltiazem HCl 100 mg in 100 mls @ 15 mls/hr 07/16/25 07:30 07/18/25 06:42 Cardizem 100 Mg/100 Ml IV CONT 15 mg/hr .Q6H40M MIGUEL A 15 mls/hr 15 MG/HR Administration Ceftriaxone Sodium 2 gm/ 100 mls @ 200 mls/hr 07/16/25 11:00 07/17/25 12:04 Sodium Chloride IVPB Infused Q24H MIGUEL A Infusion Insulin Aspart 3 - 6 units 07/16/25 12:00 07/18/25 06:20 Insulin Aspart (*Bkc) 100 Units/Ml SUB-Q 3 units Q6HR MIGUEL A Administration Protocol Insulin Glargine 20 units 07/17/25 09:00 07/17/25 10:00 Insulin Glargine (*Bkc) 100 Units/Ml SUB-Q 20 units QAM MIGUEL A Administration Methylprednisolone Sodium Succinate 80 mg 07/18/25 09:00 Methylprednisolone Sod Succ 125 Mg Vial IV PUSH QAM MIGUEL A Multi-Ingred Cream/Lotion/Oil/Oint 1 applic 07/16/25 21:00 07/17/25 20:11 Mineral Oil/White Petrolatum Ointment EACH EYE 1 applic Q12HR MIGUEL A Administration Pantoprazole Sodium 40 mg 07/16/25 09:00 07/17/25 08:24 Pantoprazole Sodium Iv 40 Mg Vial IV PUSH 40 mg QAM MIGUEL A Administration Perflutren Lipid Microsphere 0 ml 07/16/25 08:17 Perflutren Lipid Microspheres 1.5 Ml Vial Diluted To 10 Ml Total Volume IV PUSH 07/19/25 08:18 ONCE PRN adequate visualization Protocol Sodium Chloride 10 ml 07/17/25 14:00 07/18/25 06:21 Central Line Flush IV PUSH 10 ml Q8HR MIGUEL A Administration Sodium Chloride 20 ml 07/17/25 06:35 Central Line Flush IV PUSH PRN PRN after blood draws Thiamine HCl 100 mg 07/16/25 09:00 07/17/25 08:25 Thiamine Hcl 100 Mg Tablet FEED TUBE 100 mg QAM MIGUEL A Administration Radiology Results: ITS Impressions Chest CTA 07/16/25 08:43 IMPRESSION: 1. No pulmonary embolus. 2. Moderate-sized left pneumothorax. 3. Mild pulmonary edema. 4. Left lung upper lobe nodules, which may be infection or less likely metastatic disease. 5. Moderate emphysema. Chest X-Ray 07/18/25 08:30 Impression: Mild CHF Labs Labs: Laboratory Results - last 24 hr 07/15/25 07/17/25 07/17/25 21:11 11:49 17:21 WBC RBC Hgb Hct MCV MCH MCHC RDW Plt Count MPV Puncture Site ABG pH ABG pCO2 ABG pO2 ABG PO2/FiO2 Ratio ABG HCO3 ABG O2 Saturation ABG O2 Content ABG Base Excess A-a Gradient Oxyhemoglobin Carboxyhemoglobin Methemoglobin Reduced Hemoglobin Total Hemoglobin O2 Delivery Device O2 Liters/Min Minute Volume Vent Rate Vent Mode FiO2 Expiratory Pressure 6 Tidal Volume PEEP Inspiratory Pressure 12 Peak Inspir Pressure Pressure Support Sodium Potassium Chloride Carbon Dioxide Anion Gap BUN Creatinine Estim Creat Clear Calc Estimated GFR Glucose POC Capillary Glucose 189 H 212 H Calcium Phosphorus Magnesium Total Bilirubin AST ALT Alkaline Phosphatase Total Protein Albumin 07/17/25 07/18/25 07/18/25 23:41 04:17 04:37 WBC 18.4 H RBC 3.92 L Hgb 11.6 L Hct 35.3 L MCV 90.1 MCH 29.6 MCHC 32.9 RDW 17.1 H Plt Count 149 L MPV 9.5 Puncture Site Left radial ABG pH 7.471 H ABG pCO2 36.6 ABG pO2 76.8 L ABG PO2/FiO2 Ratio 3.07 ABG HCO3 26.1 H ABG O2 Saturation 96.1 ABG O2 Content 17.6 ABG Base Excess 2.6 A-a Gradient 58.0 Oxyhemoglobin 94.5 Carboxyhemoglobin 0.6 Methemoglobin 0.1 Reduced Hemoglobin 4.8 Total Hemoglobin 13.2 O2 Delivery Device Ventilator O2 Liters/Min Not Reportable Minute Volume Not Reportable Vent Rate 18 Vent Mode Cmv FiO2 25 Expiratory Pressure Tidal Volume 450 PEEP 5 Inspiratory Pressure Peak Inspir Pressure Not Reportable Pressure Support Not Reportable Sodium 132 L Potassium 4.0 Chloride 101 Carbon Dioxide 28 Anion Gap 3 L BUN 48 H Creatinine 0.92 Estim Creat Clear Calc 65 Estimated GFR > 60 Glucose 170 H POC Capillary Glucose 167 H Calcium 7.8 L Phosphorus 3.3 Magnesium 2.1 Total Bilirubin 0.2 AST 34 ALT 30 Alkaline Phosphatase 50 Total Protein 6.1 L Albumin 3.2 L 07/18/25 06:01 WBC RBC Hgb Hct MCV MCH MCHC RDW Plt Count MPV Puncture Site ABG pH ABG pCO2 ABG pO2 ABG PO2/FiO2 Ratio ABG HCO3 ABG O2 Saturation ABG O2 Content ABG Base Excess A-a Gradient Oxyhemoglobin Carboxyhemoglobin Methemoglobin Reduced Hemoglobin Total Hemoglobin O2 Delivery Device O2 Liters/Min Minute Volume Vent Rate Vent Mode FiO2 Expiratory Pressure Tidal Volume PEEP Inspiratory Pressure Peak Inspir Pressure Pressure Support Sodium Potassium Chloride Carbon Dioxide Anion Gap BUN Creatinine Estim Creat Clear Calc Estimated GFR Glucose POC Capillary Glucose 214 H Calcium Phosphorus Magnesium Total Bilirubin AST ALT Alkaline Phosphatase Total Protein Albumin Quality VTE Prophylaxis VTE prophylaxis: pharmacologic ordered
[2025-07-18] MEDS: PANTOPRAZOLE SODIUM IV 40 MG VIAL IV PUSH (09:24)
[2025-07-18] MEDS: THIAMINE HCL 100 MG TABLET FEED TUBE (09:25)
[2025-07-18] MEDS: FOLIC ACID 1 MG TABLET FEED TUBE (09:25)
[2025-07-18] MEDS: CALCIUM GLUC 2,000 MG/NS 100ML 2,000 MG/100 ML BAG 100 MG IVPB (09:25)
[2025-07-18] MEDS: ENOXAPARIN 80 MG/0.8 ML SYRINGE 65 MG SUB-Q ×2 (09:27→21:27)
[2025-07-18] MEDS: INSULIN GLARGINE (*BKC) 100 UNITS/ML 20 UNITS SUB-Q (09:27)
[2025-07-18] MEDS: MINERAL OIL/WHITE PETROLATUM OINTMENT 1 APPLIC EACH EYE ×2 (09:27→21:27)
[2025-07-18] MEDS: dexmedeTOMIDine 400 MCG/100 ML 400 MCG/100 ML BAG IV CONT (09:41)
--- NOTE | 2025-07-18 11:22 | PCNFU ---
Nutrition Follow-Up Complete: Increased protein energy needs related to mechanical ventilation as evidenced by need for trophic tube feeds Goal:Meet estimated nutrition needs Patient will continue current goal. Pt current nutrition is Vital AF 1.2 at 50 ml/hr. Last recorded weight is 66.3 kg, up from 65.5 kg on admit. Bowel Motility: No BM reported. Labs Reviewed: Glu 170, BUN 48, Na 132, Alb 3.2 Meds Noted: Thiamine, Folic Acid, Propofol 45 umrf=330 kcal, Precedex, Lantus Skin: WNL Additional Notes: Patient remains on mechanical vent. Tube feeding are being tolerated of Vital AF 1.2 at 50 ml/hr. Total Nutrition:1763 kcal/83 gm protein/892 ml water. Flush 30 ml q 4hours. Agree with diet orders at this time. Plans for titration of Propofol and increased in Precedex. Will continue to monitor for further tube feeding rate changes. Monitoring meds, weights, labs, tube feeding tolerance, output, plan of care Follow up Thursday/Thursday, daily rounds
--- NOTE | 2025-07-18 12:06 | PM.PNGS ---
Progress Note: A&P Assessment and Plan (1) Pneumothorax, left: Code(s): J93.9 - Pneumothorax, unspecified Status: Acute Assessment and Plan: Patient remains on the ventilator with FiO2 of 25% and good oxygen saturation. Chest tube remains in good position with no air leak. CXR showed no pneumothorax this morning. Continue to monitor with serial CXR daily, exam and labs. 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 Hernandez, who feels patient is far from trial of weaning. Continue present treatment. (2) Respiratory failure with hypoxia and hypercapnia: Qualifiers: Chronicity: acute Qualified Code(s): J96.01 - Acute respiratory failure with hypoxia; J96.02 - Acute respiratory failure with hypercapnia Code(s): J96.91 - Respiratory failure, unspecified with hypoxia; J96.92 - Respiratory failure, unspecified with hypercapnia Status: Acute (3) COPD (chronic obstructive pulmonary disease): Qualifiers: COPD type: emphysema Emphysema type: unspecified Qualified Code(s): J43.9 - Emphysema, unspecified Code(s): J44.9 - Chronic obstructive pulmonary disease, unspecified Status: Chronic (4) Sepsis: Qualifiers: Sepsis type: sepsis due to unspecified organism Sepsis acute organ dysfunction status: without acute organ dysfunction Qualified Code(s): A41.9 - Sepsis, unspecified organism Code(s): A41.9 - Sepsis, unspecified organism Status: Acute Assessment and Plan: Source unclear. (5) Atrial fibrillation with rapid ventricular response: Code(s): I48.91 - Unspecified atrial fibrillation Status: Acute (6) Polysubstance abuse: Code(s): F19.10 - Other psychoactive substance abuse, uncomplicated Status: Chronic Subjective Subjective Date/Time Seen: 07/18/25 12:06 Interval history: Sedated on ventilator. Review of Systems Review of Systems: ROS unobtainable: Yes unobtainable due to medical condition Exam Chest: Chest palpation & inspection: abnormal inspection of the chest (Left chest tube dressing dry and intact, chest tube in good position,), no crepitus and No rash Resp: Effort & Inspection: abnormal respiratory pattern (On mechanical ventilator) and other (No pleural leak seen) Auscultation: rhonchi (Scattered) Objective Data Vital Signs Vital Signs: Vital Signs - 24 hr 07/17/25 12:35 07/17/25 12:35 07/17/25 13:00 Temperature 37.3 C Pulse Rate 85 85 78 Respiratory Rate 22 H Blood Pressure 122/93 H 122/93 H 117/88 Pulse Oximetry 97 Oxygen Delivery Fraction of Inspired Oxygen 07/17/25 14:00 07/17/25 14:00 07/17/25 14:00 Temperature Pulse Rate 76 79 78 Respiratory Rate 24 H 24 H Blood Pressure 124/92 H Pulse Oximetry Oxygen Delivery Fraction of Inspired Oxygen 07/17/25 14:00 07/17/25 14:00 07/17/25 14:33 Temperature 37.4 C Pulse Rate 77 77 88 Respiratory Rate 24 H Blood Pressure 124/92 H Pulse Oximetry 97 96 Oxygen Delivery Mechanical Ventilation Fraction of Inspired Oxygen 07/17/25 14:41 07/17/25 14:41 07/17/25 15:00 Temperature 37.4 C Pulse Rate 84 84 88 Respiratory Rate 25 H 25 H 24 H Blood Pressure 130/93 H Pulse Oximetry 98 Oxygen Delivery Fraction of Inspired Oxygen 07/17/25 16:00 07/17/25 16:00 07/17/25 16:00 Temperature 37.6 C Pulse Rate 76 Respiratory Rate 26 H Blood Pressure 130/90 Pulse Oximetry 97 97 Oxygen Delivery Mechanical Ventilation Fraction of Inspired Oxygen 07/17/25 16:00 07/17/25 16:00 07/17/25 16:00 Temperature Pulse Rate 81 81 75 Respiratory Rate 25 H 25 H Blood Pressure 130/90 Pulse Oximetry Oxygen Delivery Fraction of Inspired Oxygen 07/17/25 16:00 07/17/25 17:00 07/17/25 17:18 Temperature 37.6 C Pulse Rate 75 83 81 Respiratory Rate 27 H 28 H Blood Pressure 136/86 Pulse Oximetry 96 Oxygen Delivery Fraction of Inspired Oxygen 07/17/25 17:18 07/17/25 17:19 07/17/25 17:19 Temperature Pulse Rate 81 78 78 Respiratory Rate 28 H Blood Pressure 126/86 126/86 Pulse Oximetry Oxygen Delivery Fraction of Inspired Oxygen 07/17/25 17:20 07/17/25 18:00 07/17/25 18:00 Temperature 37.4 C Pulse Rate 88 72 77 Respiratory Rate 26 H Blood Pressure 116/92 H Pulse Oximetry 96 95 Oxygen Delivery Mechanical Ventilation Fraction of Inspired Oxygen 25 07/17/25 18:00 07/17/25 18:00 07/17/25 18:00 Temperature Pulse Rate 77 81 78 Respiratory Rate 26 H 25 H Blood Pressure 116/92 H Pulse Oximetry Oxygen Delivery Fraction of Inspired Oxygen 07/17/25 18:30 07/17/25 19:00 07/17/25 19:41 Temperature 37.4 C Pulse Rate 74 74 74 Respiratory Rate 26 H 26 H 25 H Blood Pressure 132/81 Pulse Oximetry 96 Oxygen Delivery Fraction of Inspired Oxygen 07/17/25 19:45 07/17/25 20:00 07/17/25 20:00 Temperature Pulse Rate 74 80 80 Respiratory Rate 30 H Blood Pressure 130/87 Pulse Oximetry 94 Oxygen Delivery Mechanical Ventilation Fraction of Inspired Oxygen 25 07/17/25 20:00 07/17/25 20:00 07/17/25 20:00 Temperature Pulse Rate 73 Respiratory Rate Blood Pressure Pulse Oximetry 97 Oxygen Delivery Mechanical Ventilation Fraction of Inspired Oxygen 07/17/25 20:00 07/17/25 20:07 07/17/25 21:00 Temperature 37.5 C 37.4 C Pulse Rate 72 80 76 Respiratory Rate 29 H 30 H 25 H Blood Pressure 130/87 113/85 Pulse Oximetry 97 Oxygen Delivery Fraction of Inspired Oxygen 07/17/25 21:29 07/17/25 21:30 07/17/25 22:00 Temperature Pulse Rate 85 81 75 Respiratory Rate 27 H 28 H 23 H Blood Pressure Pulse Oximetry Oxygen Delivery Fraction of Inspired Oxygen 07/17/25 22:00 07/17/25 22:00 07/17/25 22:00 Temperature Pulse Rate 75 75 75 Respiratory Rate 23 H Blood Pressure 111/80 Pulse Oximetry Oxygen Delivery Fraction of Inspired Oxygen 07/17/25 22:00 07/17/25 23:00 07/17/25 23:17 Temperature 37.4 C 37.4 C Pulse Rate 76 76 76 Respiratory Rate 23 H 23 H 21 H Blood Pressure 111/80 121/89 Pulse Oximetry 97 96 Oxygen Delivery Fraction of Inspired Oxygen 07/17/25 23:17 07/17/25 23:20 07/18/25 00:00 Temperature Pulse Rate 72 76 74 Respiratory Rate 21 H Blood Pressure 114/77 Pulse Oximetry 98 Oxygen Delivery Mechanical Ventilation Fraction of Inspired Oxygen 07/18/25 00:00 07/18/25 00:00 07/18/25 00:00 Temperature 37.4 C Pulse Rate 74 71 76 Respiratory Rate 23 H 24 H Blood Pressure 114/77 114/77 Pulse Oximetry 98 Oxygen Delivery Fraction of Inspired Oxygen 07/18/25 00:00 07/18/25 00:00 07/18/25 00:00 Temperature Pulse Rate 77 Respiratory Rate Blood Pressure Pulse Oximetry 98 Oxygen Delivery Mechanical Ventilation Fraction of Inspired Oxygen 07/18/25 00:01 07/18/25 01:00 07/18/25 01:00 Temperature 37.4 C Pulse Rate 79 90 81 Respiratory Rate 23 H 29 H 26 H Blood Pressure 144/84 H Pulse Oximetry 98 Oxygen Delivery Fraction of Inspired Oxygen 07/18/25 02:00 07/18/25 02:00 07/18/25 02:00 Temperature Pulse Rate 73 73 73 Respiratory Rate 21 H 21 H Blood Pressure 121/91 H Pulse Oximetry Oxygen Delivery Fraction of Inspired Oxygen 07/18/25 02:00 07/18/25 02:00 07/18/25 03:00 Temperature 37.3 C 37.2 C Pulse Rate 73 73 68 Respiratory Rate 21 H 20 Blood Pressure 121/91 H 111/75 Pulse Oximetry 98 99 Oxygen Delivery Fraction of Inspired Oxygen 07/18/25 03:12 07/18/25 03:44 07/18/25 03:44 Temperature Pulse Rate 71 82 82 Respiratory Rate 27 H 27 H Blood Pressure Pulse Oximetry 99 Oxygen Delivery Mechanical Ventilation Fraction of Inspired Oxygen 07/18/25 03:53 07/18/25 04:00 07/18/25 04:00 Temperature Pulse Rate 87 70 70 Respiratory Rate 29 H 22 H 22 H Blood Pressure Pulse Oximetry Oxygen Delivery Fraction of Inspired Oxygen 07/18/25 04:00 07/18/25 04:00 07/18/25 04:00 Temperature 37.1 C Pulse Rate 70 70 Respiratory Rate 22 H Blood Pressure 121/73 121/73 Pulse Oximetry 98 Oxygen Delivery Fraction of Inspired Oxygen 07/18/25 04:00 07/18/25 04:00 07/18/25 05:00 Temperature Pulse Rate 70 70 Respiratory Rate 23 H Blood Pressure 124/72 Pulse Oximetry 98 98 Oxygen Delivery Mechanical Ventilation Fraction of Inspired Oxygen 07/18/25 05:10 07/18/25 06:00 07/18/25 06:00 Temperature Pulse Rate 72 68 68 Respiratory Rate Blood Pressure 112/77 Pulse Oximetry 98 Oxygen Delivery Mechanical Ventilation Fraction of Inspired Oxygen 07/18/25 06:00 07/18/25 06:08 07/18/25 06:08 Temperature 36.6 C Pulse Rate 80 75 76 Respiratory Rate 25 H 27 H 27 H Blood Pressure 112/77 Pulse Oximetry 98 Oxygen Delivery Fraction of Inspired Oxygen 07/18/25 06:39 07/18/25 06:39 07/18/25 06:41 Temperature Pulse Rate 77 62 67 Respiratory Rate 21 H 24 H Blood Pressure 104/71 Pulse Oximetry Oxygen Delivery Fraction of Inspired Oxygen 07/18/25 06:42 07/18/25 06:52 07/18/25 06:53 Temperature Pulse Rate 67 67 67 Respiratory Rate 21 H 21 H Blood Pressure 104/71 Pulse Oximetry Oxygen Delivery Fraction of Inspired Oxygen 07/18/25 07:00 07/18/25 07:00 07/18/25 07:01 Temperature Pulse Rate 62 76 81 Respiratory Rate 20 25 H 26 H Blood Pressure 122/76 122/76 Pulse Oximetry 98 98 98 Oxygen Delivery Fraction of Inspired Oxygen 07/18/25 07:03 07/18/25 07:30 07/18/25 07:31 Temperature Pulse Rate 71 66 73 Respiratory Rate 27 H 20 20 Blood Pressure 110/70 Pulse Oximetry 98 98 Oxygen Delivery Fraction of Inspired Oxygen 07/18/25 07:39 07/18/25 07:40 07/18/25 08:00 Temperature Pulse Rate 73 86 Respiratory Rate 24 H 25 H Blood Pressure Pulse Oximetry Oxygen Delivery Fraction of Inspired Oxygen 07/18/25 08:00 07/18/25 08:00 07/18/25 08:00 Temperature Pulse Rate 89 82 Respiratory Rate 29 H Blood Pressure Pulse Oximetry 98 100 Oxygen Delivery Mechanical Ventilation Fraction of Inspired Oxygen 07/18/25 08:00 07/18/25 08:02 07/18/25 08:03 Temperature 36.8 C Pulse Rate 78 83 89 Respiratory Rate 25 H 28 H Blood Pressure 139/70 137/90 Pulse Oximetry 99 99 Oxygen Delivery Fraction of Inspired Oxygen 07/18/25 08:24 07/18/25 08:30 07/18/25 08:42 Temperature Pulse Rate 98 80 79 Respiratory Rate 31 H 30 H Blood Pressure Pulse Oximetry 91 100 Oxygen Delivery Mechanical Ventilation Fraction of Inspired Oxygen 07/18/25 08:42 07/18/25 08:45 07/18/25 08:45 Temperature Pulse Rate 87 78 78 Respiratory Rate 27 H 30 H 30 H Blood Pressure 134/110 H Pulse Oximetry 99 Oxygen Delivery Fraction of Inspired Oxygen 07/18/25 09:00 07/18/25 09:01 07/18/25 09:41 Temperature Pulse Rate 69 73 64 Respiratory Rate 23 H 23 H 26 H Blood Pressure 113/80 Pulse Oximetry 99 98 Oxygen Delivery Fraction of Inspired Oxygen 07/18/25 09:55 07/18/25 09:55 07/18/25 10:00 Temperature Pulse Rate 78 78 67 Respiratory Rate 26 H 26 H Blood Pressure 114/75 Pulse Oximetry Oxygen Delivery Fraction of Inspired Oxygen 07/18/25 10:00 07/18/25 10:14 07/18/25 10:14 Temperature Pulse Rate 63 68 78 Respiratory Rate 25 H 24 H Blood Pressure Pulse Oximetry Oxygen Delivery Fraction of Inspired Oxygen 07/18/25 10:31 07/18/25 10:32 07/18/25 11:09 Temperature Pulse Rate 68 65 57 L Respiratory Rate 20 Blood Pressure 105/73 Pulse Oximetry 98 Oxygen Delivery Mechanical Ventilation Fraction of Inspired Oxygen 25 Intake/Output Intake/Output: Intake & Output 07/15/25 07/16/25 07/17/25 07/18/25 23:59 22:59 23:59 23:59 Intake Total 1000 2685.3 2791.0 1211.0 Output Total 932 810 845 Balance 1000 1753.3 1981.0 366.0 Meds/Results Medications: Active Medications Generic Name Dose Route Start Last Admin Trade Name Freq PRN Reason Stop Dose Admin Albuterol/Ipratropium 3 ml 07/16/25 08:21 07/17/25 19:36 Ipratropium 0.5 Mg/Albuterol Sulfate 2.5 Mg (Base) Ampul.Neb 3 Ml INHALATION 3 ml Q6HRT PRN Administration Wheezing Buprenorphine HCl 0.3 mg 07/15/25 21:37 07/15/25 21:58 Buprenorphine Hcl (*Crx) 0.3 Mg/Ml Vial IV PUSH 0.3 mg On Hold: 07/16/25 08:20 Q6H PRN Administration Withdrawal Dextrose 12.5 gm 07/16/25 08:21 Dextrose 50% 25 Gm/50 Ml Syringe IV PUSH PRN PRN Hypoglycemia Protocol Enoxaparin Sodium 65 mg 07/16/25 09:00 07/18/25 09:27 Enoxaparin 80 Mg/0.8 Ml Syringe SUB-Q 65 mg Q12HR MIGUEL A Administration Folic Acid 1 mg 07/16/25 09:00 07/18/25 09:25 Folic Acid 1 Mg Tablet FEED TUBE 1 mg DAILY MIGUEL A Administration Glucagon 1 mg 07/16/25 08:21 Glucagon For Inj 1 Mg Vial IM PRN PRN Hypoglycemia Protocol Glucose 15 gm 07/16/25 08:21 Glucose Oral Gel 15 Gm Of Glucse In 37.5 Gm Tube PO PRN PRN Hypoglycemia Protocol Fentanyl Citrate 2,500 mcg in 250 mls @ 10 mls/hr 07/16/25 00:30 07/18/25 10:14 Fentanyl 2,500 Mcg/Ns 250 Ml IV CONT 100 mcg/hr .Q25H MIGUEL A 10 mls/hr Protocol Titration 100 MCG/HR Propofol 100 mls @ 16.794 mls/hr 07/16/25 05:25 07/18/25 10:32 Diprivan IV CONT 45 mcg/kg/min .Q5H58M MIGUEL A 16.79 mls/hr Protocol Titration 45 MCG/KG/MIN Dextrose 1,000 mls @ 100 mls/hr 07/16/25 08:21 Dextrose 5% 1,000 Ml IVPB PRN PRN Hypoglycemia Protocol Diltiazem HCl 100 mg in 100 mls @ 10 mls/hr 07/16/25 07:30 07/18/25 10:31 Cardizem 100 Mg/100 Ml IV CONT 10 mg/hr .Q10H MIGUEL A 10 mls/hr 10 MG/HR Infusion Ceftriaxone Sodium 2 gm/ 100 mls @ 200 mls/hr 07/16/25 11:00 07/17/25 12:04 Sodium Chloride IVPB 07/22/25 11:29 Infused Q24H MIGUEL A Infusion Dexmedetomidine HCl 400 mcg in 100 mls @ 6.63 mls/hr 07/18/25 09:20 07/18/25 10:14 Precedex 400 Mcg/100 Ml IV CONT 0.4 mcg/kg/hr .Q15H5M MIGUEL A 6.63 mls/hr Protocol Titration 0.4 MCG/KG/HR Insulin Aspart 3 - 6 units 07/16/25 12:00 07/18/25 06:20 Insulin Aspart (*Bkc) 100 Units/Ml SUB-Q 3 units Q6HR MIGUEL A Administration Protocol Insulin Glargine 20 units 07/17/25 09:00 07/18/25 09:27 Insulin Glargine (*Bkc) 100 Units/Ml SUB-Q 20 units QAM MIGUEL A Administration Methylprednisolone Sodium Succinate 80 mg 07/18/25 09:00 07/18/25 09:25 Methylprednisolone Sod Succ 125 Mg Vial IV PUSH 80 mg QAM MIGUEL A Administration Multi-Ingred Cream/Lotion/Oil/Oint 1 applic 07/16/25 21:00 07/18/25 09:27 Mineral Oil/White Petrolatum Ointment EACH EYE 1 applic Q12HR MIGUEL A Administration Pantoprazole Sodium 40 mg 07/16/25 09:00 07/18/25 09:24 Pantoprazole Sodium Iv 40 Mg Vial IV PUSH 40 mg QAM MIGUEL A Administration Perflutren Lipid Microsphere 0 ml 07/16/25 08:17 Perflutren Lipid Microspheres 1.5 Ml Vial Diluted To 10 Ml Total Volume IV PUSH 07/19/25 08:18 ONCE PRN adequate visualization Protocol Sodium Chloride 10 ml 07/17/25 14:00 07/18/25 06:21 Central Line Flush IV PUSH 10 ml Q8HR MIGUEL A Administration Sodium Chloride 20 ml 07/17/25 06:35 Central Line Flush IV PUSH PRN PRN after blood draws Thiamine HCl 100 mg 07/16/25 09:00 07/18/25 09:25 Thiamine Hcl 100 Mg Tablet FEED TUBE 100 mg QAM MIGUEL A Administration Radiology Results: ITS Impressions Chest CTA 07/16/25 08:43 IMPRESSION: 1. No pulmonary embolus. 2. Moderate-sized left pneumothorax. 3. Mild pulmonary edema. 4. Left lung upper lobe nodules, which may be infection or less likely metastatic disease. 5. Moderate emphysema. Chest X-Ray 07/18/25 08:30 Impression: Mild CHF Labs Labs: Laboratory Results - last 24 hr 07/17/25 07/17/25 07/17/25 11:49 17:21 23:41 WBC RBC Hgb Hct MCV MCH MCHC RDW Plt Count MPV Puncture Site ABG pH ABG pCO2 ABG pO2 ABG PO2/FiO2 Ratio ABG HCO3 ABG O2 Saturation ABG O2 Content ABG Base Excess A-a Gradient Oxyhemoglobin Carboxyhemoglobin Methemoglobin Reduced Hemoglobin Total Hemoglobin O2 Delivery Device O2 Liters/Min Minute Volume Vent Rate Vent Mode FiO2 Tidal Volume PEEP Peak Inspir Pressure Pressure Support Sodium Potassium Chloride Carbon Dioxide Anion Gap BUN Creatinine Estim Creat Clear Calc Estimated GFR Glucose POC Capillary Glucose 189 H 212 H 167 H Calcium Phosphorus Magnesium Total Bilirubin AST ALT Alkaline Phosphatase Total Protein Albumin 07/18/25 07/18/25 07/18/25 04:17 04:37 06:01 WBC 18.4 H RBC 3.92 L Hgb 11.6 L Hct 35.3 L MCV 90.1 MCH 29.6 MCHC 32.9 RDW 17.1 H Plt Count 149 L MPV 9.5 Puncture Site Left radial ABG pH 7.471 H ABG pCO2 36.6 ABG pO2 76.8 L ABG PO2/FiO2 Ratio 3.07 ABG HCO3 26.1 H ABG O2 Saturation 96.1 ABG O2 Content 17.6 ABG Base Excess 2.6 A-a Gradient 58.0 Oxyhemoglobin 94.5 Carboxyhemoglobin 0.6 Methemoglobin 0.1 Reduced Hemoglobin 4.8 Total Hemoglobin 13.2 O2 Delivery Device Ventilator O2 Liters/Min Not Reportable Minute Volume Not Reportable Vent Rate 18 Vent Mode Cmv FiO2 25 Tidal Volume 450 PEEP 5 Peak Inspir Pressure Not Reportable Pressure Support Not Reportable Sodium 132 L Potassium 4.0 Chloride 101 Carbon Dioxide 28 Anion Gap 3 L BUN 48 H Creatinine 0.92 Estim Creat Clear Calc 65 Estimated GFR > 60 Glucose 170 H POC Capillary Glucose 214 H Calcium 7.8 L Phosphorus 3.3 Magnesium 2.1 Total Bilirubin 0.2 AST 34 ALT 30 Alkaline Phosphatase 50 Total Protein 6.1 L Albumin 3.2 L Imaging Attestation: I personally reviewed and interpreted this imaging study as follows: (Portable chest x-ray from today) My impression: Chest tube in good position, no pneumothorax Radiologist's impression: Same
[2025-07-18] MEDS: cefTRIAXone 2 GM in SODIUM CHLORIDE 0.9% IV 100 ML 200 ML IVPB (12:11)
[2025-07-18] MEDS: PROPOFOL IV EMULSION 100 ML 11.2 MG IV CONT (16:03)
[2025-07-18] MEDS: dexmedeTOMIDine 400 MCG/100 ML 400 MCG/100 ML BAG 8.29 MCG IV CONT (22:42)
[2025-07-19] VITALS (43 sets, daily range): BP systolic 96–153; BP diastolic 60–120; PULSE 64–111; RESP 14–25; TEMP 35.8–37; O2SAT 91–100
[2025-07-19] MEDS: PROPOFOL IV EMULSION 100 ML 11.2 MG IV CONT ×2 (00:09→06:00)
--- NOTE | 2025-07-19 00:45 | PC.NURSE ---
Bedside Shift report given to Deo Eaton RN.
[2025-07-19 04:53] LABS: Alveolar/Arterial O2 Gradient 52.1 mmHg; Carboxyhemoglobin 0.6 % THb (0-2.0); Fractional Inspired Oxygen 25 %; HCO3 ABG 25.8 mEq/l (22.0-26.0); Methemoglobin ABG 0.0 %THb (0-1.5); Oxygen Content ABG 18.0 %vol (16.0-22.0); Oxygen Saturation ABG 97.0 % (95.0-100.0); PCO2 ABG 35.1 mmHg (35.0-45.0); PO2 ABG 84.5 mmHg (80.0-100.0); PO2 FiO2 Ratio Arterial Blood 3.38 %; Reduced Hemoglobin 3.6 %THb (0-5.0)
[2025-07-19 04:55] LABS: Arterial Blood Gas Ventilator rate 18 /MIN; Modified Allen's Test Pass; Site Drawn LEFT RADIAL
[2025-07-19 04:56] LABS: Arterial Blood Gas Tidal Volume 420 ml
[2025-07-19] MEDS: dexmedeTOMIDine 400 MCG/100 ML 400 MCG/100 ML BAG 19.89 MCG IV CONT ×3 (06:00→23:33)
[2025-07-19 06:55] LABS: Hematocrit 37.3 % (42.0-52.0); Hemoglobin 12.1 g/dL (14.0-18.0); Immature Platelet Fraction Pct 4.0 % (0.9-11.2); Mean Corpuscular HGB Conc 32.4 g/dl (32-36); Mean Corpuscular Hemoglobin 29.5 pg (26-34); Mean Corpuscular Volume 91.0 fl (80-100); Platelet Count Result 121 k/mm3 (150-375); Red Blood Count 4.10 M/mm3 (4.6-6.20); White Blood Count 10.5 K/mm3 (4.5-10.0)
[2025-07-19 07:06] LABS: Alanine Aminotransferase 25 U/L (6-50); Albumin Level 3.0 g/dL (3.5-5.1); Alkaline Phosphatase 49 U/L (38-126); Anion Gap 0 mmol/L (4-12); Aspartate Amino Transferase 32 U/L (17-59); Bilirubin,Total 0.4 mg/dL (0.2-1.3); Blood Urea Nitrogen 44 mg/dL (9-20); Calcium 7.7 mg/dL (8.4-10.2); Carbon Dioxide 30 mmol/L (22-30); Chloride 102 mmol/L (98-107); Estimated CRCL calculation 88 ml/min; Estimated Glomerular Filt Rate > 60; Glucose 127 mg/dL (65-110); Magnesium 2.1 mg/dL (1.6-2.3); Potassium 4.4 mmol/L (3.4-5.0); Sodium 132 mmol/L (137-145); Total Protein 5.8 g/dL (6.3-8.2)
[2025-07-19] MEDS: CALCIUM GLUC 2,000 MG/NS 100ML 2,000 MG/100 ML BAG 100 MG IVPB (08:00)
[2025-07-19] MEDS: CENTRAL LINE FLUSH 10 ML IV PUSH ×3 (08:00→20:51)
[2025-07-19] MEDS: PANTOPRAZOLE SODIUM IV 40 MG VIAL IV PUSH (08:01)
[2025-07-19] MEDS: ENOXAPARIN 80 MG/0.8 ML SYRINGE 65 MG SUB-Q (08:01)
[2025-07-19] MEDS: INSULIN GLARGINE (*BKC) 100 UNITS/ML 20 UNITS SUB-Q (08:11)
[2025-07-19] MEDS: THIAMINE HCL 100 MG TABLET FEED TUBE (08:13)
[2025-07-19] MEDS: MINERAL OIL/WHITE PETROLATUM OINTMENT 1 APPLIC EACH EYE (08:13)
[2025-07-19] MEDS: FOLIC ACID 1 MG TABLET FEED TUBE (08:13)
--- NOTE | 2025-07-19 08:18 | P.PNINT_ITS ---
Progress Note: A&P Assessment and Plan (1) Respiratory failure with hypoxia and hypercapnia: Qualifiers: Chronicity: acute Qualified Code(s): J96.01 - Acute respiratory failure with hypoxia; J96.02 - Acute respiratory failure with hypercapnia Code(s): J96.91 - Respiratory failure, unspecified with hypoxia; J96.92 - Respiratory failure, unspecified with hypercapnia Status: Acute Assessment and Plan: Multifactorial acute on chronic respiratory failure secondary to acute exacerbation of COPD, left pneumothorax and AFib with RVR Patient now intubated and sedated Vent settings reviewed and I have decreased the tidal volume to 420 and rate to 18 Left pneumothorax Status post chest tube placement which is to suction and there is no air leak at this time Empiric Rocephin for COPD exacerbation. No significant consolidation on infiltrates on the CT scan to suggest pneumonia. Negative blood cultures till now Viral panel was negative Continue steroids and bronchodilators CT scan and chest x-ray reviewed Sedated with fentanyl and propofol at this time. At [facility] 07/18 sedation holiday was performed to evaluate patient for weaning trial. Patient became tachypneic with respiratory rate in high 30s with increased respiratory distress and work of breathing. Patient was diaphoretic. Sedation holiday was aborted and patient was placed back on sedation. Patient never went on PSV 07/19 sedation location and evaluate for weaning trial again today. Decrease steroid dose. Change tidal volume to 380 and rate to 16 (2) Acute exacerbation of chronic obstructive pulmonary disease: Code(s): J44.1 - Chronic obstructive pulmonary disease with (acute) exacerbation Status: Acute Assessment and Plan: See above (3) Pneumothorax, left: Code(s): J93.9 - Pneumothorax, unspecified Status: Acute Assessment and Plan: See above (4) Alcohol abuse: Code(s): F10.10 - Alcohol abuse, uncomplicated Status: Acute Assessment and Plan: Currently sedated with propofol and fentanyl Continue thiamine and folic acid (5) Hypertension: Code(s): I10 - Essential (primary) hypertension Status: Acute Assessment and Plan: Monitor at this time. Patient is sedated and on Cardizem infusion. Hold other antihypertensives (6) Atrial fibrillation with rapid ventricular response: Code(s): I48.91 - Unspecified atrial fibrillation Status: Acute Assessment and Plan: AFib with RVR. Improved with Cardizem infusion. Continue at this time as long as blood pressure tolerates. Continue Lovenox. EchoSummary 1. Left ventricular chamber dimension is normal. 2. Left ventricular systolic function is normal, estimated at 50-55%. 3. There is moderately increased left ventricular wall thickness. 4. Right ventricular systolic function is normal. 5. Left atrial chamber dimension is severely enlarged. 6. Right atrial chamber dimension is moderately enlarged. 7. There is moderate to severe mitral valve regurgitation. 8. There is mild tricuspid valve regurgitation. 9. Pulmonary hypertension, estimated pulmonary arterial systolic pressure is 45 mmHg. (7) Cardiomyopathy: Qualifiers: Cardiomyopathy type: unspecified Qualified Code(s): I42.9 - Cardiomyopathy, unspecified Code(s): I42.9 - Cardiomyopathy, unspecified Status: Acute Assessment and Plan: Echocardiogram as below (8) Electrolyte abnormality: Code(s): E87.8 - Other disorders of electrolyte and fluid balance, not elsewhere classified Status: Acute Assessment and Plan: Calcium replacement ordered (9) Hyperglycemia: Code(s): R73.9 - Hyperglycemia, unspecified Status: Acute Assessment and Plan: Continue sliding scale insulin. Continue Lantus. (10) Sepsis: Qualifiers: Sepsis type: sepsis due to unspecified organism Sepsis acute organ dysfunction status: without acute organ dysfunction Qualified Code(s): A41.9 - Sepsis, unspecified organism Code(s): A41.9 - Sepsis, unspecified organism Status: Acute Assessment and Plan: Secondary to UTI Urine culture ordered and pending continue Rocephin History of Proteus UTI which was sensitive to Rocephin (11) UTI (urinary tract infection): Code(s): N39.0 - Urinary tract infection, site not specified Status: Acute Assessment and Plan: See above Plan DVT prophylaxis -continue Lovenox therapeutic dose Stress ulcer prophylaxis -PPI Nutrition -continue Tube Feeds Code Status - Full Code Total Critical Care Time - 30 minutes Due to a high probability of clinically significant, life threatening deterioration, the patient required my highest level of preparedness to intervene emergently and I personally spent this critical care time directly and personally managing the patient. This critical care time included obtaining a history; examining the patient; pulse oximetry; ordering and review of studies; arranging urgent treatment with development of a management plan; evaluation of patient's response to treatment; frequent reassessment; and discussions with other providers. It was exclusive of separately billable procedures and treating other patients and teaching time. Please see Assessment and Plan section and the rest of the note for further information on patient assessment and treatment Subjective Date/time seen: 07/19/25 Overnight events reviewed. Afebrile Continues to be on mechanical ventilation 25% FiO2 Tolerating tube feed Continues to be sedated with propofol fentanyl and pressor Other Vitals acceptable Review of Systems Review of Systems: ROS unobtainable: Yes unobtainable due to endotracheal tube, unobtainable due to medical condition and unobtainable due to mental status Exam Narrative: General: Pt is sedated, intubated and on mechanical ventilation Lungs/Chest: Trachea central, overall significantly decreased breath sounds bilaterally. No wheezing or crackles heard, chest tube on the left with no air leak Cardiac: Irregularly irregular tachycardic. Normal S1 S2. No murmurs Circulation: Pedal pulses are intact and symmetrical. Abdomen: Decreased bowel sounds. Soft. NT. ND. Extremities: No clubbing, cyanosis or edema. Warm : Lau in place Neurologic: Despite low sedation patient follows commands intermittently but moves all 4 extremities spontaneously. Nodes is head on calling his name. Pupil slightly unequal with left slightly bigger than right of both are reactive to light Objective Data Vital Signs Vital Signs: Vital Signs - 24 hr 07/18/25 08:24 07/18/25 08:30 07/18/25 08:42 Temperature Pulse Rate 98 80 79 Respiratory Rate 31 H 30 H Blood Pressure Pulse Oximetry 91 100 Oxygen Delivery Mechanical Ventilation Fraction of Inspired Oxygen 07/18/25 08:42 07/18/25 08:45 07/18/25 08:45 Temperature Pulse Rate 87 78 78 Respiratory Rate 27 H 30 H 30 H Blood Pressure 134/110 H Pulse Oximetry 99 Oxygen Delivery Fraction of Inspired Oxygen 07/18/25 09:00 07/18/25 09:01 07/18/25 09:02 Temperature Pulse Rate 69 73 68 Respiratory Rate 23 H 23 H 22 H Blood Pressure 113/80 Pulse Oximetry 99 98 98 Oxygen Delivery Fraction of Inspired Oxygen 07/18/25 09:30 07/18/25 09:31 07/18/25 09:41 Temperature Pulse Rate 65 66 64 Respiratory Rate 26 H 23 H 26 H Blood Pressure 111/73 Pulse Oximetry 98 98 Oxygen Delivery Fraction of Inspired Oxygen 07/18/25 09:55 07/18/25 09:55 07/18/25 10:00 Temperature Pulse Rate 78 78 67 Respiratory Rate 26 H 26 H Blood Pressure 114/75 Pulse Oximetry Oxygen Delivery Fraction of Inspired Oxygen 07/18/25 10:00 07/18/25 10:00 07/18/25 10:09 Temperature 37.1 C Pulse Rate 63 74 69 Respiratory Rate 28 H 29 H Blood Pressure 114/75 Pulse Oximetry 100 99 Oxygen Delivery Fraction of Inspired Oxygen 07/18/25 10:14 07/18/25 10:14 07/18/25 10:30 Temperature Pulse Rate 68 78 61 Respiratory Rate 25 H 24 H 18 Blood Pressure Pulse Oximetry 98 Oxygen Delivery Fraction of Inspired Oxygen 07/18/25 10:31 07/18/25 10:31 07/18/25 10:32 Temperature Pulse Rate 68 64 65 Respiratory Rate 22 H 20 Blood Pressure 105/73 105/73 Pulse Oximetry 98 Oxygen Delivery Fraction of Inspired Oxygen 07/18/25 11:00 07/18/25 11:00 07/18/25 11:01 Temperature Pulse Rate 59 L 59 L 67 Respiratory Rate 20 18 Blood Pressure 94/69 L Pulse Oximetry 98 99 Oxygen Delivery Fraction of Inspired Oxygen 07/18/25 11:09 07/18/25 11:12 07/18/25 11:30 Temperature Pulse Rate 57 L 68 63 Respiratory Rate 21 H 21 H Blood Pressure Pulse Oximetry 98 99 Oxygen Delivery Mechanical Ventilation Fraction of Inspired Oxygen 07/18/25 11:31 07/18/25 11:35 07/18/25 12:00 Temperature Pulse Rate 63 57 L 55 L Respiratory Rate 20 20 Blood Pressure 96/70 L 96/70 L Pulse Oximetry 99 100 Oxygen Delivery Fraction of Inspired Oxygen 07/18/25 12:00 07/18/25 12:00 07/18/25 12:00 Temperature Pulse Rate 54 L Respiratory Rate 19 Blood Pressure Pulse Oximetry 98 Oxygen Delivery Mechanical Ventilation Fraction of Inspired Oxygen 07/18/25 12:00 07/18/25 12:00 07/18/25 12:01 Temperature Pulse Rate 69 69 52 L Respiratory Rate 19 19 Blood Pressure 83/57 L Pulse Oximetry 100 Oxygen Delivery Fraction of Inspired Oxygen 07/18/25 12:03 07/18/25 12:04 07/18/25 12:05 Temperature 36.9 C Pulse Rate 73 65 Respiratory Rate 16 23 H Blood Pressure 83/60 L 92/63 L Pulse Oximetry 100 100 100 Oxygen Delivery Fraction of Inspired Oxygen 07/18/25 12:19 07/18/25 12:30 07/18/25 12:31 Temperature Pulse Rate 51 L 51 L 53 L Respiratory Rate 19 19 18 Blood Pressure 89/56 L Pulse Oximetry 100 100 Oxygen Delivery Fraction of Inspired Oxygen 07/18/25 13:00 07/18/25 13:01 07/18/25 13:30 Temperature Pulse Rate 42 L 57 L 56 L Respiratory Rate 20 18 17 Blood Pressure 85/60 L Pulse Oximetry 100 100 100 Oxygen Delivery Fraction of Inspired Oxygen 07/18/25 13:31 07/18/25 14:00 07/18/25 14:00 Temperature Pulse Rate 49 L 62 57 L Respiratory Rate 16 16 16 Blood Pressure 89/63 L 89/62 L Pulse Oximetry 100 100 Oxygen Delivery Fraction of Inspired Oxygen 07/18/25 14:00 07/18/25 14:00 07/18/25 14:00 Temperature Pulse Rate 61 68 57 L Respiratory Rate 19 Blood Pressure 89/62 L Pulse Oximetry Oxygen Delivery Fraction of Inspired Oxygen 07/18/25 14:04 07/18/25 14:17 07/18/25 14:28 Temperature Pulse Rate 59 L 63 68 Respiratory Rate 17 23 H Blood Pressure 90/70 L Pulse Oximetry 100 100 Oxygen Delivery Mechanical Ventilation Fraction of Inspired Oxygen 07/18/25 14:30 07/18/25 14:31 07/18/25 14:41 Temperature Pulse Rate 56 L 50 L 78 Respiratory Rate 15 17 24 H Blood Pressure 86/60 L 93/78 L Pulse Oximetry 100 100 100 Oxygen Delivery Fraction of Inspired Oxygen 07/18/25 15:00 07/18/25 15:01 07/18/25 15:30 Temperature Pulse Rate 64 59 L 60 Respiratory Rate 17 18 17 Blood Pressure 85/61 L 89/59 L Pulse Oximetry 100 100 100 Oxygen Delivery Fraction of Inspired Oxygen 07/18/25 15:31 07/18/25 16:00 07/18/25 16:00 Temperature Pulse Rate 63 Respiratory Rate 17 Blood Pressure Pulse Oximetry 100 98 Oxygen Delivery Mechanical Ventilation Fraction of Inspired Oxygen 25 25 07/18/25 16:00 07/18/25 16:00 07/18/25 16:01 Temperature 36.8 C Pulse Rate 75 75 66 Respiratory Rate 21 H 22 H Blood Pressure 114/71 Pulse Oximetry 99 99 Oxygen Delivery Fraction of Inspired Oxygen 07/18/25 16:02 07/18/25 16:03 07/18/25 16:03 Temperature 36.8 C Pulse Rate 78 77 77 Respiratory Rate 19 20 20 Blood Pressure Pulse Oximetry 99 Oxygen Delivery Fraction of Inspired Oxygen 07/18/25 16:04 07/18/25 16:04 07/18/25 16:04 Temperature Pulse Rate 77 77 77 Respiratory Rate 21 H 20 Blood Pressure 114/71 Pulse Oximetry Oxygen Delivery Fraction of Inspired Oxygen 07/18/25 16:30 07/18/25 16:33 07/18/25 17:00 Temperature Pulse Rate 65 68 66 Respiratory Rate 16 16 16 Blood Pressure 99/73 L 102/66 Pulse Oximetry 99 100 100 Oxygen Delivery Fraction of Inspired Oxygen 07/18/25 17:01 07/18/25 17:30 07/18/25 17:31 Temperature Pulse Rate 67 67 59 L Respiratory Rate 15 16 15 Blood Pressure 102/76 Pulse Oximetry 100 100 100 Oxygen Delivery Fraction of Inspired Oxygen 07/18/25 17:58 07/18/25 18:00 07/18/25 18:00 Temperature Pulse Rate 62 71 62 Respiratory Rate 18 Blood Pressure Pulse Oximetry 98 Oxygen Delivery Mechanical Ventilation Fraction of Inspired Oxygen 07/18/25 18:00 07/18/25 18:00 07/18/25 18:00 Temperature Pulse Rate 62 62 62 Respiratory Rate 18 18 Blood Pressure 102/72 Pulse Oximetry Oxygen Delivery Fraction of Inspired Oxygen 07/18/25 18:00 07/18/25 18:01 07/18/25 18:30 Temperature Pulse Rate 62 61 62 Respiratory Rate 18 15 17 Blood Pressure 105/75 106/73 Pulse Oximetry 100 100 100 Oxygen Delivery Fraction of Inspired Oxygen 07/18/25 18:31 07/18/25 19:00 07/18/25 19:01 Temperature Pulse Rate 60 72 88 Respiratory Rate 18 16 16 Blood Pressure 104/74 Pulse Oximetry 100 100 100 Oxygen Delivery Fraction of Inspired Oxygen 07/18/25 19:05 07/18/25 20:00 07/18/25 20:00 Temperature Pulse Rate 86 68 62 Respiratory Rate 25 H 18 Blood Pressure 106/73 Pulse Oximetry Oxygen Delivery Fraction of Inspired Oxygen 07/18/25 20:00 07/18/25 20:00 07/18/25 20:00 Temperature Pulse Rate 66 65 Respiratory Rate 18 18 Blood Pressure Pulse Oximetry Oxygen Delivery Fraction of Inspired Oxygen 25 07/18/25 20:00 07/18/25 20:00 07/18/25 20:00 Temperature 36.6 C Pulse Rate 66 66 66 Respiratory Rate 18 18 Blood Pressure 106/73 Pulse Oximetry 99 99 Oxygen Delivery Mechanical Ventilation Fraction of Inspired Oxygen 25 07/18/25 20:06 07/18/25 20:30 07/18/25 21:00 Temperature Pulse Rate 76 88 60 Respiratory Rate 26 H 18 Blood Pressure 100/65 Pulse Oximetry 99 99 Oxygen Delivery Mechanical Ventilation Fraction of Inspired Oxygen 25 07/18/25 21:30 07/18/25 22:00 07/18/25 22:00 Temperature Pulse Rate 56 L 54 L 54 L Respiratory Rate 18 18 18 Blood Pressure Pulse Oximetry Oxygen Delivery Fraction of Inspired Oxygen 07/18/25 22:00 07/18/25 22:00 07/18/25 22:00 Temperature 36.6 C Pulse Rate 54 L 54 L 54 L Respiratory Rate 18 18 Blood Pressure 110/71 Pulse Oximetry 99 Oxygen Delivery Fraction of Inspired Oxygen 07/18/25 22:42 07/18/25 22:42 07/18/25 22:58 Temperature Pulse Rate 64 64 57 L Respiratory Rate 18 18 Blood Pressure Pulse Oximetry 100 Oxygen Delivery Mechanical Ventilation Fraction of Inspired Oxygen 25 07/19/25 00:00 07/19/25 00:00 07/19/25 00:00 Temperature 36.8 C Pulse Rate 71 71 Respiratory Rate 18 Blood Pressure 96/69 L Pulse Oximetry 100 Oxygen Delivery Fraction of Inspired Oxygen 25 07/19/25 00:00 07/19/25 00:01 07/19/25 00:01 Temperature Pulse Rate 71 71 71 Respiratory Rate 20 20 20 Blood Pressure Pulse Oximetry 100 Oxygen Delivery Mechanical Ventilation Fraction of Inspired Oxygen 25 07/19/25 00:01 07/19/25 00:09 07/19/25 00:30 Temperature Pulse Rate 71 71 88 Respiratory Rate 20 20 24 H Blood Pressure Pulse Oximetry Oxygen Delivery Fraction of Inspired Oxygen 07/19/25 00:35 07/19/25 01:00 07/19/25 01:48 Temperature 35.8 C L Pulse Rate 88 65 71 Respiratory Rate 24 H 16 Blood Pressure 110/60 Pulse Oximetry 100 100 Oxygen Delivery Mechanical Ventilation Fraction of Inspired Oxygen 25 07/19/25 02:00 07/19/25 02:00 07/19/25 02:00 Temperature Pulse Rate 64 64 64 Respiratory Rate 15 16 Blood Pressure Pulse Oximetry Oxygen Delivery Fraction of Inspired Oxygen 07/19/25 02:00 07/19/25 03:00 07/19/25 04:00 Temperature Pulse Rate 68 73 66 Respiratory Rate 16 16 16 Blood Pressure 118/88 121/85 Pulse Oximetry 100 100 Oxygen Delivery Fraction of Inspired Oxygen 07/19/25 04:00 07/19/25 04:00 07/19/25 04:00 Temperature Pulse Rate 73 73 73 Respiratory Rate 16 16 16 Blood Pressure Pulse Oximetry 100 Oxygen Delivery Mechanical Ventilation Fraction of Inspired Oxygen 07/19/25 04:00 07/19/25 04:00 07/19/25 04:00 Temperature 36.5 C Pulse Rate 71 79 Respiratory Rate 20 Blood Pressure 128/85 Pulse Oximetry 99 Oxygen Delivery Fraction of Inspired Oxygen 07/19/25 04:57 07/19/25 05:00 07/19/25 06:00 Temperature Pulse Rate 71 75 77 Respiratory Rate 16 16 Blood Pressure 117/82 Pulse Oximetry 100 99 Oxygen Delivery Mechanical Ventilation Fraction of Inspired Oxygen 07/19/25 06:00 07/19/25 06:00 07/19/25 06:00 Temperature Pulse Rate 77 77 72 Respiratory Rate 16 19 18 Blood Pressure Pulse Oximetry Oxygen Delivery Fraction of Inspired Oxygen 07/19/25 06:00 07/19/25 06:00 07/19/25 06:00 Temperature Pulse Rate 72 74 76 Respiratory Rate 18 17 Blood Pressure 123/92 H Pulse Oximetry 98 Oxygen Delivery Fraction of Inspired Oxygen 07/19/25 07:00 Temperature Pulse Rate 84 Respiratory Rate 18 Blood Pressure 132/84 Pulse Oximetry 97 Oxygen Delivery Fraction of Inspired Oxygen Intake/Output Intake/Output: Intake & Output 07/16/25 07/17/25 07/18/25 07/19/25 22:59 23:59 23:59 23:59 Intake Total 2685.3 2791.0 2448.0 921.6 Output Total 414 278 7635 690 Balance 1753.3 1981.0 693.0 231.6 Meds/Results Medications: Active Medications Generic Name Dose Route Start Last Admin Trade Name Freq PRN Reason Stop Dose Admin Albuterol/Ipratropium 3 ml 07/16/25 08:21 07/17/25 19:36 Ipratropium 0.5 Mg/Albuterol Sulfate 2.5 Mg (Base) Ampul.Neb 3 Ml INHALATION 3 ml Q6HRT PRN Administration Wheezing Dextrose 12.5 gm 07/16/25 08:21 Dextrose 50% 25 Gm/50 Ml Syringe IV PUSH PRN PRN Hypoglycemia Protocol Enoxaparin Sodium 65 mg 07/16/25 09:00 07/18/25 21:27 Enoxaparin 80 Mg/0.8 Ml Syringe SUB-Q 65 mg Q12HR MIGUEL A Administration Folic Acid 1 mg 07/16/25 09:00 07/18/25 09:25 Folic Acid 1 Mg Tablet FEED TUBE 1 mg DAILY MIGUEL A Administration Glucagon 1 mg 07/16/25 08:21 Glucagon For Inj 1 Mg Vial IM PRN PRN Hypoglycemia Protocol Glucose 15 gm 07/16/25 08:21 Glucose Oral Gel 15 Gm Of Glucse In 37.5 Gm Tube PO PRN PRN Hypoglycemia Protocol Fentanyl Citrate 2,500 mcg in 250 mls @ 7.5 mls/hr 07/16/25 00:30 07/19/25 06:00 Fentanyl 2,500 Mcg/Ns 250 Ml IV CONT 75 mcg/hr .[id number] MIGUEL A 7.5 mls/hr Protocol Titration 75 MCG/HR Propofol 100 mls @ 11.196 mls/hr 07/16/25 05:25 07/19/25 06:00 Diprivan IV CONT 30 mcg/kg/min .[id number] MIGUEL A 11.2 mls/hr Protocol Administration 30 MCG/KG/MIN Dextrose 1,000 mls @ 100 mls/hr 07/16/25 08:21 Dextrose 5% 1,000 Ml IVPB PRN PRN Hypoglycemia Protocol Ceftriaxone Sodium 2 gm/ 100 mls @ 200 mls/hr 07/16/25 11:00 07/18/25 13:00 Sodium Chloride IVPB 07/22/25 11:29 Infused Q24H MIGUEL A Infusion Dexmedetomidine HCl 400 mcg in 100 mls @ 19.89 mls/hr 07/18/25 09:20 07/19/25 06:00 Precedex 400 Mcg/100 Ml IV CONT 1.2 mcg/kg/hr .Q5H2M MIGUEL A 19.89 mls/hr Protocol Administration 1.2 MCG/KG/HR Calcium Gluconate 2,000 mg in 100 mls @ 100 mls/hr 07/19/25 07:45 Calcium Gluc 2,000 Mg/Ns 100ml IVPB 07/19/25 08:44 ONCE ONE Insulin Aspart 3 - 6 units 07/16/25 12:00 07/19/25 07:15 Insulin Aspart (*Bkc) 100 Units/Ml SUB-Q Not Given Q6HR MIGUEL A Protocol Insulin Glargine 20 units 07/17/25 09:00 07/18/25 09:27 Insulin Glargine (*Bkc) 100 Units/Ml SUB-Q 20 units QAM MIGUEL A Administration Methylprednisolone Sodium Succinate 60 mg 07/19/25 09:00 Methylprednisolone Sod Succ 125 Mg Vial IV PUSH QAM MIGUEL A Multi-Ingred Cream/Lotion/Oil/Oint 1 applic 07/16/25 21:00 07/18/25 21:27 Mineral Oil/White Petrolatum Ointment EACH EYE 1 applic Q12HR MIGUEL A Administration Pantoprazole Sodium 40 mg 07/16/25 09:00 07/18/25 09:24 Pantoprazole Sodium Iv 40 Mg Vial IV PUSH 40 mg QAM MIGUEL A Administration Perflutren Lipid Microsphere 0 ml 07/16/25 08:17 Perflutren Lipid Microspheres 1.5 Ml Vial Diluted To 10 Ml Total Volume IV PUSH 07/19/25 08:18 ONCE PRN adequate visualization Protocol Sodium Chloride 10 ml 07/17/25 14:00 07/18/25 21:27 Central Line Flush IV PUSH 10 ml Q8HR MIGUEL A Administration Sodium Chloride 20 ml 07/17/25 06:35 Central Line Flush IV PUSH PRN PRN after blood draws Thiamine HCl 100 mg 07/16/25 09:00 07/18/25 09:25 Thiamine Hcl 100 Mg Tablet FEED TUBE 100 mg QAM MIGUEL A Administration Radiology Results: ITS Impressions Chest CTA 07/16/25 08:43 IMPRESSION: 1. No pulmonary embolus. 2. Moderate-sized left pneumothorax. 3. Mild pulmonary edema. 4. Left lung upper lobe nodules, which may be infection or less likely metastatic disease. 5. Moderate emphysema. Chest X-Ray 07/19/25 08:10 Impression: No significant change Labs Labs: Laboratory Results - last 24 hr 07/18/25 07/18/25 07/19/25 14:17 18:51 04:50 WBC RBC Hgb Hct MCV MCH MCHC RDW Plt Count MPV % Immature Plt Fraction Puncture Site Left radial ABG pH 7.484 H ABG pCO2 35.1 ABG pO2 84.5 ABG PO2/FiO2 Ratio 3.38 ABG HCO3 25.8 ABG O2 Saturation 97.0 ABG O2 Content 18.0 ABG Base Excess 2.6 A-a Gradient 52.1 Oxyhemoglobin 95.8 Carboxyhemoglobin 0.6 Methemoglobin 0.0 Reduced Hemoglobin 3.6 Total Hemoglobin 13.3 O2 Delivery Device Ventilator O2 Liters/Min Not Reportable Minute Volume Not Reportable Vent Rate 18 Vent Mode Cmv FiO2 25 Tidal Volume 420 PEEP 5 Peak Inspir Pressure Not Reportable Pressure Support Not Reportable Sodium Potassium Chloride Carbon Dioxide Anion Gap BUN Creatinine Estim Creat Clear Calc Estimated GFR Glucose POC Capillary Glucose 189 H 145 H Calcium Phosphorus Magnesium Total Bilirubin AST ALT Alkaline Phosphatase Total Protein Albumin 07/19/25 07/19/25 06:21 07:53 WBC 10.5 H RBC 4.10 L Hgb 12.1 L Hct 37.3 L MCV 91.0 MCH 29.5 MCHC 32.4 RDW 16.8 H Plt Count 121 L MPV 10.5 H % Immature Plt Fraction 4.0 Puncture Site ABG pH ABG pCO2 ABG pO2 ABG PO2/FiO2 Ratio ABG HCO3 ABG O2 Saturation ABG O2 Content ABG Base Excess A-a Gradient Oxyhemoglobin Carboxyhemoglobin Methemoglobin Reduced Hemoglobin Total Hemoglobin O2 Delivery Device O2 Liters/Min Minute Volume Vent Rate Vent Mode FiO2 Tidal Volume PEEP Peak Inspir Pressure Pressure Support Sodium 132 L Potassium 4.4 Chloride 102 Carbon Dioxide 30 Anion Gap 0 L BUN 44 H Creatinine 0.67 L Estim Creat Clear Calc 88 Estimated GFR > 60 Glucose 127 H POC Capillary Glucose 154 H Calcium 7.7 L Phosphorus 3.1 Magnesium 2.1 Total Bilirubin 0.4 AST 32 ALT 25 Alkaline Phosphatase 49 Total Protein 5.8 L Albumin 3.0 L Quality VTE Prophylaxis VTE prophylaxis: pharmacologic ordered
--- NOTE | 2025-07-19 10:43 | PCFNICU ---
ICU Rounding Note: Pt current nutrition is Vital AF 1.2 at 50 ml/hr. Last recorded weight is 66.3 kg, up from 65.5 kg on admit. Bowel Motility: No BM Labs Reviewed: Glu 127, BUN 44, Cr 0.67, Na 132, Hct 37.3, Hgb 12.1 Meds Noted: Thiamine, Folic Acid, Lantus, Precedex. Skin: WNL Additional Notes: Patient remains on a mechanical vent. Discussions regarding extubation today. Tube feedings being tolerated of Vital AF 1.2 at 50 ml/hr, providing 1320 kcal/83 gm protein/892 ml water. Flush 30 ml q 4 hours. Agree with diet orders. Following daily in ICU rounds. Monitoring meds, weights, labs, tube feeding tolerance, output, plan of care Follow up Thursday/Thursday.
[2025-07-19 10:49] LABS: PCO2 ABG 36.0 mmHg (35.0-45.0); PO2 ABG 89.0 mmHg (80.0-100.0)
[2025-07-19 10:50] LABS: HCO3 ABG 26.3 mEq/l (22.0-26.0); Oxygen Saturation ABG 97.4 % (95.0-100.0)
[2025-07-19 10:51] LABS: Fractional Inspired Oxygen 25 %
[2025-07-19 10:52] LABS: Alveolar/Arterial O2 Gradient 46.5 mmHg
[2025-07-19 10:53] LABS: Oxygen Content ABG 18.6 %vol (16.0-22.0); PO2 FiO2 Ratio Arterial Blood 3.56 %
[2025-07-19 10:55] LABS: Arterial Blood Gas Pressure Support 8 cmH2O
[2025-07-19] MEDS: cefTRIAXone 2 GM in SODIUM CHLORIDE 0.9% IV 100 ML 200 ML IVPB (10:56)
--- NOTE | 2025-07-19 13:42 | P.PNGS_ITS ---
Progress Note: A&P Assessment and Plan (1) Pneumothorax, left: Code(s): J93.9 - Pneumothorax, unspecified Status: Acute Assessment and Plan: * Patient remains on the ventilator with FiO2 of 25% and good oxygen saturation. Chest tube remains in good position with no air leak. CXR showed no pneumothorax this morning. * Will keep chest tube to suction. Continue to monitor with serial CXR daily, exam and labs. * He is going through spontaneous breathing trial this morning. (2) Respiratory failure with hypoxia and hypercapnia: Qualifiers: Chronicity: acute Qualified Code(s): J96.01 - Acute respiratory failure with hypoxia; J96.02 - Acute respiratory failure with hypercapnia Code(s): J96.91 - Respiratory failure, unspecified with hypoxia; J96.92 - Respiratory failure, unspecified with hypercapnia Status: Acute (3) COPD (chronic obstructive pulmonary disease): Qualifiers: COPD type: emphysema Emphysema type: unspecified Qualified Code(s): J43.9 - Emphysema, unspecified Code(s): J44.9 - Chronic obstructive pulmonary disease, unspecified Status: Chronic (4) Sepsis: Qualifiers: Sepsis type: sepsis due to unspecified organism Sepsis acute organ dysfunction status: without acute organ dysfunction Qualified Code(s): A41.9 - Sepsis, unspecified organism Code(s): A41.9 - Sepsis, unspecified organism Status: Acute Assessment and Plan: Source unclear. (5) Atrial fibrillation with rapid ventricular response: Code(s): I48.91 - Unspecified atrial fibrillation Status: Acute (6) Polysubstance abuse: Code(s): F19.10 - Other psychoactive substance abuse, uncomplicated Status: Chronic Subjective Subjective Date/Time Seen: 07/19/25 09:42 Interval history: Patient intubated in the ICU. He is sleeping and nursing had recently turned off sedation. He is arousable but nurse reports he is very restless and agitated when he wakes up. He had pulled off his IV dressings and pulled at tubes/lines. No acute issues overnight. No air leak noted by nurse. CXR this morning with no pneumothorax. Exam Const: General: ill appearing Orientation/consciousness: patient obtunded Chest: Chest palpation & inspection: no crepitus and No rash Other: Left lateral chest tube in place. No air leak. Minimal serosanguineous drainage in canister (30 cc out in the past 12 hours). Resp: Effort & Inspection: abnormal respiratory pattern (On mechanical ventilator) Auscultation: diminished lung sounds (throughout) Objective Data Vital Signs Vital Signs: Vital Signs - 24 hr 07/18/25 14:00 07/18/25 14:00 07/18/25 14:00 Temperature Pulse Rate 62 57 L 61 Respiratory Rate 16 16 Blood Pressure 89/62 L 89/62 L Pulse Oximetry 100 Oxygen Delivery Oxygen Flow Rate Fraction of Inspired Oxygen 07/18/25 14:00 07/18/25 14:00 07/18/25 14:04 Temperature Pulse Rate 68 57 L 59 L Respiratory Rate 19 Blood Pressure Pulse Oximetry 100 Oxygen Delivery Mechanical Ventilation Oxygen Flow Rate Fraction of Inspired Oxygen 07/18/25 14:17 07/18/25 14:28 07/18/25 14:30 Temperature Pulse Rate 63 68 56 L Respiratory Rate 17 23 H 15 Blood Pressure 90/70 L 86/60 L Pulse Oximetry 100 100 Oxygen Delivery Oxygen Flow Rate Fraction of Inspired Oxygen 07/18/25 14:31 07/18/25 14:41 07/18/25 15:00 Temperature Pulse Rate 50 L 78 64 Respiratory Rate 17 24 H 17 Blood Pressure 93/78 L 85/61 L Pulse Oximetry 100 100 100 Oxygen Delivery Oxygen Flow Rate Fraction of Inspired Oxygen 07/18/25 15:01 07/18/25 15:30 07/18/25 15:31 Temperature Pulse Rate 59 L 60 63 Respiratory Rate 18 17 17 Blood Pressure 89/59 L Pulse Oximetry 100 100 100 Oxygen Delivery Oxygen Flow Rate Fraction of Inspired Oxygen 07/18/25 16:00 07/18/25 16:00 07/18/25 16:00 Temperature Pulse Rate 75 Respiratory Rate 21 H Blood Pressure Pulse Oximetry 98 99 Oxygen Delivery Mechanical Ventilation Oxygen Flow Rate Fraction of Inspired Oxygen 07/18/25 16:00 07/18/25 16:01 07/18/25 16:02 Temperature 98.2 F 98.2 F Pulse Rate 75 66 78 Respiratory Rate 22 H 19 Blood Pressure 114/71 Pulse Oximetry 99 99 Oxygen Delivery Oxygen Flow Rate Fraction of Inspired Oxygen 07/18/25 16:03 07/18/25 16:03 07/18/25 16:04 Temperature Pulse Rate 77 77 77 Respiratory Rate 20 20 Blood Pressure 114/71 Pulse Oximetry Oxygen Delivery Oxygen Flow Rate Fraction of Inspired Oxygen 07/18/25 16:04 07/18/25 16:04 07/18/25 16:30 Temperature Pulse Rate 77 77 65 Respiratory Rate 21 H 20 16 Blood Pressure Pulse Oximetry 99 Oxygen Delivery Oxygen Flow Rate Fraction of Inspired Oxygen 07/18/25 16:33 07/18/25 17:00 07/18/25 17:01 Temperature Pulse Rate 68 66 67 Respiratory Rate 16 16 15 Blood Pressure 99/73 L 102/66 Pulse Oximetry 100 100 100 Oxygen Delivery Oxygen Flow Rate Fraction of Inspired Oxygen 07/18/25 17:30 07/18/25 17:31 07/18/25 17:58 Temperature Pulse Rate 67 59 L 62 Respiratory Rate 16 15 Blood Pressure 102/76 Pulse Oximetry 100 100 98 Oxygen Delivery Mechanical Ventilation Oxygen Flow Rate Fraction of Inspired Oxygen 25 07/18/25 18:00 07/18/25 18:00 07/18/25 18:00 Temperature Pulse Rate 71 62 62 Respiratory Rate 18 Blood Pressure 102/72 Pulse Oximetry Oxygen Delivery Oxygen Flow Rate Fraction of Inspired Oxygen 07/18/25 18:00 07/18/25 18:00 07/18/25 18:00 Temperature Pulse Rate 62 62 62 Respiratory Rate 18 18 18 Blood Pressure 105/75 Pulse Oximetry 100 Oxygen Delivery Oxygen Flow Rate Fraction of Inspired Oxygen 07/18/25 18:01 07/18/25 18:30 07/18/25 18:31 Temperature Pulse Rate 61 62 60 Respiratory Rate 15 17 18 Blood Pressure 106/73 Pulse Oximetry 100 100 100 Oxygen Delivery Oxygen Flow Rate Fraction of Inspired Oxygen 07/18/25 19:00 07/18/25 19:01 07/18/25 19:05 Temperature Pulse Rate 72 88 86 Respiratory Rate 16 16 25 H Blood Pressure 104/74 Pulse Oximetry 100 100 Oxygen Delivery Oxygen Flow Rate Fraction of Inspired Oxygen 07/18/25 20:00 07/18/25 20:00 07/18/25 20:00 Temperature Pulse Rate 68 62 66 Respiratory Rate 18 18 Blood Pressure 106/73 Pulse Oximetry Oxygen Delivery Oxygen Flow Rate Fraction of Inspired Oxygen 07/18/25 20:00 07/18/25 20:00 07/18/25 20:00 Temperature Pulse Rate 65 66 Respiratory Rate 18 18 Blood Pressure Pulse Oximetry 99 Oxygen Delivery Mechanical Ventilation Oxygen Flow Rate Fraction of Inspired Oxygen 25 07/18/25 20:00 07/18/25 20:00 07/18/25 20:06 Temperature 97.8 F Pulse Rate 66 66 76 Respiratory Rate 18 Blood Pressure 106/73 Pulse Oximetry 99 99 Oxygen Delivery Mechanical Ventilation Oxygen Flow Rate Fraction of Inspired Oxygen 25 07/18/25 20:30 07/18/25 21:00 07/18/25 21:30 Temperature Pulse Rate 88 60 56 L Respiratory Rate 26 H 18 18 Blood Pressure 100/65 Pulse Oximetry 99 Oxygen Delivery Oxygen Flow Rate Fraction of Inspired Oxygen 07/18/25 22:00 07/18/25 22:00 07/18/25 22:00 Temperature Pulse Rate 54 L 54 L 54 L Respiratory Rate 18 18 18 Blood Pressure Pulse Oximetry Oxygen Delivery Oxygen Flow Rate Fraction of Inspired Oxygen 07/18/25 22:00 07/18/25 22:00 07/18/25 22:42 Temperature 97.9 F Pulse Rate 54 L 54 L 64 Respiratory Rate 18 18 Blood Pressure 110/71 Pulse Oximetry 99 Oxygen Delivery Oxygen Flow Rate Fraction of Inspired Oxygen 07/18/25 22:42 07/18/25 22:58 07/19/25 00:00 Temperature 98.2 F Pulse Rate 64 57 L 71 Respiratory Rate 18 18 Blood Pressure 96/69 L Pulse Oximetry 100 100 Oxygen Delivery Mechanical Ventilation Oxygen Flow Rate Fraction of Inspired Oxygen 07/19/25 00:00 07/19/25 00:00 07/19/25 00:00 Temperature Pulse Rate 71 71 Respiratory Rate 20 Blood Pressure Pulse Oximetry 100 Oxygen Delivery Mechanical Ventilation Oxygen Flow Rate Fraction of Inspired Oxygen 07/19/25 00:01 07/19/25 00:01 07/19/25 00:01 Temperature Pulse Rate 71 71 71 Respiratory Rate 20 20 20 Blood Pressure Pulse Oximetry Oxygen Delivery Oxygen Flow Rate Fraction of Inspired Oxygen 07/19/25 00:09 07/19/25 00:30 07/19/25 00:35 Temperature Pulse Rate 71 88 88 Respiratory Rate 20 24 H 24 H Blood Pressure Pulse Oximetry Oxygen Delivery Oxygen Flow Rate Fraction of Inspired Oxygen 07/19/25 01:00 07/19/25 01:48 07/19/25 02:00 Temperature 96.5 F L Pulse Rate 65 71 64 Respiratory Rate 16 15 Blood Pressure 110/60 Pulse Oximetry 100 100 Oxygen Delivery Mechanical Ventilation Oxygen Flow Rate Fraction of Inspired Oxygen 07/19/25 02:00 07/19/25 02:00 07/19/25 02:00 Temperature Pulse Rate 64 64 68 Respiratory Rate 16 16 Blood Pressure 118/88 Pulse Oximetry 100 Oxygen Delivery Oxygen Flow Rate Fraction of Inspired Oxygen 07/19/25 03:00 07/19/25 04:00 07/19/25 04:00 Temperature Pulse Rate 73 66 73 Respiratory Rate 16 16 16 Blood Pressure 121/85 Pulse Oximetry 100 Oxygen Delivery Oxygen Flow Rate Fraction of Inspired Oxygen 07/19/25 04:00 07/19/25 04:00 07/19/25 04:00 Temperature Pulse Rate 73 73 71 Respiratory Rate 16 16 Blood Pressure Pulse Oximetry 100 Oxygen Delivery Mechanical Ventilation Oxygen Flow Rate Fraction of Inspired Oxygen 07/19/25 04:00 07/19/25 04:00 07/19/25 04:57 Temperature 97.7 F Pulse Rate 79 71 Respiratory Rate 20 Blood Pressure 128/85 Pulse Oximetry 99 100 Oxygen Delivery Mechanical Ventilation Oxygen Flow Rate Fraction of Inspired Oxygen 07/19/25 05:00 07/19/25 06:00 07/19/25 06:00 Temperature Pulse Rate 75 77 77 Respiratory Rate 16 16 16 Blood Pressure 117/82 Pulse Oximetry 99 Oxygen Delivery Oxygen Flow Rate Fraction of Inspired Oxygen 07/19/25 06:00 07/19/25 06:00 07/19/25 06:00 Temperature Pulse Rate 77 72 72 Respiratory Rate 19 18 18 Blood Pressure Pulse Oximetry Oxygen Delivery Oxygen Flow Rate Fraction of Inspired Oxygen 07/19/25 06:00 07/19/25 06:00 07/19/25 07:00 Temperature Pulse Rate 74 76 84 Respiratory Rate 17 18 Blood Pressure 123/92 H 132/84 Pulse Oximetry 98 97 Oxygen Delivery Oxygen Flow Rate Fraction of Inspired Oxygen 07/19/25 08:00 07/19/25 08:00 07/19/25 08:00 Temperature Pulse Rate 74 Respiratory Rate Blood Pressure Pulse Oximetry 96 Oxygen Delivery Mechanical Ventilation Oxygen Flow Rate Fraction of Inspired Oxygen 07/19/25 08:00 07/19/25 08:00 07/19/25 08:00 Temperature 98.0 F Pulse Rate 83 83 83 Respiratory Rate 22 H 22 H 22 H Blood Pressure 145/99 H Pulse Oximetry 98 Oxygen Delivery Oxygen Flow Rate Fraction of Inspired Oxygen 07/19/25 08:00 07/19/25 08:17 07/19/25 09:00 Temperature Pulse Rate 83 84 93 Respiratory Rate 22 H 17 Blood Pressure 141/95 H Pulse Oximetry 98 91 Oxygen Delivery Mechanical Ventilation Oxygen Flow Rate Fraction of Inspired Oxygen 07/19/25 10:00 07/19/25 10:00 07/19/25 10:00 Temperature 98.6 F Pulse Rate 84 93 84 Respiratory Rate 15 15 Blood Pressure 142/107 H Pulse Oximetry 91 Oxygen Delivery Oxygen Flow Rate Fraction of Inspired Oxygen 07/19/25 10:00 07/19/25 10:00 07/19/25 10:28 Temperature Pulse Rate 84 84 88 Respiratory Rate 17 15 Blood Pressure Pulse Oximetry 97 Oxygen Delivery Mechanical Ventilation Oxygen Flow Rate Fraction of Inspired Oxygen 07/19/25 10:57 07/19/25 10:57 07/19/25 11:00 Temperature Pulse Rate 86 86 81 Respiratory Rate 19 19 14 Blood Pressure 140/101 H Pulse Oximetry 96 Oxygen Delivery Oxygen Flow Rate Fraction of Inspired Oxygen 07/19/25 12:00 Temperature Pulse Rate Respiratory Rate Blood Pressure Pulse Oximetry 95 Oxygen Delivery Nasal Cannula Oxygen Flow Rate 2 Fraction of Inspired Oxygen Intake/Output Intake/Output: Intake & Output 07/16/25 07/17/25 07/18/25 07/19/25 22:59 23:59 23:59 23:59 Intake Total 2685.3 2791.0 2448.0 1057.5 Output Total 280 802 8263 690 Balance 1753.3 1981.0 693.0 367.5 Meds/Results Medications: Active Medications Generic Name Dose Route Start Last Admin Trade Name Freq PRN Reason Stop Dose Admin Albuterol/Ipratropium 3 ml 07/16/25 08:21 07/17/25 19:36 Ipratropium 0.5 Mg/Albuterol Sulfate 2.5 Mg (Base) Ampul.Neb 3 Ml INHALATION 3 ml Q6HRT PRN Administration Wheezing Dextrose 12.5 gm 07/16/25 08:21 Dextrose 50% 25 Gm/50 Ml Syringe IV PUSH PRN PRN Hypoglycemia Protocol Diltiazem HCl 30 mg 07/19/25 18:00 Diltiazem Hcl 30 Mg Tablet PO Q6HR MIGUEL A Enoxaparin Sodium 65 mg 07/16/25 09:00 07/19/25 08:01 Enoxaparin 80 Mg/0.8 Ml Syringe SUB-Q 65 mg Q12HR MIGUEL A Administration Folic Acid 1 mg 07/16/25 09:00 07/19/25 08:13 Folic Acid 1 Mg Tablet FEED TUBE 1 mg DAILY MIGUEL A Administration Glucagon 1 mg 07/16/25 08:21 Glucagon For Inj 1 Mg Vial IM PRN PRN Hypoglycemia Protocol Glucose 15 gm 07/16/25 08:21 Glucose Oral Gel 15 Gm Of Glucse In 37.5 Gm Tube PO PRN PRN Hypoglycemia Protocol Dextrose 1,000 mls @ 100 mls/hr 07/16/25 08:21 Dextrose 5% 1,000 Ml IVPB PRN PRN Hypoglycemia Protocol Ceftriaxone Sodium 2 gm/ 100 mls @ 200 mls/hr 07/16/25 11:00 07/19/25 10:56 Sodium Chloride IVPB 07/22/25 11:29 200 mls/hr Q24H MIGUEL A Administration Dexmedetomidine HCl 400 mcg in 100 mls @ 19.89 mls/hr 07/18/25 09:20 07/19/25 10:57 Precedex 400 Mcg/100 Ml IV CONT 1.2 mcg/kg/hr .Q5H2M MIGUEL A 19.89 mls/hr Protocol Administration 1.2 MCG/KG/HR Insulin Aspart 3 - 6 units 07/16/25 12:00 07/19/25 11:07 Insulin Aspart (*Bkc) 100 Units/Ml SUB-Q Not Given Q6HR [facility]1983 Protocol Insulin Glargine 20 units 07/17/25 09:00 07/19/25 08:11 Insulin Glargine (*Bkc) 100 Units/Ml SUB-Q 20 units QAM MIGUEL A Administration Labetalol HCl 20 mg 07/19/25 13:07 Labetalol Hcl Inj 100 Mg/20 Ml Vial IV PUSH Q4H PRN SBP > 160 and HR> 60 -1st choice Methylprednisolone Sodium Succinate 60 mg 07/19/25 09:00 07/19/25 08:01 Methylprednisolone Sod Succ 125 Mg Vial IV PUSH 60 mg QAM MIGUEL A Administration Metoprolol Tartrate 5 mg 07/19/25 13:07 Metoprolol Tartrate Inj 5 Mg/5 Ml Vial IV PUSH Q2H PRN Heart rate more than 120 Multi-Ingred Cream/Lotion/Oil/Oint 1 applic 07/16/25 21:00 07/19/25 08:13 Mineral Oil/White Petrolatum Ointment EACH EYE 1 applic Q12HR MIGUEL A Administration Pantoprazole Sodium 40 mg 07/16/25 09:00 07/19/25 08:01 Pantoprazole Sodium Iv 40 Mg Vial IV PUSH 40 mg QAM MIGUEL A Administration Sodium Chloride 10 ml 07/17/25 14:00 07/19/25 08:00 Central Line Flush IV PUSH 10 ml Q8HR MIGUEL A Administration Sodium Chloride 20 ml 07/17/25 06:35 Central Line Flush IV PUSH PRN PRN after blood draws Thiamine HCl 100 mg 07/16/25 09:00 07/19/25 08:13 Thiamine Hcl 100 Mg Tablet FEED TUBE 100 mg QAM MIGUEL A Administration Radiology Results: ITS Impressions Chest CTA 07/16/25 08:43 IMPRESSION: 1. No pulmonary embolus. 2. Moderate-sized left pneumothorax. 3. Mild pulmonary edema. 4. Left lung upper lobe nodules, which may be infection or less likely metastatic disease. 5. Moderate emphysema. Chest X-Ray 07/19/25 08:10 Impression: No significant change Labs Labs: Laboratory Results - last 24 hr 07/18/25 07/18/25 07/19/25 14:17 18:51 04:50 WBC RBC Hgb Hct MCV MCH MCHC RDW Plt Count MPV % Immature Plt Fraction Puncture Site Left radial ABG pH 7.484 H ABG pCO2 35.1 ABG pO2 84.5 ABG PO2/FiO2 Ratio 3.38 ABG HCO3 25.8 ABG O2 Saturation 97.0 ABG O2 Content 18.0 ABG Base Excess 2.6 A-a Gradient 52.1 Oxyhemoglobin 95.8 Carboxyhemoglobin 0.6 Methemoglobin 0.0 Reduced Hemoglobin 3.6 Total Hemoglobin 13.3 O2 Delivery Device Ventilator O2 Liters/Min Not Reportable Minute Volume Not Reportable Vent Rate 18 Vent Mode Cmv FiO2 25 Tidal Volume 420 PEEP 5 Peak Inspir Pressure Not Reportable Pressure Support Not Reportable Sodium Potassium Chloride Carbon Dioxide Anion Gap BUN Creatinine Estim Creat Clear Calc Estimated GFR Glucose POC Capillary Glucose 189 H 145 H Calcium Phosphorus Magnesium Total Bilirubin AST ALT Alkaline Phosphatase Total Protein Albumin 07/19/25 07/19/25 07/19/25 06:21 07:53 10:40 WBC 10.5 H RBC 4.10 L Hgb 12.1 L Hct 37.3 L MCV 91.0 MCH 29.5 MCHC 32.4 RDW 16.8 H Plt Count 121 L MPV 10.5 H % Immature Plt Fraction 4.0 Puncture Site Not Reportable ABG pH 7.482 H ABG pCO2 36.0 ABG pO2 89.0 ABG PO2/FiO2 Ratio 3.56 ABG HCO3 26.3 H ABG O2 Saturation 97.4 ABG O2 Content 18.6 ABG Base Excess 3.0 A-a Gradient 46.5 Oxyhemoglobin 96.1 Carboxyhemoglobin Methemoglobin Reduced Hemoglobin Total Hemoglobin 13.7 O2 Delivery Device Ventilator O2 Liters/Min Not Reportable Minute Volume Not Reportable Vent Rate Not Reportable Vent Mode Spontaneous FiO2 25 Tidal Volume Not Reportable PEEP 5 Peak Inspir Pressure Not Reportable Pressure Support 8 Sodium 132 L Potassium 4.4 Chloride 102 Carbon Dioxide 30 Anion Gap 0 L BUN 44 H Creatinine 0.67 L Estim Creat Clear Calc 88 Estimated GFR > 60 Glucose 127 H POC Capillary Glucose 154 H Calcium 7.7 L Phosphorus 3.1 Magnesium 2.1 Total Bilirubin 0.4 AST 32 ALT 25 Alkaline Phosphatase 49 Total Protein 5.8 L Albumin 3.0 L 07/19/25 11:06 WBC RBC Hgb Hct MCV MCH MCHC RDW Plt Count MPV % Immature Plt Fraction Puncture Site ABG pH ABG pCO2 ABG pO2 ABG PO2/FiO2 Ratio ABG HCO3 ABG O2 Saturation ABG O2 Content ABG Base Excess A-a Gradient Oxyhemoglobin Carboxyhemoglobin Methemoglobin Reduced Hemoglobin Total Hemoglobin O2 Delivery Device O2 Liters/Min Minute Volume Vent Rate Vent Mode FiO2 Tidal Volume PEEP Peak Inspir Pressure Pressure Support Sodium Potassium Chloride Carbon Dioxide Anion Gap BUN Creatinine Estim Creat Clear Calc Estimated GFR Glucose POC Capillary Glucose 102 Calcium Phosphorus Magnesium Total Bilirubin AST ALT Alkaline Phosphatase Total Protein Albumin
[2025-07-19] MEDS: dexmedeTOMIDine 400 MCG/100 ML 400 MCG/100 ML BAG 13.26 MCG IV CONT (18:25)
[2025-07-19] MEDS: MAG HYDROX/AL HYDROX/SIMETH 30 ML UDC PO (21:41)
[2025-07-19] MEDS: IPRATROPIUM 0.5 MG/ALBUTEROL SULFATE 2.5 MG (BASE) AMPUL.NEB 3 ML INHALATION (23:48)
[2025-07-20] VITALS (40 sets, daily range): BP systolic 137–173; BP diastolic 89–124; PULSE 86–122; RESP 16–33; TEMP 36.6–36.9; O2SAT 93–100
--- NOTE | 2025-07-20 03:43 | PC.NURSE ---
Report given to Marline FIERRO
[2025-07-20] MEDS: dexmedeTOMIDine 400 MCG/100 ML 400 MCG/100 ML BAG 18.23 MCG IV CONT (04:45)
[2025-07-20 04:48] LABS: Hematocrit 40.5 % (42.0-52.0); Hemoglobin 13.7 g/dL (14.0-18.0); Mean Corpuscular HGB Conc 33.8 g/dl (32-36); Mean Corpuscular Hemoglobin 29.7 pg (26-34); Mean Corpuscular Volume 87.9 fl (80-100); Platelet Count Result 153 k/mm3 (150-375); Red Blood Count 4.61 M/mm3 (4.6-6.20); White Blood Count 10.2 K/mm3 (4.5-10.0)
[2025-07-20 05:06] LABS: Alanine Aminotransferase 28 U/L (6-50); Albumin Level 3.2 g/dL (3.5-5.1); Alkaline Phosphatase 49 U/L (38-126); Anion Gap 3 mmol/L (4-12); Aspartate Amino Transferase 32 U/L (17-59); Bilirubin,Total 0.7 mg/dL (0.2-1.3); Blood Urea Nitrogen 36 mg/dL (9-20); Calcium 7.9 mg/dL (8.4-10.2); Carbon Dioxide 27 mmol/L (22-30); Chloride 99 mmol/L (98-107); Estimated CRCL calculation 77 ml/min; Estimated Glomerular Filt Rate > 60; Glucose 86 mg/dL (65-110); Magnesium 2.0 mg/dL (1.6-2.3); Potassium 4.0 mmol/L (3.4-5.0); Sodium 129 mmol/L (137-145); Total Protein 6.2 g/dL (6.3-8.2)
--- NOTE | 2025-07-20 05:07 | P.PNCROSS_ITS ---
Event Note Event Note Event Note: Patient's urine culture was reviewed and noted to grow Klebsiella oxytoca. Th is is resistant to ceftriaxone but was sensitive to meropenem. Meropenem was started. Rocephin was discontinued.
[2025-07-20 05:08] LABS: Alveolar/Arterial O2 Gradient 57.5 mmHg; Carboxyhemoglobin 1.1 % THb (0-2.0); Fractional Inspired Oxygen 23 %; HCO3 ABG 27.3 mEq/l (22.0-26.0); Methemoglobin ABG 0.1 %THb (0-1.5); Oxygen Content ABG 19.3 %vol (16.0-22.0); Oxygen Saturation ABG 95.1 % (95.0-100.0); PCO2 ABG 33.7 mmHg (35.0-45.0); PO2 ABG 66.3 mmHg (80.0-100.0); PO2 FiO2 Ratio Arterial Blood 2.88 %; Reduced Hemoglobin 5.9 %THb (0-5.0)
[2025-07-20 05:46] LABS: Liters per Minute 0.5 LPM; Modified Allen's Test Pass; Site Drawn RIGHT RADIAL
[2025-07-20] MEDS: CENTRAL LINE FLUSH 10 ML IV PUSH ×3 (05:58→20:59)
[2025-07-20] MEDS: MEROPENEM 1 GM in SODIUM CHLORIDE 0.9% IV 100 ML 200 ML IVPB (05:58)
[2025-07-20] MEDS: ENOXAPARIN 80 MG/0.8 ML SYRINGE 65 MG SUB-Q ×2 (09:26→20:50)
[2025-07-20] MEDS: FOLIC ACID 1 MG TABLET PO (09:27)
[2025-07-20] MEDS: PANTOPRAZOLE SODIUM IV 40 MG VIAL IV PUSH (09:27)
[2025-07-20] MEDS: THIAMINE HCL 100 MG TABLET PO (09:28)
[2025-07-20] MEDS: LORazepam (*CRX) 1 MG TABLET PO ×2 (09:28→17:13)
--- NOTE | 2025-07-20 09:51 | WPDINTPN ---
Progress Note: A&P Assessment and Plan (1) Respiratory failure with hypoxia and hypercapnia: Qualifiers: Chronicity: acute Qualified Code(s): J96.01 - Acute respiratory failure with hypoxia; J96.02 - Acute respiratory failure with hypercapnia Code(s): J96.91 - Respiratory failure, unspecified with hypoxia; J96.92 - Respiratory failure, unspecified with hypercapnia Status: Acute Assessment and Plan: Multifactorial acute on chronic respiratory failure secondary to acute exacerbation of COPD, left pneumothorax and AFib with RVR Patient now intubated and sedated Vent settings reviewed and I have decreased the tidal volume to 420 and rate to 18 Left pneumothorax Status post chest tube placement which is to suction and there is no air leak at this time Empiric Rocephin for COPD exacerbation. No significant consolidation on infiltrates on the CT scan to suggest pneumonia. Negative blood cultures till now Viral panel was negative CT scan and chest x-ray reviewed Sedated with fentanyl and propofol at this time. At [facility] 07/18 sedation holiday was performed to evaluate patient for weaning trial. Patient became tachypneic with respiratory rate in high 30s with increased respiratory distress and work of breathing. Patient was diaphoretic. Sedation holiday was aborted and patient was placed back on sedation. Patient never went on PSV 07/19 weaning trial was done. Patient was extubated. 07/20 patient has done well and is on nasal cannula. Continue BiPAP p.r.n. Continue steroids and bronchodilators (2) Acute exacerbation of chronic obstructive pulmonary disease: Code(s): J44.1 - Chronic obstructive pulmonary disease with (acute) exacerbation Status: Acute Assessment and Plan: See above (3) Pneumothorax, left: Code(s): J93.9 - Pneumothorax, unspecified Status: Acute Assessment and Plan: Patient is now extubated. No air leak. Chest x-ray shows no or residual pneumothorax. I will clamp the chest tube and repeat chest x-ray few hours (4) Alcohol abuse: Code(s): F10.10 - Alcohol abuse, uncomplicated Status: Acute Assessment and Plan: See op monitoring ordered Continue thiamine and folic acid P.r.n. benzodiazepine ordered as per CIWA score Wean off Precedex drip (5) Hypertension: Code(s): I10 - Essential (primary) hypertension Status: Acute Assessment and Plan: Increase p.o. Cardizem (6) Atrial fibrillation with rapid ventricular response: Code(s): I48.91 - Unspecified atrial fibrillation Status: Acute Assessment and Plan: AFib with RVR. Continue Lovenox. Continue p.o. Cardizem and increase doses 60 q.6 hours EchoSummary 1. Left ventricular chamber dimension is normal. 2. Left ventricular systolic function is normal, estimated at 50-55%. 3. There is moderately increased left ventricular wall thickness. 4. Right ventricular systolic function is normal. 5. Left atrial chamber dimension is severely enlarged. 6. Right atrial chamber dimension is moderately enlarged. 7. There is moderate to severe mitral valve regurgitation. 8. There is mild tricuspid valve regurgitation. 9. Pulmonary hypertension, estimated pulmonary arterial systolic pressure is 45 mmHg. (7) Cardiomyopathy: Qualifiers: Cardiomyopathy type: unspecified Qualified Code(s): I42.9 - Cardiomyopathy, unspecified Code(s): I42.9 - Cardiomyopathy, unspecified Status: Acute Assessment and Plan: Echocardiogram as below (8) Electrolyte abnormality: Code(s): E87.8 - Other disorders of electrolyte and fluid balance, not elsewhere classified Status: Acute Assessment and Plan: Calcium replacement ordered (9) Hyperglycemia: Code(s): R73.9 - Hyperglycemia, unspecified Status: Acute Assessment and Plan: Continue sliding scale insulin. DC Lantus (10) Sepsis: Qualifiers: Sepsis type: sepsis due to unspecified organism Sepsis acute organ dysfunction status: without acute organ dysfunction Qualified Code(s): A41.9 - Sepsis, unspecified organism Code(s): A41.9 - Sepsis, unspecified organism Status: Acute Assessment and Plan: Secondary to UTI Urine culture is growing Klebsiella which is resistant to Rocephin Add Macrobid QQ bleed take Rocephin course for COPD exacerbation today History of Proteus UTI which was sensitive to Rocephin (11) UTI (urinary tract infection): Code(s): N39.0 - Urinary tract infection, site not specified Status: Acute Assessment and Plan: Cultures growing Klebsiella. Klebsiella is resistant to ceftriaxone I will start Macrobid p.o. Plan DVT prophylaxis -continue Lovenox therapeutic dose Stress ulcer prophylaxis -PPI Nutrition -advance diet Code Status - Full Code Total Critical Care Time - 30 minutes Due to a high probability of clinically significant, life threatening deterioration, the patient required my highest level of preparedness to intervene emergently and I personally spent this critical care time directly and personally managing the patient. This critical care time included obtaining a history; examining the patient; pulse oximetry; ordering and review of studies; arranging urgent treatment with development of a management plan; evaluation of patient's response to treatment; frequent reassessment; and discussions with other providers. It was exclusive of separately billable procedures and treating other patients and teaching time. Please see Assessment and Plan section and the rest of the note for further information on patient assessment and treatment Subjective Date/time seen: 07/20/25 Patient was extubated yesterday after a successful weaning trial. He has done well and is only on nasal cannula. He denies any shortness of breath. He states he has pain at the chest tube site. He also is requesting something to help him sleep at night. He denies any anterior chest pain abdominal pain nausea vomiting diarrhea. All the systems were reviewed and were negative He is on low-dose Precedex infusion. He is in AFib but with controlled ventricular rate. Blood pressure is slightly elevated. Good urine output. Exam Narrative: General: Pt is alert awake and in NAD Lungs/Chest: Trachea central overall decreased breath sounds throughout bilaterally, No crackles or wheezing. Chest tube on the left. No air leak present. Cardiac: RRR. Normal S1 S2. No murmurs Circulation: Pedal pulses are intact and symmetrical. Abdomen: Normal bowel sounds.. Soft. NT. ND. Extremities: No clubbing, cyanosis or edema. Warm : Lau in place Neurologic: Follows commands. Moves all 4 extremities PERRL AO x3 Skin: No Rash Objective Data Vital Signs Vital Signs: Vital Signs - 24 hr 07/19/25 10:00 07/19/25 10:00 07/19/25 10:00 Temperature 37.0 C Pulse Rate 84 93 84 Respiratory Rate 15 15 Blood Pressure 142/107 H Pulse Oximetry 91 Oxygen Delivery Oxygen Flow Rate Fraction of Inspired Oxygen 07/19/25 10:00 07/19/25 10:00 07/19/25 10:28 Temperature Pulse Rate 84 84 88 Respiratory Rate 17 15 Blood Pressure Pulse Oximetry 97 Oxygen Delivery Mechanical Ventilation Oxygen Flow Rate Fraction of Inspired Oxygen 07/19/25 10:50 07/19/25 10:57 07/19/25 10:57 Temperature Pulse Rate 91 86 86 Respiratory Rate 20 19 19 Blood Pressure Pulse Oximetry 97 Oxygen Delivery Nasal Cannula Oxygen Flow Rate 2 Fraction of Inspired Oxygen 07/19/25 11:00 07/19/25 12:00 07/19/25 12:00 Temperature 37.0 C Pulse Rate 81 92 Respiratory Rate 14 19 Blood Pressure 140/101 H 137/101 H Pulse Oximetry 96 95 96 Oxygen Delivery Nasal Cannula Oxygen Flow Rate 2 Fraction of Inspired Oxygen 07/19/25 12:00 07/19/25 12:00 07/19/25 12:00 Temperature Pulse Rate 89 92 92 Respiratory Rate 19 19 Blood Pressure Pulse Oximetry Oxygen Delivery Oxygen Flow Rate Fraction of Inspired Oxygen 07/19/25 12:00 07/19/25 13:00 07/19/25 13:00 Temperature Pulse Rate 92 96 96 Respiratory Rate 19 22 H 22 H Blood Pressure 129/95 H Pulse Oximetry 97 Oxygen Delivery Oxygen Flow Rate Fraction of Inspired Oxygen 07/19/25 14:00 07/19/25 14:00 07/19/25 14:00 Temperature Pulse Rate 101 H 101 H 101 H Respiratory Rate 23 H 23 H Blood Pressure 153/103 H Pulse Oximetry 97 Oxygen Delivery Oxygen Flow Rate Fraction of Inspired Oxygen 07/19/25 14:32 07/19/25 15:00 07/19/25 16:00 Temperature Pulse Rate 104 H 105 H 109 H Respiratory Rate 22 H 22 H 25 H Blood Pressure 138/96 H Pulse Oximetry 95 94 Oxygen Delivery Nasal Cannula Oxygen Flow Rate 2 Fraction of Inspired Oxygen 07/19/25 16:00 07/19/25 16:35 07/19/25 16:38 Temperature 36.7 C Pulse Rate 109 H 98 Respiratory Rate 23 H Blood Pressure 129/103 H Pulse Oximetry 96 96 Oxygen Delivery Nasal Cannula Oxygen Flow Rate 2 Fraction of Inspired Oxygen 07/19/25 17:00 07/19/25 18:00 07/19/25 18:00 Temperature Pulse Rate 107 H 99 94 Respiratory Rate 22 H 20 Blood Pressure 149/101 H Pulse Oximetry 95 Oxygen Delivery Oxygen Flow Rate Fraction of Inspired Oxygen 07/19/25 18:25 07/19/25 18:25 07/19/25 18:30 Temperature Pulse Rate 106 H 106 H 107 H Respiratory Rate 14 14 20 Blood Pressure 147/106 H Pulse Oximetry 98 Oxygen Delivery Oxygen Flow Rate Fraction of Inspired Oxygen 07/19/25 19:00 07/19/25 20:00 07/19/25 20:00 Temperature Pulse Rate 108 H 100 105 H Respiratory Rate 20 16 Blood Pressure 138/107 H Pulse Oximetry 99 99 Oxygen Delivery Nasal Cannula Oxygen Flow Rate 2 Fraction of Inspired Oxygen 07/19/25 20:00 07/19/25 20:00 07/19/25 20:52 Temperature 36.8 C Pulse Rate 105 H 105 H 100 Respiratory Rate 24 H 20 16 Blood Pressure 141/120 H Pulse Oximetry 91 Oxygen Delivery Oxygen Flow Rate Fraction of Inspired Oxygen 07/19/25 20:52 07/19/25 21:00 07/19/25 21:00 Temperature Pulse Rate 111 H 101 H 101 H Respiratory Rate 20 22 H Blood Pressure 146/107 H Pulse Oximetry 100 95 Oxygen Delivery BiPAP Oxygen Flow Rate Fraction of Inspired Oxygen 07/19/25 22:00 07/19/25 22:00 07/19/25 22:00 Temperature Pulse Rate 91 91 91 Respiratory Rate 19 19 Blood Pressure 150/90 H Pulse Oximetry 96 Oxygen Delivery Oxygen Flow Rate Fraction of Inspired Oxygen 07/19/25 22:38 07/19/25 23:00 07/19/25 23:33 Temperature Pulse Rate 111 H 93 101 H Respiratory Rate 18 18 20 Blood Pressure 148/117 H Pulse Oximetry 100 99 Oxygen Delivery Nasal Cannula Oxygen Flow Rate 0.5 Fraction of Inspired Oxygen 07/19/25 23:33 07/19/25 23:52 07/20/25 00:00 Temperature Pulse Rate 101 H 93 94 Respiratory Rate 20 18 Blood Pressure Pulse Oximetry 99 Oxygen Delivery Nasal Cannula Oxygen Flow Rate 2 Fraction of Inspired Oxygen 07/20/25 00:00 07/20/25 00:01 07/20/25 00:10 Temperature 36.7 C Pulse Rate 94 94 94 Respiratory Rate 18 18 Blood Pressure 150/106 H Pulse Oximetry 96 Oxygen Delivery BiPAP Oxygen Flow Rate Fraction of Inspired Oxygen 07/20/25 01:00 07/20/25 01:30 07/20/25 02:00 Temperature Pulse Rate 88 92 Respiratory Rate Blood Pressure 137/112 H Pulse Oximetry 95 Oxygen Delivery Nasal Cannula Oxygen Flow Rate 2 Fraction of Inspired Oxygen 07/20/25 02:00 07/20/25 02:00 07/20/25 03:00 Temperature Pulse Rate 92 91 89 Respiratory Rate 18 19 16 Blood Pressure 149/108 H 147/104 H Pulse Oximetry 95 Oxygen Delivery Oxygen Flow Rate Fraction of Inspired Oxygen 07/20/25 04:00 07/20/25 04:00 07/20/25 04:00 Temperature 36.9 C Pulse Rate 86 98 Respiratory Rate 17 20 Blood Pressure 156/111 H Pulse Oximetry 96 Oxygen Delivery Room Air Oxygen Flow Rate Fraction of Inspired Oxygen 07/20/25 04:00 07/20/25 04:45 07/20/25 04:45 Temperature Pulse Rate 104 H 98 98 Respiratory Rate 20 20 Blood Pressure Pulse Oximetry Oxygen Delivery Oxygen Flow Rate Fraction of Inspired Oxygen 07/20/25 05:00 07/20/25 05:03 07/20/25 05:15 Temperature Pulse Rate 95 94 100 Respiratory Rate 26 H 16 19 Blood Pressure 138/104 H Pulse Oximetry 97 96 Oxygen Delivery Room Air Oxygen Flow Rate Fraction of Inspired Oxygen 21 07/20/25 05:45 07/20/25 06:00 07/20/25 06:00 Temperature Pulse Rate 90 93 93 Respiratory Rate 19 18 Blood Pressure 148/89 H Pulse Oximetry 99 Oxygen Delivery Oxygen Flow Rate Fraction of Inspired Oxygen 07/20/25 06:00 07/20/25 06:15 07/20/25 07:00 Temperature Pulse Rate 93 93 96 Respiratory Rate 18 18 25 H Blood Pressure Pulse Oximetry Oxygen Delivery Oxygen Flow Rate Fraction of Inspired Oxygen 07/20/25 07:00 Temperature 36.9 C Pulse Rate 96 Respiratory Rate 25 H Blood Pressure 157/100 H Pulse Oximetry 100 Oxygen Delivery Oxygen Flow Rate Fraction of Inspired Oxygen Intake/Output Intake/Output: Intake & Output 07/17/25 07/18/25 07/19/25 07/20/25 23:59 23:59 23:59 23:59 Intake Total 2791.0 2448.0 1585.8 228.6 Output Total 810 1755 2590 1275 Balance 1981.0 693.0 -1004.2 -1046.4 Meds/Results Medications: Active Medications Generic Name Dose Route Start Last Admin Trade Name Freq PRN Reason Stop Dose Admin Al Hydrox/Mg Hydrox/Simethicone 30 ml 07/19/25 21:05 07/19/25 21:41 Mag Hydrox/Al Hydrox/Simeth 30 Ml Udc PO 30 ml Q6H PRN Administration Indigestion Albuterol/Ipratropium 3 ml 07/16/25 08:21 07/19/25 23:48 Ipratropium 0.5 Mg/Albuterol Sulfate 2.5 Mg (Base) Ampul.Neb 3 Ml INHALATION 3 ml Q6HRT PRN Administration Wheezing Dextrose 12.5 gm 07/16/25 08:21 Dextrose 50% 25 Gm/50 Ml Syringe IV PUSH PRN PRN Hypoglycemia Protocol Diazepam 5 mg 07/20/25 08:06 Diazepam Inj (*Crx) 10 Mg/2 Ml Syringe IV PUSH Q2H PRN CIWA 11-15 Diazepam 10 mg 07/20/25 08:06 Diazepam Inj (*Crx) 10 Mg/2 Ml Syringe IV PUSH Q1H PRN CIWA > 15 Diltiazem HCl 30 mg 07/19/25 18:00 07/20/25 05:58 Diltiazem Hcl 30 Mg Tablet PO 30 mg Q6HR MIGUEL A Administration Enoxaparin Sodium 65 mg 07/16/25 09:00 07/20/25 09:26 Enoxaparin 80 Mg/0.8 Ml Syringe SUB-Q 65 mg Q12HR MIGUEL A Administration Folic Acid 1 mg 07/20/25 09:00 07/20/25 09:27 Folic Acid 1 Mg Tablet PO 1 mg DAILY MIGUEL A Administration Glucagon 1 mg 07/16/25 08:21 Glucagon For Inj 1 Mg Vial IM PRN PRN Hypoglycemia Protocol Glucose 15 gm 07/16/25 08:21 Glucose Oral Gel 15 Gm Of Glucse In 37.5 Gm Tube PO PRN PRN Hypoglycemia Protocol Dextrose 1,000 mls @ 100 mls/hr 07/16/25 08:21 Dextrose 5% 1,000 Ml IVPB PRN PRN Hypoglycemia Protocol Meropenem 1 gm/ Sodium 100 mls @ 200 mls/hr 07/20/25 06:00 07/20/25 06:40 Chloride IVPB Infused Q8H MIGUEL A Infusion Insulin Aspart 2 - 5 units 07/20/25 12:00 Insulin Aspart (*Bkc) 100 Units/Ml SUB-Q TIDWM [facility] Protocol Insulin Aspart 1 - 2 units 07/20/25 21:00 Insulin Aspart (*Bkc) 100 Units/Ml SUB-Q HS MIGUEL A Protocol Labetalol HCl 20 mg 07/19/25 13:07 Labetalol Hcl Inj 100 Mg/20 Ml Vial IV PUSH Q4H PRN SBP > 160 and HR> 60 -1st choice Lorazepam 1 mg 07/20/25 08:04 07/20/25 09:28 Lorazepam (*Crx) 1 Mg Tablet PO 1 mg Q4H PRN Administration CIWA Score 8-10 Melatonin 5 mg 07/20/25 21:00 Melatonin 5 Mg Tablet PO HS MIGUEL A Methylprednisolone Sodium Succinate 60 mg 07/19/25 09:00 07/20/25 09:27 Methylprednisolone Sod Succ 125 Mg Vial IV PUSH 60 mg QAM MIGUEL A Administration Metoprolol Tartrate 5 mg 07/19/25 13:07 Metoprolol Tartrate Inj 5 Mg/5 Ml Vial IV PUSH Q2H PRN Heart rate more than 120 Multi-Ingred Cream/Lotion/Oil/Oint 1 applic 07/16/25 21:00 07/20/25 09:27 Mineral Oil/White Petrolatum Ointment EACH EYE Not Given Q12HR MIGUEL A Pantoprazole Sodium 40 mg 07/16/25 09:00 07/20/25 09:27 Pantoprazole Sodium Iv 40 Mg Vial IV PUSH 40 mg QAM MIGUEL A Administration Sodium Chloride 10 ml 07/17/25 14:00 07/20/25 05:58 Central Line Flush IV PUSH 10 ml Q8HR MIGUEL A Administration Sodium Chloride 20 ml 07/17/25 06:35 Central Line Flush IV PUSH PRN PRN after blood draws Thiamine HCl 100 mg 07/20/25 09:00 07/20/25 09:28 Thiamine Hcl 100 Mg Tablet PO 100 mg QAM MIGUEL A Administration Radiology Results: ITS Impressions Chest CTA 07/16/25 08:43 IMPRESSION: 1. No pulmonary embolus. 2. Moderate-sized left pneumothorax. 3. Mild pulmonary edema. 4. Left lung upper lobe nodules, which may be infection or less likely metastatic disease. 5. Moderate emphysema. Chest X-Ray 07/20/25 08:43 IMPRESSION: 1. No change or acute cardiopulmonary findings given portable technique. Labs Labs: Laboratory Results - last 24 hr 07/19/25 07/19/25 07/19/25 10:40 11:06 17:10 WBC RBC Hgb Hct MCV MCH MCHC RDW Plt Count MPV Puncture Site Not Reportable ABG pH 7.482 H ABG pCO2 36.0 ABG pO2 89.0 ABG PO2/FiO2 Ratio 3.56 ABG HCO3 26.3 H ABG O2 Saturation 97.4 ABG O2 Content 18.6 ABG Base Excess 3.0 A-a Gradient 46.5 Oxyhemoglobin 96.1 Carboxyhemoglobin Methemoglobin Reduced Hemoglobin Total Hemoglobin 13.7 O2 Delivery Device Ventilator O2 Liters/Min Not Reportable Minute Volume Not Reportable Vent Rate Not Reportable Vent Mode Spontaneous FiO2 25 Tidal Volume Not Reportable PEEP 5 Peak Inspir Pressure Not Reportable Pressure Support 8 Sodium Potassium Chloride Carbon Dioxide Anion Gap BUN Creatinine Estim Creat Clear Calc Estimated GFR Glucose POC Capillary Glucose 102 71 Calcium Phosphorus Magnesium Total Bilirubin AST ALT Alkaline Phosphatase Total Protein Albumin 07/19/25 07/19/25 07/20/25 18:04 23:36 04:35 WBC RBC Hgb Hct MCV MCH MCHC RDW Plt Count MPV Puncture Site Right radial ABG pH 7.526 H* ABG pCO2 33.7 L ABG pO2 66.3 L ABG PO2/FiO2 Ratio 2.88 ABG HCO3 27.3 H ABG O2 Saturation 95.1 ABG O2 Content 19.3 ABG Base Excess 4.8 A-a Gradient 57.5 Oxyhemoglobin 92.9 Carboxyhemoglobin 1.1 Methemoglobin 0.1 Reduced Hemoglobin 5.9 H Total Hemoglobin 14.8 O2 Delivery Device Nasal cannula O2 Liters/Min 0.5 Minute Volume Vent Rate Vent Mode FiO2 23 Tidal Volume PEEP Peak Inspir Pressure Pressure Support Sodium Potassium Chloride Carbon Dioxide Anion Gap BUN Creatinine Estim Creat Clear Calc Estimated GFR Glucose POC Capillary Glucose 98 80 Calcium Phosphorus Magnesium Total Bilirubin AST ALT Alkaline Phosphatase Total Protein Albumin 07/20/25 04:41 WBC 10.2 H RBC 4.61 Hgb 13.7 L Hct 40.5 L MCV 87.9 MCH 29.7 MCHC 33.8 RDW 16.1 H Plt Count 153 MPV 9.9 Puncture Site ABG pH ABG pCO2 ABG pO2 ABG PO2/FiO2 Ratio ABG HCO3 ABG O2 Saturation ABG O2 Content ABG Base Excess A-a Gradient Oxyhemoglobin Carboxyhemoglobin Methemoglobin Reduced Hemoglobin Total Hemoglobin O2 Delivery Device O2 Liters/Min Minute Volume Vent Rate Vent Mode FiO2 Tidal Volume PEEP Peak Inspir Pressure Pressure Support Sodium 129 L Potassium 4.0 Chloride 99 Carbon Dioxide 27 Anion Gap 3 L BUN 36 H Creatinine 0.72 Estim Creat Clear Calc 77 Estimated GFR > 60 Glucose 86 POC Capillary Glucose Calcium 7.9 L Phosphorus 3.5 Magnesium 2.0 Total Bilirubin 0.7 AST 32 ALT 28 Alkaline Phosphatase 49 Total Protein 6.2 L Albumin 3.2 L Quality VTE Prophylaxis VTE prophylaxis: pharmacologic ordered
--- NOTE | 2025-07-20 11:00 | PCFNICU ---
ICU Rounding Note: Pt current nutrition is Regular. Nutrition recommendation: Glucerna shakes TID Last recorded weight is 61.9 kg, down from 65.5 kg on admit. Bowel Motility: No BM reported. Labs Reviewed: BUN 36, Hct 40.5, Hgb 13.7, Na 129 Meds Noted: Thiamine, Folic Acid, Solumedrol Skin: WNL Additional Notes: Patient extubated. Diet order has been advanced to Regular diet. Recommending oral diet supplements for additional 240 kcal and 10 gm protein. Agree with diet orders. Following daily in ICU rounds. Monitoring meds, weights, labs, diet orders, skin every 3 days.
[2025-07-20] MEDS: ONDANSETRON INJ 4 MG/2 ML VIAL (11:22)
[2025-07-20] MEDS: diazePAM INJ (*CRX) 10 MG/2 ML SYRINGE IV PUSH (11:23)
[2025-07-20] MEDS: NITROFURANTOIN MONOHYD MACROCR 100 MG CAP PO ×2 (12:24→20:57)
--- NOTE | 2025-07-20 12:46 | P.PNGS_ITS ---
Progress Note: A&P Assessment and Plan (1) Pneumothorax, left: Code(s): J93.9 - Pneumothorax, unspecified Status: Acute Assessment and Plan: * Patient extubated yesterday and is oxygenating well on 2 liters nasal cannula, and is wearing a BiPAP at night. Chest tube remains in good position with no air leak. CXR showed no pneumothorax this morning. * Will keep chest tube to suction today. Continue to monitor with serial CXR daily, exam and labs. (2) Respiratory failure with hypoxia and hypercapnia: Qualifiers: Chronicity: acute Qualified Code(s): J96.01 - Acute respiratory failure with hypoxia; J96.02 - Acute respiratory failure with hypercapnia Code(s): J96.91 - Respiratory failure, unspecified with hypoxia; J96.92 - Respiratory failure, unspecified with hypercapnia Status: Acute (3) COPD (chronic obstructive pulmonary disease): Qualifiers: COPD type: emphysema Emphysema type: unspecified Qualified Code(s): J43.9 - Emphysema, unspecified Code(s): J44.9 - Chronic obstructive pulmonary disease, unspecified Status: Chronic (4) Sepsis: Qualifiers: Sepsis type: sepsis due to unspecified organism Sepsis acute organ dysfunction status: without acute organ dysfunction Qualified Code(s): A41.9 - Sepsis, unspecified organism Code(s): A41.9 - Sepsis, unspecified organism Status: Acute (5) Atrial fibrillation with rapid ventricular response: Code(s): I48.91 - Unspecified atrial fibrillation Status: Acute (6) Polysubstance abuse: Code(s): F19.10 - Other psychoactive substance abuse, uncomplicated Status: Chronic Plan I have discussed the patient's case and plan of care with Dr. Yen. Subjective Subjective Date/Time Seen: 07/20/25 12:46 Patient reports: no new complaints Interval history: Patient extubated yesterday and has had stable O2 saturations on 2 liters nasal cannula overnight. Driver Salesman at the bedside and had wanted the patient on BiPAP overnight. The patient cannot recall how long he wore the BiPAP or if he had issues with tolerating. Although, in his chart it appears he had it on twice throughout the night. He reports having pain at his chest tube site and feels like it is hard to catch his breath. Although he appears comfortable. The chest tube was clamped this morning around 8:30 am and is currently off suction. Exam Const: General: comfortable and no acute distress Orientation/consciousness: confusion Chest: Other: Left lateral chest tube in place. No air leak. Minimal serosanguineous drainage in canister Objective Data Vital Signs Vital Signs: Vital Signs - 24 hr 07/19/25 13:00 07/19/25 13:00 07/19/25 14:00 Temperature Pulse Rate 96 96 101 H Pulse Rate [Bilateral Pedal (Dorsalis Pedis) Palpation] Respiratory Rate 22 H 22 H 23 H Blood Pressure 129/95 H 153/103 H Pulse Oximetry 97 97 Oxygen Delivery Oxygen Flow Rate Fraction of Inspired Oxygen 07/19/25 14:00 07/19/25 14:00 07/19/25 14:32 Temperature Pulse Rate 101 H 101 H 104 H Pulse Rate [Bilateral Pedal (Dorsalis Pedis) Palpation] Respiratory Rate 23 H 22 H Blood Pressure Pulse Oximetry 95 Oxygen Delivery Nasal Cannula Oxygen Flow Rate 2 Fraction of Inspired Oxygen 07/19/25 15:00 07/19/25 16:00 07/19/25 16:00 Temperature Pulse Rate 105 H 109 H 109 H Pulse Rate [Bilateral Pedal (Dorsalis Pedis) Palpation] Respiratory Rate 22 H 25 H Blood Pressure 138/96 H Pulse Oximetry 94 Oxygen Delivery Oxygen Flow Rate Fraction of Inspired Oxygen 07/19/25 16:35 07/19/25 16:38 07/19/25 17:00 Temperature 98.1 F Pulse Rate 98 107 H Pulse Rate [Bilateral Pedal (Dorsalis Pedis) Palpation] Respiratory Rate 23 H 22 H Blood Pressure 129/103 H 149/101 H Pulse Oximetry 96 96 95 Oxygen Delivery Nasal Cannula Oxygen Flow Rate 2 Fraction of Inspired Oxygen 07/19/25 18:00 07/19/25 18:00 07/19/25 18:25 Temperature Pulse Rate 99 94 106 H Pulse Rate [Bilateral Pedal (Dorsalis Pedis) Palpation] Respiratory Rate 20 14 Blood Pressure Pulse Oximetry Oxygen Delivery Oxygen Flow Rate Fraction of Inspired Oxygen 07/19/25 18:25 07/19/25 18:30 07/19/25 19:00 Temperature Pulse Rate 106 H 107 H 108 H Pulse Rate [Bilateral Pedal (Dorsalis Pedis) Palpation] Respiratory Rate 14 20 20 Blood Pressure 147/106 H 138/107 H Pulse Oximetry 98 99 Oxygen Delivery Oxygen Flow Rate Fraction of Inspired Oxygen 07/19/25 20:00 07/19/25 20:00 07/19/25 20:00 Temperature 98.3 F Pulse Rate 100 105 H 105 H Pulse Rate [Bilateral Pedal (Dorsalis Pedis) Palpation] Respiratory Rate 16 24 H Blood Pressure 141/120 H Pulse Oximetry 99 91 Oxygen Delivery Nasal Cannula Oxygen Flow Rate 2 Fraction of Inspired Oxygen 07/19/25 20:00 07/19/25 20:52 07/19/25 20:52 Temperature Pulse Rate 105 H 100 111 H Pulse Rate [Bilateral Pedal (Dorsalis Pedis) Palpation] Respiratory Rate 20 16 Blood Pressure Pulse Oximetry 100 Oxygen Delivery BiPAP Oxygen Flow Rate Fraction of Inspired Oxygen 07/19/25 21:00 07/19/25 21:00 07/19/25 22:00 Temperature Pulse Rate 101 H 101 H 91 Pulse Rate [Bilateral Pedal (Dorsalis Pedis) Palpation] Respiratory Rate 20 22 H 19 Blood Pressure 146/107 H Pulse Oximetry 95 Oxygen Delivery Oxygen Flow Rate Fraction of Inspired Oxygen 07/19/25 22:00 07/19/25 22:00 07/19/25 22:38 Temperature Pulse Rate 91 91 111 H Pulse Rate [Bilateral Pedal (Dorsalis Pedis) Palpation] Respiratory Rate 19 18 Blood Pressure 150/90 H Pulse Oximetry 96 100 Oxygen Delivery Nasal Cannula Oxygen Flow Rate 0.5 Fraction of Inspired Oxygen 07/19/25 23:00 07/19/25 23:33 07/19/25 23:33 Temperature Pulse Rate 93 101 H 101 H Pulse Rate [Bilateral Pedal (Dorsalis Pedis) Palpation] Respiratory Rate 18 20 20 Blood Pressure 148/117 H Pulse Oximetry 99 Oxygen Delivery Oxygen Flow Rate Fraction of Inspired Oxygen 07/19/25 23:52 07/20/25 00:00 07/20/25 00:00 Temperature 98.1 F Pulse Rate 93 94 94 Pulse Rate [Bilateral Pedal (Dorsalis Pedis) Palpation] Respiratory Rate 18 18 Blood Pressure 150/106 H Pulse Oximetry 99 96 Oxygen Delivery Nasal Cannula Oxygen Flow Rate 2 Fraction of Inspired Oxygen 07/20/25 00:01 07/20/25 00:10 07/20/25 01:00 Temperature Pulse Rate 94 94 88 Pulse Rate [Bilateral Pedal (Dorsalis Pedis) Palpation] Respiratory Rate 18 Blood Pressure 137/112 H Pulse Oximetry Oxygen Delivery BiPAP Oxygen Flow Rate Fraction of Inspired Oxygen 07/20/25 01:30 07/20/25 02:00 07/20/25 02:00 Temperature Pulse Rate 92 92 Pulse Rate [Bilateral Pedal (Dorsalis Pedis) Palpation] Respiratory Rate 18 Blood Pressure 149/108 H Pulse Oximetry 95 95 Oxygen Delivery Nasal Cannula Oxygen Flow Rate 2 Fraction of Inspired Oxygen 07/20/25 02:00 07/20/25 03:00 07/20/25 04:00 Temperature Pulse Rate 91 89 86 Pulse Rate [Bilateral Pedal (Dorsalis Pedis) Palpation] Respiratory Rate 19 16 17 Blood Pressure 147/104 H Pulse Oximetry Oxygen Delivery Oxygen Flow Rate Fraction of Inspired Oxygen 07/20/25 04:00 07/20/25 04:00 07/20/25 04:00 Temperature 98.4 F Pulse Rate 98 104 H Pulse Rate [Bilateral Pedal (Dorsalis Pedis) Palpation] Respiratory Rate 20 Blood Pressure 156/111 H Pulse Oximetry 96 Oxygen Delivery Room Air Oxygen Flow Rate Fraction of Inspired Oxygen 07/20/25 04:45 07/20/25 04:45 07/20/25 05:00 Temperature Pulse Rate 98 98 95 Pulse Rate [Bilateral Pedal (Dorsalis Pedis) Palpation] Respiratory Rate 20 20 26 H Blood Pressure 138/104 H Pulse Oximetry 97 Oxygen Delivery Oxygen Flow Rate Fraction of Inspired Oxygen 07/20/25 05:03 07/20/25 05:15 07/20/25 05:45 Temperature Pulse Rate 94 100 90 Pulse Rate [Bilateral Pedal (Dorsalis Pedis) Palpation] Respiratory Rate 16 19 19 Blood Pressure Pulse Oximetry 96 Oxygen Delivery Room Air Oxygen Flow Rate Fraction of Inspired Oxygen 21 07/20/25 06:00 07/20/25 06:00 07/20/25 06:00 Temperature Pulse Rate 93 93 93 Pulse Rate [Bilateral Pedal (Dorsalis Pedis) Palpation] Respiratory Rate 18 18 Blood Pressure 148/89 H Pulse Oximetry 99 Oxygen Delivery Oxygen Flow Rate Fraction of Inspired Oxygen 07/20/25 06:15 07/20/25 07:00 07/20/25 07:00 Temperature 98.4 F Pulse Rate 93 96 96 Pulse Rate [Bilateral Pedal (Dorsalis Pedis) Palpation] Respiratory Rate 18 25 H 25 H Blood Pressure 157/100 H Pulse Oximetry 100 Oxygen Delivery Oxygen Flow Rate Fraction of Inspired Oxygen 07/20/25 08:00 07/20/25 08:00 07/20/25 08:00 Temperature 98.4 F Pulse Rate 99 99 99 Pulse Rate [Bilateral Pedal (Dorsalis Pedis) Palpation] Respiratory Rate 28 H 28 H Blood Pressure 169/104 H Pulse Oximetry 96 96 Oxygen Delivery Room Air Oxygen Flow Rate Fraction of Inspired Oxygen 21 07/20/25 08:04 07/20/25 09:00 07/20/25 10:00 Temperature 98.3 F Pulse Rate 102 H 102 H Pulse Rate [Bilateral Pedal (Dorsalis Pedis) Palpation] 118 H Respiratory Rate 27 H Blood Pressure 160/108 H Pulse Oximetry 96 Oxygen Delivery Oxygen Flow Rate Fraction of Inspired Oxygen 07/20/25 10:00 07/20/25 11:00 07/20/25 12:00 Temperature Pulse Rate 89 122 H Pulse Rate [Bilateral Pedal (Dorsalis Pedis) Palpation] 118 H Respiratory Rate 26 H 27 H Blood Pressure 173/124 H 170/108 H 170/108 H Pulse Oximetry 97 98 Oxygen Delivery Oxygen Flow Rate Fraction of Inspired Oxygen 07/20/25 12:00 07/20/25 12:00 07/20/25 12:00 Temperature 98.3 F Pulse Rate 122 H 122 H 117 H Pulse Rate [Bilateral Pedal (Dorsalis Pedis) Palpation] Respiratory Rate 27 H 29 H Blood Pressure 170/91 H Pulse Oximetry 98 95 Oxygen Delivery Room Air Oxygen Flow Rate Fraction of Inspired Oxygen 21 07/20/25 12:25 Temperature Pulse Rate 114 H Pulse Rate [Bilateral Pedal (Dorsalis Pedis) Palpation] Respiratory Rate Blood Pressure Pulse Oximetry Oxygen Delivery Oxygen Flow Rate Fraction of Inspired Oxygen Intake/Output Intake/Output: Intake & Output 07/17/25 07/18/25 07/19/25 07/20/25 23:59 23:59 23:59 23:59 Intake Total 2791.0 2448.0 1585.8 228.6 Output Total 810 1755 2590 1275 Balance 1981.0 693.0 -1004.2 -1046.4 Meds/Results Medications: Active Medications Generic Name Dose Route Start Last Admin Trade Name Freq PRN Reason Stop Dose Admin Al Hydrox/Mg Hydrox/Simethicone 30 ml 07/19/25 21:05 07/19/25 21:41 Mag Hydrox/Al Hydrox/Simeth 30 Ml Udc PO 30 ml Q6H PRN Administration Indigestion Albuterol/Ipratropium 3 ml 07/16/25 08:21 07/19/25 23:48 Ipratropium 0.5 Mg/Albuterol Sulfate 2.5 Mg (Base) Ampul.Neb 3 Ml INHALATION 3 ml Q6HRT PRN Administration Wheezing Dextrose 12.5 gm 07/16/25 08:21 Dextrose 50% 25 Gm/50 Ml Syringe IV PUSH PRN PRN Hypoglycemia Protocol Diazepam 5 mg 07/20/25 08:06 Diazepam Inj (*Crx) 10 Mg/2 Ml Syringe IV PUSH Q2H PRN CIWA 11-15 Diazepam 10 mg 07/20/25 08:06 07/20/25 11:23 Diazepam Inj (*Crx) 10 Mg/2 Ml Syringe IV PUSH 10 mg Q1H PRN Administration CIWA > 15 Diltiazem HCl 60 mg 07/20/25 12:00 07/20/25 12:24 Diltiazem Hcl 60 Mg Tablet PO 60 mg Q6HR MIGUEL A Administration Enoxaparin Sodium 65 mg 07/16/25 09:00 07/20/25 09:26 Enoxaparin 80 Mg/0.8 Ml Syringe SUB-Q 65 mg Q12HR MIGUEL A Administration Folic Acid 1 mg 07/20/25 09:00 07/20/25 09:27 Folic Acid 1 Mg Tablet PO 1 mg DAILY MIGUEL A Administration Glucagon 1 mg 07/16/25 08:21 Glucagon For Inj 1 Mg Vial IM PRN PRN Hypoglycemia Protocol Glucose 15 gm 07/16/25 08:21 Glucose Oral Gel 15 Gm Of Glucse In 37.5 Gm Tube PO PRN PRN Hypoglycemia Protocol Dextrose 1,000 mls @ 100 mls/hr 07/16/25 08:21 Dextrose 5% 1,000 Ml IVPB PRN PRN Hypoglycemia Protocol Insulin Aspart 2 - 5 units 07/20/25 12:00 07/20/25 12:24 Insulin Aspart (*Bkc) 100 Units/Ml SUB-Q Not Given TIDWM [facility] Protocol Insulin Aspart 1 - 2 units 07/20/25 21:00 Insulin Aspart (*Bkc) 100 Units/Ml SUB-Q HS [facility] Protocol Labetalol HCl 20 mg 07/19/25 13:07 07/20/25 12:25 Labetalol Hcl Inj 100 Mg/20 Ml Vial IV PUSH 20 mg Q4H PRN Administration SBP > 160 and HR> 60 -1st choice Lorazepam 1 mg 07/20/25 08:04 07/20/25 09:28 Lorazepam (*Crx) 1 Mg Tablet PO 1 mg Q4H PRN Administration CIWA Score 8-10 Melatonin 5 mg 07/20/25 21:00 Melatonin 5 Mg Tablet PO HS MIGUEL A Methylprednisolone Sodium Succinate 60 mg 07/19/25 09:00 07/20/25 09:27 Methylprednisolone Sod Succ 125 Mg Vial IV PUSH 60 mg QAM MIGUEL A Administration Metoprolol Tartrate 5 mg 07/19/25 13:07 Metoprolol Tartrate Inj 5 Mg/5 Ml Vial IV PUSH Q2H PRN Heart rate more than 120 Multi-Ingred Cream/Lotion/Oil/Oint 1 applic 07/16/25 21:00 07/20/25 09:27 Mineral Oil/White Petrolatum Ointment EACH EYE Not Given Q12HR MIGUEL A Nitrofurantoin Macrocrystals 100 mg 07/20/25 10:05 07/20/25 12:24 Nitrofurantoin Monohyd Macrocr 100 Mg Cap PO 100 mg Q12HR MIGUEL A Administration Ondansetron HCl 4 mg 07/20/25 10:37 Ondansetron Inj 4 Mg/2 Ml Vial IV PUSH Q4H PRN Nausea And Vomiting Pantoprazole Sodium 40 mg 07/16/25 09:00 07/20/25 09:27 Pantoprazole Sodium Iv 40 Mg Vial IV PUSH 40 mg QAM MIGUEL A Administration Sodium Chloride 10 ml 07/17/25 14:00 07/20/25 05:58 Central Line Flush IV PUSH 10 ml Q8HR MIGUEL A Administration Sodium Chloride 20 ml 07/17/25 06:35 Central Line Flush IV PUSH PRN PRN after blood draws Thiamine HCl 100 mg 07/20/25 09:00 07/20/25 09:28 Thiamine Hcl 100 Mg Tablet PO 100 mg QAM MIGUEL A Administration Radiology Results: ITS Impressions Chest CTA 07/16/25 08:43 IMPRESSION: 1. No pulmonary embolus. 2. Moderate-sized left pneumothorax. 3. Mild pulmonary edema. 4. Left lung upper lobe nodules, which may be infection or less likely metastatic disease. 5. Moderate emphysema. Labs Labs: Laboratory Results - last 24 hr 07/19/25 07/19/25 07/19/25 17:10 18:04 23:36 WBC RBC Hgb Hct MCV MCH MCHC RDW Plt Count MPV Puncture Site ABG pH ABG pCO2 ABG pO2 ABG PO2/FiO2 Ratio ABG HCO3 ABG O2 Saturation ABG O2 Content ABG Base Excess A-a Gradient Oxyhemoglobin Carboxyhemoglobin Methemoglobin Reduced Hemoglobin Total Hemoglobin O2 Delivery Device O2 Liters/Min FiO2 Sodium Potassium Chloride Carbon Dioxide Anion Gap BUN Creatinine Estim Creat Clear Calc Estimated GFR Glucose POC Capillary Glucose 71 98 80 Calcium Phosphorus Magnesium Total Bilirubin AST ALT Alkaline Phosphatase Total Protein Albumin 07/20/25 07/20/25 07/20/25 04:35 04:41 12:20 WBC 10.2 H RBC 4.61 Hgb 13.7 L Hct 40.5 L MCV 87.9 MCH 29.7 MCHC 33.8 RDW 16.1 H Plt Count 153 MPV 9.9 Puncture Site Right radial ABG pH 7.526 H* ABG pCO2 33.7 L ABG pO2 66.3 L ABG PO2/FiO2 Ratio 2.88 ABG HCO3 27.3 H ABG O2 Saturation 95.1 ABG O2 Content 19.3 ABG Base Excess 4.8 A-a Gradient 57.5 Oxyhemoglobin 92.9 Carboxyhemoglobin 1.1 Methemoglobin 0.1 Reduced Hemoglobin 5.9 H Total Hemoglobin 14.8 O2 Delivery Device Nasal cannula O2 Liters/Min 0.5 FiO2 23 Sodium 129 L Potassium 4.0 Chloride 99 Carbon Dioxide 27 Anion Gap 3 L BUN 36 H Creatinine 0.72 Estim Creat Clear Calc 77 Estimated GFR > 60 Glucose 86 POC Capillary Glucose 126 H Calcium 7.9 L Phosphorus 3.5 Magnesium 2.0 Total Bilirubin 0.7 AST 32 ALT 28 Alkaline Phosphatase 49 Total Protein 6.2 L Albumin 3.2 L
[2025-07-20] MEDS: diazePAM INJ (*CRX) 10 MG/2 ML SYRINGE 5 MG IV PUSH ×3 (13:00→23:15)
--- NOTE | 2025-07-20 16:51 | P.PNIM_ITS ---
Progress Note: A&P Assessment and Plan (1) Respiratory failure with hypoxia and hypercapnia: Qualifiers: Chronicity: acute Qualified Code(s): J96.01 - Acute respiratory failure with hypoxia; J96.02 - Acute respiratory failure with hypercapnia Code(s): J96.91 - Respiratory failure, unspecified with hypoxia; J96.92 - Respiratory failure, unspecified with hypercapnia Status: Acute Assessment and Plan: Multifactorial acute on chronic respiratory failure secondary to acute exacerbation of COPD, left pneumothorax and AFib with RVR Vent settings reviewed and I have decreased the tidal volume to 420 and rate to 18 Left pneumothorax Status post chest tube placement which is clamped and there is no air leak at this time Empiric Rocephin for COPD exacerbation. No significant consolidation on infiltrates on the CT scan to suggest pneumonia. Negative blood cultures till now Viral panel was negative CT scan and chest x-ray reviewed Sedated with fentanyl and propofol at this time. At [facility] 07/18 sedation holiday was performed to evaluate patient for weaning trial. Patient became tachypneic with respiratory rate in high 30s with increased respiratory distress and work of breathing. Patient was diaphoretic. Sedation holiday was aborted and patient was placed back on sedation. Patient never went on PSV 07/19 weaning trial was done. Patient was extubated. 07/20 patient has done well and is on nasal cannula. Continue BiPAP p.r.n. Continue steroids and bronchodilators (2) Acute exacerbation of chronic obstructive pulmonary disease: Code(s): J44.1 - Chronic obstructive pulmonary disease with (acute) exacerbation Status: Acute Assessment and Plan: See above (3) Pneumothorax, left: Code(s): J93.9 - Pneumothorax, unspecified Status: Acute Assessment and Plan: Patient is now extubated. No air leak. Chest x-ray shows no or residual pneumothorax. (4) Alcohol abuse: Code(s): F10.10 - Alcohol abuse, uncomplicated Status: Acute Assessment and Plan: See op monitoring ordered Continue thiamine and folic acid P.r.n. benzodiazepine ordered as per CIWA score Wean off Precedex drip (5) Hypertension: Code(s): I10 - Essential (primary) hypertension Status: Acute Assessment and Plan: Increase p.o. Cardizem (6) Atrial fibrillation with rapid ventricular response: Code(s): I48.91 - Unspecified atrial fibrillation Status: Acute Assessment and Plan: AFib with RVR. Continue Lovenox. Continue p.o. Cardizem and increase doses 60 q.6 hours EchoSummary 1. Left ventricular chamber dimension is normal. 2. Left ventricular systolic function is normal, estimated at 50-55%. 3. There is moderately increased left ventricular wall thickness. 4. Right ventricular systolic function is normal. 5. Left atrial chamber dimension is severely enlarged. 6. Right atrial chamber dimension is moderately enlarged. 7. There is moderate to severe mitral valve regurgitation. 8. There is mild tricuspid valve regurgitation. 9. Pulmonary hypertension, estimated pulmonary arterial systolic pressure is 45 mmHg. (7) Cardiomyopathy: Qualifiers: Cardiomyopathy type: unspecified Qualified Code(s): I42.9 - Cardiomyopathy, unspecified Code(s): I42.9 - Cardiomyopathy, unspecified Status: Acute Assessment and Plan: Echocardiogram as below (8) Electrolyte abnormality: Code(s): E87.8 - Other disorders of electrolyte and fluid balance, not elsewhere classified Status: Acute Assessment and Plan: Calcium replacement ordered (9) Hyperglycemia: Code(s): R73.9 - Hyperglycemia, unspecified Status: Acute Assessment and Plan: Continue sliding scale insulin. DC Lantus (10) Sepsis: Qualifiers: Sepsis type: sepsis due to unspecified organism Sepsis acute organ dysfunction status: without acute organ dysfunction Qualified Code(s): A41.9 - Sepsis, unspecified organism Code(s): A41.9 - Sepsis, unspecified organism Status: Acute Assessment and Plan: Secondary to UTI Urine culture is growing Klebsiella which is resistant to Rocephin Add Macrobid QQ bleed take Rocephin course for COPD exacerbation today History of Proteus UTI which was sensitive to Rocephin (11) UTI (urinary tract infection): Code(s): N39.0 - Urinary tract infection, site not specified Status: Acute Assessment and Plan: Cultures growing Klebsiella. Klebsiella is resistant to ceftriaxone I will start Macrobid p.o. Plan Patient seen and examined prior to transfer to IMU. DVT prophylaxis -continue Lovenox therapeutic dose Stress ulcer prophylaxis -PPI Nutrition -advance diet Code Status - Full Code Subjective Date/time seen: 07/20/25 16:51 Interval history: 07/20/25 Patient was extubated yesterday after a successful weaning trial. He has done well and is only on nasal cannula. He denies any shortness of breath. He states he has pain at the chest tube site. He also is requesting something to help him sleep at night. He denies any anterior chest pain abdominal pain nausea vomiting diarrhea. All the systems were reviewed and were negative He is on low-dose Precedex infusion. He is in AFib but with controlled ventricular rate. Blood pressure is slightly elevated. Good urine output. Review of Systems Review of Systems: ROS unobtainable: Yes unobtainable due to medical condition and unobtainable due to mental status Exam Const: General: comfortable and no acute distress Orientation/consciousness: confusion Chest: Other: Left lateral chest tube in place. No air leak. Minimal serosanguineous drainage in canister Objective Data Vital Signs Vital Signs: Vital Signs - 24 hr 07/19/25 17:00 07/19/25 18:00 07/19/25 18:00 Temperature Pulse Rate 107 H 99 94 Pulse Rate [Bilateral Pedal (Dorsalis Pedis) Palpation] Respiratory Rate 22 H 20 Blood Pressure 149/101 H Pulse Oximetry 95 Oxygen Delivery Oxygen Flow Rate Fraction of Inspired Oxygen 07/19/25 18:25 07/19/25 18:25 07/19/25 18:30 Temperature Pulse Rate 106 H 106 H 107 H Pulse Rate [Bilateral Pedal (Dorsalis Pedis) Palpation] Respiratory Rate 14 14 20 Blood Pressure 147/106 H Pulse Oximetry 98 Oxygen Delivery Oxygen Flow Rate Fraction of Inspired Oxygen 07/19/25 19:00 07/19/25 20:00 07/19/25 20:00 Temperature Pulse Rate 108 H 100 105 H Pulse Rate [Bilateral Pedal (Dorsalis Pedis) Palpation] Respiratory Rate 20 16 Blood Pressure 138/107 H Pulse Oximetry 99 99 Oxygen Delivery Nasal Cannula Oxygen Flow Rate 2 Fraction of Inspired Oxygen 07/19/25 20:00 07/19/25 20:00 07/19/25 20:52 Temperature 98.3 F Pulse Rate 105 H 105 H 100 Pulse Rate [Bilateral Pedal (Dorsalis Pedis) Palpation] Respiratory Rate 24 H 20 16 Blood Pressure 141/120 H Pulse Oximetry 91 Oxygen Delivery Oxygen Flow Rate Fraction of Inspired Oxygen 07/19/25 20:52 07/19/25 21:00 07/19/25 21:00 Temperature Pulse Rate 111 H 101 H 101 H Pulse Rate [Bilateral Pedal (Dorsalis Pedis) Palpation] Respiratory Rate 20 22 H Blood Pressure 146/107 H Pulse Oximetry 100 95 Oxygen Delivery BiPAP Oxygen Flow Rate Fraction of Inspired Oxygen 07/19/25 22:00 07/19/25 22:00 07/19/25 22:00 Temperature Pulse Rate 91 91 91 Pulse Rate [Bilateral Pedal (Dorsalis Pedis) Palpation] Respiratory Rate 19 19 Blood Pressure 150/90 H Pulse Oximetry 96 Oxygen Delivery Oxygen Flow Rate Fraction of Inspired Oxygen 07/19/25 22:38 07/19/25 23:00 07/19/25 23:33 Temperature Pulse Rate 111 H 93 101 H Pulse Rate [Bilateral Pedal (Dorsalis Pedis) Palpation] Respiratory Rate 18 18 20 Blood Pressure 148/117 H Pulse Oximetry 100 99 Oxygen Delivery Nasal Cannula Oxygen Flow Rate 0.5 Fraction of Inspired Oxygen 07/19/25 23:33 07/19/25 23:52 07/20/25 00:00 Temperature Pulse Rate 101 H 93 94 Pulse Rate [Bilateral Pedal (Dorsalis Pedis) Palpation] Respiratory Rate 20 18 Blood Pressure Pulse Oximetry 99 Oxygen Delivery Nasal Cannula Oxygen Flow Rate 2 Fraction of Inspired Oxygen 07/20/25 00:00 07/20/25 00:01 07/20/25 00:10 Temperature 98.1 F Pulse Rate 94 94 94 Pulse Rate [Bilateral Pedal (Dorsalis Pedis) Palpation] Respiratory Rate 18 18 Blood Pressure 150/106 H Pulse Oximetry 96 Oxygen Delivery BiPAP Oxygen Flow Rate Fraction of Inspired Oxygen 07/20/25 01:00 07/20/25 01:30 07/20/25 02:00 Temperature Pulse Rate 88 92 Pulse Rate [Bilateral Pedal (Dorsalis Pedis) Palpation] Respiratory Rate Blood Pressure 137/112 H Pulse Oximetry 95 Oxygen Delivery Nasal Cannula Oxygen Flow Rate 2 Fraction of Inspired Oxygen 07/20/25 02:00 07/20/25 02:00 07/20/25 03:00 Temperature Pulse Rate 92 91 89 Pulse Rate [Bilateral Pedal (Dorsalis Pedis) Palpation] Respiratory Rate 18 19 16 Blood Pressure 149/108 H 147/104 H Pulse Oximetry 95 Oxygen Delivery Oxygen Flow Rate Fraction of Inspired Oxygen 07/20/25 04:00 07/20/25 04:00 07/20/25 04:00 Temperature 98.4 F Pulse Rate 86 98 Pulse Rate [Bilateral Pedal (Dorsalis Pedis) Palpation] Respiratory Rate 17 20 Blood Pressure 156/111 H Pulse Oximetry 96 Oxygen Delivery Room Air Oxygen Flow Rate Fraction of Inspired Oxygen 07/20/25 04:00 07/20/25 04:45 07/20/25 04:45 Temperature Pulse Rate 104 H 98 98 Pulse Rate [Bilateral Pedal (Dorsalis Pedis) Palpation] Respiratory Rate 20 20 Blood Pressure Pulse Oximetry Oxygen Delivery Oxygen Flow Rate Fraction of Inspired Oxygen 07/20/25 05:00 07/20/25 05:03 07/20/25 05:15 Temperature Pulse Rate 95 94 100 Pulse Rate [Bilateral Pedal (Dorsalis Pedis) Palpation] Respiratory Rate 26 H 16 19 Blood Pressure 138/104 H Pulse Oximetry 97 96 Oxygen Delivery Room Air Oxygen Flow Rate Fraction of Inspired Oxygen 21 07/20/25 05:45 07/20/25 06:00 07/20/25 06:00 Temperature Pulse Rate 90 93 93 Pulse Rate [Bilateral Pedal (Dorsalis Pedis) Palpation] Respiratory Rate 19 18 Blood Pressure 148/89 H Pulse Oximetry 99 Oxygen Delivery Oxygen Flow Rate Fraction of Inspired Oxygen 07/20/25 06:00 07/20/25 06:15 07/20/25 07:00 Temperature Pulse Rate 93 93 96 Pulse Rate [Bilateral Pedal (Dorsalis Pedis) Palpation] Respiratory Rate 18 18 25 H Blood Pressure Pulse Oximetry Oxygen Delivery Oxygen Flow Rate Fraction of Inspired Oxygen 07/20/25 07:00 07/20/25 08:00 07/20/25 08:00 Temperature 98.4 F Pulse Rate 96 99 99 Pulse Rate [Bilateral Pedal (Dorsalis Pedis) Palpation] Respiratory Rate 25 H 28 H Blood Pressure 157/100 H Pulse Oximetry 100 96 Oxygen Delivery Room Air Oxygen Flow Rate Fraction of Inspired Oxygen 21 07/20/25 08:00 07/20/25 08:04 07/20/25 09:00 Temperature 98.4 F 98.3 F Pulse Rate 99 102 H Pulse Rate [Bilateral Pedal (Dorsalis Pedis) Palpation] 118 H Respiratory Rate 28 H 27 H Blood Pressure 169/104 H 160/108 H Pulse Oximetry 96 96 Oxygen Delivery Oxygen Flow Rate Fraction of Inspired Oxygen 07/20/25 10:00 07/20/25 10:00 07/20/25 11:00 Temperature Pulse Rate 102 H 89 122 H Pulse Rate [Bilateral Pedal (Dorsalis Pedis) Palpation] Respiratory Rate 26 H 27 H Blood Pressure 173/124 H 170/108 H Pulse Oximetry 97 98 Oxygen Delivery Oxygen Flow Rate Fraction of Inspired Oxygen 07/20/25 12:00 07/20/25 12:00 07/20/25 12:00 Temperature Pulse Rate 122 H 122 H Pulse Rate [Bilateral Pedal (Dorsalis Pedis) Palpation] 118 H Respiratory Rate 27 H Blood Pressure 170/108 H Pulse Oximetry 98 Oxygen Delivery Room Air Oxygen Flow Rate Fraction of Inspired Oxygen 21 07/20/25 12:00 07/20/25 12:25 07/20/25 13:00 Temperature 98.3 F 98.3 F Pulse Rate 117 H 114 H 102 H Pulse Rate [Bilateral Pedal (Dorsalis Pedis) Palpation] Respiratory Rate 29 H 27 H Blood Pressure 170/91 H 159/119 H Pulse Oximetry 95 99 Oxygen Delivery Oxygen Flow Rate Fraction of Inspired Oxygen 07/20/25 13:00 07/20/25 14:00 07/20/25 14:00 Temperature 98 F Pulse Rate 106 H 106 H Pulse Rate [Bilateral Pedal (Dorsalis Pedis) Palpation] 122 H Respiratory Rate 25 H Blood Pressure 159/119 H 138/118 H Pulse Oximetry 100 Oxygen Delivery Oxygen Flow Rate Fraction of Inspired Oxygen 07/20/25 15:00 07/20/25 16:00 07/20/25 16:00 Temperature 98.4 F Pulse Rate 102 H 102 H Pulse Rate [Bilateral Pedal (Dorsalis Pedis) Palpation] 103 H Respiratory Rate 33 H 33 H Blood Pressure 143/115 H 143/107 H Pulse Oximetry 98 98 Oxygen Delivery Nasal Cannula Oxygen Flow Rate 0.5 Fraction of Inspired Oxygen 21 07/20/25 16:00 07/20/25 16:00 Temperature 98.4 F Pulse Rate 102 H 102 H Pulse Rate [Bilateral Pedal (Dorsalis Pedis) Palpation] Respiratory Rate 33 H Blood Pressure 166/115 H Pulse Oximetry 98 Oxygen Delivery Oxygen Flow Rate Fraction of Inspired Oxygen Intake/Output Intake/Output: Intake & Output 07/17/25 07/18/25 07/19/25 07/20/25 23:59 23:59 23:59 23:59 Intake Total 2791.0 2448.0 1585.8 228.6 Output Total 810 1755 2590 1275 Balance 1981.0 693.0 -1004.2 -1046.4 Meds/Results Medications: Active Medications Generic Name Dose Route Start Last Admin Trade Name Freq PRN Reason Stop Dose Admin Al Hydrox/Mg Hydrox/Simethicone 30 ml 07/19/25 21:05 07/19/25 21:41 Mag Hydrox/Al Hydrox/Simeth 30 Ml Udc PO 30 ml Q6H PRN Administration Indigestion Albuterol/Ipratropium 3 ml 07/16/25 08:21 07/19/25 23:48 Ipratropium 0.5 Mg/Albuterol Sulfate 2.5 Mg (Base) Ampul.Neb 3 Ml INHALATION 3 ml Q6HRT PRN Administration Wheezing Dextrose 12.5 gm 07/16/25 08:21 Dextrose 50% 25 Gm/50 Ml Syringe IV PUSH PRN PRN Hypoglycemia Protocol Diazepam 5 mg 07/20/25 08:06 07/20/25 15:42 Diazepam Inj (*Crx) 10 Mg/2 Ml Syringe IV PUSH 5 mg Q2H PRN Administration CIWA 11-15 Diazepam 10 mg 07/20/25 08:06 07/20/25 11:23 Diazepam Inj (*Crx) 10 Mg/2 Ml Syringe IV PUSH 10 mg Q1H PRN Administration CIWA > 15 Diltiazem HCl 60 mg 07/20/25 12:00 07/20/25 12:24 Diltiazem Hcl 60 Mg Tablet PO 60 mg Q6HR MIGUEL A Administration Enoxaparin Sodium 65 mg 07/16/25 09:00 07/20/25 09:26 Enoxaparin 80 Mg/0.8 Ml Syringe SUB-Q 65 mg Q12HR MIGUEL A Administration Folic Acid 1 mg 07/20/25 09:00 07/20/25 09:27 Folic Acid 1 Mg Tablet PO 1 mg DAILY MIGUEL A Administration Glucagon 1 mg 07/16/25 08:21 Glucagon For Inj 1 Mg Vial IM PRN PRN Hypoglycemia Protocol Glucose 15 gm 07/16/25 08:21 Glucose Oral Gel 15 Gm Of Glucse In 37.5 Gm Tube PO PRN PRN Hypoglycemia Protocol Dextrose 1,000 mls @ 100 mls/hr 07/16/25 08:21 Dextrose 5% 1,000 Ml IVPB PRN PRN Hypoglycemia Protocol Insulin Aspart 2 - 5 units 07/20/25 12:00 07/20/25 12:24 Insulin Aspart (*Bkc) 100 Units/Ml SUB-Q Not Given TIDWM [facility] Protocol Insulin Aspart 1 - 2 units 07/20/25 21:00 Insulin Aspart (*Bkc) 100 Units/Ml SUB-Q [facility] Protocol Labetalol HCl 20 mg 07/19/25 13:07 07/20/25 12:25 Labetalol Hcl Inj 100 Mg/20 Ml Vial IV PUSH 20 mg Q4H PRN Administration SBP > 160 and HR> 60 -1st choice Lorazepam 1 mg 07/20/25 08:04 07/20/25 09:28 Lorazepam (*Crx) 1 Mg Tablet PO 1 mg Q4H PRN Administration CIWA Score 8-10 Melatonin 5 mg 07/20/25 21:00 Melatonin 5 Mg Tablet PO [facility] Methylprednisolone Sodium Succinate 60 mg 07/19/25 09:00 07/20/25 09:27 Methylprednisolone Sod Succ 125 Mg Vial IV PUSH 60 mg QAM [facility] Administration Metoprolol Tartrate 5 mg 07/19/25 13:07 Metoprolol Tartrate Inj 5 Mg/5 Ml Vial IV PUSH Q2H PRN Heart rate more than 120 Multi-Ingred Cream/Lotion/Oil/Oint 1 applic 07/16/25 21:00 07/20/25 09:27 Mineral Oil/White Petrolatum Ointment EACH EYE Not Given Q12HR [facility] Nitrofurantoin Macrocrystals 100 mg 07/20/25 10:05 07/20/25 12:24 Nitrofurantoin Monohyd Macrocr 100 Mg Cap PO 100 mg Q12HR [facility] Administration Ondansetron HCl 4 mg 07/20/25 10:37 Ondansetron Inj 4 Mg/2 Ml Vial IV PUSH Q4H PRN Nausea And Vomiting Pantoprazole Sodium 40 mg 07/16/25 09:00 07/20/25 09:27 Pantoprazole Sodium Iv 40 Mg Vial IV PUSH 40 mg QAM [facility] Administration Sodium Chloride 10 ml 07/17/25 14:00 07/20/25 13:13 Central Line Flush IV PUSH 10 ml Q8HR [facility] Administration Sodium Chloride 20 ml 07/17/25 06:35 Central Line Flush IV PUSH PRN PRN after blood draws Thiamine HCl 100 mg 07/20/25 09:00 07/20/25 09:28 Thiamine Hcl 100 Mg Tablet PO 100 mg QAM [facility] Administration Radiology Results: ITS Impressions Chest CTA 07/16/25 08:43 IMPRESSION: 1. No pulmonary embolus. 2. Moderate-sized left pneumothorax. 3. Mild pulmonary edema. 4. Left lung upper lobe nodules, which may be infection or less likely metastatic disease. 5. Moderate emphysema. Chest X-Ray 07/20/25 16:29 IMPRESSION: 1: NO ACUTE CARDIOPULMONARY DISEASE. Labs Labs: Laboratory Results - last 24 hr 07/19/25 07/19/25 07/19/25 17:10 18:04 23:36 WBC RBC Hgb Hct MCV MCH MCHC RDW Plt Count MPV Puncture Site ABG pH ABG pCO2 ABG pO2 ABG PO2/FiO2 Ratio ABG HCO3 ABG O2 Saturation ABG O2 Content ABG Base Excess A-a Gradient Oxyhemoglobin Carboxyhemoglobin Methemoglobin Reduced Hemoglobin Total Hemoglobin O2 Delivery Device O2 Liters/Min FiO2 Sodium Potassium Chloride Carbon Dioxide Anion Gap BUN Creatinine Estim Creat Clear Calc Estimated GFR Glucose POC Capillary Glucose 71 98 80 Calcium Phosphorus Magnesium Total Bilirubin AST ALT Alkaline Phosphatase Total Protein Albumin 07/20/25 07/20/25 07/20/25 04:35 04:41 12:20 WBC 10.2 H RBC 4.61 Hgb 13.7 L Hct 40.5 L MCV 87.9 MCH 29.7 MCHC 33.8 RDW 16.1 H Plt Count 153 MPV 9.9 Puncture Site Right radial ABG pH 7.526 H* ABG pCO2 33.7 L ABG pO2 66.3 L ABG PO2/FiO2 Ratio 2.88 ABG HCO3 27.3 H ABG O2 Saturation 95.1 ABG O2 Content 19.3 ABG Base Excess 4.8 A-a Gradient 57.5 Oxyhemoglobin 92.9 Carboxyhemoglobin 1.1 Methemoglobin 0.1 Reduced Hemoglobin 5.9 H Total Hemoglobin 14.8 O2 Delivery Device Nasal cannula O2 Liters/Min 0.5 FiO2 23 Sodium 129 L Potassium 4.0 Chloride 99 Carbon Dioxide 27 Anion Gap 3 L BUN 36 H Creatinine 0.72 Estim Creat Clear Calc 77 Estimated GFR > 60 Glucose 86 POC Capillary Glucose 126 H Calcium 7.9 L Phosphorus 3.5 Magnesium 2.0 Total Bilirubin 0.7 AST 32 ALT 28 Alkaline Phosphatase 49 Total Protein 6.2 L Albumin 3.[address] [facility] Advance Care Plan I have confirmed that the patient's Advanced Care Plan is present, code status is documented, or surrogate decision maker is listed in patient medical record.: Yes Medication Reconciliation I have utilized all available resources to obtain, update and review the patients current medications (includes all prescriptions, OTC, herbals, cannab is, and nutritional supplements).: Yes
--- NOTE | 2025-07-20 20:16 | PC.NURSE ---
This patient, Javad Gant, was received from ICU-6 on 07/20/25 at 2016. Patient/family oriented to unit policies and routines. Report received from Delmis FIERRO
[2025-07-20] MEDS: MELATONIN 5 MG TABLET PO (20:52)
[2025-07-20] MEDS: MAG HYDROX/AL HYDROX/SIMETH 30 ML UDC PO (23:15)
[2025-07-21] VITALS (16 sets, daily range): BP systolic 144–161; BP diastolic 86–106; PULSE 82–126; RESP 15–26; TEMP 36.6–37.2; O2SAT 94–98
[2025-07-21 05:00] LABS: Alveolar/Arterial O2 Gradient 38.9 mmHg; Carboxyhemoglobin 1.2 % THb (0-2.0); Fractional Inspired Oxygen 22 %; HCO3 ABG 24.5 mEq/l (22.0-26.0); Methemoglobin ABG 0.2 %THb (0-1.5); Oxygen Content ABG 21.4 %vol (16.0-22.0); Oxygen Saturation ABG 96.7 % (95.0-100.0); PCO2 ABG 32.3 mmHg (35.0-45.0); PO2 ABG 79.4 mmHg (80.0-100.0); PO2 FiO2 Ratio Arterial Blood 3.61 %; Reduced Hemoglobin 3.9 %THb (0-5.0)
[2025-07-21 05:06] LABS: Liters per Minute 0.5 LPM; Modified Allen's Test Pass; Site Drawn LEFT RADIAL
[2025-07-21] MEDS: CENTRAL LINE FLUSH 10 ML IV PUSH (05:14)
[2025-07-21 05:26] LABS: Hematocrit 44.3 % (42.0-52.0); Hemoglobin 14.9 g/dL (14.0-18.0); Mean Corpuscular HGB Conc 33.6 g/dl (32-36); Mean Corpuscular Hemoglobin 29.6 pg (26-34); Mean Corpuscular Volume 88.1 fl (80-100); Platelet Count Result 230 k/mm3 (150-375); Red Blood Count 5.03 M/mm3 (4.6-6.20); White Blood Count 16.1 K/mm3 (4.5-10.0)
[2025-07-21 05:50] LABS: Alanine Aminotransferase 35 U/L (6-50); Albumin Level 3.3 g/dL (3.5-5.1); Alkaline Phosphatase 50 U/L (38-126); Anion Gap 3 mmol/L (4-12); Aspartate Amino Transferase 39 U/L (17-59); Bilirubin,Total 1.0 mg/dL (0.2-1.3); Blood Urea Nitrogen 35 mg/dL (9-20); Calcium 7.8 mg/dL (8.4-10.2); Carbon Dioxide 29 mmol/L (22-30); Chloride 96 mmol/L (98-107); Estimated CRCL calculation 75 ml/min; Estimated Glomerular Filt Rate > 60; Glucose 160 mg/dL (65-110); Magnesium 2.2 mg/dL (1.6-2.3); Potassium 4.1 mmol/L (3.4-5.0); Sodium 128 mmol/L (137-145); Total Protein 6.3 g/dL (6.3-8.2)
[2025-07-21] MEDS: diazePAM INJ (*CRX) 10 MG/2 ML SYRINGE IV PUSH (08:29)
[2025-07-21] MEDS: ENOXAPARIN 80 MG/0.8 ML SYRINGE 65 MG SUB-Q ×2 (08:33→20:50)
[2025-07-21] MEDS: PANTOPRAZOLE SODIUM IV 40 MG VIAL IV PUSH (08:34)
[2025-07-21] MEDS: FOLIC ACID 1 MG TABLET PO (08:34)
[2025-07-21] MEDS: THIAMINE HCL 100 MG TABLET PO (08:34)
[2025-07-21] MEDS: NITROFURANTOIN MONOHYD MACROCR 100 MG CAP PO ×2 (09:01→20:52)
--- NOTE | 2025-07-21 11:12 | P.PNGS_ITS ---
Subjective Subjective Date/Time Seen: 07/21/25 11:12 Interval history: Patient extubated two days ago. Downgraded to IMU. Objective Data Vital Signs Vital Signs: Vital Signs - 24 hr 07/20/25 12:00 07/20/25 12:00 07/20/25 12:00 Temperature Pulse Rate 122 H 122 H Pulse Rate [Bilateral Pedal (Dorsalis Pedis) Palpation] 118 H Respiratory Rate 27 H Blood Pressure 170/108 H Pulse Oximetry 98 Oxygen Delivery Room Air Oxygen Flow Rate Fraction of Inspired Oxygen 21 07/20/25 12:00 07/20/25 12:25 07/20/25 13:00 Temperature 98.3 F 98.3 F Pulse Rate 117 H 114 H 102 H Pulse Rate [Bilateral Pedal (Dorsalis Pedis) Palpation] Respiratory Rate 29 H 27 H Blood Pressure 170/91 H 159/119 H Pulse Oximetry 95 99 Oxygen Delivery Oxygen Flow Rate Fraction of Inspired Oxygen 07/20/25 13:00 07/20/25 14:00 07/20/25 14:00 Temperature 98 F Pulse Rate 106 H 106 H Pulse Rate [Bilateral Pedal (Dorsalis Pedis) Palpation] 122 H Respiratory Rate 25 H Blood Pressure 159/119 H 138/118 H Pulse Oximetry 100 Oxygen Delivery Oxygen Flow Rate Fraction of Inspired Oxygen 07/20/25 15:00 07/20/25 16:00 07/20/25 16:00 Temperature 98.4 F Pulse Rate 102 H 102 H Pulse Rate [Bilateral Pedal (Dorsalis Pedis) Palpation] 103 H Respiratory Rate 33 H 33 H Blood Pressure 143/115 H 143/107 H Pulse Oximetry 98 98 Oxygen Delivery Nasal Cannula Oxygen Flow Rate 0.5 Fraction of Inspired Oxygen 21 07/20/25 16:00 07/20/25 16:00 07/20/25 16:18 Temperature 98.4 F Pulse Rate 102 H 102 H 102 H Pulse Rate [Bilateral Pedal (Dorsalis Pedis) Palpation] Respiratory Rate 33 H 18 Blood Pressure 166/115 H Pulse Oximetry 98 96 Oxygen Delivery Nasal Cannula Oxygen Flow Rate 0.5 Fraction of Inspired Oxygen 07/20/25 17:00 07/20/25 17:13 07/20/25 18:00 Temperature Pulse Rate 95 109 H 91 Pulse Rate [Bilateral Pedal (Dorsalis Pedis) Palpation] Respiratory Rate 30 H Blood Pressure 154/111 H Pulse Oximetry 99 Oxygen Delivery Oxygen Flow Rate Fraction of Inspired Oxygen 07/20/25 18:00 07/20/25 20:20 07/20/25 20:27 Temperature 97.9 F Pulse Rate 91 92 Pulse Rate [Bilateral Pedal (Dorsalis Pedis) Palpation] 101 H Respiratory Rate 30 H 30 H Blood Pressure 165/115 H 155/101 H 155/101 H Pulse Oximetry 99 94 Oxygen Delivery Oxygen Flow Rate Fraction of Inspired Oxygen 07/20/25 20:30 07/20/25 20:32 07/20/25 20:53 Temperature Pulse Rate 94 87 Pulse Rate [Bilateral Pedal (Dorsalis Pedis) Palpation] Respiratory Rate Blood Pressure Pulse Oximetry 93 93 Oxygen Delivery Nasal Cannula Nasal Cannula Oxygen Flow Rate 0.5 Fraction of Inspired Oxygen 07/20/25 22:00 07/20/25 23:09 07/20/25 23:15 Temperature 98.0 F Pulse Rate 103 H 106 H Pulse Rate [Bilateral Pedal (Dorsalis Pedis) Palpation] 107 H Respiratory Rate 28 H Blood Pressure 147/109 H 147/109 H Pulse Oximetry 97 Oxygen Delivery Oxygen Flow Rate Fraction of Inspired Oxygen 07/20/25 23:40 07/21/25 00:00 07/21/25 02:00 Temperature Pulse Rate 101 H 96 Pulse Rate [Bilateral Pedal (Dorsalis Pedis) Palpation] Respiratory Rate Blood Pressure Pulse Oximetry 97 Oxygen Delivery Nasal Cannula Oxygen Flow Rate 0.5 Fraction of Inspired Oxygen 07/21/25 04:00 07/21/25 04:00 07/21/25 04:00 Temperature Pulse Rate 88 Pulse Rate [Bilateral Pedal (Dorsalis Pedis) Palpation] 107 H Respiratory Rate Blood Pressure 159/106 H Pulse Oximetry 94 Oxygen Delivery Nasal Cannula Oxygen Flow Rate 0.5 Fraction of Inspired Oxygen 07/21/25 04:18 07/21/25 06:00 07/21/25 07:39 Temperature 98.1 F Pulse Rate 93 110 H Pulse Rate [Bilateral Pedal (Dorsalis Pedis) Palpation] Respiratory Rate 26 H Blood Pressure 159/106 H Pulse Oximetry 94 96 Oxygen Delivery Nasal Cannula Oxygen Flow Rate 0.5 Fraction of Inspired Oxygen 07/21/25 08:00 07/21/25 08:00 07/21/25 08:00 Temperature 98.8 F Pulse Rate 111 H 119 H Pulse Rate [Bilateral Pedal (Dorsalis Pedis) Palpation] 108 H Respiratory Rate 25 H Blood Pressure 153/105 H Pulse Oximetry 96 Oxygen Delivery Oxygen Flow Rate Fraction of Inspired Oxygen 07/21/25 09:04 07/21/25 10:00 Temperature Pulse Rate 104 H Pulse Rate [Bilateral Pedal (Dorsalis Pedis) Palpation] Respiratory Rate Blood Pressure 146/89 H Pulse Oximetry Oxygen Delivery Oxygen Flow Rate Fraction of Inspired Oxygen Intake/Output Intake/Output: Intake & Output 07/18/25 07/19/25 07/20/25 07/21/25 23:59 23:59 23:59 23:59 Intake Total 2448.0 1585.8 328.6 888 Output Total 1755 2590 2225 950 Balance 693.0 -1004.2 -1896.4 -62 Meds/Results Medications: Active Medications Generic Name Dose Route Start Last Admin Trade Name Freq PRN Reason Stop Dose Admin Al Hydrox/Mg Hydrox/Simethicone 30 ml 07/19/25 21:05 07/20/25 23:15 Mag Hydrox/Al Hydrox/Simeth 30 Ml Udc PO 30 ml Q6H PRN Administration Indigestion Albuterol/Ipratropium 3 ml 07/16/25 08:21 07/19/25 23:48 Ipratropium 0.5 Mg/Albuterol Sulfate 2.5 Mg (Base) Ampul.Neb 3 Ml INHALATION 3 ml Q6HRT PRN Administration Wheezing Dextrose 12.5 gm 07/16/25 08:21 Dextrose 50% 25 Gm/50 Ml Syringe IV PUSH PRN PRN Hypoglycemia Protocol Diazepam 5 mg 07/20/25 08:06 07/20/25 23:15 Diazepam Inj (*Crx) 10 Mg/2 Ml Syringe IV PUSH 5 mg Q2H PRN Administration CIWA 11-15 Diazepam 10 mg 07/20/25 08:06 07/21/25 08:29 Diazepam Inj (*Crx) 10 Mg/2 Ml Syringe IV PUSH 10 mg Q1H PRN Administration CIWA > 15 Diltiazem HCl 60 mg 07/20/25 12:00 07/21/25 05:14 Diltiazem Hcl 60 Mg Tablet PO 60 mg Q6HR MIGUEL A Administration Enoxaparin Sodium 65 mg 07/16/25 09:00 07/21/25 08:33 Enoxaparin 80 Mg/0.8 Ml Syringe SUB-Q 65 mg Q12HR MIGUEL A Administration Folic Acid 1 mg 07/20/25 09:00 07/21/25 08:34 Folic Acid 1 Mg Tablet PO 1 mg DAILY MIGUEL A Administration Glucagon 1 mg 07/16/25 08:21 Glucagon For Inj 1 Mg Vial IM PRN PRN Hypoglycemia Protocol Glucose 15 gm 07/16/25 08:21 Glucose Oral Gel 15 Gm Of Glucse In 37.5 Gm Tube PO PRN PRN Hypoglycemia Protocol Dextrose 1,000 mls @ 100 mls/hr 07/16/25 08:21 Dextrose 5% 1,000 Ml IVPB PRN PRN Hypoglycemia Protocol Insulin Aspart 2 - 5 units 07/20/25 12:00 07/21/25 08:34 Insulin Aspart (*Bkc) 100 Units/Ml SUB-Q Not Given TIDWM [facility] Protocol Insulin Aspart 1 - 2 units 07/20/25 21:00 07/20/25 20:49 Insulin Aspart (*Bkc) 100 Units/Ml SUB-Q Not Given HS [facility] Protocol Labetalol HCl 20 mg 07/19/25 13:07 07/20/25 17:13 Labetalol Hcl Inj 100 Mg/20 Ml Vial IV PUSH 20 mg Q4H PRN Administration SBP > 160 and HR> 60 -1st choice Lorazepam 1 mg 07/20/25 08:04 07/20/25 17:13 Lorazepam (*Crx) 1 Mg Tablet PO 1 mg Q4H PRN Administration CIWA Score 8-10 Melatonin 5 mg 07/20/25 21:00 07/20/25 20:52 Melatonin 5 Mg Tablet PO 5 mg HS MIGUEL A Administration Methylprednisolone Sodium Succinate 60 mg 07/19/25 09:00 07/21/25 08:32 Methylprednisolone Sod Succ 125 Mg Vial IV PUSH 60 mg QAM MIGUEL A Administration Metoprolol Tartrate 5 mg 07/19/25 13:07 Metoprolol Tartrate Inj 5 Mg/5 Ml Vial IV PUSH Q2H PRN Heart rate more than 120 Multi-Ingred Cream/Lotion/Oil/Oint 1 applic 07/16/25 21:00 07/21/25 08:34 Mineral Oil/White Petrolatum Ointment EACH EYE Not Given Q12HR [facility] Nitrofurantoin Macrocrystals 100 mg 07/20/25 10:05 07/21/25 09:01 Nitrofurantoin Monohyd Macrocr 100 Mg Cap PO 100 mg Q12HR MIGUEL A Administration Ondansetron HCl 4 mg 07/20/25 10:37 Ondansetron Inj 4 Mg/2 Ml Vial IV PUSH Q4H PRN Nausea And Vomiting Pantoprazole Sodium 40 mg 07/16/25 09:00 07/21/25 08:34 Pantoprazole Sodium Iv 40 Mg Vial IV PUSH 40 mg QAM MIGUEL A Administration Sodium Chloride 10 ml 07/17/25 14:00 07/21/25 05:14 Central Line Flush IV PUSH 10 ml Q8HR MIGUEL A Administration Sodium Chloride 20 ml 07/17/25 06:35 Central Line Flush IV PUSH PRN PRN after blood draws Thiamine HCl 100 mg 07/20/25 09:00 07/21/25 08:34 Thiamine Hcl 100 Mg Tablet PO 100 mg QAM MIGUEL A Administration Radiology Results: ITS Impressions Chest CTA 07/16/25 08:43 IMPRESSION: 1. No pulmonary embolus. 2. Moderate-sized left pneumothorax. 3. Mild pulmonary edema. 4. Left lung upper lobe nodules, which may be infection or less likely metastatic disease. 5. Moderate emphysema. Chest X-Ray 07/21/25 08:20 IMPRESSION: 1. Stable exam compared to yesterday. No pneumothorax seen and left-sided chest tube remains unchanged in position. Labs Labs: Laboratory Results - last 24 hr 07/20/25 07/20/25 07/20/25 12:20 17:09 20:48 WBC RBC Hgb Hct MCV MCH MCHC RDW Plt Count MPV Puncture Site ABG pH ABG pCO2 ABG pO2 ABG PO2/FiO2 Ratio ABG HCO3 ABG O2 Saturation ABG O2 Content ABG Base Excess A-a Gradient Oxyhemoglobin Carboxyhemoglobin Methemoglobin Reduced Hemoglobin Total Hemoglobin O2 Delivery Device O2 Liters/Min FiO2 Sodium Potassium Chloride Carbon Dioxide Anion Gap BUN Creatinine Estim Creat Clear Calc Estimated GFR Glucose POC Capillary Glucose 126 H 137 H 149 H Calcium Phosphorus Magnesium Total Bilirubin AST ALT Alkaline Phosphatase Total Protein Albumin 07/21/25 07/21/25 07/21/25 04:48 05:13 07:07 WBC 16.1 H RBC 5.03 Hgb 14.9 Hct 44.3 MCV 88.1 MCH 29.6 MCHC 33.6 RDW 16.5 H Plt Count 230 D MPV 9.6 Puncture Site Left radial ABG pH 7.497 H ABG pCO2 32.3 L ABG pO2 79.4 L ABG PO2/FiO2 Ratio 3.61 ABG HCO3 24.5 ABG O2 Saturation 96.7 ABG O2 Content 21.4 ABG Base Excess 2.0 A-a Gradient 38.9 Oxyhemoglobin 94.7 Carboxyhemoglobin 1.2 Methemoglobin 0.2 Reduced Hemoglobin 3.9 Total Hemoglobin 16.1 O2 Delivery Device Nasal cannula O2 Liters/Min 0.5 FiO2 22 Sodium 128 L Potassium 4.1 Chloride 96 L Carbon Dioxide 29 Anion Gap 3 L BUN 35 H Creatinine 0.68 L Estim Creat Clear Calc 75 Estimated GFR > 60 Glucose 160 H POC Capillary Glucose 174 H Calcium 7.8 L Phosphorus 2.9 Magnesium 2.2 Total Bilirubin 1.0 AST 39 ALT 35 Alkaline Phosphatase 50 Total Protein 6.3 Albumin 3.3 L
--- NOTE | 2025-07-21 11:14 | PM.PNGS ---
Progress Note: A&P Assessment and Plan (1) Pneumothorax, left: Code(s): J93.9 - Pneumothorax, unspecified Status: Acute Assessment and Plan: Patient extubated and on room air. Left chest tube in good position and lung is fully expanded. Will change left chest tube to water-seal suction and recheck chest x-ray in about an hour. (2) Respiratory failure with hypoxia and hypercapnia: Qualifiers: Chronicity: acute Qualified Code(s): J96.01 - Acute respiratory failure with hypoxia; J96.02 - Acute respiratory failure with hypercapnia Code(s): J96.91 - Respiratory failure, unspecified with hypoxia; J96.92 - Respiratory failure, unspecified with hypercapnia Status: Acute Assessment and Plan: Improved, off mechanical ventilator (3) COPD (chronic obstructive pulmonary disease): Qualifiers: COPD type: emphysema Emphysema type: unspecified Qualified Code(s): J43.9 - Emphysema, unspecified Code(s): J44.9 - Chronic obstructive pulmonary disease, unspecified Status: Chronic (4) Sepsis: Qualifiers: Sepsis type: sepsis due to unspecified organism Sepsis acute organ dysfunction status: without acute organ dysfunction Qualified Code(s): A41.9 - Sepsis, unspecified organism Code(s): A41.9 - Sepsis, unspecified organism Status: Acute (5) Atrial fibrillation with rapid ventricular response: Code(s): I48.91 - Unspecified atrial fibrillation Status: Acute (6) Polysubstance abuse: Code(s): F19.10 - Other psychoactive substance abuse, uncomplicated Status: Chronic Subjective Subjective Date/Time Seen: 07/21/25 11:14 Patient reports: no new complaints and afebrile Interval history: Patient extubated and on room air Review of Systems Review of Systems: All systems reviewed & are unremarkable except as noted in HPI and below (HPI) Exam Const: General: comfortable and awake Chest: Chest palpation & inspection: abnormal inspection of the chest (Left chest tube again noted, no pleural leak) Resp: Effort & Inspection: normal respiratory effort Auscultation: clear to auscultation bilaterally Objective Data Vital Signs Vital Signs: Vital Signs - 24 hr 07/20/25 12:00 07/20/25 12:00 07/20/25 12:00 Temperature Pulse Rate 122 H 122 H Pulse Rate [Bilateral Pedal (Dorsalis Pedis) Palpation] 118 H Respiratory Rate 27 H Blood Pressure 170/108 H Pulse Oximetry 98 Oxygen Delivery Room Air Oxygen Flow Rate Fraction of Inspired Oxygen 21 07/20/25 12:00 07/20/25 12:25 07/20/25 13:00 Temperature 36.8 C 36.8 C Pulse Rate 117 H 114 H 102 H Pulse Rate [Bilateral Pedal (Dorsalis Pedis) Palpation] Respiratory Rate 29 H 27 H Blood Pressure 170/91 H 159/119 H Pulse Oximetry 95 99 Oxygen Delivery Oxygen Flow Rate Fraction of Inspired Oxygen 07/20/25 13:00 07/20/25 14:00 07/20/25 14:00 Temperature 36.6 C Pulse Rate 106 H 106 H Pulse Rate [Bilateral Pedal (Dorsalis Pedis) Palpation] 122 H Respiratory Rate 25 H Blood Pressure 159/119 H 138/118 H Pulse Oximetry 100 Oxygen Delivery Oxygen Flow Rate Fraction of Inspired Oxygen 07/20/25 15:00 07/20/25 16:00 07/20/25 16:00 Temperature 36.9 C Pulse Rate 102 H 102 H Pulse Rate [Bilateral Pedal (Dorsalis Pedis) Palpation] 103 H Respiratory Rate 33 H 33 H Blood Pressure 143/115 H 143/107 H Pulse Oximetry 98 98 Oxygen Delivery Nasal Cannula Oxygen Flow Rate 0.5 Fraction of Inspired Oxygen 21 07/20/25 16:00 07/20/25 16:00 07/20/25 16:18 Temperature 36.9 C Pulse Rate 102 H 102 H 102 H Pulse Rate [Bilateral Pedal (Dorsalis Pedis) Palpation] Respiratory Rate 33 H 18 Blood Pressure 166/115 H Pulse Oximetry 98 96 Oxygen Delivery Nasal Cannula Oxygen Flow Rate 0.5 Fraction of Inspired Oxygen 07/20/25 17:00 07/20/25 17:13 07/20/25 18:00 Temperature Pulse Rate 95 109 H 91 Pulse Rate [Bilateral Pedal (Dorsalis Pedis) Palpation] Respiratory Rate 30 H Blood Pressure 154/111 H Pulse Oximetry 99 Oxygen Delivery Oxygen Flow Rate Fraction of Inspired Oxygen 07/20/25 18:00 07/20/25 20:20 07/20/25 20:27 Temperature 36.6 C Pulse Rate 91 92 Pulse Rate [Bilateral Pedal (Dorsalis Pedis) Palpation] 101 H Respiratory Rate 30 H 30 H Blood Pressure 165/115 H 155/101 H 155/101 H Pulse Oximetry 99 94 Oxygen Delivery Oxygen Flow Rate Fraction of Inspired Oxygen 07/20/25 20:30 07/20/25 20:32 07/20/25 20:53 Temperature Pulse Rate 94 87 Pulse Rate [Bilateral Pedal (Dorsalis Pedis) Palpation] Respiratory Rate Blood Pressure Pulse Oximetry 93 93 Oxygen Delivery Nasal Cannula Nasal Cannula Oxygen Flow Rate 0.5 Fraction of Inspired Oxygen 07/20/25 22:00 07/20/25 23:09 07/20/25 23:15 Temperature 36.7 C Pulse Rate 103 H 106 H Pulse Rate [Bilateral Pedal (Dorsalis Pedis) Palpation] 107 H Respiratory Rate 28 H Blood Pressure 147/109 H 147/109 H Pulse Oximetry 97 Oxygen Delivery Oxygen Flow Rate Fraction of Inspired Oxygen 07/20/25 23:40 07/21/25 00:00 07/21/25 02:00 Temperature Pulse Rate 101 H 96 Pulse Rate [Bilateral Pedal (Dorsalis Pedis) Palpation] Respiratory Rate Blood Pressure Pulse Oximetry 97 Oxygen Delivery Nasal Cannula Oxygen Flow Rate 0.5 Fraction of Inspired Oxygen 07/21/25 04:00 07/21/25 04:00 07/21/25 04:00 Temperature Pulse Rate 88 Pulse Rate [Bilateral Pedal (Dorsalis Pedis) Palpation] 107 H Respiratory Rate Blood Pressure 159/106 H Pulse Oximetry 94 Oxygen Delivery Nasal Cannula Oxygen Flow Rate 0.5 Fraction of Inspired Oxygen 07/21/25 04:18 07/21/25 06:00 07/21/25 07:39 Temperature 36.7 C Pulse Rate 93 110 H Pulse Rate [Bilateral Pedal (Dorsalis Pedis) Palpation] Respiratory Rate 26 H Blood Pressure 159/106 H Pulse Oximetry 94 96 Oxygen Delivery Nasal Cannula Oxygen Flow Rate 0.5 Fraction of Inspired Oxygen 07/21/25 08:00 07/21/25 08:00 07/21/25 08:00 Temperature 37.1 C Pulse Rate 111 H 119 H Pulse Rate [Bilateral Pedal (Dorsalis Pedis) Palpation] 108 H Respiratory Rate 25 H Blood Pressure 153/105 H Pulse Oximetry 96 Oxygen Delivery Oxygen Flow Rate Fraction of Inspired Oxygen 07/21/25 09:04 07/21/25 10:00 Temperature Pulse Rate 104 H Pulse Rate [Bilateral Pedal (Dorsalis Pedis) Palpation] Respiratory Rate Blood Pressure 146/89 H Pulse Oximetry Oxygen Delivery Oxygen Flow Rate Fraction of Inspired Oxygen Intake/Output Intake/Output: Intake & Output 07/18/25 07/19/25 07/20/25 07/21/25 23:59 23:59 23:59 23:59 Intake Total 2448.0 1585.8 328.6 888 Output Total 1755 2590 2225 950 Balance 693.0 -1004.2 -1896.4 -62 Meds/Results Medications: Active Medications Generic Name Dose Route Start Last Admin Trade Name Freq PRN Reason Stop Dose Admin Al Hydrox/Mg Hydrox/Simethicone 30 ml 07/19/25 21:05 07/20/25 23:15 Mag Hydrox/Al Hydrox/Simeth 30 Ml Udc PO 30 ml Q6H PRN Administration Indigestion Albuterol/Ipratropium 3 ml 07/16/25 08:21 07/19/25 23:48 Ipratropium 0.5 Mg/Albuterol Sulfate 2.5 Mg (Base) Ampul.Neb 3 Ml INHALATION 3 ml Q6HRT PRN Administration Wheezing Dextrose 12.5 gm 07/16/25 08:21 Dextrose 50% 25 Gm/50 Ml Syringe IV PUSH PRN PRN Hypoglycemia Protocol Diazepam 5 mg 07/20/25 08:06 07/20/25 23:15 Diazepam Inj (*Crx) 10 Mg/2 Ml Syringe IV PUSH 5 mg Q2H PRN Administration CIWA 11-15 Diazepam 10 mg 07/20/25 08:06 07/21/25 08:29 Diazepam Inj (*Crx) 10 Mg/2 Ml Syringe IV PUSH 10 mg Q1H PRN Administration CIWA > 15 Diltiazem HCl 60 mg 07/20/25 12:00 07/21/25 05:14 Diltiazem Hcl 60 Mg Tablet PO 60 mg Q6HR MIGUEL A Administration Enoxaparin Sodium 65 mg 07/16/25 09:00 07/21/25 08:33 Enoxaparin 80 Mg/0.8 Ml Syringe SUB-Q 65 mg Q12HR MIGUEL A Administration Folic Acid 1 mg 07/20/25 09:00 07/21/25 08:34 Folic Acid 1 Mg Tablet PO 1 mg DAILY MIGUEL A Administration Glucagon 1 mg 07/16/25 08:21 Glucagon For Inj 1 Mg Vial IM PRN PRN Hypoglycemia Protocol Glucose 15 gm 07/16/25 08:21 Glucose Oral Gel 15 Gm Of Glucse In 37.5 Gm Tube PO PRN PRN Hypoglycemia Protocol Dextrose 1,000 mls @ 100 mls/hr 07/16/25 08:21 Dextrose 5% 1,000 Ml IVPB PRN PRN Hypoglycemia Protocol Insulin Aspart 2 - 5 units 07/20/25 12:00 07/21/25 08:34 Insulin Aspart (*Bkc) 100 Units/Ml SUB-Q Not Given TIDWM MIGUEL A Protocol Insulin Aspart 1 - 2 units 07/20/25 21:00 07/20/25 20:49 Insulin Aspart (*Bkc) 100 Units/Ml SUB-Q Not Given HS MIGUEL A Protocol Labetalol HCl 20 mg 07/19/25 13:07 07/20/25 17:13 Labetalol Hcl Inj 100 Mg/20 Ml Vial IV PUSH 20 mg Q4H PRN Administration SBP > 160 and HR> 60 -1st choice Lorazepam 1 mg 07/20/25 08:04 07/20/25 17:13 Lorazepam (*Crx) 1 Mg Tablet PO 1 mg Q4H PRN Administration CIWA Score 8-10 Melatonin 5 mg 07/20/25 21:00 07/20/25 20:52 Melatonin 5 Mg Tablet PO 5 mg HS MIGUEL A Administration Methylprednisolone Sodium Succinate 60 mg 07/19/25 09:00 07/21/25 08:32 Methylprednisolone Sod Succ 125 Mg Vial IV PUSH 60 mg QAM MIGUEL A Administration Metoprolol Tartrate 5 mg 07/19/25 13:07 Metoprolol Tartrate Inj 5 Mg/5 Ml Vial IV PUSH Q2H PRN Heart rate more than 120 Multi-Ingred Cream/Lotion/Oil/Oint 1 applic 07/16/25 21:00 07/21/25 08:34 Mineral Oil/White Petrolatum Ointment EACH EYE Not Given Q12HR MIGUEL A Nitrofurantoin Macrocrystals 100 mg 07/20/25 10:05 07/21/25 09:01 Nitrofurantoin Monohyd Macrocr 100 Mg Cap PO 100 mg Q12HR MIGUEL A Administration Ondansetron HCl 4 mg 07/20/25 10:37 Ondansetron Inj 4 Mg/2 Ml Vial IV PUSH Q4H PRN Nausea And Vomiting Pantoprazole Sodium 40 mg 07/16/25 09:00 07/21/25 08:34 Pantoprazole Sodium Iv 40 Mg Vial IV PUSH 40 mg QAM MIGUEL A Administration Sodium Chloride 10 ml 07/17/25 14:00 07/21/25 05:14 Central Line Flush IV PUSH 10 ml Q8HR MIGUEL A Administration Sodium Chloride 20 ml 07/17/25 06:35 Central Line Flush IV PUSH PRN PRN after blood draws Thiamine HCl 100 mg 07/20/25 09:00 07/21/25 08:34 Thiamine Hcl 100 Mg Tablet PO 100 mg QAM MIGUEL A Administration Radiology Results: ITS Impressions Chest CTA 07/16/25 08:43 IMPRESSION: 1. No pulmonary embolus. 2. Moderate-sized left pneumothorax. 3. Mild pulmonary edema. 4. Left lung upper lobe nodules, which may be infection or less likely metastatic disease. 5. Moderate emphysema. Chest X-Ray 07/21/25 08:20 IMPRESSION: 1. Stable exam compared to yesterday. No pneumothorax seen and left-sided chest tube remains unchanged in position. Labs Labs: Laboratory Results - last 24 hr 07/20/25 07/20/25 07/20/25 12:20 17:09 20:48 WBC RBC Hgb Hct MCV MCH MCHC RDW Plt Count MPV Puncture Site ABG pH ABG pCO2 ABG pO2 ABG PO2/FiO2 Ratio ABG HCO3 ABG O2 Saturation ABG O2 Content ABG Base Excess A-a Gradient Oxyhemoglobin Carboxyhemoglobin Methemoglobin Reduced Hemoglobin Total Hemoglobin O2 Delivery Device O2 Liters/Min FiO2 Sodium Potassium Chloride Carbon Dioxide Anion Gap BUN Creatinine Estim Creat Clear Calc Estimated GFR Glucose POC Capillary Glucose 126 H 137 H 149 H Calcium Phosphorus Magnesium Total Bilirubin AST ALT Alkaline Phosphatase Total Protein Albumin 07/21/25 07/21/25 07/21/25 04:48 05:13 07:07 WBC 16.1 H RBC 5.03 Hgb 14.9 Hct 44.3 MCV 88.1 MCH 29.6 MCHC 33.6 RDW 16.5 H Plt Count 230 D MPV 9.6 Puncture Site Left radial ABG pH 7.497 H ABG pCO2 32.3 L ABG pO2 79.4 L ABG PO2/FiO2 Ratio 3.61 ABG HCO3 24.5 ABG O2 Saturation 96.7 ABG O2 Content 21.4 ABG Base Excess 2.0 A-a Gradient 38.9 Oxyhemoglobin 94.7 Carboxyhemoglobin 1.2 Methemoglobin 0.2 Reduced Hemoglobin 3.9 Total Hemoglobin 16.1 O2 Delivery Device Nasal cannula O2 Liters/Min 0.5 FiO2 22 Sodium 128 L Potassium 4.1 Chloride 96 L Carbon Dioxide 29 Anion Gap 3 L BUN 35 H Creatinine 0.68 L Estim Creat Clear Calc 75 Estimated GFR > 60 Glucose 160 H POC Capillary Glucose 174 H Calcium 7.8 L Phosphorus 2.9 Magnesium 2.2 Total Bilirubin 1.0 AST 39 ALT 35 Alkaline Phosphatase 50 Total Protein 6.3 Albumin 3.3 L Imaging Attestation: I personally reviewed and interpreted this imaging study as follows: (Chest x-ray from today) My impression: Chest tube in good position, no pneumothorax Radiologist's impression: Same
--- NOTE | 2025-07-21 15:08 | PM.IMPN ---
Progress Note: A&P Assessment and Plan (1) Respiratory failure with hypoxia and hypercapnia: Qualifiers: Chronicity: acute Qualified Code(s): J96.01 - Acute respiratory failure with hypoxia; J96.02 - Acute respiratory failure with hypercapnia Code(s): J96.91 - Respiratory failure, unspecified with hypoxia; J96.92 - Respiratory failure, unspecified with hypercapnia Status: Acute Assessment and Plan: Multifactorial acute on chronic respiratory failure secondary to acute exacerbation of COPD, left pneumothorax and AFib with RVR Vent settings reviewed and I have decreased the tidal volume to 420 and rate to 18 Left pneumothorax Status post chest tube placement which is clamped and there is no air leak at this time Empiric Rocephin for COPD exacerbation. No significant consolidation on infiltrates on the CT scan to suggest pneumonia. Negative blood cultures till now Viral panel was negative CT scan and chest x-ray reviewed Sedated with fentanyl and propofol at this time. At [facility] 07/18 sedation holiday was performed to evaluate patient for weaning trial. Patient became tachypneic with respiratory rate in high 30s with increased respiratory distress and work of breathing. Patient was diaphoretic. Sedation holiday was aborted and patient was placed back on sedation. Patient never went on PSV 07/19 weaning trial was done. Patient was extubated. 07/20 patient has done well and is on nasal cannula. Continue BiPAP p.r.n. Continue steroids and bronchodilators 07/21 patient fully awake and alert, on room air without respiratory distress (2) Acute exacerbation of chronic obstructive pulmonary disease: Code(s): J44.1 - Chronic obstructive pulmonary disease with (acute) exacerbation Status: Acute Assessment and Plan: See above (3) Pneumothorax, left: Code(s): J93.9 - Pneumothorax, unspecified Status: Acute Assessment and Plan: Patient is now extubated. No air leak. Chest x-ray shows no or residual pneumothorax. Surgery on board, chest tube is clamped, could be for discontinuation today, will follow with surgery recommendations (4) Alcohol abuse: Code(s): F10.10 - Alcohol abuse, uncomplicated Status: Acute Assessment and Plan: 07/21 CIWA was 18 today, patient was tachycardic, anxious, diaphoretic, received dose of Librium with improvement to CIWA 5 with improvement of these symptom CIWA monitoring ordered Continue thiamine and folic acid P.r.n. benzodiazepine ordered as per CIWA score Wean off Precedex drip s. (5) Hypertension: Code(s): I10 - Essential (primary) hypertension Status: Acute Assessment and Plan: Increase p.o. Cardizem (6) Atrial fibrillation with rapid ventricular response: Code(s): I48.91 - Unspecified atrial fibrillation Status: Acute Assessment and Plan: AFib with RVR. Continue Lovenox. Continue p.o. Cardizem and increase doses 60 q.6 hours EchoSummary 1. Left ventricular chamber dimension is normal. 2. Left ventricular systolic function is normal, estimated at 50-55%. 3. There is moderately increased left ventricular wall thickness. 4. Right ventricular systolic function is normal. 5. Left atrial chamber dimension is severely enlarged. 6. Right atrial chamber dimension is moderately enlarged. 7. There is moderate to severe mitral valve regurgitation. 8. There is mild tricuspid valve regurgitation. 9. Pulmonary hypertension, estimated pulmonary arterial systolic pressure is 45 mmHg. (7) Cardiomyopathy: Qualifiers: Cardiomyopathy type: unspecified Qualified Code(s): I42.9 - Cardiomyopathy, unspecified Code(s): I42.9 - Cardiomyopathy, unspecified Status: Acute Assessment and Plan: Echocardiogram as below (8) Electrolyte abnormality: Code(s): E87.8 - Other disorders of electrolyte and fluid balance, not elsewhere classified Status: Acute Assessment and Plan: Calcium replacement ordered (9) Hyperglycemia: Code(s): R73.9 - Hyperglycemia, unspecified Status: Acute Assessment and Plan: Continue sliding scale insulin. DC Lantus (10) Sepsis: Qualifiers: Sepsis type: sepsis due to unspecified organism Sepsis acute organ dysfunction status: without acute organ dysfunction Qualified Code(s): A41.9 - Sepsis, unspecified organism Code(s): A41.9 - Sepsis, unspecified organism Status: Acute Assessment and Plan: Secondary to UTI Urine culture is growing Klebsiella which is resistant to Rocephin Add Macrobid QQ bleed take Rocephin course for COPD exacerbation today History of Proteus UTI which was sensitive to Rocephin (11) UTI (urinary tract infection): Code(s): N39.0 - Urinary tract infection, site not specified Status: Acute Assessment and Plan: Cultures growing Klebsiella. Klebsiella is resistant to ceftriaxone I will start Macrobid p.o. Plan Patient was requesting to be discharged today as he is to take care of his 87-year-old mother with dementia his brother was supposed to be leaving [facility] to [place], to work. He was informed of his clinical status not been optimal for discharge, including the fact that he still has his chest tube in place. He showed significant concern over his mother. Patient called his brother and was placed on speaker phone with me, and we discussed the current situation. His brother should any that he will find a way to get his mother taking care of and that patient does not need to be discharged home until he is stable. The patient was on the call and heard everything. There is suspicion that the patient wants to leave as he is having cravings for substances for which he suffers from substance use disorder given his intense desire to leave despite this. However patient was counseled that he had a significant episode of alcohol withdrawal this morning requiring a dose of Librium. He says he does not have Librium and only has buprenorphine for his opioid use disorder. He was made aware that not being with Librium would likely cause a significant alcohol withdrawal episode that could lend him back in the hospital. He also was made aware that if he leaves AMA he would not be able to get any medications prescribed. Patient acknowledged. DVT prophylaxis -continue Lovenox therapeutic dose Stress ulcer prophylaxis -PPI Nutrition -advance diet as tolerated Code Status - Full Code Subjective Date/time seen: 07/21/25 15:08 Interval history: 65-year-old male with PMH BPH, tobacco use disorder, alcohol abuse, fentanyl abuse, AFib on Xarelto and metoprolol but noncompliant, cardiomyopathy, history of UTI, hypertension, presenting to [place] [facility] on 07/15/2025 complaining of shortness of breath. Apparently he had called EMS several times in the past few days for similar symptom but refused to be transferred to the hospital. EMS finally transferred him and the patient was tripoding with O2 saturation 70% on room air., in the ER he received albuterol, ipratropium, magnesium, Solu-Medrol, placed on BiPAP with significant improvement. Patient noted to be in AFib with RVR with heart rate 150-180. He was ready to check out of the ER in spite of being told to stay. Patient also thought he was going through opiate and alcohol withdrawal. IV buprenorphine administered. Patient given diltiazem 25 mg IV x1, eventually placed on 5 milligram/hour GTT due to refractory RVR. Given 1 L lactated Ringer bolus. Then, patient began to deteriorate reporting severe shortness of breath. Wheezing. He ripped off his BiPAP. Patient was given Versed IV for some anxiolysis but that did not work. Patient given IM epinephrine as he was wheezing. Started on heparin GTT for AFib. Patient was then intubated for respiratory failure. A left-sided subclavian central venous catheter failed x2 with kinking of the wire, afterwards a left IJ successfully placed under ultrasound guidance. X-ray confirmed placement of central line, ET tube, OG tube. Stat CTA ordered to rule out thromboembolic event. Patient started on Versed drip. Vent settings at 16, 400, 100 FiO2, peep 5. ABG shortly after demonstrated pH 7.00, pCO2 100, tidal volume increased to 500. Repeat ABG pending. PO2 489.5, FiO2 being weaned down. Otherwise is initial labs demonstrate white count 14.7, hemoglobin 13.9, platelets 209, sodium 136, BUN 19, serum creatinine 0.72, AST 73, troponin 0.022. The CT chest above did demonstrate left-sided pneumothorax. The ER physician and myself reviewed this. Patient also has emphysematous blebs. Official radiology interpretation pending. No PE apparent. Pulmonary edema or consolidations apparent. The patient was still saturating well on 100% FiO2 and hemodynamically stable on the vent. ER physician placed 28 Fijian chest tube on left side, revealing decompression on repeat imaging. General surgery consulted for management of chest tube. [employer] Manager consulted. Advised to start Levaquin empirically. While on max dose Versed 10 mg per hour patient has a RASS of 1-2. Fentanyl 50 mcg per hour started. Patient responded to ketamine well during rapid sequence induction, was given another dose by ER physician as he began to thrash. Blood pressure 96/60, second liter of isotonic fluid bolus being infused. Diltiazem GTT then stop due to improvement of heart rate and improvement of underlying process. Urinary catheter placed. Review of Systems Review of Systems: All systems reviewed & are unremarkable except as noted in HPI and below (HPI) Exam Narrative: General: Pt is alert awake and in NAD. Slightly anxious. Thin Lungs/Chest: No crackles or wheezing. Chest tube on the left. No air leak present. Cardiac: RRR. Normal S1 S2. No murmurs Circulation: Pedal pulses are intact and symmetrical. Abdomen: Normal bowel sounds.. Soft. NT. ND. Extremities: No clubbing, cyanosis or edema. Warm : Lau in place Neurologic: Follows commands. Moves all 4 extremities PERRL AO x3 Skin: No Rash Objective Data Vital Signs Vital Signs: Vital Signs - 24 hr 07/20/25 16:00 07/20/25 16:00 07/20/25 16:00 Temperature Pulse Rate 102 H 102 H Pulse Rate [Bilateral Pedal (Dorsalis Pedis) Palpation] 103 H Respiratory Rate 33 H Blood Pressure 143/107 H Pulse Oximetry 98 Oxygen Delivery Nasal Cannula Oxygen Flow Rate 0.5 Fraction of Inspired Oxygen 21 07/20/25 16:00 07/20/25 16:18 07/20/25 17:00 Temperature 98.4 F Pulse Rate 102 H 102 H 95 Pulse Rate [Bilateral Pedal (Dorsalis Pedis) Palpation] Respiratory Rate 33 H 18 30 H Blood Pressure 166/115 H 154/111 H Pulse Oximetry 98 96 99 Oxygen Delivery Nasal Cannula Oxygen Flow Rate 0.5 Fraction of Inspired Oxygen 07/20/25 17:13 07/20/25 18:00 07/20/25 18:00 Temperature Pulse Rate 109 H 91 91 Pulse Rate [Bilateral Pedal (Dorsalis Pedis) Palpation] Respiratory Rate 30 H Blood Pressure 165/115 H Pulse Oximetry 99 Oxygen Delivery Oxygen Flow Rate Fraction of Inspired Oxygen 07/20/25 20:20 07/20/25 20:27 07/20/25 20:30 Temperature 97.9 F Pulse Rate 92 Pulse Rate [Bilateral Pedal (Dorsalis Pedis) Palpation] 101 H Respiratory Rate 30 H Blood Pressure 155/101 H 155/101 H Pulse Oximetry 94 93 Oxygen Delivery Nasal Cannula Oxygen Flow Rate 0.5 Fraction of Inspired Oxygen 07/20/25 20:32 07/20/25 20:53 07/20/25 22:00 Temperature Pulse Rate 94 87 103 H Pulse Rate [Bilateral Pedal (Dorsalis Pedis) Palpation] Respiratory Rate Blood Pressure Pulse Oximetry 93 Oxygen Delivery Nasal Cannula Oxygen Flow Rate Fraction of Inspired Oxygen 07/20/25 23:09 07/20/25 23:15 07/20/25 23:40 Temperature 98.0 F Pulse Rate 106 H Pulse Rate [Bilateral Pedal (Dorsalis Pedis) Palpation] 107 H Respiratory Rate 28 H Blood Pressure 147/109 H 147/109 H Pulse Oximetry 97 97 Oxygen Delivery Nasal Cannula Oxygen Flow Rate 0.5 Fraction of Inspired Oxygen 07/21/25 00:00 07/21/25 02:00 07/21/25 04:00 Temperature Pulse Rate 101 H 96 Pulse Rate [Bilateral Pedal (Dorsalis Pedis) Palpation] 107 H Respiratory Rate Blood Pressure 159/106 H Pulse Oximetry Oxygen Delivery Oxygen Flow Rate Fraction of Inspired Oxygen 07/21/25 04:00 07/21/25 04:00 07/21/25 04:18 Temperature 98.1 F Pulse Rate 88 93 Pulse Rate [Bilateral Pedal (Dorsalis Pedis) Palpation] Respiratory Rate 26 H Blood Pressure 159/106 H Pulse Oximetry 94 94 Oxygen Delivery Nasal Cannula Oxygen Flow Rate 0.5 Fraction of Inspired Oxygen 07/21/25 06:00 07/21/25 07:39 07/21/25 08:00 Temperature 98.8 F Pulse Rate 110 H 111 H Pulse Rate [Bilateral Pedal (Dorsalis Pedis) Palpation] Respiratory Rate 25 H Blood Pressure 153/105 H Pulse Oximetry 96 96 Oxygen Delivery Nasal Cannula Oxygen Flow Rate 0.5 Fraction of Inspired Oxygen 07/21/25 08:00 07/21/25 08:00 07/21/25 08:00 Temperature Pulse Rate 119 H Pulse Rate [Bilateral Pedal (Dorsalis Pedis) Palpation] 108 H Respiratory Rate Blood Pressure Pulse Oximetry 97 Oxygen Delivery Room Air Oxygen Flow Rate Fraction of Inspired Oxygen 07/21/25 09:04 07/21/25 10:00 07/21/25 12:00 Temperature Pulse Rate 104 H Pulse Rate [Bilateral Pedal (Dorsalis Pedis) Palpation] 126 H Respiratory Rate Blood Pressure 146/89 H Pulse Oximetry Oxygen Delivery Oxygen Flow Rate Fraction of Inspired Oxygen 07/21/25 12:00 07/21/25 13:10 Temperature 97.8 F Pulse Rate 82 Pulse Rate [Bilateral Pedal (Dorsalis Pedis) Palpation] 126 H Respiratory Rate 24 H Blood Pressure 161/86 H Pulse Oximetry 94 Oxygen Delivery Oxygen Flow Rate Fraction of Inspired Oxygen Intake/Output Intake/Output: Intake & Output 07/18/25 07/19/25 07/20/25 07/21/25 23:59 23:59 23:59 23:59 Intake Total 2448.0 1585.8 328.6 1248 Output Total 1755 2590 2225 1250 Balance 693.0 -1004.2 -1896.4 -2 Meds/Results Medications: Active Medications Generic Name Dose Route Start Last Admin Trade Name Freq PRN Reason Stop Dose Admin Al Hydrox/Mg Hydrox/Simethicone 30 ml 07/19/25 21:05 07/20/25 23:15 Mag Hydrox/Al Hydrox/Simeth 30 Ml Udc PO 30 ml Q6H PRN Administration Indigestion Albuterol/Ipratropium 3 ml 07/16/25 08:21 07/19/25 23:48 Ipratropium 0.5 Mg/Albuterol Sulfate 2.5 Mg (Base) Ampul.Neb 3 Ml INHALATION 3 ml Q6HRT PRN Administration Wheezing Dextrose 12.5 gm 07/16/25 08:21 Dextrose 50% 25 Gm/50 Ml Syringe IV PUSH PRN PRN Hypoglycemia Protocol Diazepam 5 mg 07/20/25 08:06 07/20/25 23:15 Diazepam Inj (*Crx) 10 Mg/2 Ml Syringe IV PUSH 5 mg Q2H PRN Administration CIWA 11-15 Diazepam 10 mg 07/20/25 08:06 07/21/25 08:29 Diazepam Inj (*Crx) 10 Mg/2 Ml Syringe IV PUSH 10 mg Q1H PRN Administration CIWA > 15 Diltiazem HCl 60 mg 07/20/25 12:00 07/21/25 13:12 Diltiazem Hcl 60 Mg Tablet PO 60 mg Q6HR MIGUEL A Administration Enoxaparin Sodium 65 mg 07/16/25 09:00 07/21/25 08:33 Enoxaparin 80 Mg/0.8 Ml Syringe SUB-Q 65 mg Q12HR MIGUEL A Administration Folic Acid 1 mg 07/20/25 09:00 07/21/25 08:34 Folic Acid 1 Mg Tablet PO 1 mg DAILY MIGUEL A Administration Glucagon 1 mg 07/16/25 08:21 Glucagon For Inj 1 Mg Vial IM PRN PRN Hypoglycemia Protocol Glucose 15 gm 07/16/25 08:21 Glucose Oral Gel 15 Gm Of Glucse In 37.5 Gm Tube PO PRN PRN Hypoglycemia Protocol Dextrose 1,000 mls @ 100 mls/hr 07/16/25 08:21 Dextrose 5% 1,000 Ml IVPB PRN PRN Hypoglycemia Protocol Insulin Aspart 2 - 5 units 07/20/25 12:00 07/21/25 13:11 Insulin Aspart (*Bkc) 100 Units/Ml SUB-Q Not Given TIDWM MIGUEL A Protocol Insulin Aspart 1 - 2 units 07/20/25 21:00 07/20/25 20:49 Insulin Aspart (*Bkc) 100 Units/Ml SUB-Q Not Given HS MIGUEL A Protocol Labetalol HCl 20 mg 07/19/25 13:07 07/20/25 17:13 Labetalol Hcl Inj 100 Mg/20 Ml Vial IV PUSH 20 mg Q4H PRN Administration SBP > 160 and HR> 60 -1st choice Lorazepam 1 mg 07/20/25 08:04 07/20/25 17:13 Lorazepam (*Crx) 1 Mg Tablet PO 1 mg Q4H PRN Administration CIWA Score 8-10 Melatonin 5 mg 07/20/25 21:00 07/20/25 20:52 Melatonin 5 Mg Tablet PO 5 mg HS MIGUEL A Administration Methylprednisolone Sodium Succinate 60 mg 07/19/25 09:00 07/21/25 08:32 Methylprednisolone Sod Succ 125 Mg Vial IV PUSH 60 mg QAM MIGUEL A Administration Metoprolol Tartrate 5 mg 07/19/25 13:07 Metoprolol Tartrate Inj 5 Mg/5 Ml Vial IV PUSH Q2H PRN Heart rate more than 120 Multi-Ingred Cream/Lotion/Oil/Oint 1 applic 07/16/25 21:00 07/21/25 08:34 Mineral Oil/White Petrolatum Ointment EACH EYE Not Given Q12HR MIGUEL A Nitrofurantoin Macrocrystals 100 mg 07/20/25 10:05 07/21/25 09:01 Nitrofurantoin Monohyd Macrocr 100 Mg Cap PO 100 mg Q12HR MIGUEL A Administration Ondansetron HCl 4 mg 07/20/25 10:37 Ondansetron Inj 4 Mg/2 Ml Vial IV PUSH Q4H PRN Nausea And Vomiting Pantoprazole Sodium 40 mg 07/16/25 09:00 07/21/25 08:34 Pantoprazole Sodium Iv 40 Mg Vial IV PUSH 40 mg QAM MIGUEL A Administration Sodium Chloride 10 ml 07/17/25 14:00 07/21/25 05:14 Central Line Flush IV PUSH 10 ml Q8HR MIGUEL A Administration Sodium Chloride 20 ml 07/17/25 06:35 Central Line Flush IV PUSH PRN PRN after blood draws Thiamine HCl 100 mg 07/20/25 09:00 07/21/25 08:34 Thiamine Hcl 100 Mg Tablet PO 100 mg QAM MIGUEL A Administration Radiology Results: ITS Impressions Chest CTA 07/16/25 08:43 IMPRESSION: 1. No pulmonary embolus. 2. Moderate-sized left pneumothorax. 3. Mild pulmonary edema. 4. Left lung upper lobe nodules, which may be infection or less likely metastatic disease. 5. Moderate emphysema. Chest X-Ray 07/21/25 12:43 Impression: Chest tube placement detailed above, no pneumothorax is identified Labs Labs: Laboratory Results - last 24 hr 07/20/25 07/20/25 07/21/25 17:09 20:48 04:48 WBC RBC Hgb Hct MCV MCH MCHC RDW Plt Count MPV Puncture Site Left radial ABG pH 7.497 H ABG pCO2 32.3 L ABG pO2 79.4 L ABG PO2/FiO2 Ratio 3.61 ABG HCO3 24.5 ABG O2 Saturation 96.7 ABG O2 Content 21.4 ABG Base Excess 2.0 A-a Gradient 38.9 Oxyhemoglobin 94.7 Carboxyhemoglobin 1.2 Methemoglobin 0.2 Reduced Hemoglobin 3.9 Total Hemoglobin 16.1 O2 Delivery Device Nasal cannula O2 Liters/Min 0.5 FiO2 22 Sodium Potassium Chloride Carbon Dioxide Anion Gap BUN Creatinine Estim Creat Clear Calc Estimated GFR Glucose POC Capillary Glucose 137 H 149 H Calcium Phosphorus Magnesium Total Bilirubin AST ALT Alkaline Phosphatase Total Protein Albumin 07/21/25 07/21/25 07/21/25 05:13 07:07 12:37 WBC 16.1 H RBC 5.03 Hgb 14.9 Hct 44.3 MCV 88.1 MCH 29.6 MCHC 33.6 RDW 16.5 H Plt Count 230 D MPV 9.6 Puncture Site ABG pH ABG pCO2 ABG pO2 ABG PO2/FiO2 Ratio ABG HCO3 ABG O2 Saturation ABG O2 Content ABG Base Excess A-a Gradient Oxyhemoglobin Carboxyhemoglobin Methemoglobin Reduced Hemoglobin Total Hemoglobin O2 Delivery Device O2 Liters/Min FiO2 Sodium 128 L Potassium 4.1 Chloride 96 L Carbon Dioxide 29 Anion Gap 3 L BUN 35 H Creatinine 0.68 L Estim Creat Clear Calc 75 Estimated GFR > 60 Glucose 160 H POC Capillary Glucose 174 H 227 H Calcium 7.8 L Phosphorus 2.9 Magnesium 2.2 Total Bilirubin 1.0 AST 39 ALT 35 Alkaline Phosphatase 50 Total Protein 6.3 Albumin 3.3 L Hospitalist MIPS Advance Care Plan I have confirmed that the patient's Advanced Care Plan is present, code status is documented, or surrogate decision maker is listed in patient medical record.: Yes Medication Reconciliation I have utilized all available resources to obtain, update and review the patients current medications (includes all prescriptions, OTC, herbals, cannabis, and nutritional supplements).: Yes
[2025-07-21] MEDS: INSULIN ASPART (*BKC) 100 UNITS/ML SUB-Q (20:50)
[2025-07-21] MEDS: LORazepam (*CRX) 1 MG TABLET PO (20:52)
[2025-07-21] MEDS: MELATONIN 5 MG TABLET PO (20:52)
--- NOTE | 2025-07-21 21:20 | PC.NURSE ---
Patient found with bed alarm off and sitting at foot of bed. Patient demanding to sit in a chair. Explained to patient they have a chest tube and a bedrest order that needs to be followed. Also informed patient that raising his voice does not help us communicate with each other. Patient apologized and sat back in bed. Bed alarm turned on and reiterated with tech that he can not sit in chair.
[2025-07-22] VITALS (17 sets, daily range): BP systolic 144–177; BP diastolic 91–111; PULSE 55–129; RESP 18–22; TEMP 36.4–36.9; O2SAT 94–98
[2025-07-22 04:38] LABS: Hematocrit 48.9 % (42.0-52.0); Hemoglobin 16.3 g/dL (14.0-18.0); Immature Granulocyte Percent A 1.6 % (0-0.5); Lymphocytes Absolute Auto 1.90 K/mm3 (0.9-3.2); Mean Corpuscular HGB Conc 33.3 g/dl (32-36); Mean Corpuscular Hemoglobin 29.5 pg (26-34); Mean Corpuscular Volume 88.6 fl (80-100); Nucleated Red Blood Cells Absolute Auto 0.000 K/mm3 (0.0-0.012); Nucleated Red Blood Cells Perc 0.0 % (0.0-0.2); Platelet Count Result 231 k/mm3 (150-375); Red Blood Count 5.52 M/mm3 (4.6-6.20); White Blood Count 14.7 K/mm3 (4.5-10.0)
[2025-07-22 05:10] LABS: Alanine Aminotransferase 34 U/L (6-50); Albumin Level 4.0 g/dL (3.5-5.1); Alkaline Phosphatase 59 U/L (38-126); Anion Gap 6 mmol/L (4-12); Aspartate Amino Transferase 33 U/L (17-59); Bilirubin,Total 1.1 mg/dL (0.2-1.3); Blood Urea Nitrogen 30 mg/dL (9-20); Calcium 8.5 mg/dL (8.4-10.2); Carbon Dioxide 28 mmol/L (22-30); Chloride 98 mmol/L (98-107); Estimated CRCL calculation 70 ml/min; Estimated Glomerular Filt Rate > 60; Glucose 127 mg/dL (65-110); Potassium 4.3 mmol/L (3.4-5.0); Sodium 132 mmol/L (137-145); Total Protein 7.3 g/dL (6.3-8.2)
[2025-07-22] MEDS: SODIUM CHLORIDE 0.9% IV 1,000 ML 75 ML IV CONT (10:40)
[2025-07-22] MEDS: PANTOPRAZOLE SODIUM IV 40 MG VIAL IV PUSH (10:40)
[2025-07-22] MEDS: NITROFURANTOIN MONOHYD MACROCR 100 MG CAP PO ×2 (10:40→21:07)
[2025-07-22] MEDS: THIAMINE HCL 100 MG TABLET PO (10:40)
[2025-07-22] MEDS: FOLIC ACID 1 MG TABLET PO (10:40)
--- NOTE | 2025-07-22 11:22 | PM.PNGS ---
Progress Note: A&P Assessment and Plan (1) Pneumothorax, left: Code(s): J93.9 - Pneumothorax, unspecified Status: Acute Assessment and Plan: no residual pneumothorax after left chest tube on water seal over the last day, chest tube removed at bedside, will recheck chest x-ray after removal, if no issues later today can possibly go home Subjective Subjective Date/Time Seen: 07/22/25 11:22 Interval history: feels good, denies any issues with his breathing, wants to go home Review of Systems Review of Systems: All systems reviewed & are unremarkable except as noted in HPI and below Exam Const: General: cooperative, comfortable, no acute distress and ill appearing Resp: Auscultation: diminished lung sounds Other: left-sided chest tube with no air leak, on water seal Cardio: Rate: regular rate Rhythm: regular rhythm GI: Inspection: normal to inspection Objective Data Vital Signs Vital Signs: Vital Signs - 24 hr 07/21/25 12:00 07/21/25 12:00 07/21/25 12:00 Temperature 36.6 C Pulse Rate 82 Pulse Rate [Bilateral Pedal (Dorsalis Pedis) Palpation] 126 H Respiratory Rate 24 H Blood Pressure 161/86 H Pulse Oximetry 94 98 Oxygen Delivery Room Air 07/21/25 12:00 07/21/25 13:10 07/21/25 14:00 Temperature Pulse Rate 123 H 124 H Pulse Rate [Bilateral Pedal (Dorsalis Pedis) Palpation] 126 H Respiratory Rate Blood Pressure Pulse Oximetry Oxygen Delivery 07/21/25 16:00 07/21/25 16:00 07/21/25 16:00 Temperature 36.8 C Pulse Rate 100 Pulse Rate [Bilateral Pedal (Dorsalis Pedis) Palpation] 113 H Respiratory Rate 24 H Blood Pressure 150/100 H Pulse Oximetry 97 97 Oxygen Delivery Room Air 07/21/25 16:00 07/21/25 18:00 07/21/25 20:00 Temperature 37.2 C Pulse Rate 113 H 105 H 106 H Pulse Rate [Bilateral Pedal (Dorsalis Pedis) Palpation] Respiratory Rate 15 Blood Pressure 144/89 H Pulse Oximetry 97 Oxygen Delivery 07/21/25 20:00 07/21/25 22:00 07/22/25 00:00 Temperature 36.8 C Pulse Rate 105 H 100 87 Pulse Rate [Bilateral Pedal (Dorsalis Pedis) Palpation] Respiratory Rate 18 Blood Pressure 151/97 H Pulse Oximetry 98 Oxygen Delivery 07/22/25 00:00 07/22/25 02:00 07/22/25 04:00 Temperature Pulse Rate 96 129 H 105 H Pulse Rate [Bilateral Pedal (Dorsalis Pedis) Palpation] Respiratory Rate Blood Pressure Pulse Oximetry Oxygen Delivery 07/22/25 04:00 07/22/25 06:00 07/22/25 06:08 Temperature 36.9 C Pulse Rate 111 H 113 H Pulse Rate [Bilateral Pedal (Dorsalis Pedis) Palpation] Respiratory Rate 20 Blood Pressure 160/111 H 160/107 H Pulse Oximetry 96 Oxygen Delivery 07/22/25 08:00 Temperature 36.8 C Pulse Rate 101 H Pulse Rate [Bilateral Pedal (Dorsalis Pedis) Palpation] Respiratory Rate 22 H Blood Pressure 160/99 H Pulse Oximetry 96 Oxygen Delivery Intake/Output Intake/Output: Intake & Output 07/19/25 07/20/25 07/21/25 07/22/25 23:59 23:59 23:59 23:59 Intake Total 1585.8 328.6 2068 684 Output Total 2590 2225 1570 1315 Balance -1004.2 -1896.4 732 -471 Meds/Results Medications: Active Medications Generic Name Dose Route Start Last Admin Trade Name Freq PRN Reason Stop Dose Admin Al Hydrox/Mg Hydrox/Simethicone 30 ml 07/19/25 21:05 07/20/25 23:15 Mag Hydrox/Al Hydrox/Simeth 30 Ml Udc PO 30 ml Q6H PRN Administration Indigestion Albuterol/Ipratropium 3 ml 07/16/25 08:21 07/19/25 23:48 Ipratropium 0.5 Mg/Albuterol Sulfate 2.5 Mg (Base) Ampul.Neb 3 Ml INHALATION 3 ml Q6HRT PRN Administration Wheezing Dextrose 12.5 gm 07/16/25 08:21 Dextrose 50% 25 Gm/50 Ml Syringe IV PUSH PRN PRN Hypoglycemia Protocol Diazepam 5 mg 07/20/25 08:06 07/20/25 23:15 Diazepam Inj (*Crx) 10 Mg/2 Ml Syringe IV PUSH 5 mg Q2H PRN Administration CIWA 11-15 Diazepam 10 mg 07/20/25 08:06 07/21/25 08:29 Diazepam Inj (*Crx) 10 Mg/2 Ml Syringe IV PUSH 10 mg Q1H PRN Administration CIWA > 15 Diltiazem HCl 60 mg 07/20/25 12:00 07/22/25 06:06 Diltiazem Hcl 60 Mg Tablet PO 60 mg Q6HR MIGUEL A Administration Enoxaparin Sodium 65 mg 07/16/25 09:00 07/22/25 10:41 Enoxaparin 80 Mg/0.8 Ml Syringe SUB-Q Not Given Q12HR MIGUEL A Folic Acid 1 mg 07/20/25 09:00 07/22/25 10:40 Folic Acid 1 Mg Tablet PO 1 mg DAILY MIGUEL A Administration Glucagon 1 mg 07/16/25 08:21 Glucagon For Inj 1 Mg Vial IM PRN PRN Hypoglycemia Protocol Glucose 15 gm 07/16/25 08:21 Glucose Oral Gel 15 Gm Of Glucse In 37.5 Gm Tube PO PRN PRN Hypoglycemia Protocol Dextrose 1,000 mls @ 100 mls/hr 07/16/25 08:21 Dextrose 5% 1,000 Ml IVPB PRN PRN Hypoglycemia Protocol Sodium Chloride 1,000 mls @ 75 mls/hr 07/22/25 09:05 07/22/25 10:40 Normal Saline Iv IV CONT 75 mls/hr .[id number] MIGUEL A Administration Insulin Aspart 2 - 5 units 07/20/25 12:00 07/22/25 10:41 Insulin Aspart (*Bkc) 100 Units/Ml SUB-Q Not Given TIDWM MIGUEL A Protocol Insulin Aspart 1 - 2 units 07/20/25 21:00 07/21/25 20:50 Insulin Aspart (*Bkc) 100 Units/Ml SUB-Q 1 units HS MIGUEL A Administration Protocol Labetalol HCl 20 mg 07/19/25 13:07 07/20/25 17:13 Labetalol Hcl Inj 100 Mg/20 Ml Vial IV PUSH 20 mg Q4H PRN Administration SBP > 160 and HR> 60 -1st choice Lorazepam 1 mg 07/20/25 08:04 07/21/25 20:52 Lorazepam (*Crx) 1 Mg Tablet PO 1 mg Q4H PRN Administration CIWA Score 8-10 Melatonin 5 mg 07/20/25 21:00 07/21/25 20:52 Melatonin 5 Mg Tablet PO 5 mg HS MIGUEL A Administration Methylprednisolone Sodium Succinate 60 mg 07/19/25 09:00 07/22/25 10:40 Methylprednisolone Sod Succ 125 Mg Vial IV PUSH 60 mg QAM MIGUEL A Administration Metoprolol Tartrate 5 mg 07/19/25 13:07 Metoprolol Tartrate Inj 5 Mg/5 Ml Vial IV PUSH Q2H PRN Heart rate more than 120 Multi-Ingred Cream/Lotion/Oil/Oint 1 applic 07/16/25 21:00 07/22/25 10:40 Mineral Oil/White Petrolatum Ointment EACH EYE Not Given Q12HR MIGUEL A Nitrofurantoin Macrocrystals 100 mg 07/20/25 10:05 07/22/25 10:40 Nitrofurantoin Monohyd Macrocr 100 Mg Cap PO 100 mg Q12HR MIGUEL A Administration Ondansetron HCl 4 mg 07/20/25 10:37 Ondansetron Inj 4 Mg/2 Ml Vial IV PUSH Q4H PRN Nausea And Vomiting Pantoprazole Sodium 40 mg 07/16/25 09:00 07/22/25 10:40 Pantoprazole Sodium Iv 40 Mg Vial IV PUSH 40 mg QAM MIGUEL A Administration Thiamine HCl 100 mg 07/20/25 09:00 07/22/25 10:40 Thiamine Hcl 100 Mg Tablet PO 100 mg QAM MIGUEL A Administration Radiology Results: ITS Impressions Chest CTA 07/16/25 08:43 IMPRESSION: 1. No pulmonary embolus. 2. Moderate-sized left pneumothorax. 3. Mild pulmonary edema. 4. Left lung upper lobe nodules, which may be infection or less likely metastatic disease. 5. Moderate emphysema. Labs Labs: Laboratory Results - last 24 hr 07/21/25 07/21/25 07/21/25 12:37 16:36 20:08 WBC RBC Hgb Hct MCV MCH MCHC RDW Plt Count MPV Immature Gran % (Auto) Neut % (Auto) Lymph % (Auto) [place] % (Auto) Eos % (Auto) Baso % (Auto) Lymph # (Auto) [place] # (Auto) Eos # (Auto) Baso # (Auto) Abs Immat Gran (auto) Absolute Neuts (auto) Absolute Nucleated RBC Nucleated RBC % Sodium Potassium Chloride Carbon Dioxide Anion Gap BUN Creatinine Estim Creat Clear Calc Estimated GFR Glucose POC Capillary Glucose 227 H 183 H 238 H Calcium Total Bilirubin AST ALT Alkaline Phosphatase Total Protein Albumin 07/22/25 07/22/25 03:56 07:19 WBC 14.7 H RBC 5.52 Hgb 16.3 Hct 48.9 MCV 88.6 MCH 29.5 MCHC 33.3 RDW 15.9 H Plt Count 231 MPV 9.7 Immature Gran % (Auto) 1.6 H Neut % (Auto) 71.5 Lymph % (Auto) 12.9 L [place] % (Auto) 13.5 H Eos % (Auto) 0.1 Baso % (Auto) 0.4 Lymph # (Auto) 1.90 [place] # (Auto) 2.0 H Eos # (Auto) 0.0 Baso # (Auto) 0.1 Abs Immat Gran (auto) 0.23 H Absolute Neuts (auto) 10.5 H Absolute Nucleated RBC 0.000 Nucleated RBC % 0.0 Sodium 132 L Potassium 4.3 Chloride 98 Carbon Dioxide 28 Anion Gap 6 BUN 30 H Creatinine 0.74 Estim Creat Clear Calc 70 Estimated GFR > 60 Glucose 127 H POC Capillary Glucose 108 H Calcium 8.5 Total Bilirubin 1.1 AST 33 ALT 34 Alkaline Phosphatase 59 Total Protein 7.3 Albumin 4.0
[2025-07-22] MEDS: METOPROLOL TARTRATE 25 MG TABLET PO (13:19)
--- NOTE | 2025-07-22 13:30 | PC.NURSE ---
Resting in bed respirations slightly labored, RR 32, O2 95% on RA, pursed lip breathing with exhilation. HR 130s. Attempted to sit on side of bed. HR momentarily 170. Became red and clammy. Dr. Jaimes made aware. STAT CXR ordered.
--- NOTE | 2025-07-22 14:02 | PCOTNOTE ---
Pt unable to be seen for evaluation this date per RN. Difficulties with breathing and heart rate. Will continue to follow.
[2025-07-22] MEDS: FLUTICASONE/UMECLIDIN/VILANTER 100-62.5-25 MCG ELLIPTA 1 PUFF INHALATION (14:03)
--- NOTE | 2025-07-22 14:35 | PM.IMPN ---
Progress Note: A&P Assessment and Plan (1) Respiratory failure with hypoxia and hypercapnia: Qualifiers: Chronicity: acute Qualified Code(s): J96.01 - Acute respiratory failure with hypoxia; J96.02 - Acute respiratory failure with hypercapnia Code(s): J96.91 - Respiratory failure, unspecified with hypoxia; J96.92 - Respiratory failure, unspecified with hypercapnia Status: Acute Assessment and Plan: Multifactorial acute on chronic respiratory failure secondary to acute exacerbation of COPD, left pneumothorax and AFib with RVR Vent settings reviewed and I have decreased the tidal volume to 420 and rate to 18 Left pneumothorax Status post chest tube placement which is clamped and there is no air leak at this time Empiric Rocephin for COPD exacerbation. No significant consolidation on infiltrates on the CT scan to suggest pneumonia. Negative blood cultures till now Viral panel was negative CT scan and chest x-ray reviewed Sedated with fentanyl and propofol at this time. At [facility] 07/18 sedation holiday was performed to evaluate patient for weaning trial. Patient became tachypneic with respiratory rate in high 30s with increased respiratory distress and work of breathing. Patient was diaphoretic. Sedation holiday was aborted and patient was placed back on sedation. Patient never went on PSV 07/19 weaning trial was done. Patient was extubated. 07/20 patient has done well and is on nasal cannula. Continue BiPAP p.r.n. Continue steroids and bronchodilators 07/21 patient fully awake and alert, on room air without respiratory distress 07/22 Patient had chest tube removed by surgery, with onset of pursed lip breathing, tachycardia, tachypnea. When asked if there is history of COPD as CXR from prior admission showed emphysema, he confirmed and said he takes trelegy ellipta and albuterol prn. Trelegy has been started for patient, with duonebs prn with caution due to tachycardia. CXR repeated now given symptoms to evaluate respiratory symptoms with reaccumulation of small left pneumothorax after removal of chest tube and confirmation of emphysema. The patient says he needs to go home to take care of his mother as she is alone and has dementia. He insists on discharge however given today's developments he is not stable to do so. He was told he can leave AMA if he wishes to however it is not recommended given deterioration of his clinical status today. (2) Acute exacerbation of chronic obstructive pulmonary disease: Code(s): J44.1 - Chronic obstructive pulmonary disease with (acute) exacerbation Status: Acute Assessment and Plan: See above (3) Pneumothorax, left: Code(s): J93.9 - Pneumothorax, unspecified Status: Acute Assessment and Plan: Patient is now extubated. No air leak. Chest x-ray shows no or residual pneumothorax. Surgery on board, chest tube is clamped, could be for discontinuation today, will follow with surgery recommendations (4) Alcohol abuse: Code(s): F10.10 - Alcohol abuse, uncomplicated Status: Acute Assessment and Plan: 07/21 CIWA was 18 today, patient was tachycardic, anxious, diaphoretic, received dose of Librium with improvement to CIWA 5 with improvement of these symptom CIWA monitoring ordered Continue thiamine and folic acid P.r.n. benzodiazepine ordered as per CIWA score Wean off Precedex drip s. (5) Hypertension: Code(s): I10 - Essential (primary) hypertension Status: Acute Assessment and Plan: Increase p.o. Cardizem (6) Atrial fibrillation with rapid ventricular response: Code(s): I48.91 - Unspecified atrial fibrillation Status: Acute Assessment and Plan: AFib with RVR. Still present and occurring on the floor. EchoSummary 1. Left ventricular chamber dimension is normal. 2. Left ventricular systolic function is normal, estimated at 50-55%. 3. There is moderately increased left ventricular wall thickness. 4. Right ventricular systolic function is normal. 5. Left atrial chamber dimension is severely enlarged. 6. Right atrial chamber dimension is moderately enlarged. 7. There is moderate to severe mitral valve regurgitation. 8. There is mild tricuspid valve regurgitation. 9. Pulmonary hypertension, estimated pulmonary arterial systolic pressure is 45 mmHg. Continue Lovenox. Diltiazem has been switched to metoprolol 25 mg b.i.d. Cardiology has been consulted (7) Cardiomyopathy: Qualifiers: Cardiomyopathy type: unspecified Qualified Code(s): I42.9 - Cardiomyopathy, unspecified Code(s): I42.9 - Cardiomyopathy, unspecified Status: Acute Assessment and Plan: Echocardiogram as below (8) Electrolyte abnormality: Code(s): E87.8 - Other disorders of electrolyte and fluid balance, not elsewhere classified Status: Acute Assessment and Plan: Calcium replacement ordered (9) Hyperglycemia: Code(s): R73.9 - Hyperglycemia, unspecified Status: Acute Assessment and Plan: Continue sliding scale insulin. DC Lantus (10) Sepsis: Qualifiers: Sepsis type: sepsis due to unspecified organism Sepsis acute organ dysfunction status: without acute organ dysfunction Qualified Code(s): A41.9 - Sepsis, unspecified organism Code(s): A41.9 - Sepsis, unspecified organism Status: Acute Assessment and Plan: Secondary to UTI Urine culture is growing Klebsiella which is resistant to Rocephin Add Macrobid QQ bleed take Rocephin course for COPD exacerbation today History of Proteus UTI which was sensitive to Rocephin (11) UTI (urinary tract infection): Code(s): N39.0 - Urinary tract infection, site not specified Status: Acute Assessment and Plan: Cultures growing Klebsiella. Klebsiella is resistant to ceftriaxone I will start Macrobid p.o. Plan The patient says he needs to go home to take care of his mother as she is alone and has dementia. He insists on discharge however given today's developments he is not stable to do so. He was told he can leave AMA if he wishes to however it is not recommended given deterioration of his clinical status today. DVT prophylaxis -continue Lovenox therapeutic dose Stress ulcer prophylaxis -PPI Nutrition -advance diet as tolerated Code Status - Full Code Subjective Date/time seen: 07/22/25 14:35 Interval history: 65-year-old male with PMH BPH, tobacco use disorder, alcohol abuse, fentanyl abuse, AFib on Xarelto and metoprolol but noncompliant, cardiomyopathy, history of UTI, hypertension, presenting to [facility] on 07/15/2025 complaining of shortness of breath. Apparently he had called EMS several times in the past few days for similar symptom but refused to be transferred to the hospital. EMS finally transferred him and the patient was tripoding with O2 saturation 70% on room air., in the ER he received albuterol, ipratropium, magnesium, Solu-Medrol, placed on BiPAP with significant improvement. Patient noted to be in AFib with RVR with heart rate 150-180. He was ready to check out of the ER in spite of being told to stay. Patient also thought he was going through opiate and alcohol withdrawal. IV buprenorphine administered. Patient given diltiazem 25 mg IV x1, eventually placed on 5 milligram/hour GTT due to refractory RVR. Given 1 L lactated Ringer bolus. Then, patient began to deteriorate reporting severe shortness of breath. Wheezing. He ripped off his BiPAP. Patient was given Versed IV for some anxiolysis but that did not work. Patient given IM epinephrine as he was wheezing. Started on heparin GTT for AFib. Patient was then intubated for respiratory failure. A left-sided subclavian central venous catheter failed x2 with kinking of the wire, afterwards a left IJ successfully placed under ultrasound guidance. X-ray confirmed placement of central line, ET tube, OG tube. Stat CTA ordered to rule out thromboembolic event. Patient started on Versed drip. Vent settings at 16, 400, 100 FiO2, peep 5. ABG shortly after demonstrated pH 7.00, pCO2 100, tidal volume increased to 500. Repeat ABG pending. PO2 489.5, FiO2 being weaned down. Otherwise is initial labs demonstrate white count 14.7, hemoglobin 13.9, platelets 209, sodium 136, BUN 19, serum creatinine 0.72, AST 73, troponin 0.022. The CT chest above did demonstrate left-sided pneumothorax. The ER physician and myself reviewed this. Patient also has emphysematous blebs. Official radiology interpretation pending. No PE apparent. Pulmonary edema or consolidations apparent. The patient was still saturating well on 100% FiO2 and hemodynamically stable on the vent. ER physician placed 28 Bulgarian chest tube on left side, revealing decompression on repeat imaging. General surgery consulted for management of chest tube. Outside Sales Inspector consulted. Advised to start Levaquin empirically. While on max dose Versed 10 mg per hour patient has a RASS of 1-2. Fentanyl 50 mcg per hour started. Patient responded to ketamine well during rapid sequence induction, was given another dose by ER physician as he began to thrash. Blood pressure 96/60, second liter of isotonic fluid bolus being infused. Diltiazem GTT then stop due to improvement of heart rate and improvement of underlying process. Urinary catheter placed. Review of Systems Review of Systems: All systems reviewed & are unremarkable except as noted in HPI and below Exam Const: General: cooperative, comfortable, no acute distress and ill appearing Resp: Auscultation: diminished lung sounds Other: chest tube out Cardio: Rate: regular rate Rhythm: regular rhythm GI: Inspection: normal to inspection Objective Data Vital Signs Vital Signs: Vital Signs - 24 hr 07/21/25 16:00 07/21/25 16:00 07/21/25 16:00 Temperature 98.2 F Pulse Rate 100 Pulse Rate [Bilateral Pedal (Dorsalis Pedis) Palpation] 113 H Respiratory Rate 24 H Blood Pressure 150/100 H Pulse Oximetry 97 97 Oxygen Delivery Room Air 07/21/25 16:00 07/21/25 18:00 07/21/25 20:00 Temperature 98.9 F Pulse Rate 113 H 105 H 106 H Pulse Rate [Bilateral Pedal (Dorsalis Pedis) Palpation] Respiratory Rate 15 Blood Pressure 144/89 H Pulse Oximetry 97 Oxygen Delivery 07/21/25 20:00 07/21/25 22:00 07/22/25 00:00 Temperature 98.2 F Pulse Rate 105 H 100 87 Pulse Rate [Bilateral Pedal (Dorsalis Pedis) Palpation] Respiratory Rate 18 Blood Pressure 151/97 H Pulse Oximetry 98 Oxygen Delivery 07/22/25 00:00 07/22/25 02:00 07/22/25 04:00 Temperature Pulse Rate 96 129 H 105 H Pulse Rate [Bilateral Pedal (Dorsalis Pedis) Palpation] Respiratory Rate Blood Pressure Pulse Oximetry Oxygen Delivery 07/22/25 04:00 07/22/25 06:00 07/22/25 06:08 Temperature 98.5 F Pulse Rate 111 H 113 H Pulse Rate [Bilateral Pedal (Dorsalis Pedis) Palpation] Respiratory Rate 20 Blood Pressure 160/111 H 160/107 H Pulse Oximetry 96 Oxygen Delivery 07/22/25 08:00 07/22/25 08:00 07/22/25 10:00 Temperature 98.3 F Pulse Rate 101 H 108 H 104 H Pulse Rate [Bilateral Pedal (Dorsalis Pedis) Palpation] Respiratory Rate 22 H Blood Pressure 160/99 H Pulse Oximetry 96 Oxygen Delivery 07/22/25 11:23 07/22/25 12:00 07/22/25 12:00 Temperature 97.9 F Pulse Rate 92 Pulse Rate [Bilateral Pedal (Dorsalis Pedis) Palpation] 119 H Respiratory Rate 22 H Blood Pressure 177/96 H Pulse Oximetry 94 97 Oxygen Delivery Room Air 07/22/25 13:19 Temperature Pulse Rate 99 Pulse Rate [Bilateral Pedal (Dorsalis Pedis) Palpation] Respiratory Rate Blood Pressure Pulse Oximetry Oxygen Delivery Intake/Output Intake/Output: Intake & Output 07/19/25 07/20/25 07/21/25 07/22/25 23:59 23:59 23:59 23:59 Intake Total 1585.8 328.6 2068 684 Output Total 2590 2225 1570 1315 Balance -1004.2 -1896.4 224 -531 Meds/Results Medications: Active Medications Generic Name Dose Route Start Last Admin Trade Name Freq PRN Reason Stop Dose Admin Al Hydrox/Mg Hydrox/Simethicone 30 ml 07/19/25 21:05 07/20/25 23:15 Mag Hydrox/Al Hydrox/Simeth 30 Ml Udc PO 30 ml Q6H PRN Administration Indigestion Albuterol/Ipratropium 3 ml 07/16/25 08:21 07/19/25 23:48 Ipratropium 0.5 Mg/Albuterol Sulfate 2.5 Mg (Base) Ampul.Neb 3 Ml INHALATION 3 ml Q6HRT PRN Administration Wheezing Dextrose 12.5 gm 07/16/25 08:21 Dextrose 50% 25 Gm/50 Ml Syringe IV PUSH PRN PRN Hypoglycemia Protocol Diazepam 5 mg 07/20/25 08:06 07/20/25 23:15 Diazepam Inj (*Crx) 10 Mg/2 Ml Syringe IV PUSH 5 mg Q2H PRN Administration CIWA 11-15 Diazepam 10 mg 07/20/25 08:06 07/21/25 08:29 Diazepam Inj (*Crx) 10 Mg/2 Ml Syringe IV PUSH 10 mg Q1H PRN Administration CIWA > 15 Enoxaparin Sodium 65 mg 07/16/25 09:00 07/22/25 10:41 Enoxaparin 80 Mg/0.8 Ml Syringe SUB-Q Not Given Q12HR MIGUEL A Fluticasone/Umeclidinium/Vilanterol 1 puff 07/22/25 13:55 07/22/25 14:03 Fluticasone/Umeclidin/Vilanter 100-62.5-25 Mcg Ellipta INHALATION 1 puff DAILYRT MIGUEL A Administration Folic Acid 1 mg 07/20/25 09:00 07/22/25 10:40 Folic Acid 1 Mg Tablet PO 1 mg DAILY MIGUEL A Administration Glucagon 1 mg 07/16/25 08:21 Glucagon For Inj 1 Mg Vial IM PRN PRN Hypoglycemia Protocol Glucose 15 gm 07/16/25 08:21 Glucose Oral Gel 15 Gm Of Glucse In 37.5 Gm Tube PO PRN PRN Hypoglycemia Protocol Dextrose 1,000 mls @ 100 mls/hr 07/16/25 08:21 Dextrose 5% 1,000 Ml IVPB PRN PRN Hypoglycemia Protocol Sodium Chloride 1,000 mls @ 75 mls/hr 07/22/25 09:05 07/22/25 10:40 Normal Saline Iv IV CONT 75 mls/hr .[id number] MIGUEL A Administration Insulin Aspart 2 - 5 units 07/20/25 12:00 07/22/25 13:18 Insulin Aspart (*Bkc) 100 Units/Ml SUB-Q Not Given TIDWM MIGUEL A Protocol Insulin Aspart 1 - 2 units 07/20/25 21:00 07/21/25 20:50 Insulin Aspart (*Bkc) 100 Units/Ml SUB-Q 1 units HS MIGUEL A Administration Protocol Labetalol HCl 20 mg 07/19/25 13:07 07/20/25 17:13 Labetalol Hcl Inj 100 Mg/20 Ml Vial IV PUSH 20 mg Q4H PRN Administration SBP > 160 and HR> 60 -1st choice Lisinopril 5 mg 07/22/25 13:00 07/22/25 13:19 Lisinopril 5 Mg Tablet PO 5 mg QAM MIGUEL A Administration Lorazepam 1 mg 07/20/25 08:04 07/21/25 20:52 Lorazepam (*Crx) 1 Mg Tablet PO 1 mg Q4H PRN Administration CIWA Score 8-10 Melatonin 5 mg 07/20/25 21:00 07/21/25 20:52 Melatonin 5 Mg Tablet PO 5 mg HS MIGUEL A Administration Methylprednisolone Sodium Succinate 60 mg 07/19/25 09:00 07/22/25 10:40 Methylprednisolone Sod Succ 125 Mg Vial IV PUSH 60 mg QAM MIGUEL A Administration Metoprolol Tartrate 5 mg 07/19/25 13:07 Metoprolol Tartrate Inj 5 Mg/5 Ml Vial IV PUSH Q2H PRN Heart rate more than 120 Metoprolol Tartrate 25 mg 07/22/25 12:15 07/22/25 13:19 Metoprolol Tartrate 25 Mg Tablet PO 25 mg Q12HR MIGUEL A Administration Multi-Ingred Cream/Lotion/Oil/Oint 1 applic 07/16/25 21:00 07/22/25 10:40 Mineral Oil/White Petrolatum Ointment EACH EYE Not Given Q12HR MIGUEL A Nitrofurantoin Macrocrystals 100 mg 07/20/25 10:05 07/22/25 10:40 Nitrofurantoin Monohyd Macrocr 100 Mg Cap PO 100 mg Q12HR MIGUEL A Administration Ondansetron HCl 4 mg 07/20/25 10:37 Ondansetron Inj 4 Mg/2 Ml Vial IV PUSH Q4H PRN Nausea And Vomiting Pantoprazole Sodium 40 mg 07/16/25 09:00 07/22/25 10:40 Pantoprazole Sodium Iv 40 Mg Vial IV PUSH 40 mg QAM MIGUEL A Administration Thiamine HCl 100 mg 07/20/25 09:00 07/22/25 10:40 Thiamine Hcl 100 Mg Tablet PO 100 mg QAM MIGUEL A Administration Radiology Results: ITS Impressions Chest CTA 07/16/25 08:43 IMPRESSION: 1. No pulmonary embolus. 2. Moderate-sized left pneumothorax. 3. Mild pulmonary edema. 4. Left lung upper lobe nodules, which may be infection or less likely metastatic disease. 5. Moderate emphysema. Chest X-Ray 07/22/25 13:52 IMPRESSION: 1. Reaccumulation of a small left pneumothorax post left chest tube removal. 2. Emphysema. Labs Labs: Laboratory Results - last 24 hr 07/21/25 07/21/25 07/22/25 16:36 20:08 03:56 WBC 14.7 H RBC 5.52 Hgb 16.3 Hct 48.9 MCV 88.6 MCH 29.5 MCHC 33.3 RDW 15.9 H Plt Count 231 MPV 9.7 Immature Gran % (Auto) 1.6 H Neut % (Auto) 71.5 Lymph % (Auto) 12.9 L [place] % (Auto) 13.5 H Eos % (Auto) 0.1 Baso % (Auto) 0.4 Lymph # (Auto) 1.90 [place] # (Auto) 2.0 H Eos # (Auto) 0.0 Baso # (Auto) 0.1 Abs Immat Gran (auto) 0.23 H Absolute Neuts (auto) 10.5 H Absolute Nucleated RBC 0.000 Nucleated RBC % 0.0 Sodium 132 L Potassium 4.3 Chloride 98 Carbon Dioxide 28 Anion Gap 6 BUN 30 H Creatinine 0.74 Estim Creat Clear Calc 70 Estimated GFR > 60 Glucose 127 H POC Capillary Glucose 183 H 238 H Calcium 8.5 Total Bilirubin 1.1 AST 33 ALT 34 Alkaline Phosphatase 59 Total Protein 7.3 Albumin 4.0 07/22/25 07/22/25 07:19 11:53 WBC RBC Hgb Hct MCV MCH MCHC RDW Plt Count MPV Immature Gran % (Auto) Neut % (Auto) Lymph % (Auto) [place] % (Auto) Eos % (Auto) Baso % (Auto) Lymph # (Auto) [place] # (Auto) Eos # (Auto) Baso # (Auto) Abs Immat Gran (auto) Absolute Neuts (auto) Absolute Nucleated RBC Nucleated RBC % Sodium Potassium Chloride Carbon Dioxide Anion Gap BUN Creatinine Estim Creat Clear Calc Estimated GFR Glucose POC Capillary Glucose 108 H 174 H Calcium Total Bilirubin AST ALT Alkaline Phosphatase Total Protein Albumin Hospitalist MIPS Advance Care Plan I have confirmed that the patient's Advanced Care Plan is present, code status is documented, or surrogate decision maker is listed in patient medical record.: Yes Medication Reconciliation I have utilized all available resources to obtain, update and review the patients current medications (includes all prescriptions, OTC, herbals, cannabis, and nutritional supplements).: Yes
--- NOTE | 2025-07-22 15:00 | PC.NURSE ---
CXR reviewed with Dr. Jaimes. Advised to have pt continue incentive spirometry. Will continue to monitor with serial CXRs.
--- NOTE | 2025-07-22 16:50 | P.CONCA_ITS ---
Assessment and Plan Assessment and plan (1) Atrial fibrillation with rapid ventricular response: Code(s): I48.91 - Unspecified atrial fibrillation Status: Acute Assessment and Plan: Heart rate is better with oral metoprolol the still above goal. Will increase metoprolol tartrate to 50 mg p.o. b.i.d.. This will also help his blood pressure. I did talk to the patient. Despite polysubstance use, he states that he does not use cocaine, amphetamine or crack. Beta selective beta aki therefore will be used to assist with rate control. Xarelto should also be started 20 mg daily. Enoxaparin will be stopped (2) Hypertension: Code(s): I10 - Essential (primary) hypertension Status: Acute Assessment and Plan: Lisinopril started today. Up titrate as need be. (3) Polysubstance abuse: Code(s): F19.10 - Other psychoactive substance abuse, uncomplicated Status: Chronic Assessment and Plan: Fentanyl use. Counseling performed (4) Alcohol abuse: Code(s): F10.10 - Alcohol abuse, uncomplicated Status: Acute Assessment and Plan: Consult performed (5) COPD (chronic obstructive pulmonary disease): Qualifiers: COPD type: emphysema Emphysema type: unspecified Qualified Code(s): J 43.9 - Emphysema, unspecified Code(s): J44.9 - Chronic obstructive pulmonary disease, unspecified Status: Chronic Assessment and Plan: Significant COPD history with pulmonary hypertension noted. Pulmonary hypertension likely secondary to underlying lung disease. (6) Tobacco abuse disorder: Code(s): Z72.0 - Tobacco use Status: Acute Assessment and Plan: Ongoing. Tobacco abuse counseling also performed. History of Present Illness History of Present Illness Consult date/time: 07/22/25 16:50 Requesting physician: James June Oca, MD Consult reason: atrial fibrillation Reason For Visit: COPD exacerbation, AFib RVR, emphysematous bleb Narrative: Date of service 07/22/2025 Reason for consultation: Atrial fibrillation Requesting provider: Dr. Lex madison Oca History: Patient 65-year-old male with a history of noncompliance, tobacco abuse, alcohol abuse, fentanyl abuse and history of atrial fibrillation who has been prescribed metoprolol and Xarelto but he admits that he is not compliant with taking these medications. He also has history of cardiomyopathy hypertension. Came to the hospital complaining of shortness of breath on 07/15/2025. He was treated for a COPD exacerbation, had deterioration shortness of breath intubated. Had a subclavian line placed unfortunately complicated by a left-sided pneumothorax. Had a chest tube. Treated with antibiotics and eventually extubated. Did have atrial fibrillation with rapid ventricular response and was given a diltiazem drip. He was transferred out to IMU. Today he was found to have intermittent AFib with RVR. Was given 1 dose of oral metoprolol which has helped his heart rate. Wants to go home. Has intermittent shortness of breath. Has no chest pain except for were chest tube site was placed. Does not feel palpitations, paroxysmal nocturnal dyspnea, orthopnea. Review of Systems 2 Review of Systems: All systems reviewed & are unremarkable except as noted in HPI and below Constitutional: Constitutional: Denies body ache(s) Eyes: Eyes: Denies blurry vision ENT: Reports Normal hearing present Cardiovascular: Cardiovascular: Denies leg edema Respiratory: Respiratory: Reports dyspnea Gastrointestinal: Gastrointestinal: Denies abdominal pain Genitourinary: Genitourinary: Denies hematuria Musculoskeletal: Musculoskeletal: Denies arthralgias Integumentary/Breasts: Skin/Breast: Denies dry skin Neurologic: Denies headache(s) Psychiatric: Psychiatric: Denies behavioral changes Endocrine: Endocrine: Denies excessive sweating Hematologic/Lymphatic: Hematologic/Lymphatic: Denies easy bleeding Allergic/Immunologic: Allergic/Immunologic: Denies GI upset with certain foods PMFSH Past Medical History Medical History BPH (benign prostatic hyperplasia) Tobacco abuse disorder Cardiomyopathy Mitral regurgitation Opioid abuse Alcohol abuse Atrial fibrillation COPD (chronic obstructive pulmonary disease) Surgical History Surgical History History of hernia surgery Family History Family History Father Diabetes mellitus Hypertension Acute myocardial infarction Sibling Family history of alcoholism Mother Dementia Social History Social History Social History: The patient lives with his mother. 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 He smoked a pack of cigarettes per day since he was a teenager. He has had difficulty with alcohol dependence since he was young. He reports that he was in recovery for 20 years but started drinking again within the last year. He reports that he was on Suboxone but her started using fentanyl again October 2024. Code status: Full code Surrogate decision maker: Mother Smoking packs per day: 1 Smoking cigarettes per day: 20.0 Years smoked: 20 Smoking pack-years: 20.00 Smoking status: Heavy tobacco smoker Tobacco type: cigarettes Alcohol intake: current Drinks per week: 119 Substance use: current Substance use type: other Other substance usage details: fentanyl Last use: 07/15/2025 Do You Feel Safe in your Home?: Yes Lack of Transportation: No Lack of Food: Never True Current Housing: I Have Housing Concerned About Future Housing: No Difficulty Paying Gas/Electric Bills: No Difficulty Paying for Meds: No Currently Unemployed: No Education: High School Diploma/GED Difficulty w/ Childcare or Family Care: No Spiritual care concerns: No Meds Home Medications and Allergies Home Medications ?Medication ?Instructions ?Recorded ?Confirmed ?Type No Home Medications 07/16/25 07/16/25 H istory Allergies Allergy/AdvReac Type Severity Reaction Status Date / Time latex Allergy Unknown Hives Verified 07/16/25 01:26 FABRIC NORMALIZER Vital Signs Vital Signs - 24 hr 07/21/25 18:00 07/21/25 20:00 07/21/25 20:00 Temperature 37.2 C Pulse Rate 105 H 106 H 105 H Pulse Rate [Bilateral Pedal (Dorsalis Pedis) Palpation] Respiratory Rate 15 Blood Pressure 144/89 H Pulse Oximetry 97 Oxygen Delivery 07/21/25 22:00 07/22/25 00:00 07/22/25 00:00 Temperature 36.8 C Pulse Rate 100 87 96 Pulse Rate [Bilateral Pedal (Dorsalis Pedis) Palpation] Respiratory Rate 18 Blood Pressure 151/97 H Pulse Oximetry 98 Oxygen Delivery 07/22/25 02:00 07/22/25 04:00 07/22/25 04:00 Temperature 36.9 C Pulse Rate 129 H 105 H 111 H Pulse Rate [Bilateral Pedal (Dorsalis Pedis) Palpation] Respiratory Rate 20 Blood Pressure 160/111 H Pulse Oximetry 96 Oxygen Delivery 07/22/25 06:00 07/22/25 06:08 07/22/25 08:00 Temperature 36.8 C Pulse Rate 113 H 101 H Pulse Rate [Bilateral Pedal (Dorsalis Pedis) Palpation] Respiratory Rate 22 H Blood Pressure 160/107 H 160/99 H Pulse Oximetry 96 Oxygen Delivery 07/22/25 08:00 07/22/25 10:00 07/22/25 11:23 Temperature Pulse Rate 108 H 104 H Pulse Rate [Bilateral Pedal (Dorsalis Pedis) Palpation] Respiratory Rate Blood Pressure Pulse Oximetry 94 Oxygen Delivery Room Air 07/22/25 12:00 07/22/25 12:00 07/22/25 13:19 Temperature 36.6 C Pulse Rate 92 99 Pulse Rate [Bilateral Pedal (Dorsalis Pedis) Palpation] 119 H Respiratory Rate 22 H Blood Pressure 177/96 H Pulse Oximetry 97 Oxygen Delivery 07/22/25 16:00 Temperature 36.6 C Pulse Rate 55 L Pulse Rate [Bilateral Pedal (Dorsalis Pedis) Palpation] Respiratory Rate 22 H Blood Pressure 170/109 H Pulse Oximetry 96 Oxygen Delivery Exam 2 Narrative: Appears older than stated age. Appears unkempt Const: General: comfortable and no acute distress HENMT: Ears: TM's normal bilaterally Face/Nose/Sinus: Normal nares present Eyes: General: appearance normal, both eyes and all related structures S clera: sclerae normal Neck: Neck: supple and no JVD Chest: Other: No reproducible chest wall pain to palpation Resp: Effort & Inspection: normal respiratory effort Auscultation: d iminished lung sounds Cardio: Rate: tachycardic Rhythm: abnormal rhythm irregularly irregular GI: Inspection: non-distended GI Palp: Yes Soft to palpation Skin: General skin exam: normal color Neuro: Speech: normal speech Extrem: General: normal to inspection and no edema Psych: Mental Status: mental status grossly normal Results Labs and Meds 07/22/25 03:56 07/22/25 03:56 Lab results: Cardiac Enzymes 07/22/25 Range/Units 03:56 AST 33 (17-59) U/L CBC 07/22/25 Range/Units 03:56 WBC 14.7 H (4.5-10.0) K/mm3 RBC 5.52 (4.6-6.20) M/mm3 Hgb 16.3 (14.0-18.0) g/dL Hct 48.9 (42.0-52.0) % Plt Count 231 (150-375) k/mm3 Lymph # (Auto) 1.90 (0.9-3.2) K/mm3 [place] # (Auto) 2.0 H (0.1-0.6) K/mm3 Eos # (Auto) 0.0 (0-0.3) K/mm3 Baso # (Auto) 0.1 (0.0-0.1) K/mm3 Comprehensive Metabolic Panel 07/22/25 Range/Units 03:56 Sodium 132 L (137-145) mmol/L Potassium 4.3 (3.4-5.0) mmol/L Chloride 98 (98-107) mmol/L Carbon Dioxide 28 (22-30) mmol/L BUN 30 H (9-20) mg/dL Creatinine 0.74 (0.7-1.3) mg/dL Glucose 127 H (65-110) mg/dL Calcium 8.5 (8.4-10.2) mg/dL AST 33 (17-59) U/L ALT 34 (6-50) U/L Alkaline Phosphatase 59 (38-126) U/L Total Protein 7.3 (6.3-8.2) g/dL Albumin 4.0 (3.5-5.1) g/dL Intake and Output 07/22/25 07/22/25 07/22/25 07:59 15:59 23:59 Intake Total 444 560 Output Total 1315 Balance -871 560 Intake: Oral 444 560 Output: Urine 1275 Chest Tube Drainage 40 Left Mid-Axillary Chest 40 Other: Number of Bowel Movements Today 0 Patient Weight 07/22/25 23:59 Weight 58.8 kg EKG personally reviewed and independently interpreted showing atrial fibrillation with rapid ventricular response. Echocardiogram: . Left ventricular systolic function is normal, estimated at 50-55. 3. The mid anterior wall is hypokinetic. 4. Left atrial chamber dimension is mildly enlarged. 5. Right atrial chamber dimension is mildly enlarged. 6. There is mild to moderate mitral valve regurgitation. 7. There is mild to moderate tricuspid valve regurgitation. 8. Severe pulmonary hypertension, estimated pulmonary arterial systolic pressure is 55 mmHg.
--- NOTE | 2025-07-22 17:55 | PC.NURSE ---
BP 170s/90s discussed with Dr. Oro. Metoprolol increased to 50 mg. Hold on giving Labetalol at this time. Will recheck BP after first dose of increased Metoprolol.
[2025-07-22] MEDS: INSULIN ASPART (*BKC) 100 UNITS/ML SUB-Q ×2 (18:06→21:09)
[2025-07-22] MEDS: MELATONIN 5 MG TABLET PO (21:06)
[2025-07-22] MEDS: METOPROLOL TARTRATE 50 MG TAB PO (21:07)
[2025-07-23] VITALS (14 sets, daily range): BP systolic 149–169; BP diastolic 95–122; PULSE 86–116; RESP 16–18; TEMP 36.6–36.9; O2SAT 94–100
[2025-07-23] MEDS: NICOTINE (*PBKC) 14 MG PATCH 1 PATCH TRANSDERM ×2 (02:00→14:10)
[2025-07-23 04:18] LABS: Hematocrit 46.9 % (42.0-52.0); Hemoglobin 15.7 g/dL (14.0-18.0); Immature Granulocyte Percent A 1.9 % (0-0.5); Lymphocytes Absolute Auto 1.76 K/mm3 (0.9-3.2); Mean Corpuscular HGB Conc 33.5 g/dl (32-36); Mean Corpuscular Hemoglobin 29.8 pg (26-34); Mean Corpuscular Volume 89.2 fl (80-100); Nucleated Red Blood Cells Absolute Auto 0.000 K/mm3 (0.0-0.012); Nucleated Red Blood Cells Perc 0.0 % (0.0-0.2); Platelet Count Result 245 k/mm3 (150-375); Red Blood Count 5.26 M/mm3 (4.6-6.20); White Blood Count 12.1 K/mm3 (4.5-10.0)
[2025-07-23 04:42] LABS: Alanine Aminotransferase 30 U/L (6-50); Albumin Level 3.5 g/dL (3.5-5.1); Alkaline Phosphatase 44 U/L (38-126); Anion Gap 4 mmol/L (4-12); Aspartate Amino Transferase 28 U/L (17-59); Bilirubin,Total 0.8 mg/dL (0.2-1.3); Blood Urea Nitrogen 29 mg/dL (9-20); Calcium 8.2 mg/dL (8.4-10.2); Carbon Dioxide 27 mmol/L (22-30); Chloride 97 mmol/L (98-107); Estimated CRCL calculation 76 ml/min; Estimated Glomerular Filt Rate > 60; Glucose 131 mg/dL (65-110); Potassium 4.4 mmol/L (3.4-5.0); Sodium 128 mmol/L (137-145); Total Protein 6.6 g/dL (6.3-8.2)
[2025-07-23] MEDS: FLUTICASONE/UMECLIDIN/VILANTER 100-62.5-25 MCG ELLIPTA 1 PUFF INHALATION (07:32)
[2025-07-23] MEDS: THIAMINE HCL 100 MG TABLET PO (08:56)
[2025-07-23] MEDS: METOPROLOL TARTRATE 50 MG TAB PO (08:56)
[2025-07-23] MEDS: FOLIC ACID 1 MG TABLET PO (08:56)
[2025-07-23] MEDS: NITROFURANTOIN MONOHYD MACROCR 100 MG CAP PO (08:56)
[2025-07-23] MEDS: MINERAL OIL/WHITE PETROLATUM OINTMENT 1 APPLIC EACH EYE (09:10)
[2025-07-23] MEDS: PANTOPRAZOLE SODIUM IV 40 MG VIAL IV PUSH (09:10)
--- NOTE | 2025-07-23 09:41 | P.PNGS_ITS ---
Progress Note: A&P Assessment and Plan (1) Pneumothorax, left: Code(s): J93.9 - Pneumothorax, unspecified Status: Acute Assessment and Plan: no evidence of recurrent pneumothorax on chest x-ray this morning, lung sounds diminished but clear bilaterally, continue to encourage deep breathing and use of incentive spirometer, patient insistent on going home today Subjective Subjective Date/Time Seen: 07/23/25 09:41 Interval history: Feels okay, no issues with breathing, good oxygen saturation on room air Review of Systems Review of Systems: All systems reviewed & are unremarkable except as noted in HPI and below Exam Const: General: cooperative, comfortable, no acute distress and ill appearing Resp: Auscultation: clear to auscultation bilaterally and diminished lung sounds Other: left chest tube site clean dry and intact Cardio: Rate: tachycardic Rhythm: regular rhythm GI: Inspection: normal to inspection and non-distended GI Palp: No abdominal tenderness, Yes Soft to palpation, No Tenderness to palpation present (GI), No Guarding due to palpation present (GI) and No Rigid due to palpation Objective Data Vital Signs Vital Signs: Vital Signs - 24 hr 07/22/25 10:00 07/22/25 11:23 07/22/25 12:00 Temperature 36.6 C Pulse Rate 104 H 92 Pulse Rate [Apical Monitor] Pulse Rate [Bilateral Pedal (Dorsalis Pedis) Palpation] Respiratory Rate 22 H Blood Pressure 177/96 H Pulse Oximetry 94 97 Oxygen Delivery Room Air 07/22/25 12:00 07/22/25 12:00 07/22/25 13:19 Temperature Pulse Rate 119 H 99 Pulse Rate [Apical Monitor] Pulse Rate [Bilateral Pedal (Dorsalis Pedis) Palpation] 119 H Respiratory Rate Blood Pressure Pulse Oximetry Oxygen Delivery 07/22/25 14:00 07/22/25 16:00 07/22/25 16:00 Temperature 36.6 C Pulse Rate 117 H 55 L 104 H Pulse Rate [Apical Monitor] Pulse Rate [Bilateral Pedal (Dorsalis Pedis) Palpation] Respiratory Rate 22 H Blood Pressure 170/109 H Pulse Oximetry 96 Oxygen Delivery 07/22/25 16:00 07/22/25 18:00 07/22/25 20:00 Temperature 36.4 C L Pulse Rate 101 H 111 H Pulse Rate [Apical Monitor] Pulse Rate [Bilateral Pedal (Dorsalis Pedis) Palpation] 111 H Respiratory Rate 18 Blood Pressure 144/91 H Pulse Oximetry 96 Oxygen Delivery 07/22/25 20:00 07/22/25 20:43 07/22/25 20:43 Temperature Pulse Rate 112 H 111 H Pulse Rate [Apical Monitor] 111 H Pulse Rate [Bilateral Pedal (Dorsalis Pedis) Palpation] Respiratory Rate 18 Blood Pressure 144/91 H Pulse Oximetry 96 Oxygen Delivery Room Air 07/22/25 21:07 07/22/25 22:00 07/23/25 00:00 Temperature 36.9 C Pulse Rate 114 H 114 H 103 H Pulse Rate [Apical Monitor] Pulse Rate [Bilateral Pedal (Dorsalis Pedis) Palpation] Respiratory Rate 18 Blood Pressure 158/102 H Pulse Oximetry 94 Oxygen Delivery 07/23/25 00:00 07/23/25 00:31 07/23/25 00:31 Temperature Pulse Rate 91 Pulse Rate [Apical Monitor] Pulse Rate [Bilateral Pedal (Dorsalis Pedis) Palpation] Respiratory Rate Blood Pressure 158/107 H 153/122 H Pulse Oximetry Oxygen Delivery 07/23/25 00:40 07/23/25 00:40 07/23/25 02:00 Temperature Pulse Rate 103 H 98 Pulse Rate [Apical Monitor] 103 H Pulse Rate [Bilateral Pedal (Dorsalis Pedis) Palpation] Respiratory Rate 18 Blood Pressure 158/102 H Pulse Oximetry 94 Oxygen Delivery Room Air 07/23/25 03:37 07/23/25 04:00 07/23/25 04:10 Temperature 36.8 C Pulse Rate 96 90 Pulse Rate [Apical Monitor] 96 Pulse Rate [Bilateral Pedal (Dorsalis Pedis) Palpation] Respiratory Rate 16 Blood Pressure 159/95 H 159/95 H Pulse Oximetry 100 Oxygen Delivery 07/23/25 04:10 07/23/25 06:00 07/23/25 07:33 Temperature Pulse Rate 96 101 H 116 H Pulse Rate [Apical Monitor] Pulse Rate [Bilateral Pedal (Dorsalis Pedis) Palpation] Respiratory Rate 16 18 Blood Pressure Pulse Oximetry 100 Oxygen Delivery Room Air 07/23/25 08:00 07/23/25 08:00 07/23/25 08:56 Temperature 36.8 C Pulse Rate 107 H 114 H Pulse Rate [Apical Monitor] Pulse Rate [Bilateral Pedal (Dorsalis Pedis) Palpation] 114 H Respiratory Rate 16 Blood Pressure 169/109 H Pulse Oximetry 97 Oxygen Delivery Intake/Output Intake/Output: Intake & Output 07/20/25 07/21/25 07/22/25 07/23/25 23:59 23:59 23:59 23:59 Intake Total 328.6 2068 2544.2 120 Output Total 2225 1570 2715 1100 Balance -1896.4 498 -170.8 -980 Meds/Results Medications: Active Medications Generic Name Dose Route Start Last Admin Trade Name Freq PRN Reason Stop Dose Admin Al Hydrox/Mg Hydrox/Simethicone 30 ml 07/19/25 21:05 07/20/25 23:15 Mag Hydrox/Al Hydrox/Simeth 30 Ml Udc PO 30 ml Q6H PRN Administration Indigestion Albuterol/Ipratropium 3 ml 07/16/25 08:21 07/19/25 23:48 Ipratropium 0.5 Mg/Albuterol Sulfate 2.5 Mg (Base) Ampul.Neb 3 Ml INHALATION 3 ml Q6HRT PRN Administration Wheezing Dextrose 12.5 gm 07/16/25 08:21 Dextrose 50% 25 Gm/50 Ml Syringe IV PUSH PRN PRN Hypoglycemia Protocol Diazepam 5 mg 07/20/25 08:06 07/20/25 23:15 Diazepam Inj (*Crx) 10 Mg/2 Ml Syringe IV PUSH 5 mg Q2H PRN Administration CIWA 11-15 Diazepam 10 mg 07/20/25 08:06 07/21/25 08:29 Diazepam Inj (*Crx) 10 Mg/2 Ml Syringe IV PUSH 10 mg Q1H PRN Administration CIWA > 15 Fluticasone/Umeclidinium/Vilanterol 1 puff 07/22/25 13:55 07/23/25 07:32 Fluticasone/Umeclidin/Vilanter 100-62.5-25 Mcg Ellipta INHALATION 1 puff DAILYRT MIGUEL A Administration Folic Acid 1 mg 07/20/25 09:00 07/23/25 08:56 Folic Acid 1 Mg Tablet PO 1 mg DAILY MIGUEL A Administration Glucagon 1 mg 07/16/25 08:21 Glucagon For Inj 1 Mg Vial IM PRN PRN Hypoglycemia Protocol Glucose 15 gm 07/16/25 08:21 Glucose Oral Gel 15 Gm Of Glucse In 37.5 Gm Tube PO PRN PRN Hypoglycemia Protocol Dextrose 1,000 mls @ 100 mls/hr 07/16/25 08:21 Dextrose 5% 1,000 Ml IVPB PRN PRN Hypoglycemia Protocol Insulin Aspart 2 - 5 units 07/20/25 12:00 07/22/25 18:06 Insulin Aspart (*Bkc) 100 Units/Ml SUB-Q 2 units TIDWM MIGUEL A Administration Protocol Insulin Aspart 1 - 2 units 07/20/25 21:00 07/22/25 21:09 Insulin Aspart (*Bkc) 100 Units/Ml SUB-Q 1 units HS MIGUEL A Administration Protocol Labetalol HCl 20 mg 07/19/25 13:07 07/20/25 17:13 Labetalol Hcl Inj 100 Mg/20 Ml Vial IV PUSH 20 mg Q4H PRN Administration SBP > 160 and HR> 60 -1st choice Lisinopril 5 mg 07/22/25 13:00 07/23/25 08:56 Lisinopril 5 Mg Tablet PO 5 mg QAM MIGUEL A Administration Lorazepam 1 mg 07/20/25 08:04 07/21/25 20:52 Lorazepam (*Crx) 1 Mg Tablet PO 1 mg Q4H PRN Administration CIWA Score 8-10 Melatonin 5 mg 07/20/25 21:00 07/22/25 21:06 Melatonin 5 Mg Tablet PO 5 mg HS MIGUEL A Administration Methylprednisolone Sodium Succinate 60 mg 07/19/25 09:00 07/23/25 09:10 Methylprednisolone Sod Succ 125 Mg Vial IV PUSH 60 mg QAM MIGUEL A Administration Metoprolol Tartrate 5 mg 07/19/25 13:07 Metoprolol Tartrate Inj 5 Mg/5 Ml Vial IV PUSH Q2H PRN Heart rate more than 120 Metoprolol Tartrate 50 mg 07/22/25 21:00 07/23/25 08:56 Metoprolol Tartrate 50 Mg Tab PO 50 mg Q12HR MIGUEL A Administration Multi-Ingred Cream/Lotion/Oil/Oint 1 applic 07/16/25 21:00 07/23/25 09:10 Mineral Oil/White Petrolatum Ointment EACH EYE 1 applic Q12HR MIGUEL A Administration Nicotine 1 patch 07/23/25 01:30 07/23/25 02:00 Nicotine (*Pbkc) 14 Mg Patch TRANSDERM 1 patch DAILY MIGUEL A Administration Nitrofurantoin Macrocrystals 100 mg 07/20/25 10:05 07/23/25 08:56 Nitrofurantoin Monohyd Macrocr 100 Mg Cap PO 100 mg Q12HR MIGUEL A Administration Ondansetron HCl 4 mg 07/20/25 10:37 Ondansetron Inj 4 Mg/2 Ml Vial IV PUSH Q4H PRN Nausea And Vomiting Pantoprazole Sodium 40 mg 07/16/25 09:00 07/23/25 09:10 Pantoprazole Sodium Iv 40 Mg Vial IV PUSH 40 mg QAM MIGUEL A Administration Rivaroxaban 20 mg 07/23/25 17:00 Rivaroxaban 20 Mg Tablet PO DAILY@1700 MIGUEL A Thiamine HCl 100 mg 07/20/25 09:00 07/23/25 08:56 Thiamine Hcl 100 Mg Tablet PO 100 mg QAM MIGUEL A Administration Radiology Results: ITS Impressions Chest CTA 07/16/25 08:43 IMPRESSION: 1. No pulmonary embolus. 2. Moderate-sized left pneumothorax. 3. Mild pulmonary edema. 4. Left lung upper lobe nodules, which may be infection or less likely metastatic disease. 5. Moderate emphysema. Chest X-Ray 07/23/25 09:06 IMPRESSION: 1. Probably skinfold rather than pneumothorax along left upper lobe. But recommend repeat films with deep inspiration and expiration. Labs Labs: Laboratory Results - last 24 hr 07/22/25 07/22/25 07/22/25 11:53 16:09 20:30 WBC RBC Hgb Hct MCV MCH MCHC RDW Plt Count MPV Immature Gran % (Auto) Neut % (Auto) Lymph % (Auto) [place] % (Auto) Eos % (Auto) Baso % (Auto) Lymph # (Auto) [place] # (Auto) Eos # (Auto) Baso # (Auto) Abs Immat Gran (auto) Absolute Neuts (auto) Absolute Nucleated RBC Nucleated RBC % Sodium Potassium Chloride Carbon Dioxide Anion Gap BUN Creatinine Estim Creat Clear Calc Estimated GFR Glucose POC Capillary Glucose 174 H 208 H 216 H Calcium Total Bilirubin AST ALT Alkaline Phosphatase Total Protein Albumin 07/23/25 07/23/25 03:43 07:11 WBC 12.1 H RBC 5.26 Hgb 15.7 Hct 46.9 MCV 89.2 MCH 29.8 MCHC 33.5 RDW 15.8 H Plt Count 245 MPV 9.5 Immature Gran % (Auto) 1.9 H Neut % (Auto) 66.6 Lymph % (Auto) 14.6 L [place] % (Auto) 16.5 H Eos % (Auto) 0.1 Baso % (Auto) 0.3 Lymph # (Auto) 1.76 [place] # (Auto) 2.0 H Eos # (Auto) 0.0 Baso # (Auto) 0.0 Abs Immat Gran (auto) 0.23 H Absolute Neuts (auto) 8.0 H Absolute Nucleated RBC 0.000 Nucleated RBC % 0.0 Sodium 128 L Potassium 4.4 Chloride 97 L Carbon Dioxide 27 Anion Gap 4 BUN 29 H Creatinine 0.69 L Estim Creat Clear Calc 76 Estimated GFR > 60 Glucose 131 H POC Capillary Glucose 139 H Calcium 8.2 L Total Bilirubin 0.8 AST 28 ALT 30 Alkaline Phosphatase 44 Total Protein 6.6 Albumin 3.5
--- NOTE | 2025-07-23 10:51 | P.PNCA_ITS ---
Progress Note: A&P Assessment and Plan (1) Atrial fibrillation with rapid ventricular response: Code(s): I48.91 - Unspecified atrial fibrillation Status: Acute Assessment and Plan: Will further increase metoprolol up to 75 mg p.o. b.i.d.. I did talk to the patient. Despite polysubstance use, he states that he does not use cocaine, amphetamine or crack. Beta selective beta aki therefore will be used to assist with rate control. Continue Xarelto (2) Hypertension: Code(s): I10 - Essential (primary) hypertension Status: Acute Assessment and Plan: Will increase lisinopril to 10 mg daily (3) Polysubstance abuse: Code(s): F19.10 - Other psychoactive substance abuse, uncomplicated Status: Chronic Assessment and Plan: Fentanyl use. Counseling performed (4) Alcohol abuse: Code(s): F10.10 - Alcohol abuse, uncomplicated Status: Acute Assessment and Plan: Consult performed (5) COPD (chronic obstructive pulmonary disease): Qualifiers: COPD type: emphysema Emphysema type: unspecified Qualified Code(s): J43.9 - Emphysema, unspecified Code(s): J44.9 - Chronic obstructive pulmonary disease, unspecified Status: Chronic Assessment and Plan: Significant COPD history with pulmonary hypertension noted. Pulmonary hypertension likely secondary to underlying lung disease. (6) Tobacco abuse disorder: Code(s): Z72.0 - Tobacco use Status: Acute Assessment and Plan: Ongoing. Tobacco abuse counseling also performed. Subjective Date/time seen: 07/23/25 10:51 Interval history: 65-year-old male with PMH BPH, tobacco use disorder, alcohol abuse, fentanyl abuse, AFib on Xarelto and metoprolol but noncompliant, cardiomyopathy, history of UTI, hypertension, presenting to [facility] on 07/15/2025 complaining of shortness of breath. Cardiology consult for atrial fibrillation Date of service 07/23/2025: Heart rate is better in generally in the upper 90s. Has no chest pain. No unusual shortness of breath. Wants to go home Review of Systems Review of Systems: All systems reviewed & are unremarkable except as noted in HPI and below Constitutional: Constitutional: Denies body ache(s), Denies excessive sweating and Denies headache(s) Eyes: Eyes: Denies blurry vision ENT: Reports Normal hearing present and Denies headache(s) Cardiovascular: Cardiovascular: Denies leg edema and Reports dyspnea Respiratory: Respiratory: Reports dyspnea Gastrointestinal: Gastrointestinal: Denies abdominal pain Genitourinary: Genitourinary: Denies hematuria Musculoskeletal: Musculoskeletal: Denies arthralgias Integumentary/Breasts: Skin/Breast: Denies dry skin Neurologic: Reports Normal hearing present, Denies behavioral changes and Denies headache(s) Psychiatric: Psychiatric: Denies behavioral changes Endocrine: Endocrine: Denies excessive sweating Hematologic/Lymphatic: Hematologic/Lymphatic: Denies easy bleeding Allergic/Immunologic: Allergic/Immunologic: Denies GI upset with certain foods Exam Narrative: Appears older than stated age. Appears unkempt Const: General: comfortable and no acute distress HENMT: Ears: TM's normal bilaterally Face/Nose/Sinus: Normal nares present Eyes: General: appearance normal, both eyes and all related structures Sclera: sclerae normal Neck: Neck: supple and no JVD Chest: Other: No reproducible chest wall pain to palpation Resp: Effort & Inspection: normal respiratory effort Auscultation: diminished lung sounds Cardio: Rate: tachycardic Rhythm: abnormal rhythm irregularly irregular GI: Inspection: non-distended Skin: General skin exam: normal color Neuro: Cranial nerves: Yes Normal hearing present Speech: normal speech Extrem: General: normal to inspection and no edema Psych: Mental Status: mental status grossly normal Objective Data Vital Signs Vital Signs: Vital Signs - 24 hr 07/22/25 11:23 07/22/25 12:00 07/22/25 12:00 Temperature 36.6 C Pulse Rate 92 Pulse Rate [Apical Monitor] Pulse Rate [Bilateral Pedal (Dorsalis Pedis) Palpation] 119 H Respiratory Rate 22 H Blood Pressure 177/96 H Pulse Oximetry 94 97 Oxygen Delivery Room Air 07/22/25 12:00 07/22/25 13:19 07/22/25 14:00 Temperature Pulse Rate 119 H 99 117 H Pulse Rate [Apical Monitor] Pulse Rate [Bilateral Pedal (Dorsalis Pedis) Palpation] Respiratory Rate Blood Pressure Pulse Oximetry Oxygen Delivery 07/22/25 16:00 07/22/25 16:00 07/22/25 16:00 Temperature 36.6 C Pulse Rate 55 L 104 H Pulse Rate [Apical Monitor] Pulse Rate [Bilateral Pedal (Dorsalis Pedis) Palpation] 111 H Respiratory Rate 22 H Blood Pressure 170/109 H Pulse Oximetry 96 Oxygen Delivery 07/22/25 18:00 07/22/25 20:00 07/22/25 20:00 Temperature 36.4 C L Pulse Rate 101 H 111 H 112 H Pulse Rate [Apical Monitor] Pulse Rate [Bilateral Pedal (Dorsalis Pedis) Palpation] Respiratory Rate 18 Blood Pressure 144/91 H Pulse Oximetry 96 Oxygen Delivery 07/22/25 20:43 07/22/25 20:43 07/22/25 21:07 Temperature Pulse Rate 111 H 114 H Pulse Rate [Apical Monitor] 111 H Pulse Rate [Bilateral Pedal (Dorsalis Pedis) Palpation] Respiratory Rate 18 Blood Pressure 144/91 H Pulse Oximetry 96 Oxygen Delivery Room Air 07/22/25 22:00 07/23/25 00:00 07/23/25 00:00 Temperature 36.9 C Pulse Rate 114 H 103 H 91 Pulse Rate [Apical Monitor] Pulse Rate [Bilateral Pedal (Dorsalis Pedis) Palpation] Respiratory Rate 18 Blood Pressure 158/102 H Pulse Oximetry 94 Oxygen Delivery 07/23/25 00:31 07/23/25 00:31 07/23/25 00:40 Temperature Pulse Rate Pulse Rate [Apical Monitor] 103 H Pulse Rate [Bilateral Pedal (Dorsalis Pedis) Palpation] Respiratory Rate Blood Pressure 158/107 H 153/122 H 158/102 H Pulse Oximetry Oxygen Delivery 07/23/25 00:40 07/23/25 02:00 07/23/25 03:37 Temperature 36.8 C Pulse Rate 103 H 98 96 Pulse Rate [Apical Monitor] Pulse Rate [Bilateral Pedal (Dorsalis Pedis) Palpation] Respiratory Rate 18 16 Blood Pressure 159/95 H Pulse Oximetry 94 100 Oxygen Delivery Room Air 07/23/25 04:00 07/23/25 04:10 07/23/25 04:10 Temperature Pulse Rate 90 96 Pulse Rate [Apical Monitor] 96 Pulse Rate [Bilateral Pedal (Dorsalis Pedis) Palpation] Respiratory Rate 16 Blood Pressure 159/95 H Pulse Oximetry 100 Oxygen Delivery Room Air 07/23/25 06:00 07/23/25 07:33 07/23/25 08:00 Temperature 36.8 C Pulse Rate 101 H 116 H 107 H Pulse Rate [Apical Monitor] Pulse Rate [Bilateral Pedal (Dorsalis Pedis) Palpation] Respiratory Rate 18 16 Blood Pressure 169/109 H Pulse Oximetry 97 Oxygen Delivery 07/23/25 08:00 07/23/25 08:56 07/23/25 09:21 Temperature Pulse Rate 114 H Pulse Rate [Apical Monitor] Pulse Rate [Bilateral Pedal (Dorsalis Pedis) Palpation] 114 H Respiratory Rate Blood Pressure Pulse Oximetry Oxygen Delivery Room Air Intake/Output Intake/Output: Intake & Output 07/20/25 07/21/25 07/22/25 07/23/25 23:59 23:59 23:59 23:59 Intake Total 328.6 2068 2544.2 120 Output Total 2225 1570 2715 1100 Balance -1896.4 498 -170.8 -980 Meds/Results Medications: Active Medications Generic Name Dose Route Start Last Admin Trade Name Freq PRN Reason Stop Dose Admin Al Hydrox/Mg Hydrox/Simethicone 30 ml 07/19/25 21:05 07/20/25 23:15 Mag Hydrox/Al Hydrox/Simeth 30 Ml Udc PO 30 ml Q6H PRN Administration Indigestion Albuterol/Ipratropium 3 ml 07/16/25 08:21 07/19/25 23:48 Ipratropium 0.5 Mg/Albuterol Sulfate 2.5 Mg (Base) Ampul.Neb 3 Ml INHALATION 3 ml Q6HRT PRN Administration Wheezing Dextrose 12.5 gm 07/16/25 08:21 Dextrose 50% 25 Gm/50 Ml Syringe IV PUSH PRN PRN Hypoglycemia Protocol Diazepam 5 mg 07/20/25 08:06 07/20/25 23:15 Diazepam Inj (*Crx) 10 Mg/2 Ml Syringe IV PUSH 5 mg Q2H PRN Administration CIWA 11-15 Diazepam 10 mg 07/20/25 08:06 07/21/25 08:29 Diazepam Inj (*Crx) 10 Mg/2 Ml Syringe IV PUSH 10 mg Q1H PRN Administration CIWA > 15 Fluticasone/Umeclidinium/Vilanterol 1 puff 07/22/25 13:55 07/23/25 07:32 Fluticasone/Umeclidin/Vilanter 100-62.5-25 Mcg Ellipta INHALATION 1 puff DAILYRT MIGUEL A Administration Folic Acid 1 mg 07/20/25 09:00 07/23/25 08:56 Folic Acid 1 Mg Tablet PO 1 mg DAILY MIGUEL A Administration Glucagon 1 mg 07/16/25 08:21 Glucagon For Inj 1 Mg Vial IM PRN PRN Hypoglycemia Protocol Glucose 15 gm 07/16/25 08:21 Glucose Oral Gel 15 Gm Of Glucse In 37.5 Gm Tube PO PRN PRN Hypoglycemia Protocol Dextrose 1,000 mls @ 100 mls/hr 07/16/25 08:21 Dextrose 5% 1,000 Ml IVPB PRN PRN Hypoglycemia Protocol Insulin Aspart 2 - 5 units 07/20/25 12:00 07/22/25 18:06 Insulin Aspart (*Bkc) 100 Units/Ml SUB-Q 2 units TIDWM MIGUEL A Administration Protocol Insulin Aspart 1 - 2 units 07/20/25 21:00 07/22/25 21:09 Insulin Aspart (*Bkc) 100 Units/Ml SUB-Q 1 units HS MIGUEL A Administration Protocol Labetalol HCl 20 mg 07/19/25 13:07 07/20/25 17:13 Labetalol Hcl Inj 100 Mg/20 Ml Vial IV PUSH 20 mg Q4H PRN Administration SBP > 160 and HR> 60 -1st choice Lisinopril 5 mg 07/22/25 13:00 07/23/25 08:56 Lisinopril 5 Mg Tablet PO 5 mg QAM MIGUEL A Administration Lorazepam 1 mg 07/20/25 08:04 07/21/25 20:52 Lorazepam (*Crx) 1 Mg Tablet PO 1 mg Q4H PRN Administration CIWA Score 8-10 Melatonin 5 mg 07/20/25 21:00 07/22/25 21:06 Melatonin 5 Mg Tablet PO 5 mg HS MIGUEL A Administration Methylprednisolone Sodium Succinate 60 mg 07/19/25 09:00 07/23/25 09:10 Methylprednisolone Sod Succ 125 Mg Vial IV PUSH 60 mg QAM MIGUEL A Administration Metoprolol Tartrate 5 mg 07/19/25 13:07 Metoprolol Tartrate Inj 5 Mg/5 Ml Vial IV PUSH Q2H PRN Heart rate more than 120 Metoprolol Tartrate 50 mg 07/22/25 21:00 07/23/25 08:56 Metoprolol Tartrate 50 Mg Tab PO 50 mg Q12HR MIGUEL A Administration Multi-Ingred Cream/Lotion/Oil/Oint 1 applic 07/16/25 21:00 07/23/25 09:10 Mineral Oil/White Petrolatum Ointment EACH EYE 1 applic Q12HR MIGUEL A Administration Nicotine 1 patch 07/23/25 01:30 07/23/25 02:00 Nicotine (*Pbkc) 14 Mg Patch TRANSDERM 1 patch DAILY MIGUEL A Administration Nitrofurantoin Macrocrystals 100 mg 07/20/25 10:05 07/23/25 08:56 Nitrofurantoin Monohyd Macrocr 100 Mg Cap PO 100 mg Q12HR MIGUEL A Administration Ondansetron HCl 4 mg 07/20/25 10:37 Ondansetron Inj 4 Mg/2 Ml Vial IV PUSH Q4H PRN Nausea And Vomiting Pantoprazole Sodium 40 mg 07/16/25 09:00 07/23/25 09:10 Pantoprazole Sodium Iv 40 Mg Vial IV PUSH 40 mg QAM MIGUEL A Administration Rivaroxaban 20 mg 07/23/25 17:00 Rivaroxaban 20 Mg Tablet PO DAILY@1700 MIGUEL A Thiamine HCl 100 mg 07/20/25 09:00 07/23/25 08:56 Thiamine Hcl 100 Mg Tablet PO 100 mg QAM MIGUEL A Administration Radiology Results: ITS Impressions Chest CTA 07/16/25 08:43 IMPRESSION: 1. No pulmonary embolus. 2. Moderate-sized left pneumothorax. 3. Mild pulmonary edema. 4. Left lung upper lobe nodules, which may be infection or less likely metastatic disease. 5. Moderate emphysema. Chest X-Ray 07/23/25 09:06 IMPRESSION: 1. Probably skinfold rather than pneumothorax along left upper lobe. But recommend repeat films with deep inspiration and expiration. Labs Labs: Laboratory Results - last 24 hr 07/22/25 07/22/25 07/22/25 11:53 16:09 20:30 WBC RBC Hgb Hct MCV MCH MCHC RDW Plt Count MPV Immature Gran % (Auto) Neut % (Auto) Lymph % (Auto) [place] % (Auto) Eos % (Auto) Baso % (Auto) Lymph # (Auto) [place] # (Auto) Eos # (Auto) Baso # (Auto) Abs Immat Gran (auto) Absolute Neuts (auto) Absolute Nucleated RBC Nucleated RBC % Sodium Potassium Chloride Carbon Dioxide Anion Gap BUN Creatinine Estim Creat Clear Calc Estimated GFR Glucose POC Capillary Glucose 174 H 208 H 216 H Calcium Total Bilirubin AST ALT Alkaline Phosphatase Total Protein Albumin 07/23/25 07/23/25 03:43 07:11 WBC 12.1 H RBC 5.26 Hgb 15.7 Hct 46.9 MCV 89.2 MCH 29.8 MCHC 33.5 RDW 15.8 H Plt Count 245 MPV 9.5 Immature Gran % (Auto) 1.9 H Neut % (Auto) 66.6 Lymph % (Auto) 14.6 L [place] % (Auto) 16.5 H Eos % (Auto) 0.1 Baso % (Auto) 0.3 Lymph # (Auto) 1.76 [place] # (Auto) 2.0 H Eos # (Auto) 0.0 Baso # (Auto) 0.0 Abs Immat Gran (auto) 0.23 H Absolute Neuts (auto) 8.0 H Absolute Nucleated RBC 0.000 Nucleated RBC % 0.0 Sodium 128 L Potassium 4.4 Chloride 97 L Carbon Dioxide 27 Anion Gap 4 BUN 29 H Creatinine 0.69 L Estim Creat Clear Calc 76 Estimated GFR > 60 Glucose 131 H POC Capillary Glucose 139 H Calcium 8.2 L Total Bilirubin 0.8 AST 28 ALT 30 Alkaline Phosphatase 44 Total Protein 6.6 Albumin 3.5
--- NOTE | 2025-07-23 15:46 | P.DS_ITS ---
DS: Admitting Diagnosis Discharge Date 07/23/25 Admitting Diagnosis Acute respiratory failure DS: Discharge Diagnosis Discharge Diagnosis (1) Sepsis: Code(s): A41.9 - Sepsis, unspecified organism Status: Acute DS: Summary Hospital Course Hospital Course: 65-year-old male with PMH BPH, tobacco use disorder, alcohol use disorder, fentanyl use disorder, AFib on Xarelto,, noncompliant. Cardiomyopathy, history of UTI, hypertension presents to [place] on 07/15/2025 complaining of shortness of breath. During inpatient admission patient treated for respiratory failure with hypoxia and hypercapnia, acute exacerbation of COPD, pneumothorax left side, alcohol abuse, hypertension, atrial fibrillation with RVR, cardiomyopathy, electrolyte abnormalities, hyperglycemia, sepsis secondary to UTI. Patient was transferred out of ICU and relatively stable however not medically ready for discharge due to need for close monitoring and further adjustments. This was discussed at length at bedside however patient decided to leave against medical advice. He was heavily counseled encouraged to say however he decided to leave in spite of the risk of rapid deterioration, mortality, prolonged morbidity. He was A&O x4, able to understand his medical situation and make proper decisions. He left in stable condition. Time Spent with Patient Time attestation: Total time spent providing and/or coordinating discharge services: Time spent: Greater than 30 minutes Exam Const: General: comfortable and no acute distress Other: A&O x4 HENMT: Mouth: Yes moist mucous membranes Eyes: Pupils: Equal, round and reactive pupils present Neck: Neck: supple Resp: Effort & Inspection: normal respiratory effort Auscultation: clear to auscultation bilaterally Cardio: Rate: regular rate Rhythm: regular rhythm GI: GI Palp: Yes Soft to palpation Neuro: Motor exam (neuro): 5/5 motor strength present throughout Extrem: General: no edema Psych: Mental Status: mental status grossly normal DS: Data Data Completed and Pending Labs on day of discharge: Labs from last 24 hours 07/23/25 07/23/25 07/23/25 10:54 07:11 03:43 WBC 12.1 H RBC 5.26 Hgb 15.7 Hct 46.9 MCV 89.2 MCH 29.8 MCHC 33.5 RDW 15.8 H Plt Count 245 MPV 9.5 Immature Gran % (Auto) 1.9 H Neut % (Auto) 66.6 Lymph % (Auto) 14.6 L [place] % (Auto) 16.5 H Eos % (Auto) 0.1 Baso % (Auto) 0.3 Lymph # (Auto) 1.76 [place] # (Auto) 2.0 H Eos # (Auto) 0.0 Baso # (Auto) 0.0 Abs Immat Gran (auto) 0.23 H Absolute Neuts (auto) 8.0 H Absolute Nucleated RBC 0.000 Nucleated RBC % 0.0 Sodium 128 L Potassium 4.4 Chloride 97 L Carbon Dioxide 27 Anion Gap 4 BUN 29 H Creatinine 0.69 L Estim Creat Clear Calc 76 Estimated GFR > 60 Glucose 131 H POC Capillary Glucose 128 H 139 H Calcium 8.2 L Total Bilirubin 0.8 AST 28 ALT 30 Alkaline Phosphatase 44 Total Protein 6.6 Albumin 3.5 07/22/25 07/22/25 20:30 16:09 WBC RBC Hgb Hct MCV MCH MCHC RDW Plt Count MPV Immature Gran % (Auto) Neut % (Auto) Lymph % (Auto) [place] % (Auto) Eos % (Auto) Baso % (Auto) Lymph # (Auto) [place] # (Auto) Eos # (Auto) Baso # (Auto) Abs Immat Gran (auto) Absolute Neuts (auto) Absolute Nucleated RBC Nucleated RBC % Sodium Potassium Chloride Carbon Dioxide Anion Gap BUN Creatinine Estim Creat Clear Calc Estimated GFR Glucose POC Capillary Glucose 216 H 208 H Calcium Total Bilirubin AST ALT Alkaline Phosphatase Total Protein Albumin Discharge Plan Discharge Consulting providers: Tretn Hernandez; Alexys Yen; Marcel Oro; Jordana Joshua; Og Mcclain; Nadine Fischer; Gato Kulkarni; Alisha Silveira; James June Oca; Jaquelin Swann; Geetha Jaimes; Anant Chambers; Presley Harden V.; Uche Villagomez; Frederick Reyes; Roverto Servin; Mani Boles Patient Disposition: Left Against Medical Advice Patient Instructions: Spontaneous Pneumothorax (GEN), Removal of a Central Line, PICC, or Midline Catheter (GEN) Patient Language: Congolese Discharge Medications: No Action No Home Medications Date of admission: 07/16/25 00:24 Primary Care Provider: LizzieRios Admitting Provider: Yeni Menendez Attending physician on admission: Yeni Menendez Condition: Serious Hospitalist MIPS Heart Failure (Exclusion) Patient has history of Heart Transplant or Left Ventricular Assistive Device?: No IF YES, STOP HERE Heart Failure (Qualifier) Patient has current or prior documentation of LVEF less than or equal to 40%, or mod/servere depressed LVSF?: No IF NO, STOP HERE
== END 2025-07-23 14:30 | disposition left against medical advice (07) | DRG 871 ==
LOC: ANHED 21:28 → ANHICU 07-16 01:03 → ANHIMU 07-20 21:15
PROVIDERS: Internal Medicine; Student in an Organized Health Care Education/Training Program; Admitting Provider General Practice; Emergency Provider Student in an Organized Health Care Education/Training Program; PCP Hospitalist; Visit Provider General Practice
DX: A41.9 Sepsis, unspecified organism (principal); J96.21 Acute and chronic respiratory failure with hypoxia; J96.22 Acute and chronic respiratory failure with hypercapnia; N39.0 Urinary tract infection, site not specified; J44.1 Chronic obstructive pulmonary disease with (acute) exacerbation; J93.83 Other pneumothorax; I48.20 Chronic atrial fibrillation, unspecified; I42.9 Cardiomyopathy, unspecified; B96.89 Other specified bacterial agents as the cause of diseases classified elsewhere; F19.10 Other psychoactive substance abuse, uncomplicated; F10.10 Alcohol abuse, uncomplicated; N40.0 Benign prostatic hyperplasia without lower urinary tract symptoms; R73.9 Hyperglycemia, unspecified; E87.8 Other disorders of electrolyte and fluid balance, not elsewhere classified; Z91.199 Patient's noncompliance with other medical treatment and regimen due to unspecified reason
CPT/HCPCS: 31500; 32551; 36415; 36556; 36600; 71045; 71275; 80053; 80307; 81001; 82077; 82375; 82805; 82948; 83050; 83690; 83735; 84100; 84484; 85018; 85025; 85027; 85055; 85610; 85730; 87040; 87086; 87186; 87637; 87641; 93005; 93306; 94002; 94003; 94640; 96361; 96374; 96375; 97161; 97165; 99291; A9270; C1729; C1751; J0166; J0592; J0613; J0696; J1163; J1644; J1650; J1815; J1956; J2185; J2250; J2405; J2470; J2704; J2919; J3010; J3360; J3475; J7030; J7120; Q9967